=== PATIENT | male | born 1955 | race Caucasian/White ===

== ENCOUNTER 2016-03-29 04:05 | Inpatient (IN) | payer OTHER ==
[~2016-03-29] VITALS: Ht 177.8 cm; Wt 141.8 kg
[2016-03-29] VITALS (14 sets, daily range): BP systolic 123–173; BP diastolic 60–99; PULSE 58–65; TEMP 36.4–37.2; O2SAT 91–100; Ht 177.8 cm; Wt 141.8 kg
[~2016-03-29 04:05] MED LIST: ALBU0.08 INH; AMIO0.1T PO; ATOR10TA88 PO; DOCU100C31 PO; FLM4 PO; IPRASOL4 INH; LCTX PO; METO25TA56 PO; MULT-513 PO; OXGN XXX; PANT40TA PO; PLMIH INH; SYN100 PO; TYL325X PO; WARF-246 PO
--- NOTE | 2016-03-29 04:38 | EMERGENCY ROOM VISIT NOTE ---
History Report prepared by Nicola: Kareem Curry Under the Supervision of: Dr. Tiffany Vela D.O. First contact with patient: 04:24 Chief Complaint: RESPIRATORY PROBLEMS Stated Complaint: BREATHING DIFFICULTY Nursing Triage Summary: Pt was diagnosed with pneumonia recently with home antibiotics. Pt has been complaining of increased shortness of breath/difficulty breathing the past couple days with increase secretions of trach. EMS suctioned trach with pink secretions. History of Present Illness This HPI is limited due to the status of the patient. The patient is a 60 year old male who presents to the Emergency Room with complaints of worsening shortness of breath and difficulty breathing that he has been experiencing for the past couple of days. The patient states that his status has been worsening throughout the day today. Per EMS the patient was recently diagnosed with pneumonia and sent home with antibiotics. He has also had increased secretions in his tracheotomy site. 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 Past Medical & Surgical Medical Problems: (1) ADAM (acute kidney injury) (2) Asthma (3) Atrial fibrillation and flutter (4) Bacterial infection due to Pseudomonas (5) Chronic indwelling Fitch catheter (6) DVT of lower extremity (deep venous thrombosis) (7) Dyshidrosis (8) Dyslipidemia (9) HCAP (healthcare-associated pneumonia) (10) Heart failure, systolic, due to idiopathic cardiomyopathy (11) Hx MRSA infection (12) Hyperkalemia (13) Iron deficiency anemia (14) Lymphedema (15) Morbid obesity with BMI of 60.0-69.9, adult (16) Obesity hypoventilation syndrome (17) KEARA (obstructive sleep apnea) (18) Pneumonia (19) Respiratory failure, acute (20) Sepsis (21) SOB (shortness of breath) (22) Thrombophlebitis leg (23) Venous insufficiency Surgical Problems: (1) H/O tracheostomy (2) H/O ventral hernia repair Family History Diabetes mellitus FATHER FH: heart disease MOTHER (CABG at age 68) Social History Smoking Status: Never Smoker Alcohol Use: none Drug Use: none Marital Status: Housing Status: lives with significant other Occupation Status: disabled Current/Historical Medications Scheduled Amiodarone Hcl (Amiodarone Hcl), 100 MG PO DAILY Atorvastatin (Lipitor), 10 MG PO HS Dornase Darnell (Pulmozyme), 2.5 ML INH BID Lactobacillus Acidophilus (Lactinex), 2 TAB PO TID Levothyroxine Sodium (Synthroid), 100 MCG PO DAILYBB Metoprolol Tartrate (Lopressor) (Lopressor), 25 MG PO DAILY Multivitamins/Minerals (Mvi With Minerals), 1 TAB PO DAILY Oxygen (Oxygen), 5 LITER XXX CONTINOUS Pantoprazole (Protonix), 40 MG PO DAILY Tamsulosin HCl (Tamsulosin HCl), 0.4 MG PO HS Warfarin Sodium (Warfarin Sodium), 1 TAB PO DAILY Scheduled PRN Acetaminophen (Tylenol), 650 MG PO Q4H PRN for Pain Albuterol Soln (Proventil 0.083% 2.5MG/3ML), 2.5 MG INH Q4 PRN for SOB/Wheezing Docusate Sodium (Docusate Sodium), 1 CAP PO BID PRN for Constipation Ipratropium-Albuterol (Duoneb), 3 ML INH QIDR PRN for SOB/Wheezing Allergies Coded Allergies: Cefepime (Verified Allergy, Intermediate, RASH, 03/29/16) PER DR. LEVY Latex (Verified Allergy, Intermediate, DERMITITIS, 03/29/16) Aztreonam (Verified Allergy, Mild, RASH, 03/29/16) Physical Exam Vital Signs Date Time Temp Pulse Resp B/P Pulse Ox O2 Delivery O2 Flow Rate FiO2 03/29/16 07:03 60 30 165/69 91 Trach Collar 15.0 100 03/29/16 06:14 158/67 03/29/16 06:10 59 35 97 Trach Collar 15.0 03/29/16 05:59 162/64 03/29/16 05:49 64 03/29/16 05:40 61 36 97 03/29/16 05:31 65 03/29/16 05:29 125/55 03/29/16 05:26 60 03/29/16 05:10 71 37 03/29/16 05:05 58 25 90 Trach Collar 15.0 03/29/16 04:59 128/64 03/29/16 04:42 87 Non-Rebreather 15.0 03/29/16 04:35 59 37 94 03/29/16 04:29 109/70 12/19/16 04:19 60 03/29/16 04:16 62 03/29/16 04:16 63 03/29/16 04:15 107/60 03/29/16 04:14 71 03/29/16 04:12 130/ 03/29/16 04:05 Non-Rebreather 10.0 03/29/16 04:05 37.2 60 31 107/60 86 Non-Rebreather Physical Exam General: Morbidly obese male, cyanotic, lethargic HEENT: Head - normocephalic and atraumatic Pupils are equal, round, and reactive to light. Extraocular eye muscles are intact, and sclera are anicteric. Nose - moist nasal mucosa without discharge. Mouth - moist buccal mucosa. Oropharynx is nonerythematous and there is no tonsillar exudate or edema noted. Neck: Supple; no JVD, nuchal rigidity, cervical lymphadenopathy. Heart: Regular rate and rhythm. There is a normal S1 and S2 with no murmurs, clicks, or gallops appreciated. Lungs: Very diminished breath sounds in all lung olguin, with no wheezes, rales , or rhonchi. Abdomen: Soft, completely nontender, nondistended, with good bowel sounds. There are no palpable pulsatile masses or hepatosplenomegaly. There is no guarding, rigidity, or rebound noted. Extremities: No evidence of cyanosis, clubbing, or edema. There are easily palpable peripheral pulses. Skin: Cyanotic, pale warm and dry with good turgor and no rashes. Medical Decision & Procedures ER Provider Diagnostic Interpretation: X-ray results as stated below per interpretation by me and the radiologist: CHEST X-RAY: Cardiomegaly, cardiac pacemaker in place. Significant congestive heart failure. Laboratory Results Test 03/29/16 04:23 03/29/16 04:33 03/29/16 06:55 RDW Standard Deviation 51.6 fL (36.4-46.3) RDW Coefficient of Variation 15.7 % (11.5-14.5) White Blood Count 8.51 K/uL (4.8-10.8) Red Blood Count 3.67 M/uL (4.7-6.1) Hemoglobin 9.9 g/dL (14.0-18.0) Hematocrit 33.1 % (42-52) Mean Corpuscular Volume 90.2 fL (80-100) Mean Corpuscular Hemoglobin 27.0 pg (25-34) Mean Corpuscular Hemoglobin Concent 29.9 g/dl (32-36) Platelet Count 369 K/uL (130-400) Mean Platelet Volume 8.7 fL (7.4-10.4) Neutrophils (%) (Auto) 83.1 % Lymphocytes (%) (Auto) 9.6 % Monocytes (%) (Auto) 6.1 % Eosinophils (%) (Auto) 0.1 % Basophils (%) (Auto) 0.2 % Neutrophils # (Auto) 7.06 K/uL (1.4-6.5) Lymphocytes # (Auto) 0.82 K/uL (1.2-3.4) Monocytes # (Auto) 0.52 K/uL (0.11-0.59) Eosinophils # (Auto) 0.01 K/uL (0-0.5) Basophils # (Auto) 0.02 K/uL (0-0.2) Immature Granulocyte % (Auto) 0.9 % Immature Granulocyte # (Auto) 0.08 K/uL (0.00-0.02) Nucleated RBC Absolute Count (auto) 0.07 K/uL (0-0) Nucleated Red Blood Cells % 0.8 % Activated Partial Thromboplast Time 53.8 SECONDS (21.0-31.0) Partial Thromboplastin Ratio 2.1 Est Creatinine Clear Calc Drug Dose 111.3 ml/min Total Creatine Kinase 22 U/L (39-308) Creatine Kinase MB 2.4 ng/ml (0.5-3.6) Creatine Kinase MB Ratio 10.9 (0-3.0) Thyroid Stimulating Hormone (TSH) 6.400 uIu/ml (0.300-4.500) Free Thyroxine 0.99 ng/dl (0.80-1.60) Bedside Troponin I 0.100 ng/ml (0-0.045) ZP-Jfy-X-Type Natriuretic Peptide 37310 pg/ml (0-900) Arterial Blood pH 7.08 (7.35-7.45) Arterial Blood Partial Pressure CO2 129 mmHg (35-46) Arterial Blood Partial Pressure O2 79 mm/Hg (80-95) Arterial Blood HCO3 38 mmol/L (19-24) Arterial Blood Oxygen Saturation 90.9 % (90-95) Arterial Blood Base Excess 4.3 mEq/L (-9-1.8) Arterial Blood Gas Delivery 15 L TRACH Kenton Test POS (POS) Lactic Acid Level 0.7 mmol/L (0.4-2.0) Laboratory results per my review. Medications Administered Medications (Trade) Dose Ordered Sig/Kelly Route Start Time Stop Time Status Last Admin Dose Admin Albuterol/ Ipratropium (Duoneb) 3 ml NOW STAT INH 03/29/16 05:31 03/29/16 05:32 DC 03/29/16 05:42 3 ML Furosemide (Lasix Inj) 40 mg NOW STAT IV 03/29/16 05:32 03/29/16 05:33 DC 03/29/16 05:44 40 MG Methylprednisolone Sodium Succinate (Solu-Medrol IV) 125 mg NOW STAT IV 03/29/16 05:32 03/29/16 05:33 DC 03/29/16 05:44 125 MG Heparin Sodium (Porcine) 5 ml 5 ml STK-MED ONCE .ROUTE 03/29/16 05:43 03/29/16 05:44 DC 03/29/16 05:44 5 ML Phytonadione/ Sodium Chloride (Aqua-Mephyton Inj/Nss 50ml) 51 ml @ 102 mls/hr NOW STAT IV 03/29/16 06:45 03/29/16 07:14 DC 03/29/16 06:58 102 MLS/HR Albuterol (Ventolin Hfa Inhaler) 4 puffs Q6H INH 03/29/16 07:30 04/28/16 07:29 03/30/16 02:05 4 PUFFS Procedure Medications Ordered: Nebulizer ECG Indication: SOB/dyspnea Rate (beats per minute): 63 Rhythm: sinus rhythm Findings: PVC (multifocal ), prolonged QT (at 517) ED Course 0426: Past medical records reviewed. The patient was evaluated in room B8. A complete history and physical exam was performed. Laboratory studies were drawn as above. A twelve-lead EKG was obtained. The patient was observing the site monitor and pulse oximeter. 0445: Respiratory therapy is at bedside doing aggressive pulmonary toilet. To include tracheotomy suctioning, Mucomyst, and beta-agonist therapy. They describe a thick yellow/brown and bloody mucous that was suctioned from his trach. Patient had chest x-ray as described above. 0511: I reevaluated the patient at this time, he is at 97% O2 and appears to be breathing more comfortably. He remains lethargic. An ABG was obtained which showed severe respiratory acidosis. 0522: I discussed the case with Dr. Fan Harmon he will evaluate the patient for further treatment. Medical Decision This patient is a 60 year old male who presents to the Emergency Department in respiratory distress. Differential Diagnosis include: respiratory failure, pneumonia, CHF, tracheotomy malfunction. Laboratory results were reviewed and show: A blood pH of 7.15, pCO2 of 107, PO2 of 92, Bicarb of 37, While blood cell count of 8.5, hemoglobin of 8.9, BNP 97919 , troponin of 0.100, BUN of 24, Creatinine of 1.2, and glucose of 125. INR is greater than 8. The patient presents to the emergency department with hypoxic respiratory failure. The patient has a history of this. Patient most likely became significantly hypercarbic with respiratory acidosis. This is lead to some moderate lethargy and significant hypoxia. We did review the patient's CODE STATUS from previous inpatient paperwork. It seems that he is a full code. EMS stated that the patient's would be coming in. She did not arrive here in the emergency department while I was caring for him. I discussed the case with Dr. Decker and he will evaluate for further management. Consults Time Called: [phone] Consulting Physician: Dr. Fan Harmon Returned Call: [phone] I discussed the case with Dr. Fan Harmon he will evaluate the patient for further treatment. Impression Primary Impression: Respiratory failure with hypoxia Critical Care I have personally spent greater than 45 minutes of critical care time in the direct management of this patient. This includes bedside care, interpretation of diagnostic studies, and testing, discussion with consultants, patient, and family members, and other required patient management activities. This 45 minutes is in excess of all separately billable procedures. Scribe Attestation The scribe's documentation has been prepared under my direction and personally reviewed by me in its entirety. I confirm that the note above accurately reflects all work, treatment, procedures, and medical decision making performed by me. Departure Information Dispostion Being Evaluated By Hospitalist Referrals Brianna Torrez M.D. (PCP) Patient Instructions A Signature Page, My [facility]
[2016-03-29 04:39] LABS: BASO % 0.2 %; BASO ABS # 0.02 K/uL (0-0.2); COMPLETE YES; EOS % 0.1 %; HEMATOCRIT 33.1 % (42-52); IG% 0.9 %; LYMPH % 9.6 %; LYMPH ABS # 0.82 K/uL (1.2-3.4); MEAN CELL VOLUME 90.2 fL (80-100); MEAN CORPUSCULAR HGB CONC 29.9 g/dl (32-36); MEAN PLATELET VOLUME 8.7 fL (7.4-10.4); MONO % 6.1 %; NEUT % 83.1 %; PLATELET COUNT 369 K/uL (130-400); RED BLOOD COUNT 3.67 M/uL (4.7-6.1); WHITE BLOOD COUNT 8.51 K/uL (4.8-10.8)
[2016-03-29 04:52] LABS: POINT OF CARE TROPONIN I 0.1 ng/ml (0-0.045)
[2016-03-29 04:57] LABS: ARTERIAL BLD GAS O2 SATURATION 93.6 % (90-95); ARTERIAL BLOOD GAS BASE EXCESS 4.8 mEq/L (-9-1.8); ARTERIAL BLOOD GAS HCO3 37 mmol/L (19-24); ARTERIAL BLOOD GAS PO2 92 mm/Hg (80-95)
[2016-03-29 05:00] LABS: ALLEN TEST POS (POS); O2 ADMINISTRATION 15L
[2016-03-29 05:02] LABS: BUN/CREATININE RATIO 19.8 (10-20); CREATININE 1.2 mg/dl (0.60-1.40); POTASSIUM 4.6 mmol/L (3.5-5.1)
[2016-03-29 05:03] LABS: ARTERIAL BLOOD GAS pH 7.15 (7.35-7.45)
[2016-03-29 05:07] LABS: CALCIUM 9.3 mg/dl (8.5-10.1); CKMB/CK RATIO 10.9 (0-3.0)
[2016-03-29] MEDS ORDERED: FUROSEMIDE INJ 40 MG in SYRINGE 0 ML IV STA (05:25)
[2016-03-29] MEDS ORDERED: METHYLPREDNISOLONE IV 125 MG in SYRINGE 0 ML IV STA (05:27)
[2016-03-29] MEDS ORDERED: ALBUT/IPRATROP 3MG/0.5MG NEB 3 ML VIAL INH STA (05:31)
[2016-03-29] MEDS ORDERED: FUROSEMIDE 40 MG/4 ML VIAL IV STA (05:32)
[2016-03-29] MEDS ORDERED: METHYLPREDNISOLONE 125 MG VIAL IV STA (05:32)
[2016-03-29 05:54] LABS: MAGNESIUM 2.1 mg/dl (1.8-2.4)
[2016-03-29 06:07] LABS: THYROID STIMULATING HORMONE 6.4 uIu/ml (0.300-4.500)
[2016-03-29 06:25] LABS: PARTIAL THROMBOPLASTIN RATIO 2.1; PROTHROMBIN TIME (PATIENT) > 100.0 SECONDS (9.0-12.0)
[2016-03-29 06:31] LABS: INR > 8.0 (0.9-1.1)
[2016-03-29] MEDS ORDERED: PHYTONADIONE INJ 10 MG in SODIUM CHLORIDE 0.9% 50ML 50 ML IV STA (06:45)
[2016-03-29 07:07] LABS: ARTERIAL BLD GAS O2 SATURATION 90.9 % (90-95); ARTERIAL BLOOD GAS BASE EXCESS 4.3 mEq/L (-9-1.8); ARTERIAL BLOOD GAS HCO3 38 mmol/L (19-24); ARTERIAL BLOOD GAS PO2 79 mm/Hg (80-95)
[2016-03-29 07:13] LABS: ALLEN TEST POS (POS); ARTERIAL BLOOD GAS pH 7.08 (7.35-7.45); O2 ADMINISTRATION 15 L TRACH
--- NOTE | 2016-03-29 07:15 | DIAGNOSTIC IMAGING REPORT ---
HEAD CT NONCONTRAST CT DOSE: 614.27 mGy.cm HISTORY: Altered mental status. TECHNIQUE: Multiaxial CT images of the head were performed without the use of intravenous contrast. Automated exposure control was utilized for this study. Comparison: None. Findings: The paranasal sinuses and mastoid air cells are clear. Mild ventricular prominence may be due to mild central atrophy. There is no mass, hematoma, midline shift, acute infarct. Impression: No acute intracranial abnormality. Electronically signed by: Julien Linton M.D. 03/29/2016 7:13 AM
[2016-03-29] MEDS ORDERED: ACETAMINOPHEN IV 650 MG in EMPTY BAG 0 ML IV PRN (07:30)
--- NOTE | 2016-03-29 07:38 | DIAGNOSTIC IMAGING REPORT ---
CHEST ONE VIEW PORTABLE HISTORY: Short of breath. eval for hypoxia COMPARISON: Chest 03/19/2016. FINDINGS: The heart remains enlarged. There is a left-sided dual-chamber pacemaker. No pneumothorax. The right-sided PICC terminates at the superior cavoatrial junction. Mild interstitial pulmonary edema has progressed. Moderate left pleural effusion and left retrocardiac opacity have also progressed. IMPRESSION: 1. Progression of the pulmonary edema. 2. Progression of the moderate left pleural effusion with associated left retrocardiac airspace opacity. This could represent pneumonia or compressive atelectasis. Electronically signed by: Julien Linton M.D. 03/29/2016 7:37 AM
[2016-03-29] MEDS ORDERED: PIPERACILL/TAZOBAC CONSULT ACTIVE PRN (07:45)
[2016-03-29] MEDS ORDERED: VANCOMYCIN CONSULT ACTIVE PRN ×2 (07:45→08:15)
[2016-03-29] MEDS ORDERED: PIPERACILLIN/TAZOBACTAM 4.5 GM/100ML D5W IV ONE (07:45)
--- NOTE | 2016-03-29 08:48 | DIAGNOSTIC IMAGING REPORT ---
CT SCAN OF THE CHEST WITHOUT IV CONTRAST CLINICAL HISTORY: Hemoptysis. COMPARISON STUDY: Chest CT scan dated 03/11/2016. TECHNIQUE: CT scan of the thorax was performed from the thoracic inlet to the upper abdomen. Images are reviewed in the axial, sagittal, and coronal planes. IV contrast was not administered for this examination. The examination is significantly degraded by large body habitus, and by streak artifact from the body wall abutting the CT gantry. There is also marked streak artifact from the patient's arms which could not be elevated above the chest. Motion artifact also degrades the study. CT DOSE: 1288.63 mGy.cm FINDINGS: Thyroid: Imaged portions of the thyroid gland are normal in size and attenuation. Thoracic aorta: There is atherosclerotic calcification of the thoracic aorta, which is normal in caliber and demonstrates standard 3-vessel arch anatomy. A right PICC line is in place. Heart: A cardiac pacemaker is present in the left chest wall. Leads terminate in the right atrial appendage and the right ventricle. The heart is markedly enlarged and without pericardial effusion. The pulmonary trunk is dilated, measuring up to 4.9 cm in transverse diameter. This suggests pulmonary artery hypertension. Lungs and pleural spaces: Evaluation of the lung parenchyma is significantly degraded by motion artifact. A tracheostomy is in place. The trachea and central airways appear clear. There is a moderate left pleural effusion with near complete consolidation/atelectasis throughout the left lung. Milder patchy airspace consolidation is seen in the right mid to lower lung. There is only a trace right pleural effusion. Mediastinum: Mediastinal lymphadenopathy is identified. A high right paratracheal node on image #56 measures 1.3 cm in short axis. Deena: Not well assessed without IV contrast. Axillae: There is no axillary lymphadenopathy. Upper abdomen: There is a small hiatal hernia. Partially visualized upper abdominal viscera is otherwise grossly normal as imaged. Skeletal structures: No lytic or blastic bony lesions are seen. IMPRESSION: 1. Significantly streak and motion artifact degraded examination as above 2. Marked cardiomegaly and cardiac pacemaker with evidence of pulmonary artery hypertension. 3. There is a moderate left pleural effusion with extensive consolidation and atelectasis throughout the right lung lung. Correlate clinically for evidence of pneumonia. This has progressed from the 03/11/2016 examination. Follow-up to resolution is recommended. 4. More patchy airspace consolidation is seen in the right middle lower lung with a trace right pleural effusion. 5. Mildly enlarged mediastinal lymph nodes are likely on a reactive basis. Electronically signed by: Alex Pena M.D. 03/29/2016 8:46 AM
[2016-03-29] MEDS ORDERED: VANCOMYCIN INJ 2,800 MG in SODIUM CHLORIDE 0.9% 500ML 500 ML IV ONE (09:00)
--- NOTE | 2016-03-29 09:11 | HISTORY & PHYSICAL EXAMINATION ---
DATE OF ADMISSION: 03/29/2016 PRIMARY CARE DOCTOR: Dr. Torrez. History obtained from records, patient's . Unable to obtain secondary to lethargic state. CHIEF COMPLAINT: Respiratory problems as per records, hemoptysis as per . HISTORY OF PRESENT ILLNESS: Medical history significant for chronic resp failure 2 to obesity hypoventilation (CPAP noncompliance) sp tracheostomy, chronic systolic HF 2 to non-ischemic cardiomyopathy (EF 45%), SSS sp PPM/ hx DVT on coumadin, chronic anemia (baseline hemoglobin 9), hypothyroidism, history of MRSA, Pseudomonas, hx BPH sp indwelling Fitch. Recent confinement from about 2 weeks ago for acute on chronic hypoxemic hypercapnic respiratory failure secondary to Pseudomonas pneumonia. The patient completed Zosyn tx. Patient discharged home. Last few days, yesterday more labored breathing, patient coughing out junk as per , not really better after discharge from the hospital, hemoptysis noted. No fever, no chills. Patient brought to the Emergency Room. Noted to be very hypoxemic and lethargic. Copious tracheostomy secretions suctioned out. MEDICAL HISTORY: As above. SURGERIES: He has had a tracheostomy, hernia repair. HOME MEDICATIONS: Include acetaminophen, albuterol, atorvastatin, docusate sodium, ipratropium, Lactobacillus, levothyroxine, Toprol, multivitamins, Protonix, tamsulosin, Coumadin, amiodarone, oxygen gas. ALLERGIES: AZTREONAM, LATEX. FAMILY HISTORY: Could not be obtained. PERSONAL AND SOCIAL HISTORY: Disabled. REVIEW OF SYSTEMS: could not be obtained. PHYSICAL EXAMINATION: VITAL SIGNS: Blood pressure was noted to be 107/60, pulse rate 60, RR 31, temperature 37, O2 sats 86 on nonrebreather. SKIN: Pallor GENERAL: Noted to be lethargic. Chronically ill, morbidly obese. HEENT: Pale palpebral conjunctivae. Dry mucosa. NECK: Short neck, tracheostomy noted. CHEST: Decreased effort. HEART: RRR ABDOMEN: Some distention. NT EXTREMITIES: Venous stasis. No tenderness. NEUROLOGIC: Lethargic. LABORATORIES: Hemoglobin was noted to be 9.9, hematocrit 30, white cell count 8.5, platelets 369. Sodium 141, potassium 4.6, chloride 98, CO2 of 35, BUN 24, creatinine 1.2, glucose 105. Troponin was 0.152. INR was noted to be > 8. ABG pH 7.15, pCO2 of 107, pO2 of 92 on 15 liters. Chest x-ray showed congestion, pleural effusion, more on the left with infiltrate. CT of the head, no acute intracranial pathology. CT of the chest read pending. EKG, rate 65, normal sinus rhythm, normal axis, T-wave inversion on the anterior leads, PVCs. ASSESSMENT: 1. Acute on chronic hypoxemic, hypercapnic respiratory failure, hx OSAHS, CPAP non-compliance sp tracheostomy multifactorial : healthcare-associated pneumonia, no sepsis. Recent admission for Pseudomonas pneumonia sp tx, hx MRSA decompensated heart failure (non-ischemic cardiomyopathy, EF 455) 2. hemoptysis secondary to HCAP, Coumadin coagulopathy. chronic anemia. hemoglobin at baseline. 3. hx deep venous thrombosis, SSS sp PPM on anticoag NSR, INR is supratherapeutic 4. hypertension, stable 5. Hx R renal mass as per records, possible malignancy 6. Functional disability. Recurrent admissions. PLAN: ICU Vent management. Recheck ABG Solu-Medrol, nebs RTC p.r.n., CS, Vancomycin, Zosyn diuretic therapy Reversal of coagulopathy with vitamin K in order with hemoptysis. Follow CT chest results. serial HH, transfuse prbc if Hg less than 7 and or/for symptomatic anemia Pulmonary consult RE hemoptysis. Cardiology consult RE CHF PT, OT eval once patient awake. Social service RE discharge planning Level 2 Code status as per , Mrs. Lian Gusman. Okay with MV. No CPR. Contact number [phone]. Total critical care time was 60 minutes. Case discussed with Dr. Kaminski, chief of harbor patrol complaint evaluation officer. RINKU
[2016-03-29 09:54] LABS: ISTAT ALLEN TEST Pass; ISTAT ARTERIAL BLOOD GAS HCO3 37 meq/L (19-24); ISTAT ARTERIAL BLOOD GAS PCO2 99 mmHg (35-46); ISTAT ARTERIAL BLOOD GAS PO2 134 mmHg (80-95); ISTAT ARTERIAL BLOOD GAS pH 7.18 (7.35-7.45); ISTAT CARBON DIOXIDE > 40 mEq/l (24-31); ISTAT DELIVERY SYSTEM Ventilator; ISTAT FIO2 100 %; ISTAT PEEP 5; ISTAT RATE 12; ISTAT SITE R Radial; VE 5.6; Vt 500
[2016-03-29 11:53] LABS: ISTAT ALLEN TEST Pass; ISTAT ARTERIAL BLOOD GAS HCO3 34 meq/L (19-24); ISTAT ARTERIAL BLOOD GAS PCO2 67 mmHg (35-46); ISTAT ARTERIAL BLOOD GAS PO2 53 mmHg (80-95); ISTAT ARTERIAL BLOOD GAS pH 7.31 (7.35-7.45); ISTAT CARBON DIOXIDE 36 mEq/l (24-31); ISTAT DELIVERY SYSTEM Ventilator; ISTAT FIO2 60 %; ISTAT PEEP 8; ISTAT RATE 18; ISTAT SITE R Radial; Vt 500
[2016-03-29] MEDS: METOPROLOL TARTRATE 1 MG/ML VIAL IV. SCH ×2 (11:58→19:07)
[2016-03-29] MEDS: PANTOprazole INJ 40 MG in SYRINGE 0 ML IV SCH (11:59)
[2016-03-29 12:13] LABS: HEMATOCRIT 30.7 % (42-52)
--- NOTE | 2016-03-29 12:23 | Critical Care Consultation ---
Critical Care Consultation Date of Consultation: Mar 29, 2016. Attending Physician: Paz Mccarthy M.D. Reason for Consultation: ICU admission, respiratory failure History of Present Illness Mr Gusman is a 60 year old male with significant past medical history obesity hypoventilation s/p tracheostomy (refusal of BiPAP), chronic iridopathic cardiomyopathy, Hx DVT on anticoagulation, sick sinus syndrome s/p pacemaker, chronic anemia, hypothyroidism, Hx MRSA, Pseudomonas, BPH with indwelling catheter admitted with increasing shortness of breath and acute on chronic hypercapnic, hypoxic respiratory failure. He has 5L O2 at home History taken from his , Tammy, as patient is unable to answer questions secondary to metabolic encephalopathy. She notes he was discharged home on the 20 March with a PICC line for antibiotics for pseudomonas (from trach) and he seemed to be stable for the last week up until Tuesday. He was coughing up phlegm through the tracheostomy but this is not unusual for him. Since discharge he has not had the right equipment for the BiPAP with the tracheostomy therefore he has not been on this at home. On Tuesday he was feeling slightly nauseous and eating less than usual, he did not complain of any abdominal pain and no vomiting. On Tuesday he slowly became more short of breath and was coughing but unable to produce any sputum. Suctioning helped she also noticed a small amount of blood after one attempt. His breathing became much worse at night and she was unable to cope so called an ambulance. She notes his INR was done on Tuesday and his warfarin was increased but she does not know what the INR was at this time. His catheter has been draining urine but she has noticed it "popping out", although not to the extent that the balloon comes out, when this happens home health usually replace it or she cleans it up and pushes it back in. He has had multiple recent admissions to the ICU for chronic respiratory failure. He has previous declined detention placement. Recent admissions summarized below. 05 November - 28 November: atrial flutter, sepsis acute on chronic hypercarbic respiratory failure requiring intubation November: ADAM/CKD III with hyperkalemia and dyspnea - Jan: Hypoxic/hypercarbic respiratory failure + intubation with tracheostomy (excision of thyroglossal duct cyst) and dual chamber pacemaker implanted. Sputum trach culture - pseudomonas - Feb: Dyspnea with concern for dislodged trach - replaced by ENT with #8 Shiley - Cuffed /Pipe Sputum - MRSA. Feb - 20 March: Hypoxic, hypercapnic respiratory failure. Bronchoscopy - grew pseudomonas. Treated with two weeks total of Zosyn ( finished 28 March) Past Medical/Surgical History PMHx Idiopathic cardiomyopathy - Ejection Fraction 45-50%. Morbid obesity Obesity hypoventilation Chronic respiratory failure on home O2 - s/p tracheostomy, refusal of BiPAP Hx DVT on chronic anticoagulation (warfarin) Hx atrial flutter Sick sinus syndrome s/p dual chamber pacemaker Chronic normocytic anemia (anemia of chronic disease) Hypothyroidism Hx MRSA and Pseudomonas (resistant to Levaquin, ciprofloxacin and aztreonam) from previous sputum trach washings. BPH with indwelling catheter Severe chronic lymphedema PSHx 1. Tracheostomy: 2. Tracheostomy with excision of thyroglossal duct cyst 02/2016 3. Pacemaker implantation - dual chamber: 01/1016 4. Ventral Hernia repair Family History Diabetes mellitus FATHER FH: heart disease MOTHER (CABG at age 68) Social History Smoking Status: Current Some Day Smoker Drug Use: none Marital Status: Housing Status: lives with significant other Occupation Status: disabled Allergies Coded Allergies: Cefepime (Verified Allergy, Intermediate, RASH, 03/29/16) PER DR. KAMINSKI Latex (Verified Allergy, Intermediate, DERMITITIS, 03/29/16) Aztreonam (Verified Allergy, Mild, RASH, 03/29/16) Home Medications Scheduled Amiodarone Hcl (Amiodarone Hcl), 100 MG PO DAILY Atorvastatin (Lipitor), 10 MG PO HS Dornase Darnell (Pulmozyme), 2.5 ML INH BID Lactobacillus Acidophilus (Lactinex), 2 TAB PO TID Levothyroxine Sodium (Synthroid), 100 MCG PO DAILYBB Metoprolol Tartrate (Lopressor) (Lopressor), 25 MG PO DAILY Multivitamins/Minerals (Mvi With Minerals), 1 TAB PO DAILY Oxygen (Oxygen), 5 LITER XXX CONTINOUS Pantoprazole (Protonix), 40 MG PO DAILY Tamsulosin HCl (Tamsulosin HCl), 0.4 MG PO HS Warfarin Sodium (Warfarin Sodium), 1 TAB PO DAILY Scheduled PRN Acetaminophen (Tylenol), 650 MG PO Q4H PRN for Pain Albuterol Soln (Proventil 0.083% 2.5MG/3ML), 2.5 MG INH Q4 PRN for SOB/Wheezing Docusate Sodium (Docusate Sodium), 1 CAP PO BID PRN for Constipation Ipratropium-Albuterol (Duoneb), 3 ML INH QIDR PRN for SOB/Wheezing Current Inpatient Medications Current Inpatient Medications Medications (Trade) Dose Ordered Sig/Kelly Route Start Time Stop Time Status Last Admin Dose Admin Vancomycin HCl/ Sodium Chloride (Vancomycin Inj/ Nss 250ml) 270 ml @ 125 mls/hr UD IV 03/29/16 09:01 04/08/16 09:00 UNV Piperacillin Sod/ Tazobactam Sod (Consult) 1 ea UD PRN N/A 03/29/16 07:45 04/28/16 07:44 Vancomycin HCl 1 ea 1 ea UD PRN N/A 03/29/16 07:45 04/28/16 07:44 Pantoprazole Sodium/Syringe (Protonix Inj/ Syringe) 10 ml @ 5 mls/min DAILY IV 03/29/16 09:00 04/28/16 08:59 Metoprolol Tartrate 2.5 mg 2.5 mg Q6H IV. 03/29/16 12:00 04/28/16 11:59 Acetaminophen 650 mg/Empty Bag 65 ml @ 260 mls/hr Q6H PRN IV 03/29/16 07:30 04/28/16 07:29 Methylprednisolone Sodium Succinate/ Syringe (Solu-Medrol IV/ Syringe) 0.64 ml @ 1.5 mls/min Q8H IV 03/29/16 14:00 04/28/16 13:59 Albuterol (Ventolin Hfa Inhaler) 4 puffs Q6H INH 03/29/16 07:30 04/28/16 07:29 Ipratropium [place] 4 puffs 4 puffs Q6R INH 03/29/16 09:00 04/28/16 08:59 Vancomycin HCl 2800 mg/Sodium Chloride 556 ml @ 200 mls/hr TODAY@0900 ONCE IV 03/29/16 09:00 03/29/16 11:46 03/29/16 09:23 200 MLS/HR Furosemide/Syringe (Lasix Inj/ Syringe) 4 ml @ 4 mls/min TODAY@2100 ONCE IV 03/29/16 21:00 03/29/16 21:01 Review of Systems Unable to perform ROS as patient is not alert Physical Exam Date Time Temp Pulse Resp B/P Pulse Ox O2 Delivery O2 Flow Rate FiO2 03/29/16 09:52 60 03/29/16 08:49 100 03/29/16 07:52 37.2 62 18 157/67 91 Trach Collar 15.0 100 03/29/16 07:49 62 31 157/67 91 Trach Collar 15.0 100 03/29/16 07:48 60 03/29/16 07:03 60 30 165/69 91 Trach Collar 15.0 100 03/29/16 06:14 158/67 03/29/16 06:10 59 35 97 Trach Collar 15.0 03/29/16 05:59 162/64 03/29/16 05:49 64 03/29/16 05:40 61 36 97 03/29/16 05:31 65 03/29/16 05:29 125/55 03/29/16 05:26 60 03/29/16 05:10 71 37 03/29/16 05:05 58 25 90 Trach Collar 15.0 03/29/16 04:59 128/64 03/29/16 04:42 87 Non-Rebreather 15.0 03/29/16 04:35 59 37 94 03/29/16 04:29 109/70 03/29/16 04:19 60 03/29/16 04:16 62 03/29/16 04:16 63 03/29/16 04:15 107/60 03/29/16 04:14 71 03/29/16 04:12 130/ 03/29/16 04:05 Non-Rebreather 10.0 03/29/16 04:05 37.2 60 31 107/60 86 Non-Rebreather General Appearance: no apparent distress, + obese Eyes: normal inspection (pupils small but equal b/l) ENT: + pertinent finding (patient mechanically ventilated with tracheostomy.) Neck: supple, + pertinent finding (unable to assess JVD due to neck size) Respiratory/Chest: + rales (throughout, b/l breath sounds present), + pertinent finding (mechanically ventilated through tracheostomy) Cardiovascular: regular rate, rhythm, no murmur (very quiet HS, no murmurs appreciated) Abdomen/GI: soft, + pertinent finding (difficult to exam due to obesity but does not appear distended. bowel sounds present, non tender) Genitourinary - Male: + pertinent finding (Davey cath in place. Penis retracted in testicular skin fold. Urethral meatus does not appear irritated on infected. Large swollen b/l testicles.) Extremities/Musculoskelatal: normal capillary refill, + pedal edema (+++ stable chronic leg swelling b/l with venous stasis skin changes) Neurologic/Psych: + pertinent finding (patient makes cough movements and groans to pain. Unable to follow commands at this time.) Skin: + pertinent finding (no cellulitic changes seen anteriorly on legs, abdomen, chest and arms. Multiple areas of skin breakdown with white cream and small amount of blood in skin folds.) Laboratory Results Last 24 Hours Test 03/29/16 04:23 03/29/16 04:33 03/29/16 04:39 03/29/16 06:55 White Blood Count 8.51 K/uL Red Blood Count 3.67 M/uL Hemoglobin 9.9 g/dL Hematocrit 33.1 % Mean Corpuscular Volume 90.2 fL Mean Corpuscular Hemoglobin 27.0 pg Mean Corpuscular Hemoglobin Concent 29.9 g/dl Platelet Count 369 K/uL Mean Platelet Volume 8.7 fL Neutrophils (%) (Auto) 83.1 % Lymphocytes (%) (Auto) 9.6 % Monocytes (%) (Auto) 6.1 % Eosinophils (%) (Auto) 0.1 % Basophils (%) (Auto) 0.2 % Neutrophils # (Auto) 7.06 K/uL Lymphocytes # (Auto) 0.82 K/uL Monocytes # (Auto) 0.52 K/uL Eosinophils # (Auto) 0.01 K/uL Basophils # (Auto) 0.02 K/uL RDW Standard Deviation 51.6 fL RDW Coefficient of Variation 15.7 % Immature Granulocyte % (Auto) 0.9 % Immature Granulocyte # (Auto) 0.08 K/uL Nucleated RBC Absolute Count (auto) 0.07 K/uL Nucleated Red Blood Cells % 0.8 % Prothrombin Time > 100.0 SECONDS Prothromb Time International Ratio > 8.0 Activated Partial Thromboplast Time 53.8 SECONDS Partial Thromboplastin Ratio 2.1 Sodium Level 141 mmol/L Potassium Level 4.6 mmol/L Chloride Level 98 mmol/L Carbon Dioxide Level 35 mmol/L Anion Gap 8.0 mmol/L Blood Urea Nitrogen 24 mg/dl Creatinine 1.20 mg/dl Est Creatinine Clear Calc Drug Dose 111.3 ml/min Estimated GFR () 76.3 Estimated GFR (Non- 65.8 BUN/Creatinine Ratio 19.8 Random Glucose 105 mg/dl Calcium Level 9.3 mg/dl Magnesium Level 2.1 mg/dl Total Creatine Kinase 22 U/L Creatine Kinase MB 2.4 ng/ml Creatine Kinase MB Ratio 10.9 Troponin I 0.152 ng/ml Thyroid Stimulating Hormone (TSH) 6.400 uIu/ml Free Thyroxine 0.99 ng/dl Bedside Troponin I 0.100 ng/ml [id number] Natriuretic Peptide 74599 pg/ml Arterial Blood pH 7.15 7.08 Arterial Blood Partial Pressure CO2 107 mmHg 129 mmHg Arterial Blood Partial Pressure O2 92 mm/Hg 79 mm/Hg Arterial Blood HCO3 37 mmol/L 38 mmol/L Arterial Blood Oxygen Saturation 93.6 % 90.9 % Arterial Blood Base Excess 4.8 mEq/L 4.3 mEq/L Arterial Blood Gas Delivery 15L 15 L TRACH [place]on Test POS POS Lactic Acid Level 0.7 mmol/L Test 03/29/16 07:25 03/29/16 09:40 Troponin I 0.132 ng/ml Blood Gas Sample Site R Radial Bedside Blood Gas pH (LAB) 7.18 Bedside Blood Gas pCO2 (LAB) 99 mmHg Bedside Blood Gas pO2 (LAB) 134 mmHg Bedside Blood Gas HCO3 (LAB) 37 meq/L Bedside Blood Gas Total CO2 > 40 mEq/l Bedside Blood Gas Base Excess (LAB) 8.0 meq/L Bedside Blood Gas O2 Saturation 98.0 % Kenton Test Pass Oxygen Delivery Device Ventilator Bedside Oxygen Rate (breaths/min) 12 Blood Gas Minute Ventilation 5.6 Bedside FiO2 100 % Blood Gas Tidal Volume 500 Blood Gas PEEP [address] NONCONTRAST Impression: No acute intracranial abnormality. CT SCAN OF THE CHEST WITHOUT IV CONTRAST Impression: 1. Significantly streak and motion artifact degraded examination as above 2. Marked cardiomegaly and cardiac pacemaker with evidence of pulmonary artery hypertension. 3. There is a moderate left pleural effusion with extensive consolidation and atelectasis throughout the right lung lung. Correlate clinically for evidence of pneumonia. This has progressed from the 03/11/2016 examination. Follow-up to resolution is recommended. 4. More patchy airspace consolidation is seen in the right middle lower lung with a trace right pleural effusion. 5. Mildly enlarged mediastinal lymph nodes are likely on a reactive basis. CHEST ONE VIEW PORTABLE Impression: 1. Progression of the pulmonary edema. 2. Progression of the moderate left pleural effusion with associated left retrocardiac airspace opacity. This could represent pneumonia or compressive atelectasis. Assessment & Plan 60 yo male with acute on chronic hypoxic, hypercapnic respiratory failure with multiple co-morbidities listed above. Acute on chronic hypoxic respiratory failure - obesity hypoventilation s/p tracheostomy. Suspect cause for acute deterioration is more likely not having BiPAP at home rather than a new pneumonia. - pH 7.169, pCO2 101.8, p02 139 on Fi02 100%, Rate12. Increase Rate to 18, Increase PEEP 8. Wean O2 as per saturations allow to aim 90-92%. - Continue on mechanically assisted ventilation until more alert. - repeat ABG 11:00 - sputum culture from the trach suction - Pulmonology consulted Metabolic encephalopathy - CT head negative - Assumed hypercapnia related so will re-assess as his CO2 comes down Recent pseudomonas pneumonia - WBC not elevated, possible consolidation on CT and CXR - procalcitonin to assess need for continuing antibiotics. If decision is to continue will get ID involved as he was just on a 14 day course Zosyn. - sputum culture from trach - blood cultures pending - previous diagnosis and treated with total course of Urinary retention - despite chronic davey catheter (easily blocked). BPH, also morbid obesity causing external compression. Renal function at baseline. - UA cath + culture - Will hold off on re-catheterization at this time since INR >8 and likely difficult catheterization due to morbid obesity - Continue to flush and aspirate davey cath every shift. - Had right renal mass on CT February; was seen by Dr. Persaud with plan for outpatient f/u, unsure of status of this Idiopathic cardiomyopathy - Ejection Fraction 45-50% - unable to take metoprolol due to Hx Atrial flutter with RVR and Sick sinus syndrome s/p dual chamber pacemaker - holding amiodarone and metoprolol while NPO. Will treat with IV metoprolol as required. - Cardiology consulted Skin - multiple areas of skin breakdown within skin folds. - consult wound care Hypothyroidism - TSH high, free T4 normal. Continue levothyroxine when more alert and can take pills. Will switch to IV tomorrow if he is unable to swallow. Recommend repeat TSH in 4 weeks. Chronic normocytic anemia (anemia of chronic disease) - appears stable, monitor daily CBC VTE Prophylaxis (Hx DVT on chronic warfarin anticoagulation) - INR >8, Vit K 10mg given. Will trend INR. GI Prophylaxis - Pantoprazole 40 mg IV Resident Physician Supervision Note: I interviewed and examined the patient. Discussed with Dr. Shearer and agree with findings and plan as documented in the note. Any exceptions or clarifications are listed here: The patient arrives to ICU from home then ED after not having a bipap or vent device at his disposal. Although he has KEARA and has a trach, he still also has obesity hypoventilation syndrome and it is not surprising to me that he had a pCO2 over 100. After being ventilated for several hours once he got to the ICU he was awake. He has recently been treated for pseud. PNA with Zosyn and was at risk for aspiration while lethargic but procalcitonin is low and wbc is wnl. He is on Zosyn again (choices are a bit limited due to multiple allergies) for now as well as IV steroids. Will see if he develops secretions and wait for cultures but he may not require them. D/C steroids today. Try on CPAP tomorrow and perhaps off vent. If so, begin diet. INR is elevated - follow, hold coumadin and watch for bleeding. Will hold on pulmonary consult and try to determine what the arrangements were supposed to be for when he went home as far as equipment and settings go. Hemoptysis was described as blood tinged sputum which is not all that surprising given his elevated INR. Disposition may be an issue. I am concerned about his 's ability to care for him. By report he has repeatedly refused going to a skilled facility. Critical care time 35 min. Documented By: Dana Kaminski
[2016-03-29 13:02] LABS: URINE APPEARANCE CLOUDY (CLEAR); URINE BILIRUBIN NEG (NEG); URINE COLOR YELLOW; URINE EPITHELIAL CELL AUTO 20-30 /lpf (0-5); URINE NITRITE NEG (NEG); URINE SPECIFIC GRAVITY 1.006 (1.000-1.030); UROBILINOGEN NEG (NEG)
[2016-03-29 13:15] LABS: MANUAL MICROSCOPIC REQUIRED? NO; REVIEW REQ? YES
[2016-03-29] MEDS: METHYLPREDNISOLONE IV 40 MG in SYRINGE 0 ML IV SCH ×2 (13:56→21:33)
[2016-03-29] MEDS: PIPERACILL/TAZOBAC IV 4.5 GM in DEXTROSE 5% 100ML IV SCH ×2 (13:56→21:33)
[2016-03-29] MEDS ORDERED: VANCOMYCIN INJ 1,000 MG in SODIUM CHLORIDE 0.9% 250ML 250 ML IV ONE (14:00)
[2016-03-29 14:32] LABS: ISTAT ALLEN TEST Pass; ISTAT ARTERIAL BLOOD GAS HCO3 34 meq/L (19-24); ISTAT ARTERIAL BLOOD GAS PCO2 54 mmHg (35-46); ISTAT ARTERIAL BLOOD GAS PO2 72 mmHg (80-95); ISTAT ARTERIAL BLOOD GAS pH 7.41 (7.35-7.45); ISTAT CARBON DIOXIDE 36 mEq/l (24-31); ISTAT DELIVERY SYSTEM Ventilator; ISTAT FIO2 60 %; ISTAT PEEP 8; ISTAT RATE 18; ISTAT SITE R Radial; VE 8.3; Vt 500
[2016-03-29] MEDS: IPRATROPIUM BROMIDE HFA INHALER INH SCH (21:00)
[2016-03-29] MEDS ORDERED: FUROSEMIDE INJ 40 MG in SYRINGE 0 ML IV SCH (21:00)
[2016-03-29] MEDS: ALBUTEROL HFA 8 GM INHALER INH SCH (21:00)
[2016-03-29] MEDS ORDERED: FUROSEMIDE INJ 40 MG in SYRINGE 0 ML IV ONE (21:00)
--- NOTE | 2016-03-29 23:00 | CARDIOLOGY CONSULTATION ---
DATE OF CONSULTATION: 03/29/2016 REFERRING PHYSICIAN: Dr. Mehul Coker. REASON FOR CONSULTATION: Congestive heart failure and hypoxemic respiratory failure. HISTORY OF PRESENT ILLNESS: Mr. Gusman is a complex 60-year-old gentleman who is well known to the cardiology service. He presented to the Emergency Department with respiratory distress. His symptoms apparently progressive for more than 1 day. The patient is currently sedated on a ventilator and unable to offer history. Per review of the records, the patient was recently diagnosed with pneumonia and treated with antibiotics. Per discussions with the critical care service, the patient was found lying on a garbage bag and fecal material. There is also reported increased secretions near his tracheostomy site. His CAT scan demonstrates diffuse infiltrates in the left lung. Nursing has been suctioning thick secretions. He also notes dark colored urine as well as possible pus. No change in the patient's chronic edema. He is bed bound. He received a dose of intravenous Lasix as well as antibiotic therapy in the Emergency Department. He is markedly acidotic due to elevated CO2. This is improving with ventilation. No significant elevation of troponin. No complaints of chest discomfort prior to admission. REVIEW OF SYSTEMS: The pertinent positive noted above, comprehensive 10-system review could not be completed as the patient is sedated on the ventilator. PAST MEDICAL HISTORY: 1. Atrial flutter with 1:1 conduction and tachybrady syndrome, status post pacemaker implantation. 2. Chronic anticoagulation due to history of DVT and atrial flutter. 3. Atrial fibrillation. 4. Chronic systolic heart failure. 5. Chronic edema. 6. Morbid obesity. 7. Chronic venous stasis ulcers of the lower extremities. 8. Obesity hypoventilation syndrome with intolerance to CPAP. 9. Noncompliance. 10. Hypothyroidism. PAST SURGICAL HISTORY: 1. Tracheostomy. 2. Ventral hernia repair. 3. Pacemaker implantation. FAMILY HISTORY: 1. Mother of heart disease and had coronary artery bypass grafting at age 68. 2. Father of complications of diabetes and brother with cancer. SOCIAL HISTORY: No history of alcohol use. He does not smoke cigarettes. Lives at home with his . ALLERGIES: LISTED TO LATEX. OUTPATIENT MEDICATIONS: 1. Amiodarone 100 mg daily. 2. Atorvastatin 10 mg at bedtime. 3. Pulmozyme 2.5 mL inhaled twice daily. 4. Lactinex 2 tablets 3 times daily. 5. Synthroid 100 mcg daily. 6. Lopressor 25 mg daily. 7. Multivitamin daily. 8. Oxygen 5 liters continuous through tracheostomy. 9. Protonix 40 mg daily. 10. Tamsulosin 0.4 mg at bedtime. 11. Coumadin 1 tablet daily. EKG on admission has sinus rhythm, intermittent demand atrial pacing, premature ventricular complexes, ventricular couplets, and prolonged QT. LABORATORY DATA: White blood cell count 8.51, hemoglobin 9.9, and platelet count 369. ABG on admission 7.08/129/79/38/90.9% on 15 liters per trach. Repeat ABG at 09:40 a.m. 7.18/99/134/37/90% on the ventilator, 100% FiO2. Troponin 0.132. Sodium 141, potassium 4.6, chloride 98, CO2 of 35, BUN 24, and creatinine 1.20. TSH 6.00. INR greater than 8.0 on admission. PHYSICAL EXAMINATION: VITAL SIGNS: Temperature is 37.2 degrees centigrade, pulse 62 beats per minute and irregular, respiratory rate is 18 breaths per minute on the ventilator, and blood pressure 157/67. SaO2 is 91% on the ventilator, FiO2 100%. GENERAL: NAD, sedated, ventilator via tracheostomy. HEENT: Mucous membranes dry. No scleral icterus. Conjunctivae pink. NECK: JVD cannot be assessed due to morbid obesity. HEART: Irregular with a normal S1 and S2. No murmur, rub, or gallop appreciated, although the heart sounds are distant. LUNGS: Demonstrate clear breath sounds measured anteriorly. No rales, rhonchi or wheeze. ABDOMEN: Morbidly obese and nontender. No rebound or guarding. EXTREMITIES: Warm and dry with nonpitting lower extremity edema with evidence of venous stasis. NEUROLOGIC: Could not be comprehensively assessed due to the patient's sedation. FINAL IMPRESSION: 1. Acute decompensated hypoxemic and hypercapnic respiratory failure due to KEARA/OHS, healthcare associated pneumonia, and possible component of decompensated systolic heart failure. 2. Hemoptysis related to pneumonia and Coumadin coagulopathy. 3. Paroxysmal atrial flutter with tachybrady syndrome, status post pacemaker implantation - the patient is maintained in sinus rhythm with low dose amiodarone, sinus rhythm with frequent premature ventricular contractions noted on monitor, which is baseline for this patient. 4. Known cardiomyopathy, presumed nonischemic given chronicity. 5. Obesity hypoventilation syndrome with chronic CO2 retention. 6. Noncompliance. PLAN AND RECOMMENDATIONS: The patient's volume status is difficult to assess due to morbid obesity. He has received 1 dose of intravenous diuretics at this time. I suspect most of his pulmonary decompensation is related to retained secretions and OHS/KEARA. We will place the patient on once daily furosemide and attempt to maintain even volume status currently as he will be receiving multiple intravenous medications. Agree with reversal of anticoagulation given markedly supratherapeutic INR and hemoptysis on admission. Repeat INR this afternoon with additional vitamin K if necessary. Other cardiovascular medications including metoprolol and amiodarone will be continued as previously ordered. Antibiotics per critical care recommendations. We will continue to follow during hospitalization. RINKU
[2016-03-30] VITALS (16 sets, daily range): BP systolic 120–157; BP diastolic 56–67; PULSE 60–70; TEMP 36.7–37; O2SAT 92–99
[2016-03-30] MEDS: METOPROLOL TARTRATE 1 MG/ML VIAL IV. SCH ×5 (00:35→23:48)
[2016-03-30] MEDS: IPRATROPIUM BROMIDE HFA INHALER INH SCH ×4 (02:05→21:56)
[2016-03-30] MEDS: ALBUTEROL HFA 8 GM INHALER INH SCH ×4 (02:05→21:56)
[2016-03-30 05:22] LABS: BASO % 0.2 %; BASO ABS # 0.01 K/uL (0-0.2); COMPLETE YES; HEMATOCRIT 29.6 % (42-52); IG% 0.3 %; LYMPH % 6.1 %; LYMPH ABS # 0.39 K/uL (1.2-3.4); MEAN CELL VOLUME 87.8 fL (80-100); MEAN CORPUSCULAR HGB CONC 30.7 g/dl (32-36); MONO % 6.1 %; NEUT % 87.3 %; PLATELET COUNT 341 K/uL (130-400); RED BLOOD COUNT 3.37 M/uL (4.7-6.1); WHITE BLOOD COUNT 6.43 K/uL (4.8-10.8)
[2016-03-30 05:32] LABS: INR 1.3 (0.9-1.1); PROTHROMBIN TIME (PATIENT) 14.5 SECONDS (9.0-12.0)
[2016-03-30] MEDS: PIPERACILL/TAZOBAC IV 4.5 GM in DEXTROSE 5% 100ML IV SCH ×3 (05:45→22:19)
[2016-03-30 05:53] LABS: BUN/CREATININE RATIO 22.7 (10-20); CREATININE 1.3 mg/dl (0.60-1.40); MAGNESIUM 1.9 mg/dl (1.8-2.4); POTASSIUM 4.4 mmol/L (3.5-5.1)
[2016-03-30 06:28] LABS: CALCIUM 8.8 mg/dl (8.5-10.1)
--- NOTE | 2016-03-30 08:11 | DIAGNOSTIC IMAGING REPORT ---
SINGLE VIEW CHEST CLINICAL HISTORY: Hypoxia. FINDINGS: An AP, portable, upright chest radiograph is compared to chest x-ray and chest CT dated 03/29/2016. The examination is significantly degraded by portable technique, large body habitus, and patient rotation. A 2-lead cardiac pacemaker is unchanged in position and partially obscures the left lower chest. A tracheostomy is again noted. The heart is enlarged and there is atherosclerotic calcification of the thoracic aorta. Pulmonary vascular congestion persists. This is similar to yesterday. Chronic elevation of the right hemidiaphragm interstitial thickening are unchanged. There are small pleural effusions and bibasilar consolidation, left greater than right. No pneumothorax is seen. The skeletal structures are osteopenic. The bony thorax is grossly intact. IMPRESSION: 1. Cardiomegaly and cardiac pacemaker. Congestive failure persists. 2. There are small pleural effusions and bibasilar consolidation, left greater than right. This is overall similar in appearance to yesterday. Electronically signed by: Alex Pena M.D. 03/30/2016 8:10 AM
[2016-03-30] MEDS ORDERED: HEPARIN SOD 5000 UNIT/0.5 ML CARP SQ ONE (09:11)
[2016-03-30] MEDS: FUROSEMIDE INJ 40 MG in SYRINGE 0 ML IV SCH (09:23)
[2016-03-30] MEDS: PANTOprazole INJ 40 MG in SYRINGE 0 ML IV SCH (09:23)
--- NOTE | 2016-03-30 09:50 | Critical Care Progress Note ---
Critical Care Progress Note Date of Service Mar 30, 2016. Attending Dr Kaminski Subjective Patient stable overnight on mechanical ventilation. Apyrexial. Alert this morning and asking what went wrong this time. Mechanically ventilated but breathing over vent when awake. No sedation. Denies fevers, chills, chest pain, abdominal pain. Objective General Appearance: no apparent distress, obese Eyes: PEERL, EOMI ENT: mechanically ventilated with tracheostomy Neck: supple, large circumference neck, no JVD Respiratory/Chest: improved rales anteriorly from yesterday with increased breath sounds b/l, no wheezing, mechanically ventilated with tracheostomy. Rate 14, PEEP 8, Cardiovascular: regular rate, rhythm, no murmur (very quiet HS, no murmurs appreciated) Abdomen/GI: soft, obese, non tender, bowel sounds normal, no guarding, no rebound Genitourinary - Male: Davey cath freely draining. Penis retracted in testicular skin fold. Urethral meatus does not appear irritated on infected. Large swollen b/l testicles Extremities/Musculoskeletal: peripheral capillary refill < 2s, +++ stable chronic leg swelling b/l with venous stasis skin changes Neurologic/Psych: Alert, asking about what happened. 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 No facial droop Skin: no cellulitic changes seen anteriorly on legs, abdomen, chest and arms. Multiple areas of skin breakdown Assessment & Plan 60 yo male with acute on chronic hypoxic, hypercapnic respiratory failure with multiple co-morbidities listed above. Acute on chronic hypoxic respiratory failure - obesity hypoventilation s/p tracheostomy. Suspect cause for acute deterioration is more likely not having BiPAP at home rather than a new pneumonia. - pH normalized on ABG yesterday with rate of 18. Rate not 14 but breaths over this while awake, he appears alert today so won't repeat ABG - CPAP trial then may be transferred from ICU if stable later this afternoon - he likely needs rehab or correction placement but if refusing will have to make sure he has all equipment at home as both he and his have said they do not have the right equipment to attach to the tracheostomy at night - pseudomonas on sputum likely reflect trach colonization - routine inner tube changes and cleaning - Lasix 40mg IV this morning, will trend Cr given slight increase today Metabolic encephalopathy - CT head negative - Assumed hypercapnia related so will re-assess as his CO2 comes down Positive blood culture (04/12) - gram positive cocci - given the rest of the clinical picture and rapid improvement this likely reflects contamination. Currently in 04/12 BC. Will continue with Vancomycin and Zosyn until cultures results are back. Recent pseudomonas pneumonia - WBC not elevated, procalcitonin negative but extensive consolidation on CT - sputum likely reflects colonization at this point given already had 14 days antibiotics - Steroids stopped - Await final blood cultures as above Urinary retention - despite chronic davey catheter (easily blocked). BPH, also morbid obesity causing external compression. Renal function at baseline. - UA cath - uric acid crystals and small ketones but negative for infection or blood. - Re-insert Davey cath - Had right renal mass on CT February; was seen by Dr. Persaud with plan for outpatient f/u, unsure of status of this Idiopathic cardiomyopathy - Ejection Fraction 45-50% - Metoprolol IV 2.5 mg Q6H -> transition to PO when able to swallow - holding amiodarone while NPO, suspect he can eat later today so can restart this at that time. Hx Atrial flutter with RVR and Sick sinus syndrome s/p dual chamber pacemaker - holding amiodarone and metoprolol while NPO. Will treat with IV metoprolol as required. - Appreciate cardiology recommendations Skin - multiple areas of skin breakdown within skin folds. - consult wound care Hypothyroidism - TSH high, free T4 normal. Continue levothyroxine when more alert and can take pills. Give usual meds once off vent. Recommend repeat TSH in 4 weeks. Chronic normocytic anemia (anemia of chronic disease) - appears stable, monitor daily CBC VTE Prophylaxis (Hx DVT on chronic warfarin anticoagulation) - INR 1.3 this morning (>8 on admission, Vit K 10mg IV given in ER). Start heparin 5000 units Q8H SQ - Restart warfarin. GI Prophylaxis - Pantoprazole 40 mg IV Code - Full no cardioversion Disposition - continue in ICU due to mechanical ventilation. 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 His care was discussed on multidisciplinary rounds today and I have reviewed the VS, labs, meds, cultures and imaging. I discussed his care with Dr. Shearer and agree with findings and plan as documented in the note. Any exceptions or clarifications are listed here : Looks better today and is presently on trach mask 40%. Treating with antibiotics but suspect he is colonized with pseud. in the lung and that +BC may be a contaminant. Await urine culture and follow clinical course regarding abx management. His skin is improved compared to his last admission and I was present during the wound care team's eval and treatment today. Agree with diuresis. INR has dropped after vitamin k and coumadin is being resumed. RT has investigated the home device settings recommended by pulmonary service at last d/c but they tell me home care agency requires a new evaluation. So far, he is agreeing to residential care at discharge. Suggest trying him on the regimen and settings prescribed at last d/c here in the hospital if he continues to do well. I have ordered at diet and if he does well can change some of his meds to po. He may be ready for transfer to telemetry tomorrow. CCtime 40 min. Documented By: Dana Kaminski Data Medications: Current Inpatient Medications Medications (Trade) Dose Ordered Sig/Kelly Route Start Time Stop Time Status Last Admin Dose Admin Piperacillin Sod/ Tazobactam Sod (Consult) 1 ea UD PRN N/A 03/29/16 07:45 04/28/16 07:44 Vancomycin HCl 1 ea 1 ea UD PRN N/A 03/29/16 07:45 04/28/16 07:44 Pantoprazole Sodium/Syringe (Protonix Inj/ Syringe) 10 ml @ 5 mls/min DAILY IV 03/29/16 09:00 04/28/16 08:59 03/29/16 11:59 5 MLS/MIN Metoprolol Tartrate 2.5 mg 2.5 mg Q6H IV. 03/29/16 12:00 04/28/16 11:59 03/30/16 05:45 2.5 MG Acetaminophen/ Empty Bag (Ofirmev IV/ Empty Iv Bag 100ml) 65 ml @ 260 mls/hr Q6H PRN IV 03/29/16 07:30 04/28/16 07:29 Albuterol (Ventolin Hfa Inhaler) 4 puffs Q6H INH 03/29/16 07:30 04/28/16 07:29 03/30/16 07:38 4 PUFFS Ipratropium [place] 4 puffs 4 puffs Q6R INH 03/29/16 09:00 04/28/16 08:59 03/30/16 07:38 4 PUFFS Furosemide 40 mg/ Syringe 4 ml @ 4 mls/min DAILY IV 03/30/16 09:00 04/29/16 08:59 Piperacillin Sod/ Tazobactam Sod/ Dextrose (Zosyn Iv/D5 100ml) 120 ml @ 30 mls/hr Q8H IV 03/29/16 14:00 04/08/16 13:59 03/30/16 05:45 30 MLS/HR Heparin Sodium (Porcine) (Heparin Sq 5000 Unit/0.5ml) 5,000 unit Q8 SQ 03/30/16 14:00 04/29/16 13:59 UNV Heparin Sodium (Porcine) (Heparin Sq 5000 Unit/0.5ml) 5,000 unit 0911 ONCE SQ 03/30/16 09:11 03/30/16 09:12 UNV I & O: 24-Hour Column 03/30/16 08:00 Intake Total 1812 ml Output Total 3920 ml Balance -2108 ml Vital Signs: Date Time Temp Pulse Resp B/P Pulse Ox O2 Delivery O2 Flow Rate FiO2 03/30/16 05:59 61 16 135/56 98 Mechanical Ventilator 60 03/30/16 05:45 60 137/65 03/30/16 05:22 60 03/30/16 04:00 Mechanical Ventilator 03/30/16 04:00 60 03/30/16 03:59 36.9 60 14 139/64 96 Mechanical Ventilator 60 03/30/16 02:59 60 14 130/58 97 Mechanical Ventilator 60 03/30/16 02:13 60 03/30/16 01:59 60 14 133/59 96 Mechanical Ventilator 60 03/30/16 00:59 60 14 127/65 96 Mechanical Ventilator 60 03/30/16 00:35 60 131/60 03/30/16 00:34 62 17 96 Mechanical Ventilator 60 03/30/16 00:01 60 03/30/16 00:01 Mechanical Ventilator 03/29/16 23:59 36.8 60 14 131/60 97 Mechanical Ventilator 60 03/29/16 23:40 60 03/29/16 22:59 62 14 136/65 97 Mechanical Ventilator 60 03/29/16 21:59 61 15 133/62 96 Mechanical Ventilator 60 03/29/16 21:08 60 15 144/67 96 Mechanical Ventilator 60 03/29/16 20:00 Mechanical Ventilator 03/29/16 20:00 60 03/29/16 19:59 37.0 60 14 139/63 98 Mechanical Ventilator 60 03/29/16 19:15 60 03/29/16 19:07 60 151/68 03/29/16 18:00 60 123/99 98 Mechanical Ventilator 60 03/29/16 17:35 100 03/29/16 16:00 36.6 60 173/75 93 Mechanical Ventilator 60 03/29/16 16:00 95 Mechanical Ventilator 60 03/29/16 15:00 60 173/85 97 Mechanical Ventilator 60 03/29/16 14:00 65 157/75 93 Mechanical Ventilator 60 03/29/16 12:00 98 Mechanical Ventilator 60 03/29/16 12:00 60 03/29/16 12:00 36.4 60 163/80 98 Mechanical Ventilator 60 03/29/16 11:58 62 150/85 03/29/16 11:54 100 03/29/16 11:00 36.5 65 18 150/85 100 Mechanical Ventilator 60 03/29/16 10:00 58 18 164/70 94 Mechanical Ventilator 60 03/29/16 09:52 60 Laboratory Results: Last 24 Hours Test 03/29/16 09:40 03/29/16 11:21 03/29/16 11:47 03/29/16 12:05 Blood Gas Sample Site R Radial R Radial Bedside Blood Gas pH (LAB) 7.18 7.31 Bedside Blood Gas pCO2 (LAB) 99 mmHg 67 mmHg Bedside Blood Gas pO2 (LAB) 134 mmHg 53 mmHg Bedside Blood Gas HCO3 (LAB) 37 meq/L 34 meq/L Bedside Blood Gas Total CO2 > 40 mEq/l 36 mEq/l Bedside Blood Gas Base Excess (LAB) 8.0 meq/L 8.0 meq/L Bedside Blood Gas O2 Saturation 98.0 % 83.0 % [place] Test Pass Pass Oxygen Delivery Device Ventilator Ventilator Bedside Oxygen Rate (breaths/min) 12 18 Blood Gas Minute Ventilation 5.6 Bedside FiO2 100 % 60 % Blood Gas Tidal Volume 500 500 Blood Gas PEEP 5 8 Bedside Glucose 129 mg/dl Hemoglobin 9.2 g/dL Hematocrit 30.7 % Troponin I 0.122 ng/ml Procalcitonin 0.12 ng/mL Test 03/29/16 12:10 03/29/16 14:19 03/30/16 05:04 03/30/16 05:05 Urine Color YELLOW Urine Appearance CLOUDY Urine pH 5.0 Urine Specific [place] 1.006 Urine Protein NEG Urine Glucose (UA) NEG Urine Ketones TRACE Urine Occult Blood NEG Urine Nitrite NEG Urine Bilirubin NEG Urine Urobilinogen NEG Urine Leukocyte Esterase NEG Urine WBC (Auto) 1-5 /hpf Urine RBC (Auto) 0-4 /hpf Urine Hyaline Casts (Auto) 5-10 /lpf Urine Epithelial Cells (Auto) 20-30 /lpf Urine Bacteria (Auto) NEG Urine Crystals URIC ACID Urine Yeast (Auto) Blood Gas Sample Site R Radial Bedside Blood Gas pH (LAB) 7.41 Bedside Blood Gas pCO2 (LAB) 54 mmHg Bedside Blood Gas pO2 (LAB) 72 mmHg Bedside Blood Gas HCO3 (LAB) 34 meq/L Bedside Blood Gas Total CO2 36 mEq/l Bedside Blood Gas Base Excess (LAB) 9.0 meq/L Bedside Blood Gas O2 Saturation 94.0 % [place] Test Pass Oxygen Delivery Device Ventilator Bedside Oxygen Rate (breaths/min) 18 Blood Gas Minute Ventilation 8.3 Bedside FiO2 60 % Blood Gas Tidal Volume 500 Blood Gas PEEP 8 White Blood Count 6.43 K/uL Red Blood Count 3.37 M/uL Hemoglobin 9.1 g/dL Hematocrit 29.6 % Mean Corpuscular Volume 87.8 fL Mean Corpuscular Hemoglobin 27.0 pg Mean Corpuscular Hemoglobin Concent 30.7 g/dl Platelet Count 341 K/uL Mean Platelet Volume 9.0 fL Neutrophils (%) (Auto) 87.3 % Lymphocytes (%) (Auto) 6.1 % Monocytes (%) (Auto) 6.1 % Eosinophils (%) (Auto) 0.0 % Basophils (%) (Auto) 0.2 % Neutrophils # (Auto) 5.62 K/uL Lymphocytes # (Auto) 0.39 K/uL Monocytes # (Auto) 0.39 K/uL Eosinophils # (Auto) 0.00 K/uL Basophils # (Auto) 0.01 K/uL RDW Standard Deviation 51.9 fL RDW Coefficient of Variation 16.2 % Immature Granulocyte % (Auto) 0.3 % Immature Granulocyte # (Auto) 0.02 K/uL Nucleated RBC Absolute Count (auto) 0.04 K/uL Nucleated Red Blood Cells % 0.6 % Prothrombin Time 14.5 SECONDS Prothromb Time International Ratio 1.3 Sodium Level 142 mmol/L Potassium Level 4.4 mmol/L Chloride Level 99 mmol/L Carbon Dioxide Level 33 mmol/L Anion Gap 10.0 mmol/L Blood Urea Nitrogen 29 mg/dl Creatinine 1.30 mg/dl Est Creatinine Clear Calc Drug Dose 100.7 ml/min Estimated GFR () 69.2 Estimated GFR (Non- 59.7 BUN/Creatinine Ratio 22.7 Random Glucose 110 mg/dl Calcium Level 8.8 mg/dl Phosphorus Level 3.0 mg/dl Magnesium Level 1.9 mg/dl Random Vancomycin Level 19.9 mcg/ml
--- NOTE | 2016-03-30 11:31 | Pharmacy Progress Note ---
Pharmacy Antibiotic Consult Date of Service: Mar 30, 2016. Pharmacy Dosing Scope Pharmacy is consulted to initiate Vancomycin IV dosing therapy, order appropriate labs and adjust drug dose/frequency. Subjective The patient is a 60 year old male admitted on Mar 29, 2016 at 07:36 with acute on chronic hypoxic/hypercapnic respiratory failure. PMH is significant for obesity hypoventilation s/p tracheostomy, sick sinus syndrome s/p pacemaker, chronic anemia, hypothyroidism, Hx MRSA and pseudomonas (resistant to Levaquin, Cipro, and Azactam in past sputum cx), BPH with indwelling catheter. Objective Height (Feet): 5 Height (Inches): 10.00 Weight (Kilograms): 182.200 Lab Results (24hrs): Laboratory Tests Test 03/30/16 05:04 BUN/Creatinine Ratio 22.7 Blood Urea Nitrogen 29 mg/dl Creatinine 1.30 mg/dl White Blood Count 6.43 K/uL Red Blood Count 3.37 M/uL Hemoglobin 9.1 g/dL Hematocrit 29.6 % Mean Corpuscular Volume 87.8 fL Mean Corpuscular Hemoglobin 27.0 pg Mean Corpuscular Hemoglobin Concent 30.7 g/dl Platelet Count 341 K/uL Mean Platelet Volume 9.0 fL Neutrophils (%) (Auto) 87.3 % Lymphocytes (%) (Auto) 6.1 % Monocytes (%) (Auto) 6.1 % Eosinophils (%) (Auto) 0.0 % Basophils (%) (Auto) 0.2 % Neutrophils # (Auto) 5.62 K/uL Lymphocytes # (Auto) 0.39 K/uL Monocytes # (Auto) 0.39 K/uL Eosinophils # (Auto) 0.00 K/uL Basophils # (Auto) 0.01 K/uL Micro Results: Item Value Date Time Urine Culture Received 03/29/16 1210 Urine,Catheterized Pending Gram Stain - Final Resulted 03/29/16 1210 Sputum Trach. Tube Suction Probable pseudomonas species MRSA DNA Surveillance Screen - Final Complete 03/29/16 0830 Nasal Specimen Positive for MRSA by DNA Probe Blood Culture Received 03/29/16 0439 Blood Pending Blood Culture - Preliminary Resulted 03/29/16 0423 Blood Gram Positive Cocci Recent Pertinent Medications Recently treated with a 14-day course of Zosyn. Assessment & Plan Patient with a complicated medical history and multiple past admissions. Patient is s/p tracheostomy with poor compliance as an outpatient. Sputum cx positive for probable pseudomonas, but suspect that this is colonization in pt with chronic trach. Preliminary blood cx growing gram positive cocci in 1/2 cultures. VANCOMYCIN: * Patient has been treated with vancomycin during multiple past admissions. It is very difficult to predict patient's vancomycin needs d/t degree of obesity ( BMI 58 kg/m2). Pt appears to require far less vancomycin than expected, based on levels obtained in the past. Will dose conservatively at this time and monitor levels closely. * Loading dose (03/29/16): Vancomycin 2800 mg IV X 1 dose, then an additional 1000mg x1 * Random vanc level this mornin.9 mcg/mL * Will trial Vancomycin 2000mg (~11mg/kg) IV q24h, with frequent monitoring * Goal trough level estimate: between 15 - 20 mcg/mL for sepsis. * Trough level has been ordered for: 03/31/16 prior to the dose due at 1200 * this is after only 1 maintenance dose and does NOT represent steady-state Pharmacy will continue to follow and will adjust dose/frequency as necessary. Thank you
[2016-03-30] MEDS ORDERED: VANCOMYCIN INJ 2,000 MG in SODIUM CHLORIDE 0.9% 500ML 500 ML IV SCH (12:00)
--- NOTE | 2016-03-30 16:10 | Cardiology Follow-Up ---
Subjective General Date of Service: Mar 30, 2016. Pt evaluation today including: conversation w/ patient, conversation w/ family , physical exam, chart review, lab review, review of studies, conversation w/ regional sales consultant, review of inpatient medication list History of Present Illness The patient is a 60 year old male seen in follow up. Awake and alert today. Denies CP or SOB. No complaints at this time. Allergies Coded Allergies: Cefepime (Verified Allergy, Intermediate, RASH, 03/29/16) PER DR. LEVY Latex (Verified Allergy, Intermediate, DERMITITIS, 03/29/16) Aztreonam (Verified Allergy, Mild, RASH, 03/29/16) Social History Smoking Status: Current Some Day Smoker Hx Tobacco Use In Past Year?: No Hx Alcohol Use - Type And Amou: No Hx Substance Use - Type And Am: No Problem List Medical Problems: (1) Acute renal failure Status: Acute (2) Anemia Status: Acute (3) Anticoagulated on warfarin Status: Acute (4) Atrial fibrillation with RVR Status: Acute (5) Bradycardia Status: Acute (6) Bradycardia Status: Acute (7) Bradycardia Status: Acute (8) Hypotension Status: Acute (9) Hypoxia Status: Acute (10) Hypoxia Status: Acute (11) Morbid obesity Status: Acute (12) Pneumonia Status: Chronic (13) Pulmonary infiltrate in left lung on chest x-ray Status: Acute (14) Respiratory failure with hypoxia Status: Acute (15) Sepsis Status: Chronic (16) SOB (shortness of breath) Status: Acute (17) SVT (supraventricular tachycardia) Status: Acute (18) Weakness Status: Acute Review of Systems Respiratory: No cough, No dyspnea at rest, No hemoptysis, No shortness of breath, No wheezing Cardiac: + edema, No PND, No chest pain, No orthopnea, No palpitations Physical Exam Vital Signs Last Vital Signs Documentation Date Time Temp Pulse Resp B/P Pulse Ox O2 Delivery O2 Flow Rate FiO2 03/30/16 14:17 60 14 95 Mechanical Ventilator 30 03/30/16 12:09 137/59 03/30/16 08:00 37.0 03/29/16 07:52 15.0 Physical Exam Constitutional: General Apperance: obese Level of Distress: chronically ill Head: atraumatic ENMT: normal ENT inspection Neck: supple, trachea midline Lungs: Auscultation: no wheezing, no rales/crackles, no rhonchi, decreased breath sounds Cardiovascular: Heart Auscultation: RRR, normal S1, normal S2, no murmurs, no rubs, no gallops Peripheral Pulses: Radial Pulse: normal on the left, normal on the right Abdomen: Bowel Sounds: normal Inspection & Palpation: soft, non-distended, no tenderness, guarding & rebound Extremities: no cyanosis, edema (2-3+ B/L pedal edema with pretibial stasis changes) Neurologic: Cranial Nerves: grossly intact Assessment and Plan Assessment and Plan 1. Acute decompensated hypoxemic and hypercapnic respiratory failure. -resolved; clear mental status today 2. Chronic systolic heart failure. - patient appears fairly compensated, however, volume status is difficult to assess due to morbid obesity. 3. Paroxysmal atrial flutter with tachybrady syndrome, status post pacemaker implantation -maintained in sinus rhythm with low dose amiodarone -sinus rhythm with frequent premature ventricular contractions on telemetry , which is baseline for this patient. 4. Known cardiomyopathy, presumed nonischemic 5. Obesity hypoventilation syndrome with chronic CO2 retention. 6. Noncompliance. Plan/Recommendations: Continue daily furosemide 40mg IV. Repeat BMP in AM. Restart amiodarone 100mg and toprol XL 25mg daily. Dose coumadin for goal INR 2.0 - 3.0. Patient agreeable to [facility] placement. Laboratory Results Last 24 Hours Test 03/30/16 02:18 03/30/16 05:04 03/30/16 05:05 03/30/16 11:50 Bedside Glucose 110 mg/dl 98 mg/dl White Blood Count 6.43 K/uL Red Blood Count 3.37 M/uL Hemoglobin 9.1 g/dL Hematocrit 29.6 % Mean Corpuscular Volume 87.8 fL Mean Corpuscular Hemoglobin 27.0 pg Mean Corpuscular Hemoglobin Concent 30.7 g/dl Platelet Count 341 K/uL Mean Platelet Volume 9.0 fL Neutrophils (%) (Auto) 87.3 % Lymphocytes (%) (Auto) 6.1 % Monocytes (%) (Auto) 6.1 % Eosinophils (%) (Auto) 0.0 % Basophils (%) (Auto) 0.2 % Neutrophils # (Auto) 5.62 K/uL Lymphocytes # (Auto) 0.39 K/uL Monocytes # (Auto) 0.39 K/uL Eosinophils # (Auto) 0.00 K/uL Basophils # (Auto) 0.01 K/uL RDW Standard Deviation 51.9 fL RDW Coefficient of Variation 16.2 % Immature Granulocyte % (Auto) 0.3 % Immature Granulocyte # (Auto) 0.02 K/uL Nucleated RBC Absolute Count (auto) 0.04 K/uL Nucleated Red Blood Cells % 0.6 % Prothrombin Time 14.5 SECONDS Prothromb Time International Ratio 1.3 Sodium Level 142 mmol/L Potassium Level 4.4 mmol/L Chloride Level 99 mmol/L Carbon Dioxide Level 33 mmol/L Anion Gap 10.0 mmol/L Blood Urea Nitrogen 29 mg/dl Creatinine 1.30 mg/dl Est Creatinine Clear Calc Drug Dose 100.7 ml/min Estimated GFR () 69.2 Estimated GFR (Non- 59.7 BUN/Creatinine Ratio 22.7 Random Glucose 110 mg/dl Calcium Level 8.8 mg/dl Phosphorus Level 3.0 mg/dl Magnesium Level 1.9 mg/dl Random Vancomycin Level 19.9 mcg/ml
[2016-03-30] MEDS: WARFARIN SOD 5 MG TAB PO SCH (16:18)
[2016-03-30] MEDS: HEPARIN SOD 5000 UNIT/0.5 ML CARP SQ SCH ×2 (16:19→22:20)
--- NOTE | 2016-03-30 19:52 | Pulmonary Consultation ---
History General Date of Service: Mar 30, 2016. Stated Complaint: Respiratory Failure,Acute HPI The patient is a 60 year old male who presents to [facility] with complaints of Respiratory Failure,Acute. The patient's primary care provider is Brianna Torrez M.D.. 60-year-old male admitted to [facility] 03/10/2016 with productive cough and hypoxia. Patient has extensive PMHx with hypoxic hypercarbic respiratory failure s/p trach (#[id number]), atrial flutter/SSS on amiodarone and s.p pacemaker, chronic davey catheter, cellulitis, trach sputum + MRSA and pseudomonas aeruginosa. He has been admitted 4 times since October 2015. In short admissions notable for recurrent hypercarbic/hypoxic exacerbation obesity hypoventilation syndrome and ultimately he underwent placement of tracheostomy 01/2016. Since placement his PAP was discontinued in favor of 8LPM O2 RTC. Admission 11/06/15-11/19/15: atrial flutter, sepsis acute on chronic hypercarbic respiratory failure requiring intubation. Admission 11/29/15 - 12/06/15: ADAM/CKD III with hyperkalemia and dyspnea Admission 01/14/16 - 01/31/16: Hypoxic/hypercarbic respiratory failure + intubation with tracheostomy (excision of thyroglossal duct cyst) and duel chamber pacemaker implanted. Respiratory culture 01/26/16: +pseudomonas aeruginosa Admission 02/17/16-02/22/16 dyspnea with concern for dislodged trach - replaced by ENT with #8 Shiley - Cuffed /Pipe Sputum + oxacillin resistant staph aureus. Admission 03/10/16-03/20/16 admitted for hypoxia SaO2 80% on 8L, + MRSA screen , bronchoscopy on 03/12/16 grew pseudomonas. Patient was to go home on continuous ventilation to maintain SaO2 > 92% and IV Zosyn. Historian: patient, EMS Review of Systems Constitutional: reports: weakness Eyes: reports: no symptoms ENT: reports: no symptoms Cardiovascular: reports: no symptoms Respiratory: reports: no symptoms Gastrointestinal: reports: no symptoms Genitourinary - Male: reports: no symptoms Musculoskeletal: reports: no symptoms Integumentary: reports: no symptoms Neurologic: reports: no symptoms Psychiatric: reports: no symptoms Endocrine: no symptoms Hematologic / Lymphatic: no symptoms Allergic / Immunologic: no symptoms Past Medical History Past Medical History: Idiopathic cardiomyopathy - Ejection Fraction 45-50%. Morbid obesity Obesity hypoventilation Chronic respiratory failure on home O2 - s/p tracheostomy, refusal of BiPAP Hx DVT on chronic anticoagulation (warfarin) Hx atrial flutter Sick sinus syndrome s/p dual chamber pacemaker Chronic normocytic anemia (anemia of chronic disease) Hypothyroidism Hx MRSA and Pseudomonas (resistant to Levaquin, ciprofloxacin and aztreonam) from previous sputum trach washings. BPH with indwelling catheter Severe chronic lymphedema Past Medical History: anxiety, arthritis, congestive heart failure, coronary artery disease, lung disease, renal disease, other Past Surgical History: 1. Tracheostomy: 2. Tracheostomy with excision of thyroglossal duct cyst 02/2016 3. Pacemaker implantation - dual chamber: 01/1016 4. Ventral Hernia repair Family History Diabetes mellitus FATHER FH: heart disease MOTHER (CABG at age 68) Social History Hx Tobacco Use In Past Year?: No Smoking Status: Current Some Day Smoker Alcohol: never Marital status: Housing status: lives with family, assisted living Occupational Status: disabled Immunizations History of Influenza Vaccine: Yes Influenza Vaccine Date: Mar 19, 2014 History of Tetanus Vaccine?: Yes Tetanus Immunization Date: Nov 03, 2007 History of Pneumococcal: Yes Pneumococcal Date: Jan 21, 2003 History of MDRO History of MDRO: Yes Type of MDRO: MRSA Allergies Coded Allergies: Cefepime (Verified Allergy, Intermediate, RASH, 03/29/16) PER DR. LEVY Latex (Verified Allergy, Intermediate, DERMITITIS, 03/29/16) Aztreonam (Verified Allergy, Mild, RASH, 03/29/16) Current Medications Reported Home Medications Medications Dose Route/Sig Max Daily Dose Days Date Category Lactinex (Lactobacillus Acidophilus) Tab 2 Tab PO TID 14 03/20/16 Rx Pulmozyme (Dornase Darnell) 2.5 Ml Inha 2.5 Ml INH BID 10 03/20/16 Rx Duoneb (Ipratropium-Albuterol) 3 Ml Nebu 3 Ml INH QIDR PRN 30 03/20/16 Rx Warfarin Sodium 5 Mg Tab 1 Tab PO DAILY 90 03/10/16 Reported Oxygen Gas 5 Liter XXX CONTINOUS 01/14/16 Reported Lopressor (Metoprolol Tartrate) 25 Mg Tab 25 Mg PO DAILY 01/14/16 Reported Amiodarone Hcl 100 Mg Tab 100 Mg PO DAILY 01/14/16 Reported Synthroid (Levothyroxine Sodium) 100 Mcg Tab 100 Mcg PO DAILYBB 30 12/18/15 Rx Tamsulosin HCl 0.4 Mg Cap 0.4 Mg PO HS 30 12/06/15 Rx Tylenol (Acetaminophen) 325 Mg Tab 650 Mg PO Q4H PRN 30 12/05/15 Rx Docusate Sodium 100 Mg Cap 1 Cap PO BID PRN 7 11/29/15 Reported Protonix (Pantoprazole Sodium) 40 Mg Tab 40 Mg PO DAILY 11/29/15 Reported Mvi With Minerals (Multivitamins/Minerals) Tab 1 Tab PO DAILY 11/06/15 Reported Lipitor (Atorvastatin Calcium) 10 Mg Tab 10 Mg PO HS 11/06/15 Reported Proventil 0.083% 2.5MG/3ML (Albuterol Sulfate) Nebu 2.5 Mg INH Q4 PRN 11/06/15 Reported Physical Physical Exam Vital Signs: Date Time Temp Pulse Resp B/P Pulse Ox O2 Delivery O2 Flow Rate FiO2 03/30/16 18:01 61 20 96 Trach Collar 40 03/30/16 16:50 60 157/64 03/30/16 16:00 Mechanical Ventilator 03/30/16 16:00 30 03/30/16 16:00 60 14 157/64 98 Mechanical Ventilator 60 03/30/16 14:17 60 14 95 Mechanical Ventilator 30 03/30/16 14:15 40 03/30/16 12:09 60 137/59 03/30/16 12:00 Mechanical Ventilator 03/30/16 12:00 45 03/30/16 12:00 60 14 137/59 95 Mechanical Ventilator 60 03/30/16 11:50 60 03/30/16 10:00 60 16 146/67 98 Mechanical Ventilator 60 03/30/16 08:02 60 03/30/16 08:00 60 03/30/16 08:00 Mechanical Ventilator 60 03/30/16 08:00 Mechanical Ventilator 03/30/16 08:00 37.0 60 16 131/61 99 Mechanical Ventilator 60 03/30/16 05:59 61 16 135/56 98 Mechanical Ventilator 60 03/30/16 05:45 60 137/65 03/30/16 05:22 60 03/30/16 04:00 Mechanical Ventilator 03/30/16 04:00 60 12/20/16 03:59 36.9 60 14 139/64 96 Mechanical Ventilator 60 03/30/16 02:59 60 14 130/58 97 Mechanical Ventilator 60 03/30/16 02:13 60 03/30/16 01:59 60 14 133/59 96 Mechanical Ventilator 60 03/30/16 00:59 60 14 127/65 96 Mechanical Ventilator 60 03/30/16 00:35 60 131/60 03/30/16 00:34 62 17 96 Mechanical Ventilator 60 03/30/16 00:01 60 03/30/16 00:01 Mechanical Ventilator 03/29/16 23:59 36.8 60 14 131/60 97 Mechanical Ventilator 60 03/29/16 23:40 60 03/29/16 22:59 62 14 136/65 97 Mechanical Ventilator 60 03/29/16 21:59 61 15 133/62 96 Mechanical Ventilator 60 03/29/16 21:08 60 15 144/67 96 Mechanical Ventilator 60 03/29/16 20:00 Mechanical Ventilator 03/29/16 20:00 60 03/29/16 19:59 37.0 60 14 139/63 98 Mechanical Ventilator 60 General Appearance: WELL-APPEARING Head: NORMOCEPHALIC, ATRAUMATIC Eyes: PERRLA, NO DISCHARGE, EOMI, SCLERAE NORMAL ENT: NORMAL EAR EXAM, NORMAL NASAL EXAM, NORMAL MOUTH EXAM, NORMAL THROAT EXAM , other Neck: NORMAL RANGE OF MOTION, NO TENDERNESS, other (tracheostomy in place midline no signs of tissue breakdown) Respiratory: BREATH SOUNDS NORMAL, CLEAR TO AUSCULTATION Cardiovasular: REGULAR RATE/RHYTHM, NORMAL S1S2, NO M/G/R, NO MURMUR Abdomen: NON TENDER, NORMAL BOWEL SOUNDS, other (physical examination this patient is morbidly obese) Genitourinary - Male: EXTERNAL GENITALIA NORMAL Back: other (patient did not want to return for examination at this time) Upper Extremities: NO EDEMA Lower Extremities: NO EDEMA Pulses: carotid (R) (1+), carotid (L) (1+), dorsalis pedis (R) (1+), dorsalis pedis (L) (1+) Neuro: ALERT, ORIENTED x 3, NORMAL MOTOR EXAM, NORMAL SENSATION, NORMAL CEREBELLAR EXAM Reflexes: biceps (R) (1+), bicpes (L) (1+) Babinski Testing: right (downgoing), left (downgoing) Psychiatric: NORMAL AFFECT, NO SUICIDAL IDEATION Diagnostics Labs Results Past 24 Hours Test 03/30/16 02:18 03/30/16 05:04 03/30/16 05:05 03/30/16 11:50 Range/Units Bedside Glucose 110 98 70-99 mg/dl White Blood Count 6.43 4.8-10.8 K/uL Red Blood Count 3.37 4.7-6.1 M/uL Hemoglobin 9.1 14.0-18.0 g/dL Hematocrit 29.6 42-52 % Mean Corpuscular Volume 87.8 80-100 fL Mean Corpuscular Hemoglobin 27.0 25-34 pg Mean Corpuscular Hemoglobin Concent 30.7 32-36 g/dl Platelet Count 341 130-400 K/uL Mean Platelet Volume 9.0 7.4-10.4 fL Neutrophils (%) (Auto) 87.3 % Lymphocytes (%) (Auto) 6.1 % Monocytes (%) (Auto) 6.1 % Eosinophils (%) (Auto) 0.0 % Basophils (%) (Auto) 0.2 % Neutrophils # (Auto) 5.62 1.4-6.5 K/uL Lymphocytes # (Auto) 0.39 1.2-3.4 K/uL Monocytes # (Auto) 0.39 0.11-0.59 K/uL Eosinophils # (Auto) 0.00 0-0.5 K/uL Basophils # (Auto) 0.01 0-0.2 K/uL RDW Standard Deviation 51.9 36.4-46.3 fL RDW Coefficient of Variation 16.2 11.5-14.5 % Immature Granulocyte % (Auto) 0.3 % Immature Granulocyte # (Auto) 0.02 0.00-0.02 K/uL Nucleated RBC Absolute Count (auto) 0.04 0-0 K/uL Nucleated Red Blood Cells % 0.6 % Prothrombin Time 14.5 9.0-12.0 SECONDS Prothromb Time International Ratio 1.3 0.9-1.1 Sodium Level 142 136-145 mmol/L Potassium Level 4.4 3.5-5.1 mmol/L Chloride Level 99 98-107 mmol/L Carbon Dioxide Level 33 21-32 mmol/L Anion Gap 10.0 3-11 mmol/L Blood Urea Nitrogen 29 7-18 mg/dl Creatinine 1.30 0.60-1.40 mg/dl Est Creatinine Clear Calc Drug Dose 100.7 ml/min Estimated GFR () 69.2 Estimated GFR (Non- 59.7 BUN/Creatinine Ratio 22.7 10-20 Random Glucose 110 70-99 mg/dl Calcium Level 8.8 8.5-10.1 mg/dl Phosphorus Level 3.0 2.5-4.9 mg/dl Magnesium Level 1.9 1.8-2.4 mg/dl Random Vancomycin Level 19.9 mcg/ml Test 03/30/16 18:09 Range/Units Bedside Glucose 88 70-99 mg/dl Diagnostic Radiology Chest x-ray 01/21/1916 showing signs of pacer placement cardiomegaly and congestive heart failure and small pleural effusions bilaterally CT 03/29/2016 compared to 03/11/2016: Continuation of pleural effusion left greater than right and continued severe atelectasis of the left lower lobe most likely involving the lingula toward greater extent and notable bilateral crazy paving. EKG EKG 03/29/2016 showing intermittently paced rhythm with occasional PVCs Impression Assessment and Plan 60-year-old gentleman with obesity hypoventilation syndrome: 1 obesity hypoventilation: Agree with current ventilator management. I have spoken to Dr. Mehul carey without continue to monitor this patient has an outpatient for his chronic obesity hypoventilation/ventilatory needs. We'll continue to follow as this patient is in house. 2 atelectasis: Previous bronchoscopy was similar atelectasis. No signs of proximal mucous plugging and was not beneficial at that time for definitive airway clearance. If we're unable to clear our patient with aggressive ventilatory control and chest physiotherapy will possibly consider repeating bronchoscopy. I will also initiate dornase at this time for possible increase of his clearance.
--- NOTE | 2016-03-30 20:56 | Progress Note ---
Medicine Progress Note Date & Time of Visit: Mar 30, 2016 at 20:36. Subjective Pt was seen and examined Lying in bed on vent support awake and alert Denies any chest pain, palpitation Pt communicate with me by writing what he wants to say He refused to go to a skills nurse Objective Last 8 Hrs Date Time Temp Pulse Resp B/P Pulse Ox O2 Delivery O2 Flow Rate FiO2 03/30/16 18:01 61 20 96 Trach Collar 40 03/30/16 16:50 60 157/64 03/30/16 16:00 Mechanical Ventilator 03/30/16 16:00 30 03/30/16 16:00 60 14 157/64 98 Mechanical Ventilator 60 03/30/16 14:17 60 14 95 Mechanical Ventilator 30 03/30/16 14:15 40 Physical Exam: General- on vent support, obesity Head- atraumatic Eyes- PERRL, EOMI, anicteric ENT- trach Neck- supple, no JVD Lungs- Poor air entry Heart- regular rhythm; no murmur, S1/S2 present Abdomen- normal bowel sounds, soft, obesity Extremities- + edema, no calf tenderness Neuro- alert, oriented, PERRL, EOMI Skin- warm & dry Laboratory Results: Last 24 Hours Test 03/30/16 02:18 03/30/16 05:04 03/30/16 05:05 03/30/16 11:50 Bedside Glucose 110 mg/dl 98 mg/dl White Blood Count 6.43 K/uL Red Blood Count 3.37 M/uL Hemoglobin 9.1 g/dL Hematocrit 29.6 % Mean Corpuscular Volume 87.8 fL Mean Corpuscular Hemoglobin 27.0 pg Mean Corpuscular Hemoglobin Concent 30.7 g/dl Platelet Count 341 K/uL Mean Platelet Volume 9.0 fL Neutrophils (%) (Auto) 87.3 % Lymphocytes (%) (Auto) 6.1 % Monocytes (%) (Auto) 6.1 % Eosinophils (%) (Auto) 0.0 % Basophils (%) (Auto) 0.2 % Neutrophils # (Auto) 5.62 K/uL Lymphocytes # (Auto) 0.39 K/uL Monocytes # (Auto) 0.39 K/uL Eosinophils # (Auto) 0.00 K/uL Basophils # (Auto) 0.01 K/uL RDW Standard Deviation 51.9 fL RDW Coefficient of Variation 16.2 % Immature Granulocyte % (Auto) 0.3 % Immature Granulocyte # (Auto) 0.02 K/uL Nucleated RBC Absolute Count (auto) 0.04 K/uL Nucleated Red Blood Cells % 0.6 % Prothrombin Time 14.5 SECONDS Prothromb Time International Ratio 1.3 Sodium Level 142 mmol/L Potassium Level 4.4 mmol/L Chloride Level 99 mmol/L Carbon Dioxide Level 33 mmol/L Anion Gap 10.0 mmol/L Blood Urea Nitrogen 29 mg/dl Creatinine 1.30 mg/dl Est Creatinine Clear Calc Drug Dose 100.7 ml/min Estimated GFR () 69.2 Estimated GFR (Non- 59.7 BUN/Creatinine Ratio 22.7 Random Glucose 110 mg/dl Calcium Level 8.8 mg/dl Phosphorus Level 3.0 mg/dl Magnesium Level 1.9 mg/dl Random Vancomycin Level 19.9 mcg/ml Test 03/30/16 18:09 Bedside Glucose 88 mg/dl Assessment & Plan Acute on chronic hypoxic respiratory failure - obesity hypoventilation s/p tracheostomy Pt has not been using the BiPap at home because he is waiting for a piece Looks very comfortable on vent he refused to go to a [facility] facility - pseudomonas on sputum cx - Continue IV zosyn Metabolic encephalopathy - -CT head negative -Possible related to hypercapnia -Resolved Bacteremia - gram positive cocci on blood cx Afebrile, no WBC Was starting on Vanco Will follow up on cx Continue monitor cbc Urinary retention will monitor I/O - Right renal mass seen on CT February; -Follow with Dr. Persaud as an outpatient Idiopathic cardiomyopathy - Ejection Fraction 45-50% Continue lasix cardiology on board Stable Hx Atrial flutter with RVR and Sick sinus syndrome s/p dual chamber pacemaker - rate is controlled - Will resume amiodarone and metoprolol - continue coumadin - check INR in am Open skin ulcer. - wound care consulted Hypothyroidism - Continue levothyroxine Chronic normocytic anemia (anemia of chronic disease) - Hbg stable -monitor CBC VTE Prophylaxis - INR 1.3 this morning (>8 on admission, Vit K 10mg IV given in ER). Start heparin 5000 units Q8H SQ - Restart warfarin. GI Prophylaxis - Pantoprazole 40 mg IV Code - Full no cardioversion Disposition - will transfer to telemetry tomorrow if stable Current Inpatient Medications: Current Inpatient Medications Medications (Trade) Dose Ordered Sig/Kelly Route Start Time Stop Time Status Last Admin Dose Admin Piperacillin Sod/ Tazobactam Sod (Consult) 1 ea UD PRN N/A 03/29/16 07:45 04/28/16 07:44 Vancomycin HCl 1 ea 1 ea UD PRN N/A 03/29/16 07:45 04/28/16 07:44 Pantoprazole Sodium/Syringe (Protonix Inj/ Syringe) 10 ml @ 5 mls/min DAILY IV 03/29/16 09:00 04/28/16 08:59 03/30/16 09:23 5 MLS/MIN Metoprolol Tartrate 2.5 mg 2.5 mg Q6H IV. 03/29/16 12:00 04/28/16 11:59 03/30/16 16:50 2.5 MG Acetaminophen/ Empty Bag (Ofirmev IV/ Empty Iv Bag 100ml) 65 ml @ 260 mls/hr Q6H PRN IV 03/29/16 07:30 04/28/16 07:29 Albuterol (Ventolin Hfa Inhaler) 4 puffs Q6H INH 03/29/16 07:30 04/28/16 07:29 03/30/16 13:50 4 PUFFS Ipratropium Loring 4 puffs 4 puffs Q6R INH 03/29/16 09:00 04/28/16 08:59 03/30/16 13:50 4 PUFFS Furosemide 40 mg/ Syringe 4 ml @ 4 mls/min DAILY IV 03/30/16 09:00 04/29/16 08:59 03/30/16 09:23 4 MLS/MIN Piperacillin Sod/ Tazobactam Sod/ Dextrose (Zosyn Iv/D5 100ml) 120 ml @ 30 mls/hr Q8H IV 03/29/16 14:00 04/08/16 13:59 03/30/16 16:18 30 MLS/HR Heparin Sodium (Porcine) 5000 unit 5,000 unit Q8 SQ 03/30/16 16:00 04/29/16 15:59 03/30/16 16:19 5,000 UNIT Vancomycin HCl/ Sodium Chloride (Vancomycin Inj/ Nss 500ml) 540 ml @ 200 mls/hr Q24H IV 03/30/16 12:00 04/08/16 11:59 03/30/16 12:09 200 MLS/HR Warfarin Sodium (Coumadin Tab) 5 mg DAILY@16 PO 03/30/16 16:00 04/29/16 15:59 03/30/16 16:18 5 MG
[2016-03-31] VITALS (17 sets, daily range): BP systolic 127–156; BP diastolic 55–86; PULSE 58–63; TEMP 36.7–36.9; O2SAT 94–100
[2016-03-31] MEDS: IPRATROPIUM BROMIDE HFA INHALER INH SCH ×4 (02:39→20:32)
[2016-03-31] MEDS: ALBUTEROL HFA 8 GM INHALER INH SCH ×4 (02:39→20:32)
[2016-03-31] MEDS: PIPERACILL/TAZOBAC IV 4.5 GM in DEXTROSE 5% 100ML IV SCH (05:44)
[2016-03-31] MEDS: METOPROLOL TARTRATE 1 MG/ML VIAL IV. SCH (05:45)
[2016-03-31] MEDS: HEPARIN SOD 5000 UNIT/0.5 ML CARP SQ SCH ×3 (05:46→22:21)
[2016-03-31 06:11] LABS: BASO % 0.1 %; BASO ABS # 0.01 K/uL (0-0.2); EOS % 0.8 %; HEMATOCRIT 27.8 % (42-52); IG% 0.3 %; LYMPH % 16.2 %; LYMPH ABS # 1.22 K/uL (1.2-3.4); MEAN CELL VOLUME 87.1 fL (80-100); MEAN CORPUSCULAR HEMOGLOBIN 27.3 pg (25-34); MEAN CORPUSCULAR HGB CONC 31.3 g/dl (32-36); MEAN PLATELET VOLUME 8.6 fL (7.4-10.4); MONO % 8.5 %; NEUT % 74.1 %; PLATELET COUNT 318 K/uL (130-400); RED BLOOD COUNT 3.19 M/uL (4.7-6.1); WHITE BLOOD COUNT 7.54 K/uL (4.8-10.8)
[2016-03-31 06:34] LABS: BUN/CREATININE RATIO 23.4 (10-20); CALCIUM 8.7 mg/dl (8.5-10.1); CREATININE 1.2 mg/dl (0.60-1.40); MAGNESIUM 1.9 mg/dl (1.8-2.4); POTASSIUM 3.2 mmol/L (3.5-5.1)
[2016-03-31 06:47] LABS: PHOSPHORUS 1.1 mg/dl (2.5-4.9)
[2016-03-31 06:53] LABS: COMPLETE YES; LARGE PLATELETS 1+
[2016-03-31 07:00] LABS: INR 1.2 (0.9-1.1); PROTHROMBIN TIME (PATIENT) 13.2 SECONDS (9.0-12.0)
[2016-03-31] MEDS ORDERED: POTASSIUM PHOS 3 MMOL/1 ML INFUSION IV STA (07:13)
[2016-03-31] MEDS ORDERED: SODIUM CHLORIDE 0.9% IV ONE (07:30)
[2016-03-31] MEDS ORDERED: POTASSIUM PHOSPHATE IV ONE (07:30)
[2016-03-31] MEDS ORDERED: POTASSIUM PHOSPHATE INJ 30 MMOL in SODIUM CHLORIDE 0.9% 500ML 500 ML IV SCH (08:00)
--- NOTE | 2016-03-31 08:23 | Critical Care Progress Note ---
Critical Care Progress Note Date of Service Mar 31, 2016. Attending Dr. Huber Subjective Mr Gusman was on SIMV overnight rate 14, Tidal volume 500ml, PEEP 5, FiO2 30%. Failed CPAP trial yesterday as he becomes apneic. Alert and eating and drinking when seen this morning, breathing through trach collar. He does not wish to be on the ventilator during the daytime even if he naps. Objective General Appearance: no apparent distress, obese, coughing frequently with thick sputum coming out of tracheostomy Eyes: PERRL, EOMI ENT: breathing through tracheostomy with humidified FiO2 50% through trach collar, coughing frequently but refusing suction Neck: supple, large circumference neck, no appreciable JVD but difficult to assess, tracheostomy in place with thick sputum coughing up Respiratory/Chest: upper airway rales b/l, no wheezing, breathing through tracheostomy without ventilatory support Cardiovascular: regular rate, rhythm, no murmur (very quiet HS, no murmurs appreciated) Abdomen/GI: soft, obese, non tender, bowel sounds normal, no guarding, no rebound. Fitch cath in place Extremities/Musculoskeletal: peripheral capillary refill < 2s, +++ stable chronic leg swelling b/l with venous stasis skin changes Neurologic/Psych: Alert, does not want to be on ventilator during the day. 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 No facial droop Skin: no cellulitic changes seen anteriorly on legs, abdomen, chest and arms. Multiple areas of skin breakdown Assessment & Plan 60 yo male with acute on chronic hypoxic, hypercapnic respiratory failure due to obesity hypoventilation with failure of home treatment without BiPAP or triflow equipment for his trach since discharge on Mar 20. Multiple other co- morbidities as listed in consultation note. Acute on chronic hypoxic respiratory failure - obesity hypoventilation s/p tracheostomy. Suspect cause for acute deterioration is more likely not having BiPAP at home rather than a new pneumonia. - appreciate pulmonology and cardiology recommendations - off vent while alert but he appears to need rate settings while sleeping or napping. Will observe his naps today if he refuses to assess respiratory rate. - Lasix 40mg IV BID recommended by cardiology due to pulmonary edema, will trend Cr given slight increase today - Pulmozyme added by pulmonology Hypophosphatemia - suspect due to refeeding. Replacement today 30 mmol K Pos Metabolic encephalopathy - resolved with reduction in pCO2 Positive blood culture (04/12) - coagulase negative staph, will stop antibiotics given this is most likely a skin contaminant with normal procalcitonin and WBC Recent pseudomonas pneumonia - WBC not elevated, procalcitonin negative but extensive consolidation on CT - Antibiotics stop today. Steroids stopped 03/30 - Pseudomonas likely reflects colonization but of note is now resistant to Zosyn. Urinary retention - despite chronic Fitch catheter (easily blocked). BPH, also morbid obesity causing external compression. Renal function at baseline. - UA cath - uric acid crystals and small ketones but negative for infection or blood. - Re-inserted Fitch cath 03/30 - Had right renal mass on CT February; was seen by Dr. Persaud with plan for outpatient f/u, unsure of status of this Idiopathic cardiomyopathy - Ejection Fraction 45-50% - Metoprolol will switch IV to PO 25mg ER now alert and eating Hx Atrial flutter with RVR and Sick sinus syndrome s/p dual chamber pacemaker - Restart amiodarone and metoprolol PO - Appreciate cardiology recommendations - INR 1.2, restarted 5mg warfarin 03/30 Skin - multiple areas of skin breakdown within skin folds. - wound care seen - see note 03/30 for management Hypothyroidism - TSH high, free T4 normal. Restart 100 mcg levothyroxine. Recommend repeat TSH in 4 weeks. Chronic normocytic anemia (anemia of chronic disease) - appears stable, monitor daily CBC VTE Prophylaxis (Hx DVT on chronic warfarin anticoagulation) - INR 1.2 this morning (>8 on admission, Vit K 10mg IV given in ER). Continue heparin 5000 units Q8H SQ - Restarted warfarin 5mg 03/30 GI Prophylaxis - Pantoprazole 40 mg IV -> switch to PO Code - Full no cardioversion Disposition - continue in ICU due to need for rate setting at while sleeping. Assess for care home and [facility] facility for discharge Resident Physician Supervision Note: I was present with Dr. Shearer during the history and exam. I discussed the case with the resident and agree with the findings and plan as documented in the note. Any exceptions or clarifications are listed here: None. In addition, the patient requires nocturnal ventilatory support for multifactorial hypercapnic respiratory failure, also with persistent LLL atelectasis Has a left pleural effusion as well, not impressive by amount. I don't believe drainage would be beneficial. Will try patient on Bi-level support overnight with a back up rate and see if he tolerates it, if he has significant central apnea Documented By: Kenneth Huber MD Critical care time spent with the patient and the family greater than 35 minutes Data Medications: Current Inpatient Medications Medications (Trade) Dose Ordered Sig/Kelly Route Start Time Stop Time Status Last Admin Dose Admin Piperacillin Sod/ Tazobactam Sod (Consult) 1 ea UD PRN N/A 03/29/16 07:45 04/28/16 07:44 Vancomycin HCl 1 ea 1 ea UD PRN N/A 03/29/16 07:45 04/28/16 07:44 Pantoprazole Sodium/Syringe (Protonix Inj/ Syringe) 10 ml @ 5 mls/min DAILY IV 03/29/16 09:00 04/28/16 08:59 03/30/16 09:23 5 MLS/MIN Metoprolol Tartrate 2.5 mg 2.5 mg Q6H IV. 03/29/16 12:00 04/28/16 11:59 03/31/16 05:45 2.5 MG Acetaminophen/ Empty Bag (Ofirmev IV/ Empty Iv Bag 100ml) 65 ml @ 260 mls/hr Q6H PRN IV 03/29/16 07:30 04/28/16 07:29 Albuterol (Ventolin Hfa Inhaler) 4 puffs Q6H INH 03/29/16 07:30 04/28/16 07:29 03/31/16 07:45 4 PUFFS Ipratropium [place] 4 puffs 4 puffs Q6R INH 03/29/16 09:00 04/28/16 08:59 03/31/16 07:45 4 PUFFS Furosemide 40 mg/ Syringe 4 ml @ 4 mls/min DAILY IV 03/30/16 09:00 04/29/16 08:59 03/30/16 09:23 4 MLS/MIN Piperacillin Sod/ Tazobactam Sod/ Dextrose (Zosyn Iv/D5 100ml) 120 ml @ 30 mls/hr Q8H IV 03/29/16 14:00 04/08/16 13:59 03/31/16 05:44 30 MLS/HR Heparin Sodium (Porcine) 5000 unit 5,000 unit Q8 SQ 03/30/16 16:00 04/29/16 15:59 03/31/16 05:46 5,000 UNIT Vancomycin HCl/ Sodium Chloride (Vancomycin Inj/ Nss 500ml) 540 ml @ 200 mls/hr Q24H IV 03/30/16 12:00 04/08/16 11:59 03/30/16 12:09 200 MLS/HR Warfarin Sodium 5 mg 5 mg DAILY@16 PO 03/30/16 16:00 04/29/16 15:59 03/30/16 16:18 5 MG Potassium Phosphate/Sodium Chloride (Potassium Phosphate Inj/Nss 500ml) 510 ml @ 88 mls/hr TODAY@0800 IV 03/31/16 08:00 03/31/16 13:48 I & O: 24-Hour Column 03/31/16 08:00 Intake Total 1143 ml Output Total 1875 ml Balance -732 ml Vital Signs: Date Time Temp Pulse Resp B/P Pulse Ox O2 Delivery O2 Flow Rate FiO2 03/31/16 07:48 61 17 96 Mechanical Ventilator 30 03/31/16 06:05 30 03/31/16 05:59 61 23 143/61 95 Mechanical Ventilator 30 03/31/16 05:45 61 140/60 03/31/16 04:00 Mechanical Ventilator 30 03/31/16 04:00 30 03/31/16 03:59 36.9 60 14 132/56 100 Mechanical Ventilator 30 03/31/16 02:35 30 03/31/16 01:59 63 22 147/86 94 Mechanical Ventilator 30 03/31/16 00:00 Mechanical Ventilator 30 03/31/16 00:00 30 03/30/16 23:59 36.7 61 17 95 Mechanical Ventilator 30 03/30/16 23:49 60 19 132/62 95 03/30/16 23:48 60 132/62 03/30/16 23:27 30 03/30/16 21:59 61 14 120/59 92 Mechanical Ventilator 30 03/30/16 21:56 30 03/30/16 20:00 Trach Collar 40 03/30/16 19:59 36.7 70 24 95 Trach Collar 40 03/30/16 18:01 61 20 96 Trach Collar 40 03/30/16 16:50 60 157/64 03/30/16 16:00 Mechanical Ventilator 03/30/16 16:00 30 03/30/16 16:00 60 14 157/64 98 Mechanical Ventilator 60 03/30/16 14:17 60 14 95 Mechanical Ventilator 30 03/30/16 14:15 40 03/30/16 12:09 60 137/59 03/30/16 12:00 Mechanical Ventilator 03/30/16 12:00 45 03/30/16 12:00 60 14 137/59 95 Mechanical Ventilator 60 03/30/16 11:50 60 03/30/16 10:00 60 16 146/67 98 Mechanical Ventilator 60 Laboratory Results: Last 24 Hours Test 03/30/16 11:50 03/30/16 18:09 03/31/16 05:41 03/31/16 06:35 Bedside Glucose 98 mg/dl 88 mg/dl White Blood Count 7.54 K/uL Red Blood Count 3.19 M/uL Hemoglobin 8.7 g/dL Hematocrit 27.8 % Mean Corpuscular Volume 87.1 fL Mean Corpuscular Hemoglobin 27.3 pg Mean Corpuscular Hemoglobin Concent 31.3 g/dl Platelet Count 318 K/uL Mean Platelet Volume 8.6 fL Neutrophils (%) (Auto) 74.1 % Lymphocytes (%) (Auto) 16.2 % Monocytes (%) (Auto) 8.5 % Eosinophils (%) (Auto) 0.8 % Basophils (%) (Auto) 0.1 % Neutrophils # (Auto) 5.59 K/uL Lymphocytes # (Auto) 1.22 K/uL Monocytes # (Auto) 0.64 K/uL Eosinophils # (Auto) 0.06 K/uL Basophils # (Auto) 0.01 K/uL RDW Standard Deviation 52.6 fL RDW Coefficient of Variation 16.8 % Immature Granulocyte % (Auto) 0.3 % Immature Granulocyte # (Auto) 0.02 K/uL Large Platelets 1+ Sodium Level 142 mmol/L Potassium Level 3.2 mmol/L Chloride Level 100 mmol/L Carbon Dioxide Level 36 mmol/L Anion Gap 6.0 mmol/L Blood Urea Nitrogen 28 mg/dl Creatinine 1.20 mg/dl Est Creatinine Clear Calc Drug Dose 108.4 ml/min Estimated GFR () 76.3 Estimated GFR (Non- 65.8 BUN/Creatinine Ratio 23.4 Random Glucose 79 mg/dl Calcium Level 8.7 mg/dl Phosphorus Level 1.1 mg/dl Magnesium Level 1.9 mg/dl Prothrombin Time 13.2 SECONDS Prothromb Time International Ratio 1.2
[2016-03-31] MEDS: FUROSEMIDE INJ 40 MG in SYRINGE 0 ML IV SCH ×2 (08:49→21:12)
[2016-03-31] MEDS: PANTOprazole INJ 40 MG in SYRINGE 0 ML IV SCH (08:50)
--- NOTE | 2016-03-31 10:09 | Cardiology Follow-Up ---
Subjective General Date of Service: Mar 31, 2016. Pt evaluation today including: conversation w/ patient, physical exam, chart review, lab review, review of studies, conversation w/ loss control consultant, review of inpatient medication list History of Present Illness The patient is a 60 year old male seen in follow up. Feeling well today. Increased secretions from tracheostomy. No CP. PVC's on telemetry. Edema unchanged. Allergies Coded Allergies: Cefepime (Verified Allergy, Intermediate, RASH, 03/29/16) PER DR. LEVY Latex (Verified Allergy, Intermediate, DERMITITIS, 03/29/16) Aztreonam (Verified Allergy, Mild, RASH, 03/29/16) Social History Smoking Status: Current Some Day Smoker Hx Tobacco Use In Past Year?: No Hx Alcohol Use - Type And Amou: No Hx Substance Use - Type And Am: No Problem List Medical Problems: (1) Acute renal failure Status: Acute (2) Anemia Status: Acute (3) Anticoagulated on warfarin Status: Acute (4) Atrial fibrillation with RVR Status: Acute (5) Bradycardia Status: Acute (6) Bradycardia Status: Acute (7) Bradycardia Status: Acute (8) Hypotension Status: Acute (9) Hypoxia Status: Acute (10) Hypoxia Status: Acute (11) Morbid obesity Status: Acute (12) Pneumonia Status: Chronic (13) Pulmonary infiltrate in left lung on chest x-ray Status: Acute (14) Respiratory failure with hypoxia Status: Acute (15) Sepsis Status: Chronic (16) SOB (shortness of breath) Status: Acute (17) SVT (supraventricular tachycardia) Status: Acute (18) Weakness Status: Acute Review of Systems Respiratory: + cough, + dyspnea on exertion, No dyspnea at rest, No hemoptysis , No shortness of breath, No sputum, No wheezing Cardiac: + edema, No PND, No chest pain, No claudication, No orthopnea, No palpitations Physical Exam Vital Signs Last Vital Signs Documentation Date Time Temp Pulse Resp B/P Pulse Ox O2 Delivery O2 Flow Rate FiO2 03/31/16 07:48 61 17 96 Mechanical Ventilator 30 03/31/16 05:59 143/61 03/31/16 03:59 36.9 03/29/16 07:52 15.0 Physical Exam Constitutional: General Apperance: obese Level of Distress: chronically ill Head: atraumatic ENMT: normal ENT inspection, pertinent finding (tracheostomy) Neck: supple, trachea midline Lungs: Auscultation: no wheezing, no rales/crackles, no rhonchi, decreased breath sounds Cardiovascular: Heart Auscultation: RRR, normal S1, normal S2, no murmurs, no rubs, no gallops Peripheral Pulses: Radial Pulse: normal on the left, normal on the right Abdomen: Bowel Sounds: normal Inspection & Palpation: soft, non-distended, no tenderness, guarding & rebound Extremities: no cyanosis, edema (2-3+ B/L pedal edema with pretibial stasis changes) Neurologic: Cranial Nerves: grossly intact Assessment and Plan Assessment and Plan 1. Acute decompensated hypoxemic and hypercapnic respiratory failure. -resolved; clear mental status today 2. Chronic systolic heart failure. - patient appears fairly compensated, however, volume status is difficult to assess due to morbid obesity. 3. Paroxysmal atrial flutter with tachybrady syndrome, status post pacemaker implantation -maintained in sinus rhythm with low dose amiodarone -sinus rhythm with frequent premature ventricular contractions on telemetry -INR supratherapeutic on admission, however, subtherapeutic since receiving Vit K. 4. Known cardiomyopathy, presumed nonischemic 5. Obesity hypoventilation syndrome with chronic CO2 retention. 6. Noncompliance. Plan/Recommendations: Increase lasix to 40mg BID. Repeat BMP in AM. Continue amiodarone 100mg and toprol XL 25mg daily. Dose coumadin for goal INR 2.0 - 3.0. Patient agreeable to [facility] placement. Laboratory Results Last 24 Hours Test 03/30/16 11:50 03/30/16 18:09 03/31/16 05:41 03/31/16 06:35 Bedside Glucose 98 mg/dl 88 mg/dl White Blood Count 7.54 K/uL Red Blood Count 3.19 M/uL Hemoglobin 8.7 g/dL Hematocrit 27.8 % Mean Corpuscular Volume 87.1 fL Mean Corpuscular Hemoglobin 27.3 pg Mean Corpuscular Hemoglobin Concent 31.3 g/dl Platelet Count 318 K/uL Mean Platelet Volume 8.6 fL Neutrophils (%) (Auto) 74.1 % Lymphocytes (%) (Auto) 16.2 % Monocytes (%) (Auto) 8.5 % Eosinophils (%) (Auto) 0.8 % Basophils (%) (Auto) 0.1 % Neutrophils # (Auto) 5.59 K/uL Lymphocytes # (Auto) 1.22 K/uL Monocytes # (Auto) 0.64 K/uL Eosinophils # (Auto) 0.06 K/uL Basophils # (Auto) 0.01 K/uL RDW Standard Deviation 52.6 fL RDW Coefficient of Variation 16.8 % Immature Granulocyte % (Auto) 0.3 % Immature Granulocyte # (Auto) 0.02 K/uL Large Platelets 1+ Sodium Level 142 mmol/L Potassium Level 3.2 mmol/L Chloride Level 100 mmol/L Carbon Dioxide Level 36 mmol/L Anion Gap 6.0 mmol/L Blood Urea Nitrogen 28 mg/dl Creatinine 1.20 mg/dl Est Creatinine Clear Calc Drug Dose 108.4 ml/min Estimated GFR () 76.3 Estimated GFR (Non- 65.8 BUN/Creatinine Ratio 23.4 Random Glucose 79 mg/dl Calcium Level 8.7 mg/dl Phosphorus Level 1.1 mg/dl Magnesium Level 1.9 mg/dl Prothrombin Time 13.2 SECONDS Prothromb Time International Ratio 1.2
[2016-03-31] MEDS ORDERED: LEVOTHYROXINE 100 MCG TAB PO ONE (10:53)
[2016-03-31] MEDS ORDERED: AMIODARONE 200 MG TAB PO ONE (10:56)
[2016-03-31] MEDS ORDERED: DOCUSATE SODIUM 100 MG CAP PO PRN (11:00)
[2016-03-31] MEDS ORDERED: METOPROLOL SUCC 25MG EXT REL TAB PO ONE (12:00)
[2016-03-31] MEDS: WARFARIN SOD 5 MG TAB PO SCH (16:16)
[2016-03-31] MEDS: ATORVASTATIN 10 MG TAB PO SCH (21:12)
[2016-03-31] MEDS: TAMSULOSIN HCL 0.4 MG CAP PO SCH (21:12)
--- NOTE | 2016-03-31 22:00 | Progress Note ---
Medicine Progress Note Date & Time of Visit: Mar 31, 2016 at 21:49. Subjective Pt was seen and examined continue on vent suppor Pt said that he feels a little better he continue to have a lot of secretion denies any chest pain, palpitation, dizziness Objective Last 8 Hrs Date Time Temp Pulse Resp B/P Pulse Ox O2 Delivery O2 Flow Rate FiO2 03/31/16 20:44 60 98 50 03/31/16 20:32 60 20 97 Trach Collar 50 03/31/16 20:00 Trach Collar 03/31/16 19:59 36.8 58 23 128/55 97 Trach Collar 50 03/31/16 18:00 60 22 127/58 97 Trach Collar 30 03/31/16 16:00 96 Trach Collar 50 03/31/16 16:00 36.8 60 26 131/63 96 Trach Collar 50 03/31/16 14:26 60 17 96 Trach Collar 50 03/31/16 14:00 61 24 139/55 95 Trach Collar 50 Physical Exam: General- on vent support, obesity Head- atraumatic Eyes- PERRL, EOMI, anicteric ENT- trach Neck- supple, no JVD Lungs- Poor air entry Heart- regular rhythm; no murmur, S1/S2 present Abdomen- normal bowel sounds, soft, obesity Extremities- + edema, no calf tenderness Neuro- alert, oriented, PERRL, EOMI Skin- warm & dry Laboratory Results: Last 24 Hours Test 03/31/16 05:41 03/31/16 06:35 White Blood Count 7.54 K/uL Red Blood Count 3.19 M/uL Hemoglobin 8.7 g/dL Hematocrit 27.8 % Mean Corpuscular Volume 87.1 fL Mean Corpuscular Hemoglobin 27.3 pg Mean Corpuscular Hemoglobin Concent 31.3 g/dl Platelet Count 318 K/uL Mean Platelet Volume 8.6 fL Neutrophils (%) (Auto) 74.1 % Lymphocytes (%) (Auto) 16.2 % Monocytes (%) (Auto) 8.5 % Eosinophils (%) (Auto) 0.8 % Basophils (%) (Auto) 0.1 % Neutrophils # (Auto) 5.59 K/uL Lymphocytes # (Auto) 1.22 K/uL Monocytes # (Auto) 0.64 K/uL Eosinophils # (Auto) 0.06 K/uL Basophils # (Auto) 0.01 K/uL RDW Standard Deviation 52.6 fL RDW Coefficient of Variation 16.8 % Immature Granulocyte % (Auto) 0.3 % Immature Granulocyte # (Auto) 0.02 K/uL Large Platelets 1+ Sodium Level 142 mmol/L Potassium Level 3.2 mmol/L Chloride Level 100 mmol/L Carbon Dioxide Level 36 mmol/L Anion Gap 6.0 mmol/L Blood Urea Nitrogen 28 mg/dl Creatinine 1.20 mg/dl Est Creatinine Clear Calc Drug Dose 108.4 ml/min Estimated GFR () 76.3 Estimated GFR (Non- 65.8 BUN/Creatinine Ratio 23.4 Random Glucose 79 mg/dl Calcium Level 8.7 mg/dl Phosphorus Level 1.1 mg/dl Magnesium Level 1.9 mg/dl Prothrombin Time 13.2 SECONDS Prothromb Time International Ratio 1.2 Assessment & Plan Acute on chronic hypoxic respiratory failure - obesity hypoventilation s/p tracheostomy Pt has not been using the BiPap at home because he is waiting for a piece Looks very comfortable on vent -failed CPAP trial yesterday - pseudomonas on sputum cx possible colonization -Procalcitonin normal Zosyn was d/c by the ICU team Pulmonology consulted started pt on pulmozyme Metabolic encephalopathy - -CT head negative -Possible related to hypercapnia -Resolved Bacteremia - gram positive cocci on blood cx Possible contaamination Afebrile, no WBC, procalcitonin normal d/C vanco Continue monitor cbc Urinary retention will monitor I/O - Right renal mass seen on CT February; -Follow with Dr. Persaud as an outpatient Idiopathic cardiomyopathy - Ejection Fraction 45-50% Continue lasix cardiology on board Stable Hx Atrial flutter with RVR and Sick sinus syndrome s/p dual chamber pacemaker - rate is controlled - Will resume amiodarone and metoprolol - continue coumadin - check INR in am Open skin ulcer. - wound care consulted Hypothyroidism - Continue levothyroxine Chronic normocytic anemia (anemia of chronic disease) - Hbg stable -monitor CBC VTE Prophylaxis - INR 1.2 this morning (>8 on admission, Vit K 10mg IV given in ER). Start heparin 5000 units Q8H SQ - continue warfarin. GI Prophylaxis - Pantoprazole 40 mg IV Code - Full no cardioversion Disposition Conitnue monitor in the ICU Current Inpatient Medications: Current Inpatient Medications Medications (Trade) Dose Ordered Sig/Kelly Route Start Time Stop Time Status Last Admin Dose Admin Acetaminophen/ Empty Bag (Ofirmev IV/ Empty Iv Bag 100ml) 65 ml @ 260 mls/hr Q6H PRN IV 03/29/16 07:30 04/28/16 07:29 Albuterol (Ventolin Hfa Inhaler) 4 puffs Q6H INH 03/29/16 07:30 04/28/16 07:29 03/31/16 20:32 4 PUFFS Ipratropium [place] (Atrovent Hfa Inhaler) 4 puffs Q6R INH 03/29/16 09:00 04/28/16 08:59 03/31/16 20:32 4 PUFFS Heparin Sodium (Porcine) (Heparin Sq 5000 Unit/0.5ml) 5,000 unit Q8 SQ 03/30/16 16:00 04/29/16 15:59 03/31/16 14:15 5,000 UNIT Warfarin Sodium 5 mg 5 mg DAILY@16 PO 03/30/16 16:00 04/29/16 15:59 03/31/16 16:16 5 MG Furosemide/Syringe (Lasix Inj/ Syringe) 4 ml @ 4 mls/min BID IV 03/31/16 21:00 04/30/16 20:59 03/31/16 21:12 4 MLS/MIN Pantoprazole Sodium (Protonix Tab) 40 mg QAM PO 04/01/16 09:00 05/01/16 08:59 Atorvastatin Calcium (Lipitor Tab) 10 mg HS PO 03/31/16 21:00 04/30/16 20:59 03/31/16 21:12 10 MG Docusate Sodium (coLACE CAP) 100 mg BID PRN PO 03/31/16 11:00 04/30/16 10:59 Levothyroxine Sodium (Synthroid Tab) 100 mcg DAILYBB PO 04/01/16 06:00 05/01/16 05:59 Multivitamins/ Minerals (Multivitamin W/ Minerals Tab) 1 tab DAILY PO 04/01/16 09:00 05/01/16 08:59 Tamsulosin HCl (Flomax Cap) 0.4 mg HS PO 03/31/16 21:00 04/30/16 20:59 03/31/16 21:12 0.4 MG Amiodarone HCl (Cordarone Tab) 100 mg QAM PO 04/01/16 09:00 05/01/16 08:59 Metoprolol Succinate (Toprol Xl Tab) 25 mg QAM PO 04/01/16 09:00 05/01/16 08:59
[2016-04-01] VITALS (15 sets, daily range): BP systolic 105–151; BP diastolic 54–80; PULSE 60–91; TEMP 36.8–37.3; O2SAT 92–99
[2016-04-01] MEDS: IPRATROPIUM BROMIDE HFA INHALER INH SCH ×4 (02:32→20:43)
[2016-04-01] MEDS: ALBUTEROL HFA 8 GM INHALER INH SCH ×4 (02:32→20:43)
[2016-04-01] MEDS: LEVOTHYROXINE 100 MCG TAB PO SCH (05:53)
[2016-04-01] MEDS: HEPARIN SOD 5000 UNIT/0.5 ML CARP SQ SCH ×3 (05:53→21:21)
[2016-04-01 06:01] LABS: BASO % 0.3 %; BASO ABS # 0.02 K/uL (0-0.2); COMPLETE YES; EOS % 5.6 %; HEMATOCRIT 30.7 % (42-52); IG% 0.5 %; LYMPH ABS # 1.33 K/uL (1.2-3.4); MEAN CELL VOLUME 87.5 fL (80-100); MEAN CORPUSCULAR HEMOGLOBIN 26.8 pg (25-34); MEAN CORPUSCULAR HGB CONC 30.6 g/dl (32-36); MEAN PLATELET VOLUME 8.2 fL (7.4-10.4); MONO % 8.8 %; NEUT % 62.8 %; PLATELET COUNT 288 K/uL (130-400); RED BLOOD COUNT 3.51 M/uL (4.7-6.1); WHITE BLOOD COUNT 6.05 K/uL (4.8-10.8)
[2016-04-01 06:14] LABS: INR 1.4 (0.9-1.1); PROTHROMBIN TIME (PATIENT) 14.9 SECONDS (9.0-12.0)
[2016-04-01 06:28] LABS: BUN/CREATININE RATIO 21.7 (10-20); CALCIUM 8.7 mg/dl (8.5-10.1); CREATININE 1.1 mg/dl (0.60-1.40); POTASSIUM 3.2 mmol/L (3.5-5.1)
[2016-04-01 06:35] LABS: ALB/GLOB RATIO 0.5 (0.9-2); PHOSPHORUS 2.5 mg/dl (2.5-4.9)
[2016-04-01] MEDS: AMIODARONE 200 MG TAB PO SCH (09:41)
[2016-04-01] MEDS: PANTOprazole SOD 40 MG TAB PO SCH (09:42)
[2016-04-01] MEDS: METOPROLOL SUCC 25MG EXT REL TAB PO SCH (09:42)
[2016-04-01] MEDS: CEROVITE ADV FORMULA TAB PO SCH (09:42)
[2016-04-01] MEDS: FUROSEMIDE INJ 40 MG in SYRINGE 0 ML IV SCH ×2 (09:44→20:57)
[2016-04-01] MEDS ORDERED: POTASSIUM CHLORIDE PWD 20 MEQ PACK PO ONE (09:45)
[2016-04-01] MEDS ORDERED: POT PHOSPHATE MONOBASIC W/ SOD TAB PO ONE (09:45)
--- NOTE | 2016-04-01 10:26 | Critical Care Progress Note ---
Critical Care Progress Note Date of Service This Report was prepared by Resident Physician Dr Jason Shearer. Please see Dr Huber's (attending health information tech) addendum for full assessment and plan. Apr 01, 2016. Attending Dr. Huber Subjective Mrs Gusman was on BiPAP overnight with 14/6 rescue rate of 8. As per nursing no known apneic events overnight. Resp rate 19-24 charted overnight. Alert this morning. Able to communicate with shaking, nodding head and writing. "I am good ". Denies shortness of breath, chest or abdominal pain. Continues to have thick secretions requiring suctioning. Patient discussed on ICU rounds. He will be a difficult placement given weight, large amount of nursing care needed, tracheostomy and BiPAP at night. Needs PT and OT evaluation for placement. Objective General Appearance: no apparent distress, obese, coughing frequently with thick sputum coming out of tracheostomy requiring suction Eyes: PERRL, EOMI ENT: breathing through tracheostomy with humidified FiO2 50% through trach collar, requesting suction this morning Neck: supple, large circumference neck, no appreciable JVD but difficult to assess, tracheostomy in place with thick sputum coughing up Respiratory/Chest: auscultated following inhalers and suctioning and lungs appear clear anteriorly, no wheezing or crackles or rales, breathing through tracheostomy Cardiovascular: regular rate, rhythm, no murmur Abdomen/GI: soft, obese, non tender, bowel sounds normal, no guarding, no rebound. Fitch cath in place Extremities/Musculoskeletal: peripheral capillary refill < 2s, +++ stable chronic leg swelling (although difficult to assess) b/l with venous stasis skin changes Neurologic/Psych: Alert, does not want to be on BiPAP during the day. Able to move arms and hands equally with good audio engineer strength, managing to write with right hand, can roll legs and move toes without pain. No facial droop Assessment & Plan 60 yo male with acute on chronic hypoxic, hypercapnic respiratory failure due to obesity hypoventilation with failure of home treatment without BiPAP or trilogy equipment for his trach since discharge on Mar 20. Multiple other co- morbidities as listed in consultation note. Acute on chronic hypoxic respiratory failure - obesity hypoventilation s/p tracheostomy. Persistent left sided pleural effusion with significant atelectasis. Suspect cause for acute deterioration is more likely not having BiPAP at home rather than a acute pneumonia. - appreciate pulmonology and cardiology recommendations - Tolerated BiPAP settings last night 14/6 with resp rate 19-24 - Lasix 40mg IV BID recommended by cardiology due to pulmonary edema, trending Cr stable, will continue at this dose currently but likely need to cut back since also cutting back on IV medications. - Pulmozyme added by pulmonology - ABG in morning 4:00am on consecutive days to assess whether CO2 significantly increasing. Hypokalemic - start PO replacement BID. Probable due to increased Lasix. Hypophosphatemia - Improved today. Will start on K Phos BID Metabolic encephalopathy - resolved with reduction in pCO2 Positive blood culture (04/12) - coagulase negative staph, antibiotics stopped given this is most likely a skin contaminant with normal procalcitonin and WBC Recent pseudomonas pneumonia - WBC not elevated, procalcitonin negative but extensive consolidation on CT - Antibiotics stopped 03/31. Steroids stopped 03/30 - Pseudomonas likely reflects colonization but of note is now resistant to Zosyn which he was treated with. Urinary retention - blocked and brown on admission, now cath draining freely. BPH, also morbid obesity causing external compression. Renal function at baseline. Good urine output with lasix. - UA cath - uric acid crystals and small ketones but negative for infection or blood. - Re-inserted Fitch cath 03/30 - Had right renal mass on CT February; was seen by Dr. Persaud with plan for outpatient f/u, unsure of status of this Idiopathic cardiomyopathy - Ejection Fraction 45-50% - Continue Metoprolol PO 25mg ER - Lasix 40mg IV BID -> consider switch to PO later today or tomorrow Hx Atrial flutter with RVR and Sick sinus syndrome s/p dual chamber pacemaker - Continue amiodarone and metoprolol PO - Appreciate cardiology recommendations - INR 1.4, restarted 5mg warfarin 03/30 Skin - multiple areas of skin breakdown within skin folds. - wound care seen - see note 03/30 for management. Improving Hypothyroidism - TSH high, free T4 normal. Restart 100 mcg levothyroxine. Recommend repeat TSH in 4 weeks. Chronic normocytic anemia (anemia of chronic disease) - appears stable, monitor daily CBC VTE Prophylaxis (Hx DVT on chronic warfarin anticoagulation) - INR 1.4 this morning (>8 on admission, Vit K 10mg IV given in ER). Continue heparin 5000 units Q8H SQ until INR therapeutic - Restarted warfarin 5mg 03/30 GI Prophylaxis - Pantoprazole 40 mg PO Code - Full no cardioversion Disposition - OT and PT evals needed for placement. Stable for transfer to telemetry and no longer requiring ventilation support. Discussed with hospitalist Dr Colin regarding transfer to telemetry. Resident Physician Supervision Note: I was present with Dr. Shearer during the history and exam. I discussed the case with the resident and agree with the findings and plan as documented in the note. Any exceptions or clarifications are listed here: None The patient will continue nocturnal bi-level support, tolerated 22/09 with backup rate of 8. May be transferred out of ICU Physical therapy, but I don't have any goals for the patient, he doesn't want to participate in most aspects of his care. Overall prognosis is quite poor. Documented By: Kenneth Huber MD Data Medications: Current Inpatient Medications Medications (Trade) Dose Ordered Sig/Kelly Route Start Time Stop Time Status Last Admin Dose Admin Acetaminophen/ Empty Bag (Ofirmev IV/ Empty Iv Bag 100ml) 65 ml @ 260 mls/hr Q6H PRN IV 03/29/16 07:30 04/28/16 07:29 Albuterol (Ventolin Hfa Inhaler) 4 puffs Q6H INH 03/29/16 07:30 04/28/16 07:29 04/01/16 07:48 4 PUFFS Ipratropium [place] (Atrovent Hfa Inhaler) 4 puffs Q6R INH 03/29/16 09:00 04/28/16 08:59 04/01/16 07:48 4 PUFFS Heparin Sodium (Porcine) (Heparin Sq 5000 Unit/0.5ml) 5,000 unit Q8 SQ 03/30/16 16:00 04/29/16 15:59 04/01/16 05:53 5,000 UNIT Warfarin Sodium 5 mg 5 mg DAILY@16 PO 03/30/16 16:00 04/29/16 15:59 03/31/16 16:16 5 MG Furosemide/Syringe (Lasix Inj/ Syringe) 4 ml @ 4 mls/min BID IV 03/31/16 21:00 04/30/16 20:59 04/01/16 09:44 4 MLS/MIN Pantoprazole Sodium (Protonix Tab) 40 mg QAM PO 04/01/16 09:00 05/01/16 08:59 04/01/16 09:42 40 MG Atorvastatin Calcium (Lipitor Tab) 10 mg HS PO 03/31/16 21:00 04/30/16 20:59 03/31/16 21:12 10 MG Docusate Sodium (coLACE CAP) 100 mg BID PRN PO 03/31/16 11:00 04/30/16 10:59 Levothyroxine Sodium (Synthroid Tab) 100 mcg DAILYBB PO 04/01/16 06:00 05/01/16 05:59 04/01/16 05:53 100 MCG Multivitamins/ Minerals (Multivitamin W/ Minerals Tab) 1 tab DAILY PO 04/01/16 09:00 05/01/16 08:59 04/01/16 09:42 1 TAB Tamsulosin HCl (Flomax Cap) 0.4 mg HS PO 03/31/16 21:00 04/30/16 20:59 03/31/16 21:12 0.4 MG Amiodarone HCl (Cordarone Tab) 100 mg QAM PO 04/01/16 09:00 05/01/16 08:59 04/01/16 09:41 100 MG Metoprolol Succinate (Toprol Xl Tab) 25 mg QAM PO 04/01/16 09:00 05/01/16 08:59 04/01/16 09:42 25 MG Potassium/ Phosphorus/Sodium (Phospha 250 Neutral 155-852-130 Mg) 1 tab BID PO 04/01/16 21:00 05/01/16 20:59 Potassium Chloride (Klor-Con Pwd) 20 meq BID PO 04/01/16 21:00 05/01/16 20:59 I & O: 24-Hour Column 04/01/16 08:00 Intake Total 1943 ml Output Total 4350 ml Balance -2407 ml Vital Signs: Date Time Temp Pulse Resp B/P Pulse Ox O2 Delivery O2 Flow Rate FiO2 04/01/16 08:00 36.8 68 21 113/80 92 Trach Collar 50 04/01/16 07:52 91 20 96 Trach Collar 50 04/01/16 05:59 61 21 151/64 95 Trach Collar 50 04/01/16 04:16 61 20 120/61 98 BiPAP 40 04/01/16 04:00 BiPAP 40 04/01/16 02:34 61 99 45 04/01/16 02:33 61 20 99 Trach Collar 45 04/01/16 00:00 BiPAP 45 03/31/16 23:59 36.7 62 24 145/83 99 BiPAP 45 03/31/16 23:19 60 99 50 03/31/16 21:59 60 19 147/66 99 BiPAP 50 03/31/16 20:44 60 98 50 03/31/16 20:32 60 20 97 Trach Collar 50 03/31/16 20:00 Trach Collar 03/31/16 19:59 36.8 58 23 128/55 97 Trach Collar 50 03/31/16 18:00 60 22 127/58 97 Trach Collar 30 03/31/16 16:00 96 Trach Collar 50 03/31/16 16:00 36.8 60 26 131/63 96 Trach Collar 50 03/31/16 14:26 60 17 96 Trach Collar 50 03/31/16 14:00 61 24 139/55 95 Trach Collar 50 03/31/16 12:00 36.7 63 16 152/55 96 Trach Collar 50 03/31/16 12:00 50 03/31/16 12:00 96 Trach Collar 50 03/31/16 10:00 62 18 128/74 96 Trach Collar 50 Laboratory Results: Last 24 Hours Test 04/01/16 05:33 White Blood Count 6.05 K/uL Red Blood Count 3.51 M/uL Hemoglobin 9.4 g/dL Hematocrit 30.7 % Mean Corpuscular Volume 87.5 fL Mean Corpuscular Hemoglobin 26.8 pg Mean Corpuscular Hemoglobin Concent 30.6 g/dl Platelet Count 288 K/uL Mean Platelet Volume 8.2 fL Neutrophils (%) (Auto) 62.8 % Lymphocytes (%) (Auto) 22.0 % Monocytes (%) (Auto) 8.8 % Eosinophils (%) (Auto) 5.6 % Basophils (%) (Auto) 0.3 % Neutrophils # (Auto) 3.80 K/uL Lymphocytes # (Auto) 1.33 K/uL Monocytes # (Auto) 0.53 K/uL Eosinophils # (Auto) 0.34 K/uL Basophils # (Auto) 0.02 K/uL RDW Standard Deviation 53.3 fL RDW Coefficient of Variation 17.2 % Immature Granulocyte % (Auto) 0.5 % Immature Granulocyte # (Auto) 0.03 K/uL Prothrombin Time 14.9 SECONDS Prothromb Time International Ratio 1.4 Sodium Level 144 mmol/L Potassium Level 3.2 mmol/L Chloride Level 100 mmol/L Carbon Dioxide Level 39 mmol/L Anion Gap 5.0 mmol/L Blood Urea Nitrogen 24 mg/dl Creatinine 1.10 mg/dl Est Creatinine Clear Calc Drug Dose 117.0 ml/min Estimated GFR () 84.7 Estimated GFR (Non- 73.1 BUN/Creatinine Ratio 21.7 Random Glucose 90 mg/dl Calcium Level 8.7 mg/dl Phosphorus Level 2.5 mg/dl Total Bilirubin 0.6 mg/dl Aspartate Amino Transf (AST/SGOT) 16 U/L Alanine Aminotransferase (ALT/SGPT) 15 U/L Alkaline Phosphatase 60 U/L Total Protein 6.7 gm/dl Albumin 2.1 gm/dl Globulin 4.6 gm/dl Albumin/Globulin Ratio 0.5
--- NOTE | 2016-04-01 12:02 | Clinical Documentation Query ---
YENIFER Perdomo : CLINICAL DOCUMENTATION QUERY Patient is a morbidly obese 60 year old male admitted secondary to acute on chronic respiratory failure. Documentation includes "open skin ulcer", noting wound care consultation. Please explicitly specify the type and severity of this ulcer and also the status on admission. Thank you. In your clinical opinion is this patient being managed for: ( ) Pressure ulcer of lateral surface of left foot, stage 2, POA ( ) Pressure ulcer of lateral surface of left foot, stage 3, POA ( ) Other explanation of clinical findings (Please Explain) ( ) Unable to determine (Please Define) ( ) Need to Discuss ( ) Not Agree The medical record reflects the following clinical findings, treatment, and risk factors. Clinical Indicators: As above Treatment: WOCN consultation, Aquacel Ag and Optifoam Risk Factors: Immobility, obesity, non-compliance Please clarify and document your clinical opinion in the progress notes and discharge summary. Terms such as "probable", "suspected", "likely", "questionable", "possible", or "still to be ruled out" are acceptable. IF IN AGREEMENT, YOU MUST DOCUMENT ABOVE DIAGNOSTIC STATEMENT IN DAILY PROGRESS NOTES AND DISCHARGE SUMMARY. This document is not part of the patient's record. Thank You, Candelario Calabrese, RN [phone]
[2016-04-01] MEDS ORDERED: SERTRALINE HCL 50 MG TAB PO ONE (13:55)
--- NOTE | 2016-04-01 15:20 | CONSULTATION REPORT ---
DATE OF CONSULTATION: 04/01/2016 IDENTIFYING DATA: Marcel Gusman is a 60-year-old gentleman from [place], [place], admitted to the hospital with acute on chronic respiratory failure status post trach and hospital acquired pneumonia. We are consulted to evaluate depression. Information is gathered from the patient, the patient's and the electronic medical record and all considered to be reliable. CHIEF COMPLAINT: None stated. HISTORY OF PRESENT ILLNESS: The patient is interviewed in his ICU room. He communicates mouthing words with his lips and using writing. His is also in the room and unable to help interpret his mouthing of words. To begin with, the gives a history where she believes her has given up. She reports that he has no toni in life, is not making any effort to move and become mobile so that he can get knee replacement. She believes that he is depressed, although he denies this. He says there are times he feels down and anxious. He notes specifically that there are times he fears he is going to , most prominently at night. He therefore says that he is a night person, preferring to stay up at night and sleep during the day. His believes that this is because he fears that he will fall asleep and night. The patient himself reports his mood as a 7/10 with 10 being the best mood ever. He has been bedridden for the last year. He admits that he has had passive thoughts that he would be better off , but denies any active thoughts of suicide now or at any time in the past. He reports his appetite has been down. His sleep has been erratic. He denies that he has ever had symptoms of bipolar disorder including episodes of euphoric mood, sleeplessness or pleasure seeking behaviors. He has chronic anxiety in the setting of hypoxia. He has never been treated psychiatrically and never been on psychiatric medicines in the past. CURRENT MEDICATIONS: 1. Potassium and phosphorus 1 tab b.i.d. 2. Potassium chloride 20 mEq b.i.d. 3. Protonix 40 mg q.a.m. 4. Multivitamin with minerals 1 tab daily. 5. Amiodarone 100 mg q.a.m. 6. Toprol-XL 25 mg q.a.m. 7. Synthroid 100 mcg daily. 8. Lasix 40 mg b.i.d. 9. Lipitor 10 mg at bedtime. 10. Flomax 0.4 mg at bedtime. 11. Colace 100 mg b.i.d. p.r.n. constipation. 12. Heparin subQ. 13. Coumadin 5 mg daily. 14. Atrovent inhaler 4 puffs q. 6 hours. 15. Tylenol p.r.n. 16. Ventolin HFA inhaler 4 puffs q. 4 hours. PAST PSYCHIATRIC HISTORY: The patient denies that he has ever seen a psychiatric professional, ever made a suicide attempt or ever been hospitalized for mental health reasons. ACCESS TO GUNS: Unknown. PAST MEDICAL HISTORY: 1. Hypertension. 2. Class 4 obesity with a current BMI of 55.8. 3. Acute on chronic respiratory failure status post trach, on CPAP. 4. HAP. 5. Decompensated heart failure. 6. History of a DVT. 7. Tobacco use -- nonsmoker. FAMILY HISTORY: Denies for psychiatric issues, substance use or suicide. SUBSTANCE USE HISTORY: The patient denies the use of alcohol, street drugs, organic substances, inhalants, abuse of [id number] medication or prescription medicines now or at any time in the past. PERSONAL HISTORY: The patient resides in [place] with his of 38 years. They do not have children. 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 There are no legal concerns. MENTAL STATUS EXAMINATION: Morbidly obese gentleman with graying hair, seated in his bed. He is alert and cooperative. He does not speak, but prefers to mouth the word or write down the answers. He has trach in place, at bedside. He makes good eye contact. Motor behavior is unremarkable. Affect is flat. Mood is down at times and anxious. Thought process is organized and goal directed. He denies thought disorder in the form of hallucinations or delusions. He denies thoughts, plans, or intent to harm himself or anyone else. Today, he is oriented to person, place and event. His fund of knowledge appears to be intact based on use of vocabulary. Intelligence is estimated to be average. Insight and judgment are limited. VITAL SIGNS: Temp 36.8, pulse 61, respirations 17, blood pressure 141/63 supine, and pulse ox 92% on 15 liters trach collar. LABORATORIES: 1. Most recent CBC with diff -- notable for RBCs 3.51, hemoglobin 9.4, and hematocrit 30.7. 2. Chem profile -- notable for potassium 3.4, carbon dioxide 39, BUN 24, albumin 2.1, globulin 4.6, and albumin-globulin ratio 0.5. 3. TSH -- high at 6.400 with a free T4 of 0.99. 4. Urinalysis -- positive for uric acid, 20-30 epithelials, 5-10 hyaline casts and trace ketones. 5. Coag studies -- today PT 14.9 and INR 1.4. PERTINENT IMAGIN. Head CT -- no acute intracranial findings. 2. Most recent chest x-ray -- cardiomegaly and cardiac pacemaker. Congestive failure persists. There are small pleural effusions and bibasilar consolidation, left greater than right. PHYSICAL EXAMINATION: As per Dr. Shearer. IMPRESSION: A 60-year-old gentleman with multiple medical conditions noted above. We are consulted to evaluate depression. Although, the patient wants to defend against being acutely depressed, his who knows him best reflects that he has stopped trying to work on himself, is anxious and lacking toni in his life. We have discussed a trial of an SSRI, specifically Zoloft and he agrees. I have reviewed with both he and his that people with medical conditions in general have better medical outcomes when they are in antidepressants. I reviewed risks, benefits, and alternatives including the FDA warning for worsened depression and suicidal thinking in young people. We will start with 25 mg daily and increase to 50 mg tomorrow. Of note, his EKG on admission had a QTC of 517 milliseconds. Most all psychiatric medications can prolong this. I will defer to cardiology whether or not there is risk in starting an SSRI in a way that would compromise this man's condition. I will repeat an EKG today. DIAGNOSES: 1. 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 Differential includes major depressive disorder, depression, unspecified. 2. 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 3. Medical conditions as above. PLAN: Has been reviewed with Dr. Libby Ricardo: 1. Depression/anxiety -- recommend a trial of Zoloft 25 mg today and increasing to 50 mg tomorrow. We will run a repeat EKG to check on QTC. We will defer to cardiology or career resource specialist judgment as to whether or not the small risk of further prolongation on an SSRI would be detrimental at this time. 2. The patient will need psychiatric aftercare and where this occurs will depend on whether or not he goes to a [place] [facility] [place] or to home. 3. We will follow while he is here. We thank you for allowing us to participate in this gentleman's care.
[2016-04-01] MEDS: WARFARIN SOD 5 MG TAB PO SCH (16:25)
--- NOTE | 2016-04-01 18:50 | Progress Note ---
Medicine Progress Note Date & Time of Visit: Apr 01, 2016 at 18:44. Subjective Pt was seen and examined Lying in bed with no distress tolerated bipap last night with no apneic episodes denies any chest pain, palpitation, dizziness Objective Last 8 Hrs Date Time Temp Pulse Resp B/P Pulse Ox O2 Delivery O2 Flow Rate FiO2 04/01/16 16:00 36.8 65 17 121/54 95 Trach Collar 50 04/01/16 16:00 95 Trach Collar 15.0 50 04/01/16 14:26 60 20 97 Trach Collar 50 04/01/16 14:00 36.8 61 22 145/63 97 Trach Collar 50 04/01/16 12:00 36.8 61 17 141/63 97 Trach Collar 50 04/01/16 12:00 92 Trach Collar 15.0 50 Physical Exam: General- obesity, flat affect Head- atraumatic Eyes- PERRL, EOMI, anicteric ENT- trach Neck- supple, no JVD Lungs- Poor air entry Heart- regular rhythm; no murmur, S1/S2 present Abdomen- normal bowel sounds, soft, obesity Extremities- + edema, no calf tenderness Neuro- alert, oriented, PERRL, EOMI Skin- warm & dry Laboratory Results: Last 24 Hours Test 04/01/16 05:33 White Blood Count 6.05 K/uL Red Blood Count 3.51 M/uL Hemoglobin 9.4 g/dL Hematocrit 30.7 % Mean Corpuscular Volume 87.5 fL Mean Corpuscular Hemoglobin 26.8 pg Mean Corpuscular Hemoglobin Concent 30.6 g/dl Platelet Count 288 K/uL Mean Platelet Volume 8.2 fL Neutrophils (%) (Auto) 62.8 % Lymphocytes (%) (Auto) 22.0 % Monocytes (%) (Auto) 8.8 % Eosinophils (%) (Auto) 5.6 % Basophils (%) (Auto) 0.3 % Neutrophils # (Auto) 3.80 K/uL Lymphocytes # (Auto) 1.33 K/uL Monocytes # (Auto) 0.53 K/uL Eosinophils # (Auto) 0.34 K/uL Basophils # (Auto) 0.02 K/uL RDW Standard Deviation 53.3 fL RDW Coefficient of Variation 17.2 % Immature Granulocyte % (Auto) 0.5 % Immature Granulocyte # (Auto) 0.03 K/uL Prothrombin Time 14.9 SECONDS Prothromb Time International Ratio 1.4 Sodium Level 144 mmol/L Potassium Level 3.2 mmol/L Chloride Level 100 mmol/L Carbon Dioxide Level 39 mmol/L Anion Gap 5.0 mmol/L Blood Urea Nitrogen 24 mg/dl Creatinine 1.10 mg/dl Est Creatinine Clear Calc Drug Dose 117.0 ml/min Estimated GFR () 84.7 Estimated GFR (Non- 73.1 BUN/Creatinine Ratio 21.7 Random Glucose 90 mg/dl Calcium Level 8.7 mg/dl Phosphorus Level 2.5 mg/dl Total Bilirubin 0.6 mg/dl Aspartate Amino Transf (AST/SGOT) 16 U/L Alanine Aminotransferase (ALT/SGPT) 15 U/L Alkaline Phosphatase 60 U/L Total Protein 6.7 gm/dl Albumin 2.1 gm/dl Globulin 4.6 gm/dl Albumin/Globulin Ratio 0.5 Assessment & Plan Acute on chronic hypoxic respiratory failure - obesity hypoventilation s/p tracheostomy Pt has not been using the BiPap at home because he is waiting for a piece Looks very comfortable on vent -failed CPAP trial 03/31 - pseudomonas on sputum cx possible colonization -Procalcitonin normal Zosyn was d/c by the ICU team Pulmonology consulted started pt on pulmozyme -Did well last night on Bipap -Continue monitor DEPRESSION Psych was consulted recommended to start zoloft 25mg today, then in crease to 50mg tomorrow will monitor his QTC EKG in am Metabolic encephalopathy - -CT head negative -Possible related to hypercapnia -Resolved Bacteremia - gram positive cocci on blood cx Possible contaamination Afebrile, no WBC, procalcitonin normal d/C vanco Continue monitor cbc Urinary retention will monitor I/O - Right renal mass seen on CT February; -Follow with Dr. Persaud as an outpatient Idiopathic cardiomyopathy - Ejection Fraction 45-50% Continue lasix cardiology on board Stable Hx Atrial flutter with RVR and Sick sinus syndrome s/p dual chamber pacemaker - rate is controlled - Continue amiodarone and metoprolol - continue coumadin - INR 1.4 today check INR in am Stable Open skin ulcer. - wound care consulted Hypothyroidism - Continue levothyroxine Chronic normocytic anemia (anemia of chronic disease) - Hbg stable -monitor CBC VTE Prophylaxis - INR 1.4 this morning (>8 on admission, Vit K 10mg IV given in ER). Start heparin 5000 units Q8H SQ - continue warfarin. GI Prophylaxis - Pantoprazole 40 mg Code - Full no cardioversion Disposition Transfer to medical floor Current Inpatient Medications: Current Inpatient Medications Medications (Trade) Dose Ordered Sig/Kelly Route Start Time Stop Time Status Last Admin Dose Admin Acetaminophen/ Empty Bag (Ofirmev IV/ Empty Iv Bag 100ml) 65 ml @ 260 mls/hr Q6H PRN IV 03/29/16 07:30 04/28/16 07:29 Albuterol (Ventolin Hfa Inhaler) 4 puffs Q6H INH 03/29/16 07:30 04/28/16 07:29 04/01/16 16:23 4 PUFFS Ipratropium [place] (Atrovent Hfa Inhaler) 4 puffs Q6R INH 03/29/16 09:00 04/28/16 08:59 04/01/16 16:23 4 PUFFS Heparin Sodium (Porcine) (Heparin Sq 5000 Unit/0.5ml) 5,000 unit Q8 SQ 03/30/16 16:00 04/29/16 15:59 04/01/16 14:53 5,000 UNIT Warfarin Sodium 5 mg 5 mg DAILY@16 PO 03/30/16 16:00 04/29/16 15:59 04/01/16 16:25 5 MG Furosemide/Syringe (Lasix Inj/ Syringe) 4 ml @ 4 mls/min BID IV 03/31/16 21:00 04/30/16 20:59 04/01/16 09:44 4 MLS/MIN Pantoprazole Sodium (Protonix Tab) 40 mg QAM PO 04/01/16 09:00 05/01/16 08:59 04/01/16 09:42 40 MG Atorvastatin Calcium (Lipitor Tab) 10 mg HS PO 03/31/16 21:00 04/30/16 20:59 03/31/16 21:12 10 MG Docusate Sodium (coLACE CAP) 100 mg BID PRN PO 03/31/16 11:00 04/30/16 10:59 Levothyroxine Sodium (Synthroid Tab) 100 mcg DAILYBB PO 04/01/16 06:00 05/01/16 05:59 04/01/16 05:53 100 MCG Multivitamins/ Minerals (Multivitamin W/ Minerals Tab) 1 tab DAILY PO 04/01/16 09:00 05/01/16 08:59 04/01/16 09:42 1 TAB Tamsulosin HCl (Flomax Cap) 0.4 mg HS PO 03/31/16 21:00 04/30/16 20:59 03/31/16 21:12 0.4 MG Amiodarone HCl (Cordarone Tab) 100 mg QAM PO 04/01/16 09:00 05/01/16 08:59 04/01/16 09:41 100 MG Metoprolol Succinate (Toprol Xl Tab) 25 mg QAM PO 04/01/16 09:00 05/01/16 08:59 04/01/16 09:42 25 MG Potassium/ Phosphorus/Sodium (Phospha 250 Neutral 155-852-130 Mg) 1 tab BID PO 04/01/16 21:00 05/01/16 20:59 Potassium Chloride (Klor-Con Pwd) 20 meq BID PO 04/01/16 21:00 05/01/16 20:59 Sertraline HCl (Zoloft Tab) 50 mg QAM PO 04/02/16 09:00 05/02/16 08:59
[2016-04-01] MEDS: POT PHOSPHATE MONOBASIC W/ SOD TAB PO SCH (20:43)
[2016-04-01] MEDS: ATORVASTATIN 10 MG TAB PO SCH (20:43)
[2016-04-01] MEDS: TAMSULOSIN HCL 0.4 MG CAP PO SCH (20:44)
[2016-04-01] MEDS: POTASSIUM CHLORIDE PWD 20 MEQ PACK PO SCH (20:45)
[2016-04-02] VITALS (11 sets, daily range): BP systolic 123–144; BP diastolic 70–80; PULSE 60–84; TEMP 37.1–37.6; O2SAT 94–99
[2016-04-02] MEDS: ALBUTEROL HFA 8 GM INHALER INH SCH ×4 (01:37→20:31)
[2016-04-02] MEDS: IPRATROPIUM BROMIDE HFA INHALER INH SCH ×4 (01:37→20:31)
[2016-04-02 05:08] LABS: ARTERIAL BLD GAS O2 SATURATION 93.1 % (90-95); ARTERIAL BLOOD GAS BASE EXCESS 15.1 mEq/L (-9-1.8); ARTERIAL BLOOD GAS HCO3 42 mmol/L (19-24); ARTERIAL BLOOD GAS PO2 74 mm/Hg (80-95); ARTERIAL BLOOD GAS pH 7.39 (7.35-7.45)
[2016-04-02 05:09] LABS: ALLEN TEST POS (POS); O2 ADMINISTRATION 40%
[2016-04-02] MEDS: HEPARIN SOD 5000 UNIT/0.5 ML CARP SQ SCH ×3 (05:28→21:32)
[2016-04-02 06:44] LABS: BASO % 0.5 %; BASO ABS # 0.03 K/uL (0-0.2); COMPLETE YES; HEMATOCRIT 31.3 % (42-52); IG% 0.2 %; LYMPH ABS # 1.37 K/uL (1.2-3.4); MEAN CELL VOLUME 89.4 fL (80-100); MEAN CORPUSCULAR HEMOGLOBIN 26.9 pg (25-34); MEAN PLATELET VOLUME 8.6 fL (7.4-10.4); NEUT % 58.3 %; PLATELET COUNT 297 K/uL (130-400); WHITE BLOOD COUNT 6.23 K/uL (4.8-10.8)
[2016-04-02 06:51] LABS: INR 1.5 (0.9-1.1); PROTHROMBIN TIME (PATIENT) 16.3 SECONDS (9.0-12.0)
[2016-04-02 07:17] LABS: BUN/CREATININE RATIO 31.2 (10-20); CALCIUM 8.8 mg/dl (8.5-10.1); CREATININE 0.84 mg/dl (0.60-1.40); MAGNESIUM 1.7 mg/dl (1.8-2.4); PHOSPHORUS 2.6 mg/dl (2.5-4.9); POTASSIUM 3.6 mmol/L (3.5-5.1)
[2016-04-02] MEDS: LEVOTHYROXINE 100 MCG TAB PO SCH (07:20)
[2016-04-02] MEDS: AMIODARONE 200 MG TAB PO SCH (08:10)
[2016-04-02] MEDS: POTASSIUM CHLORIDE PWD 20 MEQ PACK PO SCH ×2 (08:10→20:00)
[2016-04-02] MEDS: PANTOprazole SOD 40 MG TAB PO SCH (08:43)
[2016-04-02] MEDS: SERTRALINE HCL 50 MG TAB PO SCH (08:43)
[2016-04-02] MEDS: CEROVITE ADV FORMULA TAB PO SCH (08:43)
[2016-04-02] MEDS: POT PHOSPHATE MONOBASIC W/ SOD TAB PO SCH ×2 (08:44→21:27)
[2016-04-02] MEDS: METOPROLOL SUCC 25MG EXT REL TAB PO SCH (08:44)
[2016-04-02] MEDS: FUROSEMIDE INJ 40 MG in SYRINGE 0 ML IV SCH ×2 (10:12→21:25)
--- NOTE | 2016-04-02 14:29 | Psychiatric Progress Notes ---
Psychiatric Progress Note Date of Service Apr 02, 2016. Notes ID: Patient reviewed with liaison nurse. Initial consult by PADILLA Cornejo reviewed. CC: signaled all good HPI: denies issues over night, denies GI concerns. ROS: full ROS deferred to medical, continues to deny depression MSE: alert, calm, thoughts difficult to assess given limited speech due to trach , answered appropriately by mouthing words and written communication, no SI/HI/ sebastian. Imp: anxiety and depressive symptoms related to GMC, had become more resistant to direct care Plan: started Zoloft yesterday, continue 50 mg Zoloft, rx per PCP or accepting physician at care facility if that is his disposition f/u QTc on EKG at discretion of primary team and/or cards senior consultant.
--- NOTE | 2016-04-02 15:00 | Progress Note ---
Medicine Progress Note Date & Time of Visit: Apr 02, 2016 at 14:28. Subjective Pt was seen band examined Seems comfortable on Tpiece with track he said that he feels ok The oral secretion improves He denies any chest pain, palpitation, dizziness Objective Last 8 Hrs Date Time Temp Pulse Resp B/P Pulse Ox O2 Delivery O2 Flow Rate FiO2 04/02/16 08:20 Trach Collar 40 04/02/16 07:56 37.1 61 20 135/72 99 Trach Collar 04/02/16 07:22 70 96 40 04/02/16 07:21 70 16 98 Trach Collar 30 Physical Exam: General- obesity, flat affect Head- atraumatic Eyes- PERRL, EOMI, anicteric ENT- trach Neck- supple, no JVD Lungs-Coarse breath sound Heart- regular rhythm; no murmur, S1/S2 present Abdomen- normal bowel sounds, soft, obesity Extremities- + edema, no calf tenderness Neuro- alert, oriented, PERRL, EOMI Skin- warm & dry Laboratory Results: Last 24 Hours Test 04/02/16 04:45 04/02/16 06:15 Arterial Blood pH 7.39 Arterial Blood Partial Pressure CO2 70 mmHg Arterial Blood Partial Pressure O2 74 mm/Hg Arterial Blood HCO3 42 mmol/L Arterial Blood Oxygen Saturation 93.1 % Arterial Blood Base Excess 15.1 mEq/L Arterial Blood Gas Delivery 40% [place] Test POS White Blood Count 6.23 K/uL Red Blood Count 3.50 M/uL Hemoglobin 9.4 g/dL Hematocrit 31.3 % Mean Corpuscular Volume 89.4 fL Mean Corpuscular Hemoglobin 26.9 pg Mean Corpuscular Hemoglobin Concent 30.0 g/dl Platelet Count 297 K/uL Mean Platelet Volume 8.6 fL Neutrophils (%) (Auto) 58.3 % Lymphocytes (%) (Auto) 22.0 % Monocytes (%) (Auto) 10.0 % Eosinophils (%) (Auto) 9.0 % Basophils (%) (Auto) 0.5 % Neutrophils # (Auto) 3.64 K/uL Lymphocytes # (Auto) 1.37 K/uL Monocytes # (Auto) 0.62 K/uL Eosinophils # (Auto) 0.56 K/uL Basophils # (Auto) 0.03 K/uL RDW Standard Deviation 55.0 fL RDW Coefficient of Variation 17.4 % Immature Granulocyte % (Auto) 0.2 % Immature Granulocyte # (Auto) 0.01 K/uL Prothrombin Time 16.3 SECONDS Prothromb Time International Ratio 1.5 Sodium Level 142 mmol/L Potassium Level 3.6 mmol/L Chloride Level 97 mmol/L Carbon Dioxide Level 39 mmol/L Anion Gap 6.0 mmol/L Blood Urea Nitrogen 26 mg/dl Creatinine 0.84 mg/dl Est Creatinine Clear Calc Drug Dose 153.2 ml/min Estimated GFR () 111.1 Estimated GFR (Non- 95.8 BUN/Creatinine Ratio 31.2 Random Glucose 86 mg/dl Calcium Level 8.8 mg/dl Phosphorus Level 2.6 mg/dl Magnesium Level 1.7 mg/dl Assessment & Plan Acute on chronic hypoxic respiratory failure - obesity hypoventilation s/p tracheostomy Pt has not been using the BiPap at home because he is waiting for a piece Looks very comfortable on vent -failed CPAP trial 03/31 - pseudomonas on sputum cx possible colonization -Procalcitonin normal Zosyn was d/c by the ICU team Pulmonology consulted started pt on pulmozyme -Did well last night on Bipap - Doing well on trach Tpiece -Placement pending - Received a call from the [employer] that they don't work with trach patient - case maker notified and Dr. Fontenot is awared. - Continue monitor pt DEPRESSION Psych was consulted Zoloft Increased to 50mg will monitor his QTC EKG in am Metabolic encephalopathy - -CT head negative -Possible related to hypercapnia -Resolved Bacteremia - gram positive cocci on blood cx Possible contaamination Afebrile, no WBC, procalcitonin normal d/C vanco Continue monitor cbc Stable Urinary retention will monitor I/O - Right renal mass seen on CT February; -Follow with Dr. Persaud as an outpatient Idiopathic cardiomyopathy - Ejection Fraction 45-50% Continue lasix cardiology on board Stable Hx Atrial flutter with RVR and Sick sinus syndrome s/p dual chamber pacemaker - rate is controlled - Continue amiodarone and metoprolol - continue coumadin - INR 1.5 today check INR in am Stable Pressure Skin ulcer - Morbid obesity - Bed bound and pt only stays in bed at home - wound care consulted - Continue Wound care Hypothyroidism - Continue levothyroxine Chronic normocytic anemia (anemia of chronic disease) - Hbg stable -monitor CBC VTE Prophylaxis - INR 1.4 this morning (>8 on admission, Vit K 10mg IV given in ER). Start heparin 5000 units Q8H SQ - continue warfarin. 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 Psych Wound Care Current Inpatient Medications: Current Inpatient Medications Medications (Trade) Dose Ordered Sig/Kelly Route Start Time Stop Time Status Last Admin Dose Admin Acetaminophen/ Empty Bag (Ofirmev IV/ Empty Iv Bag 100ml) 65 ml @ 260 mls/hr Q6H PRN IV 03/29/16 07:30 04/28/16 07:29 Albuterol (Ventolin Hfa Inhaler) 4 puffs Q6H INH 03/29/16 07:30 04/28/16 07:29 04/02/16 07:21 4 PUFFS Ipratropium [place] (Atrovent Hfa Inhaler) 4 puffs Q6R INH 03/29/16 09:00 04/28/16 08:59 04/02/16 07:21 4 PUFFS Heparin Sodium (Porcine) (Heparin Sq 5000 Unit/0.5ml) 5,000 unit Q8 SQ 03/30/16 16:00 04/29/16 15:59 04/02/16 05:28 5,000 UNIT Warfarin Sodium 5 mg 5 mg DAILY@16 PO 03/30/16 16:00 04/29/16 15:59 04/01/16 16:25 5 MG Furosemide/Syringe (Lasix Inj/ Syringe) 4 ml @ 4 mls/min BID IV 03/31/16 21:00 04/30/16 20:59 04/02/16 10:12 4 MLS/MIN Pantoprazole Sodium (Protonix Tab) 40 mg QAM PO 04/01/16 09:00 05/01/16 08:59 04/02/16 08:43 40 MG Atorvastatin Calcium (Lipitor Tab) 10 mg HS PO 03/31/16 21:00 04/30/16 20:59 04/01/16 20:43 10 MG Docusate Sodium (coLACE CAP) 100 mg BID PRN PO 03/31/16 11:00 04/30/16 10:59 Levothyroxine Sodium (Synthroid Tab) 100 mcg DAILYBB PO 04/01/16 06:00 05/01/16 05:59 04/02/16 07:20 100 MCG Multivitamins/ Minerals (Multivitamin W/ Minerals Tab) 1 tab DAILY PO 04/01/16 09:00 05/01/16 08:59 04/02/16 08:43 1 TAB Tamsulosin HCl (Flomax Cap) 0.4 mg HS PO 03/31/16 21:00 04/30/16 20:59 04/01/16 20:44 0.4 MG Amiodarone HCl (Cordarone Tab) 100 mg QAM PO 04/01/16 09:00 05/01/16 08:59 04/02/16 08:10 100 MG Metoprolol Succinate (Toprol Xl Tab) 25 mg QAM PO 04/01/16 09:00 05/01/16 08:59 04/02/16 08:44 25 MG Potassium/ Phosphorus/Sodium (Phospha 250 Neutral 155-852-130 Mg) 1 tab BID PO 04/01/16 20:00 05/01/16 20:59 04/02/16 08:44 1 TAB Potassium Chloride (Klor-Con Pwd) 20 meq BID PO 04/01/16 20:00 05/01/16 20:59 04/02/16 08:10 20 MEQ Sertraline HCl (Zoloft Tab) 50 mg QAM PO 04/02/16 08:00 05/02/16 08:59 04/02/16 08:43 50 MG
--- NOTE | 2016-04-02 15:15 | Pulmonology Progress Note ---
Pulmonary Progress Note Date of Service Apr 02, 2016. Attending Dr. Star Fontenot Subjective Patient doing well today with increased energy. He does not complain of fevers chills or productive sputum. Objective Patient off the ventilator during our conversation not using accessory muscles showing no signs of tachypnea. He was able to plug the tracheostomy and speak minimal sentences once again showing no signs of increased work of breathing. Lab/culture: Sputum: 03/29/16--pseudomonas Physical exam: Respiratory: Anteriorly clear to auscultation bilaterally difficult to hear the posterior exam Cardiac: S1-S2 regular rate and rhythm distant heart sounds next line abdomen positive bowel sounds soft no tenderness to deep palpation Assessment & Plan 60-year-old gentleman with obesity hypoventilation syndrome: #1 obesity hypoventilation: The patient requires mechanical ventilation during his sleeping hours. We should also try to continue his mechanical ventilation throughout most of the day/as much as he can tolerate. #2 Pseudomonas: The high likelihood this patient is colonized agree with primary team would not initiate antibiotic treatment at this time. If patient shows signs of infection such as spiking temperatures, sputum production and/or elevated white blood cell count with then start antipseudomonal medications for double coverage. #3 follow-up: I have spoken to Dr. carey the pulmonary Department and he will follow this patient as an outpatient over the weekend Dr. Hoyos will be following out patient's Data Medications: Current Inpatient Medications Medications (Trade) Dose Ordered Sig/Kelly Route Start Time Stop Time Status Last Admin Dose Admin Acetaminophen/ Empty Bag (Ofirmev IV/ Empty Iv Bag 100ml) 65 ml @ 260 mls/hr Q6H PRN IV 03/29/16 07:30 04/28/16 07:29 Albuterol (Ventolin Hfa Inhaler) 4 puffs Q6H INH 03/29/16 07:30 04/28/16 07:29 04/02/16 14:28 4 PUFFS Ipratropium [place] (Atrovent Hfa Inhaler) 4 puffs Q6R INH 03/29/16 09:00 04/28/16 08:59 04/02/16 14:28 4 PUFFS Heparin Sodium (Porcine) (Heparin Sq 5000 Unit/0.5ml) 5,000 unit Q8 SQ 03/30/16 16:00 04/29/16 15:59 04/02/16 14:28 5,000 UNIT Warfarin Sodium 5 mg 5 mg DAILY@16 PO 03/30/16 16:00 04/29/16 15:59 04/01/16 16:25 5 MG Furosemide/Syringe (Lasix Inj/ Syringe) 4 ml @ 4 mls/min BID IV 03/31/16 21:00 04/30/16 20:59 04/02/16 10:12 4 MLS/MIN Pantoprazole Sodium (Protonix Tab) 40 mg QAM PO 04/01/16 09:00 05/01/16 08:59 04/02/16 08:43 40 MG Atorvastatin Calcium (Lipitor Tab) 10 mg HS PO 03/31/16 21:00 04/30/16 20:59 04/01/16 20:43 10 MG Docusate Sodium (coLACE CAP) 100 mg BID PRN PO 03/31/16 11:00 04/30/16 10:59 Levothyroxine Sodium (Synthroid Tab) 100 mcg DAILYBB PO 04/01/16 06:00 05/01/16 05:59 04/02/16 07:20 100 MCG Multivitamins/ Minerals (Multivitamin W/ Minerals Tab) 1 tab DAILY PO 04/01/16 09:00 05/01/16 08:59 04/02/16 08:43 1 TAB Tamsulosin HCl (Flomax Cap) 0.4 mg HS PO 03/31/16 21:00 04/30/16 20:59 04/01/16 20:44 0.4 MG Amiodarone HCl (Cordarone Tab) 100 mg QAM PO 04/01/16 09:00 05/01/16 08:59 04/02/16 08:10 100 MG Metoprolol Succinate (Toprol Xl Tab) 25 mg QAM PO 04/01/16 09:00 05/01/16 08:59 04/02/16 08:44 25 MG Potassium/ Phosphorus/Sodium (Phospha 250 Neutral 155-852-130 Mg) 1 tab BID PO 04/01/16 20:00 05/01/16 20:59 04/02/16 08:44 1 TAB Potassium Chloride (Klor-Con Pwd) 20 meq BID PO 04/01/16 20:00 05/01/16 20:59 04/02/16 08:10 20 MEQ Sertraline HCl (Zoloft Tab) 50 mg QAM PO 04/02/16 08:00 05/02/16 08:59 04/02/16 08:43 50 MG I & O: 24-Hour Column 04/02/16 08:00 Intake Total 1400 ml Output Total 3010 ml Balance -1610 ml Vital Signs: Date Time Temp Pulse Resp B/P Pulse Ox O2 Delivery O2 Flow Rate FiO2 04/02/16 14:29 60 16 98 Trach Collar 100 04/02/16 08:20 Trach Collar 40 04/02/16 07:56 37.1 61 20 135/72 99 Trach Collar 04/02/16 07:22 70 96 40 04/02/16 07:21 70 16 98 Trach Collar 30 04/02/16 01:41 62 20 96 Trach Collar 40 04/02/16 00:00 99 BiPAP 15.0 45 04/01/16 23:15 37.1 61 23 105/69 98 Room Air 04/01/16 22:08 60 96 40 04/01/16 20:00 Trach Collar 04/01/16 19:01 37.3 60 18 111/64 94 Trach Collar 04/01/16 16:00 36.8 65 17 121/54 95 Trach Collar 50 04/01/16 16:00 95 Trach Collar 15.0 50 Laboratory Results: Last 24 Hours Test 04/02/16 04:45 04/02/16 06:15 Arterial Blood pH 7.39 Arterial Blood Partial Pressure CO2 70 mmHg Arterial Blood Partial Pressure O2 74 mm/Hg Arterial Blood HCO3 42 mmol/L Arterial Blood Oxygen Saturation 93.1 % Arterial Blood Base Excess 15.1 mEq/L Arterial Blood Gas Delivery 40% [place] Test POS White Blood Count 6.23 K/uL Red Blood Count 3.50 M/uL Hemoglobin 9.4 g/dL Hematocrit 31.3 % Mean Corpuscular Volume 89.4 fL Mean Corpuscular Hemoglobin 26.9 pg Mean Corpuscular Hemoglobin Concent 30.0 g/dl Platelet Count 297 K/uL Mean Platelet Volume 8.6 fL Neutrophils (%) (Auto) 58.3 % Lymphocytes (%) (Auto) 22.0 % Monocytes (%) (Auto) 10.0 % Eosinophils (%) (Auto) 9.0 % Basophils (%) (Auto) 0.5 % Neutrophils # (Auto) 3.64 K/uL Lymphocytes # (Auto) 1.37 K/uL Monocytes # (Auto) 0.62 K/uL Eosinophils # (Auto) 0.56 K/uL Basophils # (Auto) 0.03 K/uL RDW Standard Deviation 55.0 fL RDW Coefficient of Variation 17.4 % Immature Granulocyte % (Auto) 0.2 % Immature Granulocyte # (Auto) 0.01 K/uL Prothrombin Time 16.3 SECONDS Prothromb Time International Ratio 1.5 Sodium Level 142 mmol/L Potassium Level 3.6 mmol/L Chloride Level 97 mmol/L Carbon Dioxide Level 39 mmol/L Anion Gap 6.0 mmol/L Blood Urea Nitrogen 26 mg/dl Creatinine 0.84 mg/dl Est Creatinine Clear Calc Drug Dose 153.2 ml/min Estimated GFR () 111.1 Estimated GFR (Non- 95.8 BUN/Creatinine Ratio 31.2 Random Glucose 86 mg/dl Calcium Level 8.8 mg/dl Phosphorus Level 2.6 mg/dl Magnesium Level 1.7 mg/dl
[2016-04-02] MEDS: WARFARIN SOD 5 MG TAB PO SCH (17:09)
[2016-04-02] MEDS: TAMSULOSIN HCL 0.4 MG CAP PO SCH (21:26)
[2016-04-02] MEDS: ATORVASTATIN 10 MG TAB PO SCH (21:27)
[2016-04-03] VITALS (12 sets, daily range): BP systolic 125–146; BP diastolic 72–78; PULSE 58–82; TEMP 36.9–37; O2SAT 93–100
[2016-04-03] MEDS: ALBUTEROL HFA 8 GM INHALER INH SCH ×4 (01:30→19:05)
[2016-04-03] MEDS: IPRATROPIUM BROMIDE HFA INHALER INH SCH ×4 (01:30→19:05)
[2016-04-03] MEDS: TRAMADOL HCL 50 MG TAB PO PRN (02:33)
[2016-04-03 06:24] LABS: BASO % 0.2 %; BASO ABS # 0.01 K/uL (0-0.2); COMPLETE YES; HEMATOCRIT 30.8 % (42-52); IG% 0.4 %; LYMPH ABS # 1.17 K/uL (1.2-3.4); MEAN CELL VOLUME 88.8 fL (80-100); MEAN CORPUSCULAR HEMOGLOBIN 26.5 pg (25-34); MEAN CORPUSCULAR HGB CONC 29.9 g/dl (32-36); MEAN PLATELET VOLUME 8.3 fL (7.4-10.4); MONO % 10.6 %; NEUT % 58.8 %; PLATELET COUNT 219 K/uL (130-400); RED BLOOD COUNT 3.47 M/uL (4.7-6.1); WHITE BLOOD COUNT 5.58 K/uL (4.8-10.8)
[2016-04-03 06:36] LABS: INR 1.6 (0.9-1.1); PROTHROMBIN TIME (PATIENT) 17.3 SECONDS (9.0-12.0)
[2016-04-03] MEDS: LEVOTHYROXINE 100 MCG TAB PO SCH (06:44)
[2016-04-03] MEDS: HEPARIN SOD 5000 UNIT/0.5 ML CARP SQ SCH ×3 (06:46→21:32)
--- NOTE | 2016-04-03 06:48 | PULMONARY PROGRESS NOTE ---
DATE: 04/03/2016 The patient is quite comfortable this morning. He appears to be considerably improved from last time I evaluated the patient. He denies significant sputum production. Laboratory folks have a great deal of difficulty with getting blood gas, I think we can cancel that this morning. They tried numerous times from the left wrist. The patient slept fairly well last night. He denies shortness of breath. He had been on BiPAP and has been agreeable to use that finally. He states he feels considerably improved than he did over the last several months. Respiratory notes, social service notes, nutrition and nurses' notes reviewed. PHYSICAL EXAMINATION: VITAL SIGNS: Stable and he is afebrile. Blood pressure is 144/80 last night. Oxygen saturation is 96% on 40% trach collar. His weight is 176.5 kilograms. MEDICATIONS: Noted. SKIN: Trach site looks good. HEENT: Posterior pharynx shows no thrush. There is no neck vein distention or HJR. No subcutaneous emphysema is noted. HEART: Regular rate and rhythm. No murmurs are heard. LUNGS: Reveal markedly decreased breath sounds bilaterally, especially at the left base. No crackles or wheezing noted. ABDOMEN: Soft, nontender. He is obese. He has significant weakness of the musculature of the thorax with a weak shoulder shrug and loss of pectoralis muscle mass by exam. EXTREMITIES: He has no cyanosis or clubbing. LABORATORY DATA: H\T\H is 9.4 and 31% yesterday, platelet count 297,000. Blood gas yesterday revealed pH 7.39, pCO2 of 70, pO2 of 74. Chemistry profile was pending. His CO2 was 39 on the electrolytes, magnesium was 1.7. CT and chest x-ray showed left pleural effusion. IMPRESSION: 1. Chronic respiratory failure with hypercapnia and hypoxemia secondary to hypoventilation syndrome. 2. Profound obesity hypoventilation syndrome. 3. Left pleural effusion. 4. Anemia. RECOMMENDATIONS: At this point, I would continue with his present medications. Continue on BiPAP as much as he would tolerate it during the day and night. There is no evidence of any arrhythmia. He is tolerating the amiodarone well. Maybe attempt to cut back on some of the pain medications. His INR was only 1.5 yesterday and the Coumadin would need to be adjusted as well. Overall, from a pulmonary standpoint, he is stable.
[2016-04-03 06:57] LABS: BUN/CREATININE RATIO 33.6 (10-20); CALCIUM 8.7 mg/dl (8.5-10.1); CREATININE 0.81 mg/dl (0.60-1.40); PHOSPHORUS 2.3 mg/dl (2.5-4.9); POTASSIUM 3.7 mmol/L (3.5-5.1)
[2016-04-03] MEDS: AMIODARONE 200 MG TAB PO SCH (09:14)
[2016-04-03] MEDS: POT PHOSPHATE MONOBASIC W/ SOD TAB PO SCH ×2 (09:14→21:36)
[2016-04-03] MEDS: PANTOprazole SOD 40 MG TAB PO SCH (09:14)
[2016-04-03] MEDS: CEROVITE ADV FORMULA TAB PO SCH (09:14)
[2016-04-03] MEDS: SERTRALINE HCL 50 MG TAB PO SCH (09:14)
[2016-04-03] MEDS: POTASSIUM CHLORIDE PWD 20 MEQ PACK PO SCH ×2 (09:15→21:34)
[2016-04-03] MEDS: METOPROLOL SUCC 25MG EXT REL TAB PO SCH (09:16)
[2016-04-03] MEDS: FUROSEMIDE INJ 40 MG in SYRINGE 0 ML IV SCH ×2 (09:17→21:34)
[2016-04-03] MEDS: WARFARIN SOD 5 MG TAB PO SCH (15:50)
--- NOTE | 2016-04-03 16:03 | Progress Note ---
Medicine Progress Note Date & Time of Visit: Apr 03, 2016 at 15:48. Subjective Pt was seen and examined Pt looks very comfortable family at bedside watching TV Pt said that the secretion is less he said that he tolerated the BIPAP well he said that he feels much better Denies any chest pain, palpitation and dizziness Objective Last 8 Hrs Date Time Temp Pulse Resp B/P Pulse Ox O2 Delivery O2 Flow Rate FiO2 04/03/16 13:54 64 20 98 Trach Collar 40 04/03/16 08:00 93 Trach Collar 15.0 40 Physical Exam: General- obesity, no distress, comfortable Head- atraumatic Eyes- PERRL, EOMI, anicteric ENT- trach Neck- supple, no JVD Lungs-Coarse breath sound Heart- regular rhythm; no murmur, S1/S2 present Abdomen- normal bowel sounds, soft, obesity Extremities- + edema, no calf tenderness Neuro- alert, oriented, PERRL, EOMI Skin- warm & dry Laboratory Results: Last 24 Hours Test 04/03/16 06:14 White Blood Count 5.58 K/uL Red Blood Count 3.47 M/uL Hemoglobin 9.2 g/dL Hematocrit 30.8 % Mean Corpuscular Volume 88.8 fL Mean Corpuscular Hemoglobin 26.5 pg Mean Corpuscular Hemoglobin Concent 29.9 g/dl Platelet Count 219 K/uL Mean Platelet Volume 8.3 fL Neutrophils (%) (Auto) 58.8 % Lymphocytes (%) (Auto) 21.0 % Monocytes (%) (Auto) 10.6 % Eosinophils (%) (Auto) 9.0 % Basophils (%) (Auto) 0.2 % Neutrophils # (Auto) 3.29 K/uL Lymphocytes # (Auto) 1.17 K/uL Monocytes # (Auto) 0.59 K/uL Eosinophils # (Auto) 0.50 K/uL Basophils # (Auto) 0.01 K/uL RDW Standard Deviation 53.8 fL RDW Coefficient of Variation 17.3 % Immature Granulocyte % (Auto) 0.4 % Immature Granulocyte # (Auto) 0.02 K/uL Prothrombin Time 17.3 SECONDS Prothromb Time International Ratio 1.6 Sodium Level 142 mmol/L Potassium Level 3.7 mmol/L Chloride Level 95 mmol/L Carbon Dioxide Level 40 mmol/L Anion Gap 7.0 mmol/L Blood Urea Nitrogen 27 mg/dl Creatinine 0.81 mg/dl Est Creatinine Clear Calc Drug Dose 158.9 ml/min Estimated GFR () 112.7 Estimated GFR (Non- 97.3 BUN/Creatinine Ratio 33.6 Random Glucose 96 mg/dl Calcium Level 8.7 mg/dl Phosphorus Level 2.3 mg/dl Assessment & Plan Acute on chronic hypoxic respiratory failure - obesity hypoventilation s/p tracheostomy Pt has not been using the BiPap at home because he is waiting for a piece Looks very comfortable on vent -failed CPAP trial 03/31 - pseudomonas on sputum cx possible colonization -Procalcitonin normal Zosyn was d/c by the ICU team Pulmonology consulted started pt on pulmozyme -Did well last night on Bipap - Doing well on trach Tpiece -Placement pending - Received a call from the [facility] that they don't work with trach patient - casework supervisor notified and Dr. Fontenot is awared. -Tolerated BIPAP well -No episode of arrhythmia and tachycardia - As per hack driver, recommended to continue BIPAP at night and during the day as much as tolerated DEPRESSION Psych was consulted Zoloft Increased to 50mg denied any side effect continue zoloft Metabolic encephalopathy - -CT head negative -Possible related to hypercapnia -Resolved Bacteremia - gram positive cocci on blood cx Possible contaamination Afebrile, no WBC, procalcitonin normal d/C vanco Continue monitor cbc Stable Urinary retention will monitor I/O - Right renal mass seen on CT February; -Follow with Dr. Persaud as an outpatient Idiopathic cardiomyopathy - Ejection Fraction 45-50% Continue lasix cardiology on board Stable Hx Atrial flutter with RVR and Sick sinus syndrome s/p dual chamber pacemaker - rate is controlled - Continue amiodarone and metoprolol - Will give coumadin 7.5 mg today - INR 1.6 today -check INR in am -Stable Pressure Skin ulcer - Morbid obesity - Bed bound and pt only stays in bed at home - wound care consulted - Continue Wound care Hypothyroidism - Continue levothyroxine Chronic normocytic anemia (anemia of chronic disease) - Hbg stable -monitor CBC VTE Prophylaxis - INR 1.6 this morning (>8 on admission, Vit K 10mg IV given in ER). Start heparin 5000 units Q8H SQ - continue warfarin. GI Prophylaxis - Pantoprazole 40 mg Code - Full no cardioversion Disposition Transfer to medical floor Waiting for approval to transfer to SNF or LTACH Consultants: Pulmonology PT/OT Presiding Steward Cardio Psych Wound Care Current Inpatient Medications: Current Inpatient Medications Medications (Trade) Dose Ordered Sig/Kelly Route Start Time Stop Time Status Last Admin Dose Admin Acetaminophen/ Empty Bag (Ofirmev IV/ Empty Iv Bag 100ml) 65 ml @ 260 mls/hr Q6H PRN IV 03/29/16 07:30 04/28/16 07:29 Albuterol (Ventolin Hfa Inhaler) 4 puffs Q6H INH 03/29/16 07:30 04/28/16 07:29 04/03/16 13:53 4 PUFFS Ipratropium [place] (Atrovent Hfa Inhaler) 4 puffs Q6R INH 03/29/16 09:00 04/28/16 08:59 04/03/16 13:53 4 PUFFS Heparin Sodium (Porcine) (Heparin Sq 5000 Unit/0.5ml) 5,000 unit Q8 SQ 03/30/16 16:00 04/29/16 15:59 04/03/16 13:30 5,000 UNIT Warfarin Sodium 5 mg 5 mg DAILY@16 PO 03/30/16 16:00 04/29/16 15:59 04/02/16 17:09 5 MG Furosemide/Syringe (Lasix Inj/ Syringe) 4 ml @ 4 mls/min BID IV 03/31/16 21:00 04/30/16 20:59 04/03/16 09:17 4 MLS/MIN Pantoprazole Sodium (Protonix Tab) 40 mg QAM PO 04/01/16 09:00 05/01/16 08:59 04/03/16 09:14 40 MG Atorvastatin Calcium (Lipitor Tab) 10 mg HS PO 03/31/16 21:00 04/30/16 20:59 04/02/16 21:27 10 MG Docusate Sodium (coLACE CAP) 100 mg BID PRN PO 03/31/16 11:00 04/30/16 10:59 Levothyroxine Sodium (Synthroid Tab) 100 mcg DAILYBB PO 04/01/16 06:00 05/01/16 05:59 04/03/16 06:44 100 MCG Multivitamins/ Minerals (Multivitamin W/ Minerals Tab) 1 tab DAILY PO 04/01/16 09:00 05/01/16 08:59 04/03/16 09:14 1 TAB Tamsulosin HCl (Flomax Cap) 0.4 mg HS PO 03/31/16 21:00 04/30/16 20:59 04/02/16 21:26 0.4 MG Amiodarone HCl (Cordarone Tab) 100 mg QAM PO 04/01/16 09:00 05/01/16 08:59 04/03/16 09:14 100 MG Metoprolol Succinate (Toprol Xl Tab) 25 mg QAM PO 04/01/16 09:00 05/01/16 08:59 04/03/16 09:16 25 MG Potassium/ Phosphorus/Sodium (Phospha 250 Neutral 155-852-130 Mg) 1 tab BID PO 04/01/16 20:00 05/01/16 20:59 04/03/16 09:14 1 TAB Potassium Chloride (Klor-Con Pwd) 20 meq BID PO 04/01/16 20:00 05/01/16 20:59 04/03/16 09:15 20 MEQ Sertraline HCl (Zoloft Tab) 50 mg QAM PO 04/02/16 08:00 05/02/16 08:59 04/03/16 09:14 50 MG Tramadol HCl (Ultram Tab) 50 mg Q6H PRN PO 04/03/16 02:15 05/03/16 02:14 04/03/16 02:33 50 MG
[2016-04-03] MEDS ORDERED: WARFARIN SOD 2.5 MG TAB PO ONE (17:00)
[2016-04-03] MEDS: ATORVASTATIN 10 MG TAB PO SCH (21:34)
[2016-04-03] MEDS: TAMSULOSIN HCL 0.4 MG CAP PO SCH (21:35)
[2016-04-04] VITALS (13 sets, daily range): BP systolic 118–138; BP diastolic 71–75; PULSE 59–97; TEMP 36.7–37.1; O2SAT 93–98
[2016-04-04] MEDS: ALBUTEROL HFA 8 GM INHALER INH SCH ×4 (01:44→19:34)
[2016-04-04] MEDS: IPRATROPIUM BROMIDE HFA INHALER INH SCH ×4 (01:44→19:34)
[2016-04-04] MEDS: LEVOTHYROXINE 100 MCG TAB PO SCH (06:25)
[2016-04-04] MEDS: HEPARIN SOD 5000 UNIT/0.5 ML CARP SQ SCH ×3 (06:30→21:22)
[2016-04-04 06:41] LABS: BASO % 0.3 %; BASO ABS # 0.02 K/uL (0-0.2); COMPLETE YES; EOS % 6.8 %; HEMATOCRIT 29.9 % (42-52); IG% 0.3 %; LYMPH ABS # 1.04 K/uL (1.2-3.4); MEAN CELL VOLUME 90.1 fL (80-100); MEAN CORPUSCULAR HEMOGLOBIN 27.1 pg (25-34); MEAN CORPUSCULAR HGB CONC 30.1 g/dl (32-36); MEAN PLATELET VOLUME 8.5 fL (7.4-10.4); MONO % 11.7 %; NEUT % 64.9 %; PLATELET COUNT 231 K/uL (130-400); RED BLOOD COUNT 3.32 M/uL (4.7-6.1); WHITE BLOOD COUNT 6.51 K/uL (4.8-10.8)
[2016-04-04 06:49] LABS: INR 1.6 (0.9-1.1)
[2016-04-04 07:26] LABS: BUN/CREATININE RATIO 30.7 (10-20); CALCIUM 8.8 mg/dl (8.5-10.1); CREATININE 0.81 mg/dl (0.60-1.40); MAGNESIUM 1.7 mg/dl (1.8-2.4); PHOSPHORUS 2.2 mg/dl (2.5-4.9); POTASSIUM 3.8 mmol/L (3.5-5.1)
[2016-04-04] MEDS: FUROSEMIDE INJ 40 MG in SYRINGE 0 ML IV SCH ×2 (08:12→21:08)
[2016-04-04] MEDS: PANTOprazole SOD 40 MG TAB PO SCH (08:13)
[2016-04-04] MEDS: AMIODARONE 200 MG TAB PO SCH (08:13)
[2016-04-04] MEDS: METOPROLOL SUCC 25MG EXT REL TAB PO SCH (08:13)
[2016-04-04] MEDS: CEROVITE ADV FORMULA TAB PO SCH (08:13)
[2016-04-04] MEDS: SERTRALINE HCL 50 MG TAB PO SCH (08:14)
[2016-04-04] MEDS: POTASSIUM CHLORIDE PWD 20 MEQ PACK PO SCH ×2 (08:15→21:10)
[2016-04-04] MEDS: POT PHOSPHATE MONOBASIC W/ SOD TAB PO SCH ×2 (08:16→21:09)
[2016-04-04] MEDS ORDERED: MAGNESIUM SULFATE 1GM / D5W 1 GM in PREMIXED IN D5W 100 ML IV ONE (10:00)
--- NOTE | 2016-04-04 13:09 | Progress Note ---
Medicine Progress Note Date & Time of Visit: Apr 04, 2016 at 13:06. Subjective Pt was seen and examined Looks very comfortable in bed with no distress Pt is watching TV Pt said that he is having less secretion Denies any chest pain, palpitation, dizziness Objective Last 8 Hrs Date Time Temp Pulse Resp B/P Pulse Ox O2 Delivery O2 Flow Rate FiO2 04/04/16 08:00 93 Trach Collar 15.0 40 04/04/16 07:38 36.7 59 20 138/74 97 04/04/16 07:38 72 18 95 Trach Collar 40 04/04/16 05:29 74 96 40 Physical Exam: General- obesity, no distress, comfortable Head- atraumatic Eyes- PERRL, EOMI, anicteric ENT- trach Neck- supple, no JVD Lungs-Coarse breath sound Heart- regular rhythm; no murmur, S1/S2 present Abdomen- normal bowel sounds, soft, obesity Extremities- + edema, no calf tenderness Neuro- alert, oriented, PERRL, EOMI Skin- warm & dry Laboratory Results: Last 24 Hours Test 04/04/16 06:30 White Blood Count 6.51 K/uL Red Blood Count 3.32 M/uL Hemoglobin 9.0 g/dL Hematocrit 29.9 % Mean Corpuscular Volume 90.1 fL Mean Corpuscular Hemoglobin 27.1 pg Mean Corpuscular Hemoglobin Concent 30.1 g/dl Platelet Count 231 K/uL Mean Platelet Volume 8.5 fL Neutrophils (%) (Auto) 64.9 % Lymphocytes (%) (Auto) 16.0 % Monocytes (%) (Auto) 11.7 % Eosinophils (%) (Auto) 6.8 % Basophils (%) (Auto) 0.3 % Neutrophils # (Auto) 4.23 K/uL Lymphocytes # (Auto) 1.04 K/uL Monocytes # (Auto) 0.76 K/uL Eosinophils # (Auto) 0.44 K/uL Basophils # (Auto) 0.02 K/uL RDW Standard Deviation 56.2 fL RDW Coefficient of Variation 17.4 % Immature Granulocyte % (Auto) 0.3 % Immature Granulocyte # (Auto) 0.02 K/uL Prothrombin Time 17.0 SECONDS Prothromb Time International Ratio 1.6 Sodium Level 141 mmol/L Potassium Level 3.8 mmol/L Chloride Level 94 mmol/L Carbon Dioxide Level 41 mmol/L Anion Gap 6.0 mmol/L Blood Urea Nitrogen 25 mg/dl Creatinine 0.81 mg/dl Est Creatinine Clear Calc Drug Dose 158.9 ml/min Estimated GFR () 112.7 Estimated GFR (Non- 97.3 BUN/Creatinine Ratio 30.7 Random Glucose 96 mg/dl Calcium Level 8.8 mg/dl Phosphorus Level 2.2 mg/dl Magnesium Level 1.7 mg/dl Assessment & Plan Acute on chronic hypoxic respiratory failure - obesity hypoventilation s/p tracheostomy Pt has not been using the BiPap at home because he is waiting for a piece Looks very comfortable on vent -failed CPAP trial 03/31 - pseudomonas on sputum cx possible colonization -Procalcitonin normal Zosyn was d/c by the ICU team Pulmonology consulted started pt on pulmozyme -Did well last night on Bipap - Received a call from the [facility] that they don't work with trach patient - ed case manager notified and Dr. Fontenot is awared. -Tolerated BIPAP well -No episode of arrhythmia and tachycardia - As per fuel cell assembler, recommended to continue BIPAP at night and during the day as much as tolerated - waiting for placement -Stable DEPRESSION Psych was consulted Zoloft Increased to 50mg denied any side effect continue zoloft Stable Metabolic encephalopathy - -CT head negative -Possible related to hypercapnia -Resolved Bacteremia - gram positive cocci on blood cx Possible contaamination Afebrile, no WBC, procalcitonin normal d/C vanco Continue monitor cbc Stable Urinary retention will monitor I/O - Right renal mass seen on CT February; -Follow with Dr. Persaud as an outpatient Idiopathic cardiomyopathy - Ejection Fraction 45-50% Continue lasix cardiology on board Stable Hx Atrial flutter with RVR and Sick sinus syndrome s/p dual chamber pacemaker - rate is controlled - Continue amiodarone and metoprolol - Will give coumadin 7.5 mg today - INR 1.6 today -check INR in am -Stable Pressure Skin ulcer - Morbid obesity - Bed bound and pt only stays in bed at home - wound care consulted - Continue Wound care Hypothyroidism - Continue levothyroxine Chronic normocytic anemia (anemia of chronic disease) - Hbg stable -monitor CBC VTE Prophylaxis - INR 1.6 this morning (>8 on admission, Vit K 10mg IV given in ER). Start heparin 5000 units Q8H SQ - continue warfarin. GI Prophylaxis - Pantoprazole 40 mg Code - Full no cardioversion Disposition Transfer to medical floor Waiting for approval to transfer to SNF or LTACH Consultants: Pulmonology PT/OT Websphere Architect Cardio Psych Wound Care Current Inpatient Medications: Current Inpatient Medications Medications (Trade) Dose Ordered Sig/Kelyl Route Start Time Stop Time Status Last Admin Dose Admin Acetaminophen/ Empty Bag (Ofirmev IV/ Empty Iv Bag 100ml) 65 ml @ 260 mls/hr Q6H PRN IV 03/29/16 07:30 04/28/16 07:29 Albuterol (Ventolin Hfa Inhaler) 4 puffs Q6H INH 03/29/16 07:30 04/28/16 07:29 04/04/16 07:37 4 PUFFS Ipratropium [place] (Atrovent Hfa Inhaler) 4 puffs Q6R INH 03/29/16 09:00 04/28/16 08:59 04/04/16 07:37 4 PUFFS Heparin Sodium (Porcine) (Heparin Sq 5000 Unit/0.5ml) 5,000 unit Q8 SQ 03/30/16 16:00 04/29/16 15:59 04/04/16 06:30 5,000 UNIT Warfarin Sodium 5 mg 5 mg DAILY@16 PO 03/30/16 16:00 04/29/16 15:59 04/03/16 15:50 5 MG Furosemide/Syringe (Lasix Inj/ Syringe) 4 ml @ 4 mls/min BID IV 03/31/16 21:00 04/30/16 20:59 04/04/16 08:12 4 MLS/MIN Pantoprazole Sodium (Protonix Tab) 40 mg QAM PO 04/01/16 09:00 05/01/16 08:59 04/04/16 08:13 40 MG Atorvastatin Calcium (Lipitor Tab) 10 mg HS PO 03/31/16 21:00 04/30/16 20:59 04/03/16 21:34 10 MG Docusate Sodium (coLACE CAP) 100 mg BID PRN PO 03/31/16 11:00 04/30/16 10:59 Levothyroxine Sodium (Synthroid Tab) 100 mcg DAILYBB PO 04/01/16 06:00 05/01/16 05:59 04/04/16 06:25 100 MCG Multivitamins/ Minerals (Multivitamin W/ Minerals Tab) 1 tab DAILY PO 04/01/16 09:00 05/01/16 08:59 04/04/16 08:13 1 TAB Tamsulosin HCl (Flomax Cap) 0.4 mg HS PO 03/31/16 21:00 04/30/16 20:59 04/03/16 21:35 0.4 MG Amiodarone HCl (Cordarone Tab) 100 mg QAM PO 04/01/16 09:00 05/01/16 08:59 04/04/16 08:13 100 MG Metoprolol Succinate (Toprol Xl Tab) 25 mg QAM PO 04/01/16 09:00 05/01/16 08:59 04/04/16 08:13 25 MG Potassium/ Phosphorus/Sodium (Phospha 250 Neutral 155-852-130 Mg) 1 tab BID PO 04/01/16 20:00 05/01/16 20:59 04/04/16 08:16 1 TAB Potassium Chloride (Klor-Con Pwd) 20 meq BID PO 04/01/16 20:00 05/01/16 20:59 04/04/16 08:15 20 MEQ Sertraline HCl (Zoloft Tab) 50 mg QAM PO 04/02/16 08:00 05/02/16 08:59 04/04/16 08:14 50 MG Tramadol HCl (Ultram Tab) 50 mg Q6H PRN PO 04/03/16 02:15 05/03/16 02:14 04/03/16 02:33 50 MG Heparin Sodium (Porcine) (Heparin 10 Unit/ ml 5 ml Flush) 5 ml PRN PRN FLUSH 04/04/16 08:30 05/04/16 08:29 04/04/16 12:24 5 ML Warfarin Sodium (Coumadin Tab) 2.5 mg DAILY@16 ONCE PO 04/04/16 16:00 04/04/16 16:01
[2016-04-04] MEDS ORDERED: WARFARIN SOD 2.5 MG TAB PO ONE (16:00)
[2016-04-04] MEDS: WARFARIN SOD 5 MG TAB PO SCH (16:00)
[2016-04-04] MEDS: ATORVASTATIN 10 MG TAB PO SCH (21:08)
[2016-04-04] MEDS: TAMSULOSIN HCL 0.4 MG CAP PO SCH (21:09)
[2016-04-05] VITALS (12 sets, daily range): BP systolic 122–136; BP diastolic 60–71; PULSE 60–74; TEMP 36.9–37.1; O2SAT 92–98
[2016-04-05] MEDS: ALBUTEROL HFA 8 GM INHALER INH SCH ×4 (02:21→21:48)
[2016-04-05] MEDS: IPRATROPIUM BROMIDE HFA INHALER INH SCH ×4 (02:21→21:48)
[2016-04-05] MEDS: LEVOTHYROXINE 100 MCG TAB PO SCH (06:26)
[2016-04-05 06:28] LABS: BASO % 0.1 %; BASO ABS # 0.01 K/uL (0-0.2); COMPLETE YES; EOS % 4.6 %; HEMATOCRIT 30.5 % (42-52); IG% 0.1 %; LYMPH % 16.4 %; MEAN CELL VOLUME 89.2 fL (80-100); MEAN CORPUSCULAR HEMOGLOBIN 27.2 pg (25-34); MEAN CORPUSCULAR HGB CONC 30.5 g/dl (32-36); MONO % 11.7 %; NEUT % 67.1 %; PLATELET COUNT 235 K/uL (130-400); RED BLOOD COUNT 3.42 M/uL (4.7-6.1); WHITE BLOOD COUNT 7.33 K/uL (4.8-10.8)
[2016-04-05] MEDS: HEPARIN SOD 5000 UNIT/0.5 ML CARP SQ SCH ×3 (06:28→21:52)
[2016-04-05 06:36] LABS: INR 1.7 (0.9-1.1); PROTHROMBIN TIME (PATIENT) 18.6 SECONDS (9.0-12.0)
[2016-04-05 06:57] LABS: CALCIUM 8.8 mg/dl (8.5-10.1)
[2016-04-05 07:05] LABS: CREATININE 0.91 mg/dl (0.60-1.40); POTASSIUM 3.8 mmol/L (3.5-5.1)
--- NOTE | 2016-04-05 07:12 | PROGRESS NOTE ---
DATE: 04/05/2016 The patient is stable this morning, tolerating BiPAP well. Secretions are decreased. He still is refusing general nursing care. He does not really give a reason for that except that he is fatigued. He is tolerating the pain medication for knee pain and general discomfort well. PHYSICAL EXAMINATION: VITAL SIGNS: Stable and he is afebrile. Oxygen saturation 96% on 40% FiO2 with the BiPAP. Blood pressure 135/71 last night. Last weight on 04/01/2016 was 176.5 kilograms. Trach site looks good. HEENT: Posterior pharynx is unremarkable with no thrush noted. HEART: Regular rate and rhythm. LUNGS: Reveal decreased breath sounds bilaterally. ABDOMEN: Soft. There is no tenderness. EXTREMITIES: He has +1 edema in the pretibial area. His CBC was stable yesterday. CO2 was in the 40-41 range on electrolytes within a BUN of 25, creatinine of 0.8, magnesium was low at 1.7. INR is 1.6. Overall, from a pulmonary standpoint, the patient is stable and comfortable. IMPRESSION: 1. Chronic respiratory failure secondary to hypoventilation syndrome, perhaps muscle weakness now. 2. Right renal mass. 3. Severe hypoventilation syndrome. 4. Atrial flutter with sick sinus syndrome, status post pacer implantation. RECOMMENDATIONS: Continue on the BiPAP. I would place him on an I of 16, E of [address] rate of 14 to see if we can bring down his CO2 just a little bit. Apparently, the [facility] does not work with trach patients. Ideally, the patient should be placed on a ventilator and perhaps placed in a long-term care facility for ventilator management. Increasing his activity, getting to physical therapy if he would agree would be helpful as well.
[2016-04-05] MEDS: METOPROLOL SUCC 25MG EXT REL TAB PO SCH (08:16)
[2016-04-05] MEDS: CEROVITE ADV FORMULA TAB PO SCH (08:16)
[2016-04-05] MEDS: AMIODARONE 200 MG TAB PO SCH (08:16)
[2016-04-05] MEDS: SERTRALINE HCL 50 MG TAB PO SCH (08:16)
[2016-04-05] MEDS: FUROSEMIDE INJ 40 MG in SYRINGE 0 ML IV SCH ×2 (08:16→21:45)
[2016-04-05] MEDS: POTASSIUM CHLORIDE PWD 20 MEQ PACK PO SCH ×2 (08:17→21:47)
[2016-04-05] MEDS: PANTOprazole SOD 40 MG TAB PO SCH (08:17)
[2016-04-05] MEDS: POT PHOSPHATE MONOBASIC W/ SOD TAB PO SCH ×2 (08:17→21:47)
[2016-04-05] MEDS: WARFARIN SOD 5 MG TAB PO SCH (15:39)
[2016-04-05] MEDS ORDERED: WARFARIN SOD 2.5 MG TAB PO ONE (17:00)
--- NOTE | 2016-04-05 19:28 | Progress Note ---
Medicine Progress Note Date & Time of Visit: Apr 05, 2016 at 19:22. Subjective Pt was seen and examined Lying in bed with no distress Pt kelly d that he feels ok denies any chest pain, palpitation he said that he is having more secretion Objective Last 8 Hrs Date Time Temp Pulse Resp B/P Pulse Ox O2 Delivery O2 Flow Rate FiO2 04/05/16 16:10 98 Trach Collar 15.0 40 04/05/16 15:51 37.1 60 16 129/66 95 Trach Collar 11.0 04/05/16 14:08 60 22 96 Trach Collar 40 Physical Exam: General- obesity, no distress, comfortable Head- atraumatic Eyes- PERRL, EOMI, anicteric ENT- trach Neck- supple, no JVD Lungs-Coarse breath sound Heart- regular rhythm; no murmur, S1/S2 present Abdomen- normal bowel sounds, soft, obesity Extremities- + edema, no calf tenderness Neuro- alert, oriented, PERRL, EOMI Skin- warm & dry Laboratory Results: Last 24 Hours Test 04/05/16 06:12 White Blood Count 7.33 K/uL Red Blood Count 3.42 M/uL Hemoglobin 9.3 g/dL Hematocrit 30.5 % Mean Corpuscular Volume 89.2 fL Mean Corpuscular Hemoglobin 27.2 pg Mean Corpuscular Hemoglobin Concent 30.5 g/dl Platelet Count 235 K/uL Mean Platelet Volume 9.0 fL Neutrophils (%) (Auto) 67.1 % Lymphocytes (%) (Auto) 16.4 % Monocytes (%) (Auto) 11.7 % Eosinophils (%) (Auto) 4.6 % Basophils (%) (Auto) 0.1 % Neutrophils # (Auto) 4.91 K/uL Lymphocytes # (Auto) 1.20 K/uL Monocytes # (Auto) 0.86 K/uL Eosinophils # (Auto) 0.34 K/uL Basophils # (Auto) 0.01 K/uL RDW Standard Deviation 57.0 fL RDW Coefficient of Variation 17.6 % Immature Granulocyte % (Auto) 0.1 % Immature Granulocyte # (Auto) 0.01 K/uL Prothrombin Time 18.6 SECONDS Prothromb Time International Ratio 1.7 Sodium Level 140 mmol/L Potassium Level 3.8 mmol/L Chloride Level 94 mmol/L Carbon Dioxide Level 43 mmol/L Anion Gap 3.0 mmol/L Blood Urea Nitrogen 24 mg/dl Creatinine 0.91 mg/dl Est Creatinine Clear Calc Drug Dose 141.4 ml/min Estimated GFR () 106.5 Estimated GFR (Non- 91.9 BUN/Creatinine Ratio 26.0 Random Glucose 95 mg/dl Calcium Level 8.8 mg/dl Assessment & Plan Acute on chronic hypoxic respiratory failure - obesity hypoventilation s/p tracheostomy Pt has not been using the BiPap at home because he is waiting for a piece Looks very comfortable on vent -failed CPAP trial 03/31 - pseudomonas on sputum cx possible colonization -Procalcitonin normal Zosyn was d/c by the ICU team Pulmonology consulted started pt on pulmozyme -Did well last night on Bipap - Received a call from the [facility] that they don't work with trach patient - oil field caser notified and Dr. Fontenot is awared. -Tolerated BIPAP well -No episode of arrhythmia and tachycardia - As per distribution analyst, recommended to continue BIPAP at night and during the day as much as tolerated - BIPAP setting adjusted as per distribution analyst - spoke to oil field caser about home hospice, if they cannot find placement for him - discussed with pt, he said that he is looking option such as hospice and agreed to speak with the palliative care team. - will consult palliative care DEPRESSION Psych was consulted Zoloft Increased to 50mg denied any side effect continue zoloft Stable Metabolic encephalopathy - -CT head negative -Possible related to hypercapnia -Resolved Bacteremia - gram positive cocci on blood cx Possible contaamination Afebrile, no WBC, procalcitonin normal d/C vanco Continue monitor cbc Stable Urinary retention will monitor I/O - Right renal mass seen on CT February; -Follow with Dr. Persaud as an outpatient Idiopathic cardiomyopathy - Ejection Fraction 45-50% Continue lasix cardiology on board Stable Hx Atrial flutter with RVR and Sick sinus syndrome s/p dual chamber pacemaker - rate is controlled - Continue amiodarone and metoprolol - Will give coumadin 7.5 mg today - INR 1.7 today -check INR in am -Stable Pressure Skin ulcer - Morbid obesity - Bed bound and pt only stays in bed at home - wound care consulted - Continue Wound care Hypothyroidism - Continue levothyroxine Chronic normocytic anemia (anemia of chronic disease) - Hbg stable -monitor CBC VTE Prophylaxis - INR 1.7 this morning (>8 on admission, Vit K 10mg IV given in ER). Start heparin 5000 units Q8H SQ - continue warfarin. GI Prophylaxis - Pantoprazole 40 mg Code - Full no cardioversion Disposition Transfer to medical floor Waiting for approval to transfer to SNF or LTACH Consult palliative care Consultants: Pulmonology PT/OT Senior Safety Support Manager Cardio Psych Wound Care Current Inpatient Medications: Current Inpatient Medications Medications (Trade) Dose Ordered Sig/Kelly Route Start Time Stop Time Status Last Admin Dose Admin Acetaminophen/ Empty Bag (Ofirmev IV/ Empty Iv Bag 100ml) 65 ml @ 260 mls/hr Q6H PRN IV 03/29/16 07:30 04/28/16 07:29 Albuterol (Ventolin Hfa Inhaler) 4 puffs Q6H INH 03/29/16 07:30 04/28/16 07:29 04/05/16 14:07 4 PUFFS Ipratropium [place] (Atrovent Hfa Inhaler) 4 puffs Q6R INH 03/29/16 09:00 04/28/16 08:59 04/05/16 14:07 4 PUFFS Heparin Sodium (Porcine) (Heparin Sq 5000 Unit/0.5ml) 5,000 unit Q8 SQ 03/30/16 16:00 04/29/16 15:59 04/05/16 13:06 5,000 UNIT Warfarin Sodium 5 mg 5 mg DAILY@16 PO 03/30/16 16:00 04/29/16 15:59 04/05/16 15:39 5 MG Furosemide/Syringe (Lasix Inj/ Syringe) 4 ml @ 4 mls/min BID IV 03/31/16 21:00 04/30/16 20:59 04/05/16 08:16 4 MLS/MIN Pantoprazole Sodium (Protonix Tab) 40 mg QAM PO 04/01/16 09:00 05/01/16 08:59 04/05/16 08:17 40 MG Atorvastatin Calcium (Lipitor Tab) 10 mg HS PO 03/31/16 21:00 04/30/16 20:59 04/04/16 21:08 10 MG Docusate Sodium (coLACE CAP) 100 mg BID PRN PO 03/31/16 11:00 04/30/16 10:59 04/05/16 15:39 100 MG Levothyroxine Sodium (Synthroid Tab) 100 mcg DAILYBB PO 04/01/16 06:00 05/01/16 05:59 04/05/16 06:26 100 MCG Multivitamins/ Minerals (Multivitamin W/ Minerals Tab) 1 tab DAILY PO 04/01/16 09:00 05/01/16 08:59 04/05/16 08:16 1 TAB Tamsulosin HCl (Flomax Cap) 0.4 mg HS PO 03/31/16 21:00 04/30/16 20:59 04/04/16 21:09 0.4 MG Amiodarone HCl (Cordarone Tab) 100 mg QAM PO 04/01/16 09:00 05/01/16 08:59 04/05/16 08:16 100 MG Metoprolol Succinate (Toprol Xl Tab) 25 mg QAM PO 04/01/16 09:00 05/01/16 08:59 04/05/16 08:16 25 MG Potassium/ Phosphorus/Sodium (Phospha 250 Neutral 155-852-130 Mg) 1 tab BID PO 04/01/16 20:00 05/01/16 20:59 04/05/16 08:17 1 TAB Potassium Chloride (Klor-Con Pwd) 20 meq BID PO 04/01/16 20:00 05/01/16 20:59 04/05/16 08:17 20 MEQ Sertraline HCl (Zoloft Tab) 50 mg QAM PO 04/02/16 08:00 05/02/16 08:59 04/05/16 08:16 50 MG Tramadol HCl (Ultram Tab) 50 mg Q6H PRN PO 04/03/16 02:15 05/03/16 02:14 04/03/16 02:33 50 MG Heparin Sodium (Porcine) (Heparin 10 Unit/ ml 5 ml Flush) 5 ml PRN PRN FLUSH 04/04/16 08:30 05/04/16 08:29 04/05/16 08:26 5 ML
[2016-04-05 20:24] LABS: INR 1.9 (0.9-1.1); PROTHROMBIN TIME (PATIENT) 20.5 SECONDS (9.0-12.0)
[2016-04-05] MEDS: ATORVASTATIN 10 MG TAB PO SCH (21:46)
[2016-04-05] MEDS: TAMSULOSIN HCL 0.4 MG CAP PO SCH (21:47)
[2016-04-06] VITALS (9 sets, daily range): BP systolic 117–132; BP diastolic 64–69; PULSE 59–70; TEMP 36.6–36.8; O2SAT 95–98
[2016-04-06] MEDS: ALBUTEROL HFA 8 GM INHALER INH SCH ×4 (01:48→22:15)
[2016-04-06] MEDS: IPRATROPIUM BROMIDE HFA INHALER INH SCH ×4 (01:48→22:14)
[2016-04-06] MEDS: LEVOTHYROXINE 100 MCG TAB PO SCH (06:51)
[2016-04-06] MEDS: HEPARIN SOD 5000 UNIT/0.5 ML CARP SQ SCH ×3 (06:53→22:05)
--- NOTE | 2016-04-06 07:00 | PROGRESS NOTE ---
DATE: 04/06/2016 The patient was comfortable this morning. He tolerated the BiPAP last night. He has been on a trach collar since 5:00. He does have an increase in the gold-yellow secretions. He states his breathing is fairly good. He is obviously weak. He has very poor inspiratory effort, has difficulty with a shoulder shrug, I think all related to atrophy from inactivity. PHYSICAL EXAMINATION: VITAL SIGNS: His vital signs are stable and he is afebrile. Blood pressure 122/60, oxygen saturation is 97% on 40% FiO2 by way of mask. I O 520 in, 2900 out. Nurses' notes reviewed. Social service notes reviewed. Medications noted. Trach site looks good with no erythema. HEART: Regular rhythm, occasional ectopic beat. LUNGS: Reveal decreased breath sounds. No crackles or rales noted. No wheezing noted. ABDOMEN: Soft and obese, nontender. EXTREMITIES: He has no cyanosis or clubbing. MEDICATIONS: Noted. LABORATORY DATA: INR was 1.9 yesterday, CO2 is elevated at 43 and electrolytes with a BUN of 24, creatinine of 0.9, magnesium was 1.7 on the 25th. IMPRESSION: 1. Respiratory failure, secondary to hypoventilation syndrome and obesity. 2. Right renal mass. 3. Atrial flutter with sick sinus syndrome, status post pacer implantation. RECOMMENDATIONS: 1. Continue on BiPAP as recommended with an I of 16, E of [address] rate of 14. That may help to improve his hypercapnia. 2. I believe an LTAC hospital would be exceptionally beneficial for this fellow. He could get good pulmonary care and his most needed exercise. I would continue with a strict weight-reduction diet. Follow the INR carefully. Overall, from a pulmonary standpoint, he is stable. [facility]
[2016-04-06 07:35] LABS: HEMATOCRIT 30.5 % (42-52); MEAN CELL VOLUME 88.7 fL (80-100); MEAN CORPUSCULAR HEMOGLOBIN 27.3 pg (25-34); MEAN CORPUSCULAR HGB CONC 30.8 g/dl (32-36); MEAN PLATELET VOLUME 8.6 fL (7.4-10.4); PLATELET COUNT 236 K/uL (130-400); RED BLOOD COUNT 3.44 M/uL (4.7-6.1); WHITE BLOOD COUNT 5.97 K/uL (4.8-10.8)
[2016-04-06 08:12] LABS: BUN/CREATININE RATIO 24.5 (10-20); CALCIUM 9.2 mg/dl (8.5-10.1); CREATININE 0.94 mg/dl (0.60-1.40); POTASSIUM 3.5 mmol/L (3.5-5.1)
[2016-04-06] MEDS: FUROSEMIDE INJ 40 MG in SYRINGE 0 ML IV SCH ×3 (08:26→20:00)
[2016-04-06] MEDS: AMIODARONE 200 MG TAB PO SCH (08:26)
[2016-04-06] MEDS: PANTOprazole SOD 40 MG TAB PO SCH (08:27)
[2016-04-06] MEDS: CEROVITE ADV FORMULA TAB PO SCH (08:27)
[2016-04-06] MEDS: SERTRALINE HCL 50 MG TAB PO SCH (08:27)
[2016-04-06] MEDS: POT PHOSPHATE MONOBASIC W/ SOD TAB PO SCH ×2 (08:27→19:55)
[2016-04-06] MEDS: POTASSIUM CHLORIDE PWD 20 MEQ PACK PO SCH ×2 (08:27→19:54)
[2016-04-06] MEDS: METOPROLOL SUCC 25MG EXT REL TAB PO SCH (08:27)
--- NOTE | 2016-04-06 13:53 | Palliative Care Consultation ---
Consultation Date of Consultation: Apr 06, 2016. Requesting Physician: Dr. Colin Attending Physician: Dr. Mccarthy Reason for Consultation: Goals of care History of Present Illness This 60 year old male patient presented to the ED eight days ago with respiratory failure from home. This man has a very extensive past medical history with frequent admissions for this chronic respiratory failure related to hypoventilation. He underwent tracheostomy and pacemaker placement back in January and has since been very non-compliant at home with his Bipap. Also, apparently the Bipap that was sent to his house was the incorrect one, per his . When the patient came in, he was on a garbage back and was in very poor hygienic condition. The seems to be having a difficult time managing this patient's care at home. Palliative care consulted to discuss goals of care and discharge options. I met with the patient and his , Tammy, in the room. The patient was awake , alert and oriented x4, sitting up in bed with trach collar on in no apparent distress. He just got done filling out his POA paperwork and having it notarized. We had a long discussion about goals of care. Tammy said that she is having a hard time managing the patient at home by herself as she has health issues of her own. Their first choice is for the patient to go to [facility] ([facility]), but the was also asking about home hospice as the ultimate goal is for the patient to be at home. I explained the hospice philosophy and their role. the patient said, "I don't want hospice, then. I want everything done." HE stated that he still wants to be a full code/level and wants all aggressive treatment. He is not agreeable to hospice whatsoever. They do currently have [facility] at home, but he needs 24-hour care. The patient's living will that he just completed, though, does stated he would not want a feeding tube and if there was brain , he would not want to be "living on machines." Past Medical/Surgical History Medical History: Idiopathic cardiomyopathy - Ejection Fraction 45-50%. Morbid obesity Obesity hypoventilation Chronic respiratory failure on home O2 - s/p tracheostomy, refusal of BiPAP DVT on chronic anticoagulation (warfarin) Atrial flutter Sick sinus syndrome s/p dual chamber pacemaker Chronic normocytic anemia (anemia of chronic disease) Hypothyroidism MRSA and Pseudomonas (resistant to Levaquin, ciprofloxacin and aztreonam) from previous sputum trach washings BPH with indwelling catheter Severe chronic lymphedema Surgical History: Tracheostomy: Tracheostomy with excision of thyroglossal duct cyst 02/2016 Pacemaker implantation - dual chamber: 01/1016 Ventral Hernia repair Social History Smoking Status: Current Some Day Smoker History of Alcohol Use: No Drug Use: none Marital Status: Housing Status: lives with family, assisted living Occupation Status: disabled Review of Systems Constitutional: No chills, No fever Respiratory: + cough, + dyspnea on exertion, No dyspnea at rest Cardiac: + edema, No chest pain Abdomen: No constipation, No diarrhea, No nausea, No pain, No vomiting Male : No problem reported (davey catheter in place) Allergies Coded Allergies: Cefepime (Verified Allergy, Intermediate, RASH, 03/29/16) PER DR. LEVY Latex (Verified Allergy, Intermediate, DERMITITIS, 03/29/16) Aztreonam (Verified Allergy, Mild, RASH, 03/29/16) Medications Current Inpatient Medications Medications (Trade) Dose Ordered Sig/Kelly Route Start Time Stop Time Status Last Admin Dose Admin Acetaminophen/ Empty Bag (Ofirmev IV/ Empty Iv Bag 100ml) 65 ml @ 260 mls/hr Q6H PRN IV 03/29/16 07:30 04/28/16 07:29 Albuterol (Ventolin Hfa Inhaler) 4 puffs Q6H INH 03/29/16 07:30 04/28/16 07:29 04/06/16 08:08 4 PUFFS Ipratropium Barnhart (Atrovent Hfa Inhaler) 4 puffs Q6R INH 03/29/16 09:00 04/28/16 08:59 04/06/16 08:08 4 PUFFS Heparin Sodium (Porcine) (Heparin Sq 5000 Unit/0.5ml) 5,000 unit Q8 SQ 03/30/16 16:00 04/29/16 15:59 04/06/16 06:53 5,000 UNIT Warfarin Sodium 5 mg 5 mg DAILY@16 PO 03/30/16 16:00 04/29/16 15:59 04/05/16 15:39 5 MG Furosemide/Syringe (Lasix Inj/ Syringe) 4 ml @ 4 mls/min BID IV 03/31/16 21:00 04/30/16 20:59 04/06/16 08:26 4 MLS/MIN Pantoprazole Sodium (Protonix Tab) 40 mg QAM PO 04/01/16 09:00 05/01/16 08:59 04/06/16 08:27 40 MG Atorvastatin Calcium (Lipitor Tab) 10 mg HS PO 03/31/16 21:00 04/30/16 20:59 04/05/16 21:46 10 MG Docusate Sodium (coLACE CAP) 100 mg BID PRN PO 03/31/16 11:00 04/30/16 10:59 04/05/16 15:39 100 MG Levothyroxine Sodium (Synthroid Tab) 100 mcg DAILYBB PO 04/01/16 06:00 05/01/16 05:59 04/06/16 06:51 100 MCG Multivitamins/ Minerals (Multivitamin W/ Minerals Tab) 1 tab DAILY PO 04/01/16 09:00 05/01/16 08:59 04/06/16 08:27 1 TAB Tamsulosin HCl (Flomax Cap) 0.4 mg HS PO 03/31/16 21:00 04/30/16 20:59 04/05/16 21:47 0.4 MG Amiodarone HCl (Cordarone Tab) 100 mg QAM PO 04/01/16 09:00 05/01/16 08:59 04/06/16 08:26 100 MG Metoprolol Succinate (Toprol Xl Tab) 25 mg QAM PO 04/01/16 09:00 05/01/16 08:59 04/06/16 08:27 25 MG Potassium/ Phosphorus/Sodium (Phospha 250 Neutral 155-852-130 Mg) 1 tab BID PO 04/01/16 20:00 05/01/16 20:59 04/06/16 08:27 1 TAB Potassium Chloride (Klor-Con Pwd) 20 meq BID PO 04/01/16 20:00 05/01/16 20:59 04/06/16 08:27 20 MEQ Sertraline HCl (Zoloft Tab) 50 mg QAM PO 04/02/16 08:00 05/02/16 08:59 04/06/16 08:27 50 MG Tramadol HCl (Ultram Tab) 50 mg Q6H PRN PO 04/03/16 02:15 05/03/16 02:14 04/03/16 02:33 50 MG Heparin Sodium (Porcine) (Heparin 10 Unit/ ml 5 ml Flush) 5 ml PRN PRN FLUSH 04/04/16 08:30 05/04/16 08:29 04/06/16 08:26 5 ML Physical Exam Date Time Temp Pulse Resp B/P Pulse Ox O2 Delivery O2 Flow Rate FiO2 04/06/16 08:27 36.8 60 20 132/69 97 Trach Collar 11.0 04/06/16 08:11 70 16 95 Trach Collar 40 04/06/16 08:00 97 Trach Collar 11.0 40 04/06/16 01:49 68 16 97 BiPAP/CPAP 40 04/06/16 01:45 62 97 40 04/06/16 00:00 BiPAP 40 04/05/16 23:37 36.9 62 18 122/60 94 BiPAP 04/05/16 22:06 74 96 40 04/05/16 20:07 64 24 96 Trach Collar 40 04/05/16 16:10 98 Trach Collar 15.0 40 04/05/16 15:51 37.1 60 16 129/66 95 Trach Collar 11.0 04/05/16 14:08 60 22 96 Trach Collar 40 General Appearance: no apparent distress Neck: + pertinent finding (tracheostomy present) Respiratory: no respiratory distress, + decreased breath sounds, + rhonchi ( coarse throughout) Cardiovascular: regular rate, rhythm, + pertinent finding (+4 pitting edema of bilateral lower extremities) Abdomen: normal bowel sounds, non tender, soft, + pertinent finding (obese abdomen) Neurologic/Psychiatric: alert, normal mood/affect, oriented x 3 Skin: + pallor Laboratory Results Last 24 Hours Test 04/05/16 19:53 04/06/16 07:18 Prothrombin Time 20.5 SECONDS Prothromb Time International Ratio 1.9 White Blood Count 5.97 K/uL Red Blood Count 3.44 M/uL Hemoglobin 9.4 g/dL Hematocrit 30.5 % Mean Corpuscular Volume 88.7 fL Mean Corpuscular Hemoglobin 27.3 pg Mean Corpuscular Hemoglobin Concent 30.8 g/dl RDW Standard Deviation 56.3 fL RDW Coefficient of Variation 17.6 % Platelet Count 236 K/uL Mean Platelet Volume 8.6 fL Sodium Level 139 mmol/L Potassium Level 3.5 mmol/L Chloride Level 93 mmol/L Carbon Dioxide Level 41 mmol/L Anion Gap 5.0 mmol/L Blood Urea Nitrogen 23 mg/dl Creatinine 0.94 mg/dl Est Creatinine Clear Calc Drug Dose 136.9 ml/min Estimated GFR () 102.4 Estimated GFR (Non- 88.4 BUN/Creatinine Ratio 24.5 Random Glucose 112 mg/dl Calcium Level 9.2 mg/dl Assessment & Plan Palliative Performance Scale: 30 % (bed-bound) Problem list: Acute on chronic hypoxic respiratory failure obesity hypoventilation s/p tracheostomy Depression Metabolic encephalopathy Bacteremia Urinary retention Idiopathic cardiomyopathy- Ejection Fraction 45-50% Hx Atrial flutter with RVR and Sick sinus syndrome s/p dual chamber pacemaker Pressure Skin ulcer Hypothyroidism Chronic normocytic anemia (anemia of chronic disease) Goals of care Palliative care plan: Patient wants to go to [facility], but is willing to go home with home health (not hospice). However, I still fear that this patient's care will be too much to manage at home. said she wants some help finding 24-hour caregivers. I will speak with case management about this, but discharge planning at this point is very uncertain. Thank you very much for allowing me to participate in the care of this patient.
[2016-04-06] MEDS ORDERED: BISACODYL 5 MG TABEC PO ONE (15:15)
[2016-04-06] MEDS ORDERED: BISACODYL 5 MG TABEC PO PRN (15:15)
[2016-04-06] MEDS: POLYETHYLENE (MIRALAX) 17 GM PACK PO SCH (16:17)
[2016-04-06] MEDS: WARFARIN SOD 5 MG TAB PO SCH (16:19)
[2016-04-06] MEDS: DOCUSATE SODIUM 100 MG CAP PO SCH (19:55)
[2016-04-06] MEDS: TAMSULOSIN HCL 0.4 MG CAP PO SCH (19:56)
[2016-04-06] MEDS: ATORVASTATIN 10 MG TAB PO SCH (19:56)
--- NOTE | 2016-04-06 19:56 | Progress Note ---
Internal Med Progress Note Date of Service: Apr 06, 2016. Provider Documentation: SUBJECTIVE: offers no complain , on trach collar was on Bipap last night continue to have increased secretion at the trach site no fever or chills OBJECTIVE: Vital Signs-as noted below Exam: General- obesity, no distress, comfortable Head- atraumatic Eyes- PERRL, EOMI, anicteric ENT- trach Neck- supple, no JVD Lungs-Coarse breath sound Heart- regular rhythm; no murmur, S1/S2 present Abdomen- normal bowel sounds, soft, obesity Extremities- + edema, no calf tenderness Neuro- alert, oriented, PERRL, EOMI Skin- warm & dry Lab data as noted below. ASSESSMENT & PLAN: Acute on chronic hypoxic respiratory failure - obesity hypoventilation s/p tracheostomy - pseudomonas on sputum cx possible colonization -Procalcitonin normal Zosyn was d/c by the ICU team Pulmonology consulted started pt on Pulmozyme -Did well last night on Bipap - As per marine insurance claim examiner, recommended to continue BIPAP at night and during the day as much as tolerated - BIPAP setting adjusted as per marine insurance claim examiner will need placement -SNF vs LTAC - spoke to pillowcase cutter about home hospice, if they cannot find placement for him - discussed with pt, he said that he is looking option such as hospice and agreed to speak with the palliative care team. - palliative care consulted ,appreciate input DEPRESSION Psych was consulted Zoloft Increased to 50mg PO daily Metabolic encephalopathy - -resolved, awake and alert , mental status improved to baseline -CT head negative -Possible related to hypercapnia - Bacteremia - gram positive cocci on blood cx Possible contamination Afebrile, no WBC, procalcitonin normal d/C vanco Urinary retention will monitor I/O - Right renal mass seen on CT February; -Follow with Dr. Persaud as an outpatient Idiopathic cardiomyopathy - Ejection Fraction 45-50% Continue lasix cardiology on board Stable Hx Atrial flutter with RVR and Sick sinus syndrome s/p dual chamber pacemaker - rate is controlled - Continue amiodarone and metoprolol -on Coumadin Pressure Skin ulcer - Morbid obesity - Bed bound and pt only stays in bed at home - wound care consulted - Continue Wound care Hypothyroidism - Continue levothyroxine Chronic normocytic anemia (anemia of chronic disease) - Hbg stable -monitor CBC VTE Prophylaxis - continue warfarin. GI Prophylaxis - Pantoprazole 40 mg Code - Full no cardioversion Disposition Waiting for approval to transfer to SNF or LTACH Consulted palliative care Vital Signs: Date Time Temp Pulse Resp B/P Pulse Ox O2 Delivery O2 Flow Rate FiO2 04/07/16 16:31 36.4 58 20 116/58 93 04/07/16 08:19 36.7 60 20 132/67 96 Trach Collar 04/07/16 08:00 97 Trach Collar 11.0 40 04/07/16 00:50 36.7 60 20 137/57 98 Trach Collar 11.0 40 04/07/16 00:00 Trach Collar 11.0 40 04/06/16 22:20 60 95 40 04/06/16 20:00 Trach Collar 11.0 40 Lab Results:
[2016-04-07 00:50] VITALS: BP 137/57; PULSE 60; TEMP 36.7; O2SAT 98
[2016-04-07] MEDS: HEPARIN SOD 5000 UNIT/0.5 ML CARP SQ SCH ×3 (05:02→20:27)
[2016-04-07] MEDS: IPRATROPIUM BROMIDE HFA INHALER INH SCH ×3 (05:19→20:19)
[2016-04-07] MEDS: LEVOTHYROXINE 100 MCG TAB PO SCH (05:19)
[2016-04-07] MEDS: ALBUTEROL HFA 8 GM INHALER INH SCH ×3 (05:19→20:20)
[2016-04-07 08:00] VITALS: O2SAT 97
[2016-04-07] MEDS: SERTRALINE HCL 50 MG TAB PO SCH (08:00)
[2016-04-07] MEDS: POTASSIUM CHLORIDE PWD 20 MEQ PACK PO SCH ×2 (08:00→20:00)
[2016-04-07] MEDS: POLYETHYLENE (MIRALAX) 17 GM PACK PO SCH (08:00)
[2016-04-07] MEDS: PANTOprazole SOD 40 MG TAB PO SCH (08:00)
[2016-04-07] MEDS: POT PHOSPHATE MONOBASIC W/ SOD TAB PO SCH ×2 (08:00→20:21)
[2016-04-07] MEDS: AMIODARONE 200 MG TAB PO SCH (08:00)
[2016-04-07 08:19] VITALS: BP 132/67; PULSE 60; TEMP 36.7; O2SAT 96
[2016-04-07] MEDS: FUROSEMIDE INJ 40 MG in SYRINGE 0 ML IV SCH ×2 (08:40→20:00)
[2016-04-07] MEDS: METOPROLOL SUCC 25MG EXT REL TAB PO SCH (08:40)
[2016-04-07] MEDS: CEROVITE ADV FORMULA TAB PO SCH (08:40)
[2016-04-07] MEDS: DOCUSATE SODIUM 100 MG CAP PO SCH ×2 (11:19→20:21)
[2016-04-07 16:02] VITALS: O2SAT 98
[2016-04-07] MEDS: WARFARIN SOD 5 MG TAB PO SCH (16:27)
[2016-04-07 16:31] VITALS: BP 116/58; PULSE 58; TEMP 36.4; O2SAT 93
--- NOTE | 2016-04-07 19:23 | Progress Note ---
Internal Med Progress Note Date of Service: Apr 07, 2016. Provider Documentation: SUBJECTIVE: offers no complain , on trach collar watching TV able to communicate with writing awake and alert , no sign of discomfort pt is counselled to use Bipap at night to prevent Co2 retention /respiratory failure waiting for placement in LTAC concern regarding the distance of the facility aware that is unable to take care of him at home asking about option for getting more help at home -pt is updated given the complexity of his medical problem returning home can lead to life threatening consequences LTAC will be best possible option for him pt not interested in Palliative care /hospice OBJECTIVE: Vital Signs-as noted below Exam: General- morbidly obese, no distress, comfortable Head- atraumatic Eyes- PERRL, EOMI, anicteric ENT- trach collar present Lungs-Coarse breath sound Heart- regular rhythm; no murmur, S1/S2 present Abdomen- normal bowel sounds, soft, obesity Extremities- severe bilateral lymphedema with venous stasis changes , pt has multiple pressure sores , skin breakdown on back , refused to be turned by nursing for skin care Neuro- no focal neurological deficit alert, oriented, PERRL, EOMI Lab data as noted below. ASSESSMENT & PLAN: Acute on chronic hypoxic respiratory failure - obesity hypoventilation s/p tracheostomy - pseudomonas on sputum cx possible colonization -Procalcitonin normal Zosyn D/endy Pulmonology consulted started pt on Pulmozyme - As per vinyl dipper, recommended to continue BIPAP at night and during the day as much as tolerated - BIPAP setting adjusted as per vinyl dipper -pt has been very poorly complaint with BiPap will need placement -SNF vs LTAC - spoke to director of casework department about home hospice, if they cannot find placement for him - palliative care consulted ,appreciate input pt is not interested in Hospice /palliative care yet given complexity of his medical needs will need LTAC placement was denied to [facility] [place] by his insurance referral made to another LTAC awaiting approval DEPRESSION Psych was consulted Zoloft Increased to 50mg PO daily Metabolic encephalopathy - due to hypercapnia /respiratory failure -resolved, awake and alert , mental status improved to baseline -CT head negative -pt is counselled over and over again for compliance with Bipap at night Urinary retention will monitor I/O - Right renal mass seen on CT February; -Follows with Dr. Persaud as an outpatient Idiopathic cardiomyopathy /with CHF chronic diastolic dysfunction Ejection Fraction 45-50% vol status at baseline Change Lasix to PO 40 mg BID cardiology has been following Hx Atrial flutter with RVR and Sick sinus syndrome s/p dual chamber pacemaker - rate is controlled - Continue amiodarone and metoprolol -on Coumadin PRESSURE ULCER : - Morbid obesity/bed bound -has multiple skin break down -pt has been refusing to be turned by nursing to provide skin care - wound care consulted- Hypothyroidism - Continue levothyroxine Chronic normocytic anemia (anemia of chronic disease) - Hbg stable -monitor CBC VTE Prophylaxis - continue warfarin. GI Prophylaxis - Pantoprazole 40 mg Code - Full no cardioversion Disposition Waiting for approval to transfer to LTAC Vital Signs: Date Time Temp Pulse Resp B/P Pulse Ox O2 Delivery O2 Flow Rate FiO2 04/08/16 09:15 67 04/08/16 08:05 Trach Collar 04/08/16 07:59 37.1 58 130/73 99 Trach Collar 04/08/16 05:32 60 96 40 04/08/16 01:50 71 97 40 04/08/16 00:03 37.2 60 20 106/68 94 04/08/16 00:01 BiPAP Trach Collar 04/07/16 22:58 72 97 40 04/07/16 16:31 36.4 58 20 116/58 93 04/07/16 16:02 98 Trach Collar 11.0 40
[2016-04-07] MEDS: TAMSULOSIN HCL 0.4 MG CAP PO SCH (20:20)
[2016-04-07] MEDS: ATORVASTATIN 10 MG TAB PO SCH (20:21)
[2016-04-07 22:58] VITALS: PULSE 72; O2SAT 97
[2016-04-08] VITALS (9 sets, daily range): BP systolic 106–130; BP diastolic 68–73; PULSE 58–73; TEMP 37–37.2; O2SAT 94–99
[2016-04-08] MEDS: IPRATROPIUM BROMIDE HFA INHALER INH SCH ×5 (00:11→18:27)
[2016-04-08] MEDS: ALBUTEROL HFA 8 GM INHALER INH SCH ×5 (00:11→18:27)
[2016-04-08] MEDS: LEVOTHYROXINE 100 MCG TAB PO SCH (06:26)
[2016-04-08] MEDS: HEPARIN SOD 5000 UNIT/0.5 ML CARP SQ SCH ×3 (06:29→20:21)
[2016-04-08] MEDS: DOCUSATE SODIUM 100 MG CAP PO SCH ×2 (09:00→20:15)
[2016-04-08] MEDS: METOPROLOL SUCC 25MG EXT REL TAB PO SCH (09:00)
[2016-04-08] MEDS: CEROVITE ADV FORMULA TAB PO SCH (09:00)
[2016-04-08] MEDS: SERTRALINE HCL 50 MG TAB PO SCH (09:00)
[2016-04-08] MEDS: AMIODARONE 200 MG TAB PO SCH (09:02)
[2016-04-08] MEDS: PANTOprazole SOD 40 MG TAB PO SCH (09:03)
[2016-04-08] MEDS: POTASSIUM CHLORIDE PWD 20 MEQ PACK PO SCH ×2 (09:03→20:14)
[2016-04-08] MEDS: POT PHOSPHATE MONOBASIC W/ SOD TAB PO SCH ×2 (09:04→20:16)
[2016-04-08] MEDS: POLYETHYLENE (MIRALAX) 17 GM PACK PO SCH (09:07)
[2016-04-08] MEDS: FUROSEMIDE INJ 40 MG in SYRINGE 0 ML IV SCH (09:10)
[2016-04-08] MEDS ORDERED: NURSING DECISION MEDICATION ORDER SCH (15:00)
[2016-04-08] MEDS ORDERED: MICONAZOLE NITRATE POWDER 43 GM EXT PRN (15:15)
[2016-04-08] MEDS: WARFARIN SOD 5 MG TAB PO SCH (16:03)
[2016-04-08] MEDS: FUROSEMIDE 40 MG TAB PO SCH (18:27)
[2016-04-08] MEDS: TAMSULOSIN HCL 0.4 MG CAP PO SCH (20:15)
[2016-04-08] MEDS: ATORVASTATIN 10 MG TAB PO SCH (20:15)
--- NOTE | 2016-04-08 23:10 | Progress Note ---
Internal Med Progress Note Date of Service: Apr 08, 2016. Provider Documentation: SUBJECTIVE: offers no complain remains in trach collar continues to have thick secretions OBJECTIVE: Vital Signs-as noted below Exam: General- morbidly obese, no distress, comfortable Head- atraumatic Eyes- PERRL, EOMI, anicteric ENT- trach collar present Lungs-Coarse breath sound Heart- regular rhythm; no murmur, S1/S2 present Abdomen- normal bowel sounds, soft, obesity Extremities- severe bilateral lymphedema with venous stasis changes , pt has multiple pressure sores , skin breakdown on back , refused to be turned by nursing for skin care Neuro- no focal neurological deficit alert, oriented, PERRL, EOMI Lab data as noted below. ASSESSMENT & PLAN: Acute on chronic hypoxic respiratory failure - obesity hypoventilation s/p tracheostomy - pseudomonas on sputum cx possible colonization -Procalcitonin normal Zosyn D/endy Pulmonology consulted started pt on Pulmozyme - As per hris analyst, recommended to continue BIPAP at night and during the day as much as tolerated - BIPAP setting adjusted as per hris analyst -pt has been very poorly complaint with BiPap will need placement -SNF vs LTAC - spoke to rifle case repairer about home hospice, if they cannot find placement for him - palliative care consulted ,appreciate input pt is not interested in Hospice /palliative care yet given complexity of his medical needs will need LTAC placement was denied to [facility] in [place] by his insurance referral made to another LTAC awaiting approval DEPRESSION Psych was consulted Zoloft Increased to 50mg PO daily Metabolic encephalopathy - due to hypercapnia /respiratory failure -resolved, awake and alert , mental status improved to baseline -CT head negative -pt is counselled over and over again for compliance with Bipap at night Urinary retention will monitor I/O - Right renal mass seen on CT February; -Follows with Dr. Persaud as an outpatient Idiopathic cardiomyopathy /with CHF chronic diastolic dysfunction Ejection Fraction 45-50% vol status at baseline Change Lasix to PO 40 mg BID cardiology has been following Hx Atrial flutter with RVR and Sick sinus syndrome s/p dual chamber pacemaker - rate is controlled - Continue amiodarone and metoprolol -on Coumadin PRESSURE ULCER : - Morbid obesity/bed bound -has multiple skin break down -pt has been refusing to be turned by nursing to provide skin care - wound care consulted- Hypothyroidism - Continue levothyroxine Chronic normocytic anemia (anemia of chronic disease) - Hbg stable -monitor CBC VTE Prophylaxis - continue warfarin. GI Prophylaxis - Pantoprazole 40 mg Code - Full no cardioversion Disposition Waiting for approval to transfer to LTAC Vital Signs: Date Time Temp Pulse Resp B/P Pulse Ox O2 Delivery O2 Flow Rate FiO2 04/09/16 20:00 Trach Collar 10.0 40 04/09/16 16:00 Room Air 04/09/16 15:13 36.6 60 20 108/62 94 Room Air 04/09/16 08:45 37.2 58 18 138/69 95 Trach Collar 04/09/16 08:00 Room Air 04/09/16 05:20 60 95 40 04/09/16 01:55 60 96 40 04/09/16 00:42 37.3 60 20 124/71 97 Trach Collar 10.0 04/09/16 00:00 97 BiPAP 40 04/08/16 23:47 73 97 40 04/08/16 22:58 68 96 40
[2016-04-09] VITALS (7 sets, daily range): BP systolic 108–138; BP diastolic 62–71; PULSE 58–60; TEMP 36.6–37.3; O2SAT 94–97
[2016-04-09] MEDS: IPRATROPIUM BROMIDE HFA INHALER INH SCH ×4 (06:00→17:49)
[2016-04-09] MEDS: ALBUTEROL HFA 8 GM INHALER INH SCH ×4 (06:00→17:49)
[2016-04-09] MEDS: LEVOTHYROXINE 100 MCG TAB PO SCH (07:47)
[2016-04-09] MEDS: HEPARIN SOD 5000 UNIT/0.5 ML CARP SQ SCH ×3 (07:49→22:27)
[2016-04-09] MEDS: POLYETHYLENE (MIRALAX) 17 GM PACK PO SCH (08:00)
[2016-04-09] MEDS: CEROVITE ADV FORMULA TAB PO SCH (08:10)
[2016-04-09] MEDS: POT PHOSPHATE MONOBASIC W/ SOD TAB PO SCH ×2 (08:10→20:00)
[2016-04-09] MEDS: SERTRALINE HCL 50 MG TAB PO SCH (08:10)
[2016-04-09] MEDS: METOPROLOL SUCC 25MG EXT REL TAB PO SCH (08:11)
[2016-04-09] MEDS: AMIODARONE 200 MG TAB PO SCH (08:11)
[2016-04-09] MEDS: DOCUSATE SODIUM 100 MG CAP PO SCH ×2 (08:11→19:59)
[2016-04-09] MEDS: POTASSIUM CHLORIDE PWD 20 MEQ PACK PO SCH ×2 (08:11→19:58)
[2016-04-09] MEDS: PANTOprazole SOD 40 MG TAB PO SCH (08:11)
[2016-04-09] MEDS: FUROSEMIDE 40 MG TAB PO SCH ×2 (08:12→16:42)
--- NOTE | 2016-04-09 11:00 | Psychiatric Progress Notes ---
Psychiatric Progress Note Date of Service Apr 09, 2016. Notes ID: Patient reviewed with liaison nurse. Interim progress reviewed. Still awaiting placement. CC: "I didn't refuse to see her" written/vocalized as able to with trach HPI: continues to deny depression, tolerating Zoloft, QTc improved slightly. Patient reportedly more resistant to being turned, didn't feel like spending time with wound nurse. ROS: secretions/suctioned, no GI c/o MSE: alert, affect appears calm yet spontaneous, answers questions appropriately , continues to deny SI/HI. No evidence of psychosis. 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 Patient ultimately continues to want managed by primary medical team rather than psychiatry. Liaison to follow.
[2016-04-09] MEDS: WARFARIN SOD 5 MG TAB PO SCH (16:41)
[2016-04-09] MEDS: ATORVASTATIN 10 MG TAB PO SCH (19:59)
[2016-04-09] MEDS: TAMSULOSIN HCL 0.4 MG CAP PO SCH (20:01)
--- NOTE | 2016-04-09 22:30 | Progress Note ---
Internal Med Progress Note Date of Service: Apr 09, 2016. Provider Documentation: SUBJECTIVE: pt allowed to have wound care done by Nursing and wound care team counselled importance of turning and wound care to prevent infection and new break down of skin on tach collar using CPAP at night intermittently OBJECTIVE: Vital Signs-as noted below Exam: General- morbidly obese, no distress, comfortable Head- atraumatic Eyes- PERRL, EOMI, anicteric ENT- trach collar present Lungs-Coarse breath sound Heart- regular rhythm; no murmur, S1/S2 present Abdomen- normal bowel sounds, soft, obesity Extremities- severe bilateral lymphedema with venous stasis changes , pt has multiple pressure sores , skin breakdown on back , refused to be turned by nursing for skin care Neuro- no focal neurological deficit alert, oriented, PERRL, EOMI Lab data as noted below. ASSESSMENT & PLAN: Acute on chronic hypoxic respiratory failure - obesity hypoventilation s/p tracheostomy - pseudomonas on sputum cx possible colonization -Procalcitonin normal Zosyn D/endy Pulmonology consulted started pt on Pulmozyme - As per night guard, recommended to continue BIPAP at night and during the day as much as tolerated - BIPAP setting adjusted as per night guard -pt has been very poorly complaint with BiPap will need placement -SNF vs LTAC - palliative care consulted ,appreciate input pt is not interested in Hospice /palliative care yet given complexity of his medical needs will need LTAC placement was [facility] to [facility] in [place] by his insurance referral made to another LTAC awaiting approval DEPRESSION Psych was consulted -appreciate input pt evaluated by Psych denies of any depressive symptom Zoloft Increased to 50mg PO daily periodic monitoring of EKG for Qtc prolongation Metabolic encephalopathy -\ resolved due to hypercapnia /respiratory failure -rawake and alert , mental status improved to baseline -CT head negative -pt is counselled over and over again for compliance with Bipap at night -agreeable Urinary retention will monitor I/O - Right renal mass seen on CT February; -Follows with Dr. Persaud as an outpatient Idiopathic cardiomyopathy /with CHF chronic diastolic dysfunction Ejection Fraction 45-50% vol status at baseline Change Lasix to PO 40 mg BID cardiology has been following Hx Atrial flutter with RVR and Sick sinus syndrome s/p dual chamber pacemaker - rate is controlled - Continue amiodarone and metoprolol -on Coumadin PRESSURE ULCER : - Morbid obesity/bed bound -has multiple skin break down -pt has been refusing to be turned by nursing to provide skin care - wound care consulted- appreciate input multiple wounds on buttock and leg area noted , dressing applied with Optifoam pt is counselled for nursing to allow change of position and wound care to prevent infection and further breakdown of skin Hypothyroidism - Continue levothyroxine Chronic normocytic anemia (anemia of chronic disease) - Hbg stable -monitor CBC VTE Prophylaxis - continue warfarin. GI Prophylaxis - Pantoprazole 40 mg Code - Full no cardioversion Disposition Waiting for approval to transfer to LTAC Vital Signs: Date Time Temp Pulse Resp B/P Pulse Ox O2 Delivery O2 Flow Rate FiO2 04/09/16 20:00 Trach Collar 10.0 40 04/09/16 16:00 Room Air 04/09/16 15:13 36.6 60 20 108/62 94 Room Air 04/09/16 08:45 37.2 58 18 138/69 95 Trach Collar 04/09/16 08:00 Room Air 04/09/16 05:20 60 95 40 04/09/16 01:55 60 96 40 04/09/16 00:42 37.3 60 20 124/71 97 Trach Collar 10.0 04/09/16 00:00 97 BiPAP 40 04/08/16 23:47 73 97 40 04/08/16 22:58 68 96 40
[2016-04-10 00:44] VITALS: BP 112/78; PULSE 79; TEMP 36.6; O2SAT 97
[2016-04-10] MEDS: LEVOTHYROXINE 100 MCG TAB PO SCH (06:51)
[2016-04-10] MEDS: HEPARIN SOD 5000 UNIT/0.5 ML CARP SQ SCH ×4 (06:53→23:00)
[2016-04-10 07:38] VITALS: BP 117/59; PULSE 59; TEMP 36.8; O2SAT 96
[2016-04-10] MEDS: POLYETHYLENE (MIRALAX) 17 GM PACK PO SCH (08:00)
[2016-04-10] MEDS: METOPROLOL SUCC 25MG EXT REL TAB PO SCH (08:00)
[2016-04-10] MEDS: ALBUTEROL HFA 8 GM INHALER INH SCH ×5 (08:26→22:43)
[2016-04-10] MEDS: DOCUSATE SODIUM 100 MG CAP PO SCH ×2 (08:26→20:32)
[2016-04-10] MEDS: IPRATROPIUM BROMIDE HFA INHALER INH SCH ×5 (08:26→22:43)
[2016-04-10] MEDS: CEROVITE ADV FORMULA TAB PO SCH (08:27)
[2016-04-10] MEDS: POTASSIUM CHLORIDE PWD 20 MEQ PACK PO SCH ×2 (08:27→20:33)
[2016-04-10] MEDS: AMIODARONE 200 MG TAB PO SCH (08:27)
[2016-04-10] MEDS: SERTRALINE HCL 100 MG TAB PO SCH (08:28)
[2016-04-10] MEDS: POT PHOSPHATE MONOBASIC W/ SOD TAB PO SCH ×2 (08:28→20:34)
[2016-04-10] MEDS: PANTOprazole SOD 40 MG TAB PO SCH (08:28)
[2016-04-10] MEDS: FUROSEMIDE 40 MG TAB PO SCH ×2 (08:29→17:28)
[2016-04-10 15:46] VITALS: BP 132/76; PULSE 59; TEMP 36.4; O2SAT 97
[2016-04-10] MEDS: WARFARIN SOD 5 MG TAB PO SCH (17:28)
--- NOTE | 2016-04-10 18:33 | Progress Note ---
Internal Med Progress Note Date of Service: Apr 10, 2016. Provider Documentation: SUBJECTIVE: respiratory status remains stable has minimum secretion in trach area no complain of SOB communicating with writing OBJECTIVE: Vital Signs-as noted below Exam: General- morbidly obese, no distress, comfortable Head- atraumatic Eyes- PERRL, EOMI, anicteric ENT- trach collar present Lungs-Coarse breath sound Heart- regular rhythm; no murmur, S1/S2 present Abdomen- normal bowel sounds, soft, obesity Extremities- severe bilateral lymphedema with venous stasis changes , pt has multiple pressure sores , skin breakdown on back , refused to be turned by nursing for skin care Neuro- no focal neurological deficit alert, oriented, PERRL, EOMI Lab data as noted below. ASSESSMENT & PLAN: Acute on chronic hypoxic respiratory failure - obesity hypoventilation s/p tracheostomy - pseudomonas on sputum cx possible colonization -Procalcitonin normal Zosyn D/endy Pulmonology consulted started pt on Pulmozyme - As per orthopedic technician, recommended to continue BIPAP at night and during the day as much as tolerated - BIPAP setting adjusted as per orthopedic technician -pt has been very poorly complaint with BiPap will need placement -SNF vs LTAC - palliative care consulted ,appreciate input pt is not interested in Hospice /palliative care yet given complexity of his medical needs will need LTAC placement [facility] [place] by his insurance referral made to another LTAC awaiting approval DEPRESSION Psych was consulted -appreciate input pt evaluated by Psych denies of any depressive symptom Zoloft Increased to 50mg PO daily periodic monitoring of EKG for Qtc prolongation Metabolic encephalopathy -\ resolved due to hypercapnia /respiratory failure -rawake and alert , mental status improved to baseline -CT head negative -pt is counselled over and over again for compliance with Bipap at night -agreeable Urinary retention will monitor I/O - Right renal mass seen on CT February; -Follows with Dr. Persaud as an outpatient Idiopathic cardiomyopathy /with CHF chronic diastolic dysfunction Ejection Fraction 45-50% vol status at baseline cont Lasix to PO 40 mg BID Hx Atrial flutter with RVR and Sick sinus syndrome s/p dual chamber pacemaker - rate is controlled - Continue amiodarone and metoprolol -on Coumadin PRESSURE ULCER : - Morbid obesity/bed bound -has multiple skin break down -pt has been refusing to be turned by nursing to provide skin care - wound care consulted- appreciate input multiple wounds on buttock and leg area noted , dressing applied with Optifoam pt is counselled for nursing to allow change of position and wound care to prevent infection and further breakdown of skin Hypothyroidism - Continue levothyroxine Chronic normocytic anemia (anemia of chronic disease) - Hbg stable -monitor CBC VTE Prophylaxis - continue warfarin. GI Prophylaxis - Pantoprazole 40 mg Code - Full no cardioversion Disposition Waiting for approval to transfer to LTAC Vital Signs: Date Time Temp Pulse Resp B/P Pulse Ox O2 Delivery O2 Flow Rate FiO2 04/11/16 08:01 37.1 75 20 145/94 92 04/11/16 08:00 Room Air 04/10/16 23:59 BiPAP 10.0 40 Trach Collar 04/10/16 23:05 36.9 60 16 111/67 99 04/10/16 22:44 78 16 96 Trach Collar 40 04/10/16 22:43 95 40 04/10/16 20:00 Trach Collar 10.0 40 04/10/16 16:00 Room Air 04/10/16 15:46 36.4 59 18 132/76 97 Trach Collar
[2016-04-10] MEDS: ATORVASTATIN 10 MG TAB PO SCH (20:32)
[2016-04-10] MEDS: TAMSULOSIN HCL 0.4 MG CAP PO SCH (20:32)
[2016-04-10] MEDS: TRAMADOL HCL 50 MG TAB PO PRN (20:43)
[2016-04-10 22:43] VITALS: O2SAT 95
[2016-04-10 22:44] VITALS: PULSE 78; O2SAT 96
[2016-04-10 23:05] VITALS: BP 111/67; PULSE 60; TEMP 36.9; O2SAT 99
[2016-04-11] MEDS: ALBUTEROL HFA 8 GM INHALER INH SCH ×3 (06:00→18:10)
[2016-04-11] MEDS: IPRATROPIUM BROMIDE HFA INHALER INH SCH ×3 (06:00→18:10)
[2016-04-11] MEDS: LEVOTHYROXINE 100 MCG TAB PO SCH (06:35)
[2016-04-11] MEDS: HEPARIN SOD 5000 UNIT/0.5 ML CARP SQ SCH ×3 (06:37→21:51)
[2016-04-11] MEDS: POLYETHYLENE (MIRALAX) 17 GM PACK PO SCH (08:00)
[2016-04-11 08:01] VITALS: BP 145/94; PULSE 75; TEMP 37.1; O2SAT 92
[2016-04-11] MEDS: CEROVITE ADV FORMULA TAB PO SCH (08:09)
[2016-04-11] MEDS: POTASSIUM CHLORIDE PWD 20 MEQ PACK PO SCH ×2 (08:09→20:44)
[2016-04-11] MEDS: METOPROLOL SUCC 25MG EXT REL TAB PO SCH (08:09)
[2016-04-11] MEDS: SERTRALINE HCL 100 MG TAB PO SCH (08:09)
[2016-04-11] MEDS: PANTOprazole SOD 40 MG TAB PO SCH (08:09)
[2016-04-11] MEDS: POT PHOSPHATE MONOBASIC W/ SOD TAB PO SCH ×2 (08:10→20:45)
[2016-04-11] MEDS: FUROSEMIDE 40 MG TAB PO SCH ×2 (08:10→17:27)
[2016-04-11] MEDS: DOCUSATE SODIUM 100 MG CAP PO SCH ×2 (08:10→20:43)
[2016-04-11] MEDS: AMIODARONE 200 MG TAB PO SCH (08:10)
[2016-04-11 12:28] LABS: INR 2.7 (0.9-1.1); PROTHROMBIN TIME (PATIENT) 29.9 SECONDS (9.0-12.0)
[2016-04-11] MEDS: TRAMADOL HCL 50 MG TAB PO PRN (12:36)
[2016-04-11 15:30] VITALS: BP 160/61; PULSE 63; TEMP 36.8; O2SAT 94
[2016-04-11 15:50] VITALS: BP 118/74
[2016-04-11] MEDS: WARFARIN SOD 5 MG TAB PO SCH (15:50)
[2016-04-11 17:20] VITALS: BP 123/69; PULSE 63
[2016-04-11] MEDS ORDERED: VANCOMYCIN INJ 1,000 MG in SODIUM CHLORIDE 0.9% 250ML 250 ML IV STA (17:23)
--- NOTE | 2016-04-11 17:37 | Progress Note ---
Internal Med Progress Note Date of Service: Apr 11, 2016. Provider Documentation: SUBJECTIVE: pt remains in trach collar offers no complain wants to know when he can be discharged to rehab OBJECTIVE: Vital Signs-as noted below Exam: General- morbidly obese, no distress, comfortable Head- atraumatic Eyes- PERRL, EOMI, anicteric ENT- trach collar present Lungs-Coarse breath sound Heart- regular rhythm; no murmur, S1/S2 present Abdomen- normal bowel sounds, soft, obesity Extremities- severe bilateral lymphedema with venous stasis changes , pt has multiple pressure sores , skin breakdown on back , large open wound with serosanguineous drainage noted underneath rt lower leg Neuro- no focal neurological deficit alert, oriented, PERRL, EOMI Lab data as noted below. ASSESSMENT & PLAN: Acute on chronic hypoxic respiratory failure - obesity hypoventilation s/p tracheostomy - pseudomonas on sputum cx possible colonization -Procalcitonin normal Zosyn D/endy Pulmonology consulted started pt on Pulmozyme - As per clinical trial coordinator, recommended to continue BIPAP at night and during the day as much as tolerated - BIPAP setting adjusted as per clinical trial coordinator -pt has been very poorly complaint with BiPap will need placement -SNF vs LTAC - palliative care consulted ,appreciate input pt is not interested in Hospice /palliative care yet given complexity of his medical needs will need LTAC placement was [facility] [place] by his insurance referral made to another LTAC awaiting approval CELLULITIS /OPEN WOUND ON RT LOWER LEG: pt to have large open wound with drainage underneath rt lower leg pt refused to be turned , change position, provide wound care during this hospital stay wound culture and gram stain ordered added Vancomycin /Zosyn wound care nurse following pt is counselled repeatedly to allow nursing to provide wound care and change position DEPRESSION Psych was consulted -appreciate input pt evaluated by Psych denies of any depressive symptom Zoloft Increased to 50mg PO daily periodic monitoring of EKG for Qtc prolongation Metabolic encephalopathy - resolved due to hypercapnia /respiratory failure -rawake and alert , mental status improved to baseline -CT head negative -pt is counselled over and over again for compliance with Bipap at night -agreeable Urinary retention on chronic indwelling Fitch - Right renal mass seen on CT February; -Follows with Dr. Persaud as an outpatient Idiopathic cardiomyopathy /with CHF chronic diastolic dysfunction Ejection Fraction 45-50% vol status at baseline cont Lasix to PO 40 mg BID Hx Atrial flutter with RVR and Sick sinus syndrome s/p dual chamber pacemaker - rate is controlled - Continue amiodarone and metoprolol -on Coumadin INR 2.7 today hold Coumadin PRESSURE ULCER : - Morbid obesity/bed bound -has multiple skin break down -pt has been refusing to be turned by nursing to provide skin care - wound care consulted- appreciate input multiple wounds on buttock and leg area noted , dressing applied with Optifoam pt is counselled for nursing to allow change of position and wound care to prevent infection and further breakdown of skin started on Iv Vanco/Zosyn for draining wound on back of rt lower leg Hypothyroidism - Continue levothyroxine Chronic normocytic anemia (anemia of chronic disease) - Hbg stable -monitor CBC VTE Prophylaxis - continue warfarin. GI Prophylaxis - Pantoprazole 40 mg Code - Full no cardioversion Disposition Waiting for approval to transfer to LTAC Vital Signs: Date Time Temp Pulse Resp B/P Pulse Ox O2 Delivery O2 Flow Rate FiO2 04/11/16 15:50 118/74 04/11/16 15:50 Room Air Trach Collar 04/11/16 15:30 36.8 63 20 160/61 94 10.0 04/11/16 08:01 37.1 75 20 145/94 92 04/11/16 08:00 Room Air 04/10/16 23:59 BiPAP 10.0 40 Trach Collar 04/10/16 23:05 36.9 60 16 111/67 99 04/10/16 22:44 78 16 96 Trach Collar 40 04/10/16 22:43 95 40 04/10/16 20:00 Trach Collar 10.0 40 Lab Results: Results Past 24 Hours Test 04/11/16 12:04 Range/Units Prothrombin Time 29.9 9.0-12.0 SECONDS Prothromb Time International Ratio 2.7 0.9-1.1 Microbiology Results 04/11/16 Gram Stain, Received Pending 04/11/16 Wound Culture, Received Pending
[2016-04-11] MEDS ORDERED: VANCOMYCIN CONSULT ACTIVE PRN (18:45)
[2016-04-11] MEDS ORDERED: VANCOMYCIN INJ 2,750 MG in SODIUM CHLORIDE 0.9% 500ML 500 ML IV ONE (19:00)
[2016-04-11 19:53] LABS: CREATININE 1.2 mg/dl (0.60-1.40)
--- NOTE | 2016-04-11 20:24 | Pharmacy Progress Note ---
Pharmacy Antibiotic Consult Date of Service: Apr 11, 2016. Pharmacy Dosing Scope Pharmacy is consulted to initiate Vanco IV dosing therapy, order appropriate labs and adjust drug dose/frequency. Subjective The patient is a 60 year old male admitted on Mar 29, 2016 at 07:36. Objective Height (Feet): 5 Height (Inches): 10.00 Weight (Kilograms): 176.500 Lab Results (24hrs): Item Value Date Time Creatinine 1.20 mg/dl 04/11/161914 Est Creatinine Clear Calc Drug Dose 107.3 ml/min 04/11/161914 Laboratory Tests Test 04/11/16 19:15 Creatinine 1.20 mg/dl Micro Results: RUN DATE: 03/31/16 [facility] LAB PAGE 1 RUN TIME: 0848 Specimen Inquiry PATIENT: KIMBERLEE FROST LOC: [facility] U # : [id number] AGE/SX: 60/M ROOM: E106 REG : 03/29/[address]: Wendi Colin M.D. : 1955 BED: 1 DIS : STATUS: ADM IN TLOC: SPEC #: [id number] FRANK: 03/29/16 STATUS: MARIELLE REQ #: [id number] RECD: 03/29/[address] [facility] [address]: Jason Shearer MD SOURCE: SPUTUM ENTR: 03/29/[address] [facility] [address]: aDna Kaminski MD SPDESC: T TUBE SUC Star Harris DO Oconer, Joseph N., M.D. Pervez, Ayesha H., M.D. Westrick, Diann, M.D. Waddington, Thomas W., MD ORDERED: SPUT CULT/SMR COMMENTS: Has Specimen Been Obtained/Collected? Y Procedure Result Verified Site GRAM STAIN Final 03/29/161430 RESULT FEW EPITHELIAL CELLS MODERATE POLYS AND MONONUCLEATED CELLS RARE GRAM POSITIVE BACILLI SPUTUM CULTURE Final 03/31/160848 Organism 1 PSEUDOMONAS AERUGINOSA QUANITY MODERATE SENS SENSITIVITY TO FOLLOW NORMAL TRINA LIGHT NORMAL TRINA 1. PSEUDOMONAS AERUGINOSA Target Route Dose RX AB Cost M.I.C. IQ ------ ----- ------ -- ------ -------- - ------ CEFTAZIDIME R >16 CEFEPIME R >16 IMIPENEM S 2 AZTREONAM R >16 GENTAMICIN S <=4 TOBRAMYCIN S <=4 AMIKACIN S <=16 CIPROFLOXACIN R >2 LEVOFLOXACIN R >4 PIP/TAZO R >64 S = SENSITIVE I = INTERMEDIATE R = RESISTANT Item Value Date Time Gram Stain Received 04/11/16 1450 Drainage - Surface Leg Right Lower Pending Gram Stain - Final Complete 03/29/16 1210 Sputum Trach. Tube Suction MRSA DNA Surveillance Screen - Final Complete 03/29/16 0830 Nasal Specimen Positive for MRSA by DNA Probe Blood Culture - Final Complete 03/29/16 0439 Blood NO GROWTH Blood Culture - Final Complete 03/29/16 0423 Blood Coag Neg Staph Not Lugdunensis Assessment & Plan Pt is a 60yo M familiar to the pharmacy kinetic team. Recently received Vanco/ Zosyn. Now being re-started on Vanco due to wound with drainage on R leg. Renal fxn looks to be slightly worse than baseline. Pt population p'kinetics: t1/2: 7.45hrs, ke: 0.093. Wound culture pending. Due to the pt's BMI he is at a high risk for accumulation. After loading doses in the past the pt yielded a trough of 19.9. I have only ordered a loading dose in an effort to avoid supratherapeutic lvls. Vanco: Loading dose: Vanco 2750mg (15.5mg/kg) IV X 1 dose then: Goal trough level estimate: between 10 - 15 mcg/mL. Random level has been ordered for: with AM labs. Pharmacy will continue to follow and will adjust dose/frequency as necessary. Thank you
[2016-04-11] MEDS: ATORVASTATIN 10 MG TAB PO SCH (20:45)
[2016-04-11] MEDS: TAMSULOSIN HCL 0.4 MG CAP PO SCH (20:45)
[2016-04-11] MEDS ORDERED: VANCOMYCIN INJ 1,000 MG in SODIUM CHLORIDE 0.9% 250ML 250 ML IV SCH (21:00)
[2016-04-11 22:38] VITALS: O2SAT 96
[2016-04-12 01:07] VITALS: BP 127/68; PULSE 72; TEMP 36.5; O2SAT 96
[2016-04-12] MEDS ORDERED: VANCOMYCIN INJ 2,200 MG in SODIUM CHLORIDE 0.9% 500ML 500 ML IV SCH (02:00)
[2016-04-12 05:55] LABS: HEMATOCRIT 28.8 % (42-52); MEAN CELL VOLUME 87.5 fL (80-100); MEAN CORPUSCULAR HEMOGLOBIN 27.7 pg (25-34); MEAN CORPUSCULAR HGB CONC 31.6 g/dl (32-36); MEAN PLATELET VOLUME 8.8 fL (7.4-10.4); PLATELET COUNT 311 K/uL (130-400); RED BLOOD COUNT 3.29 M/uL (4.7-6.1); WHITE BLOOD COUNT 5.63 K/uL (4.8-10.8)
[2016-04-12 06:04] LABS: INR 2.4 (0.9-1.1); PROTHROMBIN TIME (PATIENT) 27.2 SECONDS (9.0-12.0)
[2016-04-12] MEDS: HEPARIN SOD 5000 UNIT/0.5 ML CARP SQ SCH ×3 (06:26→21:13)
[2016-04-12] MEDS: IPRATROPIUM BROMIDE HFA INHALER INH SCH ×4 (06:26→17:48)
[2016-04-12] MEDS: LEVOTHYROXINE 100 MCG TAB PO SCH (06:27)
[2016-04-12] MEDS: ALBUTEROL HFA 8 GM INHALER INH SCH ×4 (06:27→17:48)
[2016-04-12 06:28] LABS: BUN/CREATININE RATIO 21.9 (10-20); CALCIUM 8.8 mg/dl (8.5-10.1); CREATININE 0.93 mg/dl (0.60-1.40)
[2016-04-12 07:31] VITALS: BP 118/72; PULSE 60; TEMP 36.7; O2SAT 92
[2016-04-12] MEDS: POLYETHYLENE (MIRALAX) 17 GM PACK PO SCH (08:00)
[2016-04-12] MEDS: METOPROLOL SUCC 25MG EXT REL TAB PO SCH (09:06)
[2016-04-12] MEDS: AMIODARONE 200 MG TAB PO SCH (09:07)
[2016-04-12] MEDS: SERTRALINE HCL 100 MG TAB PO SCH (09:08)
[2016-04-12] MEDS: CEROVITE ADV FORMULA TAB PO SCH (09:08)
[2016-04-12] MEDS: PANTOprazole SOD 40 MG TAB PO SCH (09:08)
[2016-04-12] MEDS: POT PHOSPHATE MONOBASIC W/ SOD TAB PO SCH ×2 (09:09→20:00)
[2016-04-12] MEDS: DOCUSATE SODIUM 100 MG CAP PO SCH ×2 (09:10→21:19)
[2016-04-12] MEDS: FUROSEMIDE 40 MG TAB PO SCH ×2 (09:10→16:27)
[2016-04-12] MEDS: POTASSIUM CHLORIDE PWD 20 MEQ PACK PO SCH ×2 (09:10→21:18)
[2016-04-12] MEDS ORDERED: VANCOMYCIN TROUGH ONE (09:30)
--- NOTE | 2016-04-12 12:25 | Pharmacy Progress Note ---
Pharmacy Antibiotic Prog Note Date of Service: Apr 12, 2016. Subjective: The patient received VANCOMYCIN 2750mg (~15mg/kg) IV x 1 dose yesterday evening. The patient is currently on day # 2 of VANCOMYCIN IV therapy. Objective: Height (Feet): 5 Height (Inches): 10.00 Weight (Kilograms): 176.500 Levels: Item Value Date Time Random Vancomycin Level 19.8 mcg/ml 04/12/16 0530 Lab Results (24hrs): Laboratory Tests Test 04/11/16 19:15 04/12/16 05:30 Creatinine 1.20 mg/dl 0.93 mg/dl BUN/Creatinine Ratio 21.9 Blood Urea Nitrogen 20 mg/dl White Blood Count 5.63 K/uL Micro Results: * 04/11/16 -- Drainage, RLE -- pending Assessment & Plan: 60yo male admitted on 03/29 for HCAP. Received VANCOMYCIN/ZOSYN from 03/29-. VANCOMYCIN is now reordered for RLE cellulitis. He is known to pharmacy from multiple admissions/antibiotic consults. Renal function is at baseline. VANCOMYCIN: * Patient received VANCOMYCIN 2750mg (~15mg/kg) IV x 1 dose last evening. * Random VANCOMYCIN level drawn this am (~9 hours after dose) = 19.8 mcg/mL. * This drug level is Therapeutic, however based on past consults, this patient requires significantly less VANCOMYCIN than would be expected based on his weight and renal function. * Will redose cautiously with VANCOMYCIN 2000mg IV q24h, and monitor levels daily until his needs can be better assessed. * Goal trough level estimate: between 15 - 20 mcg/mL. * Trough level has been ordered for: . Pharmacy will continue to follow and will adjust dose/frequency as necessary. Thank you
[2016-04-12] MEDS: VANCOMYCIN INJ 2,000 MG in SODIUM CHLORIDE 0.9% 500ML 500 ML IV SCH (12:56)
--- NOTE | 2016-04-12 15:00 | PULMONARY PROGRESS NOTE ---
DATE: 04/12/2016 TIME: 2:20 p.m. SUBJECTIVE: The patient generally feels better. He denies significant shortness of breath. He tells me that there has been some bloody secretions through his trach tube today. Nursing staff did not confirm that with me however. Overall, the patient states he feels much better. I brought up to him the fact that there is a sleep clinic appointment scheduled for him next week. He indicated there would be no way that he would be going to that. I told him I assume that would be the case. He does indicate that he has adapted to wearing BiPAP at night. He says for the last 10 nights or so, he has been wearing it regularly. I asked him if the balloon would be up or if the balloon would be down when he wears the BiPAP. He told me that it is sometimes up and sometimes down, depending on factors that were not clear to me. He does insist that he is wearing it however. The most recent medical problems have been related to cellulitis. OBJECTIVE: GENERAL: The patient looked comfortable. He has the trach tube in place. He is able to speak well by covering the end of the trach tube. He has been afebrile. No lymph nodes were palpable. VITAL SIGNS: Heart rate was 60 per minute. Blood pressure 118/72. Respiratory rate is 20 breaths per minute. LUNGS: The lung olguin were clear bilaterally but very diminished. It was difficult to examine. As in the past, the patient cannot turn hardly at all and he does not sit forward. Thus auscultating the posterior chest was almost impossible. At best, I could get posterolateral. Oxygen saturation is 92% on the trach collar. ABDOMEN: Massively obese. Bowel sounds were present. The abdomen was nontender. EXTREMITIES: The lower extremities show chronic lymphedema, as has been seen previously. He does have multiple pressure sores on the extremities. There is an open wound with drainage underneath the right lower leg. LABORATORY DATA: Electrolytes today show sodium 138, potassium 4.0, chloride 98, bicarb 34. The BUN was 20 with a creatinine of 0.93. It is notable that the carbon dioxide levels have decreased substantially. The level today as noted was 34 and back on April 06, it was 41. On the , it was 43. Hopefully, this implies a better level of stability. White count today is 5.63. Hemoglobin is 9.1. Platelets were 311,000. INR today was 2.4. IMPRESSIONS: 1. Respiratory failure -- acute on chronic with hypoxia and hypercarbia. 2. Obesity hypoventilation syndrome. 3. Status post tracheostomy. COMMENTS AND RECOMMENDATIONS: I am trying to determine from the patient who his homecare company is. I believe he previously had a machine at home. It is unclear if this was Trilogy or BiPAP. I may need to speak to his regarding this. We have asked him to have his check his machine and see who the home care provider is. The patient tells me that the machine he currently has could not be adapted to a trach tube. I would think however that any of the machines could be adapted to that if need be. We are going to cancel the sleep clinic appointment which it was clear that patient was not going to be able to keep anyway.
[2016-04-12 16:15] VITALS: O2SAT 96
[2016-04-12 16:30] VITALS: BP 114/65; PULSE 59; TEMP 36.9; O2SAT 97
--- NOTE | 2016-04-12 20:58 | Progress Note ---
Internal Med Progress Note Date of Service: Apr 12, 2016. Provider Documentation: SUBJECTIVE: offers no complain secretions form trach collar has improved OBJECTIVE: Vital Signs-as noted below Exam: General- morbidly obese, no distress, comfortable Head- atraumatic Eyes- PERRL, EOMI, anicteric ENT- trach collar present Lungs-Coarse breath sound Heart- regular rhythm; no murmur, S1/S2 present Abdomen- normal bowel sounds, soft, obesity Extremities- severe bilateral lymphedema with venous stasis changes , pt has multiple pressure sores , skin breakdown on back , large open wound with serosanguineous drainage noted underneath rt lower leg Neuro- no focal neurological deficit alert, oriented, PERRL, EOMI Lab data as noted below. ASSESSMENT & PLAN: Acute on chronic hypoxic respiratory failure - obesity hypoventilation s/p tracheostomy - pseudomonas on sputum cx possible colonization -Procalcitonin normal Zosyn D/endy Pulmonology consulted started pt on Pulmozyme - As per steam and gas turbines assembler, recommended to continue BIPAP at night and during the day as much as tolerated - BIPAP setting adjusted as per steam and gas turbines assembler -pt has been very poorly complaint with BiPap will need placement -SNF vs LTAC - palliative care consulted ,appreciate input pt is not interested in Hospice /palliative care yet given complexity of his medical needs will need LTAC placement was [facility] [place] by his insurance referral made to another LTAC awaiting approval CELLULITIS /OPEN WOUND ON RT LOWER LEG: pt to have large open wound with drainage underneath rt lower leg pt refused to be turned , change position, provide wound care during this hospital stay wound culture and gram stain -growing pseudomonas /staph /gram positive cocci / gram positive bacilli on Vancomycin /Zosyn ID consult requested wound care nurse following pt is counselled repeatedly to allow nursing to provide wound care and change position DEPRESSION Psych was consulted -appreciate input pt evaluated by Psych denies of any depressive symptom Zoloft Increased to 50mg PO daily periodic monitoring of EKG for Qtc prolongation Metabolic encephalopathy - resolved due to hypercapnia /respiratory failure -rawake and alert , mental status improved to baseline -CT head negative -pt is counselled over and over again for compliance with Bipap at night -agreeable Urinary retention on chronic indwelling Fitch - Right renal mass seen on CT February; -Follows with Dr. Persaud as an outpatient Idiopathic cardiomyopathy /with CHF chronic diastolic dysfunction Ejection Fraction 45-50% vol status at baseline cont Lasix to PO 40 mg BID Hx Atrial flutter with RVR and Sick sinus syndrome s/p dual chamber pacemaker - rate is controlled - Continue amiodarone and metoprolol -on Coumadin INR 2.7 today hold Coumadin PRESSURE ULCER : - Morbid obesity/bed bound -has multiple skin break down -pt has been refusing to be turned by nursing to provide skin care - wound care consulted- appreciate input multiple wounds on buttock and leg area noted , dressing applied with Optifoam pt is counselled for nursing to allow change of position and wound care to prevent infection and further breakdown of skin started on Iv Vanco/Zosyn for draining wound on back of rt lower leg Hypothyroidism - Continue levothyroxine Chronic normocytic anemia (anemia of chronic disease) - Hbg stable -monitor CBC VTE Prophylaxis - continue warfarin. GI Prophylaxis - Pantoprazole 40 mg Code - Full no cardioversion Disposition to be determined does not have Bed availability in LTAC is unable to take care of pt at home repeated admission with Pneumonia, lower ext wound infection will need placement Social service following for discharge planning Vital Signs: Date Time Temp Pulse Resp B/P Pulse Ox O2 Delivery O2 Flow Rate FiO2 04/12/16 23:20 36.5 78 18 139/72 94 04/12/16 22:56 96 40 04/12/16 16:30 36.9 59 18 114/65 97 Trach Collar 04/12/16 16:15 96 Trach Collar 10.0 Free Flow/Blowby 04/12/16 09:00 BiPAP Trach Collar 04/12/16 07:31 36.7 60 20 118/72 92 Trach Collar 04/12/16 01:07 36.5 72 20 127/68 96 04/11/16 23:59 BiPAP Trach Collar Lab Results: Results Past 24 Hours Test 04/12/16 05:30 Range/Units White Blood Count 5.63 4.8-10.8 K/uL Red Blood Count 3.29 4.7-6.1 M/uL Hemoglobin 9.1 14.0-18.0 g/dL Hematocrit 28.8 42-52 % Mean Corpuscular Volume 87.5 80-100 fL Mean Corpuscular Hemoglobin 27.7 25-34 pg Mean Corpuscular Hemoglobin Concent 31.6 32-36 g/dl RDW Standard Deviation 56.3 36.4-46.3 fL RDW Coefficient of Variation 17.5 11.5-14.5 % Platelet Count 311 130-400 K/uL Mean Platelet Volume 8.8 7.4-10.4 fL Prothrombin Time 27.2 9.0-12.0 SECONDS Prothromb Time International Ratio 2.4 0.9-1.1 Sodium Level 138 136-145 mmol/L Potassium Level 4.0 3.5-5.1 mmol/L Chloride Level 98 98-107 mmol/L Carbon Dioxide Level 34 21-32 mmol/L Anion Gap 6.0 3-11 mmol/L Blood Urea Nitrogen 20 7-18 mg/dl Creatinine 0.93 0.60-1.40 mg/dl Est Creatinine Clear Calc Drug Dose 138.4 ml/min Estimated GFR () 103.8 Estimated GFR (Non- 89.5 BUN/Creatinine Ratio 21.9 10-20 Random Glucose 84 70-99 mg/dl Calcium Level 8.8 8.5-10.1 mg/dl Random Vancomycin Level 19.8 mcg/ml
[2016-04-12] MEDS ORDERED: PIPERACILL/TAZOBAC IV 3.375 GM in DEXTROSE 5% 100ML 100 ML IV SCH (21:00)
[2016-04-12] MEDS: ATORVASTATIN 10 MG TAB PO SCH (21:21)
[2016-04-12] MEDS: TAMSULOSIN HCL 0.4 MG CAP PO SCH (21:21)
[2016-04-12] MEDS ORDERED: PIPERACILL/TAZOBAC CONSULT ACTIVE PRN (21:30)
[2016-04-12] MEDS: PIPERACILL/TAZOBAC IV 4.5 GM in DEXTROSE 5% 100ML IV SCH (22:02)
[2016-04-12 22:56] VITALS: PULSE 60; O2SAT 96
[2016-04-12 23:20] VITALS: BP 139/72; PULSE 78; TEMP 36.5; O2SAT 94
[2016-04-13] VITALS (7 sets, daily range): BP systolic 105–129; BP diastolic 58–73; PULSE 59–74; TEMP 36.8–37; O2SAT 94–97
[2016-04-13] MEDS: PIPERACILL/TAZOBAC IV 4.5 GM in DEXTROSE 5% 100ML IV SCH ×3 (05:47→22:01)
[2016-04-13 05:51] LABS: HEMATOCRIT 28.8 % (42-52); MEAN CORPUSCULAR HEMOGLOBIN 27.5 pg (25-34); MEAN CORPUSCULAR HGB CONC 31.6 g/dl (32-36); MEAN PLATELET VOLUME 8.4 fL (7.4-10.4); PLATELET COUNT 314 K/uL (130-400); RED BLOOD COUNT 3.31 M/uL (4.7-6.1); WHITE BLOOD COUNT 6.79 K/uL (4.8-10.8)
[2016-04-13 06:02] LABS: INR 2.4 (0.9-1.1); PROTHROMBIN TIME (PATIENT) 26.1 SECONDS (9.0-12.0)
[2016-04-13 06:21] LABS: CREATININE 1.1 mg/dl (0.60-1.40); POTASSIUM 4.1 mmol/L (3.5-5.1)
[2016-04-13] MEDS: IPRATROPIUM BROMIDE HFA INHALER INH SCH ×5 (07:40→18:53)
[2016-04-13] MEDS: ALBUTEROL HFA 8 GM INHALER INH SCH ×5 (07:40→18:53)
[2016-04-13] MEDS: HEPARIN SOD 5000 UNIT/0.5 ML CARP SQ SCH ×4 (07:40→22:01)
[2016-04-13] MEDS: LEVOTHYROXINE 100 MCG TAB PO SCH ×2 (07:41→08:12)
[2016-04-13] MEDS: SERTRALINE HCL 100 MG TAB PO SCH (09:15)
[2016-04-13] MEDS: CEROVITE ADV FORMULA TAB PO SCH (09:15)
[2016-04-13] MEDS: FUROSEMIDE 40 MG TAB PO SCH ×2 (09:15→17:10)
[2016-04-13] MEDS: METOPROLOL SUCC 25MG EXT REL TAB PO SCH (09:15)
[2016-04-13] MEDS: PANTOprazole SOD 40 MG TAB PO SCH (09:15)
[2016-04-13] MEDS: AMIODARONE 200 MG TAB PO SCH (09:16)
[2016-04-13] MEDS: POTASSIUM CHLORIDE PWD 20 MEQ PACK PO SCH ×2 (09:16→22:01)
[2016-04-13] MEDS: DOCUSATE SODIUM 100 MG CAP PO SCH ×2 (09:16→22:02)
[2016-04-13] MEDS: POT PHOSPHATE MONOBASIC W/ SOD TAB PO SCH (09:16)
[2016-04-13] MEDS: POLYETHYLENE (MIRALAX) 17 GM PACK PO SCH (09:16)
[2016-04-13] MEDS: VANCOMYCIN INJ 2,000 MG in SODIUM CHLORIDE 0.9% 500ML 500 ML IV SCH (11:29)
--- NOTE | 2016-04-13 11:36 | Medical Consult ---
Consultation Date of Consultation: Apr 13, 2016. Attending Physician: Ventura Vila MD Reason for Consultation: Pseudomonas wound infection History of Present Illness case discussed with hospitalist service, records from previous hospitalizations reviewed 60-year-old male with longstanding respiratory failure with multiple hospitalizations for respiratory failure and pneumonia, status post tracheostomy in January, recently admitted with highly resistant pseudomonal infection, now again admitted with respiratory failure. Patient has received IV antibiotics, and has shown clinical improvement. However, now growing a highly resistant strain of Pseudomonas, not susceptible to quinolones or Zosyn. He has had no evidence now of worsening respiratory status, no increase in sputum production, no fever. Patient does have chronic severe lower extremity lymphedema, and now has an open wound on his right buttock and upper thigh. He has been providing his own wound care at home. Cultures from the wound now growing a different Pseudomonas, resistant to quinolones, but sensitive to Zosyn , as well as strep and staph species. Patient currently being treated with IV vancomycin and Zosyn. Past Medical/Surgical History Medical Problems: (1) Acute renal failure Status: Acute (2) Anemia Status: Acute (3) Anticoagulated on warfarin Status: Acute (4) Atrial fibrillation with RVR Status: Acute (5) Bradycardia Status: Acute (6) Bradycardia Status: Acute (7) Bradycardia Status: Acute (8) Hypotension Status: Acute (9) Hypoxia Status: Acute (10) Hypoxia Status: Acute (11) Morbid obesity Status: Acute (12) Pneumonia Status: Chronic (13) Pulmonary infiltrate in left lung on chest x-ray Status: Acute (14) Respiratory failure with hypoxia Status: Acute (15) Sepsis Status: Chronic (16) SOB (shortness of breath) Status: Acute (17) SVT (supraventricular tachycardia) Status: Acute (18) Weakness Status: Acute Medical Problems: (1) ADAM (acute kidney injury) (2) Asthma (3) Atrial fibrillation and flutter (4) Bacterial infection due to Pseudomonas (5) Chronic indwelling Fitch catheter (6) DVT of lower extremity (deep venous thrombosis) (7) Dyshidrosis (8) Dyslipidemia (9) HCAP (healthcare-associated pneumonia) (10) Heart failure, systolic, due to idiopathic cardiomyopathy (11) Hx MRSA infection (12) Hyperkalemia (13) Iron deficiency anemia (14) Lymphedema (15) Morbid obesity with BMI of 60.0-69.9, adult (16) Obesity hypoventilation syndrome (17) KEARA (obstructive sleep apnea) (18) Pneumonia (19) Respiratory failure, acute (20) Sepsis (21) SOB (shortness of breath) (22) Thrombophlebitis leg (23) Venous insufficiency Surgical Problems: (1) H/O tracheostomy (2) H/O ventral hernia repair Family History Diabetes mellitus FATHER FH: heart disease MOTHER (CABG at age 68) Social History Smoking Status: Current Some Day Smoker Drug Use: none Marital Status: Housing Status: lives with significant other Occupation Status: disabled Allergies Coded Allergies: Cefepime (Verified Allergy, Intermediate, RASH, 03/29/16) PER DR. KAMINSKI Latex (Verified Allergy, Intermediate, DERMITITIS, 03/29/16) Aztreonam (Verified Allergy, Mild, RASH, 03/29/16) Current Inpatient Medications Current Inpatient Medications Medications (Trade) Dose Ordered Sig/Kelly Route Start Time Stop Time Status Last Admin Dose Admin Acetaminophen/ Empty Bag (Ofirmev IV/ Empty Iv Bag 100ml) 65 ml @ 260 mls/hr Q6H PRN IV 03/29/16 07:30 04/28/16 07:29 Heparin Sodium (Porcine) (Heparin Sq 5000 Unit/0.5ml) 5,000 unit Q8 SQ 03/30/16 16:00 04/29/16 15:59 04/13/16 08:13 5,000 UNIT Warfarin Sodium (Coumadin Tab) 5 mg DAILY@16 PO 03/30/16 16:00 04/29/16 15:59 Future Hold 04/11/16 15:50 5 MG Pantoprazole Sodium (Protonix Tab) 40 mg QAM PO 04/01/16 09:00 05/01/16 08:59 04/13/16 09:15 40 MG Atorvastatin Calcium (Lipitor Tab) 10 mg HS PO 03/31/16 21:00 04/30/16 20:59 04/12/16 21:21 10 MG Levothyroxine Sodium (Synthroid Tab) 100 mcg DAILYBB PO 04/01/16 06:00 05/01/16 05:59 04/13/16 08:12 100 MCG Multivitamins/ Minerals (Multivitamin W/ Minerals Tab) 1 tab DAILY PO 04/01/16 09:00 05/01/16 08:59 04/13/16 09:15 1 TAB Tamsulosin HCl (Flomax Cap) 0.4 mg HS PO 03/31/16 21:00 04/30/16 20:59 04/12/16 21:21 0.4 MG Amiodarone HCl (Cordarone Tab) 100 mg QAM PO 04/01/16 09:00 05/01/16 08:59 04/13/16 09:16 100 MG Metoprolol Succinate (Toprol Xl Tab) 25 mg QAM PO 04/01/16 09:00 05/01/16 08:59 04/13/16 09:15 25 MG Potassium/ Phosphorus/Sodium (Phospha 250 Neutral 155-852-130 Mg) 1 tab BID PO 04/01/16 20:00 05/01/16 20:59 04/13/16 09:16 1 TAB Potassium Chloride (Klor-Con Pwd) 20 meq BID PO 04/01/16 20:00 05/01/16 20:59 04/13/16 09:16 20 MEQ Tramadol HCl (Ultram Tab) 50 mg Q6H PRN PO 04/03/16 02:15 05/03/16 02:14 04/11/16 12:36 50 MG Heparin Sodium (Porcine) (Heparin 10 Unit/ ml 5 ml Flush) 5 ml PRN PRN FLUSH 04/04/16 08:30 05/04/16 08:29 04/13/16 06:41 5 ML Ipratropium [place] (Atrovent Hfa Inhaler) 4 puffs Q6 INH 04/06/16 18:00 05/06/16 17:59 04/13/16 08:10 4 PUFFS Albuterol (Ventolin Hfa Inhaler) 4 puffs Q6 INH 04/06/16 18:00 05/06/16 17:59 04/13/16 08:11 4 PUFFS Docusate Sodium (coLACE CAP) 100 mg BID PO 04/06/16 20:00 05/06/16 19:59 04/13/16 09:16 100 MG Polyethylene (Miralax Powder Packet) 17 gm DAILY PO 04/06/16 15:15 05/06/16 15:14 04/06/16 16:17 17 GM Bisacodyl (Dulcolax Tab) 5 mg DAILY PRN PO 04/06/16 15:15 05/06/16 15:14 Furosemide (Lasix tab) 40 mg BID17 PO 04/08/16 17:00 05/08/16 16:59 04/13/16 09:15 40 MG Miconazole Nitrate (Desenex Powder) 1 appln PRN PRN EXT 04/08/16 15:15 05/08/16 15:14 Sertraline HCl (Zoloft Tab) 100 mg QAM PO 04/10/16 08:00 05/10/16 07:59 04/13/16 09:15 100 MG Vancomycin HCl 1 ea 1 ea UD PRN N/A 04/11/16 18:45 05/11/16 18:44 Vancomycin HCl/ Sodium Chloride (Vancomycin Inj/ Nss 500ml) 540 ml @ 200 mls/hr DAILY@1200 IV 04/12/16 12:30 04/22/16 12:29 04/12/16 12:56 200 MLS/HR Piperacillin Sod/ Tazobactam Sod 1 ea 1 ea UD PRN N/A 04/12/16 21:30 05/12/16 21:29 Piperacillin Sod/ Tazobactam Sod/ Dextrose (Zosyn Iv/D5 100ml) 120 ml @ 30 mls/hr Q8H IV 04/12/16 22:00 04/22/16 21:59 04/13/16 05:47 30 MLS/HR Review of Systems Constitutional: + fatigue, + weakness, No fever Eyes: No problem reported ENT: No problem reported Respiratory: + dyspnea at rest, + dyspnea on exertion, + shortness of breath Cardiovascular: No problem reported Abdomen: No problem reported Musculoskeletal: + swelling Genitourinary - Male: No problem reported Neurologic: No problem reported Psychiatric: No problem reported Endocrine: No problem reported Hematologic / Lymphatic: No problem reported Integumentary: + new/changing skin lesions Allergic / Immunologic: No problem reported Physical Exam Date Time Temp Pulse Resp B/P Pulse Ox O2 Delivery O2 Flow Rate FiO2 04/13/16 08:00 96 Trach Collar 10.0 04/13/16 07:34 36.8 59 16 129/73 96 BiPAP Trach Collar 04/13/16 05:13 60 96 40 04/13/16 02:55 64 94 40 04/13/16 01:36 59 96 40 04/13/16 00:00 BiPAP 10.0 Trach Collar 04/12/16 23:20 36.5 78 18 139/72 94 04/12/16 22:56 60 96 40 04/12/16 16:30 36.9 59 18 114/65 97 Trach Collar 04/12/16 16:15 96 Trach Collar 10.0 Free Flow/[place] General Appearance: WD/WN, no apparent distress Head: normocephalic, atraumatic Eyes: normal inspection, EOMI, sclerae normal ENT: normal ENT inspection, pharynx normal Neck: supple, no adenopathy, + pertinent finding ( Tracheostomy in place) Respiratory/Chest: chest non-tender, lungs clear, no respiratory distress, + decreased breath sounds Cardiovascular: regular rate, rhythm, no gallop, no murmur Abdomen/GI: normal bowel sounds, non tender, soft, no organomegaly Back: normal inspection, no CVA tenderness Extremities/Musculoskelatal: no calf tenderness, + inflammation, + slow capillary refill Neurologic/Psych: alert, oriented x 3 Skin: normal color, no rash, + pertinent finding ( open wound right buttock/ upper thigh area with surrounding erythema and crusting of skin) Lymphatic: no adenopathy Laboratory Results RUN DATE: 04/13/16 [facility] LAB PAGE 1 RUN TIME: 1125 Specimen Inquiry PATIENT: KIMBERLEE FROST LOC: PauloJonelle U # : [id number] AGE/SX: 60/M ROOM: [facility] REG : 03/29/[address]: Ventura Vila MD : 1955 BED: 1 DIS : STATUS: ADM IN TLOC: SPEC #: [id number] FRANK: 04/11/16 STATUS: RES REQ #: [id number] RECD: 04/11/[address] [facility] DR: Paz Mccarthy M.D. SOURCE: DRAIN-SURF ENTR: 04/11/[address] [facility] [address]: Dana Kaminski MD SPDESC: LEG Catherine Self M.D. Kopinski, Thomas O., DO Oconer, Joseph N., M.D. Westrick, Diann, M.D. Waddington, Thomas W., MD ORDERED: SURF [facility]ONA COMMENTS: Has Specimen Been Obtained/Collected? Y Procedure Result Verified Site GRAM STAIN Final 04/12/16 RESULT MODERATE GRAM NEGATIVE BACILLI MODERATE GRAM POSITIVE COCCI MODERATE YEAST SURFACE WOUND CULTURE Preliminary 04/13/164368 Organism 1 PSEUDOMONAS AERUGINOSA QUANITY MANY SENS SENSITIVITY TO FOLLOW Organism 2 STAPH SPECIES QUANITY FEW SENS SENSITIVITIES DEPENDENT ON FURTHER IDENTIFICATION Organism 3 STREPTOCOCCUS SPECIES QUANITY RARE SENS SENSITIVITY TO FOLLOW Organism 4 BACILLUS SPECIES NOT ANTHRACIS QUANITY FEW SENS NO SENSITIVITY TO FOLLOW 1. PSEUDOMONAS AERUGINOSA Target Route Dose RX AB Cost M.I.C. IQ ------ ----- ------ -- ------ -------- - ------ CEFTAZIDIME S 8 CEFEPIME S 8 IMIPENEM S 2 AZTREONAM R >16 GENTAMICIN S <=4 TOBRAMYCIN S <=4 AMIKACIN S <=16 CIPROFLOXACIN R >2 LEVOFLOXACIN R >4 PIP/TAZO S 64 S = SENSITIVE I = INTERMEDIATE R = RESISTANT END OF REPORT Last 24 Hours Test 04/13/16 05:25 White Blood Count 6.79 K/uL Red Blood Count 3.31 M/uL Hemoglobin 9.1 g/dL Hematocrit 28.8 % Mean Corpuscular Volume 87.0 fL Mean Corpuscular Hemoglobin 27.5 pg Mean Corpuscular Hemoglobin Concent 31.6 g/dl RDW Standard Deviation 54.9 fL RDW Coefficient of Variation 17.1 % Platelet Count 314 K/uL Mean Platelet Volume 8.4 fL Prothrombin Time 26.1 SECONDS Prothromb Time International Ratio 2.4 Sodium Level 138 mmol/L Potassium Level 4.1 mmol/L Chloride Level 98 mmol/L Carbon Dioxide Level 34 mmol/L Anion Gap 6.0 mmol/L Blood Urea Nitrogen 20 mg/dl Creatinine 1.10 mg/dl Est Creatinine Clear Calc Drug Dose 117.0 ml/min Estimated GFR () 84.7 Estimated GFR (Non- 73.1 BUN/Creatinine Ratio 18.0 Random Glucose 93 mg/dl Calcium Level 9.0 mg/dl Random Vancomycin Level 20.5 mcg/ml SINGLE VIEW CHEST CLINICAL HISTORY: Hypoxia. FINDINGS: An AP, portable, upright chest radiograph is compared to chest x-ray and chest CT dated 03/29/2016. The examination is significantly degraded by portable technique, large body habitus, and patient rotation. A 2-lead cardiac pacemaker is unchanged in position and partially obscures the left lower chest. A tracheostomy is again noted. The heart is enlarged and there is atherosclerotic calcification of the thoracic aorta. Pulmonary vascular congestion persists. This is similar to yesterday. Chronic elevation of the right hemidiaphragm interstitial thickening are unchanged. There are small pleural effusions and bibasilar consolidation, left greater than right. No pneumothorax is seen. The skeletal structures are osteopenic. The bony thorax is grossly intact. IMPRESSION: 1. Cardiomegaly and cardiac pacemaker. Congestive failure persists. 2. There are small pleural effusions and bibasilar consolidation, left greater than right. This is overall similar in appearance to yesterday. Electronically signed by: Alex Pena M.D. Assessment & Plan 60-year-old male with longstanding respiratory failure now with open wound with cellulitis involving right buttock and thigh with cultures positive for resistant Pseudomonas as well as strep and staph species. For now, vancomycin and Zosyn appropriate therapy. Will likely require in the range of 7-10 days. No oral options available for treatment of his pseudomonal infection. Regarding this Pseudomonas in his sputum, given the patient has clinically improved despite antibiotics that should not be effective versus this isolate, I think that further antibiotic therapy directed against this pathogen can be held at the present time, and hopefully this just represents colonization.
--- NOTE | 2016-04-13 11:44 | Pharmacy Progress Note ---
Pharmacy Antibiotic Prog Note Date of Service: Apr 13, 2016. Subjective: The patient is currently receiving vancomycin 2000 mg IV every 24 hours. The patient is currently on day # 3 of 7-10 days of IV therapy. Objective: Height (Feet): 5 Height (Inches): 10.00 Weight (Kilograms): 178.600 Levels: Item Value Date Time Random Vancomycin Level 19.8 mcg/ml 04/12/16 0530 Random Vancomycin Level 20.5 mcg/ml 04/13/16 0525 Lab Results (24hrs): Laboratory Tests Test 04/13/16 05:25 BUN/Creatinine Ratio 18.0 Blood Urea Nitrogen 20 mg/dl Creatinine 1.10 mg/dl White Blood Count 6.79 K/uL Micro Results: RUN DATE: 04/13/16 [facility] LAB PAGE 1 RUN TIME: 1125 Specimen Inquiry PATIENT: KIMBERLEE FROST LOC: [id number] U # : [id number] AGE/SX: 60/M ROOM: [id number] REG : 03/29/[address]: Ventura Vila MD : 1955 BED: 1 DIS : STATUS: ADM IN TLOC: SPEC #: [id number] FRANK: 04/11/16 STATUS: RES REJennifer #: [id number] RECD: 04/11/16 [facility] DR: Paz Mccarthy M.D. SOURCE: DRAIN-SURF ENTR: 04/11/[address] [facility] [address]: Dana Kaminski MD [facility]: LEG RL Catherine Orantes M.D. Kopinski, Thomas O. , Mehul Esquivel M.D. Westrick, Diann, M.D. Waddington, Thomas W., MD ORDERED: SURF [facility] COMMENTS: Has Specimen Been Obtained/Collected? Y Procedure Result Verified Site GRAM STAIN Final 04/12/16 RESULT MODERATE GRAM NEGATIVE BACILLI MODERATE GRAM POSITIVE COCCI MODERATE YEAST SURFACE WOUND CULTURE Preliminary 04/13/16 Organism 1 PSEUDOMONAS AERUGINOSA QUANITY MANY SENS SENSITIVITY TO FOLLOW Organism 2 STAPH SPECIES QUANITY FEW SENS SENSITIVITIES DEPENDENT ON FURTHER IDENTIFICATION Organism 3 STREPTOCOCCUS SPECIES QUANITY RARE SENS SENSITIVITY TO FOLLOW Organism 4 BACILLUS SPECIES NOT ANTHRACIS QUANITY FEW SENS NO SENSITIVITY TO FOLLOW 1. PSEUDOMONAS AERUGINOSA Target Route Dose RX AB Cost M.I.C. IQ ------ ----- ------ -- ------ -------- - ------ CEFTAZIDIME S 8 CEFEPIME S 8 IMIPENEM S 2 AZTREONAM R >16 GENTAMICIN S <=4 TOBRAMYCIN S <=4 AMIKACIN S <=16 CIPROFLOXACIN R >2 LEVOFLOXACIN R >4 PIP/TAZO S 64 S = SENSITIVE I = INTERMEDIATE R = RESISTANT Recent Pertinent Medications: Item Value Date Time Piperacillin Sod/ 120 ml @ 30 mls/hr 04/12/16 2200 Tazobactam Sod Q8H/IV 04/13/16 0547 4.5 gm/Dextrose Assessment & Plan: This drug level is: Slightly Supratherapeutic (level was drawn as a random so true trough is most likely lower) Continue vancomycin 2000 mg IV every 24 hours (based upon previous pharmacokinetic data for the patient, it looks like the patient will require daily dosing even with a creatinine clearance of > 100 ml/min. In order to ensure that supratherapeutic levels are not reached, the next dose of vancomycin is being placed on hold. Can release this dose once the trough is obtained). Goal peak level estimate: between 35 - 40 mcg/mL. Goal trough level estimate: between 15 - 20 mcg/mL (patient previously colonized with MRSA so therefore staph speicies in wound culture will be treated like MRSA until proven otherwise). Trough has been ordered for: prior to 12 pm dose. Pharmacy will continue to follow and will adjust dose/frequency as necessary. Thank you
--- NOTE | 2016-04-13 15:58 | PULMONARY PROGRESS NOTE ---
DATE: 04/13/2016 TIME: 3:35 p.m. SUBJECTIVE: The patient is feeling about the same. He states he still has mucus coming through his tracheal though it is gradually lessening. He denies shortness of breath. He has been getting treatment for the leg infection. He states he notices no discomfort or anything with the leg at all. The patient confirmed with his that he had gotten his noninvasive ventilator from [facility]. However, they have taken the machine back. The patient, I do not believe was aware of that. Thus, using the Trilogy for him is not an option. OBJECTIVE: GENERAL: The patient appears comfortable at rest. VITAL SIGNS: Temperature is 36.8. His voice seemed a little weaker today. The tracheostomy was functioning well. Heart rate is 60 beats per minute. Blood pressure 129/73. LUNGS: Lung olguin revealed clear breath sounds anteriorly. The breath sounds posteriorly and laterally are very diminished. I could not sit the patient forward to examine immediately posteriorly. Oxygen saturation is 96%. This would be on a tracheal collar with 10 liters. ABDOMEN: Remains morbidly obese. EXTREMITIES: Showed no change. IMPRESSION: 1. Respiratory failure - improved. 2. Obesity hypoventilation syndrome. 3. Status post tracheostomy. COMMENTS AND RECOMMENDATIONS: When the patient is discharged to another facility, I would simply leave him on nighttime BiPAP connected to the trachea as he is currently. Clinically, he seems to be about is stable as he is going to be.
--- NOTE | 2016-04-13 20:32 | Progress Note ---
Medicine Progress Note Date & Time of Visit: Apr 13, 2016 at 20:21. Subjective seen resting in bed, watching tv denies dyspnea, chest pain denies pain no other symptoms Objective Last 8 Hrs Date Time Temp Pulse Resp B/P Pulse Ox O2 Delivery O2 Flow Rate FiO2 04/13/16 15:45 37.0 74 15 105/58 96 Trach Collar 9.0 Physical Exam: General- oriented x 3, not in distress, no accessory muscle ude Head- atraumatic Eyes- EOMI, anicteric ENT- trace in place Neck- supple, no JVD Lungs- clear to auscultation b/l Heart- normal rate, regular rhythm; no murmurs Abdomen- normal bowel sounds, soft, nontender Extremities- grade 1-2 edema, no calf tenderness Neuro- alert, oriented x 3; no gross focal deficits Laboratory Results: Last 24 Hours Test 04/13/16 05:25 White Blood Count 6.79 K/uL Red Blood Count 3.31 M/uL Hemoglobin 9.1 g/dL Hematocrit 28.8 % Mean Corpuscular Volume 87.0 fL Mean Corpuscular Hemoglobin 27.5 pg Mean Corpuscular Hemoglobin Concent 31.6 g/dl RDW Standard Deviation 54.9 fL RDW Coefficient of Variation 17.1 % Platelet Count 314 K/uL Mean Platelet Volume 8.4 fL Prothrombin Time 26.1 SECONDS Prothromb Time International Ratio 2.4 Sodium Level 138 mmol/L Potassium Level 4.1 mmol/L Chloride Level 98 mmol/L Carbon Dioxide Level 34 mmol/L Anion Gap 6.0 mmol/L Blood Urea Nitrogen 20 mg/dl Creatinine 1.10 mg/dl Est Creatinine Clear Calc Drug Dose 117.0 ml/min Estimated GFR () 84.7 Estimated GFR (Non- 73.1 BUN/Creatinine Ratio 18.0 Random Glucose 93 mg/dl Calcium Level 9.0 mg/dl Random Vancomycin Level 20.5 mcg/ml Assessment & Plan Acute on chronic hypoxic respiratory failure - obesity hypoventilation s/p tracheostomy Pulmonology consulted started pt on Pulmozyme recommend to continue Bipap Zosyn discontinued as Pseudomonas felt to be colonization CELLULITIS /OPEN WOUND ON RT LOWER LEG: pt to have large open wound with drainage underneath rt lower leg wound culture and gram stain -growing pseudomonas /staph /gram positive cocci / gram positive bacilli - ID on board continue Vancomycin /Zosyn wound care nurse following DEPRESSION Psych was consulted denies of any depressive symptom Zoloft Increased to 50mg PO daily periodic monitoring of EKG for Qtc prolongation Metabolic encephalopathy resolved due to hypercapnia /respiratory failure -CT head negative Urinary retention on chronic indwelling Fitch - Right renal mass seen on CT February; -Follows with Dr. Persaud as an outpatient Idiopathic cardiomyopathy /with CHF chronic diastolic dysfunction Ejection Fraction 45-50% euvolemic cont Lasix to PO 40 mg BID Hx Atrial flutter with RVR and Sick sinus syndrome s/p dual chamber pacemaker - rate is controlled - Continue amiodarone and metoprolol INR 2.4 x 2 days hold Coumadin PRESSURE ULCER : - Morbid obesity/bed bound -has multiple skin break down -pt has been refusing to be turned by nursing to provide skin care - wound care consulted- multiple wounds on buttock and leg area noted , dressing applied with Optifoam Hypothyroidism - Continue levothyroxine Chronic normocytic anemia (anemia of chronic disease) - Hbg stable -monitor CBC VTE Prophylaxis - on warfarin INR 2.4. 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 Psych Wound Care Current Inpatient Medications: Current Inpatient Medications Medications (Trade) Dose Ordered Sig/Kelly Route Start Time Stop Time Status Last Admin Dose Admin Acetaminophen/ Empty Bag (Ofirmev IV/ Empty Iv Bag 100ml) 65 ml @ 260 mls/hr Q6H PRN IV 03/29/16 07:30 04/28/16 07:29 Heparin Sodium (Porcine) (Heparin Sq 5000 Unit/0.5ml) 5,000 unit Q8 SQ 03/30/16 16:00 04/29/16 15:59 04/13/16 14:39 5,000 UNIT Warfarin Sodium (Coumadin Tab) 5 mg DAILY@16 PO 03/30/16 16:00 04/29/16 15:59 Future Hold 04/11/16 15:50 5 MG Pantoprazole Sodium (Protonix Tab) 40 mg QAM PO 04/01/16 09:00 05/01/16 08:59 04/13/16 09:15 40 MG Atorvastatin Calcium (Lipitor Tab) 10 mg HS PO 03/31/16 21:00 04/30/16 20:59 04/12/16 21:21 10 MG Levothyroxine Sodium (Synthroid Tab) 100 mcg DAILYBB PO 04/01/16 06:00 05/01/16 05:59 04/13/16 08:12 100 MCG Multivitamins/ Minerals (Multivitamin W/ Minerals Tab) 1 tab DAILY PO 04/01/16 09:00 05/01/16 08:59 04/13/16 09:15 1 TAB Tamsulosin HCl (Flomax Cap) 0.4 mg HS PO 03/31/16 21:00 04/30/16 20:59 04/12/16 21:21 0.4 MG Amiodarone HCl (Cordarone Tab) 100 mg QAM PO 04/01/16 09:00 05/01/16 08:59 04/13/16 09:16 100 MG Metoprolol Succinate (Toprol Xl Tab) 25 mg QAM PO 04/01/16 09:00 05/01/16 08:59 04/13/16 09:15 25 MG Potassium/ Phosphorus/Sodium (Phospha 250 Neutral 155-852-130 Mg) 1 tab BID PO 04/01/16 20:00 05/01/16 20:59 04/13/16 09:16 1 TAB Potassium Chloride (Klor-Con Pwd) 20 meq BID PO 04/01/16 20:00 05/01/16 20:59 04/13/16 09:16 20 MEQ Tramadol HCl (Ultram Tab) 50 mg Q6H PRN PO 04/03/16 02:15 05/03/16 02:14 04/11/16 12:36 50 MG Heparin Sodium (Porcine) (Heparin 10 Unit/ ml 5 ml Flush) 5 ml PRN PRN FLUSH 04/04/16 08:30 05/04/16 08:29 04/13/16 18:53 5 ML Ipratropium [place] (Atrovent Hfa Inhaler) 4 puffs Q6 INH 04/06/16 18:00 05/06/16 17:59 04/13/16 18:53 4 PUFFS Albuterol (Ventolin Hfa Inhaler) 4 puffs Q6 INH 04/06/16 18:00 05/06/16 17:59 04/13/16 18:53 4 PUFFS Docusate Sodium (coLACE CAP) 100 mg BID PO 04/06/16 20:00 05/06/16 19:59 04/13/16 09:16 100 MG Polyethylene (Miralax Powder Packet) 17 gm DAILY PO 04/06/16 15:15 05/06/16 15:14 04/06/16 16:17 17 GM Bisacodyl (Dulcolax Tab) 5 mg DAILY PRN PO 04/06/16 15:15 05/06/16 15:14 Furosemide (Lasix tab) 40 mg BID17 PO 04/08/16 17:00 05/08/16 16:59 04/13/16 17:10 40 MG Miconazole Nitrate (Desenex Powder) 1 appln PRN PRN EXT 04/08/16 15:15 05/08/16 15:14 Sertraline HCl (Zoloft Tab) 100 mg QAM PO 04/10/16 08:00 05/10/16 07:59 04/13/16 09:15 100 MG Vancomycin HCl 1 ea 1 ea UD PRN N/A 04/11/16 18:45 05/11/16 18:44 Vancomycin HCl/ Sodium Chloride (Vancomycin Inj/ Nss 500ml) 540 ml @ 200 mls/hr DAILY@1200 IV 04/12/16 12:30 04/22/16 12:29 Future Hold 04/13/16 11:29 200 MLS/HR Piperacillin Sod/ Tazobactam Sod 1 ea 1 ea UD PRN N/A 04/12/16 21:30 05/12/16 21:29 Piperacillin Sod/ Tazobactam Sod/ Dextrose (Zosyn Iv/D5 100ml) 120 ml @ 30 mls/hr Q8H IV 04/12/16 22:00 04/22/16 21:59 04/13/16 14:35 30 MLS/HR
[2016-04-13] MEDS: ATORVASTATIN 10 MG TAB PO SCH (22:03)
[2016-04-13] MEDS: TAMSULOSIN HCL 0.4 MG CAP PO SCH (22:03)
[2016-04-14] VITALS (7 sets, daily range): BP systolic 89–119; BP diastolic 57–67; PULSE 53–95; TEMP 36.8–37.2; O2SAT 95–97
[2016-04-14 06:04] LABS: HEMATOCRIT 29.2 % (42-52); MEAN CELL VOLUME 85.4 fL (80-100); MEAN CORPUSCULAR HEMOGLOBIN 27.2 pg (25-34); MEAN CORPUSCULAR HGB CONC 31.8 g/dl (32-36); MEAN PLATELET VOLUME 8.2 fL (7.4-10.4); PLATELET COUNT 301 K/uL (130-400); RED BLOOD COUNT 3.42 M/uL (4.7-6.1); WHITE BLOOD COUNT 7.43 K/uL (4.8-10.8)
[2016-04-14 06:14] LABS: INR 2.2 (0.9-1.1); PROTHROMBIN TIME (PATIENT) 23.8 SECONDS (9.0-12.0)
[2016-04-14] MEDS: PIPERACILL/TAZOBAC IV 4.5 GM in DEXTROSE 5% 100ML IV SCH ×3 (06:25→21:25)
[2016-04-14] MEDS: ALBUTEROL HFA 8 GM INHALER INH SCH ×4 (06:25→19:08)
[2016-04-14] MEDS: IPRATROPIUM BROMIDE HFA INHALER INH SCH ×4 (06:25→19:08)
[2016-04-14] MEDS: LEVOTHYROXINE 100 MCG TAB PO SCH (06:26)
[2016-04-14] MEDS: HEPARIN SOD 5000 UNIT/0.5 ML CARP SQ SCH ×3 (06:29→21:25)
[2016-04-14 06:36] LABS: BUN/CREATININE RATIO 15.3 (10-20); CALCIUM 9.1 mg/dl (8.5-10.1); CREATININE 1.1 mg/dl (0.60-1.40); POTASSIUM 3.8 mmol/L (3.5-5.1)
[2016-04-14] MEDS: DOCUSATE SODIUM 100 MG CAP PO SCH ×2 (09:00→21:06)
[2016-04-14] MEDS: METOPROLOL SUCC 25MG EXT REL TAB PO SCH (09:01)
[2016-04-14] MEDS: POTASSIUM CHLORIDE PWD 20 MEQ PACK PO SCH ×2 (09:01→21:07)
[2016-04-14] MEDS: PANTOprazole SOD 40 MG TAB PO SCH (09:01)
[2016-04-14] MEDS: AMIODARONE 200 MG TAB PO SCH (09:01)
[2016-04-14] MEDS: CEROVITE ADV FORMULA TAB PO SCH (09:01)
[2016-04-14] MEDS: SERTRALINE HCL 100 MG TAB PO SCH (09:01)
[2016-04-14] MEDS: POLYETHYLENE (MIRALAX) 17 GM PACK PO SCH (09:02)
[2016-04-14] MEDS: FUROSEMIDE 40 MG TAB PO SCH ×2 (09:02→17:18)
[2016-04-14] MEDS ORDERED: VANCOMYCIN TROUGH SCH (11:30)
--- NOTE | 2016-04-14 13:20 | Pharmacy Progress Note ---
Pharmacy Antibiotic Prog Note Date of Service: Apr 14, 2016. Subjective: The patient is currently receiving vancomycin and piperacillin/tazobactam for the treatement of lower extremity cellulitis. The patient is currently on day # 4 of broad-spectrum antibiotic IV therapy. Objective: Height (Feet): 5 Height (Inches): 10.00 Weight (Kilograms): 178.600 Levels: Item Value Date Time Vancomycin Level Trough 18.7 mcg/ml 04/14/16 1130 Random Vancomycin Level 20.5 mcg/ml 04/13/16 0525 Random Vancomycin Level 19.8 mcg/ml 04/12/16 0530 Random Vancomycin Level 19.9 mcg/ml 03/30/16 0505 Lab Results (24hrs): Laboratory Tests Test 04/14/16 05:30 BUN/Creatinine Ratio 15.3 Blood Urea Nitrogen 17 mg/dl Creatinine 1.10 mg/dl White Blood Count 7.43 K/uL Micro Results: Item Value Date Time Gram Stain - Final Complete 04/11/16 145 Drainage - Surface Leg Right Lower SPEC #: [id number] FRANK: 04/11/16 STATUS: COMP REQ #: [id number] RECD: 04/11/[address] [facility] [address]: Paz Mccarthy M.D. SOURCE: DRAIN-SURF ENTR: 04/11/[address]: Dana Kaminski MD SPDC: LEG RL Catherine Orantes M.D. Kopinski, Thomas O., DO Oconer, Joseph N., M.D. Westrick, Diann, M.D. Waddington, Thomas W., MD ORDERED: [facility] COMMENTS: Has Specimen Been Obtained/Collected? Y Procedure Result Verified Site GRAM STAIN Final 04/12/16-708 RESULT MODERATE GRAM NEGATIVE BACILLI MODERATE GRAM POSITIVE COCCI MODERATE YEAST SURFACE WOUND CULTURE Final 04/14/16-1213 Organism 1 PSEUDOMONAS AERUGINOSA QUANITY MANY SENS SENSITIVITY TO FOLLOW Organism 2 COAG NEG STAPHYLOCOCCUS QUANITY FEW SENS NO SENSITIVITY TO FOLLOW Organism 3 ENTEROCOCCUS FAECALIS QUANITY RARE SENS SENSITIVITY TO FOLLOW Organism 4 BACILLUS SPECIES NOT ANTHRACIS QUANITY FEW SENS NO SENSITIVITY TO FOLLOW PSEUD AERG E FAECALIS M.I.C. RX M.I.C. RX --------- ------ --------- ------ AMPICILLIN <=2 S CEFTAZIDIME 8 S CEFEPIME 8 S IMIPENEM 2 S GENT SYNERGY <=500 S AZTREONAM >16 R VANCOMYCIN 2 S PENICILLIN 2 S GENTAMICIN <=4 S TOBRAMYCIN <=4 S AMIKACIN <=16 S CIPROFLOXACIN >2 R LEVOFLOXACIN >4 R DAPTOMYCIN 1 S PIP/TAZO 64 S Assessment & Plan: Assessment: * 60 y/o who is frequently admitted to [facility] * history of MDRO, specifically MRSA and Pseudomonas aeruginosa * Currently being treated for cellulitis of the lower extremity with vancomycin and piperacillin/tazobactam * Vancomycin quite difficult to dose secondary to body habitus * historically, the patient requires significantly less vancomycin than population kinetics would predict. Plan: * Continue both Vancomycin and Piperacillin/tazobactam per ID recommendations Vancomycin: * Trough level today represented a therapeutic level, however it is likely that Mr. Gusman will continue to accumulate drug. * Give a one time dose today of Vancomycin 2000mg IV x1 * Re-draw level with AM labs tomorrow (to reduce lab draws) and continue to extrapolate/re-dose when necessary Piperacillin/tazobactam: * Continue 4.5g IV q8H * higher dose chosen for BMI >35kg/m2 * no dose adj for CrCl above 20mL/min Pharmacy will continue to follow and will adjust dose/frequency as necessary. Thank you
[2016-04-14] MEDS ORDERED: VANCOMYCIN INJ 2,000 MG in SODIUM CHLORIDE 0.9% 500ML 500 ML IV SCH (13:30)
[2016-04-14] MEDS ORDERED: WARFARIN SOD 3 MG TAB PO ONE (18:56)
--- NOTE | 2016-04-14 19:25 | Progress Note ---
Medicine Progress Note Date & Time of Visit: Apr 14, 2016 at 19:21. Subjective patient states he feels ok overall denies dyspnea, chest pain denies pain comfortable, watching tv Objective Last 8 Hrs Date Time Temp Pulse Resp B/P Pulse Ox O2 Delivery O2 Flow Rate FiO2 04/14/16 16:00 95 Trach Collar 10.0 Free Flow/Blowby 04/14/16 15:10 36.8 60 16 106/64 95 Trach Collar Physical Exam: General- oriented x 3, not in distress, no accessory muscle ude Eyes- anicteric ENT- trach in place Neck- no JVD Lungs- clear to auscultation b/l, no rales/wheeze Heart- normal rate, regular rhythm; no murmurs Abdomen- normal bowel sounds, soft, nontender Extremities- grade 1-2 edema, no calf tenderness Neuro- alert, oriented x 3; no gross focal deficits Laboratory Results: Last 24 Hours Test 04/14/16 05:30 04/14/16 11:30 White Blood Count 7.43 K/uL Red Blood Count 3.42 M/uL Hemoglobin 9.3 g/dL Hematocrit 29.2 % Mean Corpuscular Volume 85.4 fL Mean Corpuscular Hemoglobin 27.2 pg Mean Corpuscular Hemoglobin Concent 31.8 g/dl RDW Standard Deviation 53.1 fL RDW Coefficient of Variation 17.3 % Platelet Count 301 K/uL Mean Platelet Volume 8.2 fL Prothrombin Time 23.8 SECONDS Prothromb Time International Ratio 2.2 Sodium Level 138 mmol/L Potassium Level 3.8 mmol/L Chloride Level 97 mmol/L Carbon Dioxide Level 36 mmol/L Anion Gap 5.0 mmol/L Blood Urea Nitrogen 17 mg/dl Creatinine 1.10 mg/dl Est Creatinine Clear Calc Drug Dose 117.9 ml/min Estimated GFR () 84.7 Estimated GFR (Non- 73.1 BUN/Creatinine Ratio 15.3 Random Glucose 92 mg/dl Calcium Level 9.1 mg/dl Vancomycin Level Trough 18.7 mcg/ml Assessment & Plan Acute on chronic hypoxic respiratory failure - obesity hypoventilation s/p tracheostomy Pulmonology consulted started pt on Pulmozyme recommend to continue Bipap Zosyn discontinued as Pseudomonas felt to be colonization - stable CELLULITIS /OPEN WOUND ON RT LOWER LEG: pt to have large open wound with drainage underneath rt lower leg wound culture and gram stain -growing pseudomonas /staph /gram positive cocci / gram positive bacilli - ID on board continue Vancomycin /Zosyn wound care nurse following DEPRESSION Psych was consulted, denies of any depressive symptom Zoloft Increased to 50mg PO daily periodic monitoring of EKG for Qtc prolongation Metabolic encephalopathy resolved due to hypercapnia /respiratory failure -CT head negative Urinary retention on chronic indwelling Fitch - Right renal mass seen on CT February; - Follows with Dr. Persaud as an outpatient Idiopathic cardiomyopathy /with CHF chronic diastolic dysfunction Ejection Fraction 45-50% no signs of overt failure cont Lasix to PO 40 mg BID Hx Atrial flutter with RVR and Sick sinus syndrome s/p dual chamber pacemaker - rate is controlled - Continue amiodarone and metoprolol INR 2.2 resume Coumadin 3mg PRESSURE ULCER : - Morbid obesity/bed bound -has multiple skin break down -pt has been refusing to be turned by nursing to provide skin care - wound care consulted- multiple wounds on buttock and leg area noted , dressing applied with Optifoam Hypothyroidism - Continue levothyroxine Chronic normocytic anemia (anemia of chronic disease) - stable - monitor CBC VTE Prophylaxis - on warfarin INR 2.2 GI Prophylaxis - Pantoprazole 40 mg Code - Full no cardioversion Disposition to be determined does not have Bed availability in LTAC is unable to take care of pt at home repeated admission with Pneumonia, lower ext wound infection will need placement Social service following for discharge planning Consultants: Pulmonology PT/OT Scientific Director Cardio Psych Wound Care Current Inpatient Medications: Current Inpatient Medications Medications (Trade) Dose Ordered Sig/Kelly Route Start Time Stop Time Status Last Admin Dose Admin Acetaminophen/ Empty Bag (Ofirmev IV/ Empty Iv Bag 100ml) 65 ml @ 260 mls/hr Q6H PRN IV 03/29/16 07:30 04/28/16 07:29 Heparin Sodium (Porcine) (Heparin Sq 5000 Unit/0.5ml) 5,000 unit Q8 SQ 03/30/16 16:00 04/29/16 15:59 04/14/16 13:57 5,000 UNIT Pantoprazole Sodium (Protonix Tab) 40 mg QAM PO 04/01/16 09:00 05/01/16 08:59 04/14/16 09:01 40 MG Atorvastatin Calcium (Lipitor Tab) 10 mg HS PO 03/31/16 21:00 04/30/16 20:59 04/13/16 22:03 10 MG Levothyroxine Sodium (Synthroid Tab) 100 mcg DAILYBB PO 04/01/16 06:00 05/01/16 05:59 04/14/16 06:26 100 MCG Multivitamins/ Minerals (Multivitamin W/ Minerals Tab) 1 tab DAILY PO 04/01/16 09:00 05/01/16 08:59 04/14/16 09:01 1 TAB Tamsulosin HCl (Flomax Cap) 0.4 mg HS PO 03/31/16 21:00 04/30/16 20:59 04/13/16 22:03 0.4 MG Amiodarone HCl (Cordarone Tab) 100 mg QAM PO 04/01/16 09:00 05/01/16 08:59 04/14/16 09:01 100 MG Metoprolol Succinate (Toprol Xl Tab) 25 mg QAM PO 04/01/16 09:00 05/01/16 08:59 04/14/16 09:01 25 MG Potassium Chloride (Klor-Con Pwd) 20 meq BID PO 04/01/16 20:00 05/01/16 20:59 04/14/16 09:01 20 MEQ Tramadol HCl (Ultram Tab) 50 mg Q6H PRN PO 04/03/16 02:15 05/03/16 02:14 04/11/16 12:36 50 MG Heparin Sodium (Porcine) (Heparin 10 Unit/ ml 5 ml Flush) 5 ml PRN PRN FLUSH 04/04/16 08:30 05/04/16 08:29 04/14/16 11:34 5 ML Ipratropium [place] (Atrovent Hfa Inhaler) 4 puffs Q6 INH 04/06/16 18:00 05/06/16 17:59 04/14/16 11:42 4 PUFFS Albuterol (Ventolin Hfa Inhaler) 4 puffs Q6 INH 04/06/16 18:00 05/06/16 17:59 04/14/16 11:42 4 PUFFS Docusate Sodium (coLACE CAP) 100 mg BID PO 04/06/16 20:00 05/06/16 19:59 04/14/16 09:00 100 MG Polyethylene (Miralax Powder Packet) 17 gm DAILY PO 04/06/16 15:15 05/06/16 15:14 04/06/16 16:17 17 GM Bisacodyl (Dulcolax Tab) 5 mg DAILY PRN PO 04/06/16 15:15 05/06/16 15:14 Furosemide (Lasix tab) 40 mg BID17 PO 04/08/16 17:00 05/08/16 16:59 04/14/16 17:18 40 MG Miconazole Nitrate (Desenex Powder) 1 appln PRN PRN EXT 04/08/16 15:15 05/08/16 15:14 Sertraline HCl (Zoloft Tab) 100 mg QAM PO 04/10/16 08:00 05/10/16 07:59 04/14/16 09:01 100 MG Vancomycin HCl (Consult) 1 ea UD PRN N/A 04/11/16 18:45 05/11/16 18:44 Piperacillin Sod/ Tazobactam Sod 1 ea 1 ea UD PRN N/A 04/12/16 21:30 05/12/16 21:29 Piperacillin Sod/ Tazobactam Sod/ Dextrose (Zosyn Iv/D5 100ml) 120 ml @ 30 mls/hr Q8H IV 04/12/16 22:00 04/22/16 21:59 04/14/16 13:55 30 MLS/HR Warfarin Sodium (Coumadin Tab) 3 mg DAILY@16 PO 04/15/16 16:00 05/15/16 15:59
--- NOTE | 2016-04-14 20:00 | Infectious Disease Progress Nt ---
Progress Note Date of Service Apr 14, 2016. Subjective Pt evaluation today including: conversation w/ patient, chart review, lab review, review of studies, conversation w/ dairy consultant, review of inpatient medication list patient offering no new specific complaints today. Remains afebrile. No increase in shortness of breath or cough. Tolerating antibiotics without apparent difficulty. All Other Systems: Reviewed and Negative Medications Current Inpatient Medications Medications (Trade) Dose Ordered Sig/Kelly Route Start Time Stop Time Status Last Admin Dose Admin Acetaminophen/ Empty Bag (Ofirmev IV/ Empty Iv Bag 100ml) 65 ml @ 260 mls/hr Q6H PRN IV 03/29/16 07:30 04/28/16 07:29 Heparin Sodium (Porcine) (Heparin Sq 5000 Unit/0.5ml) 5,000 unit Q8 SQ 03/30/16 16:00 04/29/16 15:59 04/14/16 13:57 5,000 UNIT Pantoprazole Sodium (Protonix Tab) 40 mg QAM PO 04/01/16 09:00 05/01/16 08:59 04/14/16 09:01 40 MG Atorvastatin Calcium (Lipitor Tab) 10 mg HS PO 03/31/16 21:00 04/30/16 20:59 04/13/16 22:03 10 MG Levothyroxine Sodium (Synthroid Tab) 100 mcg DAILYBB PO 04/01/16 06:00 05/01/16 05:59 04/14/16 06:26 100 MCG Multivitamins/ Minerals (Multivitamin W/ Minerals Tab) 1 tab DAILY PO 04/01/16 09:00 05/01/16 08:59 04/14/16 09:01 1 TAB Tamsulosin HCl (Flomax Cap) 0.4 mg HS PO 03/31/16 21:00 04/30/16 20:59 04/13/16 22:03 0.4 MG Amiodarone HCl (Cordarone Tab) 100 mg QAM PO 04/01/16 09:00 05/01/16 08:59 04/14/16 09:01 100 MG Metoprolol Succinate (Toprol Xl Tab) 25 mg QAM PO 04/01/16 09:00 05/01/16 08:59 04/14/16 09:01 25 MG Potassium Chloride (Klor-Con Pwd) 20 meq BID PO 04/01/16 20:00 05/01/16 20:59 04/14/16 09:01 20 MEQ Tramadol HCl (Ultram Tab) 50 mg Q6H PRN PO 04/03/16 02:15 05/03/16 02:14 04/11/16 12:36 50 MG Heparin Sodium (Porcine) (Heparin 10 Unit/ ml 5 ml Flush) 5 ml PRN PRN FLUSH 04/04/16 08:30 05/04/16 08:29 04/14/16 19:09 5 ML Ipratropium [place] (Atrovent Hfa Inhaler) 4 puffs Q6 INH 04/06/16 18:00 05/06/16 17:59 04/14/16 19:08 4 PUFFS Albuterol (Ventolin Hfa Inhaler) 4 puffs Q6 INH 04/06/16 18:00 05/06/16 17:59 04/14/16 19:08 4 PUFFS Docusate Sodium (coLACE CAP) 100 mg BID PO 04/06/16 20:00 05/06/16 19:59 04/14/16 09:00 100 MG Polyethylene (Miralax Powder Packet) 17 gm DAILY PO 04/06/16 15:15 05/06/16 15:14 04/06/16 16:17 17 GM Bisacodyl (Dulcolax Tab) 5 mg DAILY PRN PO 04/06/16 15:15 05/06/16 15:14 Furosemide (Lasix tab) 40 mg BID17 PO 04/08/16 17:00 05/08/16 16:59 04/14/16 17:18 40 MG Miconazole Nitrate (Desenex Powder) 1 appln PRN PRN EXT 04/08/16 15:15 05/08/16 15:14 Sertraline HCl (Zoloft Tab) 100 mg QAM PO 04/10/16 08:00 05/10/16 07:59 04/14/16 09:01 100 MG Vancomycin HCl (Consult) 1 ea UD PRN N/A 04/11/16 18:45 05/11/16 18:44 Piperacillin Sod/ Tazobactam Sod 1 ea 1 ea UD PRN N/A 04/12/16 21:30 05/12/16 21:29 Piperacillin Sod/ Tazobactam Sod/ Dextrose (Zosyn Iv/D5 100ml) 120 ml @ 30 mls/hr Q8H IV 04/12/16 22:00 04/22/16 21:59 04/14/16 13:55 30 MLS/HR Warfarin Sodium (Coumadin Tab) 3 mg DAILY@16 PO 04/15/16 16:00 05/15/16 15:59 Objective Vital Signs Date Time Temp Pulse Resp B/P Pulse Ox O2 Delivery O2 Flow Rate FiO2 04/14/16 16:00 95 Trach Collar 10.0 Free Flow/Blowby 04/14/16 15:10 36.8 60 16 106/64 95 Trach Collar 04/14/16 11:03 Trach Collar 04/14/16 08:09 36.9 60 16 119/67 96 Trach Collar 04/14/16 03:53 62 96 40 04/14/16 00:33 37.2 53 20 89/57 96 Room Air 04/14/16 00:08 66 96 40 04/14/16 00:00 Trach Collar 10.0 40 Free Flow/Blowby Physical Exam General Appearance: WD/WN, no apparent distress Eyes: normal inspection, EOMI, sclerae normal ENT: normal ENT inspection, pharynx normal Neck: supple, no adenopathy, trachea midline Respiratory/Chest: chest non-tender, lungs clear, no respiratory distress, + decreased breath sounds Cardiovascular: regular rate, rhythm, no gallop, no murmur Abdomen: normal bowel sounds, non tender, soft, no organomegaly Extremities: + inflammation, + swelling, + pertinent finding ( Slightly improved swelling right leg) Neurologic/Psychiatric: alert, oriented x 3 Skin: normal color, no rash, + pertinent finding ( slightly improved erythema right thigh) Lymphatic: no adenopathy Laboratory Results Last 24 Hours Test 04/14/16 05:30 04/14/16 11:30 White Blood Count 7.43 K/uL Red Blood Count 3.42 M/uL Hemoglobin 9.3 g/dL Hematocrit 29.2 % Mean Corpuscular Volume 85.4 fL Mean Corpuscular Hemoglobin 27.2 pg Mean Corpuscular Hemoglobin Concent 31.8 g/dl RDW Standard Deviation 53.1 fL RDW Coefficient of Variation 17.3 % Platelet Count 301 K/uL Mean Platelet Volume 8.2 fL Prothrombin Time 23.8 SECONDS Prothromb Time International Ratio 2.2 Sodium Level 138 mmol/L Potassium Level 3.8 mmol/L Chloride Level 97 mmol/L Carbon Dioxide Level 36 mmol/L Anion Gap 5.0 mmol/L Blood Urea Nitrogen 17 mg/dl Creatinine 1.10 mg/dl Est Creatinine Clear Calc Drug Dose 117.9 ml/min Estimated GFR () 84.7 Estimated GFR (Non- 73.1 BUN/Creatinine Ratio 15.3 Random Glucose 92 mg/dl Calcium Level 9.1 mg/dl Vancomycin Level Trough 18.7 mcg/ml Assessment and Plan 60-year-old male with longstanding respiratory failure now with open wound with cellulitis involving right buttock and thigh with cultures positive for resistant Pseudomonas as well as strep and staph species. For now, vancomycin and Zosyn appropriate therapy. Will likely require in the range of 7-10 days. No oral options available for treatment of his pseudomonal infection. Regarding this Pseudomonas in his sputum, given the patient has clinically improved despite antibiotics that should not be effective versus this isolate, I think that further antibiotic therapy directed against this pathogen can be held at the present time, and hopefully this just represents colonization.
[2016-04-14] MEDS: TAMSULOSIN HCL 0.4 MG CAP PO SCH (21:08)
[2016-04-14] MEDS: ATORVASTATIN 10 MG TAB PO SCH (21:08)
[2016-04-15 00:22] VITALS: BP 139/80; PULSE 70; TEMP 36.6; O2SAT 94
[2016-04-15] MEDS: IPRATROPIUM BROMIDE HFA INHALER INH SCH ×4 (00:35→19:18)
[2016-04-15] MEDS: ALBUTEROL HFA 8 GM INHALER INH SCH ×4 (00:35→19:18)
[2016-04-15] MEDS: PIPERACILL/TAZOBAC IV 4.5 GM in DEXTROSE 5% 100ML IV SCH ×3 (05:45→21:15)
[2016-04-15] MEDS: HEPARIN SOD 5000 UNIT/0.5 ML CARP SQ SCH ×3 (05:45→21:19)
[2016-04-15] MEDS: LEVOTHYROXINE 100 MCG TAB PO SCH (05:46)
[2016-04-15] MEDS: POLYETHYLENE (MIRALAX) 17 GM PACK PO SCH (08:00)
[2016-04-15] MEDS: DOCUSATE SODIUM 100 MG CAP PO SCH ×2 (08:21→19:18)
[2016-04-15] MEDS: AMIODARONE 200 MG TAB PO SCH (08:21)
[2016-04-15] MEDS: PANTOprazole SOD 40 MG TAB PO SCH (08:21)
[2016-04-15] MEDS: METOPROLOL SUCC 25MG EXT REL TAB PO SCH (08:21)
[2016-04-15] MEDS: SERTRALINE HCL 100 MG TAB PO SCH (08:21)
[2016-04-15] MEDS: FUROSEMIDE 40 MG TAB PO SCH ×2 (08:21→15:53)
[2016-04-15] MEDS: CEROVITE ADV FORMULA TAB PO SCH (08:21)
[2016-04-15 08:22] VITALS: BP 133/76; PULSE 58; TEMP 36.6; O2SAT 100
[2016-04-15] MEDS: POTASSIUM CHLORIDE PWD 20 MEQ PACK PO SCH ×2 (08:22→19:18)
[2016-04-15 08:42] LABS: INR 2.1 (0.9-1.1); PROTHROMBIN TIME (PATIENT) 23.3 SECONDS (9.0-12.0)
--- NOTE | 2016-04-15 09:18 | Pharmacy Progress Note ---
Pharmacy Progress Note Pharmacy Antibiotic Prog Note Date of Service: Apr 14, 2016. Subjective: The patient is currently receiving vancomycin and piperacillin/tazobactam for the treatment of lower extremity cellulitis. The patient is currently on day # 5 of broad-spectrum antibiotic IV therapy. Objective: Height (Feet): 5 Height (Inches): 10.00 Weight (Kilograms): 178.600 Levels: Item Value Date Time Random Vancomycin Level 21.2 mcg/ml 04/15/16 0807 Micro Results: Item Value Date Time Gram Stain - Final Complete 04/11/161449 Drainage - Surface Leg Right Lower SPEC #: [id number] FRANK: 04/11/16 STATUS: COMP REQ #: [id number] RECD: 04/11/[address]: Paz Mccarthy M.D. SOURCE: DRAIN-SURF ENTR: 04/11/[address]: Dana Kaminski MD SPDESC: LEG Catherine Self M.D. Kopinski, Thomas O. , Mehul Esquivel M.D. Westrick, Diann, M.D. Waddington, Thomas W., MD ORDERED: SURF WND CU/[facility] COMMENTS: Has Specimen Been Obtained/Collected? Y Procedure Result Verified Site GRAM STAIN Final 04/12/16 RESULT MODERATE GRAM NEGATIVE BACILLI MODERATE GRAM POSITIVE COCCI MODERATE YEAST SURFACE WOUND CULTURE Final 04/14/16-1213 Organism 1 PSEUDOMONAS AERUGINOSA QUANITY MANY SENS SENSITIVITY TO FOLLOW Organism 2 COAG NEG STAPHYLOCOCCUS QUANITY FEW SENS NO SENSITIVITY TO FOLLOW Organism 3 ENTEROCOCCUS FAECALIS QUANITY RARE SENS SENSITIVITY TO FOLLOW Organism 4 BACILLUS SPECIES NOT ANTHRACIS QUANITY FEW SENS NO SENSITIVITY TO FOLLOW PSEUD AERG E FAECALIS M.I.C. RX M.I.C. RX --------- ------ --------- ------ AMPICILLIN <=2 S CEFTAZIDIME 8 S CEFEPIME 8 S IMIPENEM 2 S GENT SYNERGY <=500 S AZTREONAM >16 R VANCOMYCIN 2 S PENICILLIN 2 S GENTAMICIN <=4 S TOBRAMYCIN <=4 S AMIKACIN <=16 S CIPROFLOXACIN >2 R LEVOFLOXACIN >4 R DAPTOMYCIN 1 S PIP/TAZO 64 S Assessment & Plan: Assessment: * 60 y/o who is frequently admitted to [facility] * history of MDRO, specifically MRSA and Pseudomonas aeruginosa * Currently being treated for cellulitis of the lower extremity with vancomycin and piperacillin/tazobactam * Vancomycin quite difficult to dose secondary to body habitus * historically, the patient requires significantly less vancomycin than population kinetics would predict. Plan: * Continue both Vancomycin and Piperacillin/tazobactam per ID recommendations (7 -10 days total) Vancomycin: * Trough level today represented a therapeutic level, however it is likely that Mr. Gusman will continue to accumulate drug. * Begin Vancomycin 2000mg IV every 30 hours * Redraw trough prior to 09:00 dose on 04/18/16 * will place 09:00 dose on hold so that level can be assessed prior to administration Piperacillin/tazobactam: * Continue 4.5g IV q8H * higher dose chosen for BMI >35kg/m2 * no dose adj for CrCl above 20mL/min Pharmacy will continue to follow and will adjust dose/frequency as necessary. Thank you <Electronically signed by Jenny Tan Pharm.D.>
[2016-04-15 15:47] VITALS: BP 109/63; PULSE 60; TEMP 36.9; O2SAT 96
[2016-04-15] MEDS: WARFARIN SOD 3 MG TAB PO SCH (15:52)
[2016-04-15] MEDS: VANCOMYCIN INJ 2,000 MG in SODIUM CHLORIDE 0.9% 500ML 500 ML IV SCH (21:14)
[2016-04-15] MEDS: ATORVASTATIN 10 MG TAB PO SCH (21:16)
[2016-04-15] MEDS: TAMSULOSIN HCL 0.4 MG CAP PO SCH (21:16)
--- NOTE | 2016-04-15 21:45 | Progress Note ---
Medicine Progress Note Date & Time of Visit: Apr 15, 2016 at 21:40. Subjective patient seen watching tv comfortable denies dyspnea, cough, chest pain no pain no other symptoms Objective Last 8 Hrs Date Time Temp Pulse Resp B/P Pulse Ox O2 Delivery O2 Flow Rate FiO2 04/15/16 16:00 Trach Collar 04/15/16 15:47 36.9 60 20 109/63 96 Trach Collar 8.0 Physical Exam: General- oriented x 3, not in distress, no accessory muscle ude Eyes- anicteric ENT- trach in place Neck- no JVD Lungs- clear breath sounds b/l, no rales/wheeze Heart- normal rate, regular rhythm; no murmurs Abdomen- normal bowel sounds, soft, nontender Extremities- grade 1-2 edema, no calf tenderness Neuro- alert, oriented x 3; no gross focal deficits Laboratory Results: Last 24 Hours Test 04/15/16 08:07 Prothrombin Time 23.3 SECONDS Prothromb Time International Ratio 2.1 Random Vancomycin Level 21.2 mcg/ml Assessment & Plan Acute on chronic hypoxic respiratory failure - obesity hypoventilation s/p tracheostomy Pulmonology consulted started pt on Pulmozyme recommend to continue Bipap Zosyn discontinued as Pseudomonas felt to be colonization -- remains stable, continue trach care CELLULITIS /OPEN WOUND ON RT LOWER LEG: pt to have large open wound with drainage underneath rt lower leg wound culture and gram stain -growing pseudomonas /staph /gram positive cocci / gram positive bacilli - ID on board continue Vancomycin /Zosyn IV wound care nurse following DEPRESSION Psych was consulted, denies of any depressive symptom Zoloft Increased to 50mg PO daily periodic monitoring of EKG for Qtc prolongation -stable Metabolic encephalopathy , Resolved due to hypercapnia /respiratory failure -CT head negative Urinary retention on chronic indwelling Fitch - Right renal mass seen on CT February; - Follows with Dr. Persaud as an outpatient Idiopathic cardiomyopathy/with CHF chronic diastolic dysfunction Ejection Fraction 45-50% no signs of overt failure cont Lasix to PO 40 mg BID Hx Atrial flutter with RVR and Sick sinus syndrome s/p dual chamber pacemaker - rate is controlled - Continue amiodarone and metoprolol INR 2.1 continue Coumadin 3mg PRESSURE ULCER : - Morbid obesity/bed bound -has multiple skin break down -pt has been refusing to be turned by nursing to provide skin care - wound care consulted- multiple wounds on buttock and leg area noted , dressing applied with Optifoam Hypothyroidism - Continue levothyroxine Chronic normocytic anemia (anemia of chronic disease) - stable - monitor CBC VTE Prophylaxis - on warfarin INR 2.1 GI Prophylaxis - Pantoprazole 40 mg Code - Full no cardioversion Disposition to be determined does not have Bed availability in LTAC is unable to take care of pt at home repeated admission with Pneumonia, lower ext wound infection will need placement Social service following for discharge planning Consultants: Pulmonology PT/OT Log Feeder Cardio Psych Wound Care Current Inpatient Medications: Current Inpatient Medications Medications (Trade) Dose Ordered Sig/Kelly Route Start Time Stop Time Status Last Admin Dose Admin Acetaminophen/ Empty Bag (Ofirmev IV/ Empty Iv Bag 100ml) 65 ml @ 260 mls/hr Q6H PRN IV 03/29/16 07:30 04/28/16 07:29 Heparin Sodium (Porcine) (Heparin Sq 5000 Unit/0.5ml) 5,000 unit Q8 SQ 03/30/16 16:00 04/29/16 15:59 04/15/16 21:19 5,000 UNIT Pantoprazole Sodium (Protonix Tab) 40 mg QAM PO 04/01/16 09:00 05/01/16 08:59 04/15/16 08:21 40 MG Atorvastatin Calcium (Lipitor Tab) 10 mg HS PO 03/31/16 21:00 04/30/16 20:59 04/15/16 21:16 10 MG Levothyroxine Sodium (Synthroid Tab) 100 mcg DAILYBB PO 04/01/16 06:00 05/01/16 05:59 04/15/16 05:46 100 MCG Multivitamins/ Minerals (Multivitamin W/ Minerals Tab) 1 tab DAILY PO 04/01/16 09:00 05/01/16 08:59 04/15/16 08:21 1 TAB Tamsulosin HCl (Flomax Cap) 0.4 mg HS PO 03/31/16 21:00 04/30/16 20:59 04/15/16 21:16 0.4 MG Amiodarone HCl (Cordarone Tab) 100 mg QAM PO 04/01/16 09:00 05/01/16 08:59 04/15/16 08:21 100 MG Metoprolol Succinate (Toprol Xl Tab) 25 mg QAM PO 04/01/16 09:00 05/01/16 08:59 04/15/16 08:21 25 MG Potassium Chloride (Klor-Con Pwd) 20 meq BID PO 04/01/16 20:00 05/01/16 20:59 04/15/16 19:18 20 MEQ Tramadol HCl (Ultram Tab) 50 mg Q6H PRN PO 04/03/16 02:15 05/03/16 02:14 04/11/16 12:36 50 MG Heparin Sodium (Porcine) (Heparin 10 Unit/ ml 5 ml Flush) 5 ml PRN PRN FLUSH 04/04/16 08:30 05/04/16 08:29 04/15/16 08:25 5 ML Ipratropium [place] (Atrovent Hfa Inhaler) 4 puffs Q6 INH 04/06/16 18:00 05/06/16 17:59 04/15/16 19:18 4 PUFFS Albuterol (Ventolin Hfa Inhaler) 4 puffs Q6 INH 04/06/16 18:00 05/06/16 17:59 04/15/16 19:18 4 PUFFS Docusate Sodium (coLACE CAP) 100 mg BID PO 04/06/16 20:00 05/06/16 19:59 04/15/16 19:18 100 MG Polyethylene (Miralax Powder Packet) 17 gm DAILY PO 04/06/16 15:15 05/06/16 15:14 04/06/16 16:17 17 GM Bisacodyl (Dulcolax Tab) 5 mg DAILY PRN PO 04/06/16 15:15 05/06/16 15:14 Furosemide (Lasix tab) 40 mg BID17 PO 04/08/16 17:00 05/08/16 16:59 04/15/16 15:53 40 MG Miconazole Nitrate (Desenex Powder) 1 appln PRN PRN EXT 04/08/16 15:15 05/08/16 15:14 Sertraline HCl (Zoloft Tab) 100 mg QAM PO 04/10/16 08:00 05/10/16 07:59 04/15/16 08:21 100 MG Vancomycin HCl (Consult) 1 ea UD PRN N/A 04/11/16 18:45 05/11/16 18:44 Piperacillin Sod/ Tazobactam Sod 1 ea 1 ea UD PRN N/A 04/12/16 21:30 05/12/16 21:29 Piperacillin Sod/ Tazobactam Sod/ Dextrose (Zosyn Iv/D5 100ml) 120 ml @ 30 mls/hr Q8H IV 04/12/16 22:00 04/22/16 21:59 04/15/16 21:15 30 MLS/HR Warfarin Sodium 3 mg 3 mg DAILY@16 PO 04/15/16 16:00 05/15/16 15:59 04/15/16 15:52 3 MG Vancomycin HCl/ Sodium Chloride (Vancomycin Inj/ Nss 500ml) 540 ml @ 200 mls/hr Q30H IV 04/15/16 21:00 04/20/16 23:59 Future Hold 04/15/16 21:14 200 MLS/HR
[2016-04-15 23:59] VITALS: PULSE 95; O2SAT 97
[2016-04-16] VITALS: O2SAT 95
[2016-04-16 00:23] VITALS: BP 148/82; PULSE 63; TEMP 36.6; O2SAT 95
[2016-04-16] MEDS: ALBUTEROL HFA 8 GM INHALER INH SCH ×4 (00:35→17:11)
[2016-04-16] MEDS: IPRATROPIUM BROMIDE HFA INHALER INH SCH ×4 (00:35→17:10)
[2016-04-16 06:20] LABS: INR 2.2 (0.9-1.1); PROTHROMBIN TIME (PATIENT) 24.5 SECONDS (9.0-12.0)
[2016-04-16] MEDS: LEVOTHYROXINE 100 MCG TAB PO SCH (06:26)
[2016-04-16 06:29] LABS: CREATININE 1.1 mg/dl (0.60-1.40)
[2016-04-16] MEDS: HEPARIN SOD 5000 UNIT/0.5 ML CARP SQ SCH ×3 (06:31→21:08)
[2016-04-16] MEDS: PIPERACILL/TAZOBAC IV 4.5 GM in DEXTROSE 5% 100ML IV SCH ×3 (06:32→21:09)
[2016-04-16] MEDS: POLYETHYLENE (MIRALAX) 17 GM PACK PO SCH (08:00)
[2016-04-16 08:19] VITALS: BP 118/74; PULSE 61; TEMP 36.7; O2SAT 92
[2016-04-16] MEDS: SERTRALINE HCL 100 MG TAB PO SCH (08:26)
[2016-04-16] MEDS: PANTOprazole SOD 40 MG TAB PO SCH (08:26)
[2016-04-16] MEDS: POTASSIUM CHLORIDE PWD 20 MEQ PACK PO SCH ×2 (08:26→21:07)
[2016-04-16] MEDS: CEROVITE ADV FORMULA TAB PO SCH (08:26)
[2016-04-16] MEDS: METOPROLOL SUCC 25MG EXT REL TAB PO SCH (08:26)
[2016-04-16] MEDS: AMIODARONE 200 MG TAB PO SCH (08:27)
[2016-04-16] MEDS: DOCUSATE SODIUM 100 MG CAP PO SCH (08:27)
[2016-04-16] MEDS: FUROSEMIDE 40 MG TAB PO SCH ×2 (08:27→17:11)
[2016-04-16 15:14] VITALS: BP 128/71; PULSE 103; TEMP 36.9; O2SAT 94
[2016-04-16] MEDS ORDERED: ALUMINUM/MAGNESIUM SUSP 30 ML UDC PO PRN (17:00)
[2016-04-16] MEDS ORDERED: ALUMINUM/MAGNESIUM SUSP 30 ML UDC ONE (17:05)
[2016-04-16] MEDS: WARFARIN SOD 3 MG TAB PO SCH (17:11)
[2016-04-16] MEDS ORDERED: ALUMINUM/MAGNESIUM SUSP 30 ML UDC PO ONE (17:15)
[2016-04-16] MEDS: ARGININE EXTRA NUTRITION DRINK 1 BOX PO SCH (20:00)
--- NOTE | 2016-04-16 20:02 | Progress Note ---
Medicine Progress Note Date & Time of Visit: Apr 16, 2016 at 19:59. Subjective states he had tummy ache today, some nausea felt constipated in AM, better in the evening no dyspnea, chest pain no other symptoms declines physical exam this evening Objective Last 8 Hrs Date Time Temp Pulse Resp B/P Pulse Ox O2 Delivery O2 Flow Rate FiO2 04/16/16 16:00 Trach Collar 04/16/16 15:14 36.9 103 18 128/71 94 Physical Exam: General- oriented x 3, not in distress, no accessory muscle ude Eyes- anicteric ENT- trach in place Neck- no JVD declined the rest of PE Pulse rate normal Neuro- alert, oriented x 3 Laboratory Results: Last 24 Hours Test 04/16/16 05:20 Prothrombin Time 24.5 SECONDS Prothromb Time International Ratio 2.2 Creatinine 1.10 mg/dl Est Creatinine Clear Calc Drug Dose 117.9 ml/min Estimated GFR () 84.7 Estimated GFR (Non- 73.1 Date/Time Source Procedure Growth Status 04/16/16 12:50 Rectum Swab VRE Surveillance Culture Pending Received Assessment & Plan Acute on chronic hypoxic respiratory failure - obesity hypoventilation s/p tracheostomy Pulmonology consulted started pt on Pulmozyme recommend to continue Bipap Zosyn discontinued as Pseudomonas felt to be colonization -- remains stable, continue trach care CELLULITIS /OPEN WOUND ON RT LOWER LEG: pt to have large open wound with drainage underneath rt lower leg wound culture and gram stain -growing pseudomonas /staph /gram positive cocci / gram positive bacilli - ID on board continue Vancomycin /Zosyn IV wound care nurse following DEPRESSION Psych was consulted, denies of any depressive symptom Zoloft Increased to 50mg PO daily periodic monitoring of EKG for Qtc prolongation -stable Metabolic encephalopathy , Resolved due to hypercapnia /respiratory failure -CT head negative Urinary retention on chronic indwelling Fitch - Right renal mass seen on CT February; - Follows with Dr. Persaud as an outpatient Idiopathic cardiomyopathy/with CHF chronic diastolic dysfunction Ejection Fraction 45-50% no signs of overt failure cont Lasix to PO 40 mg BID Hx Atrial flutter with RVR and Sick sinus syndrome s/p dual chamber pacemaker - rate is controlled - Continue amiodarone and metoprolol INR 2.2 continue Coumadin 3mg PRESSURE ULCER : - Morbid obesity/bed bound -has multiple skin break down -pt has been refusing to be turned by nursing to provide skin care - wound care consulted- multiple wounds on buttock and leg area noted , dressing applied with Optifoam Hypothyroidism - Continue levothyroxine Chronic normocytic anemia (anemia of chronic disease) - stable - monitor CBC VTE Prophylaxis - on warfarin INR 2.2 GI Prophylaxis - Pantoprazole 40 mg Code - Full no cardioversion Disposition to be determined does not have Bed availability in LTAC is unable to take care of pt at home repeated admission with Pneumonia, lower ext wound infection will need placement Social service following for discharge planning Consultants: Pulmonology PT/OT [employer] Cardio Psych Wound Care Current Inpatient Medications: Current Inpatient Medications Medications (Trade) Dose Ordered Sig/Kelly Route Start Time Stop Time Status Last Admin Dose Admin Acetaminophen/ Empty Bag (Ofirmev IV/ Empty Iv Bag 100ml) 65 ml @ 260 mls/hr Q6H PRN IV 03/29/16 07:30 04/28/16 07:29 Heparin Sodium (Porcine) (Heparin Sq 5000 Unit/0.5ml) 5,000 unit Q8 SQ 03/30/16 16:00 04/29/16 15:59 04/16/16 13:49 5,000 UNIT Pantoprazole Sodium (Protonix Tab) 40 mg QAM PO 04/01/16 09:00 05/01/16 08:59 04/16/16 08:26 40 MG Atorvastatin Calcium (Lipitor Tab) 10 mg HS PO 03/31/16 21:00 04/30/16 20:59 04/15/16 21:16 10 MG Levothyroxine Sodium (Synthroid Tab) 100 mcg DAILYBB PO 04/01/16 06:00 05/01/16 05:59 04/16/16 06:26 100 MCG Multivitamins/ Minerals (Multivitamin W/ Minerals Tab) 1 tab DAILY PO 04/01/16 09:00 05/01/16 08:59 04/16/16 08:26 1 TAB Tamsulosin HCl (Flomax Cap) 0.4 mg HS PO 03/31/16 21:00 04/30/16 20:59 04/15/16 21:16 0.4 MG Amiodarone HCl (Cordarone Tab) 100 mg QAM PO 04/01/16 09:00 05/01/16 08:59 04/16/16 08:27 100 MG Metoprolol Succinate (Toprol Xl Tab) 25 mg QAM PO 04/01/16 09:00 05/01/16 08:59 04/16/16 08:26 25 MG Potassium Chloride (Klor-Con Pwd) 20 meq BID PO 04/01/16 20:00 05/01/16 20:59 04/16/16 08:26 20 MEQ Tramadol HCl (Ultram Tab) 50 mg Q6H PRN PO 04/03/16 02:15 05/03/16 02:14 04/11/16 12:36 50 MG Heparin Sodium (Porcine) (Heparin 10 Unit/ ml 5 ml Flush) 5 ml PRN PRN FLUSH 04/04/16 08:30 05/04/16 08:29 04/16/16 06:12 5 ML Ipratropium [place] (Atrovent Hfa Inhaler) 4 puffs Q6 INH 04/06/16 18:00 05/06/16 17:59 04/16/16 17:10 4 PUFFS Albuterol (Ventolin Hfa Inhaler) 4 puffs Q6 INH 04/06/16 18:00 05/06/16 17:59 04/16/16 17:11 4 PUFFS Docusate Sodium (coLACE CAP) 100 mg BID PO 04/06/16 20:00 05/06/16 19:59 04/16/16 08:27 100 MG Polyethylene (Miralax Powder Packet) 17 gm DAILY PO 04/06/16 15:15 05/06/16 15:14 04/06/16 16:17 17 GM Bisacodyl (Dulcolax Tab) 5 mg DAILY PRN PO 04/06/16 15:15 05/06/16 15:14 Furosemide (Lasix tab) 40 mg BID17 PO 04/08/16 17:00 05/08/16 16:59 04/16/16 17:11 40 MG Miconazole Nitrate (Desenex Powder) 1 appln PRN PRN EXT 04/08/16 15:15 05/08/16 15:14 Sertraline HCl (Zoloft Tab) 100 mg QAM PO 04/10/16 08:00 05/10/16 07:59 04/16/16 08:26 100 MG Vancomycin HCl (Consult) 1 ea UD PRN N/A 04/11/16 18:45 05/11/16 18:44 Piperacillin Sod/ Tazobactam Sod 1 ea 1 ea UD PRN N/A 04/12/16 21:30 05/12/16 21:29 Piperacillin Sod/ Tazobactam Sod/ Dextrose (Zosyn Iv/D5 100ml) 120 ml @ 30 mls/hr Q8H IV 04/12/16 22:00 04/22/16 21:59 04/16/16 14:10 30 MLS/HR Warfarin Sodium 3 mg 3 mg DAILY@16 PO 04/15/16 16:00 05/15/16 15:59 04/16/16 17:11 3 MG Vancomycin HCl/ Sodium Chloride (Vancomycin Inj/ Nss 500ml) 540 ml @ 200 mls/hr Q30H IV 04/15/16 21:00 04/20/16 23:59 Future Hold 04/15/16 21:14 200 MLS/HR Enteral Nutritional Formula (Arginaid Extra) 1 box BID PO 04/16/16 20:00 05/16/16 19:59 Al Hydroxide/Mg Hydroxide (Maalox Susp) 30 ml Q6H PRN PO 04/16/16 17:00 05/16/16 16:59
[2016-04-16] MEDS: TAMSULOSIN HCL 0.4 MG CAP PO SCH (21:08)
[2016-04-16] MEDS: ATORVASTATIN 10 MG TAB PO SCH (21:08)
[2016-04-16 23:37] VITALS: BP 148/76; PULSE 79; TEMP 36.5; O2SAT 95
[2016-04-17] VITALS (8 sets, daily range): BP systolic 111–120; BP diastolic 67–69; PULSE 59–77; TEMP 36.5–36.9; O2SAT 94–99
[2016-04-17] MEDS: TRAMADOL HCL 50 MG TAB PO PRN ×2 (01:45→23:49)
[2016-04-17] MEDS: VANCOMYCIN INJ 2,000 MG in SODIUM CHLORIDE 0.9% 500ML 500 ML IV SCH (04:01)
[2016-04-17] MEDS: ALBUTEROL HFA 8 GM INHALER INH SCH ×5 (06:00→23:50)
[2016-04-17] MEDS: IPRATROPIUM BROMIDE HFA INHALER INH SCH ×5 (06:00→23:50)
[2016-04-17 06:11] LABS: INR 2.6 (0.9-1.1)
[2016-04-17] MEDS: PIPERACILL/TAZOBAC IV 4.5 GM in DEXTROSE 5% 100ML IV SCH ×3 (06:31→22:50)
[2016-04-17] MEDS: LEVOTHYROXINE 100 MCG TAB PO SCH (06:33)
[2016-04-17] MEDS: HEPARIN SOD 5000 UNIT/0.5 ML CARP SQ SCH ×3 (06:37→22:28)
[2016-04-17] MEDS: POLYETHYLENE (MIRALAX) 17 GM PACK PO SCH (08:00)
[2016-04-17] MEDS: DOCUSATE SODIUM/SENNA 50/8.6MG TAB PO SCH (08:17)
[2016-04-17] MEDS: SERTRALINE HCL 100 MG TAB PO SCH (08:17)
[2016-04-17] MEDS: CEROVITE ADV FORMULA TAB PO SCH (08:17)
[2016-04-17] MEDS: METOPROLOL SUCC 25MG EXT REL TAB PO SCH (08:17)
[2016-04-17] MEDS: AMIODARONE 200 MG TAB PO SCH (08:18)
[2016-04-17] MEDS: PANTOprazole SOD 40 MG TAB PO SCH (08:18)
[2016-04-17] MEDS: POTASSIUM CHLORIDE PWD 20 MEQ PACK PO SCH ×2 (08:18→20:17)
[2016-04-17] MEDS: ARGININE EXTRA NUTRITION DRINK 1 BOX PO SCH ×2 (08:19→20:23)
[2016-04-17] MEDS: FUROSEMIDE 40 MG TAB PO SCH ×2 (08:19→16:43)
[2016-04-17] MEDS ORDERED: NURSING VERBAL MED ORDER ONE (11:30)
[2016-04-17] MEDS: WARFARIN SOD 3 MG TAB PO SCH (16:42)
[2016-04-17] MEDS: MICONAZOLE NITRATE POWDER 43 GM EXT SCH (20:00)
[2016-04-17] MEDS: TAMSULOSIN HCL 0.4 MG CAP PO SCH (20:17)
[2016-04-17] MEDS: ATORVASTATIN 10 MG TAB PO SCH (20:17)
--- NOTE | 2016-04-17 21:30 | Progress Note ---
Medicine Progress Note Date & Time of Visit: Apr 17, 2016 at 21:26. Subjective states he feels better today no nausea (+) BMs denies pain no other symptoms Objective Last 8 Hrs Date Time Temp Pulse Resp B/P Pulse Ox O2 Delivery O2 Flow Rate FiO2 04/17/16 18:39 77 16 96 Trach Collar 40 04/17/16 16:00 94 Trach Collar 11.0 40 04/17/16 15:29 36.5 59 22 115/68 94 Trach Collar 11.0 Physical Exam: General- oriented x 3, not in distress, speaks in sentences with trach covered Eyes- anicteric ENT- trach in place Neck- supple, no JVD Lungs- clear to auscultation b/l Heart- regular rhythm; no murmur Abdomen- normal bowel sounds, soft, nontender Extremities- (+) bilateral leg edema, no erythema/warmth Neuro- alert, oriented x 3;no gross deficits Skin- warm & dry Laboratory Results: Last 24 Hours Test 04/17/16 05:13 Prothrombin Time 29.0 SECONDS Prothromb Time International Ratio 2.6 Assessment & Plan Acute on chronic hypoxic respiratory failure - obesity hypoventilation s/p tracheostomy Pulmonology consulted started pt on Pulmozyme recommend to continue Bipap Zosyn discontinued as Pseudomonas felt to be colonization -- remains stable, tolerating bipap at night, continue trach care CELLULITIS /OPEN WOUND ON RT LOWER LEG: pt to have large open wound with drainage underneath rt lower leg wound culture and gram stain -growing pseudomonas /staph /gram positive cocci / gram positive bacilli - ID on board afebrile continue Vancomycin /Zosyn IV wound care nurse following DEPRESSION Psych was consulted, denies of any depressive symptom Zoloft Increased to 50mg PO daily periodic monitoring of EKG for Qtc prolongation -stable Metabolic encephalopathy , Resolved due to hypercapnia /respiratory failure -CT head negative Urinary retention - Right renal mass seen on CT February; on chronic indwelling Fitch - Follows with Dr. Persaud as an outpatient Idiopathic cardiomyopathy/with CHF chronic diastolic dysfunction Ejection Fraction 45-50% no signs of overt failure cont Lasix to PO 40 mg BID Hx Atrial flutter with RVR and Sick sinus syndrome s/p dual chamber pacemaker - rate is controlled - Continue amiodarone and metoprolol INR 2.6 continue Coumadin 3mg PRESSURE ULCER : - Morbid obesity/bed bound -has multiple skin break down -pt has been refusing to be turned by nursing to provide skin care - wound care consulted multiple wounds on buttock and leg area noted , dressing applied with Optifoam Hypothyroidism - Continue levothyroxine Chronic normocytic anemia (anemia of chronic disease) - stable - monitor CBC VTE Prophylaxis - on warfarin GI Prophylaxis - Pantoprazole 40 mg Code - Full no cardioversion Disposition to be determined does not have Bed availability in LTAC is unable to take care of pt at home repeated admission with Pneumonia, lower ext wound infection will need placement Social service following for discharge planning Consultants: Pulmonology PT/OT [employer] Cardio Psych Wound Care Current Inpatient Medications: Current Inpatient Medications Medications (Trade) Dose Ordered Sig/Kelly Route Start Time Stop Time Status Last Admin Dose Admin Acetaminophen/ Empty Bag (Ofirmev IV/ Empty Iv Bag 100ml) 65 ml @ 260 mls/hr Q6H PRN IV 03/29/16 07:30 04/28/16 07:29 Heparin Sodium (Porcine) (Heparin Sq 5000 Unit/0.5ml) 5,000 unit Q8 SQ 03/30/16 16:00 04/29/16 15:59 04/17/16 14:07 5,000 UNIT Pantoprazole Sodium (Protonix Tab) 40 mg QAM PO 04/01/16 09:00 05/01/16 08:59 04/17/16 08:18 40 MG Atorvastatin Calcium (Lipitor Tab) 10 mg HS PO 03/31/16 21:00 04/30/16 20:59 04/17/16 20:17 10 MG Levothyroxine Sodium (Synthroid Tab) 100 mcg DAILYBB PO 04/01/16 06:00 05/01/16 05:59 04/17/16 06:33 100 MCG Multivitamins/ Minerals (Multivitamin W/ Minerals Tab) 1 tab DAILY PO 04/01/16 09:00 05/01/16 08:59 04/17/16 08:17 1 TAB Tamsulosin HCl (Flomax Cap) 0.4 mg HS PO 03/31/16 21:00 04/30/16 20:59 04/17/16 20:17 0.4 MG Amiodarone HCl (Cordarone Tab) 100 mg QAM PO 04/01/16 09:00 05/01/16 08:59 04/17/16 08:18 100 MG Metoprolol Succinate (Toprol Xl Tab) 25 mg QAM PO 04/01/16 09:00 05/01/16 08:59 04/17/16 08:17 25 MG Potassium Chloride (Klor-Con Pwd) 20 meq BID PO 04/01/16 20:00 05/01/16 20:59 04/17/16 20:17 20 MEQ Tramadol HCl (Ultram Tab) 50 mg Q6H PRN PO 04/03/16 02:15 05/03/16 02:14 04/17/16 01:45 50 MG Heparin Sodium (Porcine) (Heparin 10 Unit/ ml 5 ml Flush) 5 ml PRN PRN FLUSH 04/04/16 08:30 05/04/16 08:29 04/16/16 06:12 5 ML Ipratropium [place] (Atrovent Hfa Inhaler) 4 puffs Q6 INH 04/06/16 18:00 05/06/16 17:59 04/17/16 18:38 4 PUFFS Albuterol (Ventolin Hfa Inhaler) 4 puffs Q6 INH 04/06/16 18:00 05/06/16 17:59 04/17/16 18:38 4 PUFFS Polyethylene (Miralax Powder Packet) 17 gm DAILY PO 04/06/16 15:15 05/06/16 15:14 04/06/16 16:17 17 GM Bisacodyl (Dulcolax Tab) 5 mg DAILY PRN PO 04/06/16 15:15 05/06/16 15:14 Furosemide (Lasix tab) 40 mg BID17 PO 04/08/16 17:00 05/08/16 16:59 04/17/16 16:43 40 MG Sertraline HCl (Zoloft Tab) 100 mg QAM PO 04/10/16 08:00 05/10/16 07:59 04/17/16 08:17 100 MG Vancomycin HCl (Consult) 1 ea UD PRN N/A 04/11/16 18:45 05/11/16 18:44 Piperacillin Sod/ Tazobactam Sod 1 ea 1 ea UD PRN N/A 04/12/16 21:30 05/12/16 21:29 Piperacillin Sod/ Tazobactam Sod/ Dextrose (Zosyn Iv/D5 100ml) 120 ml @ 30 mls/hr Q8H IV 04/12/16 22:00 04/22/16 21:59 04/17/16 14:07 30 MLS/HR Warfarin Sodium 3 mg 3 mg DAILY@16 PO 04/15/16 16:00 05/15/16 15:59 04/17/16 16:42 3 MG Vancomycin HCl/ Sodium Chloride (Vancomycin Inj/ Nss 500ml) 540 ml @ 200 mls/hr Q30H IV 04/15/16 21:00 04/20/16 23:59 Future Hold 04/17/16 04:01 200 MLS/HR Enteral Nutritional Formula (Arginaid Extra) 1 box BID PO 04/16/16 20:00 05/16/16 19:59 04/17/16 20:23 1 BOX Al Hydroxide/Mg Hydroxide (Maalox Susp) 30 ml Q6H PRN PO 04/16/16 17:00 05/16/16 16:59 04/16/16 21:10 30 ML Senna/Docusate Sodium (Senokot S Tab) 1 tab QAM PO 04/17/16 08:00 05/17/16 07:59 04/17/16 08:17 1 TAB Miconazole Nitrate (Desenex Powder) 1 appln BID EXT 04/17/16 20:00 05/17/16 19:59
[2016-04-18] VITALS (7 sets, daily range): BP systolic 102–132; BP diastolic 57–68; PULSE 59–80; TEMP 36.7–36.9; O2SAT 94–96
[2016-04-18] MEDS: PIPERACILL/TAZOBAC IV 4.5 GM in DEXTROSE 5% 100ML IV SCH ×3 (05:35→21:27)
[2016-04-18] MEDS: ALBUTEROL HFA 8 GM INHALER INH SCH ×4 (05:35→23:40)
[2016-04-18] MEDS: IPRATROPIUM BROMIDE HFA INHALER INH SCH ×4 (05:35→23:40)
[2016-04-18] MEDS: LEVOTHYROXINE 100 MCG TAB PO SCH (05:37)
[2016-04-18] MEDS: HEPARIN SOD 5000 UNIT/0.5 ML CARP SQ SCH ×2 (05:43→13:34)
[2016-04-18 06:53] LABS: INR 2.3 (0.9-1.1); PROTHROMBIN TIME (PATIENT) 25.9 SECONDS (9.0-12.0)
[2016-04-18 07:16] LABS: CREATININE 1.2 mg/dl (0.60-1.40)
[2016-04-18] MEDS: DOCUSATE SODIUM/SENNA 50/8.6MG TAB PO SCH (08:00)
[2016-04-18] MEDS: POLYETHYLENE (MIRALAX) 17 GM PACK PO SCH (08:00)
[2016-04-18] MEDS: ARGININE EXTRA NUTRITION DRINK 1 BOX PO SCH ×2 (08:00→21:25)
[2016-04-18] MEDS: SERTRALINE HCL 100 MG TAB PO SCH (08:16)
[2016-04-18] MEDS: METOPROLOL SUCC 25MG EXT REL TAB PO SCH (08:17)
[2016-04-18] MEDS: PANTOprazole SOD 40 MG TAB PO SCH (08:17)
[2016-04-18] MEDS: POTASSIUM CHLORIDE PWD 20 MEQ PACK PO SCH ×2 (08:17→21:20)
[2016-04-18] MEDS: AMIODARONE 200 MG TAB PO SCH (08:17)
[2016-04-18] MEDS: MICONAZOLE NITRATE POWDER 43 GM EXT SCH ×2 (08:18→19:30)
[2016-04-18] MEDS: CEROVITE ADV FORMULA TAB PO SCH (08:18)
[2016-04-18] MEDS: FUROSEMIDE 40 MG TAB PO SCH ×2 (08:18→16:24)
[2016-04-18] MEDS ORDERED: VANCOMYCIN TROUGH SCH (08:30)
--- NOTE | 2016-04-18 09:43 | Pharmacy Progress Note ---
Pharmacy Antibiotic Prog Note Date of Service: Apr 18, 2016. Subjective: The patient is currently receiving vancomycin 2 gm iv q 30 hr and zosyn 4.5 g iv q 8 hrs for wound infection The patient is currently on day # 8 of IV therapy. Objective: Height (Feet): 5 Height (Inches): 10.00 Weight (Kilograms): 178.600 Levels: Item Value Date Time Vancomycin Level Trough 19.5 mcg/ml 04/18/16 0820 Lab Results (24hrs): Laboratory Tests Test 04/18/16 05:53 Creatinine 1.20 mg/dl Assessment & Plan: Patient receiving vancomycin and zosyn for wound infection. Has hx of MDRO in past. ID is following the patient. Vancomycin: * Trough level this am came back therapeutic at ~19.5 mcg/ml (goal 15-20 for wound/abscess infection); estimated level actual slightly lower due to late administration of previous dose * Will continue with current regimen and resume dose for 9 am * Scr remains stable, today at 1.20 mg/dL (CrCl >100 ml/min) * Per ID note, patient likely to require 7-10 days of therapy; no oral options available for infection Zosyn: * 4.5 gm iv q 8 hrs - appropriate for CrCl >20 ml/min (no changes necessary; continue same dose) Pharmacy will continue to follow and will adjust dose/frequency as necessary. Thank you
[2016-04-18] MEDS: VANCOMYCIN INJ 2,000 MG in SODIUM CHLORIDE 0.9% 500ML 500 ML IV SCH (10:20)
[2016-04-18] MEDS: WARFARIN SOD 3 MG TAB PO SCH (16:24)
--- NOTE | 2016-04-18 20:52 | Progress Note ---
Medicine Progress Note Date & Time of Visit: Apr 18, 2016 at 20:47. Subjective noted to have some bleeding on the wound at the posterior right leg comfortable, watching tv breathing is good denies pain overall feels ok no other symptoms Objective Last 8 Hrs Date Time Temp Pulse Resp B/P Pulse Ox O2 Delivery O2 Flow Rate FiO2 04/18/16 16:00 Trach Collar 04/18/16 15:02 36.9 60 20 118/58 95 Physical Exam: General- oriented x 3, not in distress, speaks in sentences with trach covered ENT- trach in place Neck- no JVD Lungs- clear to auscultation b/l, no rales/wheeze Heart- normal rate, regular rhythm; no murmur Abdomen- normal bowel sounds, soft, nontender Extremities- (+) bilateral leg edema, no erythema/warmth Neuro- alert, oriented x 3;no gross deficits Skin- warm & dry Laboratory Results: Last 24 Hours Test 04/18/16 05:53 04/18/16 08:20 04/18/16 20:45 Prothrombin Time 25.9 SECONDS Prothromb Time International Ratio 2.3 Creatinine 1.20 mg/dl Est Creatinine Clear Calc Drug Dose 108.0 ml/min Estimated GFR () 76.3 Estimated GFR (Non- 65.8 Vancomycin Level Trough 19.5 mcg/ml Assessment & Plan Acute on chronic hypoxic respiratory failure - obesity hypoventilation s/p tracheostomy Pulmonology consulted started pt on Pulmozyme recommend to continue Bipap Zosyn discontinued as Pseudomonas felt to be colonization -- no issues, stable overall tolerating bipap at night, continue trach care CELLULITIS /OPEN WOUND ON RT LOWER LEG: pt to have large open wound with drainage underneath rt lower leg wound culture and gram stain -growing pseudomonas /staph /gram positive cocci / gram positive bacilli - ID on board afebrile continue Vancomycin /Zosyn IV wound care nurse following DEPRESSION Psych was consulted, denies of any depressive symptom Zoloft Increased to 50mg PO daily periodic monitoring of EKG for Qtc prolongation -stable Metabolic encephalopathy , Resolved due to hypercapnia /respiratory failure -CT head negative Urinary retention - Right renal mass seen on CT February; on chronic indwelling Fitch - Follows with Dr. Persaud as an outpatient Idiopathic cardiomyopathy/with CHF chronic diastolic dysfunction Ejection Fraction 45-50% no signs of overt failure cont Lasix to PO 40 mg BID Hx Atrial flutter with RVR and Sick sinus syndrome s/p dual chamber pacemaker - rate is controlled - Continue amiodarone and metoprolol INR 2.3 continue Coumadin 3mg PRESSURE ULCER : - Morbid obesity/bed bound -has multiple skin break down -pt has been refusing to be turned by nursing to provide skin care - wound care consulted multiple wounds on buttock and leg area noted , dressing applied with Optifoam Hypothyroidism - Continue levothyroxine Chronic normocytic anemia (anemia of chronic disease) - stable - monitor CBC VTE Prophylaxis - on warfarin GI Prophylaxis - Pantoprazole 40 mg Code - Full no cardioversion Disposition to be determined does not have Bed availability in LTAC is unable to take care of pt at home repeated admission with Pneumonia, lower ext wound infection will need placement Social service following for discharge planning Consultants: Pulmonology PT/OT [employer] Cardio Psych Wound Care Current Inpatient Medications: Current Inpatient Medications Medications (Trade) Dose Ordered Sig/Kelly Route Start Time Stop Time Status Last Admin Dose Admin Acetaminophen/ Empty Bag (Ofirmev IV/ Empty Iv Bag 100ml) 65 ml @ 260 mls/hr Q6H PRN IV 03/29/16 07:30 04/28/16 07:29 Pantoprazole Sodium (Protonix Tab) 40 mg QAM PO 04/01/16 09:00 05/01/16 08:59 04/18/16 08:17 40 MG Atorvastatin Calcium (Lipitor Tab) 10 mg HS PO 03/31/16 21:00 04/30/16 20:59 04/17/16 20:17 10 MG Levothyroxine Sodium (Synthroid Tab) 100 mcg DAILYBB PO 04/01/16 06:00 05/01/16 05:59 04/18/16 05:37 100 MCG Multivitamins/ Minerals (Multivitamin W/ Minerals Tab) 1 tab DAILY PO 04/01/16 09:00 05/01/16 08:59 04/18/16 08:18 1 TAB Tamsulosin HCl (Flomax Cap) 0.4 mg HS PO 03/31/16 21:00 04/30/16 20:59 04/17/16 20:17 0.4 MG Amiodarone HCl (Cordarone Tab) 100 mg QAM PO 04/01/16 09:00 05/01/16 08:59 04/18/16 08:17 100 MG Metoprolol Succinate (Toprol Xl Tab) 25 mg QAM PO 04/01/16 09:00 05/01/16 08:59 04/18/16 08:17 25 MG Potassium Chloride (Klor-Con Pwd) 20 meq BID PO 04/01/16 20:00 05/01/16 20:59 04/18/16 08:17 20 MEQ Tramadol HCl (Ultram Tab) 50 mg Q6H PRN PO 04/03/16 02:15 05/03/16 02:14 04/17/16 23:49 50 MG Heparin Sodium (Porcine) (Heparin 10 Unit/ ml 5 ml Flush) 5 ml PRN PRN FLUSH 04/04/16 08:30 05/04/16 08:29 04/17/16 22:46 5 ML Ipratropium [place] (Atrovent Hfa Inhaler) 4 puffs Q6 INH 04/06/16 18:00 05/06/16 17:59 04/18/16 13:28 4 PUFFS Albuterol (Ventolin Hfa Inhaler) 4 puffs Q6 INH 04/06/16 18:00 05/06/16 17:59 04/18/16 13:28 4 PUFFS Polyethylene (Miralax Powder Packet) 17 gm DAILY PO 04/06/16 15:15 05/06/16 15:14 04/06/16 16:17 17 GM Bisacodyl (Dulcolax Tab) 5 mg DAILY PRN PO 04/06/16 15:15 05/06/16 15:14 Furosemide (Lasix tab) 40 mg BID17 PO 04/08/16 17:00 05/08/16 16:59 04/18/16 16:24 40 MG Sertraline HCl (Zoloft Tab) 100 mg QAM PO 04/10/16 08:00 05/10/16 07:59 04/18/16 08:16 100 MG Vancomycin HCl (Consult) 1 ea UD PRN N/A 04/11/16 18:45 05/11/16 18:44 Piperacillin Sod/ Tazobactam Sod 1 ea 1 ea UD PRN N/A 04/12/16 21:30 05/12/16 21:29 Piperacillin Sod/ Tazobactam Sod/ Dextrose (Zosyn Iv/D5 100ml) 120 ml @ 30 mls/hr Q8H IV 04/12/16 22:00 04/22/16 21:59 04/18/16 13:28 30 MLS/HR Warfarin Sodium 3 mg 3 mg DAILY@16 PO 04/15/16 16:00 05/15/16 15:59 04/18/16 16:24 3 MG Vancomycin HCl/ Sodium Chloride (Vancomycin Inj/ Nss 500ml) 540 ml @ 200 mls/hr Q30H IV 04/15/16 21:00 04/20/16 23:59 Future hold 04/18/16 10:20 200 MLS/HR Enteral Nutritional Formula (Arginaid Extra) 1 box BID PO 04/16/16 20:00 05/16/16 19:59 04/17/16 20:23 1 BOX Al Hydroxide/Mg Hydroxide (Maalox Susp) 30 ml Q6H PRN PO 04/16/16 17:00 05/16/16 16:59 04/16/16 21:10 30 ML Senna/Docusate Sodium (Senokot S Tab) 1 tab QAM PO 04/17/16 08:00 05/17/16 07:59 04/17/16 08:17 1 TAB Miconazole Nitrate (Desenex Powder) 1 appln BID EXT 04/17/16 20:00 05/17/16 19:59 04/18/16 08:18 1 APPLN
[2016-04-18] MEDS: TRAMADOL HCL 50 MG TAB PO PRN (21:16)
[2016-04-18] MEDS: ATORVASTATIN 10 MG TAB PO SCH (21:20)
[2016-04-18] MEDS: TAMSULOSIN HCL 0.4 MG CAP PO SCH (21:20)
[2016-04-18 21:33] LABS: BASO % 0.7 %; BASO ABS # 0.04 K/uL (0-0.2); EOS % 6.6 %; HEMATOCRIT 28.4 % (42-52); IG% 0.4 %; LYMPH % 24.5 %; LYMPH ABS # 1.38 K/uL (1.2-3.4); MEAN CELL VOLUME 86.1 fL (80-100); MEAN CORPUSCULAR HEMOGLOBIN 26.7 pg (25-34); MEAN PLATELET VOLUME 8.4 fL (7.4-10.4); MONO % 10.8 %; PLATELET COUNT 367 K/uL (130-400); WHITE BLOOD COUNT 5.64 K/uL (4.8-10.8)
[2016-04-18 22:13] LABS: COMPLETE YES; OVALOCYTES 1+
[2016-04-19] VITALS (7 sets, daily range): BP systolic 115–142; BP diastolic 58–70; PULSE 55–64; TEMP 36.6–36.8; O2SAT 94–99
[2016-04-19] MEDS: PIPERACILL/TAZOBAC IV 4.5 GM in DEXTROSE 5% 100ML IV SCH ×3 (05:20→22:00)
[2016-04-19] MEDS: LEVOTHYROXINE 100 MCG TAB PO SCH (05:28)
[2016-04-19] MEDS: TRAMADOL HCL 50 MG TAB PO PRN ×2 (05:29→15:57)
[2016-04-19] MEDS: IPRATROPIUM BROMIDE HFA INHALER INH SCH ×4 (06:16→23:36)
[2016-04-19] MEDS: ALBUTEROL HFA 8 GM INHALER INH SCH ×4 (06:16→23:37)
[2016-04-19 06:40] LABS: INR 2.2 (0.9-1.1); PROTHROMBIN TIME (PATIENT) 24.2 SECONDS (9.0-12.0)
[2016-04-19 06:54] LABS: CALCIUM 8.7 mg/dl (8.5-10.1); CREATININE 1.1 mg/dl (0.60-1.40); POTASSIUM 3.3 mmol/L (3.5-5.1)
[2016-04-19] MEDS: POLYETHYLENE (MIRALAX) 17 GM PACK PO SCH (08:00)
[2016-04-19] MEDS: METOPROLOL SUCC 25MG EXT REL TAB PO SCH (08:00)
[2016-04-19] MEDS: DOCUSATE SODIUM/SENNA 50/8.6MG TAB PO SCH (08:00)
[2016-04-19] MEDS: POTASSIUM CHLORIDE PWD 20 MEQ PACK PO SCH ×3 (08:00→21:06)
[2016-04-19] MEDS: ARGININE EXTRA NUTRITION DRINK 1 BOX PO SCH ×2 (08:48→21:08)
[2016-04-19] MEDS: MICONAZOLE NITRATE POWDER 43 GM EXT SCH ×2 (08:48→21:19)
[2016-04-19] MEDS: AMIODARONE 200 MG TAB PO SCH (08:49)
[2016-04-19] MEDS: CEROVITE ADV FORMULA TAB PO SCH (08:49)
[2016-04-19] MEDS: PANTOprazole SOD 40 MG TAB PO SCH (08:50)
[2016-04-19] MEDS: SERTRALINE HCL 100 MG TAB PO SCH (08:50)
[2016-04-19] MEDS ORDERED: POTASSIUM CHLORIDE 20 MEQ TABCR PO ONE ×2 (09:15→19:00)
[2016-04-19 09:36] LABS: BASO % 0.6 %; BASO ABS # 0.04 K/uL (0-0.2); COMPLETE YES; EOS % 7.4 %; HEMATOCRIT 30.3 % (42-52); IG% 0.5 %; LYMPH % 25.2 %; LYMPH ABS # 1.66 K/uL (1.2-3.4); MEAN CELL VOLUME 86.8 fL (80-100); MEAN CORPUSCULAR HEMOGLOBIN 26.9 pg (25-34); MEAN PLATELET VOLUME 9.3 fL (7.4-10.4); MONO % 10.2 %; NEUT % 56.1 %; PLATELET COUNT 411 K/uL (130-400); RED BLOOD COUNT 3.49 M/uL (4.7-6.1); WHITE BLOOD COUNT 6.58 K/uL (4.8-10.8)
[2016-04-19] MEDS: FUROSEMIDE 40 MG TAB PO SCH ×2 (09:59→15:58)
[2016-04-19] MEDS ORDERED: VANCOMYCIN TROUGH ONE (14:30)
[2016-04-19] MEDS: WARFARIN SOD 3 MG TAB PO SCH (15:57)
[2016-04-19] MEDS: VANCOMYCIN INJ 2,000 MG in SODIUM CHLORIDE 0.9% 500ML 500 ML IV SCH (16:38)
--- NOTE | 2016-04-19 18:59 | Progress Note ---
Medicine Progress Note Date & Time of Visit: Apr 19, 2016 at 18:48. Subjective comfortable, watching tv reports left knee pain after wound care today denies shortness of breath, chest pain no bleeding on the wound sites reported denies other symptoms Objective Last 8 Hrs Date Time Temp Pulse Resp B/P Pulse Ox O2 Delivery O2 Flow Rate FiO2 04/19/16 14:46 36.6 60 20 115/58 97 Physical Exam: General- oriented x 3, not in distress, speaks in sentences with trach covered ENT- trach in place Neck- no JVD Lungs- clear breath sounds b/l, no rales/wheeze Heart- normal rate, regular rhythm; no murmur Abdomen- normal bowel sounds, soft, nontender Extremities- (+) bilateral leg edema, no erythema/warmth Neuro- alert, oriented x 3;no gross deficits Skin- warm & dry Laboratory Results: Last 24 Hours Test 04/18/16 21:05 04/19/16 05:03 04/19/16 05:16 04/19/16 14:28 White Blood Count 5.64 K/uL 6.58 K/uL Red Blood Count 3.30 M/uL 3.49 M/uL Hemoglobin 8.8 g/dL 9.4 g/dL Hematocrit 28.4 % 30.3 % Mean Corpuscular Volume 86.1 fL 86.8 fL Mean Corpuscular Hemoglobin 26.7 pg 26.9 pg Mean Corpuscular Hemoglobin Concent 31.0 g/dl 31.0 g/dl Platelet Count 367 K/uL 411 K/uL Mean Platelet Volume 8.4 fL 9.3 fL Neutrophils (%) (Auto) 57.0 % 56.1 % Lymphocytes (%) (Auto) 24.5 % 25.2 % Monocytes (%) (Auto) 10.8 % 10.2 % Eosinophils (%) (Auto) 6.6 % 7.4 % Basophils (%) (Auto) 0.7 % 0.6 % Neutrophils # (Auto) 3.22 K/uL 3.69 K/uL Lymphocytes # (Auto) 1.38 K/uL 1.66 K/uL Monocytes # (Auto) 0.61 K/uL 0.67 K/uL Eosinophils # (Auto) 0.37 K/uL 0.49 K/uL Basophils # (Auto) 0.04 K/uL 0.04 K/uL RDW Standard Deviation 54.5 fL 54.4 fL RDW Coefficient of Variation 17.2 % 17.1 % Immature Granulocyte % (Auto) 0.4 % 0.5 % Immature Granulocyte # (Auto) 0.02 K/uL 0.03 K/uL Ovalocytes 1+ Prothrombin Time 24.2 SECONDS Prothromb Time International Ratio 2.2 Sodium Level 140 mmol/L Potassium Level 3.3 mmol/L Chloride Level 99 mmol/L Carbon Dioxide Level 33 mmol/L Anion Gap 8.0 mmol/L Blood Urea Nitrogen 15 mg/dl Creatinine 1.10 mg/dl Est Creatinine Clear Calc Drug Dose 117.9 ml/min Estimated GFR () 84.7 Estimated GFR (Non- 73.1 BUN/Creatinine Ratio 14.0 Random Glucose 92 mg/dl Calcium Level 8.7 mg/dl Vancomycin Level Trough 18.1 mcg/ml Assessment & Plan Acute on chronic hypoxic respiratory failure - obesity hypoventilation s/p tracheostomy Pulmonology consulted started pt on Pulmozyme recommend to continue Bipap Zosyn discontinued as Pseudomonas felt to be colonization -- remaining stable tolerating bipap at night, continue trach care CELLULITIS /OPEN WOUND ON RT LOWER LEG/LEFT POSTERIOR THIGH REGION/BUTTOCKS wound culture and gram stain -growing pseudomonas /staph /gram positive cocci / gram positive bacilli - ID on board afebrile will be on 10th day of Vancomycin /Zosyn IV tomorrow will discuss with ID re: duration of antibiotics DEPRESSION Psych was consulted, denies of any depressive symptom Zoloft Increased to 50mg PO daily periodic monitoring of EKG for Qtc prolongation -stable Metabolic encephalopathy , Resolved due to hypercapnia /respiratory failure -CT head negative Urinary retention - Right renal mass seen on CT February; on chronic indwelling Fitch - Follows with Dr. ePrsaud as an outpatient Idiopathic cardiomyopathy/with CHF chronic diastolic dysfunction Ejection Fraction 45-50% no signs of overt failure cont Lasix to PO 40 mg BID Hx Atrial flutter with RVR and Sick sinus syndrome s/p dual chamber pacemaker - rate is controlled - Continue amiodarone and metoprolol INR 2.2 continue Coumadin 3mg PRESSURE ULCER : - Morbid obesity/bed bound -has multiple skin break down -pt has been refusing to be turned by nursing to provide skin care - wound care consulted multiple wounds on buttock and leg area noted , dressing applied with Optifoam Hypothyroidism - Continue levothyroxine Chronic normocytic anemia (anemia of chronic disease) - stable - monitor CBC VTE Prophylaxis - on warfarin GI Prophylaxis - Pantoprazole 40 mg Code - Full no cardioversion Disposition to be determined does not have Bed availability in LTAC is unable to take care of pt at home repeated admission with Pneumonia, lower ext wound infection will need placement Social service following for discharge planning Consultants: Pulmonology PT/OT [facility] Cardio Psych Wound Care Current Inpatient Medications: Current Inpatient Medications Medications (Trade) Dose Ordered Sig/Kelly Route Start Time Stop Time Status Last Admin Dose Admin Acetaminophen/ Empty Bag (Ofirmev IV/ Empty Iv Bag 100ml) 65 ml @ 260 mls/hr Q6H PRN IV 03/29/16 07:30 04/28/16 07:29 Pantoprazole Sodium (Protonix Tab) 40 mg QAM PO 04/01/16 09:00 05/01/16 08:59 04/19/16 08:50 40 MG Atorvastatin Calcium (Lipitor Tab) 10 mg HS PO 03/31/16 21:00 04/30/16 20:59 04/18/16 21:20 10 MG Levothyroxine Sodium (Synthroid Tab) 100 mcg DAILYBB PO 04/01/16 06:00 05/01/16 05:59 04/19/16 05:28 100 MCG Multivitamins/ Minerals (Multivitamin W/ Minerals Tab) 1 tab DAILY PO 04/01/16 09:00 05/01/16 08:59 04/19/16 08:49 1 TAB Tamsulosin HCl (Flomax Cap) 0.4 mg HS PO 03/31/16 21:00 04/30/16 20:59 04/18/16 21:20 0.4 MG Amiodarone HCl (Cordarone Tab) 100 mg QAM PO 04/01/16 09:00 05/01/16 08:59 04/19/16 08:49 100 MG Metoprolol Succinate (Toprol Xl Tab) 25 mg QAM PO 04/01/16 09:00 05/01/16 08:59 04/18/16 08:17 25 MG Potassium Chloride (Klor-Con Pwd) 20 meq BID PO 04/01/16 20:00 05/01/16 20:59 04/18/16 21:20 20 MEQ Tramadol HCl (Ultram Tab) 50 mg Q6H PRN PO 04/03/16 02:15 05/03/16 02:14 04/19/16 15:57 50 MG Heparin Sodium (Porcine) (Heparin 10 Unit/ ml 5 ml Flush) 5 ml PRN PRN FLUSH 04/04/16 08:30 05/04/16 08:29 04/19/16 10:30 5 ML Ipratropium [place] (Atrovent Hfa Inhaler) 4 puffs Q6 INH 04/06/16 18:00 05/06/16 17:59 04/19/16 18:16 4 PUFFS Albuterol (Ventolin Hfa Inhaler) 4 puffs Q6 INH 04/06/16 18:00 05/06/16 17:59 04/19/16 18:16 4 PUFFS Polyethylene (Miralax Powder Packet) 17 gm DAILY PO 04/06/16 15:15 05/06/16 15:14 04/06/16 16:17 17 GM Bisacodyl (Dulcolax Tab) 5 mg DAILY PRN PO 04/06/16 15:15 05/06/16 15:14 Furosemide (Lasix tab) 40 mg BID17 PO 04/08/16 17:00 05/08/16 16:59 04/19/16 15:58 40 MG Sertraline HCl (Zoloft Tab) 100 mg QAM PO 04/10/16 08:00 05/10/16 07:59 04/19/16 08:50 100 MG Vancomycin HCl (Consult) 1 ea UD PRN N/A 04/11/16 18:45 05/11/16 18:44 Piperacillin Sod/ Tazobactam Sod 1 ea 1 ea UD PRN N/A 04/12/16 21:30 05/12/16 21:29 Piperacillin Sod/ Tazobactam Sod/ Dextrose (Zosyn Iv/D5 100ml) 120 ml @ 30 mls/hr Q8H IV 04/12/16 22:00 04/22/16 21:59 04/19/16 14:16 30 MLS/HR Warfarin Sodium 3 mg 3 mg DAILY@16 PO 04/15/16 16:00 05/15/16 15:59 04/19/16 15:57 3 MG Vancomycin HCl/ Sodium Chloride (Vancomycin Inj/ Nss 500ml) 540 ml @ 200 mls/hr Q30H IV 04/15/16 21:00 04/20/16 23:59 Future hold 04/19/16 16:38 200 MLS/HR Enteral Nutritional Formula (Arginaid Extra) 1 box BID PO 04/16/16 20:00 05/16/16 19:59 04/19/16 08:48 1 BOX Al Hydroxide/Mg Hydroxide (Maalox Susp) 30 ml Q6H PRN PO 04/16/16 17:00 05/16/16 16:59 04/16/16 21:10 30 ML Senna/Docusate Sodium (Senokot S Tab) 1 tab QAM PO 04/17/16 08:00 05/17/16 07:59 04/17/16 08:17 1 TAB Miconazole Nitrate (Desenex Powder) 1 appln BID EXT 04/17/16 20:00 05/17/16 19:59 04/19/16 08:48 1 APPLN Potassium Chloride (Klor-Con Tab) 40 meq ONE PO 04/19/16 18:45 05/19/16 18:44 UNV
[2016-04-19] MEDS ORDERED: LIDODERM (LIDOCAINE) PATCH 5% TD ONE (19:00)
--- NOTE | 2016-04-19 19:20 | Infectious Disease Progress Nt ---
Progress Note Date of Service Apr 19, 2016. Subjective Pt evaluation today including: conversation w/ patient, physical exam, chart review, lab review, review of studies, conversation w/ treasury consultant, review of inpatient medication list Some occasional shortness of breath, otherwise offers no new complaints. Hemodynamically stable overnight, no fever. All Other Systems: Reviewed and Negative Medications Current Inpatient Medications Medications (Trade) Dose Ordered Sig/Kelly Route Start Time Stop Time Status Last Admin Dose Admin Acetaminophen/ Empty Bag (Ofirmev IV/ Empty Iv Bag 100ml) 65 ml @ 260 mls/hr Q6H PRN IV 03/29/16 07:30 04/28/16 07:29 Pantoprazole Sodium (Protonix Tab) 40 mg QAM PO 04/01/16 09:00 05/01/16 08:59 04/19/16 08:50 40 MG Atorvastatin Calcium (Lipitor Tab) 10 mg HS PO 03/31/16 21:00 04/30/16 20:59 04/18/16 21:20 10 MG Levothyroxine Sodium (Synthroid Tab) 100 mcg DAILYBB PO 04/01/16 06:00 05/01/16 05:59 04/19/16 05:28 100 MCG Multivitamins/ Minerals (Multivitamin W/ Minerals Tab) 1 tab DAILY PO 04/01/16 09:00 05/01/16 08:59 04/19/16 08:49 1 TAB Tamsulosin HCl (Flomax Cap) 0.4 mg HS PO 03/31/16 21:00 04/30/16 20:59 04/18/16 21:20 0.4 MG Amiodarone HCl (Cordarone Tab) 100 mg QAM PO 04/01/16 09:00 05/01/16 08:59 04/19/16 08:49 100 MG Metoprolol Succinate (Toprol Xl Tab) 25 mg QAM PO 04/01/16 09:00 05/01/16 08:59 04/18/16 08:17 25 MG Potassium Chloride (Klor-Con Pwd) 20 meq BID PO 04/01/16 20:00 05/01/16 20:59 04/18/16 21:20 20 MEQ Tramadol HCl (Ultram Tab) 50 mg Q6H PRN PO 04/03/16 02:15 05/03/16 02:14 04/19/16 15:57 50 MG Heparin Sodium (Porcine) (Heparin 10 Unit/ ml 5 ml Flush) 5 ml PRN PRN FLUSH 04/04/16 08:30 05/04/16 08:29 04/19/16 10:30 5 ML Ipratropium [place] (Atrovent Hfa Inhaler) 4 puffs Q6 INH 04/06/16 18:00 05/06/16 17:59 04/19/16 18:16 4 PUFFS Albuterol (Ventolin Hfa Inhaler) 4 puffs Q6 INH 04/06/16 18:00 05/06/16 17:59 04/19/16 18:16 4 PUFFS Polyethylene (Miralax Powder Packet) 17 gm DAILY PO 04/06/16 15:15 05/06/16 15:14 04/06/16 16:17 17 GM Bisacodyl (Dulcolax Tab) 5 mg DAILY PRN PO 04/06/16 15:15 05/06/16 15:14 Furosemide (Lasix tab) 40 mg BID17 PO 04/08/16 17:00 05/08/16 16:59 04/19/16 15:58 40 MG Sertraline HCl (Zoloft Tab) 100 mg QAM PO 04/10/16 08:00 05/10/16 07:59 04/19/16 08:50 100 MG Vancomycin HCl (Consult) 1 ea UD PRN N/A 04/11/16 18:45 05/11/16 18:44 Piperacillin Sod/ Tazobactam Sod 1 ea 1 ea UD PRN N/A 04/12/16 21:30 05/12/16 21:29 Piperacillin Sod/ Tazobactam Sod/ Dextrose (Zosyn Iv/D5 100ml) 120 ml @ 30 mls/hr Q8H IV 04/12/16 22:00 04/22/16 21:59 04/19/16 14:16 30 MLS/HR Warfarin Sodium 3 mg 3 mg DAILY@16 PO 04/15/16 16:00 05/15/16 15:59 04/19/16 15:57 3 MG Vancomycin HCl/ Sodium Chloride (Vancomycin Inj/ Nss 500ml) 540 ml @ 200 mls/hr Q30H IV 04/15/16 21:00 04/20/16 23:59 Future hold 04/19/16 16:38 200 MLS/HR Enteral Nutritional Formula (Arginaid Extra) 1 box BID PO 04/16/16 20:00 05/16/16 19:59 04/19/16 08:48 1 BOX Al Hydroxide/Mg Hydroxide (Maalox Susp) 30 ml Q6H PRN PO 04/16/16 17:00 05/16/16 16:59 04/16/16 21:10 30 ML Senna/Docusate Sodium (Senokot S Tab) 1 tab QAM PO 04/17/16 08:00 05/17/16 07:59 04/17/16 08:17 1 TAB Miconazole Nitrate (Desenex Powder) 1 appln BID EXT 04/17/16 20:00 05/17/16 19:59 04/19/16 08:48 1 APPLN Lidocaine (Lidoderm Patch 5%) 1 patch QAM TD 04/20/16 08:00 05/20/16 07:59 Miscellaneous (Remove Lidoderm Patch) 1 ea DAILY@21 N/A 04/19/16 21:00 05/19/16 20:59 Objective Vital Signs Date Time Temp Pulse Resp B/P Pulse Ox O2 Delivery O2 Flow Rate FiO2 04/19/16 14:46 36.6 60 20 115/58 97 04/19/16 08:08 36.8 55 20 142/70 99 04/19/16 08:00 99 Trach Collar 10.0 40 04/19/16 05:44 64 20 96 Trach Collar 40 04/19/16 02:20 64 94 40 04/19/16 00:27 BiPAP 40 Trach Collar 04/18/16 23:50 64 96 40 04/18/16 23:30 80 18 94 Trach Collar 40 04/18/16 23:07 36.7 60 15 132/68 95 Trach Collar 8.0 04/18/16 20:30 Trach Collar 10.0 Physical Exam General Appearance: WD/WN, no apparent distress, + obese Eyes: normal inspection, EOMI, sclerae normal ENT: normal ENT inspection, pharynx normal Neck: supple, no adenopathy, thyroid normal, trachea midline Respiratory/Chest: chest non-tender, lungs clear, normal breath sounds, no respiratory distress Cardiovascular: regular rate, rhythm, no gallop, no murmur Abdomen: normal bowel sounds, non tender, soft, no organomegaly Extremities: non-tender, no calf tenderness, + swelling Neurologic/Psychiatric: alert, oriented x 3 Skin: normal color, + pertinent finding ( Improving cellulitis) Lymphatic: no adenopathy Laboratory Results Last 24 Hours Test 04/18/16 21:05 04/19/16 05:03 04/19/16 05:16 04/19/16 14:28 White Blood Count 5.64 K/uL 6.58 K/uL Red Blood Count 3.30 M/uL 3.49 M/uL Hemoglobin 8.8 g/dL 9.4 g/dL Hematocrit 28.4 % 30.3 % Mean Corpuscular Volume 86.1 fL 86.8 fL Mean Corpuscular Hemoglobin 26.7 pg 26.9 pg Mean Corpuscular Hemoglobin Concent 31.0 g/dl 31.0 g/dl Platelet Count 367 K/uL 411 K/uL Mean Platelet Volume 8.4 fL 9.3 fL Neutrophils (%) (Auto) 57.0 % 56.1 % Lymphocytes (%) (Auto) 24.5 % 25.2 % Monocytes (%) (Auto) 10.8 % 10.2 % Eosinophils (%) (Auto) 6.6 % 7.4 % Basophils (%) (Auto) 0.7 % 0.6 % Neutrophils # (Auto) 3.22 K/uL 3.69 K/uL Lymphocytes # (Auto) 1.38 K/uL 1.66 K/uL Monocytes # (Auto) 0.61 K/uL 0.67 K/uL Eosinophils # (Auto) 0.37 K/uL 0.49 K/uL Basophils # (Auto) 0.04 K/uL 0.04 K/uL RDW Standard Deviation 54.5 fL 54.4 fL RDW Coefficient of Variation 17.2 % 17.1 % Immature Granulocyte % (Auto) 0.4 % 0.5 % Immature Granulocyte # (Auto) 0.02 K/uL 0.03 K/uL Ovalocytes 1+ Prothrombin Time 24.2 SECONDS Prothromb Time International Ratio 2.2 Sodium Level 140 mmol/L Potassium Level 3.3 mmol/L Chloride Level 99 mmol/L Carbon Dioxide Level 33 mmol/L Anion Gap 8.0 mmol/L Blood Urea Nitrogen 15 mg/dl Creatinine 1.10 mg/dl Est Creatinine Clear Calc Drug Dose 117.9 ml/min Estimated GFR () 84.7 Estimated GFR (Non- 73.1 BUN/Creatinine Ratio 14.0 Random Glucose 92 mg/dl Calcium Level 8.7 mg/dl Vancomycin Level Trough 18.1 mcg/ml Assessment and Plan 60-year-old male with longstanding respiratory failure now with open wound with cellulitis involving right buttock and thigh with cultures positive for resistant Pseudomonas as well as strep and staph species. For now, vancomycin and Zosyn appropriate therapy. Will likely require in the range of 7-10 days. No oral options available for treatment of his pseudomonal infection. Regarding this Pseudomonas in his sputum, given the patient has clinically improved despite antibiotics that should not be effective versus this isolate, I think that further antibiotic therapy directed against this pathogen can be held at the present time, and hopefully this just represents colonization.
[2016-04-19 20:49] LABS: BASO % 0.8 %; BASO ABS # 0.05 K/uL (0-0.2); EOS % 6.6 %; HEMATOCRIT 27.4 % (42-52); IG% 0.5 %; LYMPH % 27.7 %; LYMPH ABS # 1.63 K/uL (1.2-3.4); MEAN CELL VOLUME 86.4 fL (80-100); MEAN CORPUSCULAR HEMOGLOBIN 27.4 pg (25-34); MEAN CORPUSCULAR HGB CONC 31.8 g/dl (32-36); MEAN PLATELET VOLUME 8.2 fL (7.4-10.4); MONO % 8.1 %; NEUT % 56.3 %; PLATELET COUNT 336 K/uL (130-400); RED BLOOD COUNT 3.17 M/uL (4.7-6.1); WHITE BLOOD COUNT 5.89 K/uL (4.8-10.8)
[2016-04-19 21:14] LABS: COMPLETE YES
[2016-04-19] MEDS: TAMSULOSIN HCL 0.4 MG CAP PO SCH (21:20)
[2016-04-19] MEDS: ATORVASTATIN 10 MG TAB PO SCH (21:20)
[2016-04-20] VITALS: O2SAT 97
[2016-04-20] MEDS: PIPERACILL/TAZOBAC IV 4.5 GM in DEXTROSE 5% 100ML IV SCH ×2 (05:06→14:10)
[2016-04-20] MEDS: ALBUTEROL HFA 8 GM INHALER INH SCH ×4 (05:07→23:50)
[2016-04-20] MEDS: IPRATROPIUM BROMIDE HFA INHALER INH SCH ×4 (05:07→23:50)
[2016-04-20] MEDS: LEVOTHYROXINE 100 MCG TAB PO SCH (06:22)
[2016-04-20 06:29] LABS: INR 2.1 (0.9-1.1)
[2016-04-20 07:03] LABS: BUN/CREATININE RATIO 15.2 (10-20); CREATININE 1.1 mg/dl (0.60-1.40); POTASSIUM 3.8 mmol/L (3.5-5.1)
[2016-04-20 07:35] VITALS: BP 109/59; PULSE 65; TEMP 36.7; O2SAT 92
[2016-04-20 08:00] VITALS: O2SAT 92
[2016-04-20] MEDS: ARGININE EXTRA NUTRITION DRINK 1 BOX PO SCH ×2 (08:38→23:15)
[2016-04-20] MEDS: CEROVITE ADV FORMULA TAB PO SCH (08:44)
[2016-04-20] MEDS: METOPROLOL SUCC 25MG EXT REL TAB PO SCH (08:44)
[2016-04-20] MEDS: DOCUSATE SODIUM/SENNA 50/8.6MG TAB PO SCH (08:44)
[2016-04-20] MEDS: POTASSIUM CHLORIDE PWD 20 MEQ PACK PO SCH ×2 (08:44→23:19)
[2016-04-20] MEDS: AMIODARONE 200 MG TAB PO SCH (08:44)
[2016-04-20] MEDS: POLYETHYLENE (MIRALAX) 17 GM PACK PO SCH (08:44)
[2016-04-20] MEDS: PANTOprazole SOD 40 MG TAB PO SCH (08:45)
[2016-04-20] MEDS: SERTRALINE HCL 100 MG TAB PO SCH (08:45)
[2016-04-20] MEDS: LIDODERM (LIDOCAINE) PATCH 5% TD SCH (08:48)
[2016-04-20] MEDS: MICONAZOLE NITRATE POWDER 43 GM EXT SCH ×2 (08:49→21:30)
[2016-04-20] MEDS: FUROSEMIDE 40 MG TAB PO SCH ×2 (08:49→17:32)
--- NOTE | 2016-04-20 17:02 | Progress Note ---
Internal Med Progress Note Date of Service: Apr 20, 2016. Provider Documentation: SUBJECTIVE: complains of bed not being comfortable was changed last night feels that it hurts his tailbone, he is laying deep in the middle , unable to breath better does not feel he will be able to use CPAP tonight due to the uncomfortable position OBJECTIVE: Vital Signs-as noted below Exam: General- morbidly obese, no distress, comfortable Head- atraumatic Eyes- PERRL, EOMI, anicteric ENT- trach collar present Lungs-Coarse breath sound Heart- regular rhythm; no murmur, S1/S2 present Abdomen- normal bowel sounds, soft, obesity Extremities- severe bilateral lymphedema with venous stasis changes , Neuro- no focal neurological deficit alert, oriented, PERRL, EOMI Lab data as noted below. ASSESSMENT & PLAN: Acute on chronic hypoxic respiratory failure - obesity hypoventilation s/p tracheostomy Pulmonology consulted started pt on Pulmozyme recommend to continue Bipap tolerating bipap at night, continue trach care CELLULITIS /OPEN WOUND ON RT LOWER LEG/LEFT POSTERIOR THIGH REGION/BUTTOCKS wound culture and gram stain -growing pseudomonas /staph /gram positive cocci / gram positive bacilli - ID on board afebrile will be on 10th day of Vancomycin /Zosyn IV tomorrow will be discontinued after wards DEPRESSION Psych was consulted, denies of any depressive symptom Zoloft Increased to 50mg PO daily periodic monitoring of EKG for Qtc prolongation -stable Metabolic encephalopathy , Resolved due to hypercapnia /respiratory failure -CT head negative Urinary retention - Right renal mass seen on CT February; on chronic indwelling Fitch - Follows with Dr. Persaud as an outpatient Idiopathic cardiomyopathy/with CHF chronic diastolic dysfunction Ejection Fraction 45-50% no signs of overt failure cont Lasix to PO 40 mg BID Hx Atrial flutter with RVR and Sick sinus syndrome s/p dual chamber pacemaker - rate is controlled - Continue amiodarone and metoprolol INR 2.2 continue Coumadin 3mg PRESSURE ULCER : - Morbid obesity/bed bound -has multiple skin break down -pt has been refusing to be turned by nursing to provide skin care - wound care consulted multiple wounds on buttock and leg area noted , dressing applied with Optifoam Hypothyroidism - Continue levothyroxine Chronic normocytic anemia (anemia of chronic disease) - stable - monitor CBC VTE Prophylaxis - on warfarin GI Prophylaxis - Pantoprazole 40 mg Code - Full no cardioversion Disposition to be determined does not have Bed availability in LTAC is unable to take care of pt at home repeated admission with Pneumonia, lower ext wound infection will need placement Social service following for discharge planning Consultants: Pulmonology PT/OT [employer] Cardio Psych Wound Care Vital Signs: Date Time Temp Pulse Resp B/P Pulse Ox O2 Delivery O2 Flow Rate FiO2 04/20/16 16:00 Trach Collar 12.0 40 04/20/16 08:00 92 Trach Collar 12.0 40 04/20/16 07:35 36.7 65 20 109/59 92 Trach Collar 04/20/16 00:00 97 Trach Collar 12.0 40 04/19/16 23:44 36.8 60 18 127/63 96 1.0 Lab Results: Results Past 24 Hours Test 04/19/16 20:30 04/20/16 05:18 Range/Units White Blood Count 5.89 4.8-10.8 K/uL Red Blood Count 3.17 4.7-6.1 M/uL Hemoglobin 8.7 14.0-18.0 g/dL Hematocrit 27.4 42-52 % Mean Corpuscular Volume 86.4 80-100 fL Mean Corpuscular Hemoglobin 27.4 25-34 pg Mean Corpuscular Hemoglobin Concent 31.8 32-36 g/dl Platelet Count 336 130-400 K/uL Mean Platelet Volume 8.2 7.4-10.4 fL Neutrophils (%) (Auto) 56.3 % Lymphocytes (%) (Auto) 27.7 % Monocytes (%) (Auto) 8.1 % Eosinophils (%) (Auto) 6.6 % Basophils (%) (Auto) 0.8 % Neutrophils # (Auto) 3.31 1.4-6.5 K/uL Lymphocytes # (Auto) 1.63 1.2-3.4 K/uL Monocytes # (Auto) 0.48 0.11-0.59 K/uL Eosinophils # (Auto) 0.39 0-0.5 K/uL Basophils # (Auto) 0.05 0-0.2 K/uL RDW Standard Deviation 55.0 36.4-46.3 fL RDW Coefficient of Variation 17.1 11.5-14.5 % Immature Granulocyte % (Auto) 0.5 % Immature Granulocyte # (Auto) 0.03 0.00-0.02 K/uL Red Blood Cell Morphology Unremarkable Prothrombin Time 23.0 9.0-12.0 SECONDS Prothromb Time International Ratio 2.1 0.9-1.1 Sodium Level 141 136-145 mmol/L Potassium Level 3.8 3.5-5.1 mmol/L Chloride Level 100 98-107 mmol/L Carbon Dioxide Level 30 21-32 mmol/L Anion Gap 11.0 3-11 mmol/L Blood Urea Nitrogen 17 7-18 mg/dl Creatinine 1.10 0.60-1.40 mg/dl Est Creatinine Clear Calc Drug Dose 117.9 ml/min Estimated GFR () 84.7 Estimated GFR (Non- 73.1 BUN/Creatinine Ratio 15.2 10-20 Random Glucose 82 70-99 mg/dl Calcium Level 9.0 8.5-10.1 mg/dl
[2016-04-20] MEDS: WARFARIN SOD 3 MG TAB PO SCH (17:33)
--- NOTE | 2016-04-20 19:27 | Infectious Disease Progress Nt ---
Progress Note Date of Service Apr 20, 2016. Subjective Pt evaluation today including: conversation w/ patient, physical exam, chart review, lab review, review of studies, conversation w/ corporate learning consultant, review of inpatient medication list No new specific complaints. Remains afebrile. Hemodynamically stable. All Other Systems: Reviewed and Negative Medications Current Inpatient Medications Medications (Trade) Dose Ordered Sig/Klely Route Start Time Stop Time Status Last Admin Dose Admin Acetaminophen/ Empty Bag (Ofirmev IV/ Empty Iv Bag 100ml) 65 ml @ 260 mls/hr Q6H PRN IV 03/29/16 07:30 04/28/16 07:29 Pantoprazole Sodium (Protonix Tab) 40 mg QAM PO 04/01/16 09:00 05/01/16 08:59 04/20/16 08:45 40 MG Atorvastatin Calcium (Lipitor Tab) 10 mg HS PO 03/31/16 21:00 04/30/16 20:59 04/19/16 21:20 10 MG Levothyroxine Sodium (Synthroid Tab) 100 mcg DAILYBB PO 04/01/16 06:00 05/01/16 05:59 04/20/16 06:22 100 MCG Multivitamins/ Minerals (Multivitamin W/ Minerals Tab) 1 tab DAILY PO 04/01/16 09:00 05/01/16 08:59 04/20/16 08:44 1 TAB Tamsulosin HCl (Flomax Cap) 0.4 mg HS PO 03/31/16 21:00 04/30/16 20:59 04/19/16 21:20 0.4 MG Amiodarone HCl (Cordarone Tab) 100 mg QAM PO 04/01/16 09:00 05/01/16 08:59 04/20/16 08:44 100 MG Metoprolol Succinate (Toprol Xl Tab) 25 mg QAM PO 04/01/16 09:00 05/01/16 08:59 04/20/16 08:44 25 MG Potassium Chloride (Klor-Con Pwd) 20 meq BID PO 04/01/16 20:00 05/01/16 20:59 04/20/16 08:44 20 MEQ Tramadol HCl (Ultram Tab) 50 mg Q6H PRN PO 04/03/16 02:15 05/03/16 02:14 04/19/16 15:57 50 MG Heparin Sodium (Porcine) (Heparin 10 Unit/ ml 5 ml Flush) 5 ml PRN PRN FLUSH 04/04/16 08:30 05/04/16 08:29 04/19/16 20:36 5 ML Ipratropium [place] (Atrovent Hfa Inhaler) 4 puffs Q6 INH 04/06/16 18:00 05/06/16 17:59 04/20/16 13:00 4 PUFFS Albuterol (Ventolin Hfa Inhaler) 4 puffs Q6 INH 04/06/16 18:00 05/06/16 17:59 04/20/16 13:00 4 PUFFS Polyethylene (Miralax Powder Packet) 17 gm DAILY PO 04/06/16 15:15 05/06/16 15:14 04/20/16 08:44 17 GM Bisacodyl (Dulcolax Tab) 5 mg DAILY PRN PO 04/06/16 15:15 05/06/16 15:14 Furosemide (Lasix tab) 40 mg BID17 PO 04/08/16 17:00 05/08/16 16:59 04/20/16 17:32 40 MG Sertraline HCl (Zoloft Tab) 100 mg QAM PO 04/10/16 08:00 05/10/16 07:59 04/20/16 08:45 100 MG Vancomycin HCl (Consult) 1 ea UD PRN N/A 04/11/16 18:45 04/20/16 23:59 Piperacillin Sod/ Tazobactam Sod 1 ea 1 ea UD PRN N/A 04/12/16 21:30 04/21/16 23:59 Piperacillin Sod/ Tazobactam Sod/ Dextrose (Zosyn Iv/D5 100ml) 120 ml @ 30 mls/hr Q8H IV 04/12/16 22:00 04/21/16 23:59 04/20/16 14:10 30 MLS/HR Warfarin Sodium 3 mg 3 mg DAILY@16 PO 04/15/16 16:00 05/15/16 15:59 04/20/16 17:33 3 MG Vancomycin HCl/ Sodium Chloride (Vancomycin Inj/ Nss 500ml) 540 ml @ 200 mls/hr Q30H IV 04/15/16 21:00 04/20/16 23:59 Future hold 04/19/16 16:38 200 MLS/HR Enteral Nutritional Formula (Arginaid Extra) 1 box BID PO 04/16/16 20:00 05/16/16 19:59 04/20/16 08:38 1 BOX Al Hydroxide/Mg Hydroxide (Maalox Susp) 30 ml Q6H PRN PO 04/16/16 17:00 05/16/16 16:59 04/16/16 21:10 30 ML Senna/Docusate Sodium (Senokot S Tab) 1 tab QAM PO 04/17/16 08:00 05/17/16 07:59 04/20/16 08:44 1 TAB Miconazole Nitrate (Desenex Powder) 1 appln BID EXT 04/17/16 20:00 05/17/16 19:59 04/20/16 08:49 1 APPLN Lidocaine (Lidoderm Patch 5%) 1 patch QAM TD 04/20/16 08:00 05/20/16 07:59 04/20/16 08:48 1 PATCH Miscellaneous (Remove Lidoderm Patch) 1 ea DAILY@21 N/A 04/19/16 21:00 05/19/16 20:59 04/19/16 21:19 1 EA Heparin Sodium (Porcine) (Heparin 10 Unit/ ml 5 ml Flush) 5 ml PRN PRN FLUSH 04/19/16 20:45 05/19/16 20:44 04/20/16 10:08 5 ML Objective Vital Signs Date Time Temp Pulse Resp B/P Pulse Ox O2 Delivery O2 Flow Rate FiO2 04/20/16 08:00 92 Trach Collar 12.0 40 04/20/16 07:35 36.7 65 20 109/59 92 Trach Collar 04/20/16 00:00 97 Trach Collar 12.0 40 04/19/16 23:44 36.8 60 18 127/63 96 1.0 Physical Exam General Appearance: WD/WN, no apparent distress, + obese Eyes: normal inspection, sclerae normal ENT: normal ENT inspection, pharynx normal Neck: supple, no adenopathy, trachea midline Respiratory/Chest: lungs clear, normal breath sounds, no respiratory distress Cardiovascular: regular rate, rhythm, no gallop, no murmur Abdomen: normal bowel sounds, non tender, soft, no organomegaly Extremities: non-tender, + swelling Neurologic/Psychiatric: alert, oriented x 3 Skin: normal color, + pertinent finding ( Improving cellulitis) Lymphatic: no adenopathy Laboratory Results Last 24 Hours Test 04/19/16 20:30 04/20/16 05:18 White Blood Count 5.89 K/uL Red Blood Count 3.17 M/uL Hemoglobin 8.7 g/dL Hematocrit 27.4 % Mean Corpuscular Volume 86.4 fL Mean Corpuscular Hemoglobin 27.4 pg Mean Corpuscular Hemoglobin Concent 31.8 g/dl Platelet Count 336 K/uL Mean Platelet Volume 8.2 fL Neutrophils (%) (Auto) 56.3 % Lymphocytes (%) (Auto) 27.7 % Monocytes (%) (Auto) 8.1 % Eosinophils (%) (Auto) 6.6 % Basophils (%) (Auto) 0.8 % Neutrophils # (Auto) 3.31 K/uL Lymphocytes # (Auto) 1.63 K/uL Monocytes # (Auto) 0.48 K/uL Eosinophils # (Auto) 0.39 K/uL Basophils # (Auto) 0.05 K/uL RDW Standard Deviation 55.0 fL RDW Coefficient of Variation 17.1 % Immature Granulocyte % (Auto) 0.5 % Immature Granulocyte # (Auto) 0.03 K/uL Red Blood Cell Morphology Unremarkable Prothrombin Time 23.0 SECONDS Prothromb Time International Ratio 2.1 Sodium Level 141 mmol/L Potassium Level 3.8 mmol/L Chloride Level 100 mmol/L Carbon Dioxide Level 30 mmol/L Anion Gap 11.0 mmol/L Blood Urea Nitrogen 17 mg/dl Creatinine 1.10 mg/dl Est Creatinine Clear Calc Drug Dose 117.9 ml/min Estimated GFR () 84.7 Estimated GFR (Non- 73.1 BUN/Creatinine Ratio 15.2 Random Glucose 82 mg/dl Calcium Level 9.0 mg/dl Assessment and Plan 60-year-old male with longstanding respiratory failure now with open wound with cellulitis involving right buttock and thigh with cultures positive for resistant Pseudomonas as well as strep and staph species. For now, vancomycin and Zosyn appropriate therapy. Will likely require in the range of 7-10 days. Given lack of oral alternatives, will need clinical response to dictate length of Rx. Will discuss.
[2016-04-20] MEDS: VANCOMYCIN INJ 2,000 MG in SODIUM CHLORIDE 0.9% 500ML 500 ML IV SCH (19:36)
[2016-04-20 20:48] VITALS: BP 149/62; PULSE 61; TEMP 36.8; O2SAT 96
[2016-04-20 21:05] LABS: BASO % 0.8 %; BASO ABS # 0.06 K/uL (0-0.2); EOS % 4.9 %; HEMATOCRIT 27.6 % (42-52); IG% 0.4 %; LYMPH % 20.3 %; LYMPH ABS # 1.54 K/uL (1.2-3.4); MEAN CELL VOLUME 85.4 fL (80-100); MEAN CORPUSCULAR HEMOGLOBIN 27.2 pg (25-34); MEAN CORPUSCULAR HGB CONC 31.9 g/dl (32-36); MEAN PLATELET VOLUME 8.3 fL (7.4-10.4); NEUT % 63.6 %; PLATELET COUNT 342 K/uL (130-400); RED BLOOD COUNT 3.23 M/uL (4.7-6.1); WHITE BLOOD COUNT 7.57 K/uL (4.8-10.8)
[2016-04-20 21:35] LABS: COMPLETE YES
[2016-04-20] MEDS: ATORVASTATIN 10 MG TAB PO SCH (23:17)
[2016-04-20] MEDS: TAMSULOSIN HCL 0.4 MG CAP PO SCH (23:17)
[2016-04-21] VITALS (7 sets, daily range): BP systolic 106–153; BP diastolic 63–74; PULSE 59–82; TEMP 36.7–36.8; O2SAT 94–98
[2016-04-21] MEDS: PIPERACILL/TAZOBAC IV 4.5 GM in DEXTROSE 5% 100ML IV SCH ×4 (00:59→21:46)
[2016-04-21] MEDS: IPRATROPIUM BROMIDE HFA INHALER INH SCH ×3 (05:20→18:27)
[2016-04-21] MEDS: LEVOTHYROXINE 100 MCG TAB PO SCH (05:21)
[2016-04-21] MEDS: ALBUTEROL HFA 8 GM INHALER INH SCH ×3 (05:21→18:27)
[2016-04-21 07:08] LABS: BUN/CREATININE RATIO 14.7 (10-20); CALCIUM 8.8 mg/dl (8.5-10.1); CREATININE 1.1 mg/dl (0.60-1.40); POTASSIUM 3.5 mmol/L (3.5-5.1)
[2016-04-21] MEDS: ARGININE EXTRA NUTRITION DRINK 1 BOX PO SCH ×2 (08:00→21:47)
[2016-04-21] MEDS: DOCUSATE SODIUM/SENNA 50/8.6MG TAB PO SCH (08:00)
[2016-04-21] MEDS: POLYETHYLENE (MIRALAX) 17 GM PACK PO SCH (08:00)
[2016-04-21] MEDS: METOPROLOL SUCC 25MG EXT REL TAB PO SCH (08:00)
[2016-04-21] MEDS: MICONAZOLE NITRATE POWDER 43 GM EXT SCH ×3 (08:00→21:24)
[2016-04-21] MEDS: AMIODARONE 200 MG TAB PO SCH (08:45)
[2016-04-21] MEDS: SERTRALINE HCL 100 MG TAB PO SCH (08:46)
[2016-04-21] MEDS: CEROVITE ADV FORMULA TAB PO SCH (08:46)
[2016-04-21] MEDS: PANTOprazole SOD 40 MG TAB PO SCH (08:47)
[2016-04-21] MEDS: POTASSIUM CHLORIDE PWD 20 MEQ PACK PO SCH ×2 (08:47→21:20)
[2016-04-21] MEDS: LIDODERM (LIDOCAINE) PATCH 5% TD SCH (08:48)
[2016-04-21] MEDS: FUROSEMIDE 40 MG TAB PO SCH ×2 (08:48→16:16)
--- NOTE | 2016-04-21 11:12 | Pulmonology Progress Note ---
Pulmonary Progress Note Date of Service Apr 21, 2016. Attending Corie Subjective Feeling ok today. Reports increased production of brown/amezcua thick sputum with chest congestion. Intermittent dyspnea but reports that this is not atypical for him. No chest pain. Objective Today: - 12L/40% - trach collar - Hypertensive, afebrile - Off Vanco, current + continued PIP-tazo - Waiting for placement Physical exam: Constitutional: morbidly obese male lying in hospital bed. No acute distress HEENT: EOMi, PERRLA, no injection, moist mucous membranes Neck: trach collar + cuff, no purulence Respiratory: Non-labored respirations. No dyspnea with conversation. Bilateral coarse rales/secretions. No cough. Cardiac: S1-S2 regular rate and rhythm distant heart sounds Assessment & Plan 60-year-old gentleman with obesity hypoventilation syndrome: - Obesity hypoventilation: patient is resistant to BiPAP although this continues to be recommended - Pseudomonas + respiratory culture this visit - suspected colonization, observe clinically - Increased sputum production and chest congestion today: - repeat sputum culture and CXR - pulmonary toilet, positional changes, initiate expectorant if continued Data Medications: Current Inpatient Medications Medications (Trade) Dose Ordered Sig/Kelly Route Start Time Stop Time Status Last Admin Dose Admin Acetaminophen/ Empty Bag (Ofirmev IV/ Empty Iv Bag 100ml) 65 ml @ 260 mls/hr Q6H PRN IV 03/29/16 07:30 04/28/16 07:29 Pantoprazole Sodium (Protonix Tab) 40 mg QAM PO 04/01/16 09:00 05/01/16 08:59 04/21/16 08:47 40 MG Atorvastatin Calcium (Lipitor Tab) 10 mg HS PO 03/31/16 21:00 04/30/16 20:59 04/20/16 23:17 10 MG Levothyroxine Sodium (Synthroid Tab) 100 mcg DAILYBB PO 04/01/16 06:00 05/01/16 05:59 04/21/16 05:21 100 MCG Multivitamins/ Minerals (Multivitamin W/ Minerals Tab) 1 tab DAILY PO 04/01/16 09:00 05/01/16 08:59 04/21/16 08:46 1 TAB Tamsulosin HCl (Flomax Cap) 0.4 mg HS PO 03/31/16 21:00 04/30/16 20:59 04/20/16 23:17 0.4 MG Amiodarone HCl (Cordarone Tab) 100 mg QAM PO 04/01/16 09:00 05/01/16 08:59 04/21/16 08:45 100 MG Metoprolol Succinate (Toprol Xl Tab) 25 mg QAM PO 04/01/16 09:00 05/01/16 08:59 04/20/16 08:44 25 MG Potassium Chloride (Klor-Con Pwd) 20 meq BID PO 04/01/16 20:00 05/01/16 20:59 04/21/16 08:47 20 MEQ Tramadol HCl (Ultram Tab) 50 mg Q6H PRN PO 04/03/16 02:15 05/03/16 02:14 04/19/16 15:57 50 MG Heparin Sodium (Porcine) (Heparin 10 Unit/ ml 5 ml Flush) 5 ml PRN PRN FLUSH 04/04/16 08:30 05/04/16 08:29 04/19/16 20:36 5 ML Ipratropium [place] (Atrovent Hfa Inhaler) 4 puffs Q6 INH 04/06/16 18:00 05/06/16 17:59 04/21/16 05:20 4 PUFFS Albuterol (Ventolin Hfa Inhaler) 4 puffs Q6 INH 04/06/16 18:00 05/06/16 17:59 04/21/16 05:21 4 PUFFS Polyethylene (Miralax Powder Packet) 17 gm DAILY PO 04/06/16 15:15 05/06/16 15:14 04/20/16 08:44 17 GM Bisacodyl (Dulcolax Tab) 5 mg DAILY PRN PO 04/06/16 15:15 05/06/16 15:14 Furosemide (Lasix tab) 40 mg BID17 PO 04/08/16 17:00 05/08/16 16:59 04/21/16 08:48 40 MG Sertraline HCl (Zoloft Tab) 100 mg QAM PO 04/10/16 08:00 05/10/16 07:59 04/21/16 08:46 100 MG Piperacillin Sod/ Tazobactam Sod 1 ea 1 ea UD PRN N/A 04/12/16 21:30 04/21/16 23:59 Piperacillin Sod/ Tazobactam Sod/ Dextrose (Zosyn Iv/D5 100ml) 120 ml @ 30 mls/hr Q8H IV 04/12/16 22:00 04/21/16 23:59 04/21/16 05:20 30 MLS/HR Warfarin Sodium (Coumadin Tab) 3 mg DAILY@16 PO 04/15/16 16:00 05/15/16 15:59 04/20/16 17:33 3 MG Enteral Nutritional Formula (Arginaid Extra) 1 box BID PO 04/16/16 20:00 05/16/16 19:59 04/20/16 23:15 1 BOX Al Hydroxide/Mg Hydroxide (Maalox Susp) 30 ml Q6H PRN PO 04/16/16 17:00 05/16/16 16:59 04/16/16 21:10 30 ML Senna/Docusate Sodium (Senokot S Tab) 1 tab QAM PO 04/17/16 08:00 05/17/16 07:59 04/20/16 08:44 1 TAB Miconazole Nitrate (Desenex Powder) 1 appln BID EXT 04/17/16 20:00 05/17/16 19:59 04/20/16 21:30 1 APPLN Lidocaine (Lidoderm Patch 5%) 1 patch QAM TD 04/20/16 08:00 05/20/16 07:59 04/21/16 08:48 1 PATCH Miscellaneous (Remove Lidoderm Patch) 1 ea DAILY@21 N/A 04/19/16 21:00 05/19/16 20:59 04/20/16 23:16 1 EA Heparin Sodium (Porcine) (Heparin 10 Unit/ ml 5 ml Flush) 5 ml PRN PRN FLUSH 04/19/16 20:45 05/19/16 20:44 04/20/16 10:08 5 ML I & O: 24-Hour Column 04/21/16 08:00 Intake Total 1195 ml Output Total 3800 ml Balance -2605 ml Vital Signs: Date Time Temp Pulse Resp B/P Pulse Ox O2 Delivery O2 Flow Rate FiO2 04/21/16 08:00 97 Trach Collar 12.0 40 04/21/16 07:46 36.7 59 18 153/74 97 Trach Collar 04/21/16 00:05 96 Trach Collar 12.0 40 1/11/17 00:04 36.8 60 23 106/67 94 Room Air 04/20/16 20:48 36.8 61 18 149/62 96 Room Air 04/20/16 16:00 Trach Collar 12.0 40 Laboratory Results: Last 24 Hours Test 04/20/16 20:52 04/21/16 05:48 White Blood Count 7.57 K/uL Red Blood Count 3.23 M/uL Hemoglobin 8.8 g/dL Hematocrit 27.6 % Mean Corpuscular Volume 85.4 fL Mean Corpuscular Hemoglobin 27.2 pg Mean Corpuscular Hemoglobin Concent 31.9 g/dl Platelet Count 342 K/uL Mean Platelet Volume 8.3 fL Neutrophils (%) (Auto) 63.6 % Lymphocytes (%) (Auto) 20.3 % Monocytes (%) (Auto) 10.0 % Eosinophils (%) (Auto) 4.9 % Basophils (%) (Auto) 0.8 % Neutrophils # (Auto) 4.81 K/uL Lymphocytes # (Auto) 1.54 K/uL Monocytes # (Auto) 0.76 K/uL Eosinophils # (Auto) 0.37 K/uL Basophils # (Auto) 0.06 K/uL RDW Standard Deviation 54.0 fL RDW Coefficient of Variation 17.0 % Immature Granulocyte % (Auto) 0.4 % Immature Granulocyte # (Auto) 0.03 K/uL Red Blood Cell Morphology Unremarkable Sodium Level 140 mmol/L Potassium Level 3.5 mmol/L Chloride Level 100 mmol/L Carbon Dioxide Level 31 mmol/L Anion Gap 9.0 mmol/L Blood Urea Nitrogen 16 mg/dl Creatinine 1.10 mg/dl Est Creatinine Clear Calc Drug Dose 117.9 ml/min Estimated GFR () 84.7 Estimated GFR (Non- 73.1 BUN/Creatinine Ratio 14.7 Random Glucose 110 mg/dl Calcium Level 8.8 mg/dl
--- NOTE | 2016-04-21 12:02 | DIAGNOSTIC IMAGING REPORT ---
CHEST ONE VIEW PORTABLE CLINICAL HISTORY: Increased sputum production COMPARISON STUDY: Chest CT March 29, 2016 and chest radiograph March 30, 2016 FINDINGS: A tracheostomy tube is in place. There is a dual lead left subclavian pacemaker and a right PICC. Lung volumes are diminished. This is unchanged. There is pulmonary vascular congestion with possible mild pulmonary edema. Left basilar opacity and a left pleural effusion persists. There may be a small right pleural effusion. There is no pneumothorax. Cardiomegaly is unchanged. IMPRESSION: 1. Persistent left basilar opacity may reflect consolidation or atelectasis and small bilateral pleural effusions. 2. Pulmonary vascular congestion with possible mild pulmonary edema. Electronically signed by: Daquan Chapman M.D. 04/21/2016 12:00 PM Dictated Date/Time: 04/21/2016 11:58 AM
[2016-04-21] MEDS: TRAMADOL HCL 50 MG TAB PO PRN (16:14)
[2016-04-21] MEDS: WARFARIN SOD 3 MG TAB PO SCH (16:15)
--- NOTE | 2016-04-21 18:24 | Progress Note ---
Internal Med Progress Note Date of Service: Apr 21, 2016. Provider Documentation: SUBJECTIVE: continues to have thick sputum no fever or chills on trach collar waiting for placement in LTAC OBJECTIVE: Vital Signs-as noted below Exam: General- morbidly obese, no distress, comfortable Head- atraumatic Eyes- PERRL, EOMI, anicteric ENT- trach collar present Lungs-Coarse breath sound Heart- regular rhythm; no murmur, S1/S2 present Abdomen- normal bowel sounds, soft, obesity Extremities- severe bilateral lymphedema with venous stasis changes , Neuro- no focal neurological deficit alert, oriented, PERRL, EOMI Lab data as noted below. ASSESSMENT & PLAN: Acute on chronic hypoxic respiratory failure - obesity hypoventilation s/p tracheostomy Pulmonology consulted started pt on Pulmozyme recommend to continue Bipap tolerating bipap at night, continue trach care repeat Cxray today : 1. Persistent left basilar opacity may reflect consolidation or atelectasis and small bilateral pleural effusions. 2. Pulmonary vascular congestion with possible mild pulmonary edema. CELLULITIS /OPEN WOUND ON RT LOWER LEG/LEFT POSTERIOR THIGH REGION/BUTTOCKS wound culture and gram stain -growing pseudomonas /staph /gram positive cocci / gram positive bacilli - ID on board afebrile vancomycin D/endy on Zosyn DEPRESSION Psych was consulted, denies of any depressive symptom Zoloft Increased to 50mg PO daily periodic monitoring of EKG for Qtc prolongation -stable Metabolic encephalopathy , Resolved due to hypercapnia /respiratory failure -CT head negative Urinary retention - Right renal mass seen on CT February; on chronic indwelling Fitch - Follows with Dr. Persaud as an outpatient Idiopathic cardiomyopathy/with CHF chronic diastolic dysfunction Ejection Fraction 45-50% no signs of overt failure cont Lasix to PO 40 mg BID Hx Atrial flutter with RVR and Sick sinus syndrome s/p dual chamber pacemaker - rate is controlled - Continue amiodarone and metoprolol INR 2.2 continue Coumadin 3mg PRESSURE ULCER : - Morbid obesity/bed bound -has multiple skin break down -pt has been refusing to be turned by nursing to provide skin care - wound care consulted multiple wounds on buttock and leg area noted , dressing applied with Optifoam Hypothyroidism - Continue levothyroxine Chronic normocytic anemia (anemia of chronic disease) - stable - monitor CBC VTE Prophylaxis - on warfarin GI Prophylaxis - Pantoprazole 40 mg Code - Full no cardioversion Disposition to be determined does not have Bed availability in LTAC is unable to take care of pt at home repeated admission with Pneumonia, lower ext wound infection will need placement Social service following for discharge planning Consultants: Pulmonology 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 Vital Signs: Date Time Temp Pulse Resp B/P Pulse Ox O2 Delivery O2 Flow Rate FiO2 04/21/16 14:41 36.7 61 18 129/63 98 Trach Collar 04/21/16 08:00 97 Trach Collar 12.0 40 04/21/16 07:46 36.7 59 18 153/74 97 Trach Collar 04/21/16 00:05 96 Trach Collar 12.0 40 04/21/16 00:04 36.8 60 23 106/67 94 Room Air 04/20/16 20:48 36.8 61 18 149/62 96 Room Air Lab Results: Results Past 24 Hours Test 04/20/16 20:52 04/21/16 05:48 Range/Units White Blood Count 7.57 4.8-10.8 K/uL Red Blood Count 3.23 4.7-6.1 M/uL Hemoglobin 8.8 14.0-18.0 g/dL Hematocrit 27.6 42-52 % Mean Corpuscular Volume 85.4 80-100 fL Mean Corpuscular Hemoglobin 27.2 25-34 pg Mean Corpuscular Hemoglobin Concent 31.9 32-36 g/dl Platelet Count 342 130-400 K/uL Mean Platelet Volume 8.3 7.4-10.4 fL Neutrophils (%) (Auto) 63.6 % Lymphocytes (%) (Auto) 20.3 % Monocytes (%) (Auto) 10.0 % Eosinophils (%) (Auto) 4.9 % Basophils (%) (Auto) 0.8 % Neutrophils # (Auto) 4.81 1.4-6.5 K/uL Lymphocytes # (Auto) 1.54 1.2-3.4 K/uL Monocytes # (Auto) 0.76 0.11-0.59 K/uL Eosinophils # (Auto) 0.37 0-0.5 K/uL Basophils # (Auto) 0.06 0-0.2 K/uL RDW Standard Deviation 54.0 36.4-46.3 fL RDW Coefficient of Variation 17.0 11.5-14.5 % Immature Granulocyte % (Auto) 0.4 % Immature Granulocyte # (Auto) 0.03 0.00-0.02 K/uL Red Blood Cell Morphology Unremarkable Sodium Level 140 136-145 mmol/L Potassium Level 3.5 3.5-5.1 mmol/L Chloride Level 100 98-107 mmol/L Carbon Dioxide Level 31 21-32 mmol/L Anion Gap 9.0 3-11 mmol/L Blood Urea Nitrogen 16 7-18 mg/dl Creatinine 1.10 0.60-1.40 mg/dl Est Creatinine Clear Calc Drug Dose 117.9 ml/min Estimated GFR () 84.7 Estimated GFR (Non- 73.1 BUN/Creatinine Ratio 14.7 10-20 Random Glucose 110 70-99 mg/dl Calcium Level 8.8 8.5-10.1 mg/dl
[2016-04-21] MEDS: ATORVASTATIN 10 MG TAB PO SCH (21:09)
[2016-04-21] MEDS: TAMSULOSIN HCL 0.4 MG CAP PO SCH (21:10)
[2016-04-22] VITALS (7 sets, daily range): BP systolic 103–161; BP diastolic 54–73; PULSE 59–72; TEMP 36.6–36.7; O2SAT 93–98
[2016-04-22] MEDS: ALBUTEROL HFA 8 GM INHALER INH SCH ×6 (06:00→18:37)
[2016-04-22] MEDS: IPRATROPIUM BROMIDE HFA INHALER INH SCH ×6 (06:00→18:36)
[2016-04-22] MEDS: LEVOTHYROXINE 100 MCG TAB PO SCH (06:20)
[2016-04-22 06:21] LABS: BUN/CREATININE RATIO 17.4 (10-20); CALCIUM 8.6 mg/dl (8.5-10.1); CREATININE 0.99 mg/dl (0.60-1.40); POTASSIUM 3.5 mmol/L (3.5-5.1)
[2016-04-22] MEDS: POLYETHYLENE (MIRALAX) 17 GM PACK PO SCH (08:00)
[2016-04-22] MEDS: DOCUSATE SODIUM/SENNA 50/8.6MG TAB PO SCH (08:00)
[2016-04-22] MEDS: MICONAZOLE NITRATE POWDER 43 GM EXT SCH ×2 (08:00→20:00)
[2016-04-22] MEDS: ARGININE EXTRA NUTRITION DRINK 1 BOX PO SCH ×2 (08:37→20:50)
[2016-04-22] MEDS: METOPROLOL SUCC 25MG EXT REL TAB PO SCH (08:37)
[2016-04-22] MEDS: AMIODARONE 200 MG TAB PO SCH (08:37)
[2016-04-22] MEDS: SERTRALINE HCL 100 MG TAB PO SCH (08:37)
[2016-04-22] MEDS: PANTOprazole SOD 40 MG TAB PO SCH (08:38)
[2016-04-22] MEDS: CEROVITE ADV FORMULA TAB PO SCH (08:38)
[2016-04-22] MEDS: POTASSIUM CHLORIDE PWD 20 MEQ PACK PO SCH ×2 (08:38→20:51)
[2016-04-22] MEDS: LIDODERM (LIDOCAINE) PATCH 5% TD SCH (08:38)
[2016-04-22] MEDS: FUROSEMIDE 40 MG TAB PO SCH ×2 (08:39→17:36)
[2016-04-22] MEDS: WARFARIN SOD 3 MG TAB PO SCH (16:10)
--- NOTE | 2016-04-22 18:05 | Progress Note ---
Internal Med Progress Note Date of Service: Apr 22, 2016. Provider Documentation: SUBJECTIVE: waiting for placement offers no complain OBJECTIVE: Vital Signs-as noted below Exam: General- morbidly obese, no distress, comfortable Head- atraumatic Eyes- PERRL, EOMI, anicteric ENT- trach collar present Lungs-Coarse breath sound Heart- regular rhythm; no murmur, S1/S2 present Abdomen- normal bowel sounds, soft, obesity Extremities- severe bilateral lymphedema with venous stasis changes , Neuro- no focal neurological deficit alert, oriented, PERRL, EOMI Lab data as noted below. ASSESSMENT & PLAN: Acute on chronic hypoxic respiratory failure - obesity hypoventilation s/p tracheostomy Pulmonology consulted started pt on Pulmozyme recommend to continue Bipap tolerating bipap at night, continue trach care repeat Cxray today : 1. Persistent left basilar opacity may reflect consolidation or atelectasis and small bilateral pleural effusions. 2. Pulmonary vascular congestion with possible mild pulmonary edema. CELLULITIS /OPEN WOUND ON RT LOWER LEG/LEFT POSTERIOR THIGH REGION/BUTTOCKS wound culture and gram stain -growing pseudomonas /staph /gram positive cocci / gram positive bacilli - ID on board afebrile vancomycin D/endy on Zosyn DEPRESSION Psych was consulted, denies of any depressive symptom Zoloft Increased to 50mg PO daily periodic monitoring of EKG for Qtc prolongation -stable Metabolic encephalopathy , Resolved due to hypercapnia /respiratory failure -CT head negative Urinary retention - Right renal mass seen on CT February; on chronic indwelling Fitch - Follows with Dr. Persaud as an outpatient Idiopathic cardiomyopathy/with CHF chronic diastolic dysfunction Ejection Fraction 45-50% no signs of overt failure cont Lasix to PO 40 mg BID Hx Atrial flutter with RVR and Sick sinus syndrome s/p dual chamber pacemaker - rate is controlled - Continue amiodarone and metoprolol continue Coumadin 3mg follow PT/INR PRESSURE ULCER : - Morbid obesity/bed bound -has multiple skin break down -pt has been refusing to be turned by nursing to provide skin care - wound care consulted multiple wounds on buttock and leg area noted , dressing applied with Optifoam Hypothyroidism - Continue levothyroxine Chronic normocytic anemia (anemia of chronic disease) - stable - monitor CBC VTE Prophylaxis - on warfarin GI Prophylaxis - Pantoprazole 40 mg Code - Full no cardioversion Disposition to be determined will need placement in 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 -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 is unable to take care of pt at home repeated admission with Pneumonia, lower ext wound infection will need placement Social service following for discharge planning Consultants: Pulmonology 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 Psych Wound Care Vital Signs: Date Time Temp Pulse Resp B/P Pulse Ox O2 Delivery O2 Flow Rate FiO2 04/22/16 16:30 93 Trach Collar 12.0 40 04/22/16 15:49 36.7 61 18 130/73 93 Trach Collar 10.0 04/22/16 08:06 72 20 96 Trach Collar 40 04/22/16 08:00 95 Trach Collar 12.0 40 04/22/16 07:56 36.6 67 20 131/54 95 Trach Collar 10.0 04/22/16 04:59 65 103/55 98 BiPAP 04/22/16 00:55 36.7 59 20 161/73 98 Trach Collar 04/22/16 00:00 BiPAP Trach Collar 04/21/16 22:54 82 97 40 Lab Results: Results Past 24 Hours Test 04/22/16 05:06 Range/Units Sodium Level 140 136-145 mmol/L Potassium Level 3.5 3.5-5.1 mmol/L Chloride Level 100 98-107 mmol/L Carbon Dioxide Level 32 21-32 mmol/L Anion Gap 8.0 3-11 mmol/L Blood Urea Nitrogen 17 7-18 mg/dl Creatinine 0.99 0.60-1.40 mg/dl Est Creatinine Clear Calc Drug Dose 131.0 ml/min Estimated GFR () 96.2 Estimated GFR (Non- 83.0 BUN/Creatinine Ratio 17.4 10-20 Random Glucose 90 70-99 mg/dl Calcium Level 8.6 8.5-10.1 mg/dl
[2016-04-22] MEDS: ATORVASTATIN 10 MG TAB PO SCH (20:51)
[2016-04-22] MEDS: TAMSULOSIN HCL 0.4 MG CAP PO SCH (20:51)
[2016-04-23] VITALS (9 sets, daily range): BP systolic 99–129; BP diastolic 61–67; PULSE 56–60; TEMP 36.4–37.1; O2SAT 95–97
[2016-04-23 05:44] LABS: INR 1.7 (0.9-1.1); PROTHROMBIN TIME (PATIENT) 18.9 SECONDS (9.0-12.0)
[2016-04-23] MEDS: IPRATROPIUM BROMIDE HFA INHALER INH SCH ×4 (06:00→16:58)
[2016-04-23] MEDS: ALBUTEROL HFA 8 GM INHALER INH SCH ×4 (06:00→16:59)
[2016-04-23] MEDS: LEVOTHYROXINE 100 MCG TAB PO SCH (06:03)
[2016-04-23] MEDS: PANTOprazole SOD 40 MG TAB PO SCH (08:44)
[2016-04-23] MEDS: AMIODARONE 200 MG TAB PO SCH (08:44)
[2016-04-23] MEDS: DOCUSATE SODIUM/SENNA 50/8.6MG TAB PO SCH (08:44)
[2016-04-23] MEDS: POTASSIUM CHLORIDE PWD 20 MEQ PACK PO SCH ×2 (08:44→21:17)
[2016-04-23] MEDS: METOPROLOL SUCC 25MG EXT REL TAB PO SCH (08:45)
[2016-04-23] MEDS: SERTRALINE HCL 100 MG TAB PO SCH (08:45)
[2016-04-23] MEDS: FUROSEMIDE 40 MG TAB PO SCH ×2 (08:45→16:58)
[2016-04-23] MEDS: CEROVITE ADV FORMULA TAB PO SCH (08:45)
[2016-04-23] MEDS: POLYETHYLENE (MIRALAX) 17 GM PACK PO SCH (08:46)
[2016-04-23] MEDS: LIDODERM (LIDOCAINE) PATCH 5% TD SCH (08:46)
[2016-04-23] MEDS: MICONAZOLE NITRATE POWDER 43 GM EXT SCH ×2 (09:00→21:19)
[2016-04-23] MEDS: ARGININE EXTRA NUTRITION DRINK 1 BOX PO SCH ×2 (09:00→21:19)
[2016-04-23] MEDS: WARFARIN SOD 3 MG TAB PO SCH (16:57)
--- NOTE | 2016-04-23 19:58 | Infectious Disease Progress Nt ---
Progress Note Date of Service Apr 23, 2016. Subjective Pt evaluation today including: conversation w/ patient, physical exam, chart review, lab review, review of studies, conversation w/ it infrastructure consultant, review of inpatient medication list No new specific complaints today. Remains afebrile. No increase in shortness of breath. Continues to tolerate antibiotics. All Other Systems: Reviewed and Negative Medications Current Inpatient Medications Medications (Trade) Dose Ordered Sig/Kelly Route Start Time Stop Time Status Last Admin Dose Admin Acetaminophen/ Empty Bag (Ofirmev IV/ Empty Iv Bag 100ml) 65 ml @ 260 mls/hr Q6H PRN IV 03/29/16 07:30 04/28/16 07:29 Pantoprazole Sodium (Protonix Tab) 40 mg QAM PO 04/01/16 09:00 05/01/16 08:59 04/23/16 08:44 40 MG Atorvastatin Calcium (Lipitor Tab) 10 mg HS PO 03/31/16 21:00 04/30/16 20:59 04/22/16 20:51 10 MG Levothyroxine Sodium (Synthroid Tab) 100 mcg DAILYBB PO 04/01/16 06:00 05/01/16 05:59 04/22/16 06:20 100 MCG Multivitamins/ Minerals (Multivitamin W/ Minerals Tab) 1 tab DAILY PO 04/01/16 09:00 05/01/16 08:59 04/23/16 08:45 1 TAB Tamsulosin HCl (Flomax Cap) 0.4 mg HS PO 03/31/16 21:00 04/30/16 20:59 04/22/16 20:51 0.4 MG Amiodarone HCl (Cordarone Tab) 100 mg QAM PO 04/01/16 09:00 05/01/16 08:59 04/23/16 08:44 100 MG Metoprolol Succinate (Toprol Xl Tab) 25 mg QAM PO 04/01/16 09:00 05/01/16 08:59 04/23/16 08:45 25 MG Potassium Chloride (Klor-Con Pwd) 20 meq BID PO 04/01/16 20:00 05/01/16 20:59 04/23/16 08:44 20 MEQ Tramadol HCl (Ultram Tab) 50 mg Q6H PRN PO 04/03/16 02:15 05/03/16 02:14 04/21/16 16:14 50 MG Heparin Sodium (Porcine) (Heparin 10 Unit/ ml 5 ml Flush) 5 ml PRN PRN FLUSH 04/04/16 08:30 05/04/16 08:29 04/19/16 20:36 5 ML Ipratropium Saunemin (Atrovent Hfa Inhaler) 4 puffs Q6 INH 04/06/16 18:00 05/06/16 17:59 04/23/16 16:58 4 PUFFS Albuterol (Ventolin Hfa Inhaler) 4 puffs Q6 INH 04/06/16 18:00 05/06/16 17:59 04/23/16 16:59 4 PUFFS Polyethylene (Miralax Powder Packet) 17 gm DAILY PO 04/06/16 15:15 05/06/16 15:14 04/23/16 08:46 17 GM Bisacodyl (Dulcolax Tab) 5 mg DAILY PRN PO 04/06/16 15:15 05/06/16 15:14 Furosemide (Lasix tab) 40 mg BID17 PO 04/08/16 17:00 05/08/16 16:59 04/23/16 16:58 40 MG Sertraline HCl (Zoloft Tab) 100 mg QAM PO 04/10/16 08:00 05/10/16 07:59 04/23/16 08:45 100 MG Warfarin Sodium (Coumadin Tab) 3 mg DAILY@16 PO 04/15/16 16:00 05/15/16 15:59 04/23/16 16:57 3 MG Enteral Nutritional Formula (Arginaid Extra) 1 box BID PO 04/16/16 20:00 05/16/16 19:59 04/23/16 09:00 1 BOX Al Hydroxide/Mg Hydroxide (Maalox Susp) 30 ml Q6H PRN PO 04/16/16 17:00 05/16/16 16:59 04/16/16 21:10 30 ML Senna/Docusate Sodium (Senokot S Tab) 1 tab QAM PO 04/17/16 08:00 05/17/16 07:59 04/23/16 08:44 1 TAB Miconazole Nitrate (Desenex Powder) 1 appln BID EXT 04/17/16 20:00 05/17/16 19:59 04/23/16 09:00 1 APPLN Lidocaine (Lidoderm Patch 5%) 1 patch QAM TD 04/20/16 08:00 05/20/16 07:59 04/23/16 08:46 1 PATCH Miscellaneous (Remove Lidoderm Patch) 1 ea DAILY@21 N/A 04/19/16 21:00 05/19/16 20:59 04/22/16 20:53 1 EA Heparin Sodium (Porcine) (Heparin 10 Unit/ ml 5 ml Flush) 5 ml PRN PRN FLUSH 04/19/16 20:45 05/19/16 20:44 04/23/16 05:34 5 ML Objective Vital Signs Date Time Temp Pulse Resp B/P Pulse Ox O2 Delivery O2 Flow Rate FiO2 04/23/16 15:06 37.1 59 18 110/63 97 Trach Collar 10.0 04/23/16 09:00 97 Trach Collar 10.0 04/23/16 08:09 36.8 56 15 129/67 97 Trach Collar 10.0 04/23/16 00:01 36.4 60 18 106/63 95 Trach Collar Physical Exam General Appearance: WD/WN, no apparent distress, + obese Eyes: normal inspection, sclerae normal ENT: normal ENT inspection, pharynx normal Neck: supple, no adenopathy, thyroid normal, trachea midline Respiratory/Chest: chest non-tender, lungs clear, normal breath sounds, no respiratory distress (Doing good) Cardiovascular: regular rate, rhythm, no gallop, no murmur Abdomen: normal bowel sounds, non tender, soft, no organomegaly Extremities: non-tender, no calf tenderness, + inflammation, + swelling Neurologic/Psychiatric: alert, oriented x 3 Skin: normal color, no rash, + pertinent finding (Improving erythema) Lymphatic: no adenopathy Laboratory Results Last 24 Hours Test 04/23/16 05:25 Prothrombin Time 18.9 SECONDS Prothromb Time International Ratio 1.7 Assessment and Plan 60-year-old male with longstanding respiratory failure now with open wound with cellulitis involving right buttock and thigh with cultures positive for resistant Pseudomonas as well as strep and staph species. Patient has received appropriate course for cellulitis, now to be followed off of antibiotics.
[2016-04-23] MEDS: TAMSULOSIN HCL 0.4 MG CAP PO SCH (21:18)
[2016-04-23] MEDS: ATORVASTATIN 10 MG TAB PO SCH (21:18)
--- NOTE | 2016-04-23 22:17 | Progress Note ---
Internal Med Progress Note Date of Service: Apr 23, 2016. Provider Documentation: SUBJECTIVE: offers no complain pt is counselled over and over again to be compliant with Bipap at night has trach collar OBJECTIVE: Vital Signs-as noted below Exam: General- morbidly obese, no distress, comfortable Head- atraumatic Eyes- PERRL, EOMI, anicteric ENT- trach collar present Lungs-Coarse breath sound Heart- regular rhythm; no murmur, S1/S2 present Abdomen- normal bowel sounds, soft, obesity Extremities- severe bilateral lymphedema with venous stasis changes , Neuro- no focal neurological deficit alert, oriented, PERRL, EOMI Lab data as noted below. ASSESSMENT & PLAN: Acute on chronic hypoxic respiratory failure - obesity hypoventilation s/p tracheostomy Pulmonology consulted started pt on Pulmozyme recommend to continue Bipap tolerating bipap at night, continue trach care repeat Cxray today : 1. Persistent left basilar opacity may reflect consolidation or atelectasis and small bilateral pleural effusions. 2. Pulmonary vascular congestion with possible mild pulmonary edema. CELLULITIS /OPEN WOUND ON RT LOWER LEG/LEFT POSTERIOR THIGH REGION/BUTTOCKS wound culture and gram stain -growing pseudomonas /staph /gram positive cocci / gram positive bacilli - ID on board afebrile vancomycin D/endy on Zosyn DEPRESSION Psych was consulted, denies of any depressive symptom Zoloft Increased to 50mg PO daily periodic monitoring of EKG for Qtc prolongation -stable Metabolic encephalopathy , Resolved due to hypercapnia /respiratory failure -CT head negative Urinary retention - Right renal mass seen on CT February; on chronic indwelling Fitch - Follows with Dr. Persaud as an outpatient Idiopathic cardiomyopathy/with CHF chronic diastolic dysfunction Ejection Fraction 45-50% no signs of overt failure cont Lasix to PO 40 mg BID Hx Atrial flutter with RVR and Sick sinus syndrome s/p dual chamber pacemaker - rate is controlled - Continue amiodarone and metoprolol continue Coumadin 3mg follow PT/INR PRESSURE ULCER : - Morbid obesity/bed bound -has multiple skin break down -pt has been refusing to be turned by nursing to provide skin care - wound care consulted multiple wounds on buttock and leg area noted , dressing applied with Optifoam Hypothyroidism - Continue levothyroxine Chronic normocytic anemia (anemia of chronic disease) - stable - monitor CBC VTE Prophylaxis - on warfarin GI Prophylaxis - Pantoprazole 40 mg Code - Full no cardioversion Disposition to be determined waiting for a bed in a vent facility or LTAC thru [facility]. 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
[2016-04-24] MEDS: LEVOTHYROXINE 100 MCG TAB PO SCH (06:32)
[2016-04-24] MEDS: IPRATROPIUM BROMIDE HFA INHALER INH SCH ×4 (06:34→18:28)
[2016-04-24] MEDS: ALBUTEROL HFA 8 GM INHALER INH SCH ×4 (06:35→18:28)
[2016-04-24] MEDS: METOPROLOL SUCC 25MG EXT REL TAB PO SCH (08:19)
[2016-04-24] MEDS: LIDODERM (LIDOCAINE) PATCH 5% TD SCH (08:19)
[2016-04-24] MEDS: DOCUSATE SODIUM/SENNA 50/8.6MG TAB PO SCH (08:20)
[2016-04-24] MEDS: CEROVITE ADV FORMULA TAB PO SCH (08:20)
[2016-04-24] MEDS: AMIODARONE 200 MG TAB PO SCH (08:20)
[2016-04-24] MEDS: POTASSIUM CHLORIDE PWD 20 MEQ PACK PO SCH ×2 (08:21→20:43)
[2016-04-24] MEDS: SERTRALINE HCL 100 MG TAB PO SCH (08:21)
[2016-04-24] MEDS: FUROSEMIDE 40 MG TAB PO SCH ×2 (08:21→16:27)
[2016-04-24] MEDS: ARGININE EXTRA NUTRITION DRINK 1 BOX PO SCH ×2 (08:21→20:43)
[2016-04-24] MEDS: POLYETHYLENE (MIRALAX) 17 GM PACK PO SCH (08:21)
[2016-04-24] MEDS: PANTOprazole SOD 40 MG TAB PO SCH (08:21)
[2016-04-24] MEDS: MICONAZOLE NITRATE POWDER 43 GM EXT SCH ×2 (08:22→20:42)
[2016-04-24 08:25] VITALS: BP 108/64; PULSE 59; TEMP 36.6; O2SAT 96
[2016-04-24 08:30] VITALS: O2SAT 95
[2016-04-24 09:14] LABS: INR 1.6 (0.9-1.1); PROTHROMBIN TIME (PATIENT) 17.6 SECONDS (9.0-12.0)
[2016-04-24 15:41] VITALS: BP 113/67; PULSE 60; TEMP 36.9; O2SAT 94
[2016-04-24] MEDS: WARFARIN SOD 5 MG TAB PO SCH (16:27)
--- NOTE | 2016-04-24 18:03 | Progress Note ---
Internal Med Progress Note Date of Service: Apr 24, 2016. Provider Documentation: SUBJECTIVE: sitting up watching TV on trach collar offers no complain, asking when he can be discharged still waiting for placement at LTAC OBJECTIVE: Vital Signs-as noted below Exam: General- morbidly obese, no distress, comfortable Head- atraumatic Eyes- PERRL, EOMI, anicteric ENT- trach collar present Lungs-Coarse breath sound Heart- regular rhythm; no murmur, S1/S2 present Abdomen- normal bowel sounds, soft, obesity Extremities- severe bilateral lymphedema with venous stasis changes , Neuro- no focal neurological deficit alert, oriented, PERRL, EOMI Lab data as noted below. ASSESSMENT & PLAN: Acute on chronic hypoxic respiratory failure - obesity hypoventilation s/p tracheostomy Pulmonology consulted started pt on Pulmozyme recommend to continue Bipap tolerating bipap at night, continue trach care repeat Cxray today : 1. Persistent left basilar opacity may reflect consolidation or atelectasis and small bilateral pleural effusions. 2. Pulmonary vascular congestion with possible mild pulmonary edema. CELLULITIS /OPEN WOUND ON RT LOWER LEG/LEFT POSTERIOR THIGH REGION/BUTTOCKS wound culture and gram stain -growing pseudomonas /staph /gram positive cocci / gram positive bacilli - ID on board afebrile vancomycin D/endy on Zosyn DEPRESSION Psych was consulted, denies of any depressive symptom Zoloft Increased to 50mg PO daily periodic monitoring of EKG for Qtc prolongation -stable Metabolic encephalopathy , Resolved due to hypercapnia /respiratory failure -CT head negative Urinary retention - Right renal mass seen on CT February; on chronic indwelling Fitch - Follows with Dr. Persaud as an outpatient Idiopathic cardiomyopathy/with CHF chronic diastolic dysfunction Ejection Fraction 45-50% no signs of overt failure cont Lasix to PO 40 mg BID Hx Atrial flutter with RVR and Sick sinus syndrome s/p dual chamber pacemaker - rate is controlled - Continue amiodarone and metoprolol continue Coumadin 3mg follow PT/INR PRESSURE ULCER : - Morbid obesity/bed bound -has multiple skin break down -pt has been refusing to be turned by nursing to provide skin care - wound care consulted multiple wounds on buttock and leg area noted , dressing applied with Optifoam Hypothyroidism - Continue levothyroxine Chronic normocytic anemia (anemia of chronic disease) - stable - monitor CBC VTE Prophylaxis - on warfarin GI Prophylaxis - Pantoprazole 40 mg Code - Full no cardioversion Disposition to be determined waiting for a bed in a vent facility or LTAC thru [facility]. 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
[2016-04-24] MEDS: TAMSULOSIN HCL 0.4 MG CAP PO SCH (20:44)
[2016-04-24] MEDS: ATORVASTATIN 10 MG TAB PO SCH (20:44)
[2016-04-24 22:41] VITALS: PULSE 60; O2SAT 99
[2016-04-24 22:55] VITALS: BP 143/74; PULSE 60; TEMP 37.1; O2SAT 98
[2016-04-25 05:54] LABS: INR 1.7 (0.9-1.1); PROTHROMBIN TIME (PATIENT) 18.2 SECONDS (9.0-12.0)
[2016-04-25] MEDS: IPRATROPIUM BROMIDE HFA INHALER INH SCH ×4 (06:01→17:46)
[2016-04-25] MEDS: ALBUTEROL HFA 8 GM INHALER INH SCH ×4 (06:01→17:46)
[2016-04-25] MEDS: LEVOTHYROXINE 100 MCG TAB PO SCH (06:02)
[2016-04-25 08:28] VITALS: BP_SYST 104; BP_SYST 122; BP_DIAS 64; PULSE 60; TEMP 36.8; O2SAT 98
[2016-04-25] MEDS: FUROSEMIDE 40 MG TAB PO SCH ×2 (08:39→17:45)
[2016-04-25] MEDS: POTASSIUM CHLORIDE PWD 20 MEQ PACK PO SCH ×2 (08:39→20:17)
[2016-04-25] MEDS: LIDODERM (LIDOCAINE) PATCH 5% TD SCH (08:39)
[2016-04-25] MEDS: PANTOprazole SOD 40 MG TAB PO SCH (08:40)
[2016-04-25] MEDS: DOCUSATE SODIUM/SENNA 50/8.6MG TAB PO SCH (08:40)
[2016-04-25] MEDS: SERTRALINE HCL 100 MG TAB PO SCH (08:40)
[2016-04-25] MEDS: POLYETHYLENE (MIRALAX) 17 GM PACK PO SCH (08:40)
[2016-04-25] MEDS: METOPROLOL SUCC 25MG EXT REL TAB PO SCH (08:40)
[2016-04-25] MEDS: AMIODARONE 200 MG TAB PO SCH (08:40)
[2016-04-25] MEDS: CEROVITE ADV FORMULA TAB PO SCH (08:40)
[2016-04-25] MEDS: MICONAZOLE NITRATE POWDER 43 GM EXT SCH ×2 (08:41→20:17)
[2016-04-25] MEDS: ARGININE EXTRA NUTRITION DRINK 1 BOX PO SCH ×2 (13:11→20:00)
[2016-04-25 15:09] VITALS: BP 122/66; PULSE 61; TEMP 36.8; O2SAT 95
[2016-04-25] MEDS: WARFARIN SOD 5 MG TAB PO SCH (16:01)
[2016-04-25 17:43] VITALS: BP 133/73; PULSE 61
--- NOTE | 2016-04-25 17:51 | Progress Note ---
Internal Med Progress Note Date of Service: Apr 25, 2016. Provider Documentation: SUBJECTIVE: offers no complain no fever or chills no SOB on trach collar , no respiratory distress OBJECTIVE: Vital Signs-as noted below Exam: General- morbidly obese, no distress, comfortable Head- atraumatic Eyes- PERRL, EOMI, anicteric ENT- trach collar present Lungs-Coarse breath sound Heart- regular rhythm; no murmur, S1/S2 present Abdomen- normal bowel sounds, soft, obesity Extremities- severe bilateral lymphedema with venous stasis changes , Neuro- no focal neurological deficit alert, oriented, PERRL, EOMI Lab data as noted below. ASSESSMENT & PLAN: Acute on chronic hypoxic respiratory failure - obesity hypoventilation s/p tracheostomy Pulmonology consulted started pt on Pulmozyme recommend to continue Bipap tolerating bipap at night, continue trach care repeat Cxray today : 1. Persistent left basilar opacity may reflect consolidation or atelectasis and small bilateral pleural effusions. 2. Pulmonary vascular congestion with possible mild pulmonary edema. CELLULITIS /OPEN WOUND ON RT LOWER LEG/LEFT POSTERIOR THIGH REGION/BUTTOCKS wound culture and gram stain -growing pseudomonas /staph /gram positive cocci / gram positive bacilli - ID on board afebrile vancomycin D/endy on Zosyn DEPRESSION Psych was consulted, denies of any depressive symptom Zoloft Increased to 50mg PO daily periodic monitoring of EKG for Qtc prolongation -stable Metabolic encephalopathy , Resolved due to hypercapnia /respiratory failure -CT head negative Urinary retention - Right renal mass seen on CT February; on chronic indwelling Fitch - Follows with Dr. Persaud as an outpatient Idiopathic cardiomyopathy/with CHF chronic diastolic dysfunction Ejection Fraction 45-50% no signs of overt failure cont Lasix to PO 40 mg BID Hx Atrial flutter with RVR and Sick sinus syndrome s/p dual chamber pacemaker - rate is controlled - Continue amiodarone and metoprolol continue Coumadin 3mg follow PT/INR PRESSURE ULCER : - Morbid obesity/bed bound -has multiple skin break down -pt has been refusing to be turned by nursing to provide skin care - wound care consulted multiple wounds on buttock and leg area noted , dressing applied with Optifoam Hypothyroidism - Continue levothyroxine Chronic normocytic anemia (anemia of chronic disease) - stable - monitor CBC VTE Prophylaxis - on warfarin GI Prophylaxis - Pantoprazole 40 mg Code - Full no cardioversion Disposition to be determined waiting for a bed in a vent facility or LTAC thru [facility]. 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
[2016-04-25] MEDS: TAMSULOSIN HCL 0.4 MG CAP PO SCH (20:18)
[2016-04-25] MEDS: ATORVASTATIN 10 MG TAB PO SCH (20:19)
[2016-04-25 23:41] VITALS: BP 117/68; PULSE 60; TEMP 36.6; O2SAT 94
[2016-04-26 05:59] LABS: INR 1.8 (0.9-1.1); PROTHROMBIN TIME (PATIENT) 20.3 SECONDS (9.0-12.0)
[2016-04-26] MEDS: LEVOTHYROXINE 100 MCG TAB PO SCH (06:31)
[2016-04-26] MEDS: IPRATROPIUM BROMIDE HFA INHALER INH SCH ×5 (06:31→22:26)
[2016-04-26] MEDS: ALBUTEROL HFA 8 GM INHALER INH SCH ×5 (06:31→22:26)
[2016-04-26 07:43] VITALS: BP 139/70; PULSE 57; TEMP 36.7; O2SAT 91
[2016-04-26] MEDS: MICONAZOLE NITRATE POWDER 43 GM EXT SCH ×2 (08:42→20:39)
[2016-04-26] MEDS: ARGININE EXTRA NUTRITION DRINK 1 BOX PO SCH (08:43)
[2016-04-26] MEDS: DOCUSATE SODIUM/SENNA 50/8.6MG TAB PO SCH (08:43)
[2016-04-26] MEDS: AMIODARONE 200 MG TAB PO SCH (08:43)
[2016-04-26] MEDS: METOPROLOL SUCC 25MG EXT REL TAB PO SCH (08:43)
[2016-04-26] MEDS: SERTRALINE HCL 100 MG TAB PO SCH (08:43)
[2016-04-26] MEDS: CEROVITE ADV FORMULA TAB PO SCH (08:43)
[2016-04-26] MEDS: POTASSIUM CHLORIDE PWD 20 MEQ PACK PO SCH ×2 (08:44→20:39)
[2016-04-26] MEDS: PANTOprazole SOD 40 MG TAB PO SCH (08:44)
[2016-04-26] MEDS: POLYETHYLENE (MIRALAX) 17 GM PACK PO SCH (08:44)
[2016-04-26] MEDS: FUROSEMIDE 40 MG TAB PO SCH ×2 (08:44→16:33)
[2016-04-26] MEDS: LIDODERM (LIDOCAINE) PATCH 5% TD SCH (08:44)
[2016-04-26 09:06] VITALS: PULSE 75; O2SAT 93
[2016-04-26 15:39] VITALS: BP 136/67; PULSE 60; TEMP 36.7; O2SAT 94
[2016-04-26] MEDS: WARFARIN SOD 5 MG TAB PO SCH (16:33)
--- NOTE | 2016-04-26 18:48 | Progress Note ---
Internal Med Progress Note Date of Service: Apr 26, 2016. Provider Documentation: SUBJECTIVE: remains the same , no complain of SOB no fever or chills no cough remains on trach collar OBJECTIVE: Vital Signs-as noted below Exam: General- morbidly obese, no distress, comfortable Head- atraumatic Eyes- PERRL, EOMI, anicteric ENT- trach collar present Lungs-Coarse breath sound Heart- regular rhythm; no murmur, S1/S2 present Abdomen- normal bowel sounds, soft, obesity Extremities- severe bilateral lymphedema with venous stasis changes , Neuro- no focal neurological deficit alert, oriented, PERRL, EOMI Lab data as noted below. ASSESSMENT & PLAN: Acute on chronic hypoxic respiratory failure - obesity hypoventilation s/p tracheostomy Pulmonology consulted started pt on Pulmozyme recommend to continue Bipap tolerating bipap at night, continue trach care repeat Cxray today : 1. Persistent left basilar opacity may reflect consolidation or atelectasis and small bilateral pleural effusions. 2. Pulmonary vascular congestion with possible mild pulmonary edema. CELLULITIS /OPEN WOUND ON RT LOWER LEG/LEFT POSTERIOR THIGH REGION/BUTTOCKS wound culture and gram stain -growing pseudomonas /staph /gram positive cocci / gram positive bacilli - ID on board afebrile vancomycin D/endy on Zosyn DEPRESSION Psych was consulted, denies of any depressive symptom Zoloft Increased to 50mg PO daily periodic monitoring of EKG for Qtc prolongation -stable Metabolic encephalopathy , Resolved due to hypercapnia /respiratory failure -CT head negative Urinary retention - Right renal mass seen on CT February; on chronic indwelling Fitch - Follows with Dr. Persaud as an outpatient Idiopathic cardiomyopathy/with CHF chronic diastolic dysfunction Ejection Fraction 45-50% no signs of overt failure cont Lasix to PO 40 mg BID Hx Atrial flutter with RVR and Sick sinus syndrome s/p dual chamber pacemaker - rate is controlled - Continue amiodarone and metoprolol continue Coumadin 3mg follow PT/INR PRESSURE ULCER : - Morbid obesity/bed bound -has multiple skin break down -pt has been refusing to be turned by nursing to provide skin care - wound care consulted multiple wounds on buttock and leg area noted , dressing applied with Optifoam Hypothyroidism - Continue levothyroxine Chronic normocytic anemia (anemia of chronic disease) - stable - monitor CBC VTE Prophylaxis - on warfarin GI Prophylaxis - Pantoprazole 40 mg Code - Full no cardioversion Disposition to be determined waiting for a bed in a vent facility or LTAC thru [facility]. 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
[2016-04-26] MEDS: ATORVASTATIN 10 MG TAB PO SCH (20:39)
[2016-04-26] MEDS: TAMSULOSIN HCL 0.4 MG CAP PO SCH (20:39)
[2016-04-26 22:30] VITALS: PULSE 69; O2SAT 99
[2016-04-26 23:53] VITALS: BP 150/71; PULSE 65; TEMP 36.8; O2SAT 99
[2016-04-27 03:11] VITALS: PULSE 59; O2SAT 98
[2016-04-27] MEDS: IPRATROPIUM BROMIDE HFA INHALER INH SCH ×3 (06:02→18:18)
[2016-04-27] MEDS: ALBUTEROL HFA 8 GM INHALER INH SCH ×3 (06:02→18:19)
[2016-04-27] MEDS: LEVOTHYROXINE 100 MCG TAB PO SCH (06:02)
[2016-04-27 08:00] VITALS: O2SAT 98
[2016-04-27] MEDS: LIDODERM (LIDOCAINE) PATCH 5% TD SCH (08:00)
[2016-04-27] MEDS: POLYETHYLENE (MIRALAX) 17 GM PACK PO SCH (08:00)
[2016-04-27] MEDS ORDERED: ARGININE EXTRA NUTRITION DRINK 1 BOX PO SCH (08:00)
[2016-04-27] MEDS: AMIODARONE 200 MG TAB PO SCH (08:29)
[2016-04-27] MEDS: POTASSIUM CHLORIDE PWD 20 MEQ PACK PO SCH ×2 (08:29→20:47)
[2016-04-27] MEDS: ARGININE EXTRA NUTRITION DRINK 1 BOX PO SCH (08:30)
[2016-04-27] MEDS: MICONAZOLE NITRATE POWDER 43 GM EXT SCH ×2 (08:30→20:47)
[2016-04-27 08:31] VITALS: BP 138/68; PULSE 60; TEMP 36.9; O2SAT 97
[2016-04-27] MEDS: CEROVITE ADV FORMULA TAB PO SCH (08:31)
[2016-04-27] MEDS: METOPROLOL SUCC 25MG EXT REL TAB PO SCH (08:31)
[2016-04-27] MEDS: DOCUSATE SODIUM/SENNA 50/8.6MG TAB PO SCH (08:31)
[2016-04-27] MEDS: PANTOprazole SOD 40 MG TAB PO SCH (08:31)
[2016-04-27] MEDS: SERTRALINE HCL 100 MG TAB PO SCH (08:32)
[2016-04-27] MEDS: FUROSEMIDE 40 MG TAB PO SCH ×2 (09:00→16:52)
[2016-04-27 15:12] VITALS: BP 127/70; PULSE 60; TEMP 36.8; O2SAT 93
[2016-04-27 16:00] VITALS: O2SAT 98
[2016-04-27] MEDS: WARFARIN SOD 5 MG TAB PO SCH (16:52)
--- NOTE | 2016-04-27 19:17 | Progress Note ---
Subjective Date of Service: Apr 27, 2016. Subjective Pt evaluation today including: conversation w/ patient, physical exam, lab review, review of studies, review of inpatient medication list Saw/examined the patient in room 421 doing well would like a lidocaine patch on right knee otherwise stable, no other issues to note Problem List Medical Problems: (1) Acute renal failure Status: Acute (2) Anemia Status: Acute (3) Anticoagulated on warfarin Status: Acute (4) Atrial fibrillation with RVR Status: Acute (5) Bradycardia Status: Acute (6) Bradycardia Status: Acute (7) Bradycardia Status: Acute (8) Hypotension Status: Acute (9) Hypoxia Status: Acute (10) Hypoxia Status: Acute (11) Morbid obesity Status: Acute (12) Pneumonia Status: Chronic (13) Pulmonary infiltrate in left lung on chest x-ray Status: Acute (14) Respiratory failure with hypoxia Status: Acute (15) Sepsis Status: Chronic (16) SOB (shortness of breath) Status: Acute (17) SVT (supraventricular tachycardia) Status: Acute (18) Weakness Status: Acute Review of Systems Constitutional: No chills, No fever Respiratory: + sputum (+trach), No cough, No shortness of breath Cardiac: + edema, No chest pain, No palpitations Abdomen: No diarrhea, No nausea, No pain, No vomiting Medications Current Inpatient Medications Medications (Trade) Dose Ordered Sig/Kelly Route Start Time Stop Time Status Last Admin Dose Admin Acetaminophen/ Empty Bag (Ofirmev IV/ Empty Iv Bag 100ml) 65 ml @ 260 mls/hr Q6H PRN IV 03/29/16 07:30 04/28/16 07:29 Pantoprazole Sodium (Protonix Tab) 40 mg QAM PO 04/01/16 09:00 05/01/16 08:59 04/27/16 08:31 40 MG Atorvastatin Calcium (Lipitor Tab) 10 mg HS PO 03/31/16 21:00 04/30/16 20:59 04/26/16 20:39 10 MG Levothyroxine Sodium (Synthroid Tab) 100 mcg DAILYBB PO 04/01/16 06:00 05/01/16 05:59 04/27/16 06:02 100 MCG Multivitamins/ Minerals (Multivitamin W/ Minerals Tab) 1 tab DAILY PO 04/01/16 09:00 05/01/16 08:59 04/27/16 08:31 1 TAB Tamsulosin HCl (Flomax Cap) 0.4 mg HS PO 03/31/16 21:00 04/30/16 20:59 04/26/16 20:39 0.4 MG Amiodarone HCl (Cordarone Tab) 100 mg QAM PO 04/01/16 09:00 05/01/16 08:59 04/27/16 08:29 100 MG Metoprolol Succinate (Toprol Xl Tab) 25 mg QAM PO 04/01/16 09:00 05/01/16 08:59 04/27/16 08:31 25 MG Potassium Chloride (Klor-Con Pwd) 20 meq BID PO 04/01/16 20:00 05/01/16 20:59 04/27/16 08:29 20 MEQ Tramadol HCl (Ultram Tab) 50 mg Q6H PRN PO 04/03/16 02:15 05/03/16 02:14 04/21/16 16:14 50 MG Heparin Sodium (Porcine) (Heparin 10 Unit/ ml 5 ml Flush) 5 ml PRN PRN FLUSH 04/04/16 08:30 05/04/16 08:29 04/19/16 20:36 5 ML Ipratropium [place] (Atrovent Hfa Inhaler) 4 puffs Q6 INH 04/06/16 18:00 05/06/16 17:59 04/27/16 18:18 4 PUFFS Albuterol (Ventolin Hfa Inhaler) 4 puffs Q6 INH 04/06/16 18:00 05/06/16 17:59 04/27/16 18:19 4 PUFFS Polyethylene (Miralax Powder Packet) 17 gm DAILY PO 04/06/16 15:15 05/06/16 15:14 04/25/16 08:40 17 GM Bisacodyl (Dulcolax Tab) 5 mg DAILY PRN PO 04/06/16 15:15 05/06/16 15:14 Furosemide (Lasix tab) 40 mg BID17 PO 04/08/16 17:00 05/08/16 16:59 04/27/16 16:52 40 MG Sertraline HCl (Zoloft Tab) 100 mg QAM PO 04/10/16 08:00 05/10/16 07:59 04/27/16 08:32 100 MG Al Hydroxide/Mg Hydroxide (Maalox Susp) 30 ml Q6H PRN PO 04/16/16 17:00 05/16/16 16:59 04/16/16 21:10 30 ML Senna/Docusate Sodium (Senokot S Tab) 1 tab QAM PO 04/17/16 08:00 05/17/16 07:59 04/27/16 08:31 1 TAB Miconazole Nitrate (Desenex Powder) 1 appln BID EXT 04/17/16 20:00 05/17/16 19:59 04/27/16 08:30 1 APPLN Lidocaine (Lidoderm Patch 5%) 1 patch QAM TD 04/20/16 08:00 05/20/16 07:59 04/27/16 08:00 1 PATCH Miscellaneous (Remove Lidoderm Patch) 1 ea DAILY@21 N/A 04/19/16 21:00 05/19/16 20:59 04/26/16 20:39 1 EA Heparin Sodium (Porcine) (Heparin 10 Unit/ ml 5 ml Flush) 5 ml PRN PRN FLUSH 04/19/16 20:45 05/19/16 20:44 04/27/16 11:08 5 ML Warfarin Sodium (Coumadin Tab) 5 mg DAILY@16 PO 04/24/16 16:00 05/24/16 15:59 04/27/16 16:52 5 MG Enteral Nutritional Formula (Arginaid Extra) 1 box DAILY PO 04/27/16 08:00 05/27/16 07:59 04/27/16 08:30 1 BOX Objective Vital Signs Date Time Temp Pulse Resp B/P Pulse Ox O2 Delivery O2 Flow Rate FiO2 04/27/16 16:00 98 Trach Collar 10.0 40 04/27/16 15:12 36.8 60 28 127/70 93 Room Air 04/27/16 08:31 36.9 60 16 138/68 97 Trach Collar 10.0 04/27/16 08:00 98 Trach Collar 10.0 40 04/27/16 03:11 59 98 40 04/27/16 00:00 Trach Collar 10.0 40 04/26/16 23:53 36.8 65 20 150/71 99 Room Air 04/26/16 22:30 69 99 40 04/26/16 20:00 Trach Collar 10.0 40 Physical Exam General Appearance: no apparent distress, + obese Neck: + pertinent finding (+trach) Respiratory/Chest: lungs clear, normal breath sounds, no respiratory distress, no accessory muscle use Cardiovascular: regular rate, rhythm, no murmur Abdomen: soft Extremities: + pertinent finding (chronic lymphedema) Neurologic/Psychiatric: no motor/sensory deficits, alert, normal mood/affect Assessment and Plan This is a 60 year old male with morbid obesity with chronic respiratory failure secondary to obesity hypoventilation s/p tracheostomy, hx. of DVT on anticoagulation, sick sinus syndrome s/p PPM, chronic lymphedema presented with acute respiratory failure Acute on Chronic Hypoxic Respiratory Failure, resolved * patient has obesity hypoventilation, s/p tracheostomy * patient is back to baseline with his breathing status * appreciate pulmonology input * continue inhalers, Pulmozyme, trach care * plan for d/c to LTAC Chronic Lymphedema with Ulceration at Right Leg as well as Left Thigh * multiple organisms from wound culture, including pseudomonas * Patient was started on Vanc/Zosyn, then switched to Zosyn - now off of antibiotics * Currently afebrile, no sign of active/acute infection Depression * Zoloft has been increased during this admission * Appreciate psych input * Monitor EKG periodically for QT prolongation Metabolic encephalopathy, resolved * due to hypercapnia/respiratory failure as well as infection * CT head negative Urinary Retention * Chronic Indwelling Fitch * follows with outpatient urology Idiopathic cardiomyopathy/chronic diastolic CHF * euvolemic * continue Lasix 40mg BID History of Atrial Flutter with RVR Sick Sinus Syndrome s/p PPM * rate is controlled * asymptomatic * continue cardiac medications, amiodarone and metoprolol * continue Coumadin * recheck INR in AM Hypothyroidism * Continue levothyroxine DVT ppx * on warfarin GI ppx * Protonix 40 mg FULL NO CARDIOVERSION
[2016-04-27] MEDS: TAMSULOSIN HCL 0.4 MG CAP PO SCH (20:48)
[2016-04-27] MEDS: ATORVASTATIN 10 MG TAB PO SCH (20:48)
[2016-04-27 23:18] VITALS: BP 140/78; PULSE 61; TEMP 36.6; O2SAT 92
[2016-04-28] MEDS: IPRATROPIUM BROMIDE HFA INHALER INH SCH ×5 (01:00→23:34)
[2016-04-28] MEDS: ALBUTEROL HFA 8 GM INHALER INH SCH ×5 (01:00→23:34)
[2016-04-28] MEDS: LEVOTHYROXINE 100 MCG TAB PO SCH (05:41)
[2016-04-28 06:24] LABS: HEMATOCRIT 27.1 % (42-52); MEAN CORPUSCULAR HEMOGLOBIN 27.3 pg (25-34); MEAN CORPUSCULAR HGB CONC 32.1 g/dl (32-36); MEAN PLATELET VOLUME 8.3 fL (7.4-10.4); PLATELET COUNT 311 K/uL (130-400); RED BLOOD COUNT 3.19 M/uL (4.7-6.1); WHITE BLOOD COUNT 5.64 K/uL (4.8-10.8)
[2016-04-28 06:40] LABS: INR 1.8 (0.9-1.1); PROTHROMBIN TIME (PATIENT) 20.1 SECONDS (9.0-12.0)
[2016-04-28 06:55] LABS: BUN/CREATININE RATIO 22.9 (10-20); CALCIUM 8.9 mg/dl (8.5-10.1); CREATININE 0.94 mg/dl (0.60-1.40); POTASSIUM 3.8 mmol/L (3.5-5.1)
[2016-04-28 07:48] VITALS: BP 149/73; PULSE 59; TEMP 36.6; O2SAT 96
[2016-04-28] MEDS: METOPROLOL SUCC 25MG EXT REL TAB PO SCH (08:51)
[2016-04-28] MEDS: AMIODARONE 200 MG TAB PO SCH (08:51)
[2016-04-28] MEDS: CEROVITE ADV FORMULA TAB PO SCH (08:51)
[2016-04-28] MEDS: DOCUSATE SODIUM/SENNA 50/8.6MG TAB PO SCH (08:51)
[2016-04-28] MEDS: SERTRALINE HCL 100 MG TAB PO SCH (08:51)
[2016-04-28] MEDS: FUROSEMIDE 40 MG TAB PO SCH ×2 (08:52→16:42)
[2016-04-28] MEDS: POTASSIUM CHLORIDE PWD 20 MEQ PACK PO SCH ×2 (08:52→20:11)
[2016-04-28] MEDS: POLYETHYLENE (MIRALAX) 17 GM PACK PO SCH (08:52)
[2016-04-28] MEDS: PANTOprazole SOD 40 MG TAB PO SCH (08:52)
[2016-04-28] MEDS: ARGININE EXTRA NUTRITION DRINK 1 BOX PO SCH (08:53)
[2016-04-28] MEDS: LIDODERM (LIDOCAINE) PATCH 5% TD SCH ×2 (08:53→08:54)
[2016-04-28] MEDS: MICONAZOLE NITRATE POWDER 43 GM EXT SCH ×2 (08:54→20:08)
[2016-04-28 15:16] VITALS: BP 125/69; PULSE 53; TEMP 37; O2SAT 97
[2016-04-28 16:00] VITALS: O2SAT 97
[2016-04-28] MEDS: WARFARIN SOD 5 MG TAB PO SCH (16:42)
--- NOTE | 2016-04-28 17:49 | Progress Note ---
Subjective Date of Service: Apr 28, 2016. Subjective Pt evaluation today including: conversation w/ patient, physical exam, lab review, review of studies, review of inpatient medication list Saw/examined the patient in room 421 Offers no complaints Second lidocaine patch added; pain controlled Problem List Medical Problems: (1) Acute renal failure Status: Acute (2) Anemia Status: Acute (3) Anticoagulated on warfarin Status: Acute (4) Atrial fibrillation with RVR Status: Acute (5) Bradycardia Status: Acute (6) Bradycardia Status: Acute (7) Bradycardia Status: Acute (8) Hypotension Status: Acute (9) Hypoxia Status: Acute (10) Hypoxia Status: Acute (11) Morbid obesity Status: Acute (12) Pneumonia Status: Chronic (13) Pulmonary infiltrate in left lung on chest x-ray Status: Acute (14) Respiratory failure with hypoxia Status: Acute (15) Sepsis Status: Chronic (16) SOB (shortness of breath) Status: Acute (17) SVT (supraventricular tachycardia) Status: Acute (18) Weakness Status: Acute Review of Systems Constitutional: No chills, No fever Respiratory: No cough, No dyspnea on exertion, No shortness of breath (at baseline), No sputum Cardiac: No chest pain Musculoskeletal: + joint pain (controlled with meds) Medications Current Inpatient Medications Medications (Trade) Dose Ordered Sig/Kelly Route Start Time Stop Time Status Last Admin Dose Admin Pantoprazole Sodium (Protonix Tab) 40 mg QAM PO 04/01/16 09:00 05/01/16 08:59 04/28/16 08:52 40 MG Atorvastatin Calcium (Lipitor Tab) 10 mg HS PO 03/31/16 21:00 04/30/16 20:59 04/27/16 20:48 10 MG Levothyroxine Sodium (Synthroid Tab) 100 mcg DAILYBB PO 04/01/16 06:00 05/01/16 05:59 04/28/16 05:41 100 MCG Multivitamins/ Minerals (Multivitamin W/ Minerals Tab) 1 tab DAILY PO 04/01/16 09:00 05/01/16 08:59 04/28/16 08:51 1 TAB Tamsulosin HCl (Flomax Cap) 0.4 mg HS PO 03/31/16 21:00 04/30/16 20:59 04/27/16 20:48 0.4 MG Amiodarone HCl (Cordarone Tab) 100 mg QAM PO 04/01/16 09:00 05/01/16 08:59 04/28/16 08:51 100 MG Metoprolol Succinate (Toprol Xl Tab) 25 mg QAM PO 04/01/16 09:00 05/01/16 08:59 04/28/16 08:51 25 MG Potassium Chloride (Klor-Con Pwd) 20 meq BID PO 04/01/16 20:00 05/01/16 20:59 04/28/16 08:52 20 MEQ Tramadol HCl (Ultram Tab) 50 mg Q6H PRN PO 04/03/16 02:15 05/03/16 02:14 04/21/16 16:14 50 MG Heparin Sodium (Porcine) (Heparin 10 Unit/ ml 5 ml Flush) 5 ml PRN PRN FLUSH 04/04/16 08:30 05/04/16 08:29 04/19/16 20:36 5 ML Ipratropium [place] (Atrovent Hfa Inhaler) 4 puffs Q6 INH 04/06/16 18:00 05/06/16 17:59 04/28/16 14:31 4 PUFFS Albuterol (Ventolin Hfa Inhaler) 4 puffs Q6 INH 04/06/16 18:00 05/06/16 17:59 04/28/16 14:32 4 PUFFS Polyethylene (Miralax Powder Packet) 17 gm DAILY PO 04/06/16 15:15 05/06/16 15:14 04/28/16 08:52 17 GM Bisacodyl (Dulcolax Tab) 5 mg DAILY PRN PO 04/06/16 15:15 05/06/16 15:14 Furosemide (Lasix tab) 40 mg BID17 PO 04/08/16 17:00 05/08/16 16:59 04/28/16 16:42 40 MG Sertraline HCl (Zoloft Tab) 100 mg QAM PO 04/10/16 08:00 05/10/16 07:59 04/28/16 08:51 100 MG Al Hydroxide/Mg Hydroxide (Maalox Susp) 30 ml Q6H PRN PO 04/16/16 17:00 05/16/16 16:59 04/16/16 21:10 30 ML Senna/Docusate Sodium (Senokot S Tab) 1 tab QAM PO 04/17/16 08:00 05/17/16 07:59 04/28/16 08:51 1 TAB Miconazole Nitrate (Desenex Powder) 1 appln BID EXT 04/17/16 20:00 05/17/16 19:59 04/28/16 08:54 1 APPLN Lidocaine (Lidoderm Patch 5%) 1 patch QAM TD 04/20/16 08:00 05/20/16 07:59 04/28/16 08:53 1 PATCH Miscellaneous (Remove Lidoderm Patch) 1 ea DAILY@21 N/A 04/19/16 21:00 05/19/16 20:59 04/27/16 20:48 1 EA Heparin Sodium (Porcine) (Heparin 10 Unit/ ml 5 ml Flush) 5 ml PRN PRN FLUSH 04/19/16 20:45 05/19/16 20:44 04/28/16 06:48 5 ML Warfarin Sodium (Coumadin Tab) 5 mg DAILY@16 PO 04/24/16 16:00 05/24/16 15:59 04/28/16 16:42 5 MG Enteral Nutritional Formula (Arginaid Extra) 1 box DAILY PO 04/27/16 08:00 05/27/16 07:59 04/28/16 08:53 1 BOX Lidocaine (Lidoderm Patch 5%) 1 patch QAM TD 04/28/16 08:00 05/28/16 07:59 04/28/16 08:54 1 PATCH Miscellaneous (Remove Lidoderm Patch) 1 ea DAILY@21 N/A 04/28/16 21:00 05/28/16 20:59 Objective Vital Signs Date Time Temp Pulse Resp B/P Pulse Ox O2 Delivery O2 Flow Rate FiO2 04/28/16 15:16 37.0 53 16 125/69 97 Trach Collar 04/28/16 09:00 Trach Collar 10.0 40 04/28/16 07:48 36.6 59 16 149/73 96 Trach Collar 04/28/16 00:00 Trach Collar 10.0 40 04/27/16 23:18 36.6 61 16 140/78 92 Trach Collar 04/27/16 20:00 Trach Collar 10.0 40 Physical Exam General Appearance: no apparent distress, + obese Neck: + pertinent finding (+trach) Respiratory/Chest: lungs clear, normal breath sounds, no respiratory distress, no accessory muscle use Cardiovascular: regular rate, rhythm Laboratory Results Last 24 Hours Test 04/28/16 05:40 White Blood Count 5.64 K/uL Red Blood Count 3.19 M/uL Hemoglobin 8.7 g/dL Hematocrit 27.1 % Mean Corpuscular Volume 85.0 fL Mean Corpuscular Hemoglobin 27.3 pg Mean Corpuscular Hemoglobin Concent 32.1 g/dl RDW Standard Deviation 52.1 fL RDW Coefficient of Variation 16.8 % Platelet Count 311 K/uL Mean Platelet Volume 8.3 fL Prothrombin Time 20.1 SECONDS Prothromb Time International Ratio 1.8 Sodium Level 141 mmol/L Potassium Level 3.8 mmol/L Chloride Level 102 mmol/L Carbon Dioxide Level 33 mmol/L Anion Gap 6.0 mmol/L Blood Urea Nitrogen 22 mg/dl Creatinine 0.94 mg/dl Est Creatinine Clear Calc Drug Dose 137.9 ml/min Estimated GFR () 102.4 Estimated GFR (Non- 88.4 BUN/Creatinine Ratio 22.9 Random Glucose 91 mg/dl Calcium Level 8.9 mg/dl Magnesium Level 2.0 mg/dl Assessment and Plan This is a 60 year old male with morbid obesity with chronic respiratory failure secondary to obesity hypoventilation s/p tracheostomy, hx. of DVT on anticoagulation, sick sinus syndrome s/p PPM, chronic lymphedema presented with acute respiratory failure Acute on Chronic Hypoxic Respiratory Failure, resolved 04/28 * back to baseline with breathing status * continue inhalers and trach care * plan for d/c to LTAC when approved 04/27 * patient has obesity hypoventilation, s/p tracheostomy * patient is back to baseline with his breathing status * appreciate pulmonology input * continue inhalers, Pulmozyme, trach care * plan for d/c to LTAC Chronic Lymphedema with Ulceration at Right Leg as well as Left Thigh * multiple organisms from wound culture, including pseudomonas * Patient was started on Vanc/Zosyn, then switched to Zosyn - now off of antibiotics * Currently afebrile, no sign of active/acute infection Depression * Zoloft has been increased during this admission * Appreciate psych input * Monitor EKG periodically for QT prolongation Metabolic encephalopathy, resolved * due to hypercapnia/respiratory failure as well as infection * CT head negative Urinary Retention * Chronic Indwelling Fitch * follows with outpatient urology Idiopathic cardiomyopathy/chronic diastolic CHF * euvolemic * continue Lasix 40mg BID History of Atrial Flutter with RVR Sick Sinus Syndrome s/p PPM * rate is controlled * asymptomatic * continue cardiac medications, amiodarone and metoprolol * continue Coumadin * recheck INR in AM Hypothyroidism * Continue levothyroxine DVT ppx * on warfarin GI ppx * Protonix 40 mg FULL NO CARDIOVERSION
[2016-04-28] MEDS: TRAMADOL HCL 50 MG TAB PO PRN (17:57)
[2016-04-28] MEDS: ATORVASTATIN 10 MG TAB PO SCH (21:32)
[2016-04-28] MEDS: TAMSULOSIN HCL 0.4 MG CAP PO SCH (21:32)
[2016-04-28 23:03] VITALS: BP 120/73; PULSE 60; TEMP 36.8; O2SAT 96
[2016-04-28 23:35] VITALS: O2SAT 98
[2016-04-29] MEDS: ALBUTEROL HFA 8 GM INHALER INH SCH ×3 (05:25→18:19)
[2016-04-29] MEDS: TRAMADOL HCL 50 MG TAB PO PRN ×2 (05:25→13:36)
[2016-04-29] MEDS: IPRATROPIUM BROMIDE HFA INHALER INH SCH ×3 (05:25→18:19)
[2016-04-29] MEDS: LEVOTHYROXINE 100 MCG TAB PO SCH (05:25)
[2016-04-29 06:45] LABS: INR 1.8 (0.9-1.1); PROTHROMBIN TIME (PATIENT) 19.6 SECONDS (9.0-12.0)
[2016-04-29 07:44] VITALS: BP 118/65; PULSE 59; TEMP 36.7; O2SAT 96
[2016-04-29] MEDS: SERTRALINE HCL 100 MG TAB PO SCH (08:59)
[2016-04-29] MEDS: CEROVITE ADV FORMULA TAB PO SCH (08:59)
[2016-04-29] MEDS: DOCUSATE SODIUM/SENNA 50/8.6MG TAB PO SCH (08:59)
[2016-04-29] MEDS: METOPROLOL SUCC 25MG EXT REL TAB PO SCH (09:00)
[2016-04-29] MEDS: PANTOprazole SOD 40 MG TAB PO SCH (09:00)
[2016-04-29] MEDS: LIDODERM (LIDOCAINE) PATCH 5% TD SCH ×2 (09:00)
[2016-04-29] MEDS: POTASSIUM CHLORIDE PWD 20 MEQ PACK PO SCH ×2 (09:01→20:21)
[2016-04-29] MEDS: POLYETHYLENE (MIRALAX) 17 GM PACK PO SCH (09:01)
[2016-04-29] MEDS: MICONAZOLE NITRATE POWDER 43 GM EXT SCH ×2 (09:02→20:21)
[2016-04-29] MEDS: AMIODARONE 200 MG TAB PO SCH (09:02)
[2016-04-29] MEDS: ARGININE EXTRA NUTRITION DRINK 1 BOX PO SCH (09:08)
[2016-04-29] MEDS: FUROSEMIDE 40 MG TAB PO SCH ×2 (10:27→16:10)
[2016-04-29] MEDS: WARFARIN SOD 5 MG TAB PO SCH (16:10)
[2016-04-29] MEDS: TAMSULOSIN HCL 0.4 MG CAP PO SCH (20:20)
[2016-04-29] MEDS: ATORVASTATIN 10 MG TAB PO SCH (20:21)
[2016-04-29 23:54] VITALS: BP 133/75; PULSE 60; TEMP 36.8; O2SAT 96
[2016-04-30 00:35] VITALS: PULSE 59; O2SAT 98
[2016-04-30 06:08] VITALS: PULSE 68; O2SAT 96
[2016-04-30] MEDS: ALBUTEROL HFA 8 GM INHALER INH SCH ×4 (06:21→18:09)
[2016-04-30] MEDS: LEVOTHYROXINE 100 MCG TAB PO SCH (06:21)
[2016-04-30] MEDS: IPRATROPIUM BROMIDE HFA INHALER INH SCH ×4 (06:21→18:09)
--- NOTE | 2016-04-30 07:27 | Progress Note ---
Subjective Date of Service: Apr 29, 2016. Subjective Pt evaluation today including: conversation w/ patient, physical exam, lab review, review of studies, review of inpatient medication list Saw/examined the patient in room 421 No complaints today Problem List Medical Problems: (1) Acute renal failure Status: Acute (2) Anemia Status: Acute (3) Anticoagulated on warfarin Status: Acute (4) Atrial fibrillation with RVR Status: Acute (5) Bradycardia Status: Acute (6) Bradycardia Status: Acute (7) Bradycardia Status: Acute (8) Hypotension Status: Acute (9) Hypoxia Status: Acute (10) Hypoxia Status: Acute (11) Morbid obesity Status: Acute (12) Pneumonia Status: Chronic (13) Pulmonary infiltrate in left lung on chest x-ray Status: Acute (14) Respiratory failure with hypoxia Status: Acute (15) Sepsis Status: Chronic (16) SOB (shortness of breath) Status: Acute (17) SVT (supraventricular tachycardia) Status: Acute (18) Weakness Status: Acute Review of Systems Constitutional: No chills, No fever Respiratory: No cough, No dyspnea on exertion, No shortness of breath, No sputum, No wheezing Cardiac: No chest pain Abdomen: No constipation, No diarrhea, No nausea, No pain, No vomiting Psychiatric: No depression symptoms Heme: No abnormal bleeding/bruising Medications Current Inpatient Medications Medications (Trade) Dose Ordered Sig/Kelly Route Start Time Stop Time Status Last Admin Dose Admin Pantoprazole Sodium (Protonix Tab) 40 mg QAM PO 04/01/16 09:00 05/01/16 08:59 04/29/16 09:00 40 MG Atorvastatin Calcium (Lipitor Tab) 10 mg HS PO 03/31/16 21:00 04/30/16 20:59 04/29/16 20:21 10 MG Levothyroxine Sodium (Synthroid Tab) 100 mcg DAILYBB PO 04/01/16 06:00 05/01/16 05:59 04/30/16 06:21 100 MCG Multivitamins/ Minerals (Multivitamin W/ Minerals Tab) 1 tab DAILY PO 04/01/16 09:00 05/01/16 08:59 04/29/16 08:59 1 TAB Tamsulosin HCl (Flomax Cap) 0.4 mg HS PO 03/31/16 21:00 04/30/16 20:59 04/29/16 20:20 0.4 MG Amiodarone HCl (Cordarone Tab) 100 mg QAM PO 04/01/16 09:00 05/01/16 08:59 04/29/16 09:02 100 MG Metoprolol Succinate (Toprol Xl Tab) 25 mg QAM PO 04/01/16 09:00 05/01/16 08:59 04/29/16 09:00 25 MG Potassium Chloride (Klor-Con Pwd) 20 meq BID PO 04/01/16 20:00 05/01/16 20:59 04/29/16 20:21 20 MEQ Tramadol HCl (Ultram Tab) 50 mg Q6H PRN PO 04/03/16 02:15 05/03/16 02:14 04/29/16 13:36 50 MG Heparin Sodium (Porcine) (Heparin 10 Unit/ ml 5 ml Flush) 5 ml PRN PRN FLUSH 04/04/16 08:30 05/04/16 08:29 04/19/16 20:36 5 ML Ipratropium [place] (Atrovent Hfa Inhaler) 4 puffs Q6 INH 04/06/16 18:00 05/06/16 17:59 04/30/16 06:21 4 PUFFS Albuterol (Ventolin Hfa Inhaler) 4 puffs Q6 INH 04/06/16 18:00 05/06/16 17:59 04/30/16 06:21 4 PUFFS Polyethylene (Miralax Powder Packet) 17 gm DAILY PO 04/06/16 15:15 05/06/16 15:14 04/28/16 08:52 17 GM Bisacodyl (Dulcolax Tab) 5 mg DAILY PRN PO 04/06/16 15:15 05/06/16 15:14 Furosemide (Lasix tab) 40 mg BID17 PO 04/08/16 17:00 05/08/16 16:59 04/29/16 16:10 40 MG Sertraline HCl (Zoloft Tab) 100 mg QAM PO 04/10/16 08:00 05/10/16 07:59 04/29/16 08:59 100 MG Al Hydroxide/Mg Hydroxide (Maalox Susp) 30 ml Q6H PRN PO 04/16/16 17:00 05/16/16 16:59 04/16/16 21:10 30 ML Senna/Docusate Sodium (Senokot S Tab) 1 tab QAM PO 04/17/16 08:00 05/17/16 07:59 04/29/16 08:59 1 TAB Miconazole Nitrate (Desenex Powder) 1 appln BID EXT 04/17/16 20:00 05/17/16 19:59 04/29/16 20:21 1 APPLN Lidocaine (Lidoderm Patch 5%) 1 patch QAM TD 04/20/16 08:00 05/20/16 07:59 04/29/16 09:00 1 PATCH Miscellaneous (Remove Lidoderm Patch) 1 ea DAILY@21 N/A 04/19/16 21:00 05/19/16 20:59 04/29/16 20:21 1 EA Heparin Sodium (Porcine) (Heparin 10 Unit/ ml 5 ml Flush) 5 ml PRN PRN FLUSH 04/19/16 20:45 05/19/16 20:44 04/29/16 06:08 5 ML Warfarin Sodium (Coumadin Tab) 5 mg DAILY@16 PO 04/24/16 16:00 05/24/16 15:59 04/29/16 16:10 5 MG Enteral Nutritional Formula (Arginaid Extra) 1 box DAILY PO 04/27/16 08:00 05/27/16 07:59 04/29/16 09:08 1 BOX Lidocaine (Lidoderm Patch 5%) 1 patch QAM TD 04/28/16 08:00 05/28/16 07:59 04/29/16 09:00 1 PATCH Miscellaneous (Remove Lidoderm Patch) 1 ea DAILY@21 N/A 04/28/16 21:00 05/28/16 20:59 04/29/16 20:21 1 EA Objective Vital Signs Date Time Temp Pulse Resp B/P Pulse Ox O2 Delivery O2 Flow Rate FiO2 04/30/16 06:08 68 20 96 Trach Collar 40 04/30/16 00:35 59 98 40 04/30/16 00:00 Trach Collar 10.0 40 04/29/16 23:54 36.8 60 18 133/75 96 Trach Collar 10.0 04/29/16 16:00 Trach Collar 10.0 40 04/29/16 09:00 Trach Collar 10.0 40 04/29/16 07:44 36.7 59 16 118/65 96 Trach Collar Physical Exam General Appearance: no apparent distress Neck: + pertinent finding (+trach) Respiratory/Chest: lungs clear, normal breath sounds, no respiratory distress, no accessory muscle use Cardiovascular: regular rate, rhythm, no edema, no murmur Extremities: normal inspection, no pedal edema Neurologic/Psychiatric: alert Assessment and Plan This is a 60 year old male with morbid obesity with chronic respiratory failure secondary to obesity hypoventilation s/p tracheostomy, hx. of DVT on anticoagulation, sick sinus syndrome s/p PPM, chronic lymphedema presented with acute respiratory failure Acute on Chronic Hypoxic Respiratory Failure, resolved 04/29 * back to baseline; no other issues today in terms of breathing * denies any pain 04/28 * back to baseline with breathing status * continue inhalers and trach care * plan for d/c to LTAC when approved 04/27 * patient has obesity hypoventilation, s/p tracheostomy * patient is back to baseline with his breathing status * appreciate pulmonology input * continue inhalers, Pulmozyme, trach care * plan for d/c to LTAC Chronic Lymphedema with Ulceration at Right Leg as well as Left Thigh * multiple organisms from wound culture, including pseudomonas * Patient was started on Vanc/Zosyn, then switched to Zosyn - now off of antibiotics * Currently afebrile, no sign of active/acute infection Depression * Zoloft has been increased during this admission * Appreciate psych input * Monitor EKG periodically for QT prolongation Metabolic encephalopathy, resolved * due to hypercapnia/respiratory failure as well as infection * CT head negative Urinary Retention * Chronic Indwelling Fitch * follows with outpatient urology Idiopathic cardiomyopathy/chronic diastolic CHF * euvolemic * continue Lasix 40mg BID History of Atrial Flutter with RVR Sick Sinus Syndrome s/p PPM * rate is controlled * asymptomatic * continue cardiac medications, amiodarone and metoprolol * continue Coumadin * recheck INR in AM Hypothyroidism * Continue levothyroxine DVT ppx * on warfarin GI ppx * Protonix 40 mg FULL NO CARDIOVERSION
[2016-04-30 07:55] VITALS: BP 112/65; PULSE 44; TEMP 36.8; O2SAT 96
[2016-04-30] MEDS: CEROVITE ADV FORMULA TAB PO SCH (09:15)
[2016-04-30] MEDS: DOCUSATE SODIUM/SENNA 50/8.6MG TAB PO SCH (09:15)
[2016-04-30] MEDS: SERTRALINE HCL 100 MG TAB PO SCH (09:15)
[2016-04-30] MEDS: METOPROLOL SUCC 25MG EXT REL TAB PO SCH (09:15)
[2016-04-30] MEDS: POTASSIUM CHLORIDE PWD 20 MEQ PACK PO SCH ×2 (09:16→20:13)
[2016-04-30] MEDS: PANTOprazole SOD 40 MG TAB PO SCH (09:16)
[2016-04-30] MEDS: POLYETHYLENE (MIRALAX) 17 GM PACK PO SCH (09:16)
[2016-04-30] MEDS: FUROSEMIDE 40 MG TAB PO SCH ×2 (09:16→16:05)
[2016-04-30] MEDS: LIDODERM (LIDOCAINE) PATCH 5% TD SCH ×2 (09:17→09:18)
[2016-04-30] MEDS: AMIODARONE 200 MG TAB PO SCH (09:17)
[2016-04-30] MEDS: ARGININE EXTRA NUTRITION DRINK 1 BOX PO SCH (09:17)
[2016-04-30] MEDS: MICONAZOLE NITRATE POWDER 43 GM EXT SCH ×2 (09:17→20:13)
[2016-04-30 09:19] VITALS: PULSE 49
--- NOTE | 2016-04-30 12:39 | Psychiatric Progress Notes ---
Psychiatric Progress Note Date of Service Apr 30, 2016. Notes D: Patient reviewed with liaison nurse. Interim progress reviewed. Still awaiting placement. Zoloft started and then titrated during last contact. CC: "just waiting" HPI: continues to deny depression, tolerating Zoloft, Intermittently will deny a dressing change or repositioning at time staff offer, overall cooperative. ROS: secretions/suctioned, no GI c/o MSE: alert, affect appears calm yet spontaneous, answers questions appropriately , continues to deny SI/HI. No evidence of psychosis. 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
[2016-04-30 13:02] VITALS: PULSE 60
--- NOTE | 2016-04-30 14:16 | Progress Note ---
Subjective Date of Service: Apr 30, 2016. Subjective Pt evaluation today including: conversation w/ patient, physical exam, lab review, review of studies, review of inpatient medication list Saw/examined the patient in room 421 Doing well, no complaints today Problem List Medical Problems: (1) Acute renal failure Status: Acute (2) Anemia Status: Acute (3) Anticoagulated on warfarin Status: Acute (4) Atrial fibrillation with RVR Status: Acute (5) Bradycardia Status: Acute (6) Bradycardia Status: Acute (7) Bradycardia Status: Acute (8) Hypotension Status: Acute (9) Hypoxia Status: Acute (10) Hypoxia Status: Acute (11) Morbid obesity Status: Acute (12) Pneumonia Status: Chronic (13) Pulmonary infiltrate in left lung on chest x-ray Status: Acute (14) Respiratory failure with hypoxia Status: Acute (15) Sepsis Status: Chronic (16) SOB (shortness of breath) Status: Acute (17) SVT (supraventricular tachycardia) Status: Acute (18) Weakness Status: Acute Review of Systems Constitutional: No chills, No fever Respiratory: No cough, No shortness of breath, No sputum Cardiac: No chest pain Abdomen: No diarrhea, No nausea, No pain, No vomiting Musculoskeletal: No joint pain Medications Current Inpatient Medications Medications (Trade) Dose Ordered Sig/Kelly Route Start Time Stop Time Status Last Admin Dose Admin Pantoprazole Sodium (Protonix Tab) 40 mg QAM PO 04/01/16 09:00 05/31/16 23:59 04/30/16 09:16 40 MG Atorvastatin Calcium (Lipitor Tab) 10 mg HS PO 03/31/16 21:00 05/30/16 23:59 04/29/16 20:21 10 MG Levothyroxine Sodium (Synthroid Tab) 100 mcg DAILYBB PO 04/01/16 06:00 05/31/16 23:59 04/30/16 06:21 100 MCG Multivitamins/ Minerals (Multivitamin W/ Minerals Tab) 1 tab DAILY PO 04/01/16 09:00 05/31/16 23:59 04/30/16 09:15 1 TAB Tamsulosin HCl (Flomax Cap) 0.4 mg HS PO 03/31/16 21:00 05/30/16 23:59 04/29/16 20:20 0.4 MG Amiodarone HCl (Cordarone Tab) 100 mg QAM PO 04/01/16 09:00 05/31/16 23:59 04/29/16 09:02 100 MG Metoprolol Succinate (Toprol Xl Tab) 25 mg QAM PO 04/01/16 09:00 05/31/16 23:59 04/29/16 09:00 25 MG Potassium Chloride (Klor-Con Pwd) 20 meq BID PO 04/01/16 20:00 05/31/16 23:59 04/30/16 09:16 20 MEQ Tramadol HCl (Ultram Tab) 50 mg Q6H PRN PO 04/03/16 02:15 05/03/16 02:14 04/29/16 13:36 50 MG Heparin Sodium (Porcine) (Heparin 10 Unit/ ml 5 ml Flush) 5 ml PRN PRN FLUSH 04/04/16 08:30 05/04/16 08:29 04/19/16 20:36 5 ML Ipratropium [place] (Atrovent Hfa Inhaler) 4 puffs Q6 INH 04/06/16 18:00 05/06/16 17:59 04/30/16 13:03 4 PUFFS Albuterol (Ventolin Hfa Inhaler) 4 puffs Q6 INH 04/06/16 18:00 05/06/16 17:59 04/30/16 13:03 4 PUFFS Polyethylene (Miralax Powder Packet) 17 gm DAILY PO 04/06/16 15:15 05/06/16 15:14 04/28/16 08:52 17 GM Bisacodyl (Dulcolax Tab) 5 mg DAILY PRN PO 04/06/16 15:15 05/06/16 15:14 Furosemide (Lasix tab) 40 mg BID17 PO 04/08/16 17:00 05/08/16 16:59 04/30/16 09:16 40 MG Sertraline HCl (Zoloft Tab) 100 mg QAM PO 04/10/16 08:00 05/10/16 07:59 04/30/16 09:15 100 MG Al Hydroxide/Mg Hydroxide (Maalox Susp) 30 ml Q6H PRN PO 04/16/16 17:00 05/16/16 16:59 04/16/16 21:10 30 ML Senna/Docusate Sodium (Senokot S Tab) 1 tab QAM PO 04/17/16 08:00 05/17/16 07:59 04/30/16 09:15 1 TAB Miconazole Nitrate (Desenex Powder) 1 appln BID EXT 04/17/16 20:00 05/17/16 19:59 04/30/16 09:17 1 APPLN Lidocaine (Lidoderm Patch 5%) 1 patch QAM TD 04/20/16 08:00 05/20/16 07:59 04/30/16 09:17 1 PATCH Miscellaneous (Remove Lidoderm Patch) 1 ea DAILY@21 N/A 04/19/16 21:00 05/19/16 20:59 04/29/16 20:21 1 EA Heparin Sodium (Porcine) (Heparin 10 Unit/ ml 5 ml Flush) 5 ml PRN PRN FLUSH 04/19/16 20:45 05/19/16 20:44 04/30/16 11:42 5 ML Warfarin Sodium (Coumadin Tab) 5 mg DAILY@16 PO 04/24/16 16:00 05/24/16 15:59 04/29/16 16:10 5 MG Enteral Nutritional Formula (Arginaid Extra) 1 box DAILY PO 04/27/16 08:00 05/27/16 07:59 04/29/16 09:08 1 BOX Lidocaine (Lidoderm Patch 5%) 1 patch QAM TD 04/28/16 08:00 05/28/16 07:59 04/30/16 09:18 1 PATCH Miscellaneous (Remove Lidoderm Patch) 1 ea DAILY@21 N/A 04/28/16 21:00 05/28/16 20:59 04/29/16 20:21 1 EA Objective Vital Signs Date Time Temp Pulse Resp B/P Pulse Ox O2 Delivery O2 Flow Rate FiO2 04/30/16 13:02 60 04/30/16 09:19 49 04/30/16 09:00 Trach Collar 10.0 40 04/30/16 07:55 36.8 44 20 112/65 96 04/30/16 06:08 68 20 96 Trach Collar 40 04/30/16 00:35 59 98 40 04/30/16 00:00 Trach Collar 10.0 40 04/29/16 23:54 36.8 60 18 133/75 96 Trach Collar 10.0 04/29/16 16:00 Trach Collar 10.0 40 Physical Exam General Appearance: no apparent distress, + obese Respiratory/Chest: lungs clear, normal breath sounds, no respiratory distress, no accessory muscle use Cardiovascular: regular rate, rhythm, no edema, no murmur Assessment and Plan This is a 60 year old male with morbid obesity with chronic respiratory failure secondary to obesity hypoventilation s/p tracheostomy, hx. of DVT on anticoagulation, sick sinus syndrome s/p PPM, chronic lymphedema presented with acute respiratory failure Acute on Chronic Hypoxic Respiratory Failure, resolved 04/30 * Doing well today, no complaints * will increase Coumadin today to reach INR goal of 2-3 04/29 * back to baseline; no other issues today in terms of breathing * denies any pain 04/28 * back to baseline with breathing status * continue inhalers and trach care * plan for d/c to LTAC when approved 04/27 * patient has obesity hypoventilation, s/p tracheostomy * patient is back to baseline with his breathing status * appreciate pulmonology input * continue inhalers, Pulmozyme, trach care * plan for d/c to LTAC Chronic Lymphedema with Ulceration at Right Leg as well as Left Thigh * multiple organisms from wound culture, including pseudomonas * Patient was started on Vanc/Zosyn, then switched to Zosyn - now off of antibiotics * Currently afebrile, no sign of active/acute infection Depression * Zoloft has been increased during this admission * Appreciate psych input * Monitor EKG periodically for QT prolongation Metabolic encephalopathy, resolved * due to hypercapnia/respiratory failure as well as infection * CT head negative Urinary Retention * Chronic Indwelling Fitch * follows with outpatient urology Idiopathic cardiomyopathy/chronic diastolic CHF * euvolemic * continue Lasix 40mg BID History of Atrial Flutter with RVR Sick Sinus Syndrome s/p PPM * rate is controlled * asymptomatic * continue cardiac medications, amiodarone and metoprolol * continue Coumadin * recheck INR in AM Hypothyroidism * Continue levothyroxine DVT ppx * on warfarin GI ppx * Protonix 40 mg FULL NO CARDIOVERSION
[2016-04-30 15:54] VITALS: BP 111/65; PULSE 60; TEMP 36.7; O2SAT 97
[2016-04-30] MEDS: WARFARIN SOD 7.5 MG TAB PO SCH (16:04)
[2016-04-30] MEDS: TAMSULOSIN HCL 0.4 MG CAP PO SCH (20:13)
[2016-04-30] MEDS: ATORVASTATIN 10 MG TAB PO SCH (20:13)
[2016-05-01] VITALS (7 sets, daily range): BP systolic 113–145; BP diastolic 57–70; PULSE 60; TEMP 36.6–36.9; O2SAT 96–97
[2016-05-01] MEDS: IPRATROPIUM BROMIDE HFA INHALER INH SCH ×5 (01:36→21:00)
[2016-05-01] MEDS: ALBUTEROL HFA 8 GM INHALER INH SCH ×5 (01:36→21:00)
[2016-05-01] MEDS: LEVOTHYROXINE 100 MCG TAB PO SCH (06:07)
[2016-05-01] MEDS: TRAMADOL HCL 50 MG TAB PO PRN (06:08)
[2016-05-01 06:39] LABS: INR 1.8 (0.9-1.1); PROTHROMBIN TIME (PATIENT) 20.1 SECONDS (9.0-12.0)
[2016-05-01] MEDS: POLYETHYLENE (MIRALAX) 17 GM PACK PO SCH (08:00)
[2016-05-01] MEDS: METOPROLOL SUCC 25MG EXT REL TAB PO SCH (09:50)
[2016-05-01] MEDS: DOCUSATE SODIUM/SENNA 50/8.6MG TAB PO SCH (09:51)
[2016-05-01] MEDS: AMIODARONE 200 MG TAB PO SCH (09:51)
[2016-05-01] MEDS: SERTRALINE HCL 100 MG TAB PO SCH (09:51)
[2016-05-01] MEDS: PANTOprazole SOD 40 MG TAB PO SCH (09:52)
[2016-05-01] MEDS: FUROSEMIDE 40 MG TAB PO SCH ×2 (09:52→15:41)
[2016-05-01] MEDS: LIDODERM (LIDOCAINE) PATCH 5% TD SCH ×2 (09:53)
[2016-05-01] MEDS: CEROVITE ADV FORMULA TAB PO SCH (09:54)
[2016-05-01] MEDS: POTASSIUM CHLORIDE PWD 20 MEQ PACK PO SCH ×2 (09:54→21:01)
[2016-05-01] MEDS: ARGININE EXTRA NUTRITION DRINK 1 BOX PO SCH (09:55)
--- NOTE | 2016-05-01 11:22 | Progress Note ---
Subjective Date of Service: May 01, 2016. Subjective Pt evaluation today including: conversation w/ patient, physical exam, lab review, review of studies, review of inpatient medication list Saw/examined the patient in room 421 Doing well, no complaints Problem List Medical Problems: (1) Acute renal failure Status: Acute (2) Anemia Status: Acute (3) Anticoagulated on warfarin Status: Acute (4) Atrial fibrillation with RVR Status: Acute (5) Bradycardia Status: Acute (6) Bradycardia Status: Acute (7) Bradycardia Status: Acute (8) Hypotension Status: Acute (9) Hypoxia Status: Acute (10) Hypoxia Status: Acute (11) Morbid obesity Status: Acute (12) Pneumonia Status: Chronic (13) Pulmonary infiltrate in left lung on chest x-ray Status: Acute (14) Respiratory failure with hypoxia Status: Acute (15) Sepsis Status: Chronic (16) SOB (shortness of breath) Status: Acute (17) SVT (supraventricular tachycardia) Status: Acute (18) Weakness Status: Acute Review of Systems Respiratory: No cough, No shortness of breath, No sputum Cardiac: No chest pain Musculoskeletal: + joint pain (controlled with meds) Medications Current Inpatient Medications Medications (Trade) Dose Ordered Sig/Kelly Route Start Time Stop Time Status Last Admin Dose Admin Pantoprazole Sodium (Protonix Tab) 40 mg QAM PO 04/01/16 09:00 05/31/16 23:59 05/01/16 09:52 40 MG Atorvastatin Calcium (Lipitor Tab) 10 mg HS PO 03/31/16 21:00 05/30/16 23:59 04/30/16 20:13 10 MG Levothyroxine Sodium (Synthroid Tab) 100 mcg DAILYBB PO 04/01/16 06:00 05/31/16 23:59 05/01/16 06:07 100 MCG Multivitamins/ Minerals (Multivitamin W/ Minerals Tab) 1 tab DAILY PO 04/01/16 09:00 05/31/16 23:59 05/01/16 09:54 1 TAB Tamsulosin HCl (Flomax Cap) 0.4 mg HS PO 03/31/16 21:00 05/30/16 23:59 04/30/16 20:13 0.4 MG Amiodarone HCl (Cordarone Tab) 100 mg QAM PO 04/01/16 09:00 2/20/17 23:59 05/01/16 09:51 100 MG Metoprolol Succinate (Toprol Xl Tab) 25 mg QAM PO 04/01/16 09:00 05/31/16 23:59 05/01/16 09:50 25 MG Potassium Chloride (Klor-Con Pwd) 20 meq BID PO 04/01/16 20:00 05/31/16 23:59 05/01/16 09:54 20 MEQ Tramadol HCl (Ultram Tab) 50 mg Q6H PRN PO 04/03/16 02:15 05/03/16 02:14 05/01/16 06:08 50 MG Heparin Sodium (Porcine) (Heparin 10 Unit/ ml 5 ml Flush) 5 ml PRN PRN FLUSH 04/04/16 08:30 05/04/16 08:29 04/19/16 20:36 5 ML Ipratropium [place] (Atrovent Hfa Inhaler) 4 puffs Q6 INH 04/06/16 18:00 05/06/16 17:59 05/01/16 06:09 4 PUFFS Albuterol (Ventolin Hfa Inhaler) 4 puffs Q6 INH 04/06/16 18:00 05/06/16 17:59 05/01/16 06:12 4 PUFFS Polyethylene (Miralax Powder Packet) 17 gm DAILY PO 04/06/16 15:15 05/06/16 15:14 04/28/16 08:52 17 GM Bisacodyl (Dulcolax Tab) 5 mg DAILY PRN PO 04/06/16 15:15 05/06/16 15:14 Furosemide (Lasix tab) 40 mg BID17 PO 04/08/16 17:00 05/08/16 16:59 05/01/16 09:52 40 MG Sertraline HCl (Zoloft Tab) 100 mg QAM PO 04/10/16 08:00 05/10/16 07:59 05/01/16 09:51 100 MG Al Hydroxide/Mg Hydroxide (Maalox Susp) 30 ml Q6H PRN PO 04/16/16 17:00 05/16/16 16:59 04/16/16 21:10 30 ML Senna/Docusate Sodium (Senokot S Tab) 1 tab QAM PO 04/17/16 08:00 05/17/16 07:59 05/01/16 09:51 1 TAB Miconazole Nitrate (Desenex Powder) 1 appln BID EXT 04/17/16 20:00 05/17/16 19:59 04/30/16 20:13 1 APPLN Lidocaine (Lidoderm Patch 5%) 1 patch QAM TD 04/20/16 08:00 05/20/16 07:59 05/01/16 09:53 1 PATCH Miscellaneous (Remove Lidoderm Patch) 1 ea DAILY@21 N/A 04/19/16 21:00 05/19/16 20:59 04/30/16 20:13 1 EA Heparin Sodium (Porcine) (Heparin 10 Unit/ ml 5 ml Flush) 5 ml PRN PRN FLUSH 04/19/16 20:45 05/19/16 20:44 05/01/16 06:14 5 ML Enteral Nutritional Formula (Arginaid Extra) 1 box DAILY PO 04/27/16 08:00 05/27/16 07:59 05/01/16 09:55 1 BOX Lidocaine (Lidoderm Patch 5%) 1 patch QAM TD 04/28/16 08:00 05/28/16 07:59 05/01/16 09:53 1 PATCH Miscellaneous (Remove Lidoderm Patch) 1 ea DAILY@21 N/A 04/28/16 21:00 05/28/16 20:59 04/30/16 20:13 1 EA Warfarin Sodium (Coumadin Tab) 7.5 mg DAILY@16 PO 04/30/16 16:00 05/30/16 15:59 04/30/16 16:04 7.5 MG Objective Vital Signs Date Time Temp Pulse Resp B/P Pulse Ox O2 Delivery O2 Flow Rate FiO2 05/01/16 07:27 36.6 60 18 126/57 96 Trach Collar 11.0 40 05/01/16 00:13 36.9 60 18 145/70 96 Room Air 05/01/16 00:00 96 BiPAP 10.0 40 Trach Collar 04/30/16 16:00 Trach Collar 10.0 40 04/30/16 15:54 36.7 60 20 111/65 97 Trach Collar 04/30/16 13:02 60 Physical Exam General Appearance: no apparent distress, + obese Neck: + pertinent finding (+trach) Respiratory/Chest: lungs clear, normal breath sounds, no respiratory distress, no accessory muscle use Cardiovascular: regular rate, rhythm Abdomen: + pertinent finding (urinary cath in place) Extremities: + pertinent finding (chronic lymphedema) Laboratory Results Last 24 Hours Test 05/01/16 05:41 Prothrombin Time 20.1 SECONDS Prothromb Time International Ratio 1.8 Assessment and Plan This is a 60 year old male with morbid obesity with chronic respiratory failure secondary to obesity hypoventilation s/p tracheostomy, hx. of DVT on anticoagulation, sick sinus syndrome s/p PPM, chronic lymphedema presented with acute respiratory failure Acute on Chronic Hypoxic Respiratory Failure, resolved 05/01 * no issues to note today * Coumadin increased, will recheck INR in AM 04/30 * Doing well today, no complaints * will increase Coumadin today to reach INR goal of 2-3 04/29 * back to baseline; no other issues today in terms of breathing * denies any pain 04/28 * back to baseline with breathing status * continue inhalers and trach care * plan for d/c to LTAC when approved 04/27 * patient has obesity hypoventilation, s/p tracheostomy * patient is back to baseline with his breathing status * appreciate pulmonology input * continue inhalers, Pulmozyme, trach care * plan for d/c to LTAC Chronic Lymphedema with Ulceration at Right Leg as well as Left Thigh * multiple organisms from wound culture, including pseudomonas * Patient was started on Vanc/Zosyn, then switched to Zosyn - now off of antibiotics * Currently afebrile, no sign of active/acute infection Depression * Zoloft has been increased during this admission * Appreciate psych input * Monitor EKG periodically for QT prolongation Metabolic encephalopathy, resolved * due to hypercapnia/respiratory failure as well as infection * CT head negative Urinary Retention * Chronic Indwelling Fitch * follows with outpatient urology Idiopathic cardiomyopathy/chronic diastolic CHF * euvolemic * continue Lasix 40mg BID History of Atrial Flutter with RVR Sick Sinus Syndrome s/p PPM * rate is controlled * asymptomatic * continue cardiac medications, amiodarone and metoprolol * continue Coumadin * recheck INR in AM Hypothyroidism * Continue levothyroxine DVT ppx * on warfarin GI ppx * Protonix 40 mg FULL NO CARDIOVERSION
[2016-05-01] MEDS: MICONAZOLE NITRATE POWDER 43 GM EXT SCH ×2 (13:35→20:58)
[2016-05-01] MEDS: WARFARIN SOD 7.5 MG TAB PO SCH (15:43)
[2016-05-01] MEDS: ATORVASTATIN 10 MG TAB PO SCH (20:59)
[2016-05-01] MEDS: TAMSULOSIN HCL 0.4 MG CAP PO SCH (20:59)
[2016-05-02] VITALS (7 sets, daily range): BP systolic 98–135; BP diastolic 61–72; PULSE 59–61; TEMP 36.8–37; O2SAT 94–99
[2016-05-02 05:59] LABS: PROTHROMBIN TIME (PATIENT) 22.1 SECONDS (9.0-12.0)
[2016-05-02] MEDS: LEVOTHYROXINE 100 MCG TAB PO SCH (06:18)
[2016-05-02] MEDS: IPRATROPIUM BROMIDE HFA INHALER INH SCH ×5 (06:19→20:54)
[2016-05-02] MEDS: ALBUTEROL HFA 8 GM INHALER INH SCH ×5 (06:19→20:55)
[2016-05-02] MEDS: METOPROLOL SUCC 25MG EXT REL TAB PO SCH (08:00)
[2016-05-02] MEDS: POLYETHYLENE (MIRALAX) 17 GM PACK PO SCH (08:00)
--- NOTE | 2016-05-02 11:47 | Progress Note ---
Subjective Date of Service: May 02, 2016. Subjective Pt evaluation today including: conversation w/ patient, physical exam, lab review, review of studies, review of inpatient medication list Saw/examined the patient in room 421 No problems/issues to note Problem List Medical Problems: (1) Acute renal failure Status: Acute (2) Anemia Status: Acute (3) Anticoagulated on warfarin Status: Acute (4) Atrial fibrillation with RVR Status: Acute (5) Bradycardia Status: Acute (6) Bradycardia Status: Acute (7) Bradycardia Status: Acute (8) Hypotension Status: Acute (9) Hypoxia Status: Acute (10) Hypoxia Status: Acute (11) Morbid obesity Status: Acute (12) Pneumonia Status: Chronic (13) Pulmonary infiltrate in left lung on chest x-ray Status: Acute (14) Respiratory failure with hypoxia Status: Acute (15) Sepsis Status: Chronic (16) SOB (shortness of breath) Status: Acute (17) SVT (supraventricular tachycardia) Status: Acute (18) Weakness Status: Acute Review of Systems Constitutional: No chills, No fever Respiratory: No cough, No shortness of breath, No sputum Cardiac: No chest pain Objective Vital Signs Date Time Temp Pulse Resp B/P Pulse Ox O2 Delivery O2 Flow Rate FiO2 05/02/16 08:00 96 Trach Collar 11.0 40 05/02/16 07:27 36.8 59 18 114/63 94 Trach Collar 11.0 40 05/02/16 00:06 36.8 60 18 135/72 99 Room Air 05/02/16 00:00 96 Trach Collar 10.0 40 05/01/16 20:00 96 Trach Collar 10.0 40 05/01/16 16:09 97 Trach Collar 11.0 40 05/01/16 15:05 36.8 60 18 113/67 97 Trach Collar 11.0 40 Physical Exam General Appearance: no apparent distress, + obese Neck: + pertinent finding (+trach) Respiratory/Chest: lungs clear, normal breath sounds, no respiratory distress, no accessory muscle use Extremities: + pertinent finding (chronic lymphedema) Laboratory Results Last 24 Hours Test 05/02/16 05:20 Prothrombin Time 22.1 SECONDS Prothromb Time International Ratio 2.0 Assessment and Plan This is a 60 year old male with morbid obesity with chronic respiratory failure secondary to obesity hypoventilation s/p tracheostomy, hx. of DVT on anticoagulation, sick sinus syndrome s/p PPM, chronic lymphedema presented with acute respiratory failure Acute on Chronic Hypoxic Respiratory Failure, resolved 05/02 * INR now therapeutic, will monitor daily to get a new dosing schedule * no other issues; awaiting placement 05/01 * no issues to note today * Coumadin increased, will recheck INR in AM 04/30 * Doing well today, no complaints * will increase Coumadin today to reach INR goal of 2-3 04/29 * back to baseline; no other issues today in terms of breathing * denies any pain 04/28 * back to baseline with breathing status * continue inhalers and trach care * plan for d/c to LTAC when approved 04/27 * patient has obesity hypoventilation, s/p tracheostomy * patient is back to baseline with his breathing status * appreciate pulmonology input * continue inhalers, Pulmozyme, trach care * plan for d/c to LTAC Chronic Lymphedema with Ulceration at Right Leg as well as Left Thigh * multiple organisms from wound culture, including pseudomonas * Patient was started on Vanc/Zosyn, then switched to Zosyn - now off of antibiotics * Currently afebrile, no sign of active/acute infection Depression * Zoloft has been increased during this admission * Appreciate psych input * Monitor EKG periodically for QT prolongation Metabolic encephalopathy, resolved * due to hypercapnia/respiratory failure as well as infection * CT head negative Urinary Retention * Chronic Indwelling Fitch * follows with outpatient urology Idiopathic cardiomyopathy/chronic diastolic CHF * euvolemic * continue Lasix 40mg BID History of Atrial Flutter with RVR Sick Sinus Syndrome s/p PPM * rate is controlled * asymptomatic * continue cardiac medications, amiodarone and metoprolol * continue Coumadin * recheck INR in AM Hypothyroidism * Continue levothyroxine DVT ppx * on warfarin GI ppx * Protonix 40 mg FULL NO CARDIOVERSION
[2016-05-02] MEDS: ARGININE EXTRA NUTRITION DRINK 1 BOX PO SCH (13:02)
[2016-05-02] MEDS: MICONAZOLE NITRATE POWDER 43 GM EXT SCH ×2 (13:02→20:49)
[2016-05-02] MEDS: AMIODARONE 200 MG TAB PO SCH (13:03)
[2016-05-02] MEDS: POTASSIUM CHLORIDE PWD 20 MEQ PACK PO SCH ×2 (13:03→20:49)
[2016-05-02] MEDS: PANTOprazole SOD 40 MG TAB PO SCH (13:04)
[2016-05-02] MEDS: CEROVITE ADV FORMULA TAB PO SCH (13:04)
[2016-05-02] MEDS: SERTRALINE HCL 100 MG TAB PO SCH (13:05)
[2016-05-02] MEDS: DOCUSATE SODIUM/SENNA 50/8.6MG TAB PO SCH (13:05)
[2016-05-02] MEDS: LIDODERM (LIDOCAINE) PATCH 5% TD SCH ×2 (13:06)
[2016-05-02] MEDS: FUROSEMIDE 40 MG TAB PO SCH ×2 (13:07→16:13)
[2016-05-02] MEDS: WARFARIN SOD 7.5 MG TAB PO SCH (16:13)
[2016-05-02] MEDS: TAMSULOSIN HCL 0.4 MG CAP PO SCH (20:49)
[2016-05-02] MEDS: ATORVASTATIN 10 MG TAB PO SCH (20:50)
[2016-05-03] VITALS (7 sets, daily range): BP systolic 122–128; BP diastolic 64–74; PULSE 58–65; TEMP 36.9–37.1; O2SAT 95–99
[2016-05-03] MEDS: IPRATROPIUM BROMIDE HFA INHALER INH SCH ×5 (00:34→23:45)
[2016-05-03] MEDS: ALBUTEROL HFA 8 GM INHALER INH SCH ×5 (00:35→23:45)
[2016-05-03 05:36] LABS: INR 2.1 (0.9-1.1); PROTHROMBIN TIME (PATIENT) 22.8 SECONDS (9.0-12.0)
[2016-05-03] MEDS: LEVOTHYROXINE 100 MCG TAB PO SCH (06:28)
[2016-05-03] MEDS: PANTOprazole SOD 40 MG TAB PO SCH (08:54)
[2016-05-03] MEDS: FUROSEMIDE 40 MG TAB PO SCH ×2 (08:54→16:09)
[2016-05-03] MEDS: DOCUSATE SODIUM/SENNA 50/8.6MG TAB PO SCH (08:55)
[2016-05-03] MEDS: SERTRALINE HCL 100 MG TAB PO SCH (08:55)
[2016-05-03] MEDS: METOPROLOL SUCC 25MG EXT REL TAB PO SCH (08:55)
[2016-05-03] MEDS: LIDODERM (LIDOCAINE) PATCH 5% TD SCH ×2 (08:55→08:56)
[2016-05-03] MEDS: POTASSIUM CHLORIDE PWD 20 MEQ PACK PO SCH ×2 (08:55→21:00)
[2016-05-03] MEDS: CEROVITE ADV FORMULA TAB PO SCH (08:55)
[2016-05-03] MEDS: POLYETHYLENE (MIRALAX) 17 GM PACK PO SCH (08:56)
[2016-05-03] MEDS: AMIODARONE 200 MG TAB PO SCH (08:57)
[2016-05-03] MEDS: ARGININE EXTRA NUTRITION DRINK 1 BOX PO SCH (08:58)
[2016-05-03] MEDS: MICONAZOLE NITRATE POWDER 43 GM EXT SCH ×2 (08:58→21:03)
[2016-05-03] MEDS ORDERED: MAGNESIUM HYDROXIDE SUSP 30 ML UDC PO ONE (10:15)
--- NOTE | 2016-05-03 14:29 | Progress Note ---
Subjective Date of Service: May 03, 2016. Subjective Pt evaluation today including: conversation w/ patient, physical exam, lab review, review of studies, review of inpatient medication list Saw/examined the patient in room 421 +bowel movement today No other complaints Problem List Medical Problems: (1) Acute renal failure Status: Acute (2) Anemia Status: Acute (3) Anticoagulated on warfarin Status: Acute (4) Atrial fibrillation with RVR Status: Acute (5) Bradycardia Status: Acute (6) Bradycardia Status: Acute (7) Bradycardia Status: Acute (8) Hypotension Status: Acute (9) Hypoxia Status: Acute (10) Hypoxia Status: Acute (11) Morbid obesity Status: Acute (12) Pneumonia Status: Chronic (13) Pulmonary infiltrate in left lung on chest x-ray Status: Acute (14) Respiratory failure with hypoxia Status: Acute (15) Sepsis Status: Chronic (16) SOB (shortness of breath) Status: Acute (17) SVT (supraventricular tachycardia) Status: Acute (18) Weakness Status: Acute Review of Systems Respiratory: + problem reported (secretions through trach), No cough, No dyspnea on exertion, No shortness of breath, No sputum, No wheezing Abdomen: No constipation, No diarrhea, No nausea, No pain, No vomiting Objective Vital Signs Date Time Temp Pulse Resp B/P Pulse Ox O2 Delivery O2 Flow Rate FiO2 05/03/16 09:00 Trach Collar 10.0 40 05/03/16 08:58 65 05/03/16 07:40 37.0 58 20 128/64 98 Trach Collar 10.0 05/03/16 00:55 65 99 40 05/03/16 00:16 37.1 60 20 126/74 97 Room Air 05/03/16 00:00 96 Trach Collar 10.0 40 05/02/16 20:00 96 Trach Collar 10.0 40 05/02/16 16:00 99 Trach Collar 11.0 40 05/02/16 15:38 37.0 61 18 98/61 99 Trach Collar 11.0 40 Physical Exam General Appearance: no apparent distress, + obese Neck: + pertinent finding (+trach) Respiratory/Chest: lungs clear, normal breath sounds, no respiratory distress, no accessory muscle use Cardiovascular: regular rate, rhythm, no murmur Extremities: + pertinent finding (+chronic lymphedema) Laboratory Results Last 24 Hours Test 05/03/16 05:00 Prothrombin Time 22.8 SECONDS Prothromb Time International Ratio 2.1 Assessment and Plan This is a 60 year old male with morbid obesity with chronic respiratory failure secondary to obesity hypoventilation s/p tracheostomy, hx. of DVT on anticoagulation, sick sinus syndrome s/p PPM, chronic lymphedema presented with acute respiratory failure Acute on Chronic Hypoxic Respiratory Failure, resolved 05/03 * Doing well, resting comfortably * Plan is for LTAC; case work aide aware * INR now therapeutic, may need Coumadin 7.5mg daily from now on * patient had bowel movement today * good PO intake 05/02 * INR now therapeutic, will monitor daily to get a new dosing schedule * no other issues; awaiting placement 05/01 * no issues to note today * Coumadin increased, will recheck INR in AM 04/30 * Doing well today, no complaints * will increase Coumadin today to reach INR goal of 2-3 04/29 * back to baseline; no other issues today in terms of breathing * denies any pain 04/28 * back to baseline with breathing status * continue inhalers and trach care * plan for d/c to LTAC when approved 04/27 * patient has obesity hypoventilation, s/p tracheostomy * patient is back to baseline with his breathing status * appreciate pulmonology input * continue inhalers, Pulmozyme, trach care * plan for d/c to LTAC Chronic Lymphedema with Ulceration at Right Leg as well as Left Thigh * multiple organisms from wound culture, including pseudomonas * Patient was started on Vanc/Zosyn, then switched to Zosyn - now off of antibiotics * Currently afebrile, no sign of active/acute infection Depression * Zoloft has been increased during this admission * Appreciate psych input * Monitor EKG periodically for QT prolongation Metabolic encephalopathy, resolved * due to hypercapnia/respiratory failure as well as infection * CT head negative Urinary Retention * Chronic Indwelling Fitch * follows with outpatient urology Idiopathic cardiomyopathy/chronic diastolic CHF * euvolemic * continue Lasix 40mg BID History of Atrial Flutter with RVR Sick Sinus Syndrome s/p PPM * rate is controlled * asymptomatic * continue cardiac medications, amiodarone and metoprolol * continue Coumadin * recheck INR in AM Hypothyroidism * Continue levothyroxine DVT ppx * on warfarin GI ppx * Protonix 40 mg FULL NO CARDIOVERSION
[2016-05-03] MEDS ORDERED: MAGNESIUM HYDROXIDE SUSP 30 ML UDC PO PRN (16:00)
[2016-05-03] MEDS: WARFARIN SOD 7.5 MG TAB PO SCH (16:08)
[2016-05-03 16:45] LABS: HEPATITIS B AB NEG
[2016-05-03] MEDS: TAMSULOSIN HCL 0.4 MG CAP PO SCH (20:59)
[2016-05-03] MEDS: ATORVASTATIN 10 MG TAB PO SCH (21:00)
[2016-05-04 05:39] LABS: HEMATOCRIT 27.4 % (42-52); MEAN CELL VOLUME 85.6 fL (80-100); MEAN CORPUSCULAR HEMOGLOBIN 27.8 pg (25-34); MEAN CORPUSCULAR HGB CONC 32.5 g/dl (32-36); MEAN PLATELET VOLUME 8.2 fL (7.4-10.4); PLATELET COUNT 261 K/uL (130-400); WHITE BLOOD COUNT 5.52 K/uL (4.8-10.8)
[2016-05-04 06:08] LABS: BUN/CREATININE RATIO 23.4 (10-20); CALCIUM 9.1 mg/dl (8.5-10.1); CREATININE 0.93 mg/dl (0.60-1.40); MAGNESIUM 1.9 mg/dl (1.8-2.4); POTASSIUM 3.8 mmol/L (3.5-5.1)
[2016-05-04] MEDS: IPRATROPIUM BROMIDE HFA INHALER INH SCH ×3 (06:18→18:57)
[2016-05-04] MEDS: ALBUTEROL HFA 8 GM INHALER INH SCH ×3 (06:19→18:57)
[2016-05-04] MEDS: LEVOTHYROXINE 100 MCG TAB PO SCH (06:19)
[2016-05-04 07:35] VITALS: BP 121/69; PULSE 60; TEMP 36.7; O2SAT 92
[2016-05-04] MEDS: AMIODARONE 200 MG TAB PO SCH (08:06)
[2016-05-04] MEDS: POTASSIUM CHLORIDE PWD 20 MEQ PACK PO SCH ×2 (08:07→20:23)
[2016-05-04] MEDS: POLYETHYLENE (MIRALAX) 17 GM PACK PO SCH ×3 (08:07→11:35)
[2016-05-04] MEDS: CEROVITE ADV FORMULA TAB PO SCH (08:08)
[2016-05-04] MEDS: PANTOprazole SOD 40 MG TAB PO SCH (08:09)
[2016-05-04] MEDS: DOCUSATE SODIUM/SENNA 50/8.6MG TAB PO SCH (08:10)
[2016-05-04] MEDS: METOPROLOL SUCC 25MG EXT REL TAB PO SCH (08:11)
[2016-05-04] MEDS: SERTRALINE HCL 100 MG TAB PO SCH (08:11)
[2016-05-04] MEDS: LIDODERM (LIDOCAINE) PATCH 5% TD SCH ×2 (08:13→08:15)
[2016-05-04] MEDS: ARGININE EXTRA NUTRITION DRINK 1 BOX PO SCH (08:16)
[2016-05-04] MEDS: MICONAZOLE NITRATE POWDER 43 GM EXT SCH ×2 (08:16→20:00)
[2016-05-04 10:29] VITALS: O2SAT 91
[2016-05-04] MEDS: FUROSEMIDE 40 MG TAB PO SCH ×2 (10:46→16:55)
--- NOTE | 2016-05-04 11:15 | Progress Note ---
Internal Med Progress Note Date of Service: May 04, 2016. Provider Documentation: SUBJECTIVE: Patient is sitting in his bed and is in no apparent distress. Breathing comfortably. Denies any new change or complaint. OBJECTIVE: Vital Signs-as noted below Examination: General Appearance: no apparent distress, + obese HEENT: Normocephalic, Eyes, Ears, Nose & Throat are normal looking. Neck: Tracheostomy present. Respiratory/Chest: lungs clear, normal breath sounds, no respiratory distress, no accessory muscle use Cardiovascular: regular rate, rhythm, no murmur Extremities: + pertinent finding (+chronic lymphedema) Lab data as noted below. ASSESSMENT & PLAN: Acute on Chronic Hypoxic Respiratory Failure: Resolved. Patient has obesity hypoventilation, s/p tracheostomy -Back to baseline with his breathing status -Appreciate pulmonology input -Continue inhalers, Pulmozyme, trach care -Plan for d/c to LTAC or Subacute facility -Oral intake is reasonable. Chronic Lymphedema: With chronic Ulceration at Right Leg as well as Left Thigh -Multiple organisms from wound culture, including pseudomonas -Patient was started on Vanc/Zosyn, then switched to Zosyn - now off of antibiotics -Currently afebrile, no sign of active/acute infection Depression: Stable. -Zoloft has been increased during this admission -Appreciate psych input -Need to monitor EKG periodically for QT prolongation Metabolic encephalopathy: Resolved. -Likely due to hypercapnia/respiratory failure as well as infection -CT head negative Urinary Retention: Has Chronic Indwelling Fitch -Follows with outpatient urology Idiopathic cardiomyopathy/chronic diastolic CHF: Stable & is euvolemic -Continue Lasix 40mg BID History of Atrial Flutter with RVR, Sick Sinus Syndrome s/p PPM: Heart rate is controlled -Continue cardiac medications, amiodarone and metoprolol -Continue Coumadin -INR os therapeutic Hypothyroidism: Stable.Continue levothyroxine DVT Prophylaxis: * Coumadin. GI Prophylaxis: Protonix 40 mg Code Status:m FULL NO CARDIOVERSION DISPOSITION: [place] that she is accepted to [facility] facility. Will confirm and do discharge paperwork accordingly. Vital Signs: Date Time Temp Pulse Resp B/P Pulse Ox O2 Delivery O2 Flow Rate FiO2 05/04/16 10:29 91 Trach Collar 10.0 05/04/16 07:35 36.7 60 18 121/69 92 Trach Collar 10.0 05/04/16 00:10 Trach Collar 10.0 05/03/16 23:02 36.9 60 22 124/72 95 Trach Collar 05/03/16 16:30 Trach Collar 10.0 40 05/03/16 15:34 37.0 60 18 122/69 96 Trach Collar Lab Results: Results Past 24 Hours Test 05/03/16 15:21 05/04/16 05:12 Range/Units Hepatitis B Surface Antibody NEG Hepatitis C Antibody NEG NEG White Blood Count 5.52 4.8-10.8 K/uL Red Blood Count 3.20 4.7-6.1 M/uL Hemoglobin 8.9 14.0-18.0 g/dL Hematocrit 27.4 42-52 % Mean Corpuscular Volume 85.6 80-100 fL Mean Corpuscular Hemoglobin 27.8 25-34 pg Mean Corpuscular Hemoglobin Concent 32.5 32-36 g/dl RDW Standard Deviation 52.3 36.4-46.3 fL RDW Coefficient of Variation 16.4 11.5-14.5 % Platelet Count 261 130-400 K/uL Mean Platelet Volume 8.2 7.4-10.4 fL Sodium Level 141 136-145 mmol/L Potassium Level 3.8 3.5-5.1 mmol/L Chloride Level 100 98-107 mmol/L Carbon Dioxide Level 36 21-32 mmol/L Anion Gap 5.0 3-11 mmol/L Blood Urea Nitrogen 22 7-18 mg/dl Creatinine 0.93 0.60-1.40 mg/dl Est Creatinine Clear Calc Drug Dose 121.6 ml/min Estimated GFR () 103.8 Estimated GFR (Non- 89.5 BUN/Creatinine Ratio 23.4 10-20 Random Glucose 88 70-99 mg/dl Calcium Level 9.1 8.5-10.1 mg/dl Magnesium Level 1.9 1.8-2.4 mg/dl
[2016-05-04 11:58] VITALS: BP 147/78; PULSE 60; TEMP 36.5; O2SAT 95
--- NOTE | 2016-05-04 13:55 | Discharge Instructions ---
Discharge Instructions Admission Reason for Admission: Respiratory Failure,Acute Discharge Goals Goal(s): Decrease discomfort, Improve function, Increase independence, Improve disease control, Improve nutritional status, Learn about illness, Therapeutic intervention, Prevent Disease Progression Activity Recommendations Activity Limitations: resume your previous activity Exercise/Sports Limitations: as tolerated Driving or Machine Use: I bed bound. . Current Hospital Diet Patient's current hospital diet: AHA Diet (Heart Healthy) Medical Emergencies . Who to Call and When: Medical Emergencies: If at any time you feel your situation is an emergency, please call 911 immediately. . Non-Emergent Contact . . "Provider Documentation" section prepared by Kevin Mcintosh.
--- NOTE | 2016-05-04 13:58 | Discharge Instructions ---
Discharge Instructions Admission Reason for Admission: Respiratory Failure,Acute Discharge Discharge Diagnosis / Problem: Acute On Chronic Respiratory failure Discharge Goals Goal(s): Decrease discomfort, Improve function, Increase independence, Improve disease control Activity Recommendations Activity Limitations: resume your previous activity Driving or Machine Use: Is bed bound. . Instructions / Follow-Up Instructions / Follow-Up Follow up with the Physician at the Facility. Current Hospital Diet Patient's current hospital diet: AHA Diet (Heart Healthy) Discharge Diet Recommended Diet: AHA Diet (Heart Healthy) Fluid Restriction: 1800 ml (7 cups) Pending Studies Studies pending at discharge: no Medical Emergencies . Who to Call and When: Medical Emergencies: If at any time you feel your situation is an emergency, please call 911 immediately. . Non-Emergent Contact Non-Emergency issues call your: Primary Care Provider (At the facility) . . "Provider Documentation" section prepared by Kevin Mcintosh. VTE Core Measure Inpt VTE Proph given/why not?: Warfarin (Coumadin)
[2016-05-04] MEDS ORDERED: SENN8.6T7 PO (14:02)
[2016-05-04] MEDS ORDERED: TPRSR25 PO (14:02)
[2016-05-04] MEDS ORDERED: SERT1TAB92 PO (14:02)
--- NOTE | 2016-05-04 14:10 | Discharge Summary ---
Discharge Summary Admission Date: Mar 29, 2016 at 07:36 Discharge Date: May 05, 2016 Discharge Disposition: Rehab Principal Diagnosis: Acute On Chronic Hypoxic Respiratory Failure Metabolic Encephalopathy (Resolved) Secondary Diagnoses/Problems: Chronic Lymphedema Depression Chronic Diastolic Failure Chronic Urinary Retention Hypothyroidism Procedures: NONE Vaccinations: NONE Consultations: Pulmonology PT/OT [facility] Cardio Psych Wound Care Pending Studies/Follow-Up: NONE Medication Reconciliation New Medications: Metoprolol Succinate (Metoprolol Succinate ER) 25 Mg Tabcr 25 MG PO QAM for 30 Days, TABS 1 Refill Sennosides-Docusate Sodium (Senokot S) 1 Tab Tab 1 TAB PO QAM PRN for Constipation, #30 TAB Sertraline HCl (Sertraline HCl) 100 Mg Tab 100 MG PO QAM for 30 Days, #30 TAB Continued Medications: Acetaminophen (Tylenol) 325 Mg Tab 650 MG PO Q4H PRN for Pain for 30 Days, #240 TAB Albuterol Soln (Proventil 0.083% 2.5MG/3ML) Nebu 2.5 MG INH Q4 PRN for SOB/Wheezing, EA Amiodarone Hcl (Amiodarone Hcl) 100 Mg Tab 100 MG PO DAILY Atorvastatin (Lipitor) 10 Mg Tab 10 MG PO HS, TAB Docusate Sodium (Docusate Sodium) 100 Mg Cap 1 CAP PO BID PRN for Constipation for 7 Days, CAP Dornase Darnell (Pulmozyme) 2.5 Ml Inha 2.5 ML INH BID for 10 Days, INHA Ipratropium-Albuterol (Duoneb) 3 Ml Nebu 3 ML INH QIDR PRN for SOB/Wheezing for 30 Days, 1 Refill Levothyroxine Sodium (Synthroid) 100 Mcg Tab 100 MCG PO DAILYBB for 30 Days, #30 TAB 3 Refills Multivitamins/Minerals (Mvi With Minerals) Tab 1 TAB PO DAILY, TAB Oxygen (Oxygen) Gas 5 LITER XXX CONTINOUS Pantoprazole (Protonix) 40 Mg Tab 40 MG PO DAILY, #30 TAB Tamsulosin HCl (Tamsulosin HCl) 0.4 Mg Cap 0.4 MG PO HS for 30 Days, #30 CAP Warfarin Sodium (Warfarin Sodium) 5 Mg Tab 1 TAB PO DAILY for 90 Days, #90 TAB 3 Refills Discontinued Medications: Metoprolol Tartrate (Lopressor) (Lopressor) 25 Mg Tab 25 MG PO DAILY, TAB Admission Information HPI (per Admitting provider): Medical history significant for chronic resp failure 2 to obesity hypoventilation (CPAP noncompliance) sp tracheostomy, chronic systolic HF 2 to non-ischemic cardiomyopathy (EF 45%), SSS sp PPM/ hx DVT on coumadin, chronic anemia (baseline hemoglobin 9), hypothyroidism, history of MRSA, Pseudomonas, hx BPH sp indwelling Fitch. Recent confinement from about 2 weeks ago for acute on chronic hypoxemic hypercapnic respiratory failure secondary to Pseudomonas pneumonia. The patient completed Zosyn tx. Patient discharged home. Last few days, yesterday more labored breathing, patient coughing out junk as per , not really better after discharge from the hospital, hemoptysis noted. No fever, no chills. Patient brought to the Emergency Room. Noted to be very hypoxemic and lethargic. Copious tracheostomy secretions suctioned out. Physical Exam (per Admitting): PHYSICAL EXAMINATION: VITAL SIGNS: Blood pressure was noted to be 107/60, pulse rate 60, RR 31, temperature 37, O2 sats 86 on nonrebreather. SKIN: Pallor GENERAL: Noted to be lethargic. Chronically ill, morbidly obese. HEENT: Pale palpebral conjunctivae. Dry mucosa. NECK: Short neck, tracheostomy noted. CHEST: Decreased effort. HEART: RRR ABDOMEN: Some distention. NT EXTREMITIES: Venous stasis. No tenderness. NEUROLOGIC: Lethargic. Hospital Course Acute on Chronic Hypoxic Respiratory Failure: Resolved. Patient has obesity hypoventilation, s/p tracheostomy -Back to baseline with his breathing status -Appreciate pulmonology input -Continue inhalers, Pulmozyme, trach care -Plan for d/c to LTAC or Subacute facility -Oral intake is reasonable. Chronic Lymphedema: With chronic Ulceration at Right Leg as well as Left Thigh -Multiple organisms from wound culture, including pseudomonas -Patient was started on Vanc/Zosyn, then switched to Zosyn - now off of antibiotics -Currently afebrile, no sign of active/acute infection Depression: Stable. -Zoloft has been increased during this admission -Appreciate psych input -Need to monitor EKG periodically for QT prolongation Metabolic encephalopathy: Resolved. -Likely due to hypercapnia/respiratory failure as well as infection -CT head negative Urinary Retention: Has Chronic Indwelling Fitch -Follows with outpatient urology Idiopathic cardiomyopathy/chronic diastolic CHF: Stable & is euvolemic -Continue Lasix 40mg BID History of Atrial Flutter with RVR, Sick Sinus Syndrome s/p PPM: Heart rate is controlled -Continue cardiac medications, amiodarone and metoprolol -Continue Coumadin -INR os therapeutic Hypothyroidism: Stable.Continue levothyroxine DVT Prophylaxis: * Coumadin. GI Prophylaxis: Protonix 40 mg Code Status:m FULL NO CARDIOVERSION DISPOSITION: [place] that she is accepted to [facility]. Will confirm and do discharge paperwork accordingly. Total time spent on discharge = 45 minutes. This includes examination of the patient, discharge planning, medication reconciliation, and communication with other providers. Discharge Instructions Activity Recommendations Activity Limitations: resume your previous activity Driving or Machine Use: Is bed bound. . Current Hospital Diet Patient's current hospital diet: AHA Diet (Heart Healthy) Discharge Diet Recommended Diet: AHA Diet (Heart Healthy) Fluid Restriction: 1800 ml (7 cups)
[2016-05-04] MEDS ORDERED: NURSING VERBAL MED ORDER ONE (14:15)
[2016-05-04] MEDS ORDERED: TRAMADOL HCL 50 MG TAB ONE (14:16)
[2016-05-04] MEDS: WARFARIN SOD 7.5 MG TAB PO SCH (16:54)
[2016-05-04 17:00] VITALS: O2SAT 95
[2016-05-04] MEDS: TAMSULOSIN HCL 0.4 MG CAP PO SCH (20:27)
[2016-05-04] MEDS: ATORVASTATIN 10 MG TAB PO SCH (20:28)
[2016-05-04 23:13] VITALS: BP 120/68; PULSE 73; TEMP 36.8; O2SAT 95
[2016-05-05] MEDS: ALBUTEROL HFA 8 GM INHALER INH SCH ×3 (05:48→11:57)
[2016-05-05] MEDS: LEVOTHYROXINE 100 MCG TAB PO SCH (05:48)
[2016-05-05] MEDS: IPRATROPIUM BROMIDE HFA INHALER INH SCH ×3 (05:49→11:57)
[2016-05-05 07:41] VITALS: BP 129/77; PULSE 62; TEMP 36.6; O2SAT 96
[2016-05-05] MEDS: ARGININE EXTRA NUTRITION DRINK 1 BOX PO SCH (07:52)
[2016-05-05] MEDS: POTASSIUM CHLORIDE PWD 20 MEQ PACK PO SCH (07:54)
[2016-05-05] MEDS: MICONAZOLE NITRATE POWDER 43 GM EXT SCH (07:54)
[2016-05-05] MEDS: PANTOprazole SOD 40 MG TAB PO SCH (07:55)
[2016-05-05] MEDS: FUROSEMIDE 40 MG TAB PO SCH (07:55)
[2016-05-05] MEDS: METOPROLOL SUCC 25MG EXT REL TAB PO SCH (07:55)
[2016-05-05] MEDS: DOCUSATE SODIUM/SENNA 50/8.6MG TAB PO SCH (07:55)
[2016-05-05] MEDS: CEROVITE ADV FORMULA TAB PO SCH (07:55)
[2016-05-05] MEDS: LIDODERM (LIDOCAINE) PATCH 5% TD SCH ×2 (07:56→07:57)
[2016-05-05] MEDS: AMIODARONE 200 MG TAB PO SCH (07:56)
[2016-05-05] MEDS: SERTRALINE HCL 100 MG TAB PO SCH (07:57)
--- NOTE | 2016-05-05 10:55 | Progress Note ---
Internal Med Progress Note Date of Service: May 05, 2016. Provider Documentation: SUBJECTIVE: Patient is sitting in his bed and is in no apparent distress. Breathing comfortably. Denies any new change or complaint. Noted and reviewed the event of yesterday with ambulance and transportation due to which he could not leave. No other new change or complaint overnight. OBJECTIVE: Vital Signs-as noted below Examination: General Appearance: no apparent distress, + obese HEENT: Normocephalic, Eyes, Ears, Nose & Throat are normal looking. Neck: Tracheostomy present. Respiratory/Chest: lungs clear, normal breath sounds, no respiratory distress, no accessory muscle use Cardiovascular: regular rate, rhythm, no murmur Extremities: + pertinent finding (+chronic lymphedema) Lab data as noted below. ASSESSMENT & PLAN: Acute on Chronic Hypoxic Respiratory Failure: Resolved. Patient has obesity hypoventilation, s/p tracheostomy -Back to baseline with his breathing status -Appreciate pulmonology input -Continue inhalers, Pulmozyme, trach care -Plan for d/c to LTAC or Subacute facility -Oral intake is reasonable. Chronic Lymphedema: With chronic Ulceration at Right Leg as well as Left Thigh -Multiple organisms from wound culture, including pseudomonas -Patient was started on Vanc/Zosyn, then switched to Zosyn - now off of antibiotics -Currently afebrile, no sign of active/acute infection Depression: Stable. -Zoloft has been increased during this admission -Appreciate psych input -Need to monitor EKG periodically for QT prolongation Metabolic encephalopathy: Resolved. -Likely due to hypercapnia/respiratory failure as well as infection -CT head negative Urinary Retention: Has Chronic Indwelling Fitch -Follows with outpatient urology Idiopathic cardiomyopathy/chronic diastolic CHF: Stable & is euvolemic -Continue Lasix 40mg BID History of Atrial Flutter with RVR, Sick Sinus Syndrome s/p PPM: Heart rate is controlled -Continue cardiac medications, amiodarone and metoprolol -Continue Coumadin -INR os therapeutic Hypothyroidism: Stable.Continue levothyroxine DVT Prophylaxis: * Coumadin. GI Prophylaxis: Protonix 40 mg Code Status:m FULL NO CARDIOVERSION DISPOSITION: Hopefully discharge to a Rehab facility later today. Will discuss with freelance digital project manager to arrange a proper transportation as per the needs of the patient. Vital Signs: Date Time Temp Pulse Resp B/P Pulse Ox O2 Delivery O2 Flow Rate FiO2 05/05/16 08:30 Trach Collar 10.0 05/05/16 07:41 36.6 62 20 129/77 96 8.0 05/05/16 00:00 Trach Collar 10.0 05/04/16 23:13 36.8 73 18 120/68 95 Trach Collar 05/04/16 17:00 95 Trach Collar 10.0 05/04/16 12:19 36.5 60 20 95 Trach Collar 05/04/16 11:58 36.5 60 20 147/78 95 Trach Collar 10.0
[2016-05-06 13:53] LABS: HEPATITIS BE ANTIGEN TC 555 Nonreactive
== END 2016-05-05 15:10 | DRG 189 ==
LOC: ENRESERVTM → ENRESERVDT → EDBD 04:05 → C.EDB 04:06 → EDBEDREQ 07:31 → C.MSICU 07:36 → UNDOADMIN 07:36 → C.MSICU 04-01 18:55 → C.4E 04-01 18:55 → UNDODISIN 05-04 14:47
PROVIDERS: ADMIT Hospitalist; ATTEND Emergency Medicine
DX: J96.21 Acute and chronic respiratory failure with hypoxia (principal); G93.41 Metabolic encephalopathy; L89.893 Pressure ulcer of other site, stage 3; I50.43 Acute on chronic combined systolic (congestive) and diastolic (congestive) heart failure; E66.2 Morbid (severe) obesity with alveolar hypoventilation; N17.9 Acute kidney failure, unspecified; I42.9 Cardiomyopathy, unspecified; L03.317 Cellulitis of buttock; Z68.44 Body mass index [BMI] 60.0-69.9, adult; I48.92 Unspecified atrial flutter; I13.0 Hypertensive heart and chronic kidney disease with heart failure and stage 1 through stage 4 chronic kidney disease, or unspecified chronic kidney disease; D68.9 Coagulation defect, unspecified; R04.2 Hemoptysis; J96.22 Acute and chronic respiratory failure with hypercapnia; Z93.0 Tracheostomy status; E03.9 Hypothyroidism, unspecified; D63.8 Anemia in other chronic diseases classified elsewhere; F32.9 Major depressive disorder, single episode, unspecified; N18.3 Chronic kidney disease, stage 3 (moderate); I25.10 Atherosclerotic heart disease of native coronary artery without angina pectoris; Z51.5 Encounter for palliative care; B96.5 Pseudomonas (aeruginosa) (mallei) (pseudomallei) as the cause of diseases classified elsewhere; Z86.718 Personal history of other venous thrombosis and embolism; N40.1 Benign prostatic hyperplasia with lower urinary tract symptoms; Z91.19 Patient's noncompliance with other medical treatment and regimen; Z86.14 Personal history of Methicillin resistant Staphylococcus aureus infection; I48.91 Unspecified atrial fibrillation; Z95.0 Presence of cardiac pacemaker; E83.39 Other disorders of phosphorus metabolism; E87.6 Hypokalemia; R33.9 Retention of urine, unspecified; E87.5 Hyperkalemia; Z79.01 Long term (current) use of anticoagulants; I49.5 Sick sinus syndrome; F41.9 Anxiety disorder, unspecified; Z83.3 Family history of diabetes mellitus; Z82.49 Family history of ischemic heart disease and other diseases of the circulatory system

== ENCOUNTER → 2017-11-14 | Outpatient (CLI) | payer OTHER ==
[~2017-11-14] MED LIST changes: +ATOR10TA82 PO; -ATOR10TA88 PO; +IPRA-64 INH; -IPRASOL4 INH; -LCTX PO; -METO25TA56 PO; +SENN8.6T7 PO; +SERT1TAB92 PO; +TPRSR25 PO
[2017-11-14 09:28] LABS: BASO % 0.6 %; BASO ABS # 0.04 K/uL (0-0.2); EOS % 3.4 %; EOS ABS # 0.23 K/uL (0-0.5); HEMATOCRIT 32.1 % (42-52); HEMOGLOBIN 10.4 g/dL (14.0-18.0); IG# 0.03 K/uL (0.00-0.02); LYMPH % 17.4 %; LYMPH ABS # 1.18 K/uL (1.2-3.4); MEAN CELL VOLUME 90.9 fL (80-100); MEAN CORPUSCULAR HEMOGLOBIN 29.5 pg (25-34); MEAN CORPUSCULAR HGB CONC 32.4 g/dl (32-36); MEAN PLATELET VOLUME 8.8 fL (7.4-10.4); MONO % 13.6 %; MONO ABS # 0.92 K/uL (0.11-0.59); NEUT % 64.6 %; NEUT ABS # 4.37 K/uL (1.4-6.5); PLATELET COUNT 283 K/uL (130-400); RED CELL DISTRIBUTION WIDTH CV 14.8 % (11.5-14.5); WHITE BLOOD COUNT 6.77 K/uL (4.8-10.8)
[2017-11-14 09:36] LABS: INR 2.3 (0.9-1.1)
[2017-11-14 09:43] LABS: ALBUMIN 3.1 gm/dl (3.4-5.0); ALKALINE PHOSPHATASE 87 U/L (45-117); ALT/SGPT 19 U/L (12-78); AST/SGOT 18 U/L (15-37); BLOOD UREA NITROGEN 28 mg/dl (7-18); CARBON DIOXIDE 31 mmol/L (21-32); CREATININE 1.33 mg/dl (0.60-1.40); GLUCOSE 92 mg/dl (70-99); POTASSIUM 4.1 mmol/L (3.5-5.1); SODIUM 139 mmol/L (136-145); TOTAL PROTEIN 7.3 gm/dl (6.4-8.2)
== END ==
LOC: C.LABCC 08:07
PROVIDERS: ATTEND Internal Medicine
DX: I48.91 Unspecified atrial fibrillation (principal)

== ENCOUNTER → 2017-11-22 | Outpatient (CLI) | payer OTHER ==
[2017-11-22 08:28] LABS: HEMATOCRIT 30.8 % (42-52); HEMOGLOBIN 10.1 g/dL (14.0-18.0); MEAN CELL VOLUME 90.6 fL (80-100); MEAN CORPUSCULAR HEMOGLOBIN 29.7 pg (25-34); MEAN CORPUSCULAR HGB CONC 32.8 g/dl (32-36); MEAN PLATELET VOLUME 8.8 fL (7.4-10.4); PLATELET COUNT 284 K/uL (130-400); RED CELL DISTRIBUTION WIDTH CV 14.7 % (11.5-14.5); RED CELL DISTRIBUTION WIDTH SD 48.5 fL (36.4-46.3); WHITE BLOOD COUNT 5.05 K/uL (4.8-10.8)
[2017-11-22 08:35] LABS: INR 3.1 (0.9-1.1)
[2017-11-22 08:38] LABS: BLOOD UREA NITROGEN 21 mg/dl (7-18); CALCIUM 8.9 mg/dl (8.5-10.1); CARBON DIOXIDE 31 mmol/L (21-32); CREATININE 1.23 mg/dl (0.60-1.40); GLUCOSE 86 mg/dl (70-99); POTASSIUM 4.1 mmol/L (3.5-5.1); SODIUM 138 mmol/L (136-145)
--- NOTE | 2017-11-30 12:38 | CODING QUERY NO DIAGNOSIS ---
TREATMENT RENDERED WITHOUT A DIAGNOSIS To promote full compliance with coding requirements relating to patient care, physician participation is requested in all cases of dimmer board operator uncertainty. Please assist us with providing a diagnosis/symptom for the test(s) below: A diagnosis/symptom was not documented on your Order. A valid diagnosis/symptom is required to bill all insurances. Please remember that we are unable to code a diagnosis of rule out, probable, possible, questionable, or suspected. Tests that require a diagnosis: DOS: 11/22/17 (Attached order is missing diagnosis) * Partial Renal DIAGNOSIS: * CBC DIAGNOSIS: * Prothrombin Time DIAGNOSIS: Provider Signature: Date: Thank you Ale Gillis Health Information Management Once completed, please kindly fax back to [phone] For questions please call [phone]
== END ==
LOC: C.LABCC 07:57
PROVIDERS: ATTEND Internal Medicine

== ENCOUNTER → 2017-11-28 | Outpatient (CLI) | payer OTHER ==
[2017-11-28 08:30] LABS: INR 2.5 (0.9-1.1)
== END ==
LOC: C.LABCC 08:05
PROVIDERS: ATTEND Internal Medicine
DX: I48.91 Unspecified atrial fibrillation (principal)

== ENCOUNTER 2018-11-29 09:00 | Inpatient (IN) ==
[2018-11-29] MEDS ORDERED: MIDAZOLAM HCL 5 MG/ML VIAL ONE (09:16)
--- NOTE | 2018-11-29 09:35 | XRay Report ---
SINGLE VIEW CHEST CLINICAL HISTORY: Dyspnea. FINDINGS: 2 AP, portable, upright chest radiographs are compared to study dated 04/21/2016 and correla howard with chest CT dated 03/29/2016. The examination is degraded by portable technique and patient rot ation. A tracheostomy is in place. A 2-lead cardiac pacemaker is unchanged in position and partially obscures the left lower chest. The heart is enlarged and there is atherosclerotic calcification of th e thoracic aorta. The pulmonary vasculature is mildly congested. There is chronic elevation of the ri ght hemidiaphragm and bibasilar airspace opacities. Small pleural effusions are suspected. No pneumot horax is seen. The skeletal structures are osteopenic. The bony thorax is grossly intact. IMPRESSION: 1. Cardiomegaly and cardiac pacemaker with evidence of mild congestive failure. 2. Small pleural effusions are suspected. 3. A tracheostomy is in place. 4. Bibasilar airspace opacities likely represent atelectasis. Clinical correlation will be required. Electronically signed by: Alex Pena M.D. 11/29/2018 9:34 AM
[2018-11-29 10:01] LABS: Basophils # (auto) 0.01 K/uL (0-0.2); Basophils % (auto) 0.1 %; Eosinophils # (auto) 0.02 K/uL (0-0.5); Eosinophils % (auto) 0.1 %; Hematocrit (blood only) 31.5 % (42-52); Hemoglobin 10.3 g/dL (14.0-18.0); Immature Granulocytes % (auto) 0.6 %; Lymphocytes # (auto) 0.62 K/uL (1.2-3.4); Lymphocytes % (auto) 3.8 %; Mean Corpuscular Hemoglobin 26.3 pg (25-34); Mean Corpuscular Hgb Conc 32.7 g/dL (32-36); Mean Corpuscular Volume 80.4 fL (80-100); Mean Platelet Volume 8.7 fL (7.4-10.4); Monocytes # (auto) 0.68 K/uL (0.11-0.59); Monocytes % (auto) 4.2 %; Neutrophils % (auto) 91.2 %; Platelet Count 408 K/uL (130-400); RDW Coefficient of Variation 16.6 % (11.5-14.5); RDW Standard Deviation 48.9 fL (36.4-46.3); Red Blood Count 3.92 M/uL (4.7-6.1); White Blood Count 16.13 K/uL (4.8-10.8)
[2018-11-29] MEDS ORDERED: SODIUM CHLORIDE 0.9% 1000ML 1,000 ML IV ONE ×2 (10:21→11:45)
[2018-11-29] MEDS ORDERED: PIPERACILLIN/TAZOBACTAM 4.5 GM/120 ML BAG IV ONE (10:23)
[2018-11-29] MEDS ORDERED: PIPERACILL/TAZOBAC CONSULT ACTIVE PRN (10:23)
[2018-11-29] MEDS ORDERED: VANCOMYCIN CONSULT ACTIVE PRN (10:24)
[2018-11-29] MEDS ORDERED: VANCOMYCIN HCL MG in SODIUM CHLORIDE 0.9% 500 ML IV ONE (10:24)
[2018-11-29 10:25] LABS: Prothrombin Time 70.3 Seconds (9.0-12.0)
[2018-11-29] MEDS ORDERED: VANCOMYCIN HCL 2,750 MG in SODIUM CHLORIDE 0.9% 500 ML IV SCH (10:30)
[2018-11-29 10:32] LABS: Alanine Aminotransferase 10 U/L (12-78); Albumin Globulin Ratio 0.3 (0.9-2); Albumin Level 1.8 gm/dl (3.4-5.0); Alkaline Phosphatase 86 U/L (45-117); Aspartate Aminotransferase 10 U/L (15-37); BUN Creatinine Ratio 11.3 (10-20); Bilirubin,Total 1.1 mg/dl (0.2-1); Blood Urea Nitrogen 70 mg/dl (7-18); Calcium 8.7 mg/dl (8.5-10.1); Carbon Dioxide 27 mmol/L (21-32); Chloride 93 mmol/L (98-107); Creatinine Clr Calc Pharmacy 20.9 ml/min; Est GFR (African American) 10.2; Est GFR (Non-African American) 8.8; Globulin 5.3 gm/dl (2.5-4.0); Glucose 70 mg/dl (70-99); Magnesium 2.5 mg/dl (1.8-2.4); Partial Thromboplastin Time 55.5 Seconds (21.0-31.0); Potassium 5.8 mmol/L (3.5-5.1); Sodium 132 mmol/L (136-145); Total Protein 7.1 gm/dl (6.4-8.2); Troponin I < 0.015 ng/ml (0-0.045)
[2018-11-29] MEDS ORDERED: VANCOMYCIN HCL 2,750 MG in SODIUM CHLORIDE 0.9% 500 ML IV STA (11:30)
[2018-11-29] MEDS ORDERED: PHYTONADIONE 5 MG TAB PO STA ×2 (12:09→12:10)
--- NOTE | 2018-11-29 12:15 | History & Physical Report ---
Date of Service November 29, 2018 Assessment & Plan (1) Acute respiratory failure with hypoxia: (2) Pneumonia: -Admit to ICU -Continue trach, supplemental O2 as needed, currently requiring oxygen mask -Continue on Zosyn, Levaquin, checking MRSA nasal swab and may need to add on Vanco -WBC elevated at 16,000 with left shift -Follow blood cultures -Follow sputum culture -Pulmonary toilet with duonebs, Mucinex, Tessalon Perles, flutter -CXR reviewed-difficult to thoroughly assess due to body habitus, however it is likely that the patient has multifocal pneumonia with history, x-ray also showing atelectasis at the bases bilaterally, small pleural effusions at bases bilaterally---Consider repeat CXR in am -Tracheostomy care Qshift -CT of the chest would have been obtained to further assess however the patient's body habitus does not allow us to obtain this imaging. Patient is unlikely to have a PE with supratherapeutic INR = 8. -Patient has had poor oral intake times last 2 days -Received 2L NSS in the ER, with minimal improvement in BP, starting Levophed infusion -ICU consulted, discussed at bedside with Mario CAUSEY (3) Obesity hypoventilation syndrome: -Likely contributing to patient's poor respiratory status (4) Asthma: -History of such (5) H/O tracheostomy: -S/P pacemaker insertion in 2016 -Tracheostomy care (6) Acute renal failure: -Creatinine baseline appears to be around 1.5, CR = 6.23, BUN = 70 -Follow a.m. CBC -S/P 2L NSS, patient with history of systolic CHF so will monitor volume status closely, caution with small bilateral pleural effusions present on CXR at time of admission and acute respiratory failure. (7) Atrial fibrillation and flutter: -Chronic, holding Xarelto -Appears to be rate controlled currently, holding beta-blockade due to hypotension, monitor for rebound tachycardia (8) Supratherapeutic INR: -As above (9) Status post placement of cardiac pacemaker: -Completed in 2016, follows with Dr. Baeza as an outpatient (10) Heart failure, systolic, due to idiopathic cardiomyopathy: -Chronic systolic CHF in the setting of pneumonia -NT-Pro-BNP elevated at time of admission -Patient hypotensive likely secondary to sepsis from pneumonia-patient requiring pressors to maintain BP, no diuretics at this time -Hold Lasix, Toprol succinate 25 mg daily -Allow ASA 81 mg starting tomorrow (11) Hx MRSA infection: -Check MRSA nasal swab (12) History of group B Streptococcus (GBS) infection: - Hx of such - Previously followed with Dr. Morales in July, August and September of 2017 for recurrent infection - Wound consult for area on R calf - Culture wound (13) DVT of lower extremity (deep venous thrombosis): -History of such -Holding Xarelto (14) Gait disorder: -Chronic -PT/OT consults (15) Hyponatremia: -Sodium 132 upon admission, likely to improve with volume resuscitation follow a.m. CMP (16) Hyperkalemia: -Potassium elevated at 5.8, likely to improve with fluid resuscitation, follow a.m. CMP (17) KEARA (obstructive sleep apnea): -Chronic (18) Venous insufficiency: -Chronic -Wound consult for right calf wound -Chronic venous stasis changes over bilateral lower extremities (19) Morbid obesity with BMI of 60.0-69.9, adult: - Diet and exercise will need to be encouraged upon discharge (20) DVT prophylaxis: -Teds unable to be placed on the patient's legs, - Coumadin on hold currently for supratherapeutic INR, resume once INR improves Disposition: Patient from [facility], likely to remain in the hospital for 2 days, CM consulted for placement/discharge History of Present Illness Primary Care Provider: [facility] This is a 63-year-old male with PMHx of A. fib/aflutter on Coumadin, hx of DVT, chronic systolic CHF, tachybradycardia syndrome pacemaker implantation in 2015, during that same time time he required tracheotomy for acute respiratory decom pensation, morbid obesity with BMI of 60.3, HTN, HLD, hypothyroidism, history of invasive group B strep infections in July, August and September 2017, gait disorder, edema, depression, anemia of chronic disease who presents from [facility] with acute respiratory failure. Patient notes his symptoms have been coming on for about 4 to 5 days, increased work of breathing with minimal movement, he does not walk at baseline, increased nausea with dry heaves, and limited p.o. intake. The patient complains of lower abdominal pain, soreness, which appears to have been going on for some time now. He also notes that he has not been urinating much in the past day. Patient is found to be in multiorgan failure, multifocal pneumonia, acute renal failure, hypotensive with blood pressure of 90/50 s/p 2 L NSS in the ER WBC = 16 K, with left shift, NT proBNP is 7430, creatinine 6.23, BUN 70, hyponatremic, hyperkalemic Supratherapeutic INR = 8.0 Allergies Allergy/AdvReac Type Severity Reaction Status Date / Time cefepime Allergy Intermediate RASH Verified 11/29/18 10:01 latex Allergy Intermediate DERMITITIS Verified 11/29/18 10:01 aztreonam Allergy Mild RASH Verified 11/29/18 10:01 Home Medications Home Medications Medication Instructions Recorded Confirmed Type Calmoseptine 1 applic TOPICAL QID PRN 12/30/17 11/29/18 History Fleet Enema 118 ml WV DAILY PRN 12/30/17 11/29/18 History acetaminophen 325 mg PO Q6H PRN 12/30/17 11/29/18 History acetaminophen 650 mg PO DAILY PRN 12/30/17 11/29/18 History albuterol sulfate 3 ml INHALATION QID 12/30/17 11/29/18 History bisacodyl 10 mg WV DAILY PRN 12/30/17 11/29/18 History chlorhexidine gluconate 15 ml PO BID 12/30/17 11/29/18 History ferrous sulfate 325 mg PO DAILY 12/30/17 11/29/18 History furosemide 40 mg PO BID 12/30/17 11/29/18 History magnesium hydroxide [Milk of 30 ml PO HS PRN 12/30/17 11/29/18 History Magnesia] metoprolol succinate 25 mg PO DAILY 12/30/17 11/29/18 History nystatin 1 applic TOPICAL DAILY 12/30/17 11/29/18 History pantoprazole 40 mg PO DAILY 12/30/17 11/29/18 History simvastatin 10 mg PO PM 12/30/17 11/29/18 History tamsulosin 0.4 mg PO DAILY 12/30/17 11/29/18 History warfarin 5 mg PO Q OTHER DAY 01/10/18 11/29/18 History warfarin 7.5 mg PO Q OTHER DAY 01/10/18 11/29/18 History aspirin 81 mg PO DAILY 08/25/18 11/29/18 History sertraline 75 mg PO DAILY 08/25/18 11/29/18 History levothyroxine 100 mcg PO DAILY 11/29/18 11/29/18 History Past Med/Surg History Medical History Hyperkalemia Hyponatremia Gait disorder History of group B Streptococcus (GBS) infection Acute respiratory failure with hypoxia Pneumonia (Acute) Acute renal failure (Acute) Heart failure, systolic, due to idiopathic cardiomyopathy (Chronic) "echo 12/01/15 - EF 35-39%, abnormal diastolic dysfunction" KEARA (obstructive sleep apnea) (Chronic) Venous insufficiency (Chronic) Hx MRSA infection (Chronic) "02/2016 in sputum" Obesity hypoventilation syndrome Atrial fibrillation and flutter (Chronic) Indwelling Davey catheter present Pacemaker (Acute) 2011 - Tracheostomy tube present (Acute) 2015 - 05/13 obesity hypoventilation syndrome Ventral hernia (Acute) Anemia Asthma Atrial fibrillation on warfarin BPH (benign prostatic hyperplasia) 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 catheter Bacteremia due to group B Streptococcus 09/2017 - requiring indefinite oral suppressive antibiotic therapy Cardiomyopathy Chronic edema BLLE Chronic indwelling Davey catheter Chronic respiratory failure Chronic venous stasis Congestive heart failure Generalized weakness History of DVT (deep vein thrombosis) Hyperlipidemia Lymphedema Major depressive disorder Morbid obesity Obesity hypoventilation syndrome On home oxygen therapy Recurrent UTI Sleep apnea Surgical History Status post placement of cardiac pacemaker H/O tracheostomy (Chronic) History of bronchoscopy w/ trach change 01/2018 [facility] History of cholecystectomy History of hernia repair Family History Other No significant family history Social History Preferred Language: [place] Communication Ability: Effective 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 Beliefs That Will Affect Care: None Current Living Situation: Assisted Current Living Situation Comment: resident at [facility] Other Information That Helps Us Care for You: Yes Feels Safe at Home: Yes Safety Concerns: Feels Safe At This Time Smoking Status: Never smoker Hx Alcohol Use: No Hx Substance Use: No Review of Systems Review of Systems: Constitutional: + Fever, + sweats and intermittent chills Eyes: No diplopia, no worsening or blurred vision ENT: normal hearing, no trouble swallowing Respiratory: + Shortness of breath with minimal exertion, + tracheostomy, + requiring increased O2 as he normally doesn't wear any supplemental o2 Cardiovascular: No chest pain, tightness or palpitations Abdomen: + soreness + nausea, no vomiting, diarrhea or constipation Musculoskeletal: No joint pain, calf pain, + increased LE swelling Neurologic: No weakness, numbness/tingling, or balance problems, does not ambulate at baseline Psychiatric: + depression well controlled on medication Skin: No rash or itch Physical Exam Physical Exam: General: awake, alert, no apparent distress, morbidly obese Head: Normocephalic, atraumatic ENT: PERRL, EOMI, no pharyngeal exudate, mucous membranes moist Chest: + Tracheostomy, getting humidified oxygen via OxiMax over trach, coarse breath sounds throughout, + crackles bibasilarly Cardiac: Irregularly irregular, rate controlled, + faint MCKENZIE, JVD not assessed due to body habitus normal peripheral pulses, good capillary refill Abdominal: NABS x 4 quadrants, soft, +obese, nondistended, + slightly tender in lower abd, +panis with excoriated skin in folds, no rebound, guarding Extremities: + Lymphedema BLE, chronic venous stasis changes over BLE, 2+ peripheral edema, no erythema, right calf with dime sized wound, calfs nontender to palpation Psych: Normal mood and affect Neuro: AAO x 3, speech is clear, no peripheral sensory deficits Skin: no rash or erythema Results & Data Vital Signs (Past 12 Hours) Vital Signs Temp Pulse Resp BP Pulse Ox 11/29/18 12:03 70 25 H 87/46 L 92 11/29/18 12:01 72 24 67/55 L 96 11/29/18 11:45 71 35 H 90/47 L 96 11/29/18 11:42 70 33 H 82/40 L 96 11/29/18 11:36 70 35 H 82/43 L 87 L 11/29/18 11:33 67 24 80/53 L 91 11/29/18 11:31 73 35 H 86/42 L 90 11/29/18 11:16 68 28 H 103/38 L 97 11/29/18 11:01 73 36 H 111/60 96 11/29/18 10:45 72 20 113/63 97 11/29/18 10:34 69 32 H 93/53 L 98 11/29/18 10:21 71 39 H 96/43 L 98 11/29/18 10:03 73 37 H 85/46 L 98 11/29/18 10:02 73 38 H 88/48 L 98 11/29/18 09:30 97 11/29/18 09:28 76 33 H 95/48 L 93 11/29/18 09:12 91 11/29/18 09:08 37.5 C 75 36 H 90/45 L 91 Diagnostic Findings SINGLE VIEW CHEST CLINICAL HISTORY: Dyspnea. FINDINGS: 2 AP, portable, upright chest radiographs are compared to study dated 04/21/2016 and correlated with chest CT dated 03/29/2016. The examination is degraded by portable technique and patient rotation. A tracheostomy is in place. A 2-lead cardiac pacemaker is unchanged in position and partially obscures the left lower chest. The heart is enlarged and there is atherosclerotic calcification of the thoracic aorta. The pulmonary vasculature is mildly congested. There is chronic elevation of the right hemidiaphragm and bibasilar airspace opacities. Small pleural effusions are suspected. No pneumothorax is seen. The skeletal structures are osteopenic. The bony thorax is grossly intact. IMPRESSION: 1. Cardiomegaly and cardiac pacemaker with evidence of mild congestive failure. 2. Small pleural effusions are suspected. 3. A tracheostomy is in place. 4. Bibasilar airspace opacities likely represent atelectasis. Clinical correlation will be required. ECG Additional Comments: 29-NOV-2018 09:10:53 [facility]-EDSTAT ROUTINE RETRIEVAL Accelerated Junctional rhythm Nonspecific ST abnormality Abnormal ECG When compared with ECG of 23-APR-2016 07:56, Junctional rhythm has replaced Atrial-paced rhythm Confirmed by Chencho Cummings ([id number]) on 11/29/2018 10:10:47 AM 25mm/s 10mm/mV 150Hz 9.0.8 12SL 241 GERALD: 16 Referred by: REFERRED SELF Confirmed By: Chencho Bermudez. rate 75 BPM WV interval * ms QRS duration 96 ms QT/QTc 386/431 ms P-R-T axes * 22 3 Code Status & VTE Plan VTE Prophylaxis Plan VTE Prophylaxis will be ordered: Yes Critical Care Time Critical Care Time: Yes Total Critical Care Time: 45 Supervising Physician Co-Signing Physician Notes Patient seen and examined with Aditi SOLANO. I agree with her HPI, history, ROS, physical exam and A/P. Case was discussed with her as well as the duggan points in treatment. I personally reviewed the lab work and imaging and other diagnostic studies. I discussed the case with ICU team. Patient doing better in the ICU, he is resting comfortably, breathing comfortably. His at the bedside, updated her, all questions answered. - Septic shock: unclear source, could be UTI vs pneumonia vs intra-abdominal broad spectrum antibiotics with Zosyn and Vanco follow up on blood and urine cultures continue on Levophed, titrate down as allowed volume resuscitated with 4 liters total of NSS - ADAM: likely prerenal and early ATN, davey placed for adequate UO follow BMP closely, little UO thus far - Hyperkalemia: treated with calcium gluconate and Dextrose/Insulin - Supratherapeutic INR at 8.8: getting vitamin K and FFP - Chronic heart failure: monitor volume status closely PG Care Time/CCT Total # of Minutes Spent Total Time Spent with Patient: Total time spent is greater than 50% in coordination of care (as documented) at patient's floor/unit and/or counseling patient: Critical Care Time: Yes Total Critical Care Time: 45 (1) Acute renal failure Acute renal failure type: unspecified Qualified Code(s): N17.9 - Acute kidney failure, unspecified (2) Pneumonia Laterality: bilateral Lung location: lower lobe of lung Pneumonia type: due to unspecified organism Qualified Code(s): J18.1 - Lobar pneumonia, unspecified organism
[2018-11-29] MEDS: NOREPINEPHRINE BIT INJ 8 MG in DEXTROSE 5% 500 ML IV SCH (12:52)
[2018-11-29 13:14] LABS: iSTAT Allen Test Pass; iSTAT Art Bld Gas pCO2 Correct 39 mmHg (35-46); iSTAT Arterial Blood Gas HCO3 23 meg/L (19-24); iSTAT Arterial Blood Gas pCO2 39 mmHg (35-46); iSTAT Arterial Blood Gas pH 7.39 (7.35-7.45); iSTAT Arterial Blood Gas pO2 97 mmHg (80-95); iSTAT Arterial Blood Gas pO2 C 96; iSTAT Carbon Dioxide 25 mEq/l (24-31); iSTAT FiO2 50 %; iSTAT Site L Radial
--- NOTE | 2018-11-29 13:57 | XRay Report ---
KUB CLINICAL HISTORY: Abdominal pain. COMPARISON STUDY: CT of the abdomen and pelvis February 17, 2016. FINDINGS: Moderate amount of stool within the right colon is noted. There is mild colonic distention without convincing evidence for a bowel obstruction. No dilated small bowel loops are noted. There is blunting of left costophrenic angle. IMPRESSION: Mild colonic distention without convincing evidence for a bowel obstruction. Electronically signed by: Daquan Chapman M.D. 11/29/2018 1:55 PM
[2018-11-29] MEDS ORDERED: SODIUM CHLORIDE 0.9% 250 ML IV PRN ×2 (13:58→14:20)
[2018-11-29] MEDS ORDERED: ICU PROTOCOL FOR HYPERGLYCEMIA PRN (14:09)
--- NOTE | 2018-11-29 14:11 | Critical Care Consultation ---
Date of Consultation November 29, 2018 Assessment & Plan (1) Sepsis associated hypotension: Reason Critically Ill: 63-year-old male presents from custodial facility with history long-term tracheostomy, inmobility, OHS, venous stasis, CHF admitted for septic shock, renal failure, supratherapeutic INR. Neuro - [facility] ICU: Negative Cardiac - CHFlast study from 2 years ago, reobtain and follow-up cardiac ultrasound on this admission -Bedside POC ultrasound appeared that patient had preserved ejection fraction -We will hold home dose Lasix for now as patient is hypotensive and septic History of a flutterpatient currently paced rhythm on monitor and, has history of a flutter and was on Coumadin -Currently holding Coumadin and transfusing with FFP and vitamin K as patient had INR of 8 Septic shockmultiple sources possible as patient has multiple pressure ulcers, history of multidrug resistant Pseudomonas, and UTI -Procalcitonin elevated to 8.6, lactic acid elevated but now cleared with IV fluid resuscitation, blood cultures and urine culture pending -MRSA PCR negative -Currently requiring levo fed drip -We will continue current antibiotic therapy with Vanco and Zosyn Respiratory - Hypoxic respiratory failurelikely mixed OHS versus CHF - patient is on trach collar requiring 50% FiO2, patient's baseline O2 is 5 L -Patient has long-term tracheostomy, will use ventilator if indicated -Chest x-ray shows bibasilar opacities and small pleural effusions bila terally -Holding Lasix for now for hypotension ADAM -We will continue nebs GI - Abdominal tendernessKUB negative for obstruction -Alkaline phosphatase and LFTs negative -Continue bowel regimen RENAL/LYTES - Acute renal failurepresents with creatinine 6, likely due to hypotension from sepsis -Renal ultrasound limited due to body habitus, does suggest chronic renal disease -Creatinine improvement with IV fluid resuscitation, will continue -We will monitor with routine BMPs -Consult nephrology, if unimproved patient may need dialysis in the near future -Avoid nephrotoxins Hyperkalemiagiven calcium gluconate injection and 10 insulin in D50 -Potassium has improved, will monitor with routine BMPs -No current PVCs, recheck an EKG - Chronic Davey, changed in emergency department ENDO - No history of diabetes or thyroid disease ICU hypoglycemic protocol HEME - H&H stable, monitor routine CBCs Supratherapeutic INR-INR 8 on admission -Given IV vitamin K 5 mg -Transfuse 5 units of FFP -We will trend INRs -No current signs of bleeding ID - History resistant Pseudomonas, will continue vancomycin and Zosyn for sepsis of unknown source Urine and blood cultures pending LINES/IV ACCESS - Peripheral IVs, Davey DVT PROPHYLAXIS - Heparin subcu I have personally spent 60 minutes of critical care time in the direct management of this patient. This is a life/limb threatening event. This includes time spent evaluating patient, direct bedside care, chart review, placing orders, interpretation of diagnostic studies, discussion with consultants, patient, and family members, as well as other required patient management activities. This time is exclusive of all separately billable procedures, and teaching time and separate from and in addition to any other critical care service time. Thank you for allowing us to participate in the care of this patient. Please refer to my attending physician's documentation for any further recommendations. (2) Acute renal failure: (3) Acute respiratory failure with hypoxia: (4) History of group B Streptococcus (GBS) infection: (5) Hyperkalemia: (6) Supratherapeutic INR: (7) Obesity hypoventilation syndrome: (8) Atrial fibrillation and flutter: Supervising Physician Co-Signing Physician Notes Patient seen and examined with Mario SAWYER. 63-year-old male with past medical history of atrial fibrillationflutter on Coumadin history of DVT and history of CHF who presented to the emergency department from a custodial facility due to increasing lethargy, hypotension and abdominal pain. In the emergency room, patient was found to be hypotensive and received 2 L of fluids. He was also found to be acutely renal failure. Impression: -Septic shock secondary to possible urinary tract infection versus other -Acute hypoxemic respiratory failure with a history of a tracheostomy and possible healthcare associated pneumonia -Acute kidney injury -Hyperkalemia -Supratherapeutic INR on Coumadin -Acute on chronic diastolic CHF -Obesity hypoventilation syndrome Summary plan: His source of sepsis is unclear at this time. He has a history of resistant Enterobacter and Pseudomonas. He has multiple possible sources of infection. He complains of abdominal pain. KUB did not demonstrate any obvious perforation. There is mild dilation of the colon. He denies any diarrhea. He does endorse chronic constipation and this may be the cause of some of his abdominal pain. The urine analysis does indicate a possible UTI. We will cover him broadly with vancomycin and Zosyn. His prior cultures were sensitive to Zosyn. He does have significant renal failure and I believe he is under resuscitated at this time. We are giving him an additional 2 L of fluid. He is on low-dose levo fed at present. We are having IV team placed and endurance catheter. If needed we will place a central line. He currently has a supratherapeutic INR and he is receiving IV vitamin K. We will also give him 4 units of FFP should he require central line. We should be careful with over resuscitating him with fluids because he is at significant risk for worsening heart failure. We will go ahead and treat his hyperkalemia with D50 and insulin. We will give him one-time dose of calcium gluconate 1 g. We will obtain a repeat EKG. Obtain BMPs every 8 for now. I suspect that his renal function will improve with more fluids. He likely has a combination of ischemic ATN and prerenal azotemia. - History of Present Illness Attending Physician: Miguel Graves DO History of Present Illness 63-year-old male presents from [place] with acute respiratory distress. He has a significant past medical history including OHS with long-term tracheostomy, resistant pseudomonal respiratory infections, CHF, a flutter on Coumadin, obesity, lower extremity lymphedema. He was found to be hypotensive in the emergency department and had a elevated lactic acid and procalcitonin. He was also found to be in acute renal failure and had elevated creatinine and was hyperkalemic. He is currently requiring 50% FiO2 to trach collar and now denies shortness of breath. He states that he has been nauseated and dry heaving for the past few days with little to no p.o. intake. He was given 2 boluses of crystalloid in the ED. Blood pressures temporarily improved but he again became hypotensive and required vasopressors. He is currently on levo fed drip. Treating for sepsis, blood cultures and urine culture pending. Patient has multiple possibilities for sources as he currently has UTI, probable pneumonia, multiple pressure ulcers. We will continue to treat in ICU for now. Patient denies headache, dizziness, syncope, chest palpitations, chest pain, diarrhea. Does report 5-day history of nausea with dry heaving along with recent shortness of breath. Also reports mild abdominal tenderness with palpation in all 4 quadrants. Allergies Allergy/AdvReac Type Severity Reaction Status Date / Time cefepime Allergy Intermediate RASH Verified 11/29/18 10:01 latex Allergy Intermediate DERMITITIS Verified 11/29/18 10:01 aztreonam Allergy Mild RASH Verified 11/29/18 10:01 Home Medications Home Medications Medication Instructions Recorded Confirmed Type Calmoseptine 1 applic TOPICAL QID PRN 12/30/17 11/29/18 History Fleet Enema 118 ml MT DAILY PRN 12/30/17 11/29/18 History acetaminophen 325 mg PO Q6H PRN 12/30/17 11/29/18 History acetaminophen 650 mg PO DAILY PRN 12/30/17 11/29/18 History albuterol sulfate 3 ml INHALATION QID 12/30/17 11/29/18 History bisacodyl 10 mg MT DAILY PRN 12/30/17 11/29/18 History chlorhexidine gluconate 15 ml PO BID 12/30/17 11/29/18 History ferrous sulfate 325 mg PO DAILY 12/30/17 11/29/18 History furosemide 40 mg PO BID 12/30/17 11/29/18 History magnesium hydroxide [Milk of 30 ml PO HS PRN 12/30/17 11/29/18 History Magnesia] metoprolol succinate 25 mg PO DAILY 12/30/17 11/29/18 History nystatin 1 applic TOPICAL DAILY 12/30/17 11/29/18 History pantoprazole 40 mg PO DAILY 12/30/17 11/29/18 History simvastatin 10 mg PO PM 12/30/17 11/29/18 History tamsulosin 0.4 mg PO DAILY 12/30/17 11/29/18 History warfarin 5 mg PO Q OTHER DAY 01/10/18 11/29/18 History warfarin 7.5 mg PO Q OTHER DAY 01/10/18 11/29/18 History aspirin 81 mg PO DAILY 08/25/18 11/29/18 History sertraline 75 mg PO DAILY 08/25/18 11/29/18 History levothyroxine 100 mcg PO DAILY 11/29/18 11/29/18 History Patient History Medical History Hyperkalemia Hyponatremia Gait disorder History of group B Streptococcus (GBS) infection Acute respiratory failure with hypoxia Pneumonia (Acute) Acute renal failure (Acute) Heart failure, systolic, due to idiopathic cardiomyopathy (Chronic) "echo 12/01/15 - EF 35-39%, abnormal diastolic dysfunction" KEARA (obstructive sleep apnea) (Chronic) Venous insufficiency (Chronic) Hx MRSA infection (Chronic) "02/2016 in sputum" Obesity hypoventilation syndrome Atrial fibrillation and flutter (Chronic) Indwelling Davey catheter present Pacemaker (Acute) 2012 - SSS Tracheostomy tube present (Acute) 2015 - 05/13 obesity hypoventilation syndrome Ventral hernia (Acute) Anemia Asthma Atrial fibrillation on warfarin BPH (benign prostatic hyperplasia) 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 catheter Bacteremia due to group B Streptococcus 09/2017 - requiring indefinite oral suppressive antibiotic therapy Cardiomyopathy Chronic edema BLLE Chronic indwelling Davey catheter Chronic respiratory failure Chronic venous stasis Congestive heart failure Generalized weakness History of DVT (deep vein thrombosis) Hyperlipidemia Lymphedema Major depressive disorder Morbid obesity Obesity hypoventilation syndrome On home oxygen therapy Recurrent UTI Sleep apnea Surgical History Status post placement of cardiac pacemaker H/O tracheostomy (Chronic) History of bronchoscopy w/ trach change 01/2018 [facility] History of cholecystectomy History of hernia repair Family History Other No significant family history Social History Preferred Language: Thai Communication Ability: Effective Precision Assembler Required: No Beliefs That Will Affect Care: None Current Living Situation: Longterm Current Living Situation Comment: resident at [facility] Other Information That Helps Us Care for You: Yes Feels Safe at Home: Yes Safety Concerns: Feels Safe At This Time Smoking Status: Never smoker Hx Alcohol Use: No Hx Substance Use: No Review of Systems Review of Systems: All systems reviewed & are unremarkable except as noted in HPI & below Physical Exam Eyes: PERRL, conjunctivae normal, anicteric sclerae ENMT: external ear and nose normal, oropharynx normal Neck: trachea midline, no thyromegaly Respiratory: Patient has tracheostomy, symmetrical chest wall movement, lungs diminished bilaterally in bases with coarse crackles bilaterally Cardiovascular: Heart Sounds: normal S1 and normal S2 Vessels: no JVD Paced rhythm, bilateral lower extremity edema Gastrointestinal (Abdomen): Inspection/Auscultation: + abdomen distended, normal bowel sounds and + abdominal edema Percussion/Palpation: + abdomen tender; abdomen not firm Skin: + skin tightening, + wound and + dry skin Neurologic: PERRL, EOMI, accommodation nl, no face palsy, no dysarthria Psychiatric: A+Ox3, euthymic affect Genitourinary: Indwelling Davey catheter present Results & Data Vital Signs (Past 12 Hours) Vital Signs Temp Pulse Resp BP Pulse Ox 11/29/18 14:01 67 27 H 99/51 L 94 11/29/18 14:00 68 32 H 99/51 L 93 11/29/18 13:55 71 22 105/56 L 92 11/29/18 13:45 69 22 90 11/29/18 13:30 67 95/88 L 96 11/29/18 13:15 65 113/51 L 99 11/29/18 13:09 61 125/53 L 96 11/29/18 13:01 64 28 H 106/50 L 99 11/29/18 12:47 36.9 C 62 30 H 75/48 L 97 11/29/18 12:16 69 34 H 97/40 L 96 11/29/18 12:03 70 25 H 87/46 L 92 11/29/18 12:01 72 24 67/55 L 96 11/29/18 11:45 71 35 H 90/47 L 96 11/29/18 11:42 70 33 H 82/40 L 96 11/29/18 11:36 70 35 H 82/43 L 87 L 11/29/18 11:33 67 24 80/53 L 91 11/29/18 11:31 73 35 H 86/42 L 90 11/29/18 11:16 68 28 H 103/38 L 97 11/29/18 11:01 73 36 H 111/60 96 11/29/18 10:45 72 20 113/63 97 11/29/18 10:34 69 32 H 93/53 L 98 11/29/18 10:21 71 39 H 96/43 L 98 11/29/18 10:03 73 37 H 85/46 L 98 11/29/18 10:02 73 38 H 88/48 L 98 11/29/18 09:30 97 11/29/18 09:28 76 33 H 95/48 L 93 11/29/18 09:12 91 11/29/18 09:08 37.5 C 75 36 H 90/45 L 91 PG Care Time/CCT Total # of Minutes Spent Total Time Spent with Patient: Total time spent is greater than 50% in coordination of care (as documented) at patient's floor/unit and/or counseling patient: Critical Care Time: Yes Total Critical Care Time: 60 (1) Acute renal failure Acute renal failure type: unspecified Qualified Code(s): N17.9 - Acute kidney failure, unspecified
[2018-11-29] MEDS ORDERED: NORMOSOL-R 2,000 ML IV ONE (14:15)
--- NOTE | 2018-11-29 14:30 | Emergency Department Note ---
Entered by Alla Rosenbaum acting as a scribe for History of Present Illness General Chief complaint: Cardiac Assessment Stated complaint: SOB/weakness Source: patient and EMS History of Present Illness Onset (ago): day(s) 4 Location: chest Pain Consistency: + other (persistent) Quality: + other (shortness of breath) Associated symptoms: + denies other symptoms (fevers, changes in trach secre tions) and + other (abdominal pain, nausea, weakness, hypotension, elevated heart rate, loss of appetite) The patient is a 63 year old male with a history of chronic respiratory failure, tracheostomy placement, DVT, cardiomyopathy, CHF, pacemaker placement, HLD, and atrial fibrillation that is presenting to the Emergency Room with complaints of persistent shortness of breath that started 3-4 days ago. The patient is a resident at [facility] and was brought to the ED via EMS. EMS reports that the patient was found to be in SVT at 200 this morning with a blood pressure in the 80s. EMS states that a cardioversion was performed successfully in the field. EMS notes that the patient was found to be hypotensive immediately prior to and following the procedure. EMS states that the patients pacemaker started to control the patients heart rate following the cardioversion. EMS reports that the patient received 200 ml of normal saline prior to arrival. EMS notes that the patients INR was not within normal limits yesterday and states that the patient was given vitamin K. The patients blood pressure improved upon arrival to the ED. The patient reports that he has had some associated abdominal pain and nausea. He states that he has not been eating well. He notes that his shortness of breath worsened this morning. He states that his breathing is still abnormal. He reports that he feels weak currently. He notes that his abdominal pain is still present currently and mainly located in the middle abdomen. He reports that he is not normally on O2. He denies any nausea on exam. He denies any recent fevers or changes in trach secretions. Home Medications Home Medications Medication Instructions Recorded Confirmed Type Calmoseptine 1 applic TOPICAL QID PRN 12/30/17 11/29/18 History Fleet Enema 118 ml ID DAILY PRN 12/30/17 11/29/18 History acetaminophen 325 mg PO Q6H PRN 12/30/17 11/29/18 History acetaminophen 650 mg PO DAILY PRN 12/30/17 11/29/18 History albuterol sulfate 3 ml INHALATION QID 12/30/17 11/29/18 History bisacodyl 10 mg ID DAILY PRN 12/30/17 11/29/18 History chlorhexidine gluconate 15 ml PO BID 12/30/17 11/29/18 History ferrous sulfate 325 mg PO DAILY 12/30/17 11/29/18 History furosemide 40 mg PO BID 12/30/17 11/29/18 History magnesium hydroxide [Milk of 30 ml PO HS PRN 12/30/17 11/29/18 History Magnesia] metoprolol succinate 25 mg PO DAILY 12/30/17 11/29/18 History nystatin 1 applic TOPICAL DAILY 12/30/17 11/29/18 History pantoprazole 40 mg PO DAILY 12/30/17 11/29/18 History simvastatin 10 mg PO PM 12/30/17 11/29/18 History tamsulosin 0.4 mg PO DAILY 12/30/17 11/29/18 History warfarin 5 mg PO Q OTHER DAY 01/10/18 11/29/18 History warfarin 7.5 mg PO Q OTHER DAY 01/10/18 11/29/18 History aspirin 81 mg PO DAILY 08/25/18 11/29/18 History sertraline 75 mg PO DAILY 08/25/18 11/29/18 History levothyroxine 100 mcg PO DAILY 11/29/18 11/29/18 History Allergies Allergy/AdvReac Type Severity Reaction Status Date / Time cefepime Allergy Intermediate RASH Verified 11/29/18 10:01 latex Allergy Intermediate DERMITITIS Verified 11/29/18 10:01 aztreonam Allergy Mild RASH Verified 11/29/18 10:01 Past Med/Surg History Medical History Hyperkalemia Hyponatremia Gait disorder History of group B Streptococcus (GBS) infection Acute respiratory failure with hypoxia Pneumonia (Acute) Acute renal failure (Acute) Heart failure, systolic, due to idiopathic cardiomyopathy (Chronic) "echo 12/01/15 - EF 35-39%, abnormal diastolic dysfunction" KEARA (obstructive sleep apnea) (Chronic) Venous insufficiency (Chronic) Hx MRSA infection (Chronic) "02/2016 in sputum" Obesity hypoventilation syndrome Atrial fibrillation and flutter (Chronic) Pacemaker (Acute) 2012 - SSS Tracheostomy tube present (Acute) 2015 - 05/13 obesity hypoventilation syndrome Ventral hernia (Acute) Anemia Asthma Atrial fibrillation on warfarin BPH (benign prostatic hyperplasia) 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 catheter Bacteremia due to group B Streptococcus 09/2017 - requiring indefinite oral suppressive antibiotic therapy Cardiomyopathy Chronic edema BLLE Chronic indwelling Davey catheter Chronic respiratory failure Chronic venous stasis Congestive heart failure Generalized weakness History of DVT (deep vein thrombosis) Hyperlipidemia Lymphedema Major depressive disorder Morbid obesity Obesity hypoventilation syndrome On home oxygen therapy Recurrent UTI Sleep apnea Surgical History Status post placement of cardiac pacemaker H/O tracheostomy (Chronic) History of bronchoscopy w/ trach change 01/2018 [facility] History of cholecystectomy History of hernia repair Family History Other No significant family history Social History Preferred Language: Romanian Communication Ability: Impaired Cover Creaser Required: No Beliefs That Will Affect Care: None Current Living Situation: Care Home Current Living Situation Comment: resident at [facility] Other Information That Helps Us Care for You: Yes Feels Safe at Home: Yes Safety Concerns: Feels Safe At This Time Smoking Status: Never smoker Hx Alcohol Use: No Hx Substance Use: No Review of Systems See HPI for pertinent positives & negatives. and A total of 10 systems reviewed and were otherwise negative Physical Exam Vital Signs Vital Signs - 24 hr 11/29/18 09:08 11/29/18 09:12 11/29/18 09:28 Temperature 37.5 C Temperature Source Oral Sepsis Recent Fever Within 48 Hours No Sepsis Action Taken by Nursing No Action Required Fraction of Inspired Oxygen - Titration 100 Pulse Oximetry Post Tiitration 97 Pulse Rate 75 76 Pulse Rate from SpO2 Sensor 76 Respiratory Rate 36 H 33 H Blood Pressure 90/45 L 95/48 L Blood Pressure Mean 60 63 Pulse Oximetry 91 91 93 Oxygen Delivery Method Trach Collar Trach Collar Trach Collar Oxygen Flow Rate 4 4 4 Fraction of Inspired Oxygen 50 11/29/18 09:30 11/29/18 10:02 11/29/18 10:03 Temperature Temperature Source Sepsis Recent Fever Within 48 Hours Sepsis Action Taken by Nursing Fraction of Inspired Oxygen - Titration 50 Pulse Oximetry Post Tiitration 95 Pulse Rate 73 73 Pulse Rate from SpO2 Sensor 73 72 Respiratory Rate 38 H 37 H Blood Pressure 88/48 L 85/46 L Blood Pressure Mean 61 59 Pulse Oximetry 97 98 98 Oxygen Delivery Method Trach Collar Trach Collar Trach Collar Oxygen Flow Rate Fraction of Inspired Oxygen 100 50 50 11/29/18 10:21 11/29/18 10:34 11/29/18 10:45 Temperature Temperature Source Sepsis Recent Fever Within 48 Hours Sepsis Action Taken by Nursing Fraction of Inspired Oxygen - Titration Pulse Oximetry Post Tiitration Pulse Rate 71 69 72 Pulse Rate from SpO2 Sensor 72 70 72 Respiratory Rate 39 H 32 H 20 Blood Pressure 96/43 L 93/53 L 113/63 Blood Pressure Mean 60 66 79 Pulse Oximetry 98 98 97 Oxygen Delivery Method Trach Collar Trach Collar Trach Collar Oxygen Flow Rate Fraction of Inspired Oxygen 50 50 50 11/29/18 11:01 11/29/18 11:16 11/29/18 11:31 Temperature Temperature Source Sepsis Recent Fever Within 48 Hours Sepsis Action Taken by Nursing Fraction of Inspired Oxygen - Titration Pulse Oximetry Post Tiitration Pulse Rate 73 68 73 Pulse Rate from SpO2 Sensor 71 68 73 Respiratory Rate 36 H 28 H 35 H Blood Pressure 111/60 103/38 L 86/42 L Blood Pressure Mean 77 59 56 Pulse Oximetry 96 97 90 Oxygen Delivery Method Trach Collar Trach Collar Oxygen Flow Rate Fraction of Inspired Oxygen 50 11/29/18 11:33 11/29/18 11:36 11/29/18 11:42 Temperature Temperature Source Sepsis Recent Fever Within 48 Hours Sepsis Action Taken by Nursing Fraction of Inspired Oxygen - Titration Pulse Oximetry Post Tiitration Pulse Rate 67 70 70 Pulse Rate from SpO2 Sensor 69 70 70 Respiratory Rate 24 35 H 33 H Blood Pressure 80/53 L 82/43 L 82/40 L Blood Pressure Mean 62 56 54 Pulse Oximetry 91 87 L 96 Oxygen Delivery Method Trach Collar Trach Collar Trach Collar Oxygen Flow Rate Fraction of Inspired Oxygen GENERAL: Awake, alert, chronically ill-appearing, in no distress. Trach in place. HENT: Normocephalic, atraumatic. EYES: Normal conjunctiva. Sclera non-icteric. NECK: Supple. No nuchal rigidity. Trach in place with creamy secreations noted. RESPIRATORY: Course diffuse lungs sounds. Diminished at the bilateral bases. CARDIAC: Normal rate. Normal rhythm. Extremities warm and well perfused. GI: Soft, non-distended. No tenderness to palpation. RECTAL: Deferred. MUSCULOSKELETAL: Atraumatic. Chest examination reveals no tenderness; erosions at the base of the trach into the upper chest with slight erythema. : Chronic davey catheter in place. LOWER EXTREMITIES: Calves are equal size bilaterally and non-tender. Swollen 1+ bilaterally and wrapped. Chronic stasis of lower extremities. Small healing right calf wound. NEURO: Normal sensorium. No sensory or motor deficits noted. No facial droop. SKIN: Warm and dry. No jaundice noted. Inguinal fold erythema. Course 0900:The patient was evaluated in room A01. A complete history and physical examination was performed. 0955 I reevaluated the patient at this time. He reports no improvement in his symptoms. 1009: The patients trach is found to have eroded to his sternum. Due to the patients weight, CT scans are not possible. 1045: I discussed the patient's case with DIGNA Gaxiola, who asked that the ICU be contacted to evaluate the patient further. 1050: I discussed the patient's case with Dr. Wolff, Dredge Pipe Operator, who will evaluate the patient further in the ICU. 1100: Upon reevaluation, the patient is resting comfortably. I discussed laboratory and radiographic results with the patient. He verbalized agreement of the treatment plan. The patient will be evaluated for further management and care. 1145: I discussed the patients case with PADILLA [facility], who is evaluating the patient further. 1155: Mario Eaton and Aditi Stephenson are at the bedside at this time. Consultations Consultation #1: I discussed the patient's case with DIGNA Gaxiola, who asked that the ICU be contacted to evaluate the patient further. Time: 10:45 Consultation #2: I discussed the patient's case with Dr. Wolff, Dredge Pipe Operator, who will evaluate the patient further in the ICU. Time: 10:50 Consultation #3: I discussed the patients case with PADILLA [facility] ICU, who is evaluating the patient further. Time: 11:45 Administered Medications Norepinephrine Bitartrate 8 mg (/ Dextrose) 508 mls @ 36.33 mls/hr IV .[id number] [facility]; Protocol Stop: 12/29/18 12:14 Last Admin: 11/29/18 12:52 Dose: 0.05 mcg/kg/min, 36.3 mls/hr Documented by: [id number] Cosigned by: [id number] Discontinued Medications Sodium Chloride (Nss 1000ml) 1,000 mls @ 999 mls/hr IV .Q1H1M ONE Stop: 11/29/18 11:21 Last Infusion: 11/29/18 11:47 Dose: 0 mls/hr Documented by: [id number] Admin: 11/29/18 10:24 Dose: 999 mls/hr Documented by: [id number] Piperacillin Sod/Tazobactam Sod (Zosyn) 4.5 gm in 120 mls @ 240 mls/hr IV NOW ONE Stop: 11/29/18 10:52 Last Infusion: 11/29/18 11:30 Dose: 0 mls/hr Documented by: [id number] Admin: 11/29/18 10:44 Dose: 240 mls/hr Documented by: [id number] Vancomycin HCl 2,750 mg/ (Sodium Chloride) 555 mls @ 200 mls/hr IV NOW STA Stop: 11/29/18 14:16 Last Admin: 11/29/18 11:45 Dose: 200 mls/hr Documented by: [id number] Sodium Chloride (Nss 1000ml) 1,000 mls @ 999 mls/hr IV .Q1H1M ONE Stop: 11/29/18 12:45 Last Infusion: 11/29/18 12:52 Dose: 0 mls/hr Documented by: [id number] Admin: 11/29/18 11:47 Dose: 999 mls/hr Documented by: [id number] Phytonadione (Mephyton) 5 mg PO NOW STA Stop: 11/29/18 12:10 Last Admin: 11/29/18 14:07 Dose: Not Given Documented by: [id number] Phytonadione (Mephyton) 5 mg PO NOW STA Stop: 11/29/18 12:11 Last Admin: 11/29/18 13:35 Dose: Not Given Documented by: [id number] Medical Decision Making Differential Diagnosis Differential diagnosis: Etiologies such as appendicitis, diverticulitis, PUD, biliary pathology, UTI, pancreatitis, obstruction, mesenteric ischemia, aortic pathology, infections, inflammatory bowel disease, renal colic, infections, reactive airway disease, pneumonia, pneumothorax, COPD, CHF, cardiac ischemia, pulmonary embolism, musculoskeletal, gastrointestinal, as well as others were entertained. Medical Records Attestation: I reviewed the patient's medical records. Home Medications Current Medication List: was personally reviewed by me Laboratory Data Attestation: I reviewed the patient's lab results. Result diagrams: 11/29/18 09:33 11/29/18 09:33 Lab Results 11/29/18 11/29/18 11/29/18 Range/Units 09:33 09:33 09:33 WBC 16.13 H (4.8-10.8) K/uL RBC 3.92 L (4.7-6.1) M/uL Hgb 10.3 L (14.0-18.0) g/dL Hct 31.5 L (42-52) % MCV 80.4 (80-100) fL MCH 26.3 (25-34) pg MCHC 32.7 (32-36) g/dL RDW Std Deviation 48.9 H (36.4-46.3) fL RDW Coeff of Lexy 16.6 H (11.5-14.5) % Plt Count 408 H (130-400) K/uL MPV 8.7 (7.4-10.4) fL Immature Gran % (Auto) 0.6 % Neut % (Auto) 91.2 % Lymph % (Auto) 3.8 % Metcalfe % (Auto) 4.2 % Eos % (Auto) 0.1 % Baso % (Auto) 0.1 % Immature Gran # (Auto) 0.10 H (0.00-0.02) K/uL Neut # (Auto) 14.70 H (1.4-6.5) K/uL Lymph # (Auto) 0.62 L (1.2-3.4) K/uL Metcalfe # (Auto) 0.68 H (0.11-0.59) K/uL Eos # (Auto) 0.02 (0-0.5) K/uL Baso # (Auto) 0.01 (0-0.2) K/uL PT 70.3 H (9.0-12.0) Seconds INR 8.0 H* (0.9-1.1) APTT 55.5 H* (21.0-31.0) Seconds PTT Ratio 2.0 Sodium 132 L (136-145) mmol/L Potassium 5.8 H (3.5-5.1) mmol/L Chloride 93 L (98-107) mmol/L Carbon Dioxide 27 (21-32) mmol/L Anion Gap 11.0 (3-11) BUN 70 H (7-18) mg/dl Creatinine 6.23 H* (0.6-1.4) mg/dl Est Cr Clr Drug Dosing 20.9 ml/min Est GFR ( Amer) 10.2 Est GFR (Non-Af Amer) 8.8 BUN/Creatinine Ratio 11.3 (10-20) Glucose 70 (70-99) mg/dl POC Lactic Acid Nacho (0.90-1.70) mmol/L Calcium 8.7 (8.5-10.1) mg/dl Magnesium 2.5 H (1.8-2.4) mg/dl Total Bilirubin 1.1 H (0.2-1) mg/dl AST 10 L (15-37) U/L ALT 10 L (12-78) U/L Alkaline Phosphatase 86 (45-117) U/L Troponin I < 0.015 (0-0.045) ng/ml NT-Pro-B Natriuret Pep (0-900) pg/ml Total Protein 7.1 (6.4-8.2) gm/dl Albumin 1.8 L (3.4-5.0) gm/dl Globulin 5.3 H (2.5-4.0) gm/dl Albumin/Globulin Ratio 0.3 L (0.9-2) TSH 1.290 (0.300-4.500) uIu/ml 11/29/18 11/29/18 Range/Units 09:33 10:32 WBC (4.8-10.8) K/uL RBC (4.7-6.1) M/uL Hgb (14.0-18.0) g/dL Hct (42-52) % MCV (80-100) fL MCH (25-34) pg MCHC (32-36) g/dL RDW Std Deviation (36.4-46.3) fL RDW Coeff of Lexy (11.5-14.5) % Plt Count (130-400) K/uL MPV (7.4-10.4) fL Immature Gran % (Auto) % Neut % (Auto) % Lymph % (Auto) % Metcalfe % (Auto) % Eos % (Auto) % Baso % (Auto) % Immature Gran # (Auto) (0.00-0.02) K/uL Neut # (Auto) (1.4-6.5) K/uL Lymph # (Auto) (1.2-3.4) K/uL Metcalfe # (Auto) (0.11-0.59) K/uL Eos # (Auto) (0-0.5) K/uL Baso # (Auto) (0-0.2) K/uL PT (9.0-12.0) Seconds INR (0.9-1.1) APTT (21.0-31.0) Seconds PTT Ratio Sodium (136-145) mmol/L Potassium (3.5-5.1) mmol/L Chloride (98-107) mmol/L Carbon Dioxide (21-32) mmol/L Anion Gap (3-11) BUN (7-18) mg/dl Creatinine (0.6-1.4) mg/dl Est Cr Clr Drug Dosing ml/min Est GFR ( Amer) Est GFR (Non-Af Amer) BUN/Creatinine Ratio (10-20) Glucose (70-99) mg/dl POC Lactic Acid Nacho 2.19 H (0.90-1.70) mmol/L Calcium (8.5-10.1) mg/dl Magnesium (1.8-2.4) mg/dl Total Bilirubin (0.2-1) mg/dl AST (15-37) U/L ALT (12-78) U/L Alkaline Phosphatase (45-117) U/L Troponin I (0-0.045) ng/ml NT-Pro-B Natriuret Pep 7430 H (0-900) pg/ml Total Protein (6.4-8.2) gm/dl Albumin (3.4-5.0) gm/dl Globulin (2.5-4.0) gm/dl Albumin/Globulin Ratio (0.9-2) TSH (0.300-4.500) uIu/ml Imaging Data Radiologist's Impression: Radiology results as stated below per my review and the radiologist's interpretation: SINGLE VIEW CHEST CLINICAL HISTORY: Dyspnea. FINDINGS: 2 AP, portable, upright chest radiographs are compared to study dated 04/21/2016 and correlated with chest CT dated 03/29/2016. The examination is degraded by portable technique and patient rotation. A tracheostomy is in place. A 2-lead cardiac pacemaker is unchanged in position and partially obscures the left lower chest. The heart is enlarged and there is atherosclerotic calcification of the thoracic aorta. The pulmonary vasculature is mildly congested. There is chronic elevation of the right hemidiaphragm and bibasilar airspace opacities. Small pleural effusions are suspected. No pneumothorax is seen. The skeletal structures are osteopenic. The bony thorax is grossly intact. IMPRESSION: 1. Cardiomegaly and cardiac pacemaker with evidence of mild congestive failure. 2. Small pleural effusions are suspected. 3. A tracheostomy is in place. 4. Bibasilar airspace opacities likely represent atelectasis. Clinical correlation will be required. Electronically signed by: Alex Pena M.D. 11/29/2018 9:34 AM ECG Data Attestation: I personally reviewed and interpreted this ECG as follows: Indication: SOB/dyspnea Rate (beats per minute): 75 Rhythm: other (accelerated junctional) Findings: + other (normal QRS, normal QT); no ST depression, no ST elevation and no acute ischemic change Comparison ECG Date: from (04/23/16) Change: the following changes noted (no longer atrially paced) Blood Pressure Blood Pressure Findings: Low blood pressure Blood Pressure Disposition: further management by hospitalist ZARI Narrative Patient is a 63-year-old gentleman presenting via EMS from [facility] today. Received command call from EMS as the patient was severely tachycardic and appeared to be in SVT. Blood pressure was hypotensive and discussed with EMS synchronized cardioversion 200 J which was successfully performed with termination of the SVT. Patient persisted to be hypotensive but did receive 2mg Versed during this procedure. Received IV fluid bolus in route to this facility. Some delay in transport related to extrication given his size. Patient significant history of a flutter, DVT, respiratory failure and does have a trach. Chronic Davey in place. There does appear to be significant evidence of erosion at the base of his chest where the trach is irritated the skin. Desaturates with any repositioning and now requiring trach mask oxygen support. Additional fluid boluses given here as a does have some hypotension. Chest x- ray possibly shows some mild congestive failure with may be follow-up small effusions. Bibasilar opacities are appreciated possibly atelectasis but in light of his shortness of breath and hypoxia issues concerned this could represent pneumonia. Patient does have a significant leukocytosis. Lactate and cultures were obtained. Sputum culture was ordered. Did consider possibly obtaining CT scan of the abdomen pelvis and chest however given his desaturations and unfortunately related to his sizing CT scans were not able to be completed. He did not significantly tender on exam of his abdomen and lower suspicion of acute surgical process but limitation diagnostic studies with this. EKG shows a junctional rhythm but without acute ischemic changes. Patient is not having active chest pain at this point. On attempt to obtain a urine sample here catheter appears clogged. Nursing's attempts to flush this were unsuccessful. Wonder if there may be an obstructive process causing his renal dysfunction with decreased urine output rather than just dehydrational state. Were able to exchange a Davey catheter as the when he came with appeared clogged. There was some minimal slight discharge and lots of sediment on the change. Patient's blood pressure down trended and given a second liter of IV fluid. Norepinephrine was ordered for blood pressure support. Oral vitamin K some limitation given given the elevated INR. Discussed with the karmen Hodgson physician group physician payroll and benefits assistant, the ICU attending, and the ICU nurse practitioner. Impression & Plan Pneumonia, Acute renal failure, Elevated INR Critical Care Time Critical Care Time: Yes Total Critical Care Time: 75 I have personally spent 75 minutes of critical care time in the direct management of this patient. This includes bedside care, interpretation of diagnostic studies, and testing, discussion with consultants, patient, and family members, and other required patient management activities. This 75 minutes is in excess of all separately billable procedures. Discharge Plan Visit Data *Final* Discharge Date/Time: 11/29/18 12:19 Chief Complaint: Cardiac Assessment Stated Complaint: SOB/weakness ED Provider: Joey Acosta Discharge Problem: Pneumonia, Acute renal failure, Elevated INR Patient Disposition: Admitted As Inpatient Discharge Instructions Interventions: ED Discharge Assessment Last Done: 11/29/18 12:19 Discharge Problem: Pneumonia Qualifiers: Pneumonia type: due to unspecified organism Laterality: bilateral Lung location: lower lobe of lung Qualified Code(s): J18.1 - Lobar pneumonia, unspecified organism Acute renal failure Qualifiers: Acute renal failure type: unspecified Qualified Code(s): N17.9 - Acute kidney failure, unspecified The scribe's documentation has been prepared under my direction and personally reviewed by me in its entirety. I confirm that the note above accurately reflects all work, treatment, procedures, and medical decision making performed by me.
[2018-11-29] MEDS ORDERED: NovoLIN-R INSULIN PER UNIT CHARGE IV STA ×2 (14:31→23:03)
[2018-11-29] MEDS: BENZONATATE 100 MG CAPSULE PO SCH ×2 (14:42→20:27)
[2018-11-29] MEDS ORDERED: CALCIUM GLUCONATE 10% 1,000 MG in SODIUM CHLORIDE 0.9% 50 ML IV STA (14:44)
--- NOTE | 2018-11-29 14:48 | Pharmacy Report ---
Pharmacy Abx Dose Short Note - Date of Service November 29, 2018 - Assessment & Plan Assessment 63 year old M receiving vancomycin and zosyn for treatment of pulmonary infection. Patient has a history of Pseudomonas growing in the sputum and Enterobacter in the urine. Awaiting MRSA nasal PCR. Due to BMI and significant ADAM, traditional vancomycin dosing will be difficult. Will get a random level with AM labs ~17 hours after load to assess need for redosing. Day # 1 of antimicrobial therapy. Plan Vancomycin * [place] dose [place] 2750 mg IV load administered @ 1145am * Goal trough level : 15 to 20 mcg/mL * Trough or random level ordered for: 11/30/18 with AM labs Zosyn 4.5g IV q 8, given BMI and history of pseudomonal pulmonary infection Pharmacy will continue to follow and will adjust dose/frequency as necessary. Thank you.
[2018-11-29] MEDS ORDERED: DEXTROSE 50% 50 ML SYRINGE IV STA ×2 (14:49→23:03)
[2018-11-29] MEDS ORDERED: PHYTONADIONE 5 MG in SODIUM CHLORIDE 0.9% 50 ML IV ONE (15:00)
[2018-11-29] MEDS: ALBUT/IPRATROP 3MG/0.5MG NEB 3 ML VIAL NEB SCH ×3 (15:00→23:23)
[2018-11-29] MEDS ORDERED: INSULIN HUMAN REGULAR PER UNIT 10 UNITS in SYRINGE 9.9 ML IV ONE ×2 (15:00→23:15)
--- NOTE | 2018-11-29 15:07 | Ultrasound Report ---
US renal/blad retro comp HISTORY: 63 years-old Male renal failure, abd pain acute renal failure COMPARISON: KUB of same day, CT abdomen and pelvis 02/17/2016 TECHNIQUE: Multiple real time sonographic images of the kidneys and urinary bladder were obtained ass essing grayscale appearance and color flow FINDINGS: Right kidney measures 11 cm in length. Mild cortical thinning about the right kidney with mildly incr eased echogenicity. No right-sided renal calculi or hydronephrosis. Ill-defined increased echogenicit y of the inferior pole right kidney. Previously described enhancing exophytic mass measuring up to 3. 2 cm in length on study from 2016 is not identified. Catheter noted within the urinary bladder which is unremarkable. Limited exam secondary to patient karmen dy habitus. Left kidney measures 13.0 cm in length. Mildly increased echogenicity of the kidney. Exophytic cyst w ith mildly thick wall noted about the interpolar left kidney measuring up to 6.7 x 6.3 x 5.6 cm, unch anged. Mild layering debris within this lesion. IMPRESSION: 1. Limited exam secondary to patient body habitus. 2. Mildly increased echogenicity of the kidneys suggests chronic medical renal disease. 3. Fitch catheter noted within the urinary bladder lumen. 4. Previously noted suspicious mass of the interpolar right kidney is not identified on today's study . Correlate with surgical history. The above report was generated using voice recognition software. It may contain grammatical, syntax o r spelling errors. Electronically signed by: Jens Alberto M.D. 11/29/2018 3:06 PM
[2018-11-29 15:24] LABS: Prothrombin Time 77.4 Seconds (9.0-12.0)
[2018-11-29 15:27] LABS: INR 8.8 (0.9-1.1)
[2018-11-29] MEDS: PIPERACILLIN/TAZOBACTAM 4.5 GM in DEXTROSE 5% 100 ML IV SCH ×2 (15:32→23:50)
[2018-11-29 15:34] LABS: BUN Creatinine Ratio 12.6 (10-20); Blood Urea Nitrogen 74 mg/dl (7-18); Calcium 8.2 mg/dl (8.5-10.1); Carbon Dioxide 25 mmol/L (21-32); Chloride 96 mmol/L (98-107); Creatinine Clr Calc Pharmacy 22.1 ml/min; Est GFR (African American) 10.9; Est GFR (Non-African American) 9.4; Glucose 79 mg/dl (70-99); Potassium 5.5 mmol/L (3.5-5.1); Sodium 133 mmol/L (136-145); Troponin I < 0.015 ng/ml (0-0.045)
[2018-11-29] MEDS: NORMOSOL-R 1,000 ML IV SCH (15:43)
[2018-11-29] MEDS: ACETAMINOPHEN 325 MG TAB PO PRN (19:25)
[2018-11-29] MEDS: ONDANSETRON INJ 2 MG/ML 2 ML VIAL IV PRN (19:25)
[2018-11-29] MEDS: guaiFENesin 600 MG TABCR PO SCH (20:27)
[2018-11-29 20:52] LABS: Base Excess VBG -1.2 mEq/L; HCO3 VBG 27 mmol/L; PCO2 VBG 64 mmHg (38-50); PO2 VBG 21 mmHg; pH VBG 7.25 (7.36-7.41)
[2018-11-29 20:53] LABS: Oxygen Saturation VBG < 60.0 %
[2018-11-29] MEDS ORDERED: SIMVASTATIN 10 MG TAB PO SCH (21:00)
[2018-11-29 21:18] LABS: BUN Creatinine Ratio 11.8 (10-20); Calcium 8.6 mg/dl (8.5-10.1); Creatinine Clr Calc Pharmacy 20.7 ml/min; Est GFR (African American) 10.1; Est GFR (Non-African American) 8.7; Troponin I 0.023 ng/ml (0-0.045)
[2018-11-29 21:35] LABS: Fibrinogen > 860 mg/dl (184-400); INR 2.4 (0.9-1.1)
[2018-11-29] MEDS: VASOPRESSIN 20 UNITS in 0.9 % SODIUM CHLORIDE 100 ML IV SCH (21:51)
[2018-11-30] MEDS ORDERED: DEXTROSE 50% 50 ML SYRINGE IV STA (00:01)
[2018-11-30] MEDS ORDERED: SODIUM POLYSTYRENE SULFONATE 15G/60ML SUSP PO STA (00:01)
[2018-11-30] MEDS ORDERED: CALCIUM GLUCONATE 10% 1,000 MG in SODIUM CHLORIDE 0.9% 50 ML IV STA (00:01)
[2018-11-30] MEDS ORDERED: INSULIN HUMAN REGULAR PER UNIT 10 UNITS in SYRINGE 9.9 ML IV STA (00:01)
[2018-11-30] MEDS ORDERED: SODIUM CHLORIDE 0.9% 500 ML IV ONE (01:44)
[2018-11-30 02:36] LABS: Appearance Urine Turbid (Clear); Color Urine Brown; Specific Gravity Urine 1.021 (1.000-1.030)
[2018-11-30 02:37] LABS: Protein Urine Positive (Negative)
[2018-11-30 02:38] LABS: Bacteria Urine 4+ (Negative); Epithelial Cell Urine 0-5 /lpf (0-5); RBC Urine >30 /hpf (0-4); WBC Urine >30 /hpf (0-5)
[2018-11-30] MEDS: ALBUT/IPRATROP 3MG/0.5MG NEB 3 ML VIAL NEB SCH ×6 (03:08→22:41)
[2018-11-30 03:15] LABS: Hemoglobin 9.9 g/dL (14.0-18.0); Mean Corpuscular Hemoglobin 26.9 pg (25-34); Mean Corpuscular Volume 81.5 fL (80-100); Mean Platelet Volume 8.8 fL (7.4-10.4); Platelet Count 416 K/uL (130-400); RDW Coefficient of Variation 16.9 % (11.5-14.5); RDW Standard Deviation 51.1 fL (36.4-46.3); Red Blood Count 3.68 M/uL (4.7-6.1); White Blood Count 14.11 K/uL (4.8-10.8)
[2018-11-30 03:48] LABS: Albumin Globulin Ratio 0.3 (0.9-2); Albumin Level 1.5 gm/dl (3.4-5.0); BUN Creatinine Ratio 12.4 (10-20); Bilirubin,Total 1.9 mg/dl (0.2-1); Calcium 8.7 mg/dl (8.5-10.1); Creatinine Clr Calc Pharmacy 21.4 ml/min; Est GFR (African American) 10.5; Est GFR (Non-African American) 9.1; Phosphorus 5.3 mg/dl (2.5-4.9); Total Protein 6.5 gm/dl (6.4-8.2)
[2018-11-30] MEDS: VASOPRESSIN 20 UNITS in 0.9 % SODIUM CHLORIDE 100 ML IV SCH ×2 (05:24→12:52)
[2018-11-30] MEDS: LEVOTHYROXINE SODIUM 100 MCG TABLET PO SCH (05:29)
[2018-11-30] MEDS: FUROSEMIDE 80 MG in SYRINGE 0 ML IV ONE ×2 (06:08→06:44)
--- NOTE | 2018-11-30 06:28 | XRay Report ---
XR chest 1V portable CLINICAL HISTORY: volume overload SHORTNESS OF BREATH COMPARISON STUDY: 11/29/2018 FINDINGS: The heart remains enlarged. There is a tracheostomy tube unchanged in position. There is a left subclavian dual-chamber central venous pacemaker. There are low lung volumes. There is continued radiographic evidence of congestive failure/fluid overload. There is mild basilar atelectasis. There is no lobar consolidation[ IMPRESSION: 1. Radiographic evidence of congestive failure/fluid overload with persistent cardiomegaly. 2. Low lung volumes with basilar atelectasis Electronically signed by: Denton Lance M.D. 11/30/2018 6:26 AM
[2018-11-30 06:32] LABS: BUN Creatinine Ratio 13.2 (10-20); Calcium 8.1 mg/dl (8.5-10.1); Creatinine Clr Calc Pharmacy 22.9 ml/min; Est GFR (African American) 11.4; Est GFR (Non-African American) 9.9; Magnesium 2.4 mg/dl (1.8-2.4); Potassium 5.4 mmol/L (3.5-5.1)
--- NOTE | 2018-11-30 07:55 | Critical Care Progress Note ---
Date of Service November 30, 2018 Assessment & Plan (1) Sepsis associated hypotension: Reason Critically Ill: 63-year-old male [facility] from [facility] with history long-term tracheostomy, inmobility, OHS, venous stasis, CHF admitted for septic shock, renal failure, supratherapeutic INR. Neuro - [facility] ICU: Negative Cardiac - CHFlast study from 2 years ago, reobtain and follow-up cardiac ultrasound on this admission -Bedside POC ultrasound appeared that patient had preserved ejection fraction -BNP elevated 7,000; We will hold home dose Lasix for now as patient is hypotensive and septic History of a flutterpatient currently paced rhythm on monitor and, has history of a flutter and was on Coumadin -Currently holding Coumadin and transfusing with FFP and vitamin K as patient had INR of 8 -Repeat INR this a.m. is 2.4 Septic shockmultiple sources possible as patient has multiple pressure ulcers, history of multidrug resistant Pseudomonas, and UTI -Procalcitonin elevated to 8.6, lactic acid elevated but now cleared with IV fluid resuscitation, blood cultures and urine culture pending -MRSA PCR negative -Currently requiring levo fed drip -Gram-negative bacilli on sputum culture, follow-up final read -Urinalysis turbid with many bacteria, urine culture pending -Currently requiring vasopressor support -ID consult, follow-up recs -We will continue current antibiotic therapy with Vanco and Zosyn at this time Respiratory - Hypoxic respiratory failurelikely mixed OHS versus CHF versus pneumonia - patient is on trach collar requiring 50% FiO2, patient's baseline O2 is 5 L -Patient has long-term tracheostomy, will use ventilator if indicated -Chest x-ray shows bibasilar opacities and small pleural effusions bilaterally -Holding Lasix for now for hypotension ADAM -We will continue nebs -See sepsis treatment above GI - Abdominal tendernessKUB negative for obstruction -Alkaline phosphatase and LFTs negative -Continue bowel regimen RENAL/LYTES - Acute renal failurepresents with creatinine 6, likely due to hypotension from sepsis, last creatinine improved -Renal ultrasound limited due to body habitus, does suggest chronic renal disease -We will monitor with every 6 hours BMPs -Nephrology consult, will follow up recs, if unimproved patient may need dialysis in the near future -Avoid nephrotoxins Hyperkalemiagiven calcium gluconate injection and 10 insulin in D50 -Potassium remains high but stable, will monitor with routine BMPs and treat as appropriately - Chronic Fitch, changed in emergency department ENDO - No history of diabetes or thyroid disease ICU hypoglycemic protocol HEME - H&H stable, monitor routine CBCs Supratherapeutic INR-INR 8 on admission -Given IV vitamin K 5 mg -Given 1 unit of FFP yesterday afternoon -INR reduced to 2.4 this a.m. -No current signs of bleeding ID - History resistant Pseudomonas, will continue vancomycin and Zosyn for sepsis of unknown source Urine and blood cultures pending LINES/IV ACCESS - Peripheral IVs, Fitch DVT PROPHYLAXIS - Heparin subcu I have personally spent 50 minutes of critical care time in the direct management of this patient. This is a life/limb threatening event. This includes time spent evaluating patient, direct bedside care, chart review, placing orders, interpretation of diagnostic studies, discussion with consultants, patient, and family members, as well as other required patient management activities. This time is exclusive of all separately billable procedures, and teaching time and separate from and in addition to any other critical care service time. Thank you for allowing us to participate in the care of this patient. Please refer to my attending physician's documentation for any further recommendations. (2) Acute renal failure: (3) Acute respiratory failure with hypoxia: (4) History of group B Streptococcus (GBS) infection: (5) Hyperkalemia: (6) Supratherapeutic INR: (7) Obesity hypoventilation syndrome: (8) Atrial fibrillation and flutter: Supervising Physician Co-Signing Physician Notes Patient seen and examined with Mario SAWYER. Patient discussed on multidisciplinary rounds. Patient sputum cultures are growing back gram- negative rods. Her pro-calcitonin was 8 yesterday. We will continue to trend the pro-calcitonin. Lactic acid is elevated to 2.7. Obtain repeat lactic acid value. Patient is finally having some urine output but nursing reports that urine appears bloody with occasional clots. Will consult urology. Continue Zosyn given his history of Pseudomonas that is resistant. Continues to be in septic shock requiring levophed and vasopressin. Map goals are above 65. Patient refused central access today.. 80 mg of IV Lasix given this morning. Creatinine is trending down. He does likely have a component of prerenal azotemia and ischemic ATN. Nephrology consultation is pending. 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 We will change out the tracheostomy. He has a size 8 XLT. Subjective This morning patient appears comfortable, still on 50% FiO2 trach collar. He did require vasopressors overnight for blood pressure support as he remains hypotensive and was unresponsive to fluid resuscitation. Patient will need central access for vasopressors/difficult access, did not attempts to insert central line due to challenging anatomy along with elevated INR. Will consult PICC team. Also consulting ID as patient has multiple possibilities of source for bacteremia. Along with history of drug-resistant organisms. Consult also placed to urology and nephrology as patient is in acute renal failure, hyperkalemic, turbid and purulent urine with UTI, and requiring regular Fitch irrigation. Patient currently critically ill and's will remain in ICU at this time. Patient denies headache, syncope, dizziness, shortness of breath, chest pain, palpitations, nausea or vomiting, diarrhea. He does report abdominal tenderness with palpation. Review of Systems Review of Systems: All systems reviewed & are unremarkable except as noted in HPI & below Physical Exam Eyes: PERRL, conjunctivae normal, anicteric sclerae ENMT: external ear and nose normal, oropharynx normal Neck: trachea midline, no thyromegaly Respiratory: Symmetrical chest wall movement, tracheostomy midline, coarse crackles auscultated bilaterally throughout the lung olguin Cardiovascular: Heart Sounds: normal S1 and normal S2 Vessels: no JVD Gastrointestinal (Abdomen): Inspection/Auscultation: + abdomen distended, normal bowel sounds and + abdominal edema Percussion/Palpation: + abdomen tender; abdomen not firm Skin: + skin tightening, + wound and + dry skin Neurologic: PERRL, EOMI, accommodation nl, no face palsy, no dysarthria Psychiatric: A+Ox3, euthymic affect Results & Data Vital Signs (Past 12 Hours) Vital Signs Temp Pulse Pulse Resp BP Pulse Ox 11/30/18 05:30 93 H 21 97/58 L 97 11/30/18 05:15 76 23 95/60 L 96 11/30/18 05:00 92 H 21 94/56 L 93 11/30/18 04:45 77 28 H 89/56 L 95 11/30/18 04:32 76 29 H 89/46 L 96 11/30/18 04:17 76 19 102/52 L 95 11/30/18 04:02 72 29 H 85/45 L 96 11/30/18 04:01 73 29 H 77/46 L 97 11/30/18 04:00 72 19 97 11/30/18 03:44 82 20 99/53 L 98 11/30/18 03:35 82 20 79/35 L 97 11/30/18 03:31 85 25 H 75/35 L 97 11/30/18 03:15 87 32 H 93/59 L 97 11/30/18 03:08 83 21 96 11/30/18 03:01 84 22 81/43 L 96 11/30/18 03:00 83 21 96 11/30/18 02:47 89 20 92/51 L 96 11/30/18 02:38 85 23 83/46 L 95 11/30/18 02:31 84 20 73/49 L 96 11/30/18 02:16 85 27 H 88/51 L 96 11/30/18 02:01 86 25 H 89/40 L 96 11/30/18 02:00 120 H 26 H 96 11/30/18 01:46 83 23 85/44 L 95 11/30/18 01:30 87 32 H 109/47 L 95 11/30/18 01:16 84 29 H 97/52 L 95 11/30/18 01:07 72 24 104/60 96 11/30/18 01:00 77 21 79/55 L 94 11/30/18 00:54 87 30 H 93/46 L 94 11/30/18 00:50 77 19 90/48 L 95 11/30/18 00:33 83 23 91/41 L 96 11/30/18 00:30 81 21 96 11/30/18 00:16 83 21 83/35 L 96 11/30/18 00:01 82 22 86/38 L 96 11/30/18 00:00 37.1 C 83 21 96 11/29/18 23:45 87 22 96/44 L 97 11/29/18 23:30 88 21 117/44 L 97 11/29/18 23:23 72 25 H 95 11/29/18 23:16 76 33 H 94/52 L 91 11/29/18 23:00 79 28 H 101/48 L 97 11/29/18 22:46 76 33 H 87/46 L 98 11/29/18 22:31 75 32 H 100/46 L 96 11/29/18 22:30 73 34 H 96 11/29/18 22:15 92 H 25 H 90/49 L 95 11/29/18 22:00 93 H 33 H 101/46 L 96 11/29/18 21:46 78 34 H 93/58 L 96 11/29/18 21:45 76 35 H 96 11/29/18 21:31 80 28 H 92/40 L 97 11/29/18 21:30 78 35 H 98 11/29/18 21:16 74 30 H 99/41 L 99 11/29/18 21:15 75 30 H 99 11/29/18 21:01 82 35 H 122/67 97 11/29/18 21:00 82 34 H 97 11/29/18 20:47 91 H 33 H 98 11/29/18 20:45 100 H 20 11/29/18 20:37 90 25 H 115/59 L 11/29/18 20:30 91 H 11/29/18 20:18 63 27 H 94 11/29/18 20:15 65 95/40 L 99 11/29/18 20:03 84 11/29/18 20:01 65 90/35 L 98 11/29/18 20:00 37 C 63 100 11/29/18 19:57 67 97/38 L 99 11/29/18 19:55 67 79/34 L 97 PG Care Time/CCT Total # of Minutes Spent Total Time Spent with Patient: Total time spent is greater than 50% in coordination of care (as documented) at patient's floor/unit and/or counseling patient: Critical Care Time: Yes Total Critical Care Time: 50 (1) Acute renal failure Acute renal failure type: unspecified Qualified Code(s): N17.9 - Acute kidney failure, unspecified
[2018-11-30] MEDS ORDERED: TAMSULOSIN HCL 0.4 MG CAP PO SCH (09:00)
[2018-11-30] MEDS ORDERED: FERROUS SULFATE 325 MG TAB PO SCH (09:00)
[2018-11-30] MEDS: PIPERACILLIN/TAZOBACTAM 4.5 GM in DEXTROSE 5% 100 ML IV SCH ×2 (09:02→16:34)
[2018-11-30] MEDS: NOREPINEPHRINE BIT INJ 8 MG in DEXTROSE 5% 500 ML IV SCH ×2 (09:03→21:33)
[2018-11-30] MEDS: NYSTATIN POWDER 15GM BTL EXT SCH ×2 (09:03→12:15)
[2018-11-30] MEDS: SERTRALINE HCL 50 MG TABLET PO SCH (09:12)
[2018-11-30] MEDS: BENZONATATE 100 MG CAPSULE PO SCH (09:12)
[2018-11-30] MEDS: guaiFENesin 600 MG TABCR PO SCH ×2 (09:12→22:03)
[2018-11-30] MEDS: PANTOprazole 40 MG TAB PO SCH (09:12)
[2018-11-30] MEDS ORDERED: GLUCOSE 10 TABS/TUBE PO PRN (09:45)
[2018-11-30] MEDS ORDERED: GLUCAGON FOR INJ 1 MG VIAL IM PRN (09:45)
[2018-11-30] MEDS ORDERED: GLUCOSE 40% GEL 15 GM TUBE PO PRN (09:45)
[2018-11-30] MEDS ORDERED: CARBOHYDRATES FOR HYPOGLYCEMIA PO PRN (09:45)
[2018-11-30] MEDS ORDERED: DEXTROSE 50% 50 ML SYRINGE IV PRN (09:45)
--- NOTE | 2018-11-30 11:02 | Nephrology Consultation ---
Date of Consultation November 30, 2018 Assessment & Plan (1) Acute renal failure: 63-year-old male with septic shock with multiple infectious source including chronic trach collar with history of recurrent respiratory infection with sputum positive for gram-negative patience. Persistently hypotensive since admission requiring multiple pressor support. Developed acute kidney injury and hyperkalemia with baseline decent renal function ( b/l cr 1.1-1.3). Creatinine on admission was 6.3 slightly improved to 5.7. Acute kidney injury most likely secondary to ATN versus prerenal azotemia with persistent hypotension in the setting of septic shock. --continue hemodynamics support, keep MAP>65 --suggest Kayexalate 30 g p.o. x1 dose for potassium above 5.5 --need to be cautious with volume resuscitation with history of CHF and oliguria --close monitoring of renal function and the electrolyte --hopefully renal function will continue to improve with improved hemodynamic weeks however if patient develops significant electrolyte abnormality or further worsening of renal function may need to discuss goals of care with patient and family as considering patient's multiple comorbidities and chronic debilitated status, it would not be reasonable to offer chronic dialysis. Will follow Thank you for allowing me to participate in your patient's care. It was a pleasure to see Marcel (2) Hyperkalemia: (3) Hyponatremia: (4) Chronic indwelling Davey catheter: (5) Morbid obesity with BMI of 60.0-69.9, adult: (6) Sepsis associated hypotension: History of Present Illness Reason for Consultation: Acute kidney injury and electrolyte abnormality. Attending Physician: Miguel Graves, DO History of Present Illness Marcel Gusman is a 63-year-old gentlemen with complicated past medical history including OHS with long-term tracheostomy, recurrent resistant pseudomonal respiratory infections, h/o CHF, a flutter on Coumadin,morbid obesity, lower extremity lymphedema. Was admitted yesterday with septic shock. Nephrology consult was requested to manage acute kidney injury and hyperkalemia. Electronic medical records including labs and imaging are reviewed in detail during patient's visit. He was brought out to ER from long-term care facility with lethargy, generalized weakness and abdominal pain. Was found to be hypotensive, systolic blood pressure has been staying around 80s to 90s, requiring multiple pressor support. Found to have leukocytosis, fever and sputum culture from tracheostomy tube lan wing gram-negative rods with prior history of resistant Pseudomonas respiratory infection. Currently on broad-spectrum antibiotic. Baseline renal function has been decent with creatinine 1.1-1.3. On admission patient was found to have acute kidney injury and hyperkalemia, creatinine 6.3 improved to 5.7, potassium improved to 5.4 after receiving insulin, D50 and calcium gluconate. Has been oliguric with hematuria, has chronic Davey catheter in place. Urinalysis positive for hematuria proteinuria and pyuria. Renal ultrasound otherwise unremarkable. Complicated past medical history including recurrent respiratory infection, chronic Davey catheter, on anticoagulation for a flutter, morbid obesity with obesity hypoventilation syndrome with long-term tracheostomy. Has lymphedema of lower extremity. Has been in long-term care facility mostly bedridden. Currently he denies any specific symptoms. Allergies Allergy/AdvReac Type Severity Reaction Status Date / Time cefepime Allergy Intermediate RASH Verified 11/29/18 10:01 latex Allergy Intermediate DERMITITIS Verified 11/29/18 10:01 aztreonam Allergy Mild RASH Verified 11/29/18 10:01 Home Medications Home Medications Medication Instructions Recorded Confirmed Type Calmoseptine 1 applic TOPICAL QID PRN 12/30/17 11/29/18 History Fleet Enema 118 ml DC DAILY PRN 12/30/17 11/29/18 History acetaminophen 325 mg PO Q6H PRN 12/30/17 11/29/18 History acetaminophen 650 mg PO DAILY PRN 12/30/17 11/29/18 History albuterol sulfate 3 ml INHALATION QID 12/30/17 11/29/18 History bisacodyl 10 mg DC DAILY PRN 12/30/17 11/29/18 History chlorhexidine gluconate 15 ml PO BID 12/30/17 11/29/18 History ferrous sulfate 325 mg PO DAILY 12/30/17 11/29/18 History furosemide 40 mg PO BID 12/30/17 11/29/18 History magnesium hydroxide [Milk of 30 ml PO HS PRN 12/30/17 11/29/18 History Magnesia] metoprolol succinate 25 mg PO DAILY 12/30/17 11/29/18 History nystatin 1 applic TOPICAL DAILY 12/30/17 11/29/18 History pantoprazole 40 mg PO DAILY 12/30/17 11/29/18 History simvastatin 10 mg PO PM 12/30/17 11/29/18 History tamsulosin 0.4 mg PO DAILY 12/30/17 11/29/18 History warfarin 5 mg PO Q OTHER DAY 01/10/18 11/29/18 History warfarin 7.5 mg PO Q OTHER DAY 01/10/18 11/29/18 History aspirin 81 mg PO DAILY 08/25/18 11/29/18 History sertraline 75 mg PO DAILY 08/25/18 11/29/18 History levothyroxine 100 mcg PO DAILY 11/29/18 11/29/18 History Patient History Medical History Hyperkalemia Hyponatremia Gait disorder History of group B Streptococcus (GBS) infection Acute respiratory failure with hypoxia Pneumonia (Acute) Acute renal failure (Acute) Heart failure, systolic, due to idiopathic cardiomyopathy (Chronic) "echo 12/01/15 - EF 35-39%, abnormal diastolic dysfunction" KEARA (obstructive sleep apnea) (Chronic) Venous insufficiency (Chronic) Hx MRSA infection (Chronic) "02/2016 in sputum" Obesity hypoventilation syndrome Atrial fibrillation and flutter (Chronic) Indwelling Davey catheter present Pacemaker (Acute) 2011 - Tracheostomy tube present (Acute) 2015 - 05/13 obesity hypoventilation syndrome Ventral hernia (Acute) Anemia Asthma Atrial fibrillation on warfarin BPH (benign prostatic hyperplasia) 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 catheter Bacteremia due to group B Streptococcus 09/2017 - requiring indefinite oral suppressive antibiotic therapy Cardiomyopathy Chronic edema BLLE Chronic indwelling Davey catheter Chronic respiratory failure Chronic venous stasis Congestive heart failure Generalized weakness History of DVT (deep vein thrombosis) Hyperlipidemia Lymphedema Major depressive disorder Morbid obesity Obesity hypoventilation syndrome On home oxygen therapy Recurrent UTI Sleep apnea Surgical History Status post placement of cardiac pacemaker H/O tracheostomy (Chronic) History of bronchoscopy w/ trach change 01/2018 [facility] History of cholecystectomy History of hernia repair Family History Other No significant family history Social History Preferred Language: Mohawk Communication Ability: Effective 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 HEENT: Atraumatic, normocephalic. NECK: Trach collar in place ENT: Grossly unremarkable RESPIRATORY: Normal breathing efforts, overall decreased breath sound but no wheezes or rales. CARDIOVASCULAR: S1, S2 normal, rate rhythm regular. ABDOMEN: Obese, Soft, nontender, positive bowel sound. MUSCULOSKELETAL: No joint swelling, erythema or tenderness. SKIN: Lower extremities skin dry and scaly EXTREMITY: Lymphedema of bilateral lower extremity NEURO: Grossly unremarkable, detailed exam was not possible PSYCHIATRY: Normal mood Results & Data Vital Signs (Past 12 Hours) Vital Signs Temp Pulse Pulse Resp BP Pulse Ox 11/30/18 08:31 80 28 H 136/52 L 95 11/30/18 08:16 82 17 118/53 L 94 11/30/18 08:00 83 84 26 H 107/62 96 11/30/18 07:46 82 24 122/47 L 96 11/30/18 07:30 84 18 111/51 L 95 11/30/18 07:15 84 32 H 100/75 97 11/30/18 07:01 83 28 H 114/57 L 97 11/30/18 05:30 93 H 21 97/58 L 97 11/30/18 05:15 76 23 95/60 L 96 11/30/18 05:00 92 H 21 94/56 L 93 11/30/18 04:45 77 28 H 89/56 L 95 11/30/18 04:32 76 29 H 89/46 L 96 11/30/18 04:17 76 19 102/52 L 95 11/30/18 04:02 72 29 H 85/45 L 96 11/30/18 04:01 73 29 H 77/46 L 97 11/30/18 04:00 72 19 97 11/30/18 03:44 82 20 99/53 L 98 11/30/18 03:35 82 20 79/35 L 97 11/30/18 03:31 85 25 H 75/35 L 97 11/30/18 03:15 87 32 H 93/59 L 97 11/30/18 03:08 83 21 96 11/30/18 03:01 84 22 81/43 L 96 11/30/18 03:00 83 21 96 11/30/18 02:47 89 20 92/51 L 96 11/30/18 02:38 85 23 83/46 L 95 11/30/18 02:31 84 20 73/49 L 96 11/30/18 02:16 85 27 H 88/51 L 96 11/30/18 02:01 86 25 H 89/40 L 96 11/30/18 02:00 120 H 26 H 96 11/30/18 01:46 83 23 85/44 L 95 11/30/18 01:30 87 32 H 109/47 L 95 11/30/18 01:16 84 29 H 97/52 L 95 11/30/18 01:07 72 24 104/60 96 11/30/18 01:00 77 21 79/55 L 94 11/30/18 00:54 87 30 H 93/46 L 94 11/30/18 00:50 77 19 90/48 L 95 11/30/18 00:33 83 23 91/41 L 96 11/30/18 00:30 81 21 96 11/30/18 00:16 83 21 83/35 L 96 11/30/18 00:01 82 22 86/38 L 96 11/30/18 00:00 37.1 C 83 21 96 11/29/18 23:45 87 22 96/44 L 97 11/29/18 23:30 88 21 117/44 L 97 11/29/18 23:23 72 25 H 95 11/29/18 23:16 76 33 H 94/52 L 91 11/29/18 23:00 79 28 H 101/48 L 97 PG Care Time/CCT Total # of Minutes Spent Total Time Spent with Patient: Total time spent is greater than 50% in coordination of care (as documented) at patient's floor/unit and/or counseling patient: (1) Acute renal failure Acute renal failure type: unspecified Qualified Code(s): N17.9 - Acute kidney failure, unspecified
[2018-11-30] MEDS: INSULIN ASPART 100 UNITS/ML 3 ML PEN SC SCH ×2 (12:15→17:43)
--- NOTE | 2018-11-30 13:53 | Infectious Disease Consult ---
Date of Consultation November 30, 2018 Assessment & Plan (1) Sepsis associated hypotension: continue abx, dose vanco by level due to adam. consider addition of second agent for gnr coverage pending final culture results, suggest quinolone > aminoglycoside due to adam. follow cultures, will follow. History of Present Illness Attending Physician: Miugel Graves DO pt admitted from [facility] with resp distress, cxr revealed fluid overload, procalcitonin elevated at 23, found to have ADAM, creat 6.2 - baseline 1 in October. WBC elevated t 16, blood, sputum and urine cultures obtained, UA >30 wbc +4 bacteria, has arron davey culture growing GNR, blood and urine cultures pending. Received vanco and zosyn, tolerting well. vanco level today 16, creat improved to 5.6, wbc 14. afebrile since admission, requiring pressor support. ID consulted for sepsis. opens eyes to name but does not answer questions. comfortable on my exam. Allergies Allergy/AdvReac Type Severity Reaction Status Date / Time cefepime Allergy Intermediate RASH Verified 11/29/18 10:01 latex Allergy Intermediate DERMITITIS Verified 11/29/18 10:01 aztreonam Allergy Mild RASH Verified 11/29/18 10:01 Home Medications Home Medications Medication Instructions Recorded Confirmed Type Calmoseptine 1 applic TOPICAL QID PRN 12/30/17 11/29/18 History Fleet Enema 118 ml DC DAILY PRN 12/30/17 11/29/18 History acetaminophen 325 mg PO Q6H PRN 12/30/17 11/29/18 History acetaminophen 650 mg PO DAILY PRN 12/30/17 11/29/18 History albuterol sulfate 3 ml INHALATION QID 12/30/17 11/29/18 History bisacodyl 10 mg DC DAILY PRN 12/30/17 11/29/18 History chlorhexidine gluconate 15 ml PO BID 12/30/17 11/29/18 History ferrous sulfate 325 mg PO DAILY 12/30/17 11/29/18 History furosemide 40 mg PO BID 12/30/17 11/29/18 History magnesium hydroxide [Milk of 30 ml PO HS PRN 12/30/17 11/29/18 History Magnesia] metoprolol succinate 25 mg PO DAILY 12/30/17 11/29/18 History nystatin 1 applic TOPICAL DAILY 12/30/17 11/29/18 History pantoprazole 40 mg PO DAILY 12/30/17 11/29/18 History simvastatin 10 mg PO PM 12/30/17 11/29/18 History tamsulosin 0.4 mg PO DAILY 12/30/17 11/29/18 History warfarin 5 mg PO Q OTHER DAY 01/10/18 11/29/18 History warfarin 7.5 mg PO Q OTHER DAY 01/10/18 11/29/18 History aspirin 81 mg PO DAILY 08/25/18 11/29/18 History sertraline 75 mg PO DAILY 08/25/18 11/29/18 History levothyroxine 100 mcg PO DAILY 11/29/18 11/29/18 History Patient History Medical History Hyperkalemia Hyponatremia Gait disorder History of group B Streptococcus (GBS) infection Acute respiratory failure with hypoxia Pneumonia (Acute) Acute renal failure (Acute) Heart failure, systolic, due to idiopathic cardiomyopathy (Chronic) "echo 12/01/15 - EF 35-39%, abnormal diastolic dysfunction" KEARA (obstructive sleep apnea) (Chronic) Venous insufficiency (Chronic) Hx MRSA infection (Chronic) "02/2016 in sputum" Obesity hypoventilation syndrome Atrial fibrillation and flutter (Chronic) Indwelling Davey catheter present Pacemaker (Acute) 2011 - Tracheostomy tube present (Acute) 2015 - 05/13 obesity hypoventilation syndrome Ventral hernia (Acute) Anemia Asthma Atrial fibrillation on warfarin BPH (benign prostatic hyperplasia) 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 catheter Bacteremia due to group B Streptococcus 09/2017 - requiring indefinite oral suppressive antibiotic therapy Cardiomyopathy Chronic edema BLLE Chronic indwelling Davey catheter Chronic respiratory failure Chronic venous stasis Congestive heart failure Generalized weakness History of DVT (deep vein thrombosis) Hyperlipidemia Lymphedema Major depressive disorder Morbid obesity Obesity hypoventilation syndrome On home oxygen therapy Recurrent UTI Sleep apnea Surgical History Status post placement of cardiac pacemaker H/O tracheostomy (Chronic) History of bronchoscopy w/ trach change 01/2018 [facility] History of cholecystectomy History of hernia repair Family History Other No significant family history Social History Preferred Language: Greenlandic Communication Ability: Effective Asset Liability Analyst Required: No Beliefs That Will Affect Care: None Current Living Situation: Alf Current Living Situation Comment: resident at [facility] Other Information That Helps Us Care for You: Yes Feels Safe at Home: Yes Safety Concerns: Feels Safe At This Time Smoking Status: Never smoker Hx Alcohol Use: No Hx Substance Use: No Review of Systems Review of Systems: Unobtainable due to cognitive status Physical Exam Constitutional: + morbidly obese; not ill appearing Eyes: PERRL, conjunctivae normal, anicteric sclerae ENMT: external ear and nose normal, oropharynx normal Neck: trachea midline trach noted, no secretions Respiratory: normal respiratory effort; no respiratory distress and no labored breathing Auscultation: + diminished lung sounds and + rhonchi Cardiovascular: Rate/Rhythm: regular rate and regular rhythm Extremities: + pedal edema Gastrointestinal (Abdomen): normal bowel sounds, soft, nontender, no hepatosplenomegaly Inspection/Auscultation: abdomen normal to inspection; abdomen not distended Musculoskeletal: Head/Neck/Chest: + head abnormal to inspection, normocephalic and head atraumatic Skin: no rashes, warm and dry Psychiatric: Orientation: alert Results & Data Vital Signs (Past 12 Hours) Vital Signs Pulse Pulse Resp BP Pulse Ox 11/30/18 11:46 87 28 H 118/48 L 94 11/30/18 11:31 83 22 121/49 L 95 11/30/18 11:28 86 24 96 11/30/18 11:16 87 19 108/62 95 11/30/18 11:01 87 30 H 134/50 L 96 11/30/18 11:00 84 31 H 96 11/30/18 10:45 81 18 117/53 L 96 11/30/18 10:30 86 19 110/55 L 80 L 11/30/18 10:15 82 19 105/77 91 11/30/18 10:01 84 18 122/67 93 11/30/18 09:46 74 24 125/58 L 81 L 11/30/18 09:31 76 28 H 121/48 L 97 11/30/18 09:15 74 25 H 125/73 96 11/30/18 09:01 79 19 104/43 L 95 11/30/18 08:46 75 22 119/50 L 96 11/30/18 08:31 80 28 H 136/52 L 95 11/30/18 08:16 82 17 118/53 L 94 11/30/18 08:00 83 84 26 H 107/62 96 11/30/18 07:46 82 24 122/47 L 96 11/30/18 07:30 84 18 111/51 L 95 11/30/18 07:15 84 32 H 100/75 97 11/30/18 07:01 83 28 H 114/57 L 97 11/30/18 05:30 93 H 21 97/58 L 97 11/30/18 05:15 76 23 95/60 L 96 11/30/18 05:00 92 H 21 94/56 L 93 11/30/18 04:45 77 28 H 89/56 L 95 11/30/18 04:32 76 29 H 89/46 L 96 11/30/18 04:17 76 19 102/52 L 95 11/30/18 04:02 72 29 H 85/45 L 96 11/30/18 04:01 73 29 H 77/46 L 97 11/30/18 04:00 72 19 97 11/30/18 03:44 82 20 99/53 L 98 11/30/18 03:35 82 20 79/35 L 97 11/30/18 03:31 85 25 H 75/35 L 97 11/30/18 03:15 87 32 H 93/59 L 97 11/30/18 03:08 83 21 96 11/30/18 03:01 84 22 81/43 L 96 11/30/18 03:00 83 21 96 11/30/18 02:47 89 20 92/51 L 96 11/30/18 02:38 85 23 83/46 L 95 11/30/18 02:31 84 20 73/49 L 96 11/30/18 02:16 85 27 H 88/51 L 96 11/30/18 02:01 86 25 H 89/40 L 96 11/30/18 02:00 120 H 26 H 96 Laboratory Results Microbiology 11/29/18 Unknown Sputum,Trach Gram Stain - Final 11/29/18 Unknown Sputum,Trach Sputum Culture - Preliminary Gram negative bacilli 11/29/18 10:34 Blood Aerobic Blood Culture - Preliminary No growth in Aerobic bottle after 24 hours. 11/29/18 09:32 Blood Aerobic Blood Culture - Preliminary No growth in Aerobic bottle after 24 hours. 11/29/18 09:32 Blood Anaerobic Blood Culture - Preliminary No growth in Anaerobic bottle after 24 hours. PG Care Time/CCT Total # of Minutes Spent Total Time Spent with Patient: Total time spent is greater than 50% in coordination of care (as documented) at patient's floor/unit and/or counseling patient:
[2018-11-30 14:20] LABS: BUN Creatinine Ratio 14.3 (10-20); Calcium 8.6 mg/dl (8.5-10.1); Creatinine Clr Calc Pharmacy 25.6 ml/min; Est GFR (Non-African American) 11.2; Potassium 4.8 mmol/L (3.5-5.1)
--- NOTE | 2018-11-30 16:14 | Hospitalist Progress Note ---
Date of Service November 30, 2018 Assessment & Plan (1) Septic shock: likely due to pneumonia but also could be due to UTI on Levophed and Vasopressin adequately fluid resuscitated at this point continue Vancomycin and Zosyn ID following (2) Acute respiratory failure with hypoxia: due to pneumonia continue oxygen via trach on FiO2 40-50% no respiratory distress (3) Pneumonia: continue respiratory care Vanco and Zosyn nebulizers sputum culture growing gram negative rods WBC down to 14k from 16k ID following (4) Acute renal failure: -Creatinine baseline appears to be around 1.5, CR = 6.23, BUN = 70 on admission likely from prerenal or ATN Cr down slightly to 5.0 making a little more urine via davey nephrology following, appreciate recommendations from Dr. Ivory (5) Obesity hypoventilation syndrome: -Likely contributing to patient's poor respiratory status (6) Asthma: -History of such no wheezing continue nebulizers (7) H/O tracheostomy: -S/P pacemaker insertion in 2016 -Tracheostomy care (8) Atrial fibrillation and flutter: -Chronic, holding Xarelto -Appears to be rate controlled currently, holding beta-blockade due to hypotension, monitor for rebound tachycardia (9) Supratherapeutic INR: reversed with vitamin k and FFP INR down to 2.4 from 8 on admission (10) Status post placement of cardiac pacemaker: -Completed in 2016, follows with Dr. Baeza as an outpatient (11) Heart failure, systolic, due to idiopathic cardiomyopathy: -Chronic systolic CHF in the setting of pneumonia -NT-Pro-BNP elevated at time of admission -Patient hypotensive likely secondary to sepsis from pneumonia-patient requiring pressors to maintain BP, no diuretics at this time -Hold Lasix, Toprol succinate 25 mg daily -Allow ASA 81 mg starting tomorrow monitor volume status closely, especially with ADAM and low urine output (12) Hx MRSA infection: on Vancomcyin no gram positives growing on culture (13) History of group B Streptococcus (GBS) infection: - Hx of such - Previously followed with Dr. Morales in July, August and September of 2017 for recurrent infection - Wound consult for area on R calf - Culture wound (14) DVT of lower extremity (deep venous thrombosis): -History of such -Holding Xarelto (15) Gait disorder: -Chronic -PT/OT consults (16) Hyponatremia: -Sodium 132 upon admission improved to 136 (17) Hyperkalemia: -Potassium elevated at 5.8 down to 4.8 today (18) KEARA (obstructive sleep apnea): -Chronic (19) Venous insufficiency: -Chronic -Wound consult for right calf wound -Chronic venous stasis changes over bilateral lower extremities (20) Morbid obesity with BMI of 60.0-69.9, adult: - Diet and exercise will need to be encouraged upon discharge (21) DVT prophylaxis: INR therapeutic Subjective patient resting in bed, no issues overnight d/w RN, he is now requiring Vasopressin in addition to the levophed BP is stable d/w Dr. Ivory, appreciate her input, cautious use of fluids, he is making more urine reviewed labs, Cr down to 5.0 this afternoon, K is 4.8 WBC down slightly to 14k from 16k procalcitonin high at 23 sputum culture with gram negative bacilli no growth on blood cultures, no growth on urine culture discussed with ICU staff, will get PICC line, patient consented Review of Systems Review of Systems: All systems reviewed & are unremarkable except as noted in HPI & below Constitutional: + fatigue and + weakness; no fever, no chills and no sweats Respiratory: + cough, + dyspnea and + sputum production Cardiovascular: + edema; no chest pain Gastrointestinal: no abdominal pain, no nausea, no vomiting, no constipation and no diarrhea/loose stools Physical Exam Constitutional: WD/WN, vitals as above + morbidly obese Eyes: PERRL, conjunctivae normal, anicteric sclerae ENMT: external ear and nose normal, oropharynx normal Neck: trachea midline, no thyromegaly (tracheostomy with secretions) Respiratory: normal respiratory effort; no respiratory distress Auscultation: + diminished lung sounds and + rhonchi (bilaterally); no wheezes Cardiovascular: Rate/Rhythm: regular rate and regular rhythm Heart Sounds: normal S1 and normal S2; no murmur Extremities: normal capillary refill and + edema Gastrointestinal (Abdomen): normal bowel sounds, soft, nontender, no hepatosplenomegaly Musculoskeletal: Head/Neck/Chest: normocephalic and head atraumatic Extremities: + abnormal strength (diffusely weak, cannot move in bed) Skin: no rashes, warm and dry Neurologic: patellar DTR's 2+ bilat, sensation intact and PERRL, EOMI, accommodation nl, no face palsy, no dysarthria Psychiatric: Orientation: alert and oriented x 3 Affect: + flat affect Lymphatic: no cervical or axillary lymphadenopathy Results & Data Vital Signs (Past 12 Hours) Vital Signs Pulse Pulse Resp BP Pulse Ox 11/30/18 15:05 82 25 H 113/63 98 11/30/18 14:56 78 20 92 11/30/18 14:01 82 20 141/59 H 94 11/30/18 13:46 84 25 H 119/57 L 95 11/30/18 13:31 81 21 128/51 L 94 11/30/18 13:16 82 20 112/50 L 94 11/30/18 13:00 81 20 120/52 L 94 11/30/18 12:45 80 20 106/54 L 93 11/30/18 12:31 85 28 H 112/49 L 94 11/30/18 12:15 80 20 121/59 L 95 11/30/18 12:01 83 24 115/53 L 89 L 11/30/18 12:00 79 22 118/48 L 90 11/30/18 11:46 87 28 H 118/48 L 94 11/30/18 11:31 83 22 121/49 L 95 11/30/18 11:28 86 24 96 11/30/18 11:16 87 19 108/62 95 11/30/18 11:01 87 30 H 134/50 L 96 11/30/18 11:00 84 31 H 96 11/30/18 10:45 81 18 117/53 L 96 11/30/18 10:30 86 19 110/55 L 80 L 11/30/18 10:15 82 19 105/77 91 11/30/18 10:01 84 18 122/67 93 11/30/18 09:46 74 24 125/58 L 81 L 11/30/18 09:31 76 28 H 121/48 L 97 11/30/18 09:15 74 25 H 125/73 96 11/30/18 09:01 79 19 104/43 L 95 11/30/18 08:46 75 22 119/50 L 96 11/30/18 08:31 80 28 H 136/52 L 95 11/30/18 08:16 82 17 118/53 L 94 11/30/18 08:00 83 84 26 H 107/62 96 11/30/18 07:46 82 24 122/47 L 96 11/30/18 07:30 84 18 111/51 L 95 11/30/18 07:15 84 32 H 100/75 97 11/30/18 07:01 83 28 H 114/57 L 97 11/30/18 05:30 93 H 21 97/58 L 97 11/30/18 05:15 76 23 95/60 L 96 11/30/18 05:00 92 H 21 94/56 L 93 11/30/18 04:45 77 28 H 89/56 L 95 11/30/18 04:32 76 29 H 89/46 L 96 11/30/18 04:17 76 19 102/52 L 95 PG Care Time/CCT Total # of Minutes Spent Total Time Spent with Patient: Total time spent is greater than 50% in coordination of care (as documented) at patient's floor/unit and/or counseling patient: (1) Acute renal failure Acute renal failure type: unspecified Qualified Code(s): N17.9 - Acute kidney failure, unspecified (2) Pneumonia Laterality: bilateral Lung location: lower lobe of lung Pneumonia type: due to unspecified organism Qualified Code(s): J18.1 - Lobar pneumonia, unspecified organism
[2018-11-30 21:15] LABS: BUN Creatinine Ratio 15.5 (10-20); Calcium 8.6 mg/dl (8.5-10.1); Est GFR (African American) 14.6; Est GFR (Non-African American) 12.6; Potassium 4.4 mmol/L (3.5-5.1)
[2018-12-01] MEDS: VASOPRESSIN 20 UNITS in 0.9 % SODIUM CHLORIDE 100 ML IV SCH ×2 (00:01→07:52)
[2018-12-01] MEDS: INSULIN ASPART 100 UNITS/ML 3 ML PEN SC SCH ×5 (00:08→21:08)
[2018-12-01] MEDS: PIPERACILLIN/TAZOBACTAM 4.5 GM in DEXTROSE 5% 100 ML IV SCH ×2 (00:31→08:45)
[2018-12-01] MEDS: ALBUT/IPRATROP 3MG/0.5MG NEB 3 ML VIAL NEB SCH ×6 (02:30→22:51)
[2018-12-01 05:11] LABS: Hematocrit (blood only) 28.1 % (42-52); Hemoglobin 8.8 g/dL (14.0-18.0); Mean Corpuscular Hemoglobin 26.1 pg (25-34); Mean Corpuscular Hgb Conc 31.3 g/dL (32-36); Mean Corpuscular Volume 83.4 fL (80-100); Mean Platelet Volume 8.4 fL (7.4-10.4); Platelet Count 340 K/uL (130-400); RDW Coefficient of Variation 16.9 % (11.5-14.5); RDW Standard Deviation 51.4 fL (36.4-46.3); Red Blood Count 3.37 M/uL (4.7-6.1); White Blood Count 13.88 K/uL (4.8-10.8)
[2018-12-01 05:26] LABS: INR 1.8 (0.9-1.1); Prothrombin Time 17.7 Seconds (9.0-12.0)
[2018-12-01 05:30] LABS: Albumin Level 1.4 gm/dl (3.4-5.0); BUN Creatinine Ratio 18.3 (10-20); Calcium 8.6 mg/dl (8.5-10.1); Creatinine Clr Calc Pharmacy 31.7 ml/min; Est GFR (African American) 16.9; Est GFR (Non-African American) 14.6; Magnesium 2.2 mg/dl (1.8-2.4)
[2018-12-01 05:42] LABS: Albumin Globulin Ratio 0.3 (0.9-2); Globulin 5.1 gm/dl (2.5-4.0); Phosphorus 5.4 mg/dl (2.5-4.9); Total Protein 6.5 gm/dl (6.4-8.2)
--- NOTE | 2018-12-01 07:14 | Critical Care Progress Note ---
Date of Service December 01, 2018 Assessment & Plan (1) Sepsis associated hypotension: Reason Critically Ill: 63-year-old male presents from [facility]way facility with history long-term tracheostomy, inmobility, OHS, venous stasis, CHF admitted for septic shock, renal failure, supratherapeutic INR. Neuro - [facility] ICU: Negative Cardiac - CHFlast study from 2 years ago, reobtain and follow-up cardiac ultrasound on this admission -Bedside POC ultrasound appeared that patient had preserved ejection fraction -BNP elevated 7,000; We will hold home dose Lasix for now as patient is hypotensive and septic History of a flutterpatient currently paced rhythm on monitor and, has history of a flutter and was on Coumadin -We will continue to hold Coumadin for now, trending INRs Septic shockmultiple sources possible as patient has multiple pressure ulcers, history of multidrug resistant Pseudomonas, and UTI -Urine culture positive for gram-negative bacilli, follow-up final -Sputum culture grew multidrug-resistant Pseudomonas, started on ceftolozane/tazobactam, will follow up ID rec -MRSA PCR negative -Still requiring vasopressor, will wean as tolerate -Procalcitonin starting to trend down Respiratory - Hypoxic respiratory failurelikely mixed OHS versus CHF versus pneumonia - patient is on trach collar requiring 50% FiO2, patient's baseline O2 is 5 L -Patient has long-term tracheostomy, will use ventilator if indicated -Chest x-ray shows bibasilar opacities and small pleural effusions bilaterally -Holding Lasix for now for hypotension ADAM -We will continue nebs -See sepsis treatment above GI - Abdominal tendernessKUB negative for obstruction -Alkaline phosphatase and LFTs negative -Continue bowel regimen RENAL/LYTES - Acute renal failurepresents with creatinine 6, likely due to hypotension from sepsis versus post obstruction as chronic Fitch was obstructed on admission -Renal ultrasound limited due to body habitus, does suggest chronic renal disease -We will monitor with every 6 hours BMPs -Nephrology consult, will follow up recs, if unimproved patient may need dialysis in the near future -Avoid nephrotoxins Hyperkalemiagiven calcium gluconate injection and 10 insulin in D50 -Potassium remains high but stable, will monitor with routine BMPs and treat as appropriately - Chronic Fitch, changed in emergency department ENDO - No history of diabetes or thyroid disease ICU hypoglycemic protocol HEME - H&H stable, monitor routine CBCs Supratherapeutic INR-INR 8 on admission -Initial given IV vitamin K 5 mg and 1 unit FFP INR now corrected, may need anticoagulation in the near future as INR is now supratherapeutic, however patient still in sinus rhythm -No current signs of bleeding ID - Blood cultures negative Sputum speciated drug-resistant Pseudomonas, ceftolozane/tazobactam started after sensitivities resulted ID following Urine culture positive for gram-negative bacilli, awaiting final read LINES/IV ACCESS - Peripheral IVs, Fitch DVT PROPHYLAXIS - Heparin subcu I have personally spent 40 minutes of critical care time in the direct management of this patient. This is a life/limb threatening event. This includes time spent evaluating patient, direct bedside care, chart review, placing orders, interpretation of diagnostic studies, discussion with consultants, patient, and family members, as well as other required patient management activities. This time is exclusive of all separately billable procedures, and teaching time and separate from and in addition to any other critical care service time. Thank you for allowing us to participate in the care of this patient. Please refer to my attending physician's documentation for any further recommendations. (2) Acute renal failure: (3) Acute respiratory failure with hypoxia: (4) History of group B Streptococcus (GBS) infection: (5) Hyperkalemia: (6) Supratherapeutic INR: (7) Obesity hypoventilation syndrome: (8) Atrial fibrillation and flutter: Supervising Physician Co-Signing Physician Notes Patient seen and examined with Mario CAUSEY. Patient discussed on multidisciplinary rounds. Patient continues to be in septic shock requiring low-dose levophed. He is mentating well. His urine output has picked up. We have adjusted his map goals to greater than 60 in the hopes that we can wean off his Levophed. He does appear to be finally diuresing. He is net -1.5 L in the last 24 hours. His white count is trending down. His procalcitonin is trending down today to 19.9 from 23.06 yesterday. He does have multidrug-resistant Pseudomonas growing from his sputum. He is currently on Zosyn. We will discuss with ID about changing his antibiotics to Zerbaxa. He is also growing gram- negative rods from his urine. His ADAM is improving with diuresis. There may have been a component of postobstructive uropathy as well. Urology is consulted and seeing the patient. He does have an old trach that needs to be changed out. His albumin is 1.4. He is on Coumadin for atrial fibrillation. We are continuing to hold this at this present time given the clots seen initially in his urine. This should be restarted during this admission at a later date. He has numerous ulcerations throughout his body. He is nutritional status is generally extremely poor despite his severe morbid obesity. His overall prognosis in the long-term is extremely poor. Review of Systems Review of Systems: All systems reviewed & are unremarkable except as noted in HPI & below Physical Exam Eyes: PERRL, conjunctivae normal, anicteric sclerae ENMT: external ear and nose normal, oropharynx normal Neck: trachea midline, no thyromegaly Respiratory: normal respiratory effort Auscultation: + diminished lung sounds and + rhonchi Cardiovascular: Heart Sounds: normal S1 and normal S2 Vessels: no JVD Gastrointestinal (Abdomen): Inspection/Auscultation: + abdomen distended, normal bowel sounds and + abdominal edema Percussion/Palpation: + abdomen tender; abdomen not firm Skin: + skin tightening, + wound and + dry skin Neurologic: PERRL, EOMI, accommodation nl, no face palsy, no dysarthria Psychiatric: A+Ox3, euthymic affect Results & Data Vital Signs (Past 12 Hours) Vital Signs Temp Pulse Pulse Resp BP Pulse Ox 12/01/18 06:00 83 27 H 96/46 L 91 12/01/18 05:43 83 29 H 98/53 L 91 12/01/18 05:00 82 22 102/53 L 95 12/01/18 04:30 76 20 106/50 L 98 12/01/18 04:00 36.8 C 81 21 105/51 L 99 12/01/18 03:30 81 18 96/49 L 97 12/01/18 03:00 79 17 99/50 L 94 12/01/18 02:34 82 20 91 12/01/18 02:30 87 27 H 110/54 L 92 12/01/18 02:00 81 22 104/59 L 93 12/01/18 01:30 85 25 H 98/53 L 96 12/01/18 01:00 76 19 99/51 L 95 12/01/18 00:30 82 22 111/54 L 95 12/01/18 00:00 37.1 C 79 19 98/50 L 97 11/30/18 23:30 81 18 101/47 L 96 11/30/18 23:00 84 24 110/57 L 96 11/30/18 22:46 81 18 95 11/30/18 22:30 84 20 115/54 L 96 11/30/18 22:00 79 19 98/52 L 97 11/30/18 21:30 80 21 104/54 L 96 11/30/18 21:00 83 23 95/54 L 97 11/30/18 20:38 81 11/30/18 20:30 84 27 H 110/53 L 94 11/30/18 20:00 37 C 81 23 109/57 L 95 11/30/18 19:32 92 H 24 96 11/30/18 19:30 91 H 33 H 113/52 L 96 PG Care Time/CCT Total # of Minutes Spent Total Time Spent with Patient: Total time spent is greater than 50% in coordination of care (as documented) at patient's floor/unit and/or counseling patient: Critical Care Time: Yes Total Critical Care Time: 40 (1) Acute renal failure Acute renal failure type: unspecified Qualified Code(s): N17.9 - Acute kidney failure, unspecified
[2018-12-01] MEDS ORDERED: LEVOFLOXACIN/D5W 750 MG/150 ML BAG IV SCH (07:15)
--- NOTE | 2018-12-01 08:09 | Nephrology Progress Note ---
Date of Service December 01, 2018 Assessment & Plan (1) Acute renal failure: 63-year-old male with septic shock with multiple infectious source including chronic trach collar with history of recurrent respiratory infection with sputum positive for gram-negative patience. Persistently hypotensive since admission requiring multiple pressor support. Developed acute kidney injury and hyperkalemia with baseline decent renal function ( b/l cr 1.1-1.3). Creatinine on admission was 6.3 slightly improved to 5.7. Hemodynamically mediated ADAM with persistent hypotension in the setting of septic shock. Renal function continues to improve creatinine down to 4.0, electrolyte acceptable, volume status improving. --okay to use diuretics as needed however patient seems comfortable and has been having decent urine output, do not see any pressing need for diuretics at this time --close monitoring of renal function and the electrolyte --hopefully renal function will continue to improve with improved hemodynamic Will follow (2) Hyperkalemia: (3) Hyponatremia: (4) Chronic indwelling Fitch catheter: (5) Morbid obesity with BMI of 60.0-69.9, adult: (6) Sepsis associated hypotension: Aaliyah Rod Was seen examined in his room this morning. He feels about the same. Blood pressure slightly improved, on just 1 pressor now. Renal function continues to improve, creatinine down to 4.1. Electrolyte abnormality resolved, last potassium was 4.0. Has decent urine output. Review of Systems Review of Systems: All systems reviewed & are unremarkable except as noted in HPI & below Physical Exam Constitutional: + ill appearing, + morbidly obese and + lethargic; no acute distress Neck: Trach collar in place Respiratory: normal respiratory effort Auscultation: + diminished lung sounds Cardiovascular: RRR, no murmur, no edema Rate/Rhythm: regular rate and regular rhythm Heart Sounds: normal S1 and normal S2 Extremities: + edema Neurologic: moves all extremities and awake; not confused Psychiatric: A+Ox3, euthymic affect Results & Data Vital Signs (Past 12 Hours) Vital Signs Temp Pulse Pulse Pulse Resp BP Pulse Ox 12/01/18 07:30 79 22 91 12/01/18 06:00 83 27 H 96/46 L 91 12/01/18 05:43 83 29 H 98/53 L 91 12/01/18 05:00 82 22 102/53 L 95 12/01/18 04:30 76 20 106/50 L 98 12/01/18 04:00 36.8 C 81 21 105/51 L 99 12/01/18 03:30 81 18 96/49 L 97 12/01/18 03:00 79 17 99/50 L 94 12/01/18 02:34 82 20 91 12/01/18 02:30 87 27 H 110/54 L 92 12/01/18 02:00 81 22 104/59 L 93 12/01/18 01:30 85 25 H 98/53 L 96 12/01/18 01:00 76 19 99/51 L 95 12/01/18 00:30 82 22 111/54 L 95 12/01/18 00:00 37.1 C 79 19 98/50 L 97 11/30/18 23:30 81 18 101/47 L 96 11/30/18 23:00 84 24 110/57 L 96 11/30/18 22:46 81 18 95 11/30/18 22:30 84 20 115/54 L 96 11/30/18 22:00 79 19 98/52 L 97 11/30/18 21:30 80 21 104/54 L 96 11/30/18 21:00 83 23 95/54 L 97 11/30/18 20:38 81 11/30/18 20:30 84 27 H 110/53 L 94 PG Care Time/CCT Total # of Minutes Spent Total Time Spent with Patient: Total time spent is greater than 50% in coordination of care (as documented) at patient's floor/unit and/or counseling patient: (1) Acute renal failure Acute renal failure type: unspecified Qualified Code(s): N17.9 - Acute kidney failure, unspecified
[2018-12-01] MEDS: LEVOTHYROXINE SODIUM 100 MCG TABLET PO SCH (08:46)
[2018-12-01] MEDS: guaiFENesin 600 MG TABCR PO SCH ×2 (08:46→21:10)
[2018-12-01] MEDS: PANTOprazole 40 MG TAB PO SCH (08:46)
[2018-12-01] MEDS: SERTRALINE HCL 50 MG TABLET PO SCH (08:47)
[2018-12-01] MEDS: NYSTATIN POWDER 15GM BTL EXT SCH (08:47)
--- NOTE | 2018-12-01 10:25 | Infectious Disease Progress Nt ---
Date of Service December 01, 2018 Assessment & Plan (1) Sepsis associated hypotension: can hold additional vanco dosing, no gpc identified to date. Would suggest changing zosyn to Zerbaxa, renally dosed, 750mg IV Q8h for highly resistant pseudomonas from trach. this likely will treat gnr in urine culture as well, although ID/sensitivity pending. Blood cultures remain negative. Would give 7-10 days IV Zerbaxa. Subjective pt seen in followup, remains on norepi, also on zosyn, tolerating well. afebrile overnight. trach collar, no secretions, no cough, no resp distress. wbc improved to 13.8 creat also improving 4.1 today, UO adequate. procalcitonin 19. 8/21 trach collar growing highly resistant pseudomonas, sensitive to zosyn but LIBRA high at 64. Urine culture growing GNR, ID pending, blood cultures remain negative. denies cp, cough, sob, no abd pain, no n/v/d. Review of Systems Review of Systems: All systems reviewed & are unremarkable except as noted in HPI & below Physical Exam Constitutional: + morbidly obese; not ill appearing Eyes: PERRL, conjunctivae normal, anicteric sclerae ENMT: external ear and nose normal, oropharynx normal Neck: trachea midline Respiratory: normal respiratory effort; no respiratory distress and no labored breathing Auscultation: + diminished lung sounds and + rhonchi Cardiovascular: Rate/Rhythm: regular rate and regular rhythm Extremities: + pedal edema Gastrointestinal (Abdomen): normal bowel sounds, soft, nontender, no hepatosplenomegaly Inspection/Auscultation: abdomen normal to inspection; abdomen not distended Musculoskeletal: Head/Neck/Chest: + head abnormal to inspection, normocephalic and head atraumatic Skin: no rashes, warm and dry Psychiatric: Orientation: alert Results & Data Vital Signs (Past 12 Hours) Vital Signs Temp Pulse Pulse Pulse Resp BP BP 12/01/18 08:00 36.6 C 83 88 20 97/52 L 12/01/18 07:30 79 22 12/01/18 06:00 83 27 H 96/46 L 12/01/18 05:43 83 29 H 98/53 L 12/01/18 05:00 82 22 102/53 L 12/01/18 04:30 76 20 106/50 L 12/01/18 04:00 36.8 C 81 21 105/51 L 12/01/18 03:30 81 18 96/49 L 12/01/18 03:00 79 17 99/50 L 12/01/18 02:34 82 20 12/01/18 02:30 87 27 H 110/54 L 12/01/18 02:00 81 22 104/59 L 12/01/18 01:30 85 25 H 98/53 L 12/01/18 01:00 76 19 99/51 L 12/01/18 00:30 82 22 111/54 L 12/01/18 00:00 37.1 C 79 19 98/50 L 11/30/18 23:30 81 18 101/47 L 11/30/18 23:00 84 24 110/57 L 11/30/18 22:46 81 18 11/30/18 22:30 84 20 115/54 L Pulse Ox 12/01/18 08:00 94 12/01/18 07:30 91 12/01/18 06:00 91 12/01/18 05:43 91 12/01/18 05:00 95 12/01/18 04:30 98 12/01/18 04:00 99 12/01/18 03:30 97 12/01/18 03:00 94 12/01/18 02:34 91 12/01/18 02:30 92 12/01/18 02:00 93 12/01/18 01:30 96 12/01/18 01:00 95 12/01/18 00:30 95 12/01/18 00:00 97 11/30/18 23:30 96 11/30/18 23:00 96 11/30/18 22:46 95 11/30/18 22:30 96 Laboratory Results Microbiology 11/29/18 Unknown Sputum,Trach Gram Stain - Final 11/29/18 Unknown Sputum,Trach Sputum Culture - Preliminary Pseudomonas aeruginosa 11/30/18 02:05 Urine,Straight Cath Urine Culture - Preliminary Gram negative bacilli 11/29/18 10:34 Blood Aerobic Blood Culture - Preliminary No growth in Aerobic bottle after 24 hours. 11/29/18 10:34 Blood Anaerobic Blood Culture - Final 11/29/18 09:32 Blood Aerobic Blood Culture - Preliminary No growth in Aerobic bottle after 24 hours. 11/29/18 09:32 Blood Anaerobic Blood Culture - Preliminary No growth in Anaerobic bottle after 24 hours. PG Care Time/CCT Total # of Minutes Spent Total Time Spent with Patient: Total time spent is greater than 50% in coordination of care (as documented) at patient's floor/unit and/or counseling patient:
--- NOTE | 2018-12-01 10:34 | Urology Consultation ---
Date of Consultation December 01, 2018 Assessment & Plan (1) Chronic indwelling Davey catheter: Davey appears to be functioning upon exam today. Draining concentrated urine +sediment. Recommend continuation of Davey. Recommend hand irrigation with sterile water BID PRN with increased sediment. Recommend outpatient follow up with primary urologist after hospitalization for chronic Davey management. Please call our outpatient office to arrange appointment if needed. Thanks for allowing us to participate in the inpatient care of Mr. Gusman. Please contact us if we can assist further. History of Present Illness Attending Physician: Miguel Graves, History of Present Illness 63 YO critically ill male with multiple medical issues seen today in the ICU. Please see notes from primary team regarding his health issues. Urology consultation placed for evaluation of indwelling Davey. Per consultation request, difficulty irrigating due to sediment. Patient resides at assisted living facility. Per family member, Davey has been in place x several months. Unknown by family or patient if patient has established Urologist. Patient has never been seen by our inpatient or outpatient service. Davey changed in ER upon arrival. ADAM slowly improving since. No hydronephrosis on Renal US. Infectious disease managing antibiotics. Allergies Allergy/AdvReac Type Severity Reaction Status Date / Time cefepime Allergy Intermediate RASH Verified 11/29/18 10:01 latex Allergy Intermediate DERMITITIS Verified 11/29/18 10:01 aztreonam Allergy Mild RASH Verified 11/29/18 10:01 Home Medications Home Medications Medication Instructions Recorded Confirmed Type Calmoseptine 1 applic TOPICAL QID PRN 12/30/17 11/29/18 History Fleet Enema 118 ml ID DAILY PRN 12/30/17 11/29/18 History acetaminophen 325 mg PO Q6H PRN 12/30/17 11/29/18 History acetaminophen 650 mg PO DAILY PRN 12/30/17 11/29/18 History albuterol sulfate 3 ml INHALATION QID 12/30/17 11/29/18 History bisacodyl 10 mg ID DAILY PRN 12/30/17 11/29/18 History chlorhexidine gluconate 15 ml PO BID 12/30/17 11/29/18 History ferrous sulfate 325 mg PO DAILY 12/30/17 11/29/18 History furosemide 40 mg PO BID 12/30/17 11/29/18 History magnesium hydroxide [Milk of 30 ml PO HS PRN 12/30/17 11/29/18 History Magnesia] metoprolol succinate 25 mg PO DAILY 12/30/17 11/29/18 History nystatin 1 applic TOPICAL DAILY 12/30/17 11/29/18 History pantoprazole 40 mg PO DAILY 12/30/17 11/29/18 History simvastatin 10 mg PO PM 12/30/17 11/29/18 History tamsulosin 0.4 mg PO DAILY 12/30/17 11/29/18 History warfarin 5 mg PO Q OTHER DAY 01/10/18 11/29/18 History warfarin 7.5 mg PO Q OTHER DAY 01/10/18 11/29/18 History aspirin 81 mg PO DAILY 08/25/18 11/29/18 History sertraline 75 mg PO DAILY 08/25/18 11/29/18 History levothyroxine 100 mcg PO DAILY 11/29/18 11/29/18 History Patient History Medical History Hyperkalemia Hyponatremia Gait disorder History of group B Streptococcus (GBS) infection Acute respiratory failure with hypoxia Pneumonia (Acute) Acute renal failure (Acute) Heart failure, systolic, due to idiopathic cardiomyopathy (Chronic) "echo 12/01/15 - EF 35-39%, abnormal diastolic dysfunction" KEARA (obstructive sleep apnea) (Chronic) Venous insufficiency (Chronic) Hx MRSA infection (Chronic) "02/2016 in sputum" Obesity hypoventilation syndrome Atrial fibrillation and flutter (Chronic) Indwelling Davey catheter present Pacemaker (Acute) 2011 - SSS Tracheostomy tube present (Acute) 2015 - / obesity hypoventilation syndrome Ventral hernia (Acute) Anemia Asthma Atrial fibrillation on warfarin BPH (benign prostatic hyperplasia) 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 catheter Bacteremia due to group B Streptococcus 09/2017 - requiring indefinite oral suppressive antibiotic therapy Cardiomyopathy Chronic edema BLLE Chronic indwelling Davey catheter Chronic respiratory failure Chronic venous stasis Congestive heart failure Generalized weakness History of DVT (deep vein thrombosis) Hyperlipidemia Lymphedema Major depressive disorder Morbid obesity Obesity hypoventilation syndrome On home oxygen therapy Recurrent UTI Sleep apnea Surgical History Status post placement of cardiac pacemaker H/O tracheostomy (Chronic) History of bronchoscopy w/ trach change 01/2018 [facility] History of cholecystectomy History of hernia repair Family History Other No significant family history Social History Preferred Language: Divehi Communication Ability: Effective Form Setter Required: No Beliefs That Will Affect Care: None Current Living Situation: Group Home Current Living Situation Comment: resident at [facility] Other Information That Helps Us Care for You: Yes Feels Safe at Home: Yes Safety Concerns: Feels Safe At This Time Smoking Status: Never smoker Hx Alcohol Use: No Hx Substance Use: No Review of Systems Review of Systems: Unobtainable due to critical illness status. Physical Exam Physical Exam: Ill appearing, morbidly obese. Neck: +trach. Resp: increased resp. effort. : Davey in place, patent, draining concentrated urine +sediment. Grossly normal phallus. Results & Data Vital Signs (Past 12 Hours) Vital Signs Temp Pulse Pulse Pulse Resp BP BP 12/01/18 10:01 78 26 H 12/01/18 10:00 74 25 H 93/44 L 12/01/18 09:49 81 25 H 103/56 L 12/01/18 09:30 79 25 H 85/44 L 12/01/18 09:00 83 19 85/49 L 12/01/18 08:31 83 30 H 12/01/18 08:30 79 26 H 95/51 L 12/01/18 08:00 36.6 C 80 88 22 97/48 L 97/52 L 12/01/18 07:30 83 79 21 97/52 L 12/01/18 07:01 85 23 12/01/18 07:00 84 22 97/50 L 12/01/18 06:31 81 20 12/01/18 06:30 85 24 91/46 L 12/01/18 06:00 83 27 H 96/46 L 12/01/18 05:43 83 29 H 98/53 L 12/01/18 05:00 82 22 102/53 L 12/01/18 04:30 76 20 106/50 L 12/01/18 04:00 36.8 C 81 21 105/51 L 12/01/18 03:30 81 18 96/49 L 12/01/18 03:00 79 17 99/50 L 12/01/18 02:34 82 20 12/01/18 02:30 87 27 H 110/54 L 12/01/18 02:00 81 22 104/59 L 12/01/18 01:30 85 25 H 98/53 L 12/01/18 01:00 76 19 99/51 L 12/01/18 00:30 82 22 111/54 L 12/01/18 00:00 37.1 C 79 19 98/50 L 11/30/18 23:30 81 18 101/47 L 11/30/18 23:00 84 24 110/57 L 11/30/18 22:46 81 18 11/30/18 22:30 84 20 115/54 L Pulse Ox 12/01/18 10:01 82 L 12/01/18 10:00 83 L 12/01/18 09:49 91 12/01/18 09:30 93 12/01/18 09:00 93 12/01/18 08:31 92 12/01/18 08:30 94 12/01/18 08:00 94 12/01/18 07:30 91 12/01/18 07:01 93 12/01/18 07:00 92 12/01/18 06:31 91 12/01/18 06:30 91 12/01/18 06:00 91 12/01/18 05:43 91 12/01/18 05:00 95 12/01/18 04:30 98 12/01/18 04:00 99 12/01/18 03:30 97 12/01/18 03:00 94 12/01/18 02:34 91 12/01/18 02:30 92 12/01/18 02:00 93 12/01/18 01:30 96 12/01/18 01:00 95 12/01/18 00:30 95 12/01/18 00:00 97 11/30/18 23:30 96 11/30/18 23:00 96 11/30/18 22:46 95 11/30/18 22:30 96
[2018-12-01] MEDS ORDERED: [UNRECOGNIZED DRUG - OTHER] IV SCH (12:00)
[2018-12-01] MEDS: CEFTOLOZANE/TAZOBACTAM 750 MG in DEXTROSE 5% 100 ML IV SCH ×2 (13:24→21:09)
[2018-12-01] MEDS: HEPARIN SOD 5,000 UNIT/0.5 ML VIAL SQ SCH ×2 (13:24→21:10)
--- NOTE | 2018-12-01 15:16 | Hospitalist Progress Note ---
Date of Service December 01, 2018 Assessment & Plan (1) Septic shock: likely due to pneumonia but also could be due to UTI titrated off of Vasopressin, weaning Levophed today adequately fluid resuscitated at this point antibiotics changed to Zerbaxa ID following sputum culture Pseudomonas, highly resistant urine culture GNR no growth in blood cultures at 48 hours (2) Acute respiratory failure with hypoxia: due to pneumonia continue oxygen via trach on FiO2 40% no respiratory distress again today some thick secretions that need to be suctioned but otherwise okay (3) Pneumonia: continue respiratory care Vanco and Zosyn initially, changed to Zerbaxa (Ceftolozane/Tazobactam) on 12/01 Dr. Morales recommends 7-10 days of IV Zerbaxa nebulizers sputum culture : resistant strain of Pseudomonas WBC down to 13k (4) Acute renal failure: -Creatinine baseline appears to be around 1.5, CR = 6.23, BUN = 70 on admission likely from prerenal or ATN Cr down further to 4.1 making more urine via davey nephrology following, appreciate recommendations from Dr. Ivory (5) Obesity hypoventilation syndrome: -Likely contributing to patient's poor respiratory status (6) Asthma: -History of such no wheezing continue nebulizers (7) H/O tracheostomy: -S/P pacemaker insertion in 2016 -Tracheostomy care plan to change tracheostomy on 12/02 (8) Atrial fibrillation and flutter: -Chronic, holding Xarelto -Appears to be rate controlled currently, holding beta-blockade due to hypotension, monitor for rebound tachycardia (9) Supratherapeutic INR: reversed with vitamin k and FFP INR down to 1.8 from 8 on admission (10) Status post placement of cardiac pacemaker: -Completed in 2016, follows with Dr. Baeza as an outpatient (11) Heart failure, systolic, due to idiopathic cardiomyopathy: -Chronic systolic CHF in the setting of pneumonia -NT-Pro-BNP elevated at time of admission -Patient hypotensive likely secondary to sepsis from pneumonia-patient requiring pressors to maintain BP, no diuretics at this time -Hold Lasix, Toprol succinate 25 mg daily -Allow ASA 81 mg starting tomorrow monitor volume status closely, especially with ADAM and low urine output (12) Hx MRSA infection: on Vancomcyin no gram positives growing on culture (13) History of group B Streptococcus (GBS) infection: - Hx of such - Previously followed with Dr. Morales in July, August and September of 2017 for recurrent infection - Wound consult for area on R calf - Culture wound (14) DVT of lower extremity (deep venous thrombosis): -History of such -Holding Xarelto (15) Gait disorder: -Chronic -PT/OT consults (16) Hyponatremia: -Sodium 132 upon admission improved to 136 past two days (17) Hyperkalemia: -Potassium elevated at 5.8 at time of admission resolved with treatment of ADAM (18) KEARA (obstructive sleep apnea): -Chronic (19) Venous insufficiency: -Chronic -Wound consult for right calf wound -Chronic venous stasis changes over bilateral lower extremities (20) Morbid obesity with BMI of 60.0-69.9, adult: - Diet and exercise will need to be encouraged upon discharge (21) DVT prophylaxis: INR therapeutic Subjective patient doing a little better today his only complaint is tracheal secretions, asking to be suctioned no fever reviewed culture results, sputum culture growing highly resistant Pseudomonas urine culture growing gram negative patience >100k appreciate ID recommendations, stop Vanco and Zosyn, start on Zerbaxa to cover the Pseudomonas and other GNR WBC trending down further to 13k Cr down to 4.1 today, making more urine, K is stable at 4.0 INR down to 1.[address] Ivory discussed with ICU staff Review of Systems Review of Systems: All systems reviewed & are unremarkable except as noted in HPI & below Constitutional: + fatigue and + weakness; no fever, no chills and no sweats Respiratory: + cough, + dyspnea and + sputum production Cardiovascular: + edema; no chest pain Physical Exam Constitutional: WD/WN, vitals as above + morbidly obese Eyes: PERRL, conjunctivae normal, anicteric sclerae ENMT: external ear and nose normal, oropharynx normal Neck: trachea midline, no thyromegaly (tracheostomy with secretions) Respiratory: normal respiratory effort; no respiratory distress Auscultation: + diminished lung sounds and + rhonchi (bilaterally); no wheezes Cardiovascular: Rate/Rhythm: regular rate and regular rhythm Heart Sounds: normal S1 and normal S2; no murmur Extremities: normal capillary refill and + edema Gastrointestinal (Abdomen): normal bowel sounds, soft, nontender, no hepatosplenomegaly Musculoskeletal: Head/Neck/Chest: normocephalic and head atraumatic Extremities: + abnormal strength (diffusely weak, cannot move in bed) Skin: no rashes, warm and dry Neurologic: patellar DTR's 2+ bilat, sensation intact and PERRL, EOMI, accommodation nl, no face palsy, no dysarthria Psychiatric: Orientation: alert and oriented x 3 Affect: + flat affect Lymphatic: no cervical or axillary lymphadenopathy Results & Data Vital Signs (Past 12 Hours) Vital Signs Temp Pulse Pulse Resp BP BP Pulse Ox 12/01/18 14:24 81 27 H 95 12/01/18 13:01 76 21 95 12/01/18 13:00 76 22 89/49 L 94 12/01/18 12:31 79 25 H 93 12/01/18 12:30 79 26 H 92/54 L 93 12/01/18 12:01 75 20 91 12/01/18 12:00 79 19 100/48 L 94 12/01/18 11:31 81 27 H 90 12/01/18 11:30 77 28 H 103/51 L 90 12/01/18 11:01 76 20 91 12/01/18 11:00 77 22 100/52 L 90 12/01/18 10:49 79 28 H 90 12/01/18 10:31 77 22 88 L 12/01/18 10:30 75 24 101/49 L 88 L 12/01/18 10:01 78 26 H 82 L 12/01/18 10:00 74 25 H 93/44 L 83 L 12/01/18 09:49 81 25 H 103/56 L 91 12/01/18 09:30 79 25 H 85/44 L 93 12/01/18 09:00 83 19 85/49 L 93 12/01/18 08:31 83 30 H 92 12/01/18 08:30 79 26 H 95/51 L 94 12/01/18 08:00 36.6 C 80 88 22 97/48 L 97/52 L 94 12/01/18 07:30 83 79 21 97/52 L 91 12/01/18 07:01 85 23 93 12/01/18 07:00 84 22 97/50 L 92 12/01/18 06:31 81 20 91 12/01/18 06:30 85 24 91/46 L 91 12/01/18 06:00 83 27 H 96/46 L 91 12/01/18 05:43 83 29 H 98/53 L 91 12/01/18 05:00 82 22 102/53 L 95 12/01/18 04:30 76 20 106/50 L 98 12/01/18 04:00 36.8 C 81 21 105/51 L 99 12/01/18 03:30 81 18 96/49 L 97 Laboratory Results Laboratory Results - last 24 hr 11/30/18 11/30/18 11/30/18 06:46 12:12 17:40 WBC RBC Hgb Hct MCV MCH MCHC RDW Std Deviation RDW Coeff of Lexy Plt Count MPV PT INR Sodium Potassium Chloride Carbon Dioxide Anion Gap BUN Creatinine Est Cr Clr Drug Dosing Est GFR ( Amer) Est GFR (Non-Af Amer) BUN/Creatinine Ratio Glucose POC Glucose 96 112 H 112 H Lactate Calcium Phosphorus Magnesium Total Bilirubin AST ALT Alkaline Phosphatase Total Protein Albumin Globulin Albumin/Globulin Ratio Procalcitonin 11/30/18 12/01/18 12/01/18 20:29 04:45 04:45 WBC 13.88 H RBC 3.37 L Hgb 8.8 L Hct 28.1 L MCV 83.4 MCH 26.1 MCHC 31.3 L RDW Std Deviation 51.4 H RDW Coeff of Lexy 16.9 H Plt Count 340 MPV 8.4 PT INR Sodium 136 136 Potassium 4.4 4.0 Chloride 97 L 97 L Carbon Dioxide 30 30 Anion Gap 9.0 9.0 BUN 71 H 75 H Creatinine 4.64 H* D 4.10 H D Est Cr Clr Drug Dosing 28.0 31.7 Est GFR ( Amer) 14.6 16.9 Est GFR (Non-Af Amer) 12.6 14.6 BUN/Creatinine Ratio 15.5 18.3 Glucose 111 H 105 H POC Glucose Lactate Calcium 8.6 8.6 Phosphorus 5.4 H Magnesium 2.2 Total Bilirubin 1.0 D AST 16 ALT 11 L Alkaline Phosphatase 84 Total Protein 6.5 Albumin 1.4 L Globulin 5.1 H Albumin/Globulin Ratio 0.3 L Procalcitonin 12/01/18 12/01/18 12/01/18 04:45 06:37 07:42 WBC RBC Hgb Hct MCV MCH MCHC RDW Std Deviation RDW Coeff of Lexy Plt Count MPV PT 17.7 H INR 1.8 H Sodium Potassium Chloride Carbon Dioxide Anion Gap BUN Creatinine Est Cr Clr Drug Dosing Est GFR ( Amer) Est GFR (Non-Af Amer) BUN/Creatinine Ratio Glucose POC Glucose 113 H Lactate 0.9 Calcium Phosphorus Magnesium Total Bilirubin AST ALT Alkaline Phosphatase Total Protein Albumin Globulin Albumin/Globulin Ratio Procalcitonin 12/01/18 12/01/18 07:42 11:14 WBC RBC Hgb Hct MCV MCH MCHC RDW Std Deviation RDW Coeff of Lexy Plt Count MPV PT INR Sodium Potassium Chloride Carbon Dioxide Anion Gap BUN Creatinine Est Cr Clr Drug Dosing Est GFR ( Amer) Est GFR (Non-Af Amer) BUN/Creatinine Ratio Glucose POC Glucose 111 H Lactate Calcium Phosphorus Magnesium Total Bilirubin AST ALT Alkaline Phosphatase Total Protein Albumin Globulin Albumin/Globulin Ratio Procalcitonin 19.94 H Medications Administered Current Inpatient Medications Acetaminophen (Tylenol) 650 mg PO Q4H PRN PRN Reason: Moderate Pain Stop: 12/29/18 11:45 Last Admin: 11/29/18 19:25 Dose: 650 mg Documented by: Albuterol (Duoneb) 3 ml NEB Q4R MI Stop: 12/29/18 14:59 Last Admin: 12/01/18 14:14 Dose: 3 ml Documented by: Dextrose (Dextrose 50%) 25 - 50 ml IV UD PRN; Protocol PRN Reason: Hypoglycemia Protocol Stop: 12/30/18 09:44 Glucagon (Glucagen) 1 mg IM UD PRN; Protocol PRN Reason: Hypoglycemia Protocol Stop: 12/30/18 09:44 Glucose (Glucose 40%) 15 - 30 gm PO UD PRN; Protocol PRN Reason: Hypoglycemia Protocol Stop: 12/30/18 09:44 Glucose (Dex4 Glucose) 4 - 8 tabs PO UD PRN; Protocol PRN Reason: Hypoglycemia Protocol Stop: 12/30/18 09:44 Guaifenesin (Mucinex) 1,200 mg PO Q12 MI Stop: 12/29/18 20:59 Last Admin: 12/01/18 08:46 Dose: 1,200 mg Documented by: Heparin Sodium (Porcine) (Heparin Sodium (Porcine)) 5,000 units SQ Q8 MI Stop: 12/31/18 13:59 Last Admin: 12/01/18 13:24 Dose: Not Given Documented by: Norepinephrine Bitartrate 8 mg (/ Dextrose) 508 mls @ 11.63 mls/hr IV .Q24H MI; Protocol Stop: 12/29/18 12:14 Last Titration: 12/01/18 14:41 Dose: 0 mcg/kg/min, 0 mls/hr Documented by: Sodium Chloride (Nss) 250 mls @ 15 mls/hr IV .[id number] PRN PRN Reason: For Transfusion Stop: 12/29/18 13:57 Ceftolozane/Tazobactam 750 mg/ (Dextrose) 105.7 mls @ 111.4 mls/hr IV Q8H [facility] Stop: 12/11/18 05:27 Last Infusion: 12/01/18 14:41 Dose: Infused Documented by: Insulin Aspart (Novolog Flexpen) 0 units SC Q6 [facility] Stop: 12/30/18 11:59 Last Admin: 12/01/18 11:21 Dose: Not Given Documented by: Levothyroxine Sodium (Synthroid) 100 mcg PO DAILYBB [facility] Stop: 12/30/18 06:29 Last Admin: 12/01/18 08:46 Dose: 100 mcg Documented by: Miscellaneous (Carbohydrates For Hypoglycemia) 15 - 30 gm PO UD PRN PRN Reason: Hypoglycemia Treatment Stop: 12/30/18 09:44 Nystatin (Mycostatin) 1 appln EXT DAILY [facility] Stop: 12/30/18 08:59 Last Admin: 12/01/18 08:47 Dose: Not Given Documented by: Ondansetron HCl (Zofran) 4 mg IV Q4H PRN PRN Reason: Nausea And Vomiting Stop: 12/29/18 11:45 Last Admin: 11/29/18 19:25 Dose: 4 mg Documented by: Pantoprazole Sodium (Protonix) 40 mg PO DAILY [facility] Stop: 12/30/18 08:59 Last Admin: 12/01/18 08:46 Dose: 40 mg Documented by: Sertraline HCl (Zoloft) 75 mg PO DAILY [facility] Stop: 12/30/18 08:59 Last Admin: 12/01/18 08:47 Dose: 75 mg Documented by: PG Care Time/CCT Total # of Minutes Spent Total Time Spent with Patient: Total time spent is greater than 50% in coordination of care (as documented) at patient's floor/unit and/or counseling patient: (1) Acute renal failure Acute renal failure type: unspecified Qualified Code(s): N17.9 - Acute kidney failure, unspecified (2) Pneumonia Laterality: bilateral Lung location: lower lobe of lung Pneumonia type: due to unspecified organism Qualified Code(s): J18.1 - Lobar pneumonia, unspecified organism
[2018-12-01] MEDS ORDERED: Nursing to Pharmacy Communication ONE (20:42)
[2018-12-02] MEDS: ALBUT/IPRATROP 3MG/0.5MG NEB 3 ML VIAL NEB SCH ×6 (03:08→23:04)
[2018-12-02] MEDS: CEFTOLOZANE/TAZOBACTAM 750 MG in DEXTROSE 5% 100 ML IV SCH ×3 (04:12→21:04)
[2018-12-02 05:00] LABS: Hematocrit (blood only) 24.6 % (42-52); Hemoglobin 7.7 g/dL (14.0-18.0); Mean Corpuscular Hgb Conc 31.3 g/dL (32-36); Mean Corpuscular Volume 83.1 fL (80-100); Mean Platelet Volume 8.9 fL (7.4-10.4); Platelet Count 334 K/uL (130-400); RDW Coefficient of Variation 16.9 % (11.5-14.5); RDW Standard Deviation 51.4 fL (36.4-46.3); Red Blood Count 2.96 M/uL (4.7-6.1); White Blood Count 13.92 K/uL (4.8-10.8)
[2018-12-02 05:18] LABS: INR 2.1 (0.9-1.1); Prothrombin Time 20.5 Seconds (9.0-12.0)
[2018-12-02 05:32] LABS: Albumin Globulin Ratio 0.3 (0.9-2); Albumin Level 1.3 gm/dl (3.4-5.0); BUN Creatinine Ratio 24.7 (10-20); Calcium 8.4 mg/dl (8.5-10.1); Creatinine Clr Calc Pharmacy 42.9 ml/min; Est GFR (African American) 24.4; Globulin 4.8 gm/dl (2.5-4.0); Total Protein 6.1 gm/dl (6.4-8.2)
[2018-12-02 05:35] LABS: Phosphorus 4.3 mg/dl (2.5-4.9)
[2018-12-02] MEDS: NOREPINEPHRINE BIT INJ 8 MG in DEXTROSE 5% 500 ML IV SCH (05:45)
[2018-12-02 06:06] LABS: Potassium 3.7 mmol/L (3.5-5.1)
[2018-12-02] MEDS: HEPARIN SOD 5,000 UNIT/0.5 ML VIAL SQ SCH (06:06)
[2018-12-02] MEDS: LEVOTHYROXINE SODIUM 100 MCG TABLET PO SCH (06:07)
[2018-12-02 06:11] LABS: Magnesium 2.3 mg/dl (1.8-2.4)
[2018-12-02] MEDS: INSULIN ASPART 100 UNITS/ML 3 ML PEN SC SCH ×4 (07:57→21:08)
[2018-12-02] MEDS: guaiFENesin 600 MG TABCR PO SCH ×2 (08:00→20:59)
[2018-12-02] MEDS: SERTRALINE HCL 50 MG TABLET PO SCH (08:01)
[2018-12-02] MEDS: PANTOprazole 40 MG TAB PO SCH (08:01)
[2018-12-02] MEDS: NYSTATIN POWDER 15GM BTL EXT SCH (08:01)
--- NOTE | 2018-12-02 11:08 | Nephrology Progress Note ---
Date of Service December 02, 2018 Assessment & Plan (1) Acute renal failure: 63-year-old male with septic shock with multiple infectious source including chronic trach collar with history of recurrent respiratory infection with sputum positive for gram-negative patience. Persistently hypotensive since admission requiring multiple pressor support. Developed acute kidney injury and hyperkalemia with baseline decent renal function ( b/l cr 1.1-1.3). Creatinine on admission was 6.3 slightly improved to 5.7. Hemodynamically mediated ADAM with persistent hypotension in the setting of septic shock. Acute kidney injury resolving rapidly, creatinine down to 3.0, electrolyte normal. Blood pressure a acceptable, off of pressors. Volume status acceptable, has been having decent urine output --okay to use diuretics as needed however patient seems comfortable and has been having decent urine output, do not see any pressing need for diuretics at this time --expect renal function to continue to improve and creatinine reached baseline pretty soon, continue to monitor renal function electrolyte while inpatient --avoid nephrotoxic medications Will sign off, however will be available if there is any further worsening of renal function or any other further assistance needed. Thank you for the consultation. (2) Hyperkalemia: (3) Hyponatremia: (4) Chronic indwelling Fitch catheter: (5) Morbid obesity with BMI of 60.0-69.9, adult: (6) Sepsis associated hypotension: Aaliyah Rod Was seen examined in his room this morning. He feels better, Blood pressure 50, off of pressors. Renal function continues to improve, creatinine down to 3.0 Electrolyte abnormality resolved, last potassium was 4.0. Has decent urine output. Review of Systems Review of Systems: All systems reviewed & are unremarkable except as noted in HPI & below Physical Exam Constitutional: WD/WN, vitals as above + morbidly obese; no acute distress Respiratory: normal respiratory effort Auscultation: + diminished lung sounds Cardiovascular: RRR, no murmur, no edema Rate/Rhythm: regular rate and regular rhythm Heart Sounds: normal S1 and normal S2 Extremities: + edema Neurologic: moves all extremities and awake; not confused Psychiatric: A+Ox3, euthymic affect Results & Data Vital Signs (Past 12 Hours) Vital Signs Temp Pulse Pulse Resp BP Pulse Ox 12/02/18 09:00 81 17 94 12/02/18 08:30 37.2 C 12/02/18 08:01 82 17 105/58 L 98 12/02/18 07:41 81 18 94 12/02/18 07:05 78 12/02/18 07:00 75 19 111/55 L 99 12/02/18 06:00 76 24 98/49 L 98 12/02/18 05:00 75 26 H 103/48 L 97 12/02/18 04:00 36.5 C 72 16 104/48 L 99 12/02/18 03:11 87 23 95 12/02/18 03:00 85 29 H 98/52 L 93 12/02/18 02:00 82 18 101/52 L 94 12/02/18 01:00 77 19 94/51 L 97 12/02/18 00:02 75 19 91/50 L 95 PG Care Time/CCT Total # of Minutes Spent Total Time Spent with Patient: Total time spent is greater than 50% in coordination of care (as documented) at patient's floor/unit and/or counseling patient: (1) Acute renal failure Acute renal failure type: unspecified Qualified Code(s): N17.9 - Acute kidney failure, unspecified
[2018-12-02 11:11] LABS: Hematocrit (blood only) 24.5 % (42-52); Hemoglobin 7.7 g/dL (14.0-18.0); Mean Corpuscular Hemoglobin 26.5 pg (25-34); Mean Corpuscular Hgb Conc 31.4 g/dL (32-36); Mean Corpuscular Volume 84.2 fL (80-100); Mean Platelet Volume 8.3 fL (7.4-10.4); Platelet Count 298 K/uL (130-400); RDW Coefficient of Variation 16.9 % (11.5-14.5); RDW Standard Deviation 51.9 fL (36.4-46.3); Red Blood Count 2.91 M/uL (4.7-6.1); White Blood Count 14.32 K/uL (4.8-10.8)
--- NOTE | 2018-12-02 11:12 | Critical Care Progress Note ---
Date of Service December 02, 2018 Assessment & Plan (1) Sepsis associated hypotension: Patient found to have ESBL Klebsiella pneumonia and is urine and pseudomonas aeruginosa that is resistant to his sputum. He is currently on Zerbaxa. His procalcitonin is trending down. He is no longer requiring any pressors. I changed out his tracheostomy today. His old tracheostomy had the pilot plant operator helper bulb cut off because he does not like his cuff inflated. The old tracheostomy appeared to have encrusted secretions in the tubing. He now has a size [address], which was the same type that he had prior. He needs continued regular trach care. He needs substantial weight loss moving forward. Continue Protonix daily. He did have some drop in his hemoglobin which may just be related to frequent blood draws and wound seepage. Repeat hemoglobin at 11. Hold DVT prophylaxis given that his INR is 2.1. I suspect his INR is fluctuating due to him being on antibiotics. We have been holding his Coumadin. I discussed with him regarding DNR/DNI status, however, he said that he would prefer to be a full code at this present time. The family was not present at bedside for further discussion. He can be transferred to the floor with telemetry. (2) Acute renal failure: (3) Acute respiratory failure with hypoxia: (4) History of group B Streptococcus (GBS) infection: (5) Hyperkalemia: (6) Supratherapeutic INR: (7) Obesity hypoventilation syndrome: (8) Atrial fibrillation and flutter: Subjective Patient feels that he is doing overall slightly better. He still has occasional abdominal pain. He has had no fevers overnight. He has been eating well. No nausea or vomiting. Physical Exam Constitutional: Morbidly obese. Difficult to understand due to tracheostomy in place. Numerous wounds throughout his body. Eyes: PERRL, conjunctivae normal, anicteric sclerae EOM intact bilaterally ENMT: external ear and nose normal, oropharynx normal Neck: trachea midline and + tracheostomy present Respiratory: normal respiratory effort, lungs clear to auscultation Cardiovascular: RRR, no murmur, no edema 3+ pitting edema in his lower extremities bilaterally. Gastrointestinal (Abdomen): normal bowel sounds, soft, nontender, no hepatosplenomegaly Musculoskeletal: no cyanosis or clubbing, extremities motor strength 5/5 Skin: Numerous areas of tinea cruris. Various wounds in various stages along the posterior aspect. Neurologic: PERRL, EOMI, accommodation nl, no face palsy, no dysarthria Results & Data Vital Signs (Past 12 Hours) Vital Signs Temp Pulse Pulse Resp BP Pulse Ox 12/02/18 09:00 81 17 94 12/02/18 08:30 99.0 F 12/02/18 08:01 82 17 105/58 L 98 12/02/18 07:41 81 18 94 12/02/18 07:05 78 12/02/18 07:00 75 19 111/55 L 99 12/02/18 06:00 76 24 98/49 L 98 12/02/18 05:00 75 26 H 103/48 L 97 12/02/18 04:00 97.7 F 72 16 104/48 L 99 12/02/18 03:11 87 23 95 12/02/18 03:00 85 29 H 98/52 L 93 12/02/18 02:00 82 18 101/52 L 94 12/02/18 01:00 77 19 94/51 L 97 12/02/18 00:02 75 19 91/50 L 95 PG Care Time/CCT Total # of Minutes Spent Total Time Spent with Patient: Total time spent is greater than 50% in coordination of care (as documented) at patient's floor/unit and/or counseling patient: (1) Acute renal failure Acute renal failure type: unspecified Qualified Code(s): N17.9 - Acute kidney failure, unspecified
--- NOTE | 2018-12-02 13:30 | Hospitalist Progress Note ---
Date of Service December 02, 2018 Assessment & Plan (1) Septic shock: likely due to pneumonia with Pseudomonas but also Klebsiella ESBL UTI titrated off of Vasopressin and Levophed, BP stable today adequately fluid resuscitated at this point antibiotics changed to Zerbaxa on 12/01 ID following no growth in blood cultures at 72 hours (2) Acute respiratory failure with hypoxia: due to pneumonia continue oxygen via trach on FiO2 40% no respiratory distress again today less secretions today (3) Pneumonia: continue respiratory care Vanco and Zosyn initially, changed to Zerbaxa (Ceftolozane/Tazobactam) on 12/01 Dr. Morales recommends 7-10 days of IV Zerbaxa nebulizers sputum culture : resistant strain of Pseudomonas WBC stable at 14k (4) UTI (urinary tract infection): urine culture growing Klebsiella ESBL as well as another gram negative continue on Zerbaxa ID following (5) Acute renal failure: -Creatinine baseline appears to be around 1.5, CR = 6.23, BUN = 70 on admission likely from prerenal or ATN Cr down further to 3 today making more urine via davey, lots of sediment nephrology following, appreciate recommendations from Dr. Ivory, she will sign off (6) Anemia: Hb drifting down to 7.7 no signs of bleeding no reason for transfusion, would be hesitant to do so unless absolutely necessary BP is stable off pressors repeat tomorrow (7) Obesity hypoventilation syndrome: -Likely contributing to patient's poor respiratory status (8) Asthma: -History of such no wheezing continue nebulizers (9) H/O tracheostomy: -S/P pacemaker insertion in 2016 -Tracheostomy care changed tracheostomy on 12/02 (10) Atrial fibrillation and flutter: -Chronic, holding Xarelto -Appears to be rate controlled currently, holding beta-blockade due to hypotension, monitor for rebound tachycardia (11) Supratherapeutic INR: reversed with vitamin k and FFP INR 2.1 from 8 on admission (12) Status post placement of cardiac pacemaker: -Completed in 2015, follows with Dr. Baeza as an outpatient (13) Heart failure, systolic, due to idiopathic cardiomyopathy: -Chronic systolic CHF in the setting of pneumonia -NT-Pro-BNP elevated at time of admission -Patient hypotensive likely secondary to sepsis from pneumonia-patient requiring pressors to maintain BP, no diuretics at this time -Hold Lasix, Toprol succinate 25 mg daily -Allow ASA 81 mg starting tomorrow monitor volume status closely, especially with ADAM and low urine output (14) Hx MRSA infection: on Vancomcyin no gram positives growing on culture (15) History of group B Streptococcus (GBS) infection: - Hx of such - Previously followed with Dr. Morales in July, August and September of 2017 for recurrent infection - Wound consult for area on R calf - Culture wound (16) DVT of lower extremity (deep venous thrombosis): -History of such -Holding Xarelto (17) Gait disorder: -Chronic -PT/OT consults (18) Hyponatremia: -Sodium 132 upon admission improved to 136 past two days (19) Hyperkalemia: -Potassium elevated at 5.8 at time of admission resolved with treatment of ADAM (20) KEARA (obstructive sleep apnea): -Chronic (21) Venous insufficiency: -Chronic -Wound consult for right calf wound -Chronic venous stasis changes over bilateral lower extremities (22) Morbid obesity with BMI of 60.0-69.9, adult: - Diet and exercise will need to be encouraged upon discharge (23) DVT prophylaxis: INR therapeutic Subjective no major issues today, he is eating, taking medications breathing is improved, less secretions discussed with ICU, okay with going to telemetry titrated off of Levophed this morning reviewed labs, Hb trending down further to 7.7, no signs of bleeding WBC is stable at 14k INR is 2.1 Cr down to 3.03 and K is 3.7 urine culture growing Klebsiella ESBL discussed with nephrology, they will sign off as renal function showing signs of recovery Review of Systems Review of Systems: All systems reviewed & are unremarkable except as noted in HPI & below Respiratory: + cough, + dyspnea and + sputum production Cardiovascular: + edema (significant); no chest pain Gastrointestinal: no abdominal pain, no nausea, no vomiting, no constipation and no diarrhea/loose stools Physical Exam Constitutional: WD/WN, vitals as above + morbidly obese Eyes: PERRL, conjunctivae normal, anicteric sclerae ENMT: external ear and nose normal, oropharynx normal Neck: trachea midline, no thyromegaly (tracheostomy with secretions) Respiratory: normal respiratory effort; no respiratory distress A uscultation: + diminished lung sounds and + rhonchi (bilaterally); no wheezes Cardiovascular: Rate/Rhythm: regular rate and regular rhythm Heart Sounds: normal S1 and normal S2; no murmur Extremities: normal capillary refill and + edema Gastrointestinal (Abdomen): normal bowel sounds, soft, nontender, no hepatosplenomegaly Musculoskeletal: Head/Neck/Chest: normocephalic and head atraumatic Extremities: + abnormal strength (diffusely weak, cannot move in bed) Skin: no rashes, warm and dry Neurologic: patellar DTR's 2+ bilat, sensation intact and PERRL, EOMI, accommodation nl, no face palsy, no dysarthria Psychiatric: Orientation: alert and oriented x 3 Affect: + flat affect Lymphatic: no cervical or axillary lymphadenopathy Results & Data Vital Signs (Past 12 Hours) Vital Signs Temp Pulse Pulse Resp BP Pulse Ox 12/02/18 11:24 36.8 C 72 20 103/49 L 100 12/02/18 11:08 73 20 94 12/02/18 10:17 81 19 130/58 L 97 12/02/18 09:00 81 17 94 12/02/18 08:30 37.2 C 12/02/18 08:01 82 17 105/58 L 98 12/02/18 07:41 81 18 94 12/02/18 07:05 78 12/02/18 07:00 75 19 111/55 L 99 12/02/18 06:00 76 24 98/49 L 98 12/02/18 05:00 75 26 H 103/48 L 97 12/02/18 04:00 36.5 C 72 16 104/48 L 99 12/02/18 03:11 87 23 95 12/02/18 03:00 85 29 H 98/52 L 93 12/02/18 02:00 82 18 101/52 L 94 Laboratory Results Laboratory Results - last 24 hr 12/01/18 12/01/18 12/02/18 16:02 21:01 04:52 WBC 13.92 H RBC 2.96 L Hgb 7.7 L Hct 24.6 L MCV 83.1 MCH 26.0 MCHC 31.3 L RDW Std Deviation 51.4 H RDW Coeff of Lexy 16.9 H Plt Count 334 MPV 8.9 PT INR Sodium Potassium Chloride Carbon Dioxide Anion Gap BUN Creatinine Est Cr Clr Drug Dosing Est GFR ( Amer) Est GFR (Non-Af Amer) BUN/Creatinine Ratio Glucose POC Glucose 91 93 Calcium Phosphorus Magnesium Total Bilirubin AST ALT Alkaline Phosphatase Total Protein Albumin Globulin Albumin/Globulin Ratio Procalcitonin 12/02/18 12/02/18 12/02/18 04:52 04:52 04:52 WBC RBC Hgb Hct MCV MCH MCHC RDW Std Deviation RDW Coeff of Lexy Plt Count MPV PT 20.5 H INR 2.1 H Sodium 139 Potassium Chloride 98 Carbon Dioxide 33 H Anion Gap 8.0 BUN 75 H Creatinine 3.03 H D Est Cr Clr Drug Dosing 42.9 Est GFR ( Amer) 24.4 Est GFR (Non-Af Amer) 21.0 BUN/Creatinine Ratio 24.7 H Glucose 94 POC Glucose Calcium 8.4 L Phosphorus 4.3 D Magnesium Total Bilirubin 1.0 AST ALT 12 Alkaline Phosphatase 74 Total Protein 6.1 L Albumin 1.3 L Globulin 4.8 H Albumin/Globulin Ratio 0.3 L Procalcitonin 14.70 H 12/02/18 12/02/18 12/02/18 05:45 10:55 11:22 WBC 14.32 H RBC 2.91 L Hgb 7.7 L Hct 24.5 L MCV 84.2 MCH 26.5 MCHC 31.4 L RDW Std Deviation 51.9 H RDW Coeff of Lexy 16.9 H Plt Count 298 MPV 8.3 PT INR Sodium Potassium 3.7 Chloride Carbon Dioxide Anion Gap BUN Creatinine Est Cr Clr Drug Dosing Est GFR ( Amer) Est GFR (Non-Af Amer) BUN/Creatinine Ratio Glucose POC Glucose 95 Calcium Phosphorus Magnesium 2.3 Total Bilirubin AST 13 L ALT Alkaline Phosphatase Total Protein Albumin Globulin Albumin/Globulin Ratio Procalcitonin Microbiology 11/30/18 02:05 Urine,Straight Cath Urine Culture - Preliminary Klebsiella pneumoniae ESBL Gram negative bacilli 11/29/18 10:34 Blood Aerobic Blood Culture - Preliminary No growth in Aerobic bottle after 48 hours. 11/29/18 10:34 Blood Anaerobic Blood Culture - Final 11/29/18 Unknown Sputum,Trach Gram Stain - Final 11/29/18 Unknown Sputum,Trach Sputum Culture - Final Pseudomonas aeruginosa 11/29/18 09:32 Blood Aerobic Blood Culture - Preliminary No growth in Aerobic bottle after 48 hours. 11/29/18 09:32 Blood Anaerobic Blood Culture - Preliminary No growth in Anaerobic bottle after 48 hours. Medications Administered Current Inpatient Medications Acetaminophen (Tylenol) 650 mg PO Q4H PRN PRN Reason: Moderate Pain Stop: 12/29/18 11:45 Last Admin: 11/29/18 19:25 Dose: 650 mg Documented by: Albuterol (Duoneb) 3 ml NEB Q4R [facility] Stop: 12/29/18 14:59 Last Admin: 12/02/18 11:07 Dose: 3 ml Documented by: Dextrose (Dextrose 50%) 25 - 50 ml IV UD PRN; Protocol PRN Reason: Hypoglycemia Protocol Stop: 12/30/18 09:44 Glucagon (Glucagen) 1 mg IM UD PRN; Protocol PRN Reason: Hypoglycemia Protocol Stop: 12/30/18 09:44 Glucose (Glucose 40%) 15 - 30 gm PO UD PRN; Protocol PRN Reason: Hypoglycemia Protocol Stop: 12/30/18 09:44 Glucose (Dex4 Glucose) 4 - 8 tabs PO UD PRN; Protocol PRN Reason: Hypoglycemia Protocol Stop: 12/30/18 09:44 Guaifenesin (Mucinex) 1,200 mg PO Q12 [place] Stop: 12/29/18 20:59 Last Admin: 12/02/18 08:00 Dose: 1,200 mg Documented by: Ceftolozane/Tazobactam 750 mg/ (Dextrose) 105.7 mls @ 111.4 mls/hr IV Q8H [facility] Stop: 12/11/18 05:27 Last Infusion: 12/02/18 12:43 Dose: Infused Documented by: Insulin Aspart (Novolog Flexpen) 0 units SC ACHS [facility] Stop: 12/31/18 20:59 Last Admin: 12/02/18 11:23 Dose: Not Given Documented by: Levothyroxine Sodium (Synthroid) 100 mcg PO DAILYBB [facility] Stop: 12/30/18 06:29 Last Admin: 12/02/18 06:07 Dose: 100 mcg Documented by: Miscellaneous (Carbohydrates For Hypoglycemia) 15 - 30 gm PO UD PRN PRN Reason: Hypoglycemia Treatment Stop: 12/30/18 09:44 Nystatin (Mycostatin) 1 appln EXT DAILY [facility] Stop: 12/30/18 08:59 Last Admin: 12/02/18 08:01 Dose: 1 appln Documented by: Ondansetron HCl (Zofran) 4 mg IV Q4H PRN PRN Reason: Nausea And Vomiting Stop: 12/29/18 11:45 Last Admin: 11/29/18 19:25 Dose: 4 mg Documented by: Pantoprazole Sodium (Protonix) 40 mg PO DAILY [facility] Stop: 12/30/18 08:59 Last Admin: 12/02/18 08:01 Dose: 40 mg Documented by: Sertraline HCl (Zoloft) 75 mg PO DAILY [place] Stop: 12/30/18 08:59 Last Admin: 12/02/18 08:01 Dose: 75 mg Documented by: PG Care Time/CCT Total # of Minutes Spent Total Time Spent with Patient: Total time spent is greater than 50% in coordination of care (as documented) at patient's floor/unit and/or counseling patient: (1) Pneumonia Laterality: bilateral Lung location: lower lobe of lung Pneumonia type: due to unspecified organism Qualified Code(s): J18.1 - Lobar pneumonia, unspecified organism (2) Acute renal failure Acute renal failure type: unspecified Qualified Code(s): N17.9 - Acute kidney failure, unspecified
[2018-12-03] MEDS: ALBUT/IPRATROP 3MG/0.5MG NEB 3 ML VIAL NEB SCH ×6 (03:29→23:04)
[2018-12-03] MEDS: CEFTOLOZANE/TAZOBACTAM 750 MG in DEXTROSE 5% 100 ML IV SCH ×3 (04:01→20:29)
[2018-12-03] MEDS: ACETAMINOPHEN 325 MG TAB PO PRN ×2 (04:36→08:22)
[2018-12-03] MEDS: LEVOTHYROXINE SODIUM 100 MCG TABLET PO SCH (05:39)
[2018-12-03 06:05] LABS: INR 2.1 (0.9-1.1); Prothrombin Time 20.4 Seconds (9.0-12.0)
[2018-12-03 06:34] LABS: Albumin Level 1.4 gm/dl (3.4-5.0); BUN Creatinine Ratio 32.7 (10-20); Calcium 8.3 mg/dl (8.5-10.1); Creatinine Clr Calc Pharmacy 54.4 ml/min; Est GFR (African American) 32.5; Potassium 3.6 mmol/L (3.5-5.1)
[2018-12-03 06:41] LABS: Phosphorus 2.9 mg/dl (2.5-4.9)
[2018-12-03] MEDS: INSULIN ASPART 100 UNITS/ML 3 ML PEN SC SCH ×4 (08:24→21:27)
[2018-12-03] MEDS: guaiFENesin 600 MG TABCR PO SCH ×2 (08:25→20:30)
[2018-12-03] MEDS: PANTOprazole 40 MG TAB PO SCH (08:26)
[2018-12-03] MEDS: SERTRALINE HCL 50 MG TABLET PO SCH (08:27)
[2018-12-03] MEDS: NYSTATIN POWDER 15GM BTL EXT SCH (08:29)
[2018-12-03 08:40] LABS: Hematocrit (blood only) 27.2 % (42-52); Hemoglobin 8.4 g/dL (14.0-18.0); Mean Corpuscular Hemoglobin 25.7 pg (25-34); Mean Corpuscular Hgb Conc 30.9 g/dL (32-36); Mean Corpuscular Volume 83.2 fL (80-100); Mean Platelet Volume 8.4 fL (7.4-10.4); Nucleated RBC # (auto) 0.02 K/uL (0-0); Nucleated RBC % (auto) 0.2 %; Platelet Count 313 K/uL (130-400); RDW Coefficient of Variation 16.8 % (11.5-14.5); RDW Standard Deviation 51.7 fL (36.4-46.3); Red Blood Count 3.27 M/uL (4.7-6.1); White Blood Count 12.76 K/uL (4.8-10.8)
--- NOTE | 2018-12-03 14:16 | Hospitalist Progress Note ---
Date of Service December 03, 2018 Assessment & Plan (1) Septic shock: likely due to pneumonia with Pseudomonas but also Klebsiella ESBL and Proteus UTI titrated off of Vasopressin and Levophed, BP stable today adequately fluid resuscitated transferred out of ICU on 12/02 antibiotics changed to Zerbaxa on 12/01 ID following no growth in blood cultures at 4 days (2) Acute respiratory failure with hypoxia: due to pneumonia continue oxygen via trach on FiO2 40% no respiratory distress for several days, less secretions (3) Pneumonia: continue respiratory care Vanco and Zosyn initially, changed to Zerbaxa (Ceftolozane/Tazobactam) on 12/01 Dr. Morales recommends 7-10 days of IV Zerbaxa last day of Zerbaxa would be 12/10/18 nebulizers sputum culture : resistant strain of Pseudomonas WBC down to 12k (4) UTI (urinary tract infection): urine culture growing Klebsiella ESBL as well as Proteus continue on Zerbaxa ID following (5) Acute renal failure: -Creatinine baseline appears to be around 1.5, CR = 6.23, BUN = 70 on admission likely from prerenal or ATN Cr down further to 2.39 today making more urine via davey, lots of sediment nephrology following, appreciate recommendations from Dr. Ivory, she signed off (6) Anemia: Hb up to 8.4 today no signs of bleeding no reason for transfusion, would be hesitant to do so unless absolutely necessary BP is stable off pressors repeat tomorrow (7) Obesity hypoventilation syndrome: -Likely contributing to patient's poor respiratory status (8) Asthma: -History of such no wheezing continue nebulizers (9) H/O tracheostomy: -S/P pacemaker insertion in 2016 -Tracheostomy care changed tracheostomy on 12/02 (10) Atrial fibrillation and flutter: Chronic typically on Toprol 25mg daily for rate control, initially held due to shock still holding as BP low normal has pacemaker INR is 2.2 can likely resume Coumadin in 2-3 days, following H/H (11) Supratherapeutic INR: reversed with vitamin k and FFP INR 2.2 from 8 on admission (12) Status post placement of cardiac pacemaker: -Completed in 2016, follows with Dr. Baeza as an outpatient (13) Heart failure, systolic, due to idiopathic cardiomyopathy: -Chronic systolic CHF in the setting of pneumonia -NT-Pro-BNP elevated at time of admission -Patient hypotensive likely secondary to sepsis from pneumonia-patient requiring pressors to maintain BP, no diuretics at this time -Hold Lasix, Toprol succinate 25 mg daily -Allow ASA 81 mg starting tomorrow monitor volume status closely, especially with ADAM and low urine output will resume Lasix tomorrow (14) DVT of lower extremity (deep venous thrombosis): -History of such INR is 2.2 typically on Coumadin alternating 5mg and 7.5mg presented with INR > 8 (15) Hyperkalemia: -Potassium elevated at 5.8 at time of admission resolved with treatment of ADAM (16) KEARA (obstructive sleep apnea): -Chronic (17) Venous insufficiency: -Chronic -Wound consult for right calf wound -Chronic venous stasis changes over bilateral lower extremities (18) Morbid obesity with BMI of 60.0-69.9, adult: - Diet and exercise will need to be encouraged upon discharge (19) DVT prophylaxis: INR therapeutic Plan: continue Zerbaxa until 12/10/18 unsure if [facility] will be able to give the Zerbaxa, discuss with case management should likely remain in hospital another 2-3 days to ensure he is stable to return to SNF Subjective patient doing well this morning, no issues over night he agrees that clinically he is close to baseline, just not eating as much as normal appetite still diminished a little nauseated, no vomiting his breathing is stable, less secretions in tracheostomy reviewed labs, WBC down to 12k, Hb up slightly at 8.4 Cr down to 2.3, K is 3.6 reviewed final urine culture, growing Proteus in addition to the ESBL Klebsiella Review of Systems Review of Systems: All systems reviewed & are unremarkable except as noted in HPI & below Constitutional: + weakness; no fever and no fatigue Respiratory: + cough and + sputum production; no dyspnea Cardiovascular: + edema; no chest pain and no palpitations Gastrointestinal: + early satiety and + nausea; no abdominal pain, no vomiting, no constipation and no diarrhea/loose stools Physical Exam Constitutional: WD/WN, vitals as above + morbidly obese Eyes: PERRL, conjunctivae normal, anicteric sclerae ENMT: external ear and nose normal, oropharynx normal Neck: trachea midline, no thyromegaly (tracheostomy with secretions) Respiratory: normal respiratory effort; no respiratory distress Auscultation: + diminished lung sounds and + rhonchi (bilaterally); no wheezes Cardiovascular: Rate/Rhythm: regular rate and regular rhythm Heart Sounds: normal S1 and normal S2; no murmur Extremities: normal capillary refill and + edema Gastrointestinal (Abdomen): normal bowel sounds, soft, nontender, no hepatosplenomegaly Musculoskeletal: Head/Neck/Chest: normocephalic and head atraumatic Extremities: + abnormal strength (diffusely weak, cannot move in bed) Skin: no rashes, warm and dry Neurologic: patellar DTR's 2+ bilat, sensation intact and PERRL, EOMI, accommodation nl, no face palsy, no dysarthria Psychiatric: Orientation: alert and oriented x 3 Affect: + flat affect Lymphatic: no cervical or axillary lymphadenopathy Results & Data Vital Signs (Past 12 Hours) Vital Signs Temp Pulse Pulse Resp BP BP Pulse Ox 12/03/18 11:27 36.8 C 53 L 22 121/49 L 94 12/03/18 10:55 51 L 18 96 12/03/18 08:05 36.8 C 48 L 22 101/41 L 94 12/03/18 07:18 53 L 18 94 12/03/18 03:46 36.5 C 48 L 24 126/43 L 93 12/03/18 03:29 51 L 20 94 Laboratory Results Laboratory Results - last 24 hr 12/02/18 12/02/18 12/03/18 16:07 20:22 05:28 WBC RBC Hgb Hct MCV MCH MCHC RDW Std Deviation RDW Coeff of Lexy Plt Count MPV Absolute Nucleated RBC Nucleated RBC % (auto) PT 20.4 H INR 2.1 H Sodium Potassium Chloride Carbon Dioxide Anion Gap BUN Creatinine Est Cr Clr Drug Dosing Est GFR ( Amer) Est GFR (Non-Af Amer) BUN/Creatinine Ratio Glucose POC Glucose 86 98 Calcium Phosphorus Albumin 12/03/18 12/03/18 12/03/18 05:28 07:02 08:15 WBC 12.76 H RBC 3.27 L Hgb 8.4 L Hct 27.2 L MCV 83.2 MCH 25.7 MCHC 30.9 L RDW Std Deviation 51.7 H RDW Coeff of Lexy 16.8 H Plt Count 313 MPV 8.4 Absolute Nucleated RBC 0.02 H Nucleated RBC % (auto) 0.2 PT INR Sodium 138 Potassium 3.6 Chloride 97 L Carbon Dioxide 33 H Anion Gap 8.0 BUN 78 H Creatinine 2.39 H D Est Cr Clr Drug Dosing 54.4 Est GFR ( Amer) 32.5 Est GFR (Non-Af Amer) 28.0 BUN/Creatinine Ratio 32.7 H Glucose 108 H POC Glucose 92 Calcium 8.3 L Phosphorus 2.9 D Albumin 1.4 L 12/03/18 11:26 WBC RBC Hgb Hct MCV MCH MCHC RDW Std Deviation RDW Coeff of Lexy Plt Count MPV Absolute Nucleated RBC Nucleated RBC % (auto) PT INR Sodium Potassium Chloride Carbon Dioxide Anion Gap BUN Creatinine Est Cr Clr Drug Dosing Est GFR ( Amer) Est GFR (Non-Af Amer) BUN/Creatinine Ratio Glucose POC Glucose 86 Calcium Phosphorus Albumin Medications Administered Current Inpatient Medications Acetaminophen (Tylenol) 650 mg PO Q4H PRN PRN Reason: Moderate Pain Stop: 12/29/18 11:45 Last Admin: 12/03/18 08:22 Dose: 650 mg Documented by: Albuterol (Duoneb) 3 ml NEB Q4R [place] Stop: 12/29/18 14:59 Last Admin: 12/03/18 10:55 Dose: 3 ml Documented by: Dextrose (Dextrose 50%) 25 - 50 ml IV UD PRN; Protocol PRN Reason: Hypoglycemia Protocol Stop: 12/30/18 09:44 Glucagon (Glucagen) 1 mg IM UD PRN; Protocol PRN Reason: Hypoglycemia Protocol Stop: 12/30/18 09:44 Glucose (Glucose 40%) 15 - 30 gm PO UD PRN; Protocol PRN Reason: Hypoglycemia Protocol Stop: 12/30/18 09:44 Glucose (Dex4 Glucose) 4 - 8 tabs PO UD PRN; Protocol PRN Reason: Hypoglycemia Protocol Stop: 12/30/18 09:44 Guaifenesin (Mucinex) 1,200 mg PO Q12 [place] Stop: 12/29/18 20:59 Last Admin: 12/03/18 08:25 Dose: 1,200 mg Documented by: Ceftolozane/Tazobactam 750 mg/ (Dextrose) 105.7 mls @ 111.4 mls/hr IV Q8H [place] Stop: 12/11/18 05:27 Last Admin: 12/03/18 13:56 Dose: 111.4 mls/hr Documented by: Insulin Aspart (Novolog Flexpen) 0 units SC ACHS [place] Stop: 12/31/18 20:59 Last Admin: 12/03/18 13:57 Dose: Not Given Documented by: Levothyroxine Sodium (Synthroid) 100 mcg PO DAILYBB [facility] Stop: 12/30/18 06:29 Last Admin: 12/03/18 05:39 Dose: 100 mcg Documented by: Miscellaneous (Carbohydrates For Hypoglycemia) 15 - 30 gm PO UD PRN PRN Reason: Hypoglycemia Treatment Stop: 12/30/18 09:44 Nystatin (Mycostatin) 1 appln EXT DAILY [place] Stop: 12/30/18 08:59 Last Admin: 12/03/18 08:29 Dose: 1 appln Documented by: Ondansetron HCl (Zofran) 4 mg IV Q4H PRN PRN Reason: Nausea And Vomiting Stop: 12/29/18 11:45 Last Admin: 11/29/18 19:25 Dose: 4 mg Documented by: Pantoprazole Sodium (Protonix) 40 mg PO DAILY [place] Stop: 12/30/18 08:59 Last Admin: 12/03/18 08:26 Dose: 40 mg Documented by: Sertraline HCl (Zoloft) 75 mg PO DAILY [place] Stop: 12/30/18 08:59 Last Admin: 12/03/18 08:27 Dose: 75 mg Documented by: PG Care Time/CCT Total # of Minutes Spent Total Time Spent with Patient: Total time spent is greater than 50% in coordination of care (as documented) at patient's floor/unit and/or counseling patient: (1) Pneumonia Laterality: bilateral Lung location: lower lobe of lung Pneumonia type: due to unspecified organism Qualified Code(s): J18.1 - Lobar pneumonia, unspecified organism (2) Acute renal failure Acute renal failure type: unspecified Qualified Code(s): N17.9 - Acute kidney failure, unspecified
[2018-12-04] MEDS: ALBUT/IPRATROP 3MG/0.5MG NEB 3 ML VIAL NEB SCH ×6 (03:35→22:59)
[2018-12-04] MEDS: CEFTOLOZANE/TAZOBACTAM 750 MG in DEXTROSE 5% 100 ML IV SCH (03:37)
[2018-12-04] MEDS: LEVOTHYROXINE SODIUM 100 MCG TABLET PO SCH (05:06)
[2018-12-04] MEDS: ACETAMINOPHEN 325 MG TAB PO PRN (05:06)
[2018-12-04 06:38] LABS: Hematocrit (blood only) 28.3 % (42-52); Hemoglobin 8.8 g/dL (14.0-18.0); Mean Corpuscular Hgb Conc 31.1 g/dL (32-36); Mean Corpuscular Volume 83.7 fL (80-100); Mean Platelet Volume 8.4 fL (7.4-10.4); Nucleated RBC # (auto) 0.05 K/uL (0-0); Nucleated RBC % (auto) 0.3 %; Platelet Count 350 K/uL (130-400); RDW Coefficient of Variation 17.1 % (11.5-14.5); RDW Standard Deviation 52.2 fL (36.4-46.3); Red Blood Count 3.38 M/uL (4.7-6.1); White Blood Count 14.79 K/uL (4.8-10.8)
[2018-12-04 06:47] LABS: INR 2.2 (0.9-1.1); Prothrombin Time 20.9 Seconds (9.0-12.0)
[2018-12-04 07:12] LABS: BUN Creatinine Ratio 40.4 (10-20); Calcium 8.5 mg/dl (8.5-10.1); Creatinine Clr Calc Pharmacy 65.9 ml/min; Est GFR (African American) 43.7; Est GFR (Non-African American) 37.7; Potassium 3.4 mmol/L (3.5-5.1)
[2018-12-04] MEDS: SERTRALINE HCL 50 MG TABLET PO SCH (08:57)
[2018-12-04] MEDS: FUROSEMIDE 40 MG TAB PO SCH ×2 (08:58→17:23)
[2018-12-04] MEDS: guaiFENesin 600 MG TABCR PO SCH ×2 (08:58→21:22)
[2018-12-04] MEDS: NYSTATIN POWDER 15GM BTL EXT SCH (08:58)
[2018-12-04] MEDS: PANTOprazole 40 MG TAB PO SCH (08:58)
[2018-12-04] MEDS: POTASSIUM CHLORIDE 20 MEQ TABCR PO SCH ×3 (08:59→21:21)
[2018-12-04] MEDS: INSULIN ASPART 100 UNITS/ML 3 ML PEN SC SCH ×4 (09:02→22:12)
--- NOTE | 2018-12-04 09:42 | Infectious Disease Progress Nt ---
Date of Service December 04, 2018 Assessment & Plan (1) UTI (urinary tract infection): continue Zerbaxa, would give 7 days total will treat uti and pna. (2) PNA (pneumonia): Subjective transferred out of ICU. Remains on renal dosed Zerbaxa, tolerating well. no f/c. wbc 14, creat continues to improve, 1.8 today. blood cultures remain negative, urine culture growing ESBL+ E. coli and proteus. sputum culture growing highly resistant pseudomonas. Results & Data Vital Signs (Past 12 Hours) Vital Signs Temp Pulse Resp BP Pulse Ox 12/04/18 07:29 36.4 C L 70 28 H 119/55 L 99 12/04/18 06:57 68 18 98 12/04/18 04:00 36.7 C 61 16 148/55 H 95 12/03/18 23:05 54 L 18 92 Laboratory Results Microbiology 11/30/18 02:05 Urine,Straight Cath Urine Culture - Final Klebsiella pneumoniae ESBL Proteus mirabilis 11/29/18 10:34 Blood Aerobic Blood Culture - Preliminary No growth in Aerobic bottle after 48 hours. 11/29/18 10:34 Blood Anaerobic Blood Culture - Final 11/29/18 Unknown Sputum,Trach Gram Stain - Final 11/29/18 Unknown Sputum,Trach Sputum Culture - Final Pseudomonas aeruginosa 11/29/18 09:32 Blood Aerobic Blood Culture - Preliminary No growth in Aerobic bottle after 48 hours. 11/29/18 09:32 Blood Anaerobic Blood Culture - Preliminary No growth in Anaerobic bottle after 48 hours. PG Care Time/CCT Total # of Minutes Spent Total Time Spent with Patient: Total time spent is greater than 50% in coordination of care (as documented) at patient's floor/unit and/or counseling patient:
[2018-12-04] MEDS: CEFTOLOZANE/TAZOBACTAM 1,500 MG in DEXTROSE 5% 100 ML IV SCH ×2 (13:19→21:20)
[2018-12-04] MEDS: LACTOBACILLUS ACIDOPHILUS (FLORANEX) TAB PO SCH (17:24)
--- NOTE | 2018-12-04 19:23 | Hospitalist Progress Note ---
Date of Service December 04, 2018 Assessment & Plan (1) Septic shock: Shock resolved. 2nd to MDR Pseudomonas pneumonia and UTI (due to ESBL Klebsiella and Proteus). Required ICU stay and pressors. Transferred from ICU on 12/02. ID following. Zerbaxa recommended; initiated 12/01/18. 7-10 day course of such planned. Blood cultures negative. (2) Acute respiratory failure with hypoxia: resolved. 2nd to pseudomonas pneumonia in setting of chronic trach. (3) Pneumonia: Improved. Cont Zerbaxa (Ceftolozane/Tazobactam). Started on 12/01. 7-10 days of IV Zerbaxa planned. Continue supportive care, nebs, etc. (4) UTI (urinary tract infection): 2nd Klebsiella ESBL as well as Proteus. Cont zerbaxa. Needs 7 days of Rx. ID input appreciated. (5) Acute renal failure: Peak Creatinine was 6.2. Likely sepsis-associated ATN. Improving nicely with supportive care. Creatinine today again improved. Repeat bmp am. (6) Anemia: chronic, stable. cbc in am. 10.3 at admission; 8.8 today. (7) Obesity hypoventilation syndrome: (8) Asthma: without exacerbation at this time. (9) H/O tracheostomy: S/P trach placement 2016 following intubation/mech ventilation for respiratory failure. records also suggest noncompliance with CPAP for KEARA and thus trach also placed for that reason. trach changed on 12/02. no issues at this time. (10) Atrial fibrillation and flutter: stable on telemetry. beta henrry on hold due to recent shock. INR today 2.2 - resume coumadin at 5mg daily with daily INR checks. (11) Supratherapeutic INR: reversed with vitamin k and FFP at admission. INR 2.2 today. resume coumadin albeit at lower dose of 5mg daily. (12) Status post placement of cardiac pacemaker: Placed 2015. No issues at this time. due for pacer interrogation - will order today. (13) Heart failure, systolic, due to idiopathic cardiomyopathy: chronic systolic CHF. previous EF 40's. appears compensated today. resume BB when blood pressure will allow. lasix 40mg BID resumed today since ARF resolving. (14) DVT of lower extremity (deep venous thrombosis): on coumadin resume coumadin today INR stable last few days INR in am (15) Hyperkalemia: resolved now with mild hypokalemia - resume potassium supplementation with daily BMP (16) KEARA (obstructive sleep apnea): s/p trach placement 2016 previous noncompliance with CPAP for KEARA (17) Venous insufficiency: Wound consult appreciated for right calf wound Cont lasix (18) Morbid obesity with BMI of 60.0-69.9, adult: BMI now 55 (19) Hypothyroidism: TSH compensated cont synthroid as is (20) Depression: increase zoloft to 100mg daily (21) DVT prophylaxis: coumadin resides at [facility] will need to d/w social work about ability to get zerbaxa there Subjective patient sleeping upon my arrival. blow-by O2 via trach collar. he awoke easily. he asked how much longer he would be in the hospital. staff report he often refuses certain parts of his care. staff feel he is very depressed. nonambulatory at baseline. Review of Systems Constitutional: + anorexia; no fever and no chills Respiratory: + cough; no dyspnea Cardiovascular: no chest pain Gastrointestinal: no abdominal pain Physical Exam Constitutional: + morbidly obese; no acute distress and no altered mental status ENMT: external ear and nose normal, oropharynx normal Neck: trach in place - clean Respiratory: normal respiratory effort Auscultation: lungs clear to auscultation bilaterally and + diminished lung sounds (bases) Cardiovascular: Rate/Rhythm: regular rate and regular rhythm Heart Sounds: normal S1 and normal S2; no murmur Vessels: posterior tibial pulses present and dorsalis pedis pulses present; no JVD Extremities: + edema (lymphedema b/l ) stasis changes b/l legs Gastrointestinal (Abdomen): normal bowel sounds, soft, nontender, no hepatosplenomegaly Skin: stasis changes b/l legs Psychiatric: Orientation: alert and oriented x 3 Affect: + flat affect Results & Data Vital Signs (Past 12 Hours) Vital Signs Temp Pulse Resp BP BP Pulse Ox Pulse Ox 12/04/18 15:20 71 18 97 12/04/18 15:18 36.7 C 74 23 90/50 L 99 12/04/18 11:22 71 18 97 12/04/18 11:15 78 23 127/54 L 98 12/04/18 08:00 97 12/04/18 07:29 36.4 C L 70 28 H 119/55 L 99 Laboratory Results Laboratory Results - last 24 hr 12/03/18 12/04/18 12/04/18 20:22 05:59 05:59 WBC 14.79 H RBC 3.38 L Hgb 8.8 L Hct 28.3 L MCV 83.7 MCH 26.0 MCHC 31.1 L RDW Std Deviation 52.2 H RDW Coeff of Lexy 17.1 H Plt Count 350 MPV 8.4 Absolute Nucleated RBC 0.05 H Nucleated RBC % (auto) 0.3 PT INR Sodium 141 Potassium 3.4 L Chloride 98 Carbon Dioxide 35 H Anion Gap 8.0 BUN 75 H Creatinine 1.87 H D Est Cr Clr Drug Dosing 65.9 Est GFR ( Amer) 43.7 Est GFR (Non-Af Amer) 37.7 BUN/Creatinine Ratio 40.4 H Glucose 91 POC Glucose 92 Calcium 8.5 12/04/18 12/04/18 12/04/18 05:59 07:14 11:12 WBC RBC Hgb Hct MCV MCH MCHC RDW Std Deviation RDW Coeff of Lexy Plt Count MPV Absolute Nucleated RBC Nucleated RBC % (auto) PT 20.9 H INR 2.2 H Sodium Potassium Chloride Carbon Dioxide Anion Gap BUN Creatinine Est Cr Clr Drug Dosing Est GFR ( Amer) Est GFR (Non-Af Amer) BUN/Creatinine Ratio Glucose POC Glucose 103 H 391 H* Calcium 12/04/18 12/04/18 12/04/18 11:13 16:09 16:11 WBC RBC Hgb Hct MCV MCH MCHC RDW Std Deviation RDW Coeff of Lexy Plt Count MPV Absolute Nucleated RBC Nucleated RBC % (auto) PT INR Sodium Potassium Chloride Carbon Dioxide Anion Gap BUN Creatinine Est Cr Clr Drug Dosing Est GFR ( Amer) Est GFR (Non-Af Amer) BUN/Creatinine Ratio Glucose POC Glucose 138 H 63 L* 81 Calcium PG Care Time/CCT Total # of Minutes Spent Total Time Spent with Patient: Total time spent is greater than 50% in coordination of care (as documented) at patient's floor/unit and/or counseling patient: (1) Pneumonia Laterality: bilateral Lung location: lower lobe of lung Pneumonia type: due to unspecified organism Qualified Code(s): J18.1 - Lobar pneumonia, unspecified organism (2) UTI (urinary tract infection) Urinary tract infection type: catheter-associated UTI Indwelling urinary catheter type: indwelling urethral catheter Encounter type: subsequent encounter Qualified Code(s): T83.511D - Infection and inflammatory reaction due to indwelling urethral catheter, subsequent encounter; N39.0 - Urinary tract infection, site not specified (3) Acute renal failure Acute renal failure type: unspecified Qualified Code(s): N17.9 - Acute kidney failure, unspecified (4) Anemia Anemia type: other cause Other causes of anemia: other cause, not classified Qualified Code(s): D64.89 - Other specified anemias (5) Asthma Asthma severity: unspecified severity Asthma persistence: unspecified Asthma complication type: unspecified Qualified Code(s): J45.909 - Unspecified asthma, uncomplicated (6) DVT of lower extremity (deep venous thrombosis) Affected thrombotic vein of extremity: unspecified vein of extremity Chronicity: unspecified Laterality: unspecified laterality Qualified Code(s): I82.409 - Acute embolism and thrombosis of unspecified deep veins of unspecified lower extremity (7) Hypothyroidism Hypothyroidism type: acquired Qualified Code(s): E03.9 - Hypothyroidism, unspecified (8) Depression Depression Type: other depression Qualified Code(s): F32.89 - Other specified depressive episodes
[2018-12-04] MEDS ORDERED: WARFARIN SOD 5 MG TAB PO SCH (19:25)
[2018-12-05] MEDS: ALBUT/IPRATROP 3MG/0.5MG NEB 3 ML VIAL NEB SCH ×6 (02:57→22:25)
[2018-12-05] MEDS: CEFTOLOZANE/TAZOBACTAM 1,500 MG in DEXTROSE 5% 100 ML IV SCH ×3 (04:00→20:27)
[2018-12-05 06:06] LABS: Hematocrit (blood only) 27.9 % (42-52); Hemoglobin 8.7 g/dL (14.0-18.0); Mean Corpuscular Hgb Conc 31.2 g/dL (32-36); Mean Corpuscular Volume 83.3 fL (80-100); Mean Platelet Volume 8.4 fL (7.4-10.4); Nucleated RBC # (auto) 0.07 K/uL (0-0); Nucleated RBC % (auto) 0.4 %; Platelet Count 364 K/uL (130-400); RDW Coefficient of Variation 17.2 % (11.5-14.5); RDW Standard Deviation 52.5 fL (36.4-46.3); Red Blood Count 3.35 M/uL (4.7-6.1); White Blood Count 17.79 K/uL (4.8-10.8)
[2018-12-05] MEDS: LEVOTHYROXINE SODIUM 100 MCG TABLET PO SCH (06:16)
[2018-12-05 06:19] LABS: INR 2.9 (0.9-1.1); Prothrombin Time 27.9 Seconds (9.0-12.0)
[2018-12-05 06:49] LABS: BUN Creatinine Ratio 50.8 (10-20); Calcium 8.6 mg/dl (8.5-10.1); Creatinine Clr Calc Pharmacy 88.7 ml/min; Est GFR (African American) 62.5; Est GFR (Non-African American) 53.9; Potassium 4.1 mmol/L (3.5-5.1)
[2018-12-05] MEDS: INSULIN ASPART 100 UNITS/ML 3 ML PEN SC SCH ×4 (09:10→20:29)
[2018-12-05] MEDS: LACTOBACILLUS ACIDOPHILUS (FLORANEX) TAB PO SCH ×3 (09:24→17:20)
[2018-12-05] MEDS: guaiFENesin 600 MG TABCR PO SCH ×2 (09:25→20:28)
[2018-12-05] MEDS: FUROSEMIDE 40 MG TAB PO SCH (09:25)
[2018-12-05] MEDS: SERTRALINE HCL 100 MG TABLET PO SCH (09:25)
[2018-12-05] MEDS: PANTOprazole 40 MG TAB PO SCH (09:25)
[2018-12-05] MEDS: NYSTATIN POWDER 15GM BTL EXT SCH (09:26)
[2018-12-05] MEDS: POTASSIUM CHLORIDE 20 MEQ TABCR PO SCH (09:54)
[2018-12-05] MEDS ORDERED: HYDROCODONE/ACETAMINOPHEN 10/325 TAB PO ONE ×2 (11:10→11:15)
[2018-12-05] MEDS: ONDANSETRON INJ 2 MG/ML 2 ML VIAL IV PRN (12:25)
--- NOTE | 2018-12-05 13:51 | CT Scan Report ---
CT OF THE ABDOMEN AND PELVIS WITHOUT CONTRAST CLINICAL HISTORY: UTI, rising WBC count; eval stone, pyelo, etc COMPARISON STUDY: CT of the abdomen and pelvis February 17, 2016. Renal ultrasound November 29, 2018. TECHNIQUE: Axial images of the abdomen and pelvis were obtained without IV contrast. Images were revi ewed in the axial, sagittal, and coronal planes. Automated exposure control was utilized for the katherine dy. A dose lowering technique was utilized adhering to the principles of ALARA. FINDINGS: Imaged portions of the lower chest demonstrate small bilateral pleural effusions. Right bas ilar opacity represents atelectasis. Left basilar opacity may reflect atelectasis or pneumonia. Pacer leads are partially imaged. There is moderate cardiomegaly. No pneumatosis, free air or portal venous gas is present. Evaluation of the abdomen and pelvis is sub optimal on this unenhanced examination, particularly given streak artifact from body wall contacting the gantry. Unenhanced images of the liver, spleen, adrenal glands and pancreas are unremarkable. The re is no biliary or pancreatic ductal dilatation. Multiple bilateral renal calculi measure up to 6 mm . There are no ureteral calculi. There is no hydronephrosis or hydroureter. A 6.3 cm left renal lesio n was shown to represent a cyst on ultrasound of November 29, 2018. A 3.3 cm hypodense lesion within th e upper pole of the right kidney is unchanged since CT of February 17, 2016. This remains indeterminat e. The appendix is likely partially visualized. Visualized portions are normal. Fitch balloon is pres ent within the bladder which is largely collapsed. There is anterior pelvic and lower abdominal infil tration and fluid which is extraperitoneal. Multiple fluid pockets are noted, including a right lower quadrant collection that measures 5.5 x 2.8 cm. An anterior pelvic collection measures 3.6 x 2.6 cm. Fluid lateral to the descending colon is noted. Infiltration and fluid within the rectus sheath is n oted. No suspicious osseous lesions are noted. No bowel wall thickening is identified although sensit ivity is diminished on this exam. Ventral/umbilical hernia repair with mesh is noted. IMPRESSION: 1. Multiple lower abdominal and pelvic extraperitoneal fluid collections and infiltration with involv ement of the rectus sheath. Differential considerations include an infectious process, of indetermina te etiology, with multiple abscesses. The bladder may be the source. Bladder injury/perforation priscilla ot be excluded but no extraluminal gas. A traumatic etiology with subacute hematomas could appear sim ilar. 2. Evaluation compromised the lack of IV contrast and artifact from body wall contacting the gantry. 3. 3.3 cm hyperdense right renal lesion. Although unchanged since CT of February 17, 2016, this lesion remains indeterminate and a neoplasm is the diagnosis of exclusion. Nonemergent renal protocol CT is recommended. 4. Small bilateral pleural effusions with left basilar opacity which may reflect pneumonia or atelect asis. 5. Bilateral nephrolithiasis. No ureteral calculi or hydronephrosis. Electronically signed by: Daquan Chapman M.D. 12/05/2018 1:50 PM
--- NOTE | 2018-12-05 21:29 | Hospitalist Progress Note ---
Date of Service December 05, 2018 Assessment & Plan (1) Abnormal CT of the abdomen: CT obtained this AM due to rising wbc count in face of broad-spectrum IV abx therapy. CT reviewed with radiologist - findings in abdominal wall could be chronic. The lack of abdominal pain, etc would suggest chronicity. The small fluid collections could be old blood - perhaps from supratherapeutic INR?? Small abscesses? Other? There is some question whether these collections could be related to the bladder - will probably ask urology for their opinion. Will also speak with ID. (2) Renal mass, right: 3.3cm. chronic. very well could be RCC. very poor candidate for any definitive Rx in light of morbid obesity and numerous comorbidities. (3) Septic shock: Shock resolved. 2nd to MDR Pseudomonas pneumonia and UTI (due to ESBL Klebsiella and Proteus). Required ICU stay and pressors. Transferred from ICU on 12/02. ID following. Zerbaxa recommended; initiated 12/01/18. 7-10 day course of such planned. Blood cultures negative. (4) Acute respiratory failure with hypoxia: resolved. 2nd to pseudomonas pneumonia in setting of chronic trach. (5) Pneumonia: Improved and stable on trach collar. LLL on imaging. Cont Zerbaxa (Ceftolozane/Tazobactam). Started on 12/01. 7-10 days of IV Zerbaxa planned. Continue supportive care, nebs, etc. (6) UTI (urinary tract infection): 2nd Klebsiella ESBL as well as Proteus. Cont zerbaxa. Needs 7 days of Rx. ID input appreciated. (7) Acute renal failure: Peak Creatinine was 6.2. Likely sepsis-associated ATN. Improving nicely with supportive care. Creatinine today again improved. Repeat bmp am. Hold lasix. Still looks volume contracted with low BP, dry MM, etc. (8) Anemia: chronic, stable. (9) Obesity hypoventilation syndrome: (10) Asthma: without exacerbation at this time. (11) H/O tracheostomy: S/P trach placement 2016 following intubation/mech ventilation for respiratory failure. records also suggest noncompliance with CPAP for KEARA and thus trach also placed for that reason. trach changed on 12/02. no issues at this time. (12) Atrial fibrillation and flutter: stable on telemetry. beta henrry on hold due to recent shock. INR today rising once again - due to antibiotics? HOLD coumadin; daily INR checks. (13) Supratherapeutic INR: reversed with vitamin k and FFP at admission. etiology of this?? INR rising again. must have some element of liver dysfunction. and IV antibiotics could be potentiation. hold coumadin. INR am. (14) Status post placement of cardiac pacemaker: Placed 2015. No issues at this time. due for pacer interrogation - ordered. (15) Heart failure, systolic, due to idiopathic cardiomyopathy: chronic systolic CHF. previous EF 40's. appears compensated today or even mildly volume contracted. resume BB when blood pressure will allow. lasix 40mg BID - hold. (16) DVT of lower extremity (deep venous thrombosis): on coumadin but holding due to rapid rise overnight in INR (17) Hyperkalemia: resolved (18) KEARA (obstructive sleep apnea): s/p trach placement 2015 previous noncompliance with CPAP for KEARA (19) Venous insufficiency: Wound consult appreciated for right calf wound (20) Morbid obesity with BMI of 60.0-69.9, adult: BMI now 55 (21) Hypothyroidism: TSH compensated cont synthroid as is (22) Depression: increased zoloft to 100mg daily yesterday (23) DVT prophylaxis: coumadin resides at [facility] will need to d/w social work about ability to get zerbaxa there hold on d/c due to abnormal CT Subjective patient denies any abdominal pain save for scant pain RLQ no nausea no vomiting appetite poor tele stable overnight no new issues initially had refused to have the CT of abdomen Review of Systems Constitutional: no fever and no chills Respiratory: no cough and no dyspnea Cardiovascular: no chest pain Gastrointestinal: no abdominal pain, no bloating, no nausea, no vomiting and no diarrhea/loose stools Physical Exam Constitutional: + morbidly obese; no acute distress and no altered mental status ENMT: external ear and nose normal, oropharynx normal Neck: trach in place - clean Respiratory: normal respiratory effort Auscultation: lungs clear to auscultation bilaterally and + diminished lung sounds (bases) Cardiovascular: Rate/Rhythm: regular rate and regular rhythm Heart Sounds: normal S1 and normal S2; no murmur Vessels: posterior tibial pulses present and dorsalis pedis pulses present; no JVD Extremities: + edema (lymphedema b/l ) Gastrointestinal (Abdomen): normal bowel sounds, soft, nontender, no hepatosplenomegaly Psychiatric: Orientation: alert and oriented x 3 Affect: + flat affect Results & Data Vital Signs (Past 12 Hours) Vital Signs Temp Pulse Pulse Pulse Resp BP BP 12/05/18 20:01 37 C 84 20 97/53 L 12/05/18 19:18 85 16 12/05/18 16:00 69 12/05/18 15:38 36.8 C 97 H 20 90/55 L 12/05/18 15:13 91 H 16 12/05/18 11:09 36.8 C 84 27 H 116/46 L Pulse Ox 12/05/18 20:01 91 12/05/18 19:18 92 12/05/18 16:00 12/05/18 15:38 95 12/05/18 15:13 90 12/05/18 11:09 90 Laboratory Results Laboratory Results - last 24 hr 12/05/18 12/05/18 12/05/18 05:24 05:24 05:24 WBC 17.79 H RBC 3.35 L Hgb 8.7 L Hct 27.9 L MCV 83.3 MCH 26.0 MCHC 31.2 L RDW Std Deviation 52.5 H RDW Coeff of Lexy 17.2 H Plt Count 364 MPV 8.4 Absolute Nucleated RBC 0.07 H Nucleated RBC % (auto) 0.4 PT 27.9 H INR 2.9 H Sodium 140 Potassium 4.1 D Chloride 101 Carbon Dioxide 31 Anion Gap 8.0 BUN 71 H Creatinine 1.39 D Est Cr Clr Drug Dosing 88.7 Est GFR ( Amer) 62.5 Est GFR (Non-Af Amer) 53.9 BUN/Creatinine Ratio 50.8 H Glucose 93 POC Glucose Calcium 8.6 12/05/18 12/05/18 12/05/18 07:32 11:07 16:07 WBC RBC Hgb Hct MCV MCH MCHC RDW Std Deviation RDW Coeff of Lexy Plt Count MPV Absolute Nucleated RBC Nucleated RBC % (auto) PT INR Sodium Potassium Chloride Carbon Dioxide Anion Gap BUN Creatinine Est Cr Clr Drug Dosing Est GFR ( Amer) Est GFR (Non-Af Amer) BUN/Creatinine Ratio Glucose POC Glucose 104 H 88 97 Calcium 12/05/18 20:22 WBC RBC Hgb Hct MCV MCH MCHC RDW Std Deviation RDW Coeff of Lexy Plt Count MPV Absolute Nucleated RBC Nucleated RBC % (auto) PT INR Sodium Potassium Chloride Carbon Dioxide Anion Gap BUN Creatinine Est Cr Clr Drug Dosing Est GFR ( Amer) Est GFR (Non-Af Amer) BUN/Creatinine Ratio Glucose POC Glucose 89 Calcium PG Care Time/CCT Total # of Minutes Spent Total Time Spent with Patient: Total time spent is greater than 50% in coordination of care (as documented) at patient's floor/unit and/or counseling patient: (1) UTI (urinary tract infection) Encounter type: subsequent encounter Indwelling urinary catheter type: indwelling urethral catheter Urinary tract infection type: catheter-associated UTI Qualified Code(s): T83.511D - Infection and inflammatory reaction due to indwelling urethral catheter, subsequent encounter; N39.0 - Urinary tract infection, site not specified (2) Acute renal failure Acute renal failure type: unspecified Qualified Code(s): N17.9 - Acute kidney failure, unspecified (3) Anemia Anemia type: other cause Other causes of anemia: other cause, not classified Qualified Code(s): D64.89 - Other specified anemias (4) Depression Depression Type: other depression Qualified Code(s): F32.89 - Other specified depressive episodes (5) Hypothyroidism Hypothyroidism type: acquired Qualified Code(s): E03.9 - Hypothyroidism, unspecified (6) DVT of lower extremity (deep venous thrombosis) Affected thrombotic vein of extremity: unspecified vein of extremity Chronicity: unspecified Laterality: unspecified laterality Qualified Code(s): I82.409 - Acute embolism and thrombosis of unspecified deep veins of unspecified lower extremity (7) Pneumonia Laterality: bilateral Lung location: lower lobe of lung Pneumonia type: due to unspecified organism Qualified Code(s): J18.1 - Lobar pneumonia, unspecified organism (8) Asthma Asthma complication type: unspecified Asthma persistence: unspecified Asthma severity: unspecified severity Qualified Code(s): J45.909 - Unspecified asthma, uncomplicated
[2018-12-06] MEDS: ALBUT/IPRATROP 3MG/0.5MG NEB 3 ML VIAL NEB SCH ×6 (03:14→23:01)
[2018-12-06] MEDS: CEFTOLOZANE/TAZOBACTAM 1,500 MG in DEXTROSE 5% 100 ML IV SCH ×3 (04:02→19:43)
[2018-12-06] MEDS: LEVOTHYROXINE SODIUM 100 MCG TABLET PO SCH (05:24)
[2018-12-06 05:52] LABS: Hematocrit (blood only) 28.7 % (42-52); Mean Corpuscular Hemoglobin 26.3 pg (25-34); Mean Corpuscular Hgb Conc 31.4 g/dL (32-36); Mean Corpuscular Volume 83.9 fL (80-100); Mean Platelet Volume 7.7 fL (7.4-10.4); Nucleated RBC # (auto) 0.07 K/uL (0-0); Nucleated RBC % (auto) 0.4 %; Platelet Count 374 K/uL (130-400); RDW Coefficient of Variation 17.3 % (11.5-14.5); RDW Standard Deviation 52.2 fL (36.4-46.3); Red Blood Count 3.42 M/uL (4.7-6.1); White Blood Count 17.62 K/uL (4.8-10.8)
[2018-12-06 06:14] LABS: INR 4.5 (0.9-1.1)
[2018-12-06 06:31] LABS: BUN Creatinine Ratio 50.5 (10-20); Calcium 8.6 mg/dl (8.5-10.1); Creatinine Clr Calc Pharmacy 94.6 ml/min; Est GFR (African American) 69.1; Est GFR (Non-African American) 59.6; Potassium 4.1 mmol/L (3.5-5.1)
[2018-12-06] MEDS: INSULIN ASPART 100 UNITS/ML 3 ML PEN SC SCH ×4 (08:04→21:08)
[2018-12-06] MEDS: PANTOprazole 40 MG TAB PO SCH (08:19)
[2018-12-06] MEDS: LACTOBACILLUS ACIDOPHILUS (FLORANEX) TAB PO SCH ×3 (08:19→17:01)
[2018-12-06] MEDS: SERTRALINE HCL 100 MG TABLET PO SCH (08:19)
[2018-12-06] MEDS: NYSTATIN POWDER 15GM BTL EXT SCH (08:20)
[2018-12-06] MEDS: guaiFENesin 600 MG TABCR PO SCH ×2 (08:21→19:46)
--- NOTE | 2018-12-06 10:50 | Infectious Disease Progress Nt ---
Date of Service December 06, 2018 Assessment & Plan (1) UTI (urinary tract infection): continue Zerbaxa, would give additional 7 days total will treat for ? abscess, doubt he will be surgical candidate due to co-morbidities. spoke with primary service. (2) PNA (pneumonia): Subjective had increased wbc yesterday to 17, ct abd done and found to have multiple fluid collections abscess vs old blood. pt denies any abd pain, feels well overall. denies cp, sob, eating well. remains on zerbaxa and tolerating well. afebrile. spoke with primary, urology to eval, ? bladder injury as souce. has had multiple mdr gnr growing from urine. Review of Systems Review of Systems: All systems reviewed & are unremarkable except as noted in HPI & below Physical Exam Constitutional: + morbidly obese; not ill appearing Eyes: PERRL, conjunctivae normal, anicteric sclerae ENMT: external ear and nose normal, oropharynx normal Neck: trachea midline Respiratory: normal respiratory effort; no respiratory distress and no labored breathing Auscultation: + diminished lung sounds and + rhonchi Cardiovascular: Rate/Rhythm: regular rate and regular rhythm Extremities: + pedal edema Gastrointestinal (Abdomen): normal bowel sounds, soft, nontender, no hepatosplenomegaly Inspection/Auscultation: abdomen normal to inspection; abdomen not distended Musculoskeletal: Head/Neck/Chest: + head abnormal to inspection, normocephalic and head atraumatic Skin: no rashes, warm and dry Psychiatric: Orientation: alert Results & Data Vital Signs (Past 12 Hours) Vital Signs Temp Pulse Pulse Resp BP Pulse Ox 12/06/18 08:00 78 12/06/18 07:22 36.7 C 79 16 105/60 92 12/06/18 06:50 81 20 86 L 12/06/18 04:13 37.0 C 78 24 107/50 L 91 12/06/18 03:15 79 22 92 12/06/18 00:41 78 12/06/18 00:09 36.7 C 84 22 100/59 L 90 Laboratory Results Microbiology 11/29/18 10:34 Blood Aerobic Blood Culture - Final No growth in Aerobic bottle after 5 days. 11/29/18 10:34 Blood Anaerobic Blood Culture - Final 11/29/18 09:32 Blood Aerobic Blood Culture - Final No growth in Aerobic bottle after 5 days. 11/29/18 09:32 Blood Anaerobic Blood Culture - Final No growth in Anaerobic bottle after 5 days. 11/30/18 02:05 Urine,Straight Cath Urine Culture - Final Klebsiella pneumoniae ESBL Proteus mirabilis 11/29/18 Unknown Sputum,Trach Gram Stain - Final 11/29/18 Unknown Sputum,Trach Sputum Culture - Final Pseudomonas aeruginosa PG Care Time/CCT Total # of Minutes Spent Total Time Spent with Patient: Total time spent is greater than 50% in coordination of care (as documented) at patient's floor/unit and/or counseling patient: (1) UTI (urinary tract infection) Encounter type: subsequent encounter Indwelling urinary catheter type: indwelling urethral catheter Urinary tract infection type: catheter-associated UTI Qualified Code(s): T83.511D - Infection and inflammatory reaction due to indwelling urethral catheter, subsequent encounter; N39.0 - Urinary tract infection, site not specified
--- NOTE | 2018-12-06 11:35 | Urology Progress Note ---
Date of Service December 06, 2018 Assessment & Plan (1) Abnormal CT of the abdomen: 63yo M with multiple comorbidities, admitted with acute respiratory failure and sepsis, previously evaluated by our service for difficulty irrigating his chronic davey, which has since improved. Asked to re-evaluate patient regarding abnormal CT findings, ordered due to elevated WBCs. On exam, pt's abdomen is obese, but soft. Davey draining yellow with sediment. Images reviewed by both Dr. Heard and Dr. Hawkins, they do not believe the multiple extraperitoneal fluid collections have originated from the bladder. This is most likely a result of his multi-system organ failure. Continue hand irrigation as needed for clots. May consider increasing gauge if becomes difficult to irrigate again, or consider adding Renacidin solution if this becomes problematic again. attending addendum: Case reviewed with KIER DRIER, chart and imaging personally reviewed. Comorbid 63 yo male admitted with respiratory failure, multisystem organ failure, hospital day #7 on parenteral antibiotics per ID service. CT abd/pelvis repeated due to persistent leukocytosis to evaluate for nidus for infection. This demonstrates inflammatory changes, perivesical inflammation and questionable numerous, small fluid collections felt to be c/w small abscesses. Abdomen benign on exam. recalled to evaluate for possible bladder source of persistent leukocytosis suggested on radiology read of CT. History of bladder debris with davey malfunction, need for irrigation noted. Positive cultures noted to be respiratory and urinary, although in the context of a chronic davey and trach in an institutionalized comorbid patient these are not overly surprising. Patient's clinical picture is not overly consistent with miliary spread of infection from the bladder. Although a bladder microperforation could occur no significant quantities of fluid in the area suggest against gross spillage of infected urine. In any case, the management of such a scenario would be conservative, nonoperative with maintenance of the davey (size can be upgraded to avoid obstruction, regular hand irrigation and consideration of the use of Renacidin). I would suspect the patient's clinical presentation to be more due to a multifocal source of infection which might be less consequential in a less morbid patient. If there is significant concern over bladder perforation a CT cystogram can be performed to rule it out or define its extent, but it would be unlikely to prompt surgical exploration in this patient and the required bladder distension might create some risk in the context of his persistent bacteruria. Thank you for allowing us to participate in this patient's care. Please contact our service for further questions regarding this unfortunate patient's care. Subjective 63yo M with multiple comorbidities, admitted with acute respiratory failure and sepsis, previously evaluated by our service for difficulty irrigating his chronic davey, which has since improved. We were asked to re-evaluate patient today regarding abnormal CT findings. Despite abx therapy, his leukocytosis continues to climb, prompting CT scan. Pt was sleeping in bed, easily arousable. Answering yes/no questions appropriately, denies being in pain currently. Review of Systems Review of Systems: Unobtainable due to cognitive status (and tracheostomy) Physical Exam Constitutional: + ill appearing and + morbidly obese; no acute distress bedbound Eyes: no nystagmus ENMT: Ears: no hearing impairment Neck: trachea midline Respiratory: no respiratory distress and no cough tracheostomy intact Cardiovascular: Vessels: no JVD Chest (Breasts): Chest: normal inspection of chest Gastrointestinal (Abdomen): Inspection/Auscultation: abdomen not distended and no abdominal edema Percussion/Palpation: abdomen soft; abdomen nontender abd soft, nontender Musculoskeletal: Head/Neck/Chest: normocephalic and head atraumatic Skin: no rashes, warm and dry Neurologic: awake; not confused and not obtunded Psychiatric: Eye Contact: + poor eye contact Affect: no depressed affect Genitourinary: davey intact, draining yellow with sediment Lymphatic: no lymphadenopathy and no lymphedema Results & Data Vital Signs (Past 12 Hours) Vital Signs Temp Pulse Pulse Resp BP Pulse Ox 12/06/18 11:23 37.0 C 73 20 95/55 L 96 12/06/18 11:10 83 22 91 12/06/18 08:00 78 12/06/18 07:22 36.7 C 79 16 105/60 92 12/06/18 06:50 81 20 86 L 12/06/18 04:13 37.0 C 78 24 107/50 L 91 12/06/18 03:15 79 22 92 12/06/18 00:41 78 12/06/18 00:09 36.7 C 84 22 100/59 L 90
[2018-12-06] MEDS: ACETAMINOPHEN 325 MG TAB PO PRN (17:59)
--- NOTE | 2018-12-06 20:43 | Hospitalist Progress Note ---
Date of Service December 06, 2018 Assessment & Plan (1) Abnormal CT of the abdomen: Ct with numerous fluid collections extraperitoneal. some up to 5cm in size. microabscesses? small hematomas? combination? no pain on exam or peritoneal signs. in light of ongoing leukocytosis and poor progress will assume some element of infection w/ these fluid collections. discussed his CT with urology -- they do not feel they are due to a bladder microperforation or urinary tract pathology in general. discussed the CT with ID -- plan to extend his abx course at least 1 additional week. depending on how aggressive pt wants his care to be consider repeating the scan in 1-2 weeks. lastly, some of the collections could be blood in light of supratherapeutic INR of late. (2) Septic shock: Shock resolved. 2nd to MDR Pseudomonas pneumonia and UTI (due to ESBL Klebsiella and Proteus). Required ICU stay and pressors. Transferred from ICU on 12/02 to PCU. ID following. Zerbaxa recommended; initiated 12/01/18. Blood cultures negative. stop date of zerbaxa uncertain but now the plan is a lengthier course in light of CT abd/pelvis findings. (3) Acute respiratory failure with hypoxia: resolved. 2nd to pseudomonas pneumonia in setting of chronic trach. however, now having increasing o2 requirements. wanted to obtain cxr today - he refused. cont supportive care. he does not appear volume overloaded. (4) Pneumonia: LLL on imaging. Cont Zerbaxa (Ceftolozane/Tazobactam). Started on 12/01. Continue supportive care, nebs, etc. (5) UTI (urinary tract infection): 2nd Klebsiella ESBL as well as Proteus. Cont zerbaxa. ID input appreciated. Urology input appreciated. (6) Acute renal failure: Peak Creatinine was 6.2. Likely sepsis-associated ATN. Improving nicely with supportive care. Creatinine today again improved. Repeat bmp am. Continue to Hold lasix. Perhaps resume lasix tomorrow. (7) Anemia: chronic, stable. (8) Obesity hypoventilation syndrome: -Likely contributing to patient's poor respiratory status (9) Asthma: without exacerbation at this time. (10) H/O tracheostomy: S/P trach placement 2016 following intubation/mech ventilation for respiratory failure. records also suggest noncompliance with CPAP for KEARA and thus trach also placed for that reason. trach changed on 12/02. no issues at this time. (11) Atrial fibrillation and flutter: stable on telemetry. beta henrry on hold due to recent shock. INR still supratherapeutic - cont to HOLD coumadin; daily INR checks. (12) Supratherapeutic INR: reversed with vitamin k and FFP at admission. etiology of this?? poor appetite, perhaps some element of liver dysfunction, and potentiation from abx could all be contributing. hold coumadin. INR am. (13) Status post placement of cardiac pacemaker: Placed 2015. No issues at this time. due for pacer interrogation - ordered. (14) Heart failure, systolic, due to idiopathic cardiomyopathy: chronic systolic CHF. previous EF 40's. appears compensated today. resume BB when blood pressure will allow. lasix 40mg BID - hold as noted above. (15) DVT of lower extremity (deep venous thrombosis): on coumadin but holding as INR >4 (16) KEARA (obstructive sleep apnea): s/p trach placement 2015 previous noncompliance with CPAP for KEARA (17) Venous insufficiency: Wound consult appreciated for right calf wound legs stable / at baseline (18) Morbid obesity with BMI of 60.0-69.9, adult: BMI now 53.8 (19) Hypothyroidism: TSH compensated cont synthroid as is (20) Depression: increased zoloft to 100mg daily earlier this week (21) Renal mass, right: 3.3cm. chronic. very well could be RCC. very poor candidate for any definitive Rx in light of morbid obesity and numerous comorbidities. (22) Severe protein-calorie malnutrition: albumin at time of admission was 1.8. now <1.5. reports he was eating poorly pre-hospitalization. albumin earlier this year also low. he is malnourished. appetite remains poor - likely due to infectious issues. mentions he often complains of stomach pain at SNF - poor candidate for EGD. cont PPI. poor prognostic indicator especially in light of numerous issues. (23) DVT prophylaxis: coumadin resides at [facility] can get IV zerbaxa there if necessary 20+ minute discussion held with by phone today I expressed my concerns about his overall status, lack of improvement, his refusal of certain elements of his care, etc she is coming in tomorrow - will have bedside discussion with pt/ about goals of care, code status, etc. total time today about 65 minutes which included discussing care with ID, urology, and pt's spouse Subjective patient asked again "how much longer" he would be in the hospital. respiratory therapist and nursing reported more copious secretions today via trach and increasing o2 requirement. he refused to have a repeat cxr today. he stated he would be willing to have it tomorrow if necessary. he denied any new complaints. he stated several times he simply wanted to go back to [facility]. lengthy discussion held with today by phone - see A/P section for details. confirmed he has been nonambulatory for 3 years and has used davey catheter for "long time." she stated "I think he has simply given up" also spoke with ID and urology. Review of Systems Constitutional: + fatigue and + anorexia; no fever and no chills Respiratory: + cough; no dyspnea Cardiovascular: no chest pain Gastrointestinal: no abdominal pain, no nausea, no vomiting and no diarrhea/loose stools Physical Exam Constitutional: + morbidly obese; no acute distress and no altered mental status ENMT: external ear and nose normal, oropharynx normal Mouth: + dry oral mucous membranes (mild) Respiratory: normal respiratory effort Auscultation: lungs clear to auscultation bilaterally and + diminished lung sounds (bases) Cardiovascular: Rate/Rhythm: regular rate and regular rhythm Heart Sounds: normal S1 and normal S2; no murmur Vessels: posterior tibial pulses present and dorsalis pedis pulses present; no JVD Extremities: + edema (lymphedema b/l -- no change) Gastrointestinal (Abdomen): normal bowel sounds, soft, nontender, no hepatosplenomegaly Skin: + pallor Psychiatric: Orientation: alert and oriented x 3 Affect: + flat affect Results & Data Vital Signs (Past 12 Hours) Vital Signs Temp Pulse Pulse Resp BP Pulse Ox 12/06/18 19:49 69 18 94 12/06/18 19:21 36.6 C 75 14 121/69 94 12/06/18 16:00 78 12/06/18 15:49 72 90 12/06/18 15:15 37.0 C 78 20 108/53 L 90 12/06/18 11:23 37.0 C 73 20 95/55 L 96 12/06/18 11:10 83 22 91 Laboratory Results Laboratory Results - last 24 hr 12/06/18 12/06/18 12/06/18 05:34 05:34 05:34 WBC 17.62 H RBC 3.42 L Hgb 9.0 L Hct 28.7 L MCV 83.9 MCH 26.3 MCHC 31.4 L RDW Std Deviation 52.2 H RDW Coeff of Lexy 17.3 H Plt Count 374 MPV 7.7 Absolute Nucleated RBC 0.07 H Nucleated RBC % (auto) 0.4 PT 41.0 H INR 4.5 H Sodium 141 Potassium 4.1 Chloride 102 Carbon Dioxide 33 H Anion Gap 6.0 BUN 65 H Creatinine 1.28 Est Cr Clr Drug Dosing 94.6 Est GFR ( Amer) 69.1 Est GFR (Non-Af Amer) 59.6 BUN/Creatinine Ratio 50.5 H Glucose 108 H POC Glucose Calcium 8.6 12/06/18 12/06/18 12/06/18 07:24 11:22 16:24 WBC RBC Hgb Hct MCV MCH MCHC RDW Std Deviation RDW Coeff of Lexy Plt Count MPV Absolute Nucleated RBC Nucleated RBC % (auto) PT INR Sodium Potassium Chloride Carbon Dioxide Anion Gap BUN Creatinine Est Cr Clr Drug Dosing Est GFR ( Amer) Est GFR (Non-Af Amer) BUN/Creatinine Ratio Glucose POC Glucose 93 100 H 100 H Calcium 12/06/18 20:20 WBC RBC Hgb Hct MCV MCH MCHC RDW Std Deviation RDW Coeff of Lexy Plt Count MPV Absolute Nucleated RBC Nucleated RBC % (auto) PT INR Sodium Potassium Chloride Carbon Dioxide Anion Gap BUN Creatinine Est Cr Clr Drug Dosing Est GFR ( Amer) Est GFR (Non-Af Amer) BUN/Creatinine Ratio Glucose POC Glucose 114 H Calcium PG Care Time/CCT Total # of Minutes Spent Total Time Spent with Patient: Total time spent is greater than 50% in coordination of care (as documented) at patient's floor/unit and/or counseling patient: (1) UTI (urinary tract infection) Encounter type: subsequent encounter Indwelling urinary catheter type: indwelling urethral catheter Urinary tract infection type: catheter-associated UTI Qualified Code(s): T83.511D - Infection and inflammatory reaction due to indwelling urethral catheter, subsequent encounter; N39.0 - Urinary tract infection, site not specified (2) Acute renal failure Acute renal failure type: unspecified Qualified Code(s): N17.9 - Acute kidney failure, unspecified (3) Anemia Anemia type: other cause Other causes of anemia: other cause, not classified Qualified Code(s): D64.89 - Other specified anemias (4) Depression Depression Type: other depression Qualified Code(s): F32.89 - Other specified depressive episodes (5) Hypothyroidism Hypothyroidism type: acquired Qualified Code(s): E03.9 - Hypothyroidism, unspecified (6) DVT of lower extremity (deep venous thrombosis) Affected thrombotic vein of extremity: unspecified vein of extremity Chronicity: unspecified Laterality: unspecified laterality Qualified Code(s): I82.409 - Acute embolism and thrombosis of unspecified deep veins of unspecified lower extremity (7) Pneumonia Laterality: bilateral Lung location: lower lobe of lung Pneumonia type: due to unspecified organism Qualified Code(s): J18.1 - Lobar pneumonia, unspecified organism (8) Asthma Asthma complication type: unspecified Asthma persistence: unspecified Asthma severity: unspecified severity Qualified Code(s): J45.909 - Unspecified asthma, uncomplicated
[2018-12-07] MEDS: ALBUT/IPRATROP 3MG/0.5MG NEB 3 ML VIAL NEB SCH ×6 (03:18→23:26)
[2018-12-07] MEDS: CEFTOLOZANE/TAZOBACTAM 1,500 MG in DEXTROSE 5% 100 ML IV SCH ×3 (04:22→20:34)
[2018-12-07] MEDS: LEVOTHYROXINE SODIUM 100 MCG TABLET PO SCH (04:23)
[2018-12-07 05:46] LABS: Hematocrit (blood only) 28.6 % (42-52); Hemoglobin 8.6 g/dL (14.0-18.0); Mean Corpuscular Hemoglobin 26.1 pg (25-34); Mean Corpuscular Hgb Conc 30.1 g/dL (32-36); Mean Corpuscular Volume 86.7 fL (80-100); Mean Platelet Volume 8.2 fL (7.4-10.4); Nucleated RBC # (auto) 0.04 K/uL (0-0); Nucleated RBC % (auto) 0.3 %; Platelet Count 325 K/uL (130-400); RDW Coefficient of Variation 17.6 % (11.5-14.5); RDW Standard Deviation 54.2 fL (36.4-46.3); White Blood Count 13.58 K/uL (4.8-10.8)
[2018-12-07 06:04] LABS: Prothrombin Time 51.1 Seconds (9.0-12.0)
[2018-12-07 06:08] LABS: INR 5.6 (0.9-1.1)
[2018-12-07 06:20] LABS: Basophilic Stippling 1+; Basophils # (auto) 0.06 K/uL (0-0.2); Basophils % (auto) 0.4 %; Eosinophils # (auto) 0.42 K/uL (0-0.5); Eosinophils % (auto) 3.1 %; Hypochromasia Present; Immature Granulocytes # (auto) 1.35 K/uL (0.00-0.02); Immature Granulocytes % (auto) 9.9 %; Lymphocytes # (auto) 1.06 K/uL (1.2-3.4); Lymphocytes % (auto) 7.8 %; Monocytes % (auto) 5.9 %; Neutrophils # (auto) 9.89 K/uL (1.4-6.5); Neutrophils % (auto) 72.9 %; Polychromasia 1+; Toxic Granulation 1+
[2018-12-07 06:21] LABS: BUN Creatinine Ratio 45.8 (10-20); Calcium 8.6 mg/dl (8.5-10.1); Creatinine Clr Calc Pharmacy 102.6 ml/min; Est GFR (African American) 76.2; Est GFR (Non-African American) 65.7; Magnesium 2.1 mg/dl (1.8-2.4); Potassium 4.1 mmol/L (3.5-5.1)
[2018-12-07] MEDS: INSULIN ASPART 100 UNITS/ML 3 ML PEN SC SCH ×4 (08:57→21:06)
[2018-12-07] MEDS: LACTOBACILLUS ACIDOPHILUS (FLORANEX) TAB PO SCH ×3 (08:58→17:21)
[2018-12-07] MEDS: SERTRALINE HCL 100 MG TABLET PO SCH (08:58)
[2018-12-07] MEDS: PANTOprazole 40 MG TAB PO SCH (08:58)
[2018-12-07] MEDS: guaiFENesin 600 MG TABCR PO SCH ×2 (08:58→20:34)
[2018-12-07] MEDS: NYSTATIN POWDER 15GM BTL EXT SCH (09:01)
[2018-12-07] MEDS: METOPROLOL TARTRATE 25 MG TAB PO SCH ×2 (11:48→20:34)
[2018-12-07] MEDS: PHYTONADIONE 5 MG TAB PO SCH (11:49)
--- NOTE | 2018-12-07 20:36 | Hospitalist Progress Note ---
Date of Service December 07, 2018 Assessment & Plan (1) Abnormal CT of the abdomen: Ct with numerous fluid collections extraperitoneal. some up to 5cm in size. microabscesses? small hematomas? combination? continues to have no pain on exam or peritoneal signs. in light of ongoing leukocytosis, poor appetite, etc suspect element of infection w/ these fluid collections. discussed his CT with urology -- they do not feel they are due to a bladder microperforation or urinary tract pathology in general. discussed the CT with ID -- plan to extend his abx course at least 1 additional week. consider repeating the scan in 1-2 weeks to ensure improvement. lastly, some of the collections could be blood in light of supratherapeutic INR of late. (2) Septic shock: Shock resolved. 2nd to MDR Pseudomonas pneumonia and UTI (due to ESBL Klebsiella and Proteus). Required ICU stay and pressors. Transferred from ICU on 12/02 to PCU. ID following. Zerbaxa recommended; initiated 12/01/18. Blood cultures negative. stop date of zerbaxa uncertain but now the plan is a lengthier course in light of CT abd/pelvis findings. (3) Acute respiratory failure with hypoxia: resolved. 2nd to pseudomonas pneumonia in setting of chronic trach. O2 requirement stable. lungs clear today. defer on cxr today. (4) Pneumonia: LLL on imaging. Cont Zerbaxa (Ceftolozane/Tazobactam). Started on 12/01. Continue supportive care, nebs, etc. (5) UTI (urinary tract infection): 2nd Klebsiella ESBL as well as Proteus. Cont zerbaxa. ID input appreciated. Urology input appreciated. Plan to change davey tomorrow if INR is down. (6) Acute renal failure: Peak Creatinine was 6.2. Likely sepsis-associated ATN. Improving nicely with supportive care. Repeat bmp am. Continue to Hold lasix. (7) Anemia: chronic, stable. (8) Obesity hypoventilation syndrome: -Likely contributing to patient's poor respiratory status (9) Asthma: without exacerbation at this time. (10) H/O tracheostomy: S/P trach placement 2016 following intubation/mech ventilation for respiratory failure. records also suggest noncompliance with CPAP for KEARA and thus trach also placed for that reason. trach changed on 12/02. no issues at this time. (11) Atrial fibrillation and flutter: stable on telemetry. resume beta henrry. INR still supratherapeutic - cont to HOLD coumadin; daily INR checks. (12) Supratherapeutic INR: reversed with vitamin k and FFP at admission. etiology of this?? poor appetite, perhaps some element of liver dysfunction, and potentiation from abx could all be contributing. could also have vitamin K def in light of malnourishment. hold coumadin. INR am. vitamin k 5mg PO x 1. (13) Status post placement of cardiac pacemaker: Placed 2016. No issues at this time. due for pacer interrogation - ordered. (14) Heart failure, systolic, due to idiopathic cardiomyopathy: chronic systolic CHF. previous EF 40's. compensated. resume BB today at 1/2 his usual dose due to low-normal BPs. lasix 40mg BID - hold another day. (15) DVT of lower extremity (deep venous thrombosis): on coumadin but holding as INR >4 (16) KEARA (obstructive sleep apnea): s/p trach placement 2016 previous noncompliance with CPAP for KEARA (17) Venous insufficiency: Wound consult appreciated for right calf wound legs stable / at baseline severe lymphedema (18) Morbid obesity with BMI of 60.0-69.9, adult: BMI now <60 (19) Hypothyroidism: TSH compensated cont synthroid as is (20) Depression: increased zoloft to 100mg daily earlier this week (21) Renal mass, right: 3.3cm. chronic. very well could be RCC. very poor candidate for any definitive Rx in light of morbid obesity and numerous comorbidities. (22) Severe protein-calorie malnutrition: albumin at time of admission was 1.8. now <1.5. reports he was eating poorly pre-hospitalization. albumin earlier this year also low. he is malnourished. appetite remains poor - likely due to infectious issues. mentions he often complains of stomach pain at SNF - poor candidate for EGD. cont PPI. poor prognostic indicator especially in light of numerous issues. (23) DVT prophylaxis: coumadin resides at [facility] can get IV zerbaxa there if necessary spoke with pt/his at bedside to day for approximately 45 minutes discussed goals of care despite the mixed messages for his care he has been giving us this week he was more consistent in his wishes today those include -- * full code status * probably would NOT want HD but not 100% certain * if he needed lengthy courses of antibiotics he would want such * "wants to get better"; ultimate goal would be to return home with his but that is unlikely (has been at [facility] for 1 year) * ok with additional radiographic studies if needed * he voiced understanding of the renal mass and that it could be RCC and that he is not a candidate for surgery for this questions answered potentially back to SNF tomorrow if INR is down, wbc count stable, feeling good, eating ok total time today 70 minutes Subjective pt feeling better today. actually had an appetite. ate 100% breakfast. denies abd pain or other GI complaints. at bedside today - lengthy goals of care discussion held with patient and his . apparently patient had had cardiac arrest 10 years ago in [place]. also was on dialysis temporarily in the past. he is uncertain if he would ever want such again. spent 2 months in [facility] due to recurrent, severe infections. patient states he "wants to get better" and "wants to go home." Review of Systems Constitutional: + fatigue; no fever, no chills and no anorexia Respiratory: + cough and + sputum production (white); no dyspnea Cardiovascular: no chest pain Gastrointestinal: no abdominal pain, no nausea, no vomiting and no diarrhea/loose stools Physical Exam Constitutional: + morbidly obese; no acute distress and no altered mental status looks better today ENMT: external ear and nose normal, oropharynx normal Respiratory: normal respiratory effort Auscultation: lungs clear to auscultation bilaterally and + diminished lung sounds (bases) Cardiovascular: Rate/Rhythm: regular rate and regular rhythm Heart Sounds: normal S1 and normal S2; no murmur Vessels: posterior tibial pulses present and dorsalis pedis pulses present; no JVD Extremities: + edema (lymphedema b/l -- no change) Gastrointestinal (Abdomen): normal bowel sounds, soft, nontender, no hepatosplenomegaly Skin: + pallor Psychiatric: Orientation: alert and oriented x 3 Affect: + flat affect Results & Data Vital Signs (Past 12 Hours) Vital Signs Temp Pulse Resp BP Pulse Ox 12/07/18 19:51 36.8 C 64 22 122/46 L 96 12/07/18 19:15 60 18 95 12/07/18 16:56 36.9 C 60 18 139/83 99 12/07/18 11:03 36.6 C 73 19 106/56 L 95 Laboratory Results Laboratory Results - last 24 hr 12/07/18 12/07/18 12/07/18 05:32 05:32 05:32 WBC 13.58 H RBC 3.30 L Hgb 8.6 L Hct 28.6 L MCV 86.7 MCH 26.1 MCHC 30.1 L RDW Std Deviation 54.2 H RDW Coeff of Lexy 17.6 H Plt Count 325 MPV 8.2 Immature Gran % (Auto) 9.9 Neut % (Auto) 72.9 Lymph % (Auto) 7.8 [place] % (Auto) 5.9 Eos % (Auto) 3.1 Baso % (Auto) 0.4 Immature Gran # (Auto) 1.35 H Neut # (Auto) 9.89 H Lymph # (Auto) 1.06 L [place] # (Auto) 0.80 H Eos # (Auto) 0.42 Baso # (Auto) 0.06 Absolute Nucleated RBC 0.04 H Nucleated RBC % (auto) 0.3 Toxic Granulation 1+ Polychromasia 1+ Hypochromasia Present Basophilic Stippling 1+ PT 51.1 H INR 5.6 H* Sodium 142 Potassium 4.1 Chloride 104 Carbon Dioxide 35 H Anion Gap 3.0 BUN 54 H Creatinine 1.18 Est Cr Clr Drug Dosing 102.6 Est GFR ( Amer) 76.2 Est GFR (Non-Af Amer) 65.7 BUN/Creatinine Ratio 45.8 H Glucose 105 H POC Glucose Calcium 8.6 Magnesium 2.1 12/07/18 12/07/18 12/07/18 07:27 11:02 16:22 WBC RBC Hgb Hct MCV MCH MCHC RDW Std Deviation RDW Coeff of Lexy Plt Count MPV Immature Gran % (Auto) Neut % (Auto) Lymph % (Auto) [place] % (Auto) Eos % (Auto) Baso % (Auto) Immature Gran # (Auto) Neut # (Auto) Lymph # (Auto) [place] # (Auto) Eos # (Auto) Baso # (Auto) Absolute Nucleated RBC Nucleated RBC % (auto) Toxic Granulation Polychromasia Hypochromasia Basophilic Stippling PT INR Sodium Potassium Chloride Carbon Dioxide Anion Gap BUN Creatinine Est Cr Clr Drug Dosing Est GFR ( Amer) Est GFR (Non-Af Amer) BUN/Creatinine Ratio Glucose POC Glucose 97 113 H 117 H Calcium Magnesium 12/07/18 20:21 WBC RBC Hgb Hct MCV MCH MCHC RDW Std Deviation RDW Coeff of Lexy Plt Count MPV Immature Gran % (Auto) Neut % (Auto) Lymph % (Auto) [place] % (Auto) Eos % (Auto) Baso % (Auto) Immature Gran # (Auto) Neut # (Auto) Lymph # (Auto) [place] # (Auto) Eos # (Auto) Baso # (Auto) Absolute Nucleated RBC Nucleated RBC % (auto) Toxic Granulation Polychromasia Hypochromasia Basophilic Stippling PT INR Sodium Potassium Chloride Carbon Dioxide Anion Gap BUN Creatinine Est Cr Clr Drug Dosing Est GFR ( Amer) Est GFR (Non-Af Amer) BUN/Creatinine Ratio Glucose POC Glucose 97 Calcium Magnesium PG Care Time/CCT Total # of Minutes Spent Total Time Spent with Patient: Total time spent is greater than 50% in coordination of care (as documented) at patient's floor/unit and/or counseling patient: (1) UTI (urinary tract infection) Encounter type: subsequent encounter Indwelling urinary catheter type: indwelling urethral catheter Urinary tract infection type: catheter-associated UTI Qualified Code(s): T83.511D - Infection and inflammatory reaction due to indwelling urethral catheter, subsequent encounter; N39.0 - Urinary tract infection, site not specified (2) Acute renal failure Acute renal failure type: unspecified Qualified Code(s): N17.9 - Acute kidney failure, unspecified (3) Anemia Anemia type: other cause Other causes of anemia: other cause, not classified Qualified Code(s): D64.89 - Other specified anemias (4) Depression Depression Type: other depression Qualified Code(s): F32.89 - Other specified depressive episodes (5) Hypothyroidism Hypothyroidism type: acquired Qualified Code(s): E03.9 - Hypothyroidism, unspecified (6) DVT of lower extremity (deep venous thrombosis) Affected thrombotic vein of extremity: unspecified vein of extremity Chronicity: unspecified Laterality: unspecified laterality Qualified Code(s): I82.409 - Acute embolism and thrombosis of unspecified deep veins of unspecified lower extremity (7) Pneumonia Laterality: bilateral Lung location: lower lobe of lung Pneumonia type: due to unspecified organism Qualified Code(s): J18.1 - Lobar pneumonia, unspecified organism (8) Asthma Asthma complication type: unspecified Asthma persistence: unspecified Asthma severity: unspecified severity Qualified Code(s): J45.909 - Unspecified asthma, uncomplicated
[2018-12-08] MEDS: ALBUT/IPRATROP 3MG/0.5MG NEB 3 ML VIAL NEB SCH ×3 (03:29→11:02)
[2018-12-08] MEDS: CEFTOLOZANE/TAZOBACTAM 1,500 MG in DEXTROSE 5% 100 ML IV SCH ×2 (03:50→12:19)
[2018-12-08] MEDS: LEVOTHYROXINE SODIUM 100 MCG TABLET PO SCH (05:12)
[2018-12-08 08:39] LABS: Hematocrit (blood only) 30.3 % (42-52); Hemoglobin 9.1 g/dL (14.0-18.0); Mean Corpuscular Hemoglobin 25.9 pg (25-34); Mean Corpuscular Volume 86.1 fL (80-100); Mean Platelet Volume 8.5 fL (7.4-10.4); Platelet Count 400 K/uL (130-400); Red Blood Count 3.52 M/uL (4.7-6.1); White Blood Count 14.69 K/uL (4.8-10.8)
[2018-12-08 09:00] LABS: Basophils # (auto) 0.04 K/uL (0-0.2); Basophils % (auto) 0.3 %; Eosinophils # (auto) 0.29 K/uL (0-0.5); Immature Granulocytes # (auto) 0.79 K/uL (0.00-0.02); Immature Granulocytes % (auto) 5.4 %; Lymphocytes # (auto) 1.01 K/uL (1.2-3.4); Lymphocytes % (auto) 6.9 %; Monocytes % (auto) 4.8 %; Neutrophils # (auto) 11.86 K/uL (1.4-6.5); Neutrophils % (auto) 80.6 %; Polychromasia 1+
[2018-12-08 09:01] LABS: INR 1.7 (0.9-1.1); Prothrombin Time 16.7 Seconds (9.0-12.0)
[2018-12-08] MEDS: INSULIN ASPART 100 UNITS/ML 3 ML PEN SC SCH ×2 (09:03→12:22)
[2018-12-08] MEDS: SERTRALINE HCL 100 MG TABLET PO SCH (09:04)
[2018-12-08] MEDS: METOPROLOL TARTRATE 25 MG TAB PO SCH (09:04)
[2018-12-08] MEDS: LACTOBACILLUS ACIDOPHILUS (FLORANEX) TAB PO SCH ×2 (09:04→12:21)
[2018-12-08] MEDS: PANTOprazole 40 MG TAB PO SCH (09:04)
[2018-12-08] MEDS: NYSTATIN POWDER 15GM BTL EXT SCH (09:05)
[2018-12-08] MEDS: PHYTONADIONE 5 MG TAB PO SCH (09:05)
[2018-12-08] MEDS: guaiFENesin 600 MG TABCR PO SCH (09:08)
[2018-12-08 09:14] LABS: BUN Creatinine Ratio 43.5 (10-20); Calcium 8.6 mg/dl (8.5-10.1); Creatinine Clr Calc Pharmacy 97.6 ml/min; Est GFR (African American) 71.1; Est GFR (Non-African American) 61.3; Potassium 4.4 mmol/L (3.5-5.1)
[2018-12-08] MEDS ORDERED: FUROSEMIDE 40 MG TAB PO ONE (11:30)
[2018-12-08] MEDS ORDERED: WARFARIN SOD 2.5 MG TAB PO SCH (16:00)
--- NOTE | 2018-12-17 06:55 | Discharge Summary ---
Date of Service date of admission - 11/29/18 date of discharge - 12/08/18 Admission HPI Per Admitting Provider This is a 63-year-old male with PMHx of A. chirag/myra on Coumadin, hx of DVT, chronic systolic CHF, tachybradycardia syndrome s/p pacemaker implantation in 2015, during that same time time he required tracheostomy for acute respiratory decompensation, morbid obesity with BMI of 60.3, HTN, Hyperlipidemia, hypothyroidism, history of invasive group B strep infections in July, August and September 2017, gait disorder, edema, depression, anemia of chronic disease who presents from [facility] with acute respiratory failure. Patient notes his symptoms have been coming on for about 4 to 5 days, increased work of breathing with minimal movement, he does not walk at baseline, increased nausea with dry heaves, and limited p.o. intake. The patient complains of lower abdominal pain, soreness, which appears to have been going on for some time now. He also notes that he has not been urinating much in the past day. Patient is found to be in multiorgan failure, multifocal pneumonia, acute renal failure, hypotensive with blood pressure of 90/50 s/p 2 L NSS in the ER WBC = 16 K, with left shift, NT proBNP is 7430, creatinine 6.23, BUN 70, hyponatremic, hyperkalemic Supratherapeutic INR = 8.0 Principal Diagnosis septic shock 2nd to pseudomonas LLL pneumonia and davey-catheter associated UTI Discharge Exam Constitutional + morbidly obese; no acute distress and no altered mental status ENMT external ear and nose normal, oropharynx normal tracheostomy in place Respiratory normal respiratory effort Auscultation: lungs clear to auscultation bilaterally and + diminished lung sounds (bases) Cardiovascular Rate/Rhythm: regular rate and regular rhythm Heart Sounds: normal S1 and normal S2; no murmur Vessels: posterior tibial pulses present and dorsalis pedis pulses present; no JVD Extremities: + edema (severe lymphedema b/l -- no change from prior exams) Gastrointestinal (Abdomen) normal bowel sounds, soft, nontender, no hepatosplenomegaly Skin + pallor Psychiatric Orientation: alert and oriented x 3 Affect: + flat affect Discharge Data Allergies Allergy/AdvReac Type Severity Reaction Status Date / Time cefepime Allergy Intermediate RASH Verified 11/29/18 10:01 latex Allergy Intermediate DERMITITIS Verified 11/29/18 10:01 aztreonam Allergy Mild RASH Verified 11/29/18 10:01 Consultations 1. critical care 2. nephrology 3. urology 4. infectious disease 5. wound care team Ordered Studies 1. ultrasound of kidneys - no obstruction. 2. CT abd/pelvis - IMPRESSION: 1. Multiple lower abdominal and pelvic extraperitoneal fluid collections and infiltration with involvement of the rectus sheath. Differential considerations include an infectious process, of indeterminate etiology, with multiple abscesses. The bladder may be the source. Bladder injury/perforation cannot be excluded but no extraluminal gas. A traumatic etiology with subacute hematomas could appear similar. 2. Evaluation compromised the lack of IV contrast and artifact from body wall contacting the gantry. 3. 3.3 cm hyperdense right renal lesion. Although unchanged since CT of February 17, 2016, this lesion remains indeterminate and a neoplasm is the diagnosis of exclusion. Nonemergent renal protocol CT is recommended. 4. Small bilateral pleural effusions with left basilar opacity which may reflect pneumonia or atelectasis. 5. Bilateral nephrolithiasis. No ureteral calculi or hydronephrosis. 3. pacemaker interrogation 4. FFP x 1 unit Hospital Course (1) Septic shock: Required admission to the ICU with need for pressor agents. Septic shock was 2nd to LLL Multidrug resistant Pseudomonas pneumonia and UTI (due to ESBL Klebsiella and Proteus). Transferred from ICU to the telemetry unit on 12/02/18 after shock had resolved and there was clinical improvement. Blood cultures remained negative during the hospital stay. Seen in consult by infectious disease; Zerbaxa was recommended and initiated on 12/01/18 due to the multiple pathogens in the lungs/urine with significant resistance. He remained on zerbaxa for the remainder of his stay and will require 2 more days of such upon transfer back to [facility]. (2) Acute respiratory failure with hypoxia: Resolved. 2nd to LLL pseudomonas pneumonia in setting of chronic trach status. O2 requirement remained stable in the latter portion of his stay (30-40% FIO2 requirement via trach). (3) Abnormal CT of the abdomen: Late in the stay, due to his persistent leukocytosis despite broad-spectrum IV antibiotics, CT of the abdomen/pelvis was obtained. This demonstrated numerous extraperitoneal fluid collections with some up to 5cm in size. It was uncertain if these were microabscesses vs small hematomas vs a combination of the two. He had markedly elevated INR at time of admission and thus it was conceivable these were old hematomas. He apparently had been having nonspecific abdominal pain at the assisted leading up to this admission and had pain sporadically throughout the stay. Certainly these fluid collections could have been causing the symptoms. In the latter portion of the stay, however, he had no pain on exam or peritoneal signs. It was uncertain how long these fluid collections had been present. Discussed his CT with urology -- they did not feel they were due to a bladder microperforation or urinary tract pathology in general. Recommend repeating the CT scan in 1-2 weeks as outpatient to ensure improvement. (4) Pneumonia: LLL on imaging. 2nd to multidrug resistant pseudomonas. ID recommended Zerbaxa (Ceftolozane/Tazobactam). Started on 12/01/18. Will complete 10 days in total of zerbaxa. (5) UTI (urinary tract infection): 2nd ESBL Klebsiella as well as Proteus. Complicated/davey-catheter associated UTI (uses chronic davey outside of hospital). Seen by ID and urology. Will complete 10-day course of zerbaxa for the UTI (and pneumonia). Davey was exchanged on 12/08/2018. Needs urology follow-up post-discharge at [facility]. Continue davey replacement once a month as previous. (6) Acute renal failure: Peak Creatinine was 6.2. Likely sepsis-associated ATN. Improved nicely with treatment of sepsis and supportive care. Creatinine was 1.2 at discharge. (7) Anemia: chronic, stable. Hb 9.1 at discharge. Baseline Hb is 10-11. (8) Obesity hypoventilation syndrome: Likely contributes to patient's chronic respiratory status and need for trach. (9) Asthma: without exacerbation during the stay. (10) H/O tracheostomy: S/P trach placement 2016 following intubation/mech ventilation for respiratory failure. records also suggest noncompliance with CPAP for KEARA and thus trach also placed for that reason. Trach was changed on 12/02/18. (11) Atrial fibrillation and flutter: Was stable on telemetry during the hospitalization. INR was severely supratherapeutic at time of admission with INR of nearly 10. INR was 1.7 on day of discharge. Coumadin was held most of his stay. Suspect that poor appetite leading up to this admission, possible vitamin K deficiency, and potentially even liver dysfunction may have contributed to the high INR. On day of discharge coumadin of 2.5mg daily was advised. Daily INR checks also recommended in light of significant variability of the INR of late. Would recommend daily INR checks until stability of INR is established. (12) Supratherapeutic INR: Reversed with vitamin k and FFP at admission. Resolved. See "a fib" above. (13) Status post placement of cardiac pacemaker: Placed 2016. s/p pacemaker interrogation this admission - no issues found with pacer function and adequate battery life remains. (14) Heart failure, systolic, due to idiopathic cardiomyopathy: chronic systolic CHF. previous EF 40's. compensated during the stay. He will continue on beta henrry along with lasix 40mg BID. (15) DVT of lower extremity (deep venous thrombosis): on coumadin see discussion above (16) KEARA (obstructive sleep apnea): s/p trach placement 2016 previous noncompliance with CPAP for KEARA (17) Venous insufficiency: Wound consulted for management of .right calf wound Has severe lymphedema at baseline. (18) Morbid obesity with BMI of 60.0-69.9, adult: BMI had been in the 60s. At discharge the BMI was calculated at 54. (19) Hypothyroidism: TSH compensated cont synthroid (20) Depression: increased zoloft to 100mg daily this admission. needs follow-up of depression at the assisted. (21) Renal mass, right: 3.3cm. chronic. very well could be renal cell cancer. very poor candidate for any definitive Rx in light of morbid obesity and numerous comorbidities. patient and his are aware of this mass. if indeed it is renal cell cancer it could be contributing to chronic fatigue, anemia, anorexia, etc. (22) Severe protein-calorie malnutrition: albumin at time of admission was 1.8. now <1.5. reported he was eating poorly pre-hospitalization. albumin earlier this year was also low. suspect multi-factorial nature of this - depression, potential for kidney cancer, etc. (23) Unfavorable prognosis: Lengthy discussion was held with the patient and his prior to discharge to define goals of care. During the hospitalization he often refused portions of his care (x-rays, vitals, getting out of bed, etc). Apparently he has had similar behavior at the assisted. Patient reported he wanted to continue aggressive care (would want to be full code status, continue IV antibiotics as necessary, etc) despite often refusing portions of his care. He was open to speaking with palliative care back at [facility], however. Total Time Total Time Spent Total Time Spent (In Minutes): 45 Total Time Includes: Examination of the Patient, Discharge Planning, Medication Reconciliation and Communication With Other Providers Discharge Plan Discharge Items Patient Disposition: Transfer Long-Term Fac Reason For Visit: ACUTE RESPIRATORY FAILURE, SEPSIS, PNEUMONIA Discharge Diagnosis: 1. LLL pseudomonas pneumonia. 2. Urinary Tract Infection. 3. Septic shock and acute respiratory failure - resolved. 4. Numerous fluid collections in abdomen - either infectious or old blood. 5. Acute Renal Failure - resolved. Discharge Goals: Diagnostic testing and Therapeutic intervention Activity: Resume your previous activity Non-emergency contact: Primary Care Provider and Wallpaper Printer Helper Call non-emergency contact if: you have any medication questions, your symptoms worsen, your pain is not controlled and your temperature is above 100.5 Follow-up/Referrals: Amando Tucker MD [Physician] - (see Dr Tucker in 1 week for pacemaker and congestive heart failure) Ale Bullard CRNP [Nurse Practitioner] - (see [facility] within 2 weeks) [facility] [Primary Care Provider] - (see medical and health services manager within 48 hours) Diet: Carb Consistent or DM2 and Heart Healthy Fluids: 2000ml (8 cups) Diet Texture: Dental soft (bite-sized) Addtl Provider Instructions: Mr Gusman was treated for septic shock - initially in the ICU and then later in the medical step-down. Sepsis was due to pneumonia and UTI. His stay was complicated by acute renal failure, very high INR (nearly 9 at one point), poor appetite, and the discovery of fluid collections in his abdomen (either due to old blood or possibly infection). Recommendations - 1. 48 hours more (6 doses) of IV zerbaxa via right arm IV. 2. repeat CT of the abdomen/pelvis in 10-14 days to recheck the fluid collections in abdomen. 3. DAILY INR starting 12/09/18. Please check the INR for 4 days straight (due to recently high INR and considerable variability of the INR) INR on 12/08/18 was 1.7. Report results to medical and health services manager. 4. Repeat CBC with diff, BMP, and magnesium in 3 days. Results to medical and health services manager. 5. Davey catheter was exchanged on 12/08/18 at [facility]. Please change davey every 28-30 days thereafter. 6. O2 via trach to keep o2 sats >90%. Currently on 40% FiO2 at [facility]. 7. Wound care/dressings to bilateral posterior lower leg wounds per wound care recommendations. 8. Resume lasix (furosemide) 40mg twice daily -- first dose on AM of 12/09/18. 9. Consult Palliative Care upon admission to [facility]. 10. If possible please check daily weights on [facility]. If any weight gain of more than 4 pounds in 1-2 days please contact the medical and health services manager. Follow-up - see separate section. Return to [facility] if -- -fever over 100.5 degrees -increasing oxygen requirements -worsening shortness of breath -chest pain or abdominal pain -severe diarrhea -any other concerns Prescriptions: New ipratropium-albuterol 0.5 mg-3 mg(2.5 mg base)/3 mL Solution For Nebulization 3 ml NEB QID Qty: 1 RF: 5 warfarin [Coumadin] 2.5 mg Tablet 2.5 mg PO DAILY@1600 Qty: 30 RF: 0 guaifenesin [Mucinex] 600 mg Tablet Extended Release 12hr 1,200 mg PO Q12 10 Days Qty: 40 RF: 0 Continued acetaminophen 325 mg Tablet 325 mg PO Q6H PRN (Reason: Pain) RF: 0 simvastatin 10 mg Tablet 10 mg PO PM RF: 0 acetaminophen 650 mg Tablet Extended Release 650 mg PO DAILY PRN (Reason: Fever) RF: 0 magnesium hydroxide [Milk of Magnesia] 400 mg/5 mL Suspension 30 ml PO HS PRN (Reason: Constipation) RF: 0 bisacodyl 10 mg Suppository 10 mg CO DAILY PRN (Reason: Constipation) RF: 0 pantoprazole 40 mg Tablet,Delayed Release (Dr/Ec) 40 mg PO DAILY RF: 0 ferrous sulfate 325 mg (65 mg iron) Tablet 325 mg PO DAILY RF: 0 Fleet Enema 19-7 gram/118 mL Enema 118 ml CO DAILY PRN (Reason: Constipation) RF: 0 metoprolol succinate 25 mg Tablet Extended Release 24 Hr 25 mg PO DAILY RF: 0 nystatin 100,000 unit/gram Powder 1 applic TOPICAL DAILY RF: 0 chlorhexidine gluconate 0.12 % Mouthwash 15 ml PO BID RF: 0 Calmoseptine 0.44-20.6 % Ointment 1 applic TOPICAL QID PRN (Reason: Wound Care) RF: 0 levothyroxine 100 mcg Tablet 100 mcg PO DAILY RF: 0 furosemide 40 mg Tablet 40 mg PO BID Qty: 0 RF: 0 aspirin 81 mg Tablet,Delayed Release (Dr/Ec) 81 mg PO DAILY RF: 0 Changed sertraline 50 mg Tablet 100 mg PO DAILY Qty: 60 RF: 5 Discontinued albuterol sulfate 2.5 mg /3 mL (0.083 %) Solution For Nebulization 3 ml INHALATION QID RF: 0 tamsulosin 0.4 mg Capsule 0.4 mg PO DAILY RF: 0 warfarin 7.5 mg Tablet 7.5 mg PO Q OTHER DAY RF: 0 warfarin 5 mg Tablet 5 mg PO Q OTHER DAY RF: 0 Stand-Alone Forms: [facility] Discharge Orders: Discharge Order (Routine); Ordered 12/08/18 Ordered By: Jason Granda Skilled Items Patient informed of condition?: Yes DNR: No Discharge Level of Care: Skilled Communicable Disease: Yes Discharge Prognosis: Stable Admission Data Admit Date/Time: 11/29/18 11:43 Attending Provider: Jason Granda Admit Provider: Miguel Graves Primary Care Provider: Bharathi Wilson Other Providers: Massimo Godfrey ; Miguel Graves ; Piotr Ronquillo ; Yuriy Tan ; Bhavik Coleman ; Michael Heard Service: Telemetry Other Interventions: Discharge Summary Assessment (RN) Last Done: 12/08/18 13:20 Pending Studies at Discharge: No DC Date/Time DO NOT enter until pt leaves facility: 12/08/18 14:05
== END 2018-12-08 14:05 | DRG 871 ==
LOC: ED 09:00 → SUATTDRO 11:43 → 1E 11:43 → 2E 12-02 13:25
DX: Z79.01 Long term (current) use of anticoagulants; E87.1 Hypo-osmolality and hyponatremia; Z91.040 Latex allergy status; E66.2 Morbid (severe) obesity with alveolar hypoventilation; R65.21 Severe sepsis with septic shock; I87.2 Venous insufficiency (chronic) (peripheral); Z79.82 Long term (current) use of aspirin; E87.5 Hyperkalemia; I48.91 Unspecified atrial fibrillation; Z68.44 Body mass index [BMI] 60.0-69.9, adult; N17.0 Acute kidney failure with tubular necrosis; A41.9 Sepsis, unspecified organism; Z90.49 Acquired absence of other specified parts of digestive tract; J96.01 Acute respiratory failure with hypoxia; J45.909 Unspecified asthma, uncomplicated; I50.22 Chronic systolic (congestive) heart failure; Z86.14 Personal history of Methicillin resistant Staphylococcus aureus infection; Z93.0 Tracheostomy status; N40.1 Benign prostatic hyperplasia with lower urinary tract symptoms; J15.1 Pneumonia due to Pseudomonas; Z95.0 Presence of cardiac pacemaker

== ENCOUNTER 2018-12-20 11:07 | Inpatient (IN) ==
[2018-12-20] MEDS ORDERED: SODIUM CHLORIDE 0.9% 1000ML 1,000 ML IV SCH (11:30)
--- NOTE | 2018-12-20 11:43 | History & Physical Report ---
Date of Service December 20, 2018 Assessment & Plan (1) ADAM (acute kidney injury): (2) Renal mass, right: - Hx of RCC, followed by nephrology as outpatient - Monitor Cr. as is elevated at 8.0 with BUN = 118 - Place davey and maintain for strict I/Os - Renal U/S was done on 11/29, no repeat at this time - Nephrology consulted as the patient may be a candidate for emergent dialysis if his condition were to worsen - Check random urine creat, random sodium urine, urea urine, microscopy (3) Chronic indwelling Davey catheter: - During last admit had ESBL Klebsiella as well as Proteus - follow cultures Complicated/davey-catheter associated UTI (uses chronic davey outside of hospital). - Consider urology consult - Nephro consult - Recently completed 10-day course of zerbaxa for the UTI (and pneumonia). - Davey was exchanged on 12/08/2018 (4) Anemia: - Baseline Hb is 10-11 - Currently at 7.2, type and screen, 1 PRBCs ordered in the ER - Follow with serial H&H at 2000 and am labs - Continue iron supplementation - Secondary to supratherapeutic INR and gross hematuria (5) Supratherapeutic INR: - INR of 10.4 - Received Vit K 10 mg IV in the ER, follow INR later this evening on recheck at 2000 - Hold coumadin - Follow with am labs (6) Atrial fibrillation and flutter: - Hold coumadin - INR elevated at 10.4 at [place] [facility] - Continue rate controlling agents (7) Heart failure, systolic, due to idiopathic cardiomyopathy: - Admit to PCU - chronic systolic CHF - Recent echo showing LVEF of 40% - continue on beta henrry along with lasix 40mg BID (8) Dyslipidemia: - Cont statin therapy (9) Hyponatremia: - Na slightly down 131 upon admission, follow am prp (10) KEARA (obstructive sleep apnea): - s/p trach placement 2015 - previous noncompliance with CPAP for KEARA (11) Obesity hypoventilation syndrome: - noted (12) Asthma: - Hx of such, continue nebs QID as per home meds (13) H/O tracheostomy: - spaced in 2015 following intubation and mechanical ventilation for respiratory failure - noncompliance with CPAP for KEARA and the trache was placed as a result - Was changed during last admission on 12/02/18 (14) Lymphedema: - Wound consulted - appreciate (15) Venous insufficiency: - Chronic, wound consult for ulcerations on the R calf - Lymphedema at baseline (16) Morbid obesity with BMI of 60.0-69.9, adult: - BMI of 59 this time, was over 60 during last admission - HH/DM diet (17) Hypothyroidism: - Continue levothyroxine 100 mcg daily (18) Depression: - Continue sertraline 100 mg daily (19) Abnormal CT of the abdomen: - Follow up imaging to be obtained within one week - Review to see if numerous extraperitoneal fluid collections with some up to 5cm in size, ? if these areas were microabscesses vs small hematomas vs a combination of the two. Consider old hematoma from even previous admission as well as possible new ones today with INR being significantly supratherapeutic again. (20) Severe protein-calorie malnutrition: - recommend boost supplementation QID if pt is agreeable (21) History of group B Streptococcus (GBS) infection: - Consider ID consultation - Follow cultures (22) Gait disorder: - Has not been ambulatory for 2 years - PT/OT consults (23) DVT prophylaxis: - no chemical ppx ordered with supratherapeutic INR, gross hematuria - teds/scds not able to be placed due to lymphedema and chronic wounds Dispo: From [facility], PT/OT consults, likely to remain in the hospital for 2 days. History of Present Illness Primary Care Provider: [facility] This is a 63-year-old male who was recently admitted from 11/29/2018 through 12/08/2018 and discharged back to [facility]. Patient medical comorbidities include A. fib/a flutter on Coumadin, history of DVT, chronic systolic CHF, tachybrady syndrome s/p pacemaker implantation in 2016, during that time he required tracheostomy for acute respiratory decompensation, uses a speaking valve chronically, morbidly obese with BMI of 60, HTN, HLD, hypothyroidism, history of invasive group B strep infection in July, August and September 2017, gait disorder, has been bedbound for approximately 2 years, lower extremity edema, depression, anemia of chronic disease, KEARA, venous insufficiency, obesity hypoventilation syndrome. During his most recent hospital stay he was diagnosed with septic shock secondary to pseudomonas pneumonia and UTI (due to ESBL Klebsiella and Proteus) he was placed on Zerbaxa during that hospital stay by infectious disease as multiple pathogens were multidrug resistant. The patient has been at [facility] since his discharge. He has been experiencing gross hematuria which started about 3 days ago. It has been worsening to the point of being bright red with clots in davey. Denies pressure or cramping. Pt notes the davey was changed recently, per chart it was on 12/08/18 prior to discharge. Denies issues with shortness of breath or chest pain. He feels the issues with sob has nearly resolved since finishing the antibiotic course from the previous admission. He reports no changes of worsening swelling in his legs or feet. Oral intake has been poor as he states "nothing tastes any good", and therefore has been several days since he has had a BM. Today the patient had routine labs collected at [facility] which revealed significant abnormalities including INR of 10.4, creatinine of 8.10, BUN of 118, sodium 130, anion gap of 14, CO2 of 20, and hemoglobin of 7.1. CKR shows congestive failure. Nephrology consulted for possible needs for dialysis and fluid overload. INR being reversed with Vit K. Allergies Allergy/AdvReac Type Severity Reaction Status Date / Time cefepime Allergy Intermediate RASH Verified 11/29/18 10:01 latex Allergy Intermediate DERMITITIS Verified 11/29/18 10:01 aztreonam Allergy Mild RASH Verified 11/29/18 10:01 Home Medications Home Medications Medication Instructions Recorded Confirmed Type Calmoseptine 1 applic TOPICAL Q6 PRN 12/30/17 12/20/18 History Fleet Enema 118 ml HI Q24W PRN 12/30/17 12/20/18 History acetaminophen 650 mg PO Q6 PRN 12/30/17 12/20/18 History bisacodyl 10 mg HI Q24W PRN 12/30/17 12/20/18 History chlorhexidine gluconate 15 ml PO BID 12/30/17 12/20/18 History ferrous sulfate 325 mg PO QAM 12/30/17 12/20/18 History magnesium hydroxide [Milk of 30 ml PO HS PRN 12/30/17 12/20/18 History Magnesia] nystatin 1 applic TOPICAL DAILY 12/30/17 12/20/18 History pantoprazole 40 mg PO QAM 12/30/17 12/20/18 History simvastatin 10 mg PO QAM 12/30/17 12/20/18 History aspirin 81 mg PO QAM 08/25/18 12/20/18 History levothyroxine 100 mcg PO QAM 11/29/18 12/20/18 History furosemide 40 mg PO BID #0 tab 12/08/18 12/20/18 Rx ipratropium-albuterol 3 ml NEB QID #1 box 12/08/18 12/20/18 Rx warfarin [Coumadin] 2.5 mg PO DAILY@1600 #30 tab 12/08/18 12/20/18 Rx Probiotic 1 cap PO BID 12/20/18 12/20/18 History amoxicillin 500 mg PO TID PRN 12/20/18 12/20/18 History ascorbic acid (vitamin C) 500 mg PO BID 12/20/18 12/20/18 History guaifenesin 1,200 mg PO BID 12/20/18 12/20/18 History metoprolol tartrate 25 mg PO QAM 12/20/18 12/20/18 History multivitamin with minerals 1 tab PO QAM 12/20/18 12/20/18 History [Multiple Vitamin-Minerals] sertraline 100 mg PO QAM 12/20/18 12/20/18 History Past Med/Surg History Medical History Hyponatremia Gait disorder History of group B Streptococcus (GBS) infection Acute respiratory failure with hypoxia Pneumonia (Acute) Acute renal failure (Acute) Heart failure, systolic, due to idiopathic cardiomyopathy (Chronic) "echo 12/01/15 - EF 35-39%, abnormal diastolic dysfunction" KEARA (obstructive sleep apnea) (Chronic) Venous insufficiency (Chronic) Hx MRSA infection (Chronic) "02/2016 in sputum" Obesity hypoventilation syndrome Atrial fibrillation and flutter (Chronic) Pacemaker (Acute) 2011 - SSS Tracheostomy tube present (Acute) 2015 - 05/13 obesity hypoventilation syndrome Ventral hernia (Acute) Anemia Asthma Atrial fibrillation on warfarin BPH (benign prostatic hyperplasia) 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 catheter Bacteremia due to group B Streptococcus 09/2017 - requiring indefinite oral suppressive antibiotic therapy Cardiomyopathy Chronic edema BLLE Chronic indwelling Davey catheter Chronic respiratory failure Chronic venous stasis Congestive heart failure Generalized weakness History of DVT (deep vein thrombosis) Hyperlipidemia Indwelling Davey catheter present Lymphedema Major depressive disorder Morbid obesity Obesity hypoventilation syndrome On home oxygen therapy Recurrent UTI Sleep apnea Surgical History Status post placement of cardiac pacemaker H/O tracheostomy (Chronic) History of bronchoscopy w/ trach change 01/2018 [facility] History of cholecystectomy History of hernia repair Family History Other No significant family history Social History Preferred Language: Somali Communication Ability: Impaired Reimbursement Counselor Required: No Beliefs That Will Affect Care: None Current Living Situation: Long-Term Current Living Situation Comment: resident at [facility] Other Information That Helps Us Care for You: No Feels Safe at Home: Yes Safety Concerns: Feels Safe At This Time Smoking Status: Never smoker Hx Alcohol Use: No Hx Substance Use: No Review of Systems Review of Systems: Constitutional: No fever, sweats or chills Eyes: No diplopia, no worsening or blurred vision ENT: normal hearing, no trouble swallowing, +trache without bleeding or other issues Respiratory: No cough, sputum, dyspnea at rest Cardiovascular: No chest pain, tightness or palpitations Abdomen: + poor appetite, No pain, nausea, vomiting, diarrhea or constipation Musculoskeletal: No joint pain, calf pain, swelling Neurologic: No weakness, numbness/tingling, +bed bound Psychiatric: + depression Skin: Wound on the R calf, attempt to keep skin folds clean with topical fluconazole powder Physical Exam Physical Exam: General: awake, alert, no apparent distress, + morbidly obese in bariatric bed Head: Normocephalic, atraumatic ENT: PERRL, EOMI, no pharyngeal exudate, mucous membranes moist, + trache collar in place Chest: +tracheostomy, getting duoneb at bedside, + diminished at bases slightly, no crackles, wheezes or rales Cardiac: NSR, rate controlled, +faint MCKENZIE, JVD difficult to assess due to body habitus, normal peripheral pulses, good capillary refill Abdominal: NABS x 4 quadrants, soft, nontender to palpation, no rebound, guarding or tenderness : indwelling davey cath with dark red hematuria and clots in tubing Extremities: + lymphedema BLE, + chronic venous stasis changed bilaterally, +2 erythema BLE, calfs nontender to palpation Psych: depressed mood and flat affect Neuro: AAO x 3, no gross motor deficits, speech is clear Results & Data Diagnostic Findings XR chest 1V portable CLINICAL HISTORY: weakness mental status change COMPARISON STUDY: 11/30/2018 FINDINGS: Cardiomegaly. Bipolar cardiac pacemaker. Findings of developing congestive heart failure. Small right effusion. Tracheostomy tube 3 cm from the alysha. IMPRESSION: 1. Congestive heart failure. 2. Tube and line positions as noted. ECG Additional Comments: 20-DEC-2018 12:18:04 [facility]-EDSTAT ROUTINE RETRIEVAL Poor data quality, interpretation may be adversely affected Normal sinus rhythm ST & T wave abnormality, consider anterolateral ischemia Abnormal ECG When compared with ECG of 30-NOV-2018 06:42, Sinus rhythm has replaced Ectopic atrial rhythm T wave inversion now evident in Anterior leads 25mm/s 10mm/mV 150Hz 9.0.9 12SL 241 GERALD: 3 Referred by: REFERRED SELF Unconfirmed Vent. rate 76 BPM HI interval 188 ms QRS duration 86 ms QT/QTc 394/443 ms P-R-T axes 51 15 37 Code Status & VTE Plan Code Status Full code-discussed with the patient at bedside Palliative care has been consulted previously during last admission for discussion of goals of care. Supervising Physician Co-Signing Physician Notes Patient seen and examined, chart reviewed, case discussed with RUSS Stephenson and I agree with her assessment and plan as documented above. Briefly, patient is a chronically ill 63yo male presenting with kamille hematuria, ADAM on CKD, RCC and markedly elevated INR. On exam he is morbidly obese, tracheostomy in place with TC 10L/min, NAD, +pallor Skin - no rash, chronic venous stasis changes on bilateral LE HEENT - NC/AT, PERRL, MMM, tracheostomy in place, no bleeding/drainage Heart - +S1/S2, regular Lungs - diminished breath sounds, coarse anteriorly, no rales/wheezes Abd - obese, soft, NT/ND Ext - +lymphedema of bilateral LE. Davey in place with kamille blood in bag Labs and images reviewed. Significant for elevated WBC near baseline, microcytic anemia with Hg of 7.2 and Hct of 22.7, MCV=79.6. Down from prior value of 9.1. INR = 10.4, Pu=428, K=4.2, Cl=96, HCO3=19, DLE=888, Cr=8.24 Assessment/Plan: 63yo C male with multiple medical comorbidities presenting with ADAM, BUN of 118 and Cr of 8.24, hematuria in setting of elevated INR -Patient is still passing blood per davey. He has an anion gap metabolic acidosis with pH of 7.31 which is to be expected in setting of his ADAM. Electrolytes are acceptable at this time. Do not believe that he needs urgent dialysis at this time. He is anuric, may need volume removed if he is transfused -INR reversal with Vitamin K. Patient with poor PO intake - food tasting poorly, ?worsening renal function with dysgeusia -Hold Coumadin and monitor INR -Renal consult appreciated -Remainder of plan as above PG Care Time/CCT Total # of Minutes Spent Total Time Spent with Patient: Total time spent is greater than 50% in co ordination of care (as documented) at patient's floor/unit and/or counseling patient: (1) Anemia Anemia type: other cause Other causes of anemia: other cause, not classified Qualified Code(s): D64.89 - Other specified anemias (2) Depression Depression Type: other depression Qualified Code(s): F32.89 - Other specified depressive episodes (3) Hypothyroidism Hypothyroidism type: acquired Qualified Code(s): E03.9 - Hypothyroidism, unspecified (4) Asthma Asthma complication type: unspecified Asthma persistence: unspecified Asthma severity: unspecified severity Qualified Code(s): J45.909 - Unspecified asthma, uncomplicated
--- NOTE | 2018-12-20 11:58 | XRay Report ---
XR chest 1V portable CLINICAL HISTORY: weakness mental status change COMPARISON STUDY: 11/30/2018 FINDINGS: Cardiomegaly. Bipolar cardiac pacemaker. Findings of developing congestive heart failure. Small right effusion. Tracheostomy tube 3 cm from the alysha. IMPRESSION: 1. Congestive heart failure. 2. Tube and line positions as noted. The above report was generated using voice recognition software. It may contain grammatical, syntax or spelling errors. Electronically signed by: Andrey Link M.D. 12/20/2018 11:57 AM
[2018-12-20 12:24] LABS: Basophils # (auto) 0.02 K/uL (0-0.2); Basophils % (auto) 0.2 %; Eosinophils # (auto) 0.12 K/uL (0-0.5); Eosinophils % (auto) 1.1 %; Hematocrit (blood only) 22.7 % (42-52); Hemoglobin 7.2 g/dL (14.0-18.0); Immature Granulocytes # (auto) 0.11 K/uL (0.00-0.02); Lymphocytes # (auto) 0.66 K/uL (1.2-3.4); Lymphocytes % (auto) 5.9 %; Mean Corpuscular Hemoglobin 25.3 pg (25-34); Mean Corpuscular Hgb Conc 31.7 g/dL (32-36); Mean Corpuscular Volume 79.6 fL (80-100); Mean Platelet Volume 8.1 fL (7.4-10.4); Monocytes # (auto) 0.83 K/uL (0.11-0.59); Monocytes % (auto) 7.4 %; Neutrophils # (auto) 9.48 K/uL (1.4-6.5); Neutrophils % (auto) 84.4 %; Platelet Count 391 K/uL (130-400); RDW Coefficient of Variation 18.1 % (11.5-14.5); RDW Standard Deviation 53.3 fL (36.4-46.3); Red Blood Count 2.85 M/uL (4.7-6.1); White Blood Count 11.22 K/uL (4.8-10.8)
[2018-12-20] MEDS ORDERED: SODIUM CHLORIDE 0.9% 250 ML IV PRN ×4 (12:42→21:16)
[2018-12-20 12:43] LABS: Prothrombin Time > 90.0 Seconds (9.0-12.0)
[2018-12-20] MEDS ORDERED: PHYTONADIONE 10 MG in SODIUM CHLORIDE 0.9% 50 ML IV ONE (12:43)
[2018-12-20 12:49] LABS: Hypochromasia Present
[2018-12-20 12:52] LABS: Alanine Aminotransferase 18 U/L (12-78); Albumin Globulin Ratio 0.3 (0.9-2); Albumin Level 1.7 gm/dl (3.4-5.0); Alkaline Phosphatase 88 U/L (45-117); Aspartate Aminotransferase 21 U/L (15-37); BUN Creatinine Ratio 15.5 (10-20); Bilirubin,Total 0.9 mg/dl (0.2-1); Blood Urea Nitrogen 128 mg/dl (7-18); Calcium 8.1 mg/dl (8.5-10.1); Carbon Dioxide 19 mmol/L (21-32); Chloride 96 mmol/L (98-107); Creatinine Clr Calc Pharmacy 14.7 ml/min; Est GFR (African American) 7.3; Est GFR (Non-African American) 6.3; Globulin 6.1 gm/dl (2.5-4.0); Glucose 95 mg/dl (70-99); Magnesium 2.5 mg/dl (1.8-2.4); Potassium 4.2 mmol/L (3.5-5.1); Sodium 131 mmol/L (136-145); Total Protein 7.8 gm/dl (6.4-8.2); Troponin I < 0.015 ng/ml (0-0.045)
[2018-12-20 13:02] LABS: INR 10.4 (0.9-1.1)
[2018-12-20] MEDS: SODIUM CHLORIDE 0.9% 1000ML 1,000 ML IV ONE ×2 (13:22→16:20)
[2018-12-20] MEDS ORDERED: MAGNESIUM HYDROXIDE SUSP 30 ML UDC PO PRN (14:28)
[2018-12-20] MEDS ORDERED: ONDANSETRON INJ 2 MG/ML 2 ML VIAL IV PRN (14:28)
[2018-12-20] MEDS: ALBUT/IPRATROP 3MG/0.5MG NEB 3 ML VIAL NEB SCH ×2 (15:38→19:30)
[2018-12-20 15:53] LABS: Allen Test Pos (Pos); Base Excess ABG -8.6 mEq/L (-9-1.8); HCO3 ABG 17 mmol/L (19-24); Oxygen Saturation ABG 94.4 % (90-95); PCO2 ABG 34 mmHg (35-46); PO2 ABG 134 mm/Hg (80-95); pH ABG 7.31 (7.35-7.45)
--- NOTE | 2018-12-20 16:37 | Nephrology Consultation ---
Date of Consultation December 20, 2018 Assessment & Plan (1) ADAM (acute kidney injury): (2) Renal mass, right: Baseline creatinine 1.25 milligram/deciliter. Etiology of ADAM is unclear. Volume status and electrolytes are appropriate. Hyponatremia is hypervolemic. AGMA is likely associated with renal insufficiency. Marcel has notable 3rd spacing of fluid associated with hypoalbuminemia and immobility. IV saline bolus provided in the ED but additional IV fluids have been held at this time. Marcel is not in clinically decompensated CHF at this time. He is also not clinically hypovolemic. Thankfully, there is no emergent indication for dialysis. The patient does not endorse significant uremic symptoms. If emergent hemodialysis were to become indicated at this time, this would require transfer to a facility that can accommodate. However, he also expressed indecision regarding whether he would want dialysis if indicated. Given his morbid obesity and other medical comorbidities, I would expect that Marcel would require transfer to an LTACH facility to provide the level of care necessary to maintain chronic intermittent hemodialysis out of the hospital. The patient and his both expressed understanding. Working diagnosis at this time is recurrent ATN. Davey is draining grossly bloody urine and close attention will be necessary to assure adequate continued drainage. CBI has been deferred for now but I would strongly consider starting irrigation for any clotting or persistent bleeding. To better evaluate the source of bleed, which given the findings must be lower urinary, a CT scan has been requested. I&O's will be documented accurately. Hematuria is associated with supratherapeutic INR and is presumably responsible for acute blood loss anemia requiring transfusion support. Vitamin K was provided in the ER. Urine studies are reflective of gross hematuria. I would consider hemorrhagic cystitis associated with recurrent or invasive urinary tract infection. The urinary catheter will require changing. Thankfully, the patient does not appear septic at this time. Urology consultation will be necessary to complete his evaluation. A follow up abdominal and pelvis CT scan has been requested at this time regarding gross hematuria and ADAM. Metabolic profile will be repeated along with H/H post transfusion. (3) Supratherapeutic INR: (4) Atrial fibrillation and flutter: (5) Hyponatremia: History of Present Illness Reason for Consultation: Acute renal insufficiency Requesting Physician: Margaret Garland DO Attending Physician: Margaret Garland DO History of Present Illness Mr. Marcel Gusman is a 63-year-old male with a complex medical history who presented to [facility] ER today for evaluation of gross hematuria in decreased oral intake. Marcel is a [facility]. He has chronically been bedbound for the past 2 years. Medical history is notable for morbid obesity with a BMI of greater than 60, chronic debility, tracheostomy with chronic supplemental oxygen use, obesity hypoventilation syndrome, atrial fibrillation, history of DVT, chronic congestive heart failure with left ventricular ejection fraction of 40 percent, history of tachy-gian syndrome status post pacemaker placement in 2016, hypothyroidism, hypertension, lymphedema, and multiple recurrent invasive strep B infections. The patient was admitted amount [facility] from November 28 to with septic shock secondary to Pseudomonas pneumonia as well as ESBL Klebsiella and Proteus urinary tract infection. Treatment included Ceftolozane Tazobactam. Hospital course was complicated by acute kidney injury consistent with ATN. Serum creatinine improved to 1.25 milligrams/deciliter at the end of November. Marcel has not had outpatient nephrology follow up. Dr. Ivory provided evaluation during his recent hospitalization. Laboratory studies on admission were notable for serum creatinine of 3.1 milligram/deciliter with a BUN of 118. Serum sodium 130 millimole per liter, bicarbonate 20 milliequivalents per deciliter. Hemoglobin was 7.1; this had been 9.1 on December 08. INR was elevated at 10. Patient was given vitamin K in the emergency department. 1 unit packed red cells have been typed and crossed for transfusion. Chest x-ray is complicated by positioning and habitus. The study demonstrates mild pulmonary vascular congestion. Marcel has been placed on high flow oxygen via his trach collar. He is saturating comfortably and breathing comfortably at this time. At the time of my evaluation, the patient was resting comfortably in bed with his at the bedside. He had no acute complaints. He denies any fevers or chills. He denies any discomfort. Davey continues to be during gross hematuria with clots. Patient believes that the last times Davey catheter was changed was on return [facility] last following his recent hospitalization. Is breathing comfortably. Abdominal CT scan demonstrated a 3 centimeter complex cyst involving the right knee. This this has been present and unchanged since 2016. Calculus is noted in the renal pelvis. Multiple abdominal fluid collections are noted. Allergies Allergy/AdvReac Type Severity Reaction Status Date / Time cefepime Allergy Intermediate RASH Verified 11/29/18 10:01 latex Allergy Intermediate DERMITITIS Verified 11/29/18 10:01 aztreonam Allergy Mild RASH Verified 11/29/18 10:01 Home Medications Home Medications Medication Instructions Recorded Confirmed Type Calmoseptine 1 applic TOPICAL Q6 PRN 12/30/17 12/20/18 History Fleet Enema 118 ml FL Q24W PRN 12/30/17 12/20/18 History acetaminophen 650 mg PO Q6 PRN 12/30/17 12/20/18 History bisacodyl 10 mg FL Q24W PRN 12/30/17 12/20/18 History chlorhexidine gluconate 15 ml PO BID 12/30/17 12/20/18 History ferrous sulfate 325 mg PO QAM 12/30/17 12/20/18 History magnesium hydroxide [Milk of 30 ml PO HS PRN 12/30/17 12/20/18 History Magnesia] nystatin 1 applic TOPICAL DAILY 12/30/17 12/20/18 History pantoprazole 40 mg PO QAM 12/30/17 12/20/18 History simvastatin 10 mg PO QAM 12/30/17 12/20/18 History aspirin 81 mg PO QAM 08/25/18 12/20/18 History levothyroxine 100 mcg PO QAM 11/29/18 12/20/18 History furosemide 40 mg PO BID #0 tab 12/08/18 12/20/18 Rx ipratropium-albuterol 3 ml NEB QID #1 box 12/08/18 12/20/18 Rx warfarin [Coumadin] 2.5 mg PO DAILY@1600 #30 tab 12/08/18 12/20/18 Rx Probiotic 1 cap PO BID 12/20/18 12/20/18 History amoxicillin 500 mg PO TID PRN 12/20/18 12/20/18 History ascorbic acid (vitamin C) 500 mg PO BID 12/20/18 12/20/18 History guaifenesin 1,200 mg PO BID 12/20/18 12/20/18 History metoprolol tartrate 25 mg PO QAM 12/20/18 12/20/18 History multivitamin with minerals 1 tab PO QAM 12/20/18 12/20/18 History [Multiple Vitamin-Minerals] sertraline 100 mg PO QAM 12/20/18 12/20/18 History Patient History Medical History Hyponatremia Gait disorder History of group B Streptococcus (GBS) infection Acute respiratory failure with hypoxia Pneumonia (Acute) Acute renal failure (Acute) Heart failure, systolic, due to idiopathic cardiomyopathy (Chronic) "echo 12/01/15 - EF 35-39%, abnormal diastolic dysfunction" KEARA (obstructive sleep apnea) (Chronic) Venous insufficiency (Chronic) Hx MRSA infection (Chronic) "02/2016 in sputum" Obesity hypoventilation syndrome Atrial fibrillation and flutter (Chronic) Pacemaker (Acute) 2011 - Tracheostomy tube present (Acute) 2015 - 05/13 obesity hypoventilation syndrome Ventral hernia (Acute) Anemia Asthma Atrial fibrillation on warfarin BPH (benign prostatic hyperplasia) 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 catheter Bacteremia due to group B Streptococcus 09/2017 - requiring indefinite oral suppressive antibiotic therapy Cardiomyopathy Chronic edema BLLE Chronic indwelling Davey catheter Chronic respiratory failure Chronic venous stasis Congestive heart failure Generalized weakness History of DVT (deep vein thrombosis) Hyperlipidemia Indwelling Davey catheter present Lymphedema Major depressive disorder Morbid obesity Obesity hypoventilation syndrome On home oxygen therapy Recurrent UTI Sleep apnea Surgical History Status post placement of cardiac pacemaker H/O tracheostomy (Chronic) History of bronchoscopy w/ trach change 01/2018 [facility] History of cholecystectomy History of hernia repair Family History Other No significant family history Social History Preferred Language: Zambian Communication Ability: Impaired 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 Financial Required: No Beliefs That Will Affect Care: None Current Living Situation: Custodial Current Living Situation Comment: resident at [facility] Other Information That Helps Us Care for You: No Feels Safe at Home: Yes Safety Concerns: Feels Safe At This Time Smoking Status: Never smoker Hx Alcohol Use: No Hx Substance Use: No Review of Systems Review of Systems: All systems reviewed & are unremarkable except as noted in HPI & below Physical Exam Constitutional: + morbidly obese and + edematous; no acute distress Eyes: no scleral abnormality and no corneal abnormality ENMT: Mouth: no oral mucosal abnormality and oral mucous membranes not dry Neck: trachea midline and + tracheostomy present Respiratory: normal respiratory effort; no respiratory distress and not tachypneic Auscultation: lungs clear to auscultation bilaterally Cardiovascular: Heart Sounds: normal S1 and normal S2 Vessels: no JVD Extremities: + edema Gastrointestinal (Abdomen): Inspection/Auscultation: + abdomen distended and + abdominal edema Percussion/Palpation: abdomen nontender and no guarding Musculoskeletal: Extremities: no cyanosis and no clubbing Skin: normal turgor and + dry skin Neurologic: Motor/Sensory: no tremor and no asterixis Results & Data Vital Signs (Past 12 Hours) Vital Signs Temp Pulse Pulse Resp BP BP Pulse Ox 12/20/18 15:45 62 18 98 12/20/18 15:00 36.7 C 78 20 125/73 97 12/20/18 13:07 83 20 98 12/20/18 12:30 85 19 120/59 L 91 12/20/18 12:00 84 21 12/20/18 11:40 37.1 C 82 19 98/47 L 96 12/20/18 11:30 77 22 102/46 L 12/20/18 11:23 82 17 12/20/18 11:20 81 23 98/47 L Laboratory Results Laboratory Results - last 24 hr 12/20/18 12/20/18 12/20/18 12:06 12:06 12:06 WBC 11.22 H RBC 2.85 L Hgb 7.2 L Hct 22.7 L MCV 79.6 L MCH 25.3 MCHC 31.7 L RDW Std Deviation 53.3 H RDW Coeff of Lexy 18.1 H Plt Count 391 MPV 8.1 Immature Gran % (Auto) 1.0 Neut % (Auto) 84.4 Lymph % (Auto) 5.9 [place] % (Auto) 7.4 Eos % (Auto) 1.1 Baso % (Auto) 0.2 Immature Gran # (Auto) 0.11 H Neut # (Auto) 9.48 H Lymph # (Auto) 0.66 L [place] # (Auto) 0.83 H Eos # (Auto) 0.12 Baso # (Auto) 0.02 Hypochromasia Present PT > 90.0 H INR 10.4 H* ABG pH ABG pCO2 ABG pO2 ABG HCO3 ABG O2 Saturation ABG Base Excess [place] Test Barometric Pressure Oxygen Given Sodium 131 L Potassium 4.2 Chloride 96 L Carbon Dioxide 19 L Anion Gap 16.0 H BUN 128 H Creatinine 8.24 H* Est Cr Clr Drug Dosing 14.7 Est GFR ( Amer) 7.3 Est GFR (Non-Af Amer) 6.3 BUN/Creatinine Ratio 15.5 Glucose 95 Lactate Calcium 8.1 L Magnesium 2.5 H Total Bilirubin 0.9 AST 21 ALT 18 Alkaline Phosphatase 88 Troponin I < 0.015 Total Protein 7.8 Albumin 1.7 L Globulin 6.1 H Albumin/Globulin Ratio 0.3 L TSH 3.480 Urine Color Urine Appearance Urine pH Ur Specific [place] Urine Protein Urine Glucose (UA) Urine Ketones Urine Blood Urine Nitrite Urine Bilirubin Urine Urobilinogen Ur Leukocyte Esterase Ur Random Creatinine Ur Random Sodium Ur Random Urea Nitrogn Nasal Screen MRSA (PCR) Blood Type Antibody Screen Crossmatch 12/20/18 12/20/18 12/20/18 12:11 14:40 15:40 WBC RBC Hgb Hct MCV MCH MCHC RDW Std Deviation RDW Coeff of Lexy Plt Count MPV Immature Gran % (Auto) Neut % (Auto) Lymph % (Auto) [place] % (Auto) Eos % (Auto) Baso % (Auto) Immature Gran # (Auto) Neut # (Auto) Lymph # (Auto) [place] # (Auto) Eos # (Auto) Baso # (Auto) Hypochromasia PT INR ABG pH ABG pCO2 ABG pO2 ABG HCO3 ABG O2 Saturation ABG Base Excess [place] Test Barometric Pressure Oxygen Given Sodium Potassium Chloride Carbon Dioxide Anion Gap BUN Creatinine Est Cr Clr Drug Dosing Est GFR ( Amer) Est GFR (Non-Af Amer) BUN/Creatinine Ratio Glucose Lactate 0.6 Calcium Magnesium Total Bilirubin AST ALT Alkaline Phosphatase Troponin I Total Protein Albumin Globulin Albumin/Globulin Ratio TSH Urine Color Urine Appearance Urine pH Ur Specific [place] Urine Protein Urine Glucose (UA) Urine Ketones Urine Blood Urine Nitrite Urine Bilirubin Urine Urobilinogen Ur Leukocyte Esterase Ur Random Creatinine Ur Random Sodium Ur Random Urea Nitrogn Nasal Screen MRSA (PCR) Negative Blood Type O Positive Antibody Screen NEGATIVE Crossmatch See Detail 12/20/18 12/20/18 12/20/18 15:40 16:30 16:30 WBC RBC Hgb Hct MCV MCH MCHC RDW Std Deviation RDW Coeff of Lexy Plt Count MPV Immature Gran % (Auto) Neut % (Auto) Lymph % (Auto) [place] % (Auto) Eos % (Auto) Baso % (Auto) Immature Gran # (Auto) Neut # (Auto) Lymph # (Auto) [place] # (Auto) Eos # (Auto) Baso # (Auto) Hypochromasia PT INR ABG pH 7.31 L ABG pCO2 34 L ABG pO2 134 H ABG HCO3 17 L ABG O2 Saturation 94.4 ABG Base Excess -8.6 [place] Test Pos Barometric Pressure 734.4 Oxygen Given ROOM AIR Sodium Potassium Chloride Carbon Dioxide Anion Gap BUN Creatinine Est Cr Clr Drug Dosing Est GFR ( Amer) Est GFR (Non-Af Amer) BUN/Creatinine Ratio Glucose Lactate Calcium Magnesium Total Bilirubin AST ALT Alkaline Phosphatase Troponin I Total Protein Albumin Globulin Albumin/Globulin Ratio TSH Urine Color Pending Urine Appearance Pending Urine pH Pending Ur Specific [place] Pending Urine Protein Pending Urine Glucose (UA) Pending Urine Ketones Pending Urine Blood Pending Urine Nitrite Pending Urine Bilirubin Pending Urine Urobilinogen Pending Ur Leukocyte Esterase Pending Ur Random Creatinine Pending Ur Random Sodium Pending Ur Random Urea Nitrogn Pending Nasal Screen MRSA (PCR) Blood Type Antibody Screen Crossmatch PG Care Time/CCT Total # of Minutes Spent Total Time Spent with Patient: Total time spent is greater than 50% in coordination of care (as documented) at patient's floor/unit and/or counseling patient:
--- NOTE | 2018-12-20 17:00 | Emergency Department Note ---
Entered by Alli Retana acting as a scribe for History of Present Illness General Chief complaint: Abnormal Labs/Diagnostic Testing Time Seen by Provider: 12/20/18 11:07 Source: patient and EMS History of Present Illness Provider complaint: Hematuria Onset (ago): day(s) 2 Location: genitals Pain Consistency: + constant and + other (Worsening) Relieved By: + none Exacerbated By: + none Associated symptoms: no chest pain, no fever/chills, no headaches, no nausea/vomiting and no shortness of breath The patient is a 63 year old male w/ PMHx of DVT, CHF, Tachy-Jeremiah syndrome, S/P pacer, Anemia, Asthma, HLD, and PNA who presents to the ED w/ CC of worsening hematuria that started about 3 days ago, per EMS. The patient states that he always has blood in his Davey catheter but lately he has noticed more. The patient also has blood noted around his penis which he notes is abnormal for him. The patient also has abnormal labs done recently that showed a supratherapeutic INR. The patient wears 4L of oxygen at 35% FIO2 at baseline. The patient denies any new headaches, chest pain, SOB, nausea, vomiting, diarrhea or abdominal pain. The patient does have a trach in place due to res piratory failure. The patient was just hospitalized at the end of November for pneumonia and a UTI. Given his medical history he is on Coumadin. Home Medications Home Medications Medication Instructions Recorded Confirmed Type Calmoseptine 1 applic TOPICAL Q6 PRN 12/30/17 12/20/18 History Fleet Enema 118 ml WI Q24W PRN 12/30/17 12/20/18 History acetaminophen 650 mg PO Q6 PRN 12/30/17 12/20/18 History bisacodyl 10 mg WI Q24W PRN 12/30/17 12/20/18 History chlorhexidine gluconate 15 ml PO BID 12/30/17 12/20/18 History ferrous sulfate 325 mg PO QAM 12/30/17 12/20/18 History magnesium hydroxide [Milk of 30 ml PO HS PRN 12/30/17 12/20/18 History Magnesia] nystatin 1 applic TOPICAL DAILY 12/30/17 12/20/18 History pantoprazole 40 mg PO QAM 12/30/17 12/20/18 History simvastatin 10 mg PO QAM 12/30/17 12/20/18 History aspirin 81 mg PO QAM 08/25/18 12/20/18 History levothyroxine 100 mcg PO QAM 11/29/18 12/20/18 History furosemide 40 mg PO BID #0 tab 12/08/18 12/20/18 Rx ipratropium-albuterol 3 ml NEB QID #1 box 12/08/18 12/20/18 Rx warfarin [Coumadin] 2.5 mg PO DAILY@1600 #30 tab 12/08/18 12/20/18 Rx Probiotic 1 cap PO BID 12/20/18 12/20/18 History amoxicillin 500 mg PO TID PRN 12/20/18 12/20/18 History ascorbic acid (vitamin C) 500 mg PO BID 12/20/18 12/20/18 History guaifenesin 1,200 mg PO BID 12/20/18 12/20/18 History metoprolol tartrate 25 mg PO QAM 12/20/18 12/20/18 History multivitamin with minerals 1 tab PO QAM 12/20/18 12/20/18 History [Multiple Vitamin-Minerals] sertraline 100 mg PO QAM 12/20/18 12/20/18 History Allergies Allergy/AdvReac Type Severity Reaction Status Date / Time cefepime Allergy Intermediate RASH Verified 11/29/18 10:01 latex Allergy Intermediate DERMITITIS Verified 11/29/18 10:01 aztreonam Allergy Mild RASH Verified 11/29/18 10:01 Past Med/Surg History Medical History Hyponatremia Gait disorder History of group B Streptococcus (GBS) infection Acute respiratory failure with hypoxia Pneumonia (Acute) Acute renal failure (Acute) Heart failure, systolic, due to idiopathic cardiomyopathy (Chronic) "echo 12/01/15 - EF 35-39%, abnormal diastolic dysfunction" KEARA (obstructive sleep apnea) (Chronic) Venous insufficiency (Chronic) Hx MRSA infection (Chronic) "02/2016 in sputum" Obesity hypoventilation syndrome Atrial fibrillation and flutter (Chronic) Pacemaker (Acute) 2011 - SSS Tracheostomy tube present (Acute) 2015 - 05/13 obesity hypoventilation syndrome Ventral hernia (Acute) Anemia Asthma Atrial fibrillation on warfarin BPH (benign prostatic hyperplasia) 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 catheter Bacteremia due to group B Streptococcus 09/2017 - requiring indefinite oral suppressive antibiotic therapy Cardiomyopathy Chronic edema BLLE Chronic indwelling Davey catheter Chronic respiratory failure Chronic venous stasis Congestive heart failure Generalized weakness History of DVT (deep vein thrombosis) Hyperlipidemia Indwelling Davey catheter present Lymphedema Major depressive disorder Morbid obesity Obesity hypoventilation syndrome On home oxygen therapy Recurrent UTI Sleep apnea Surgical History Status post placement of cardiac pacemaker H/O tracheostomy (Chronic) History of bronchoscopy w/ trach change 01/2018 [facility] History of cholecystectomy History of hernia repair Family History Other No significant family history Social History Preferred Language: Cambodian Communication Ability: Impaired Senior Living Sales Counselor Required: No Beliefs That Will Affect Care: None Current Living Situation: Assisted Current Living Situation Comment: [facility] Other Information That Helps Us Care for You: No Feels Safe at Home: Yes Safety Concerns: Feels Safe At This Time Smoking Status: Never smoker Hx Alcohol Use: No Hx Substance Use: No Review of Systems See HPI for pertinent positives & negatives. and A total of 10 systems reviewed and were otherwise negative Physical Exam Vital Signs Vital Signs - 24 hr 12/20/18 11:20 12/20/18 11:23 12/20/18 11:30 Temperature Temperature Source Sepsis Recent Fever Within 48 Hours Sepsis New/Unexplained Change in Mental Status Sepsis Action Taken by Nursing Pulse Rate 81 82 77 Pulse Rate from SpO2 Sensor 81 79 76 Respiratory Rate 23 17 22 Respiratory Effort / Characteristics Respiratory Depth Respiratory Pattern Blood Pressure 98/47 L 102/46 L Blood Pressure Mean 64 64 Pulse Oximetry Oxygen Delivery Method Fraction of Inspired Oxygen SaO2/FiO2 Ratio 12/20/18 11:40 12/20/18 12:00 12/20/18 12:30 Temperature 37.1 C Temperature Source Oral Sepsis Recent Fever Within 48 Hours No Sepsis New/Unexplained Change in Mental Status No Sepsis Action Taken by Nursing No Action Required Pulse Rate 82 84 85 Pulse Rate from SpO2 Sensor 84 Respiratory Rate 19 21 19 Respiratory Effort / Characteristics Non-Labored Spontaneous Respiratory Depth Normal Respiratory Pattern Regular Blood Pressure 98/47 L 120/59 L Blood Pressure Mean 64 79 Pulse Oximetry 96 91 Oxygen Delivery Method Trach Collar Fraction of Inspired Oxygen 35 SaO2/FiO2 Ratio 274 12/20/18 13:07 Temperature Temperature Source Sepsis Recent Fever Within 48 Hours Sepsis New/Unexplained Change in Mental Status Sepsis Action Taken by Nursing Pulse Rate 83 Pulse Rate from SpO2 Sensor 83 Respiratory Rate 20 Respiratory Effort / Characteristics Respiratory Depth Respiratory Pattern Blood Pressure Blood Pressure Mean Pulse Oximetry 98 Oxygen Delivery Method Trach Collar Fraction of Inspired Oxygen SaO2/FiO2 Ratio GENERAL: Morbidly obese, sitting up in bed, alert, chronically ill-appearing EYE EXAM: normal conjunctiva. OROPHARYNX: no exudate, no erythema, lips, buccal mucosa, and tongue normal and mucous membranes are moist NECK: Trach in place on 4L of 35% FiO2 LUNGS: Clear to auscultation. Normal chest wall mechanics HEART: no murmurs, S1 normal and S2 normal ABDOMEN: abdomen soft, non-tender, normo-active bowel, sounds, no masses, no rebound or guarding. BACK: Back is symmetrical on inspection and there is no deformity, no midline tenderness, no CVA tenderness. : Davey in place with blood leaking around and within the catheter. SKIN: no rashes and no bruising UPPER EXTREMITIES: upper extremities are grossly normal. LOWER EXTREMITIES: No pitting edema. NEURO EXAM: Awake alert following commands moving all extremities nonfocal Course ED COURSE: Vital signs were reviewed and showed hypotension The patients medical record was reviewed The above diagnostic studies were performed and reviewed. ED treatments and interventions as stated above. 1112: The patient was evaluated in room C10. A complete history and physical examination was performed. 1250: I spoke to Dr. Dada Zamora [facility] Hospitalist about the patient's case. She will be accepting the patient for further evaluation. 1255: Upon reevaluation, the patient is resting in bed. I discussed my findings with the patient and he understands and agrees with the treatment plan. Based on the patients age, coexisting illnesses, exam and lab findings the decision to treat as an inpatient was made. The patient remained stable while under my care. The patient will be evaluated for further management. Consultations Consultation #1: I spoke to Dr. Dada Zamora [facility] Hospitalist about the patient's case. She will be accepting the patient for further evaluation. Time: 12:50 Administered Medications Albuterol (Duoneb) 3 ml NEB QIDR MI Stop: 01/19/19 14:59 Last Admin: 12/20/18 15:38 Dose: 3 ml Documented by: [id number] Discontinued Medications Sodium Chloride (Nss 1000ml) 1,000 mls @ 999 mls/hr IV .Q1H1M MI Stop: 12/20/18 12:30 Last Infusion: 12/20/18 13:29 Dose: 0 mls/hr Documented by: [id number] Admin: 12/20/18 12:28 Dose: 999 mls/hr Documented by: [id number] Sodium Chloride (Nss 1000ml) 1,000 mls @ 999 mls/hr IV .Q1H1M ONE Stop: 12/20/18 13:38 Last Admin: 12/20/18 16:20 Dose: Not Given Documented by: [id number] Phytonadione 10 mg/ Sodium (Chloride) 51 mls @ 102 mls/hr IV ONE ONE Stop: 12/20/18 13:12 Last Infusion: 12/20/18 14:05 Dose: 0 mls/hr Documented by: [id number] Admin: 12/20/18 13:22 Dose: 102 mls/hr Documented by: [id number] Medical Decision Making Differential Diagnosis Differential Diagnosis includes but is not limited to dehydration, stroke, anemia, hypoglycemia, hyponatremia, hypernatremia, urinary tract infection, pneumonia, bronchitis, sepsis, gastroenteritis, additional abdominal pathology, metabolic abnormalities and infections. Medical Records Attestation: I reviewed the patient's medical records. Home Medications Current Medication List: was personally reviewed by me Laboratory Data Attestation: I reviewed the patient's lab results. Result diagrams: 12/20/18 12:06 12/20/18 12:06 Lab Results 12/20/18 12/20/18 12/20/18 Range/Units 12:06 12:06 12:06 WBC 11.22 H (4.8-10.8) K/uL RBC 2.85 L (4.7-6.1) M/uL Hgb 7.2 L (14.0-18.0) g/dL Hct 22.7 L (42-52) % MCV 79.6 L (80-100) fL MCH 25.3 (25-34) pg MCHC 31.7 L (32-36) g/dL RDW Std Deviation 53.3 H (36.4-46.3) fL RDW Coeff of Lexy 18.1 H (11.5-14.5) % Plt Count 391 (130-400) K/uL MPV 8.1 (7.4-10.4) fL Immature Gran % (Auto) 1.0 % Neut % (Auto) 84.4 % Lymph % (Auto) 5.9 % Pershing % (Auto) 7.4 % Eos % (Auto) 1.1 % Baso % (Auto) 0.2 % Immature Gran # (Auto) 0.11 H (0.00-0.02) K/uL Neut # (Auto) 9.48 H (1.4-6.5) K/uL Lymph # (Auto) 0.66 L (1.2-3.4) K/uL Pershing # (Auto) 0.83 H (0.11-0.59) K/uL Eos # (Auto) 0.12 (0-0.5) K/uL Baso # (Auto) 0.02 (0-0.2) K/uL Hypochromasia Present PT > 90.0 H (9.0-12.0) Seconds INR 10.4 H* (0.9-1.1) Sodium 131 L (136-145) mmol/L Potassium 4.2 (3.5-5.1) mmol/L Chloride 96 L (98-107) mmol/L Carbon Dioxide 19 L (21-32) mmol/L Anion Gap 16.0 H (3-11) BUN 128 H (7-18) mg/dl Creatinine 8.24 H* (0.6-1.4) mg/dl Est Cr Clr Drug Dosing 14.7 ml/min Est GFR ( Amer) 7.3 Est GFR (Non-Af Amer) 6.3 BUN/Creatinine Ratio 15.5 (10-20) Glucose 95 (70-99) mg/dl Calcium 8.1 L (8.5-10.1) mg/dl Magnesium 2.5 H (1.8-2.4) mg/dl Total Bilirubin 0.9 (0.2-1) mg/dl AST 21 (15-37) U/L ALT 18 (12-78) U/L Alkaline Phosphatase 88 (45-117) U/L Troponin I < 0.015 (0-0.045) ng/ml Total Protein 7.8 (6.4-8.2) gm/dl Albumin 1.7 L (3.4-5.0) gm/dl Globulin 6.1 H (2.5-4.0) gm/dl Albumin/Globulin Ratio 0.3 L (0.9-2) TSH 3.480 (0.300-4.500) uIu/ml Blood Type Antibody Screen Crossmatch 12/20/18 Range/Units 12:11 WBC (4.8-10.8) K/uL RBC (4.7-6.1) M/uL Hgb (14.0-18.0) g/dL Hct (42-52) % MCV (80-100) fL MCH (25-34) pg MCHC (32-36) g/dL RDW Std Deviation (36.4-46.3) fL RDW Coeff of Lexy (11.5-14.5) % Plt Count (130-400) K/uL MPV (7.4-10.4) fL Immature Gran % (Auto) % Neut % (Auto) % Lymph % (Auto) % Pershing % (Auto) % Eos % (Auto) % Baso % (Auto) % Immature Gran # (Auto) (0.00-0.02) K/uL Neut # (Auto) (1.4-6.5) K/uL Lymph # (Auto) (1.2-3.4) K/uL Pershing # (Auto) (0.11-0.59) K/uL Eos # (Auto) (0-0.5) K/uL Baso # (Auto) (0-0.2) K/uL Hypochromasia PT (9.0-12.0) Seconds INR (0.9-1.1) Sodium (136-145) mmol/L Potassium (3.5-5.1) mmol/L Chloride (98-107) mmol/L Carbon Dioxide (21-32) mmol/L Anion Gap (3-11) BUN (7-18) mg/dl Creatinine (0.6-1.4) mg/dl Est Cr Clr Drug Dosing ml/min Est GFR ( Amer) Est GFR (Non-Af Amer) BUN/Creatinine Ratio (10-20) Glucose (70-99) mg/dl Calcium (8.5-10.1) mg/dl Magnesium (1.8-2.4) mg/dl Total Bilirubin (0.2-1) mg/dl AST (15-37) U/L ALT (12-78) U/L Alkaline Phosphatase (45-117) U/L Troponin I (0-0.045) ng/ml Total Protein (6.4-8.2) gm/dl Albumin (3.4-5.0) gm/dl Globulin (2.5-4.0) gm/dl Albumin/Globulin Ratio (0.9-2) TSH (0.300-4.500) uIu/ml Blood Type O Positive Antibody Screen NEGATIVE Crossmatch See Detail Imaging Data Radiologist's Impression: Radiology results as stated below per my review and the radiologist's interpretation: XR chest 1V portable CLINICAL HISTORY: weakness mental status change COMPARISON STUDY: 11/30/2018 FINDINGS: Cardiomegaly. Bipolar cardiac pacemaker. Findings of developing congestive heart failure. Small right effusion. Tracheostomy tube 3 cm from the alysha. IMPRESSION: 1. Congestive heart failure. 2. Tube and line positions as noted. The above report was generated using voice recognition software. It may contain grammatical, syntax or spelling errors. Electronically signed by: Andrey Link M.D. 12/20/2018 11:57 AM ECG Data Attestation: I personally reviewed and interpreted this ECG as follows: Indication: other (Abnormal labs) Rate (beats per minute): 83 Rhythm: sinus rhythm Findings: + other (LVH), + nonspecific-ST abn (aVL) and + left axis deviation; no PVC Comparison ECG Date: from (12/02/18) Change: no significant change Blood Pressure Blood Pressure Findings: Low blood pressure Blood Pressure Disposition: further management by hospitalist ZARI Mai Patient is a morbidly obese 63-year-old male with a past medical history of A. fib on Coumadin with respiratory failure on a trach that presents the ER for hematuria and urinary catheter combination with weakness. Labs show an anemia of 7.2 down from 9. INR at 10.4. BMP with a creatinine 8.24 and a CO2 of 19. Potassium was okay at 4.2. No significant transaminitis. Troponin was unremarkable. Patient was bladder scanned per nursing and they noted no large residual. Patient was given IV fluids. Chest x-ray with volume overload. Patient was given IV vitamin K to reverse the hematuria. Patient was also typed and crossed and ordered for 1 unit PRBCs due to his anemia with hematuria. Patient was updated bedside and admitted to the hospital for further work-up. EKG had some mild changes from previous. Impression & Plan ADAM (acute kidney injury), Elevated INR, Symptomatic anemia Critical Care Time Critical Care Time: Yes Total Critical Care Time: 35 I have personally spent greater than 35 minutes of critical care time in the direct management of this patient. This includes bedside care, interpretation of diagnostic studies, and testing, discussion with consultants, patient, and family members, and other required patient management activities. This 35 minutes is in excess of all separately billable procedures. Discharge Plan Visit Data *Final* Discharge Date/Time: 12/20/18 13:36 Chief Complaint: Abnormal Labs/Diagnostic Testing ED Provider: Felipe Elam Discharge Problem: ADAM (acute kidney injury), Elevated INR, Symptomatic anemia Patient Disposition: Admitted As Inpatient Discharge Instructions Interventions: ED Discharge Assessment Last Done: 12/20/18 13:36 The scribe's documentation has been prepared under my direction and personally reviewed by me in its entirety. I confirm that the note above accurately reflects all work, treatment, procedures, and medical decision making performed by me.
[2018-12-20 17:22] LABS: Creatinine Urine Random 17.5 mg/dl
[2018-12-20 18:20] LABS: Appearance Urine Turbid (Clear); Color Urine Red; Sulfosalicylic Acid Urine Positive (Negative)
[2018-12-20 18:22] LABS: Bacteria Urine 1+ (Negative); Hyaline Casts Urine 0-5 /lpf (0-5); RBC Urine >30 /hpf (0-4); WBC Urine >30 /hpf (0-5)
--- NOTE | 2018-12-20 18:44 | CT Scan Report ---
CT abd pelvis wo con CLINICAL HISTORY: 63 years-old Male presenting with ADAM, gross hematuria, abdominal abscess. TECHNIQUE: Multidetector CT of the abdomen and pelvis was performed without the use of intravenous co ntrast. IV contrast: None. One or more dose lowering techniques were used consistent with the princip les of ALARA (as low as reasonably achievable), including automatic exposure control, mA or kV adjust ment to individual patient size, and/or use of iterative reconstruction. COMPARISON: None. CT DOSE (mGy.cm): The estimated cumulative dose is 2556.93 mGy.cm. FINDINGS: Car Sweeper topogram: Unremarkable. Image quality is significantly limited by noncontrast technique, positioning of the arms across the a bdomen, and patient body habitus. This moderately limits diagnostic sensitivity the exam. Lung bases: Cardiac leads to the right atrial appendage and right ventricular apex. Coronary artery c alcification. Mild multichamber enlargement of the heart. Moderate simple appearing right pleural eff usion. Small left pleural effusion. Extensive passive atelectasis in the lower lobes greater on the r ight. Mosaic attenuation. Minimal nodular infiltrate in the lingula. Liver: Normal morphology. Normal density. Biliary: No gross biliary ductal dilatation allowing for noncontrast technique. Hyperdense material s uspected in the gallbladder lumen, possibly gallstones or sludge. Pancreas: Severe parenchymal atrophy. Spleen: Normal noncontrast appearance. Adrenal glands: Normal noncontrast appearance. Kidneys and ureters: Hyperdense exophytic lesion measuring 3 cm arising from the anterior interpolar region of the right kidney, indeterminate. Exophytic lesion arising from the lower pole of the left k idney, indeterminate. Bilateral nephrolithiasis. No hydronephrosis. Ureters are grossly nondistended. Bladder: Distended urinary bladder. Focus of intraluminal gas. Periventricular fat infiltration. Pelvic organs: Fitch catheter with balloon inflated in the bulbar urethra. The prostate is not well v isualized. Bowel: Mild stool burden throughout normal caliber colon. The appendix is atrophic and normal. No bow el obstruction. Peritoneal cavity: Multilobular fluid collection in the space of Retzius and extraperitoneal pelvis o f the right lower quadrant. This extends superiorly likely within the anterior pararenal space and ab uts the retroperitoneal portion of the rectosigmoid junction. The collection is difficult to measure due to its multiple loculations though measures up to 19 cm in maximal dimension. This may be associa howard with a prosthetic mesh along the anterior infra umbilical abdominal wall. No free intraperitoneal gas or fluid. Lymph nodes: No gross lymphadenopathy allowing for noncontrast technique. Vasculature: Atherosclerosis of the normal caliber abdominal aorta. Bilateral femoral lines may be pr esent. Abdominal wall: Mild skin thickening and mild subcutaneous edema in the pannus. Musculoskeletal: Degenerative changes of the spine. IMPRESSION: Image quality is significantly limited by noncontrast technique, positioning of the arms across the a bdomen, and patient body habitus. This moderately limits diagnostic sensitivity the exam. 1. Significantly increased size of the multilobular extraperitoneal pelvic fluid collection, which m ay be associated with the urinary bladder or a prosthetic mesh. This appears significantly complex. I nternal components may be better evaluated with ultrasound. Sterility of this collection cannot be co nfirmed. 2. Perivesicular fat infiltration. Correlate with urinalysis to assess for infectious cystitis. 3. Distended urinary bladder. Recommend decompression. Malpositioning of the Fitch catheter, which i s inflated within the bulbar urethra. 4. Indeterminate right renal lesion as mentioned on prior exam. 5. Bilateral nephrolithiasis. 6. Bilateral pleural effusions greater on the right with possible congestive changes in the lung bas es. 7. Additional findings as above. The report will be called/faxed according to standard departmental protocol. Electronically signed by: Gilberto Ashraf M.D. 12/20/2018 6:42 PM
[2018-12-20 20:29] LABS: Hematocrit (blood only) 20.8 % (42-52); Hemoglobin 6.6 g/dL (14.0-18.0); Mean Corpuscular Hemoglobin 25.4 pg (25-34); Mean Corpuscular Hgb Conc 31.7 g/dL (32-36); Mean Platelet Volume 7.7 fL (7.4-10.4); Platelet Count 331 K/uL (130-400); RDW Coefficient of Variation 18.1 % (11.5-14.5); RDW Standard Deviation 52.6 fL (36.4-46.3); White Blood Count 12.39 K/uL (4.8-10.8)
[2018-12-20 20:30] LABS: INR 2.2 (0.9-1.1); Prothrombin Time 21.6 Seconds (9.0-12.0)
[2018-12-20 20:46] LABS: Basophils # (auto) 0.03 K/uL (0-0.2); Basophils % (auto) 0.2 %; Eosinophils # (auto) 0.13 K/uL (0-0.5); Hypochromasia Present; Immature Granulocytes # (auto) 0.12 K/uL (0.00-0.02); Lymphocytes # (auto) 0.65 K/uL (1.2-3.4); Lymphocytes % (auto) 5.2 %; Monocytes # (auto) 0.84 K/uL (0.11-0.59); Monocytes % (auto) 6.8 %; Neutrophils # (auto) 10.62 K/uL (1.4-6.5); Neutrophils % (auto) 85.8 %
[2018-12-20 20:47] LABS: BUN Creatinine Ratio 15.7 (10-20); Creatinine Clr Calc Pharmacy 14.7 ml/min; Est GFR (African American) 7.1; Est GFR (Non-African American) 6.1; Potassium 4.1 mmol/L (3.5-5.1)
--- NOTE | 2018-12-20 20:56 | Procedure Note ---
Procedure Note Date of Service December 20, 2018 Called to see patient for malpositioned davey, gross hematuria, acute renal failure with Cr of 8, INR of 11. CT scan imaging reviewed. See recent notes on prior admission. Davey removed with expected urethral bleeding from bulbar urethral inflation of previous balloon. 22 fr coude placed with 15 cc H2O in balloon, 3 L purulent urine with old blood drained, culture collected. Flushed with 2500 cc saline with clearing to light pink, few small clots. Hand irrigate davey Q2 hours, expect some bladder oozing from distension injury. Would normalize INR. Seen recurrent pelvic fluid collections consider CT cystogram tomorrow. Broad spectrum antibiotic coverage suggested for likely UTI, purulent urine. Maintain davey. Coding
[2018-12-20] MEDS ORDERED: cefTRIAXone SODIUM 2,000 MG in DEXTROSE 5% 50 ML IV SCH (21:00)
[2018-12-20] MEDS: MENTHOL-ZINC OXIDE 360 APPLN/120 GM TUBE EXT PRN (22:04)
[2018-12-20] MEDS: CHLORHEXIDINE GLUCONATE 0.12% 480 ML MT SCH (22:04)
[2018-12-20] MEDS: NYSTATIN POWDER 15GM BTL EXT SCH (22:04)
[2018-12-20] MEDS: guaiFENesin 600 MG TABCR PO SCH (22:06)
--- NOTE | 2018-12-20 22:19 | Procedure Note ---
Procedure Note Date of Service December 20, 2018 Procedure: All Terrain Vehicle Technician Indwelling Peripherally Inserted IV Catheter Placement Attending: Dr. Kendrick APC: Silvio Spivey PA-C Indication: Need for IV Access, Poor Vascular Access Anesthesia: None Verbal consent was obtained from patient prior to performing the procedure. A time-out was completed verifying correct patient, procedure, site, positioning, and implant(s) or special equipment if applicable. Utilizing bedside ultrasound, vascularity of the RIGHT upper extremity was assessed. Vessel size was noted for appropriate catheter selection and skin was marked with gentle pressure. Patients RIGHT upper extremity was prepped and draped in the usual sterile fashion utilizing chlorhexidine. Ultrasound guidance was used to aid needle placement. A 20 g Endurance Catheter was introduced into the RIGHT Brachial vein under direct ultrasound guidance. Guide wire was easily deployed without resistance. Catheter was threaded over the guide wire without resistance and the entire apparatus was removed intact. Good venous blood return was noted in the catheter. The IV catheter was easily flushed with sterile saline flush. Sterile clave was attached to the end of the catheter and good blood return was again noted. Tourniquet was released. StatLock device and sterile dressing were applied. The patient tolerated the procedure well. Blood Loss: Minimal Complications: None Procedural Ultrasound Guidance: Procedure Date: 12/20/2018 Indication: Poor Vascular Access Attending: Dr. Kendrick APC: Silvio Spivey PA-C Artery/Veins Identified: YES Access confirmed in Vein with ultrasound: YES Complications: NONE Patient tolerated procedure: WELL Coding CPT Codes Tubes, Drains, and Vasc Access - Tubes, Drains, and Vasc Access: Venipuncture, Age 4/>Req physician skill, (sep proc), Dx/Tx (not rout) ([id number])
[2018-12-21] MEDS: LEVOTHYROXINE SODIUM 100 MCG TABLET PO SCH (05:21)
[2018-12-21] MEDS: MENTHOL-ZINC OXIDE 360 APPLN/120 GM TUBE EXT PRN (05:21)
[2018-12-21 06:34] LABS: Hematocrit (blood only) 24.7 % (42-52); Mean Corpuscular Hemoglobin 26.7 pg (25-34); Mean Corpuscular Hgb Conc 32.4 g/dL (32-36); Mean Corpuscular Volume 82.3 fL (80-100); Platelet Count 307 K/uL (130-400); RDW Coefficient of Variation 17.6 % (11.5-14.5)
[2018-12-21] MEDS: ALBUT/IPRATROP 3MG/0.5MG NEB 3 ML VIAL NEB SCH ×4 (07:20→19:33)
[2018-12-21 07:30] LABS: Basophils # (auto) 0.02 K/uL (0-0.2); Basophils % (auto) 0.2 %; Eosinophils # (auto) 0.27 K/uL (0-0.5); Eosinophils % (auto) 2.7 %; Immature Granulocytes # (auto) 0.13 K/uL (0.00-0.02); Immature Granulocytes % (auto) 1.3 %; Lymphocytes # (auto) 0.72 K/uL (1.2-3.4); Lymphocytes % (auto) 7.2 %; Monocytes # (auto) 0.87 K/uL (0.11-0.59); Monocytes % (auto) 8.7 %; Neutrophils # (auto) 7.99 K/uL (1.4-6.5); Neutrophils % (auto) 79.9 %
[2018-12-21] MEDS: FERROUS SULFATE 325 MG TAB PO SCH (07:47)
[2018-12-21] MEDS: guaiFENesin 600 MG TABCR PO SCH ×2 (07:48→20:16)
[2018-12-21] MEDS: SIMVASTATIN 10 MG TAB PO SCH (07:48)
[2018-12-21] MEDS: SERTRALINE HCL 50 MG TABLET PO SCH (07:48)
[2018-12-21] MEDS: CHLORHEXIDINE GLUCONATE 0.12% 480 ML MT SCH ×2 (07:48→20:11)
[2018-12-21] MEDS: PANTOprazole 40 MG TAB PO SCH (07:48)
--- NOTE | 2018-12-21 08:02 | Urology Consultation ---
Date of Consultation December 21, 2018 Assessment & Plan (1) Gross hematuria: A/P 63 yo comorbid male with ARF, anemia, gross hematuria, malpositioned davey. Recurrent questions in regarding integrity of the bladder - will order CT cystogram for today to evaluate. Continue hand irrigation. I expect patient's INR and decompressed overdistended bladder as well as urethral davey trauma to be culprits. Unimproved Cr despite repositioned davey and diuresis - defer to nephrology. Monitor Hb, transfuse PRN. Culture sent yesterday, results pending. Thank you for allowing us to participate in this patient's acute care. History of Present Illness Reason for Consultation: Gross hematuria, malpositioned davey, recurrent UTI. Attending Physician: Oksana Mullins MD History of Present Illness 63 yo male, known to our service, seen on multiple prior occasions as inpatient, admitted due to gross hematuria, supratherapeutic INR of 11, acute anemia, renal failure with a Cr of 8. Admission H&P reviewed, past hospital and notes reviewed, seen last night acutely for davey manipulation as documented. Patient improving, responding to 2 U PRBC and FFP, labs as noted below. Cr unimproved. Per nursing hematuria with small clots persists, diuresis for >5 L, ? postobstructive noted. CT images showing distended bladder and malpositioned davey noted, should be in good position currently. consulted to assist with acute care, hematuria and davey as noted above. Allergies Allergy/AdvReac Type Severity Reaction Status Date / Time cefepime Allergy Intermediate RASH Verified 11/29/18 10:01 latex Allergy Intermediate DERMITITIS Verified 11/29/18 10:01 aztreonam Allergy Mild RASH Verified 11/29/18 10:01 Home Medications Home Medications Medication Instructions Recorded Confirmed Type Calmoseptine 1 applic TOPICAL Q6 PRN 12/30/17 12/20/18 History Fleet Enema 118 ml OH Q24W PRN 12/30/17 12/20/18 History acetaminophen 650 mg PO Q6 PRN 12/30/17 12/20/18 History bisacodyl 10 mg OH Q24W PRN 12/30/17 12/20/18 History chlorhexidine gluconate 15 ml PO BID 12/30/17 12/20/18 History ferrous sulfate 325 mg PO QAM 12/30/17 12/20/18 History magnesium hydroxide [Milk of 30 ml PO HS PRN 12/30/17 12/20/18 History Magnesia] nystatin 1 applic TOPICAL DAILY 12/30/17 12/20/18 History pantoprazole 40 mg PO QAM 12/30/17 12/20/18 History simvastatin 10 mg PO QAM 12/30/17 12/20/18 History aspirin 81 mg PO QAM 08/25/18 12/20/18 History levothyroxine 100 mcg PO QAM 11/29/18 12/20/18 History furosemide 40 mg PO BID #0 tab 12/08/18 12/20/18 Rx ipratropium-albuterol 3 ml NEB QID #1 box 12/08/18 12/20/18 Rx warfarin [Coumadin] 2.5 mg PO DAILY@1600 #30 tab 12/08/18 12/20/18 Rx Probiotic 1 cap PO BID 12/20/18 12/20/18 History amoxicillin 500 mg PO TID PRN 12/20/18 12/20/18 History ascorbic acid (vitamin C) 500 mg PO BID 12/20/18 12/20/18 History guaifenesin 1,200 mg PO BID 12/20/18 12/20/18 History metoprolol tartrate 25 mg PO QAM 12/20/18 12/20/18 History multivitamin with minerals 1 tab PO QAM 12/20/18 12/20/18 History [Multiple Vitamin-Minerals] sertraline 100 mg PO QAM 12/20/18 12/20/18 History Patient History Medical History Hyponatremia Gait disorder History of group B Streptococcus (GBS) infection Acute respiratory failure with hypoxia Pneumonia (Acute) Acute renal failure (Acute) Heart failure, systolic, due to idiopathic cardiomyopathy (Chronic) "echo 12/01/15 - EF 35-39%, abnormal diastolic dysfunction" KEARA (obstructive sleep apnea) (Chronic) Venous insufficiency (Chronic) Hx MRSA infection (Chronic) "02/2016 in sputum" Obesity hypoventilation syndrome Atrial fibrillation and flutter (Chronic) Gross hematuria Pacemaker (Acute) 2011 - SSS Tracheostomy tube present (Acute) 2015 - / obesity hypoventilation syndrome Ventral hernia (Acute) Anemia Asthma Atrial fibrillation on warfarin BPH (benign prostatic hyperplasia) 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 catheter Bacteremia due to group B Streptococcus 09/2017 - requiring indefinite oral suppressive antibiotic therapy Cardiomyopathy Chronic edema BLLE Chronic indwelling Davey catheter Chronic respiratory failure Chronic venous stasis Congestive heart failure Generalized weakness History of DVT (deep vein thrombosis) Hyperlipidemia Indwelling Davey catheter present Lymphedema Major depressive disorder Morbid obesity Obesity hypoventilation syndrome On home oxygen therapy Recurrent UTI Sleep apnea Surgical History Status post placement of cardiac pacemaker H/O tracheostomy (Chronic) History of bronchoscopy w/ trach change 01/2018 [facility] History of cholecystectomy History of hernia repair Family History Other No significant family history Social History Preferred Language: Libyan Communication Ability: Impaired Financial Foundations Representative Required: No Beliefs That Will Affect Care: None Current Living Situation: Long Term Current Living Situation Comment: resident at [facility] Other Information That Helps Us Care for You: No Feels Safe at Home: Yes Safety Concerns: Feels Safe At This Time Smoking Status: Never smoker Hx Alcohol Use: No Hx Substance Use: No Review of Systems Constitutional: no fever Eyes: no diplopia Ear, Nose, Mouth, Throat: trach in place Cardiovascular: no chest pain Gastrointestinal: + bloating; no vomiting Genitourinary: + hematuria Musculoskeletal: + limited range of motion Integumentary: no acne Neurologic: + abnormal speech Hematologic / Lymphatic: + easy bleeding and + coagulopathy Allergy / Immunological: no tongue swelling Physical Exam Constitutional: + morbidly obese and + disheveled Eyes: eyes not dysmorphic ENMT: Ears: no external ear abnormality Neck: trach in place Respiratory: [place] Cardiovascular: Vessels: radial pulses present Gastrointestinal (Abdomen): Inspection/Auscultation: + significant pannus Percussion/Palpation: abdomen soft; abdomen nontender Skin: diffuse edema Neurologic: awake Genitourinary: buried phallus Lymphatic: no lymphadenopathy Results & Data Vital Signs (Past 12 Hours) Vital Signs Temp Pulse Pulse Resp BP BP Pulse Ox 12/21/18 07:57 36.4 C L 75 18 132/54 L 98 12/21/18 04:42 36.4 C L 70 20 111/51 L 97 12/21/18 04:18 36.6 C 72 20 114/57 L 96 12/21/18 02:51 36.5 C 68 18 112/56 L 12/21/18 02:21 36.6 C 72 20 94/52 L 100 12/21/18 02:06 36.6 C 72 18 99/64 L 99 12/21/18 01:50 36.5 C 75 20 114/53 L 97 12/21/18 01:43 36.6 C 75 18 120/72 94 12/21/18 01:30 36.6 C 74 20 133/80 100 12/21/18 01:00 36.5 C 67 20 107/69 96 12/21/18 00:41 75 12/21/18 00:11 36.5 C 72 18 102/52 L 100 12/20/18 23:53 36.5 C 74 18 122/69 97 12/20/18 23:25 36.8 C 75 18 130/46 L 100 12/20/18 22:50 36.8 C 75 20 101/63 100 12/20/18 22:20 36.8 C 78 18 114/66 12/20/18 22:05 36.8 C 75 16 139/73 100 12/20/18 21:58 36.8 C 80 16 113/47 L 100 Laboratory Results Laboratory Results - last 48 hr 12/20/18 12/20/18 12/20/18 12:06 12:06 12:06 WBC 11.22 H RBC 2.85 L Hgb 7.2 L Hct 22.7 L MCV 79.6 L MCH 25.3 MCHC 31.7 L RDW Std Deviation 53.3 H RDW Coeff of Lexy 18.1 H Plt Count 391 MPV 8.1 Immature Gran % (Auto) 1.0 Neut % (Auto) 84.4 Lymph % (Auto) 5.9 [place] % (Auto) 7.4 Eos % (Auto) 1.1 Baso % (Auto) 0.2 Immature Gran # (Auto) 0.11 H Neut # (Auto) 9.48 H Lymph # (Auto) 0.66 L [place] # (Auto) 0.83 H Eos # (Auto) 0.12 Baso # (Auto) 0.02 Hypochromasia Present PT > 90.0 H INR 10.4 H* ABG pH ABG pCO2 ABG pO2 ABG HCO3 ABG O2 Saturation ABG Base Excess [place] Test Barometric Pressure Oxygen Given Sodium 131 L Potassium 4.2 Chloride 96 L Carbon Dioxide 19 L Anion Gap 16.0 H BUN 128 H Creatinine 8.24 H* Est Cr Clr Drug Dosing 14.7 Est GFR ( Amer) 7.3 Est GFR (Non-Af Amer) 6.3 BUN/Creatinine Ratio 15.5 Glucose 95 Lactate Calcium 8.1 L Magnesium 2.5 H Total Bilirubin 0.9 AST 21 ALT 18 Alkaline Phosphatase 88 Troponin I < 0.015 Total Protein 7.8 Albumin 1.7 L Globulin 6.1 H Albumin/Globulin Ratio 0.3 L TSH 3.480 Urine Color Urine Appearance Urine pH Ur Specific [place] Urine Protein Urine Glucose (UA) Urine Ketones Urine Blood Urine Nitrite Urine Bilirubin Urine Urobilinogen Ur Leukocyte Esterase Urine RBC Urine WBC Ur Epithelial Cells Urine Bacteria Hyaline Casts Ur Random Creatinine Ur Random Sodium Ur Random Urea Nitrogn Nasal Screen MRSA (PCR) Blood Type Antibody Screen Crossmatch 12/20/18 12/20/18 12/20/18 12:11 14:40 15:40 WBC RBC Hgb Hct MCV MCH MCHC RDW Std Deviation RDW Coeff of Lexy Plt Count MPV Immature Gran % (Auto) Neut % (Auto) Lymph % (Auto) [place] % (Auto) Eos % (Auto) Baso % (Auto) Immature Gran # (Auto) Neut # (Auto) Lymph # (Auto) [place] # (Auto) Eos # (Auto) Baso # (Auto) Hypochromasia PT INR ABG pH ABG pCO2 ABG pO2 ABG HCO3 ABG O2 Saturation ABG Base Excess [place] Test Barometric Pressure Oxygen Given Sodium Potassium Chloride Carbon Dioxide Anion Gap BUN Creatinine Est Cr Clr Drug Dosing Est GFR ( Amer) Est GFR (Non-Af Amer) BUN/Creatinine Ratio Glucose Lactate 0.6 Calcium Magnesium Total Bilirubin AST ALT Alkaline Phosphatase Troponin I Total Protein Albumin Globulin Albumin/Globulin Ratio TSH Urine Color Urine Appearance Urine pH Ur Specific [place] Urine Protein Urine Glucose (UA) Urine Ketones Urine Blood Urine Nitrite Urine Bilirubin Urine Urobilinogen Ur Leukocyte Esterase Urine RBC Urine WBC Ur Epithelial Cells Urine Bacteria Hyaline Casts Ur Random Creatinine Ur Random Sodium Ur Random Urea Nitrogn Nasal Screen MRSA (PCR) Negative Blood Type O Positive Antibody Screen NEGATIVE Crossmatch See Detail 12/20/18 12/20/18 12/20/18 15:40 16:30 16:30 WBC RBC Hgb Hct MCV MCH MCHC RDW Std Deviation RDW Coeff of Lexy Plt Count MPV Immature Gran % (Auto) Neut % (Auto) Lymph % (Auto) [place] % (Auto) Eos % (Auto) Baso % (Auto) Immature Gran # (Auto) Neut # (Auto) Lymph # (Auto) [place] # (Auto) Eos # (Auto) Baso # (Auto) Hypochromasia PT INR ABG pH 7.31 L ABG pCO2 34 L ABG pO2 134 H ABG HCO3 17 L ABG O2 Saturation 94.4 ABG Base Excess -8.6 [place] Test Pos Barometric Pressure 734.4 Oxygen Given ROOM AIR Sodium Potassium Chloride Carbon Dioxide Anion Gap BUN Creatinine Est Cr Clr Drug Dosing Est GFR ( Amer) Est GFR (Non-Af Amer) BUN/Creatinine Ratio Glucose Lactate Calcium Magnesium Total Bilirubin AST ALT Alkaline Phosphatase Troponin I Total Protein Albumin Globulin Albumin/Globulin Ratio TSH Urine Color Red Urine Appearance Turbid A Urine pH Ur Specific [place] Urine Protein Urine Glucose (UA) Urine Ketones Urine Blood Urine Nitrite Urine Bilirubin Urine Urobilinogen Ur Leukocyte Esterase Urine RBC >30 H Urine WBC >30 H Ur Epithelial Cells 5-10 H Urine Bacteria 1+ H Hyaline Casts 0-5 Ur Random Creatinine 17.5 Ur Random Sodium 80 Ur Random Urea Nitrogn 139 Nasal Screen MRSA (PCR) Blood Type Antibody Screen Crossmatch 12/20/18 12/20/18 12/20/18 20:11 20:11 20:11 WBC 12.39 H RBC 2.60 L Hgb 6.6 L* Hct 20.8 L* MCV 80.0 MCH 25.4 MCHC 31.7 L RDW Std Deviation 52.6 H RDW Coeff of Lexy 18.1 H Plt Count 331 MPV 7.7 Immature Gran % (Auto) 1.0 Neut % (Auto) 85.8 Lymph % (Auto) 5.2 [place] % (Auto) 6.8 Eos % (Auto) 1.0 Baso % (Auto) 0.2 Immature Gran # (Auto) 0.12 H Neut # (Auto) 10.62 H Lymph # (Auto) 0.65 L [place] # (Auto) 0.84 H Eos # (Auto) 0.13 Baso # (Auto) 0.03 Hypochromasia Present PT 21.6 H INR 2.2 H ABG pH ABG pCO2 ABG pO2 ABG HCO3 ABG O2 Saturation ABG Base Excess [place] Test Barometric Pressure Oxygen Given Sodium 132 L Potassium 4.1 Chloride 96 L Carbon Dioxide 20 L Anion Gap 16.0 H BUN 132 H Creatinine 8.44 H* Est Cr Clr Drug Dosing 14.7 Est GFR ( Amer) 7.1 Est GFR (Non-Af Amer) 6.1 BUN/Creatinine Ratio 15.7 Glucose 86 Lactate Calcium 8.0 L Magnesium Total Bilirubin AST ALT Alkaline Phosphatase Troponin I Total Protein Albumin Globulin Albumin/Globulin Ratio TSH Urine Color Urine Appearance Urine pH Ur Specific [place] Urine Protein Urine Glucose (UA) Urine Ketones Urine Blood Urine Nitrite Urine Bilirubin Urine Urobilinogen Ur Leukocyte Esterase Urine RBC Urine WBC Ur Epithelial Cells Urine Bacteria Hyaline Casts Ur Random Creatinine Ur Random Sodium Ur Random Urea Nitrogn Nasal Screen MRSA (PCR) Blood Type Antibody Screen Crossmatch 12/21/18 06:18 WBC 10.00 RBC 3.00 L Hgb 8.0 L Hct 24.7 L MCV 82.3 MCH 26.7 MCHC 32.4 RDW Std Deviation 53.0 H RDW Coeff of Lexy 17.6 H Plt Count 307 MPV 8.0 Immature Gran % (Auto) 1.3 Neut % (Auto) 79.9 Lymph % (Auto) 7.2 [place] % (Auto) 8.7 Eos % (Auto) 2.7 Baso % (Auto) 0.2 Immature Gran # (Auto) 0.13 H Neut # (Auto) 7.99 H Lymph # (Auto) 0.72 L [place] # (Auto) 0.87 H Eos # (Auto) 0.27 Baso # (Auto) 0.02 Hypochromasia PT INR ABG pH ABG pCO2 ABG pO2 ABG HCO3 ABG O2 Saturation ABG Base Excess [place] Test Barometric Pressure Oxygen Given Sodium Potassium Chloride Carbon Dioxide Anion Gap BUN Creatinine Est Cr Clr Drug Dosing Est GFR ( Amer) Est GFR (Non-Af Amer) BUN/Creatinine Ratio Glucose Lactate Calcium Magnesium Total Bilirubin AST ALT Alkaline Phosphatase Troponin I Total Protein Albumin Globulin Albumin/Globulin Ratio TSH Urine Color Urine Appearance Urine pH Ur Specific [place] Urine Protein Urine Glucose (UA) Urine Ketones Urine Blood Urine Nitrite Urine Bilirubin Urine Urobilinogen Ur Leukocyte Esterase Urine RBC Urine WBC Ur Epithelial Cells Urine Bacteria Hyaline Casts Ur Random Creatinine Ur Random Sodium Ur Random Urea Nitrogn Nasal Screen MRSA (PCR) Blood Type Antibody Screen Crossmatch PG Care Time/CCT Total # of Minutes Spent Total Time Spent with Patient: Total time spent is greater than 50% in coordination of care (as documented) at patient's floor/unit and/or counseling patient:
[2018-12-21] MEDS ORDERED: ASPIRIN 81 MG ECTAB PO SCH (09:00)
[2018-12-21 09:53] LABS: Basophils # (auto) 0.01 K/uL (0-0.2); Basophils % (auto) 0.1 %; Eosinophils # (auto) 0.27 K/uL (0-0.5); Eosinophils % (auto) 2.7 %; Hematocrit (blood only) 23.4 % (42-52); Hemoglobin 7.7 g/dL (14.0-18.0); Immature Granulocytes # (auto) 0.12 K/uL (0.00-0.02); Immature Granulocytes % (auto) 1.2 %; Lymphocytes # (auto) 0.95 K/uL (1.2-3.4); Lymphocytes % (auto) 9.4 %; Mean Corpuscular Hgb Conc 32.9 g/dL (32-36); Mean Corpuscular Volume 82.1 fL (80-100); Mean Platelet Volume 7.9 fL (7.4-10.4); Monocytes # (auto) 0.64 K/uL (0.11-0.59); Monocytes % (auto) 6.3 %; Neutrophils # (auto) 8.15 K/uL (1.4-6.5); Neutrophils % (auto) 80.3 %; Platelet Count 306 K/uL (130-400); RDW Coefficient of Variation 17.4 % (11.5-14.5); RDW Standard Deviation 52.8 fL (36.4-46.3); Red Blood Count 2.85 M/uL (4.7-6.1); White Blood Count 10.14 K/uL (4.8-10.8)
[2018-12-21] MEDS ORDERED: ERTAPENEM SODIUM 1,000 MG in SODIUM CHLORIDE 0.9% 50 ML IV SCH (10:00)
[2018-12-21 10:25] LABS: Spherocytes Occasional
--- NOTE | 2018-12-21 10:29 | Nephrology Progress Note ---
Date of Service December 21, 2018 Assessment & Plan (1) ADAM (acute kidney injury): Baseline creatinine 1.25 milligram/deciliter. Non oliguric. CT demonstrated malpositioned Fitch catheter. This has been replaced. Extraperitoneal fluid collection appears complex. Presumably associated with bladder perforation. Plan of care discussed with Dr. Hawkins this morning. CT cystogram pending. Bladder irrigation being provided. Hematuria appears to be improving. 2 u PRBC provided overnight. Hemoglobin remains 7.7. Urine output increased. CT did not demonstrate significant hydronephrosis. Clinical presentation consistent with obstructive nephropathy and ATN. IV fluid with 1/2 NS + HCO3 @ 100 ml/hr will be provided. Goal is to maintain even fluid balance. There is no emergent indication for dialysis. Volume status and electrolytes are acceptable. Repeat metabolic profile has been scheduled for this afternoon. Medications are appropriately dosed for kidney function. (2) Renal mass, right: (3) Supratherapeutic INR: (4) Atrial fibrillation and flutter: (5) Hyponatremia: Subjective Marcel was resting comfortably in bed this morning. He denies pain. No fevers or chills. Fitch exchanged and irrigated. CT cystogram pending. Hematuria improving. Review of Systems Review of Systems: All systems reviewed & are unremarkable except as noted in HPI & below Physical Exam Constitutional: + morbidly obese; no acute distress Eyes: no scleral abnormality and no corneal abnormality ENMT: Mouth: no oral mucosal abnormality and oral mucous membranes not dry Neck: trachea midline and + tracheostomy present Respiratory: normal respiratory effort; no respiratory distress and not tachypneic Auscultation: lungs clear to auscultation bilaterally Cardiovascular: Heart Sounds: normal S1 and normal S2 Vessels: no JVD Extremities: + edema Gastrointestinal (Abdomen): Inspection/Auscultation: + abdomen distended and + abdominal edema Percussion/Palpation: abdomen nontender and no guarding Musculoskeletal: Extremities: no cyanosis and no clubbing Skin: normal turgor and + dry skin Neurologic: Motor/Sensory: no tremor and no asterixis Results & Data Vital Signs (Past 12 Hours) Vital Signs Temp Pulse Pulse Resp BP BP Pulse Ox 12/21/18 09:41 72 12/21/18 07:57 36.4 C L 75 18 132/54 L 98 12/21/18 07:20 72 18 94 12/21/18 04:42 36.4 C L 70 20 111/51 L 97 12/21/18 04:18 36.6 C 72 20 114/57 L 96 12/21/18 02:51 36.5 C 68 18 112/56 L 12/21/18 02:21 36.6 C 72 20 94/52 L 100 12/21/18 02:06 36.6 C 72 18 99/64 L 99 12/21/18 01:50 36.5 C 75 20 114/53 L 97 12/21/18 01:43 36.6 C 75 18 120/72 94 12/21/18 01:30 36.6 C 74 20 133/80 100 12/21/18 01:00 36.5 C 67 20 107/69 96 12/21/18 00:41 75 12/21/18 00:11 36.5 C 72 18 102/52 L 100 12/20/18 23:53 36.5 C 74 18 122/69 97 12/20/18 23:25 36.8 C 75 18 130/46 L 100 12/20/18 22:50 36.8 C 75 20 101/63 100 Laboratory Results Laboratory Results - last 24 hr 12/20/18 12/20/18 12/20/18 12:06 12:06 12:06 WBC 11.22 H RBC 2.85 L Hgb 7.2 L Hct 22.7 L MCV 79.6 L MCH 25.3 MCHC 31.7 L RDW Std Deviation 53.3 H RDW Coeff of Lexy 18.1 H Plt Count 391 MPV 8.1 Immature Gran % (Auto) 1.0 Neut % (Auto) 84.4 Lymph % (Auto) 5.9 [place] % (Auto) 7.4 Eos % (Auto) 1.1 Baso % (Auto) 0.2 Immature Gran # (Auto) 0.11 H Neut # (Auto) 9.48 H Lymph # (Auto) 0.66 L [place] # (Auto) 0.83 H Eos # (Auto) 0.12 Baso # (Auto) 0.02 Hypochromasia Present PT > 90.0 H INR 10.4 H* ABG pH ABG pCO2 ABG pO2 ABG HCO3 ABG O2 Saturation ABG Base Excess [place] Test Barometric Pressure Oxygen Given Sodium 131 L Potassium 4.2 Chloride 96 L Carbon Dioxide 19 L Anion Gap 16.0 H BUN 128 H Creatinine 8.24 H* Est Cr Clr Drug Dosing 14.7 Est GFR ( Amer) 7.3 Est GFR (Non-Af Amer) 6.3 BUN/Creatinine Ratio 15.5 Glucose 95 Lactate Calcium 8.1 L Magnesium 2.5 H Total Bilirubin 0.9 AST 21 ALT 18 Alkaline Phosphatase 88 Troponin I < 0.015 Total Protein 7.8 Albumin 1.7 L Globulin 6.1 H Albumin/Globulin Ratio 0.3 L TSH 3.480 Urine Color Urine Appearance Urine pH Ur Specific [place] Urine Protein Urine Glucose (UA) Urine Ketones Urine Blood Urine Nitrite Urine Bilirubin Urine Urobilinogen Ur Leukocyte Esterase Urine RBC Urine WBC Ur Epithelial Cells Urine Bacteria Hyaline Casts Ur Random Creatinine Ur Random Sodium Ur Random Urea Nitrogn Nasal Screen MRSA (PCR) Blood Type Antibody Screen Crossmatch 12/20/18 12/20/18 12/20/18 12:11 14:40 15:40 WBC RBC Hgb Hct MCV MCH MCHC RDW Std Deviation RDW Coeff of Lexy Plt Count MPV Immature Gran % (Auto) Neut % (Auto) Lymph % (Auto) [place] % (Auto) Eos % (Auto) Baso % (Auto) Immature Gran # (Auto) Neut # (Auto) Lymph # (Auto) [place] # (Auto) Eos # (Auto) Baso # (Auto) Hypochromasia PT INR ABG pH ABG pCO2 ABG pO2 ABG HCO3 ABG O2 Saturation ABG Base Excess [place] Test Barometric Pressure Oxygen Given Sodium Potassium Chloride Carbon Dioxide Anion Gap BUN Creatinine Est Cr Clr Drug Dosing Est GFR ( Amer) Est GFR (Non-Af Amer) BUN/Creatinine Ratio Glucose Lactate 0.6 Calcium Magnesium Total Bilirubin AST ALT Alkaline Phosphatase Troponin I Total Protein Albumin Globulin Albumin/Globulin Ratio TSH Urine Color Urine Appearance Urine pH Ur Specific [place] Urine Protein Urine Glucose (UA) Urine Ketones Urine Blood Urine Nitrite Urine Bilirubin Urine Urobilinogen Ur Leukocyte Esterase Urine RBC Urine WBC Ur Epithelial Cells Urine Bacteria Hyaline Casts Ur Random Creatinine Ur Random Sodium Ur Random Urea Nitrogn Nasal Screen MRSA (PCR) Negative Blood Type O Positive Antibody Screen NEGATIVE Crossmatch See Detail 12/20/18 12/20/18 12/20/18 15:40 16:30 16:30 WBC RBC Hgb Hct MCV MCH MCHC RDW Std Deviation RDW Coeff of Lexy Plt Count MPV Immature Gran % (Auto) Neut % (Auto) Lymph % (Auto) [place] % (Auto) Eos % (Auto) Baso % (Auto) Immature Gran # (Auto) Neut # (Auto) Lymph # (Auto) [place] # (Auto) Eos # (Auto) Baso # (Auto) Hypochromasia PT INR ABG pH 7.31 L ABG pCO2 34 L ABG pO2 134 H ABG HCO3 17 L ABG O2 Saturation 94.4 ABG Base Excess -8.6 [place] Test Pos Barometric Pressure 734.4 Oxygen Given ROOM AIR Sodium Potassium Chloride Carbon Dioxide Anion Gap BUN Creatinine Est Cr Clr Drug Dosing Est GFR ( Amer) Est GFR (Non-Af Amer) BUN/Creatinine Ratio Glucose Lactate Calcium Magnesium Total Bilirubin AST ALT Alkaline Phosphatase Troponin I Total Protein Albumin Globulin Albumin/Globulin Ratio TSH Urine Color Red Urine Appearance Turbid A Urine pH Ur Specific [place] Urine Protein Urine Glucose (UA) Urine Ketones Urine Blood Urine Nitrite Urine Bilirubin Urine Urobilinogen Ur Leukocyte Esterase Urine RBC >30 H Urine WBC >30 H Ur Epithelial Cells 5-10 H Urine Bacteria 1+ H Hyaline Casts 0-5 Ur Random Creatinine 17.5 Ur Random Sodium 80 Ur Random Urea Nitrogn 139 Nasal Screen MRSA (PCR) Blood Type Antibody Screen Crossmatch 12/20/18 12/20/18 12/20/18 20:11 20:11 20:11 WBC 12.39 H RBC 2.60 L Hgb 6.6 L* Hct 20.8 L* MCV 80.0 MCH 25.4 MCHC 31.7 L RDW Std Deviation 52.6 H RDW Coeff of Lexy 18.1 H Plt Count 331 MPV 7.7 Immature Gran % (Auto) 1.0 Neut % (Auto) 85.8 Lymph % (Auto) 5.2 [place] % (Auto) 6.8 Eos % (Auto) 1.0 Baso % (Auto) 0.2 Immature Gran # (Auto) 0.12 H Neut # (Auto) 10.62 H Lymph # (Auto) 0.65 L [place] # (Auto) 0.84 H Eos # (Auto) 0.13 Baso # (Auto) 0.03 Hypochromasia Present PT 21.6 H INR 2.2 H ABG pH ABG pCO2 ABG pO2 ABG HCO3 ABG O2 Saturation ABG Base Excess [place] Test Barometric Pressure Oxygen Given Sodium 132 L Potassium 4.1 Chloride 96 L Carbon Dioxide 20 L Anion Gap 16.0 H BUN 132 H Creatinine 8.44 H* Est Cr Clr Drug Dosing 14.7 Est GFR ( Amer) 7.1 Est GFR (Non-Af Amer) 6.1 BUN/Creatinine Ratio 15.7 Glucose 86 Lactate Calcium 8.0 L Magnesium Total Bilirubin AST ALT Alkaline Phosphatase Troponin I Total Protein Albumin Globulin Albumin/Globulin Ratio TSH Urine Color Urine Appearance Urine pH Ur Specific [place] Urine Protein Urine Glucose (UA) Urine Ketones Urine Blood Urine Nitrite Urine Bilirubin Urine Urobilinogen Ur Leukocyte Esterase Urine RBC Urine WBC Ur Epithelial Cells Urine Bacteria Hyaline Casts Ur Random Creatinine Ur Random Sodium Ur Random Urea Nitrogn Nasal Screen MRSA (PCR) Blood Type Antibody Screen Crossmatch 12/21/18 12/21/18 12/21/18 06:18 09:30 09:30 WBC 10.00 10.14 RBC 3.00 L 2.85 L Hgb 8.0 L 7.7 L Hct 24.7 L 23.4 L MCV 82.3 82.1 MCH 26.7 27.0 MCHC 32.4 32.9 RDW Std Deviation 53.0 H 52.8 H RDW Coeff of Lexy 17.6 H 17.4 H Plt Count 307 306 MPV 8.0 7.9 Immature Gran % (Auto) 1.3 1.2 Neut % (Auto) 79.9 80.3 Lymph % (Auto) 7.2 9.4 [place] % (Auto) 8.7 6.3 Eos % (Auto) 2.7 2.7 Baso % (Auto) 0.2 0.1 Immature Gran # (Auto) 0.13 H 0.12 H Neut # (Auto) 7.99 H 8.15 H Lymph # (Auto) 0.72 L 0.95 L [place] # (Auto) 0.87 H 0.64 H Eos # (Auto) 0.27 0.27 Baso # (Auto) 0.02 0.01 Hypochromasia PT INR ABG pH ABG pCO2 ABG pO2 ABG HCO3 ABG O2 Saturation ABG Base Excess [place] Test Barometric Pressure Oxygen Given Sodium Pending Potassium Pending Chloride Pending Carbon Dioxide Pending Anion Gap Pending BUN Pending Creatinine Pending Est Cr Clr Drug Dosing Pending Est GFR ( Amer) Pending Est GFR (Non-Af Amer) Pending BUN/Creatinine Ratio Pending Glucose Pending Lactate Calcium Pending Magnesium Total Bilirubin AST ALT Alkaline Phosphatase Troponin I Total Protein Albumin Globulin Albumin/Globulin Ratio TSH Urine Color Urine Appearance Urine pH Ur Specific [place] Urine Protein Urine Glucose (UA) Urine Ketones Urine Blood Urine Nitrite Urine Bilirubin Urine Urobilinogen Ur Leukocyte Esterase Urine RBC Urine WBC Ur Epithelial Cells Urine Bacteria Hyaline Casts Ur Random Creatinine Ur Random Sodium Ur Random Urea Nitrogn Nasal Screen MRSA (PCR) Blood Type Antibody Screen Crossmatch PG Care Time/CCT Total # of Minutes Spent Total Time Spent with Patient: Total time spent is greater than 50% in coordination of care (as documented) at patient's floor/unit and/or counseling patient:
[2018-12-21 10:30] LABS: BUN Creatinine Ratio 17.6 (10-20); Calcium 7.9 mg/dl (8.5-10.1); Creatinine Clr Calc Pharmacy 17.2 ml/min; Est GFR (African American) 8.5; Est GFR (Non-African American) 7.3; Potassium 3.8 mmol/L (3.5-5.1)
[2018-12-21] MEDS ORDERED: SODIUM CHLORIDE 0.9% 250 ML IV PRN ×2 (10:32→19:07)
[2018-12-21] MEDS ORDERED: OPTIRAY 300 IV PRN (11:36)
--- NOTE | 2018-12-21 11:48 | CT Scan Report ---
CT abd pelvis IV con only CT DOSE: 2268.81 mGycm HISTORY: Hematuria. Abscess. hematuria, pelvic fluid, distended bladder TECHNIQUE: Multiaxial CT images of the abdomen and pelvis were performed following the use of intrave nous contrast. A dose lowering technique was utilized adhering to the principles of ALARA. COMPARISON STUDY: 12/20/2018. 12/05/2018. FINDINGS: This study is performed with bladder contrast administered. Fitch catheter has been reposit ioned and is now in the Bladder base. There are findings of mild bladder wall trabeculation. There is no evidence for major filling defect. There may be a trace amount of debris within the deep tendon aspect of the bladder. No evidence for contrast extravasation. the study show the slightly complex fluid pockets in the right lateral and right central pelvic regio n to be slightly diminished as compared to the prior exam. They nevertheless remain increased compare d to the prior study of 12/05/2018. The more superior multiloculated fluid fluid component is diminish ed. Renal cysts as well as indeterminate right renal lesion is unaltered. Nonobstructing renal calcifications are unchanged. Liver spleen and pancreas are grossly unremarkable. There are bilateral pleural effusions with bibasilar atelectatic change. This is similar as compared to the prior study. IMPRESSION: 1. Mild bladder wall trabeculation with no evidence for contrast extravasation or bladder leak. 2. Slightly complex fluid pockets in the right central pelvis as well as right superior pelvic region s are mildly improved compared to the prior study. 3. Possibility of multifocal hematomas must be considered. 4. Study is otherwise unchanged. 5. Bibasilar pleural effusions and basilar atelectasis stable compared to the prior exam. The above report was generated using voice recognition software. It may contain grammatical, syntax or spelling errors. Electronically signed by: Andrey Link M.D. 12/21/2018 11:46 AM
[2018-12-21] MEDS: SODIUM BICARBONATE 8.4% 75 MEQ in SODIUM CHLORIDE 0.45 % 1,000 ML IV SCH ×2 (12:14→23:37)
[2018-12-21] MEDS: ACETAMINOPHEN 325 MG TAB PO PRN (13:36)
[2018-12-21] MEDS ORDERED: PHYTONADIONE 2.5 MG in SODIUM CHLORIDE 0.9% 50 ML IV ONE (16:15)
--- NOTE | 2018-12-21 16:16 | Hospitalist Progress Note ---
Date of Service December 21, 2018 Assessment & Plan (1) ADAM (acute kidney injury): Presented with profound ADAM with jig fitter 8.4 on admission, secondary to obstruction--> Fitch bulb was in urethra and causing trauma in setting of INR>10 with gross hematuria Post-obstructive ADAM with ATN Appreciate urgent Urologic management--> removed Fitch and had large amount of bloody and purulent urine drain out--> 3L total Replaced with Fitch 12/20 and RN continues with hand irrigation for hematuria -continues to have large amount of urine output -with AG met acidosis from ADAM, ABG with acidosis -jig fitter improving with IVFs and PRBC transfusion--> now down to 6 Serum bicarb improved up to 20 -continue IVFs with bicarb as per Nephrology Appreciate Nephrology management, no urgent HD needed at this time Appreciate Urology management -if needed intermittent HD, would need transfer to another facility for the weekend there is no urgent HD availability -follow BMP serially -avoid nephrotoxins -continue tele monitoring (2) Gross hematuria: With large amount of hematuria secondary to Fitch trauma in setting of INR>10 as above -slowing down but persists -INR still elevated at 2.2 today despite FFP and Vit K yesterday -give another Vit K 5mg IV x 1 today--> INR down to 1.3 -with acute blood loss anemia requiring 3 units PRBCs today and hgb still only at 7.0 -transfuse another 2 units PRBCs -follow Hgb -appreciate Urology management -continue hand irrigation of Fitch as per Urology (3) UTI (urinary tract infection) due to urinary indwelling Fitch catheter: With UTI on admission secondary to profound obstruction as above. Purulent urine noted to drain out after Fitch replaced by Urol -given h/o resistant organisms, change abx from ceftriaxone to Ertapenem -follow Ur cx (4) Anemia: Acute blood loss anemia in setting of chronic disease anemia and Fe- deficiency anemia With microcytic anemia and Fe deficiency - Baseline Hgb is 9-10 - received 3 units PRBCs and hgb only 7.0 this evening With ongoing hematuria -giving another dose of Vit K 5mg IV x 1 -give another 2 units PRBCs -follow CBC in AM -holding home antihypertensives (5) Supratherapeutic INR: - INR of 10.4 on admission - Received Vit K 10 mg IV in the ER, received FFP 2 units - continue to hold coumadin -giving another Vit K 5mg IV x 1 now due to ongoing hematuria and acute blood loss anemia requiring transfusions repeat INR down to 1.3 - Follow INR (6) Chronic indwelling Fitch catheter: Since 2016, has been bed-bound since that time - Fitch was exchanged on 12/20 as above (7) Hyponatremia: - Na down 131 upon admission, secondary to ADAM Now improved -follow BMP (8) Heart failure, systolic, due to idiopathic cardiomyopathy: - chronic systolic CHF - Recent echo showing LVEF of 40% - holding lasix and metoprolol--> of note, he is supposed to have Toprol XL 25mg daily on his home med list, but is on there as metoprolol tartrate 25mg po qday--> will have to sort out prior to discharge (9) Atrial fibrillation and flutter: - history of such currently in NSR, paced rhythm, frequent PVCs -holding metoprolol due to acute blood loss and ongoing bleeding -continue tele monitoring -is on coumadin typically but being held (10) KEARA (obstructive sleep apnea): - s/p trach placement 2016 - previous noncompliance with CPAP for KEARA (11) Obesity hypoventilation syndrome: - noted, with trach in place (12) H/O tracheostomy: - spaced in 2016 following intubation and mechanical ventilation for respiratory failure - noncompliance with CPAP for KEARA and the trach was placed as a result - Was changed during last admission on 12/02/18 (13) Abnormal CT of the abdomen: With a h/o numerous extraperitoneal fluid collections with some up to 5cm in size, ? if these areas were microabscesses vs small hematomas vs a combination of the two. Consider old hematoma from even previous admission as well as possible new ones today with INR being significantly supratherapeutic again. Repeat CT 12/21 with decreased size of collections -follow along with imaging Cystogram today without evidence of bladder perforation (14) Gait disorder: - Has not been ambulatory for 2 years - PT/OT consults (15) Renal mass, right: - Hx of right renal mass, unclear if ever diagnosed with cancer (16) Depression: - Continue sertraline 100 mg daily (17) Hypothyroidism: - Continue levothyroxine 100 mcg daily TSH here is 3.48 (18) Morbid obesity with BMI of 60.0-69.9, adult: - BMI of 56.6 this time, was over 60 during last admission - HH/DM diet (19) Venous insufficiency: - Chronic, wound consult for ulcerations on the R calf - Lymphedema at baseline (20) Lymphedema: - Wound consulted - appreciate (21) Dyslipidemia: - Cont statin therapy (22) Severe protein-calorie malnutrition: Albumin severely low at 1.5 - appreciate Dietary recommendations--> add supplement when jig fitter comes down -add nephrocaps for improved wound healing -follow labs, BMP, Phos, albumin (23) Asthma: - Hx of such, continue nebs QID as per home meds, no acute issues but is requiring 40% FiO@ via trach collar (24) DVT prophylaxis: - no chemical ppx ordered with supratherapeutic INR, gross hematuria - teds/scds not able to be placed due to lymphedema and chronic wounds Dispo: From [facility], PT/OT consults, remain on PCU, prognosis guarded FULL CODE Subjective Pt has complaint only of some right biceps pain after straining his arm to try to pull himself up. Reports he has not been out of bed in many months and hasn't walked "in a long time." Denies any abdominal pain, no CP or SOB, not lightheaded. Continues to have hematuria in Fitch, being hand irrigated by RN Had Iftch exchanged last evening for approximately 1L of blood and 3L of urine. Tele with NSR, frequent PVCs, pacing, some 2-4 beat runs PVCs and one 9 beat run of VT Review of Systems Review of Systems: All systems reviewed & are unremarkable except as noted in HPI & below Physical Exam Constitutional: WD/WN, vitals as above + morbidly obese Eyes: + anicteric sclerae Neck: + tracheostomy present Respiratory: normal respiratory effort Auscultation: + diminished lung sounds (bilat bases); no wheezes Cardiovascular: Rate/Rhythm: regular rate and regular rhythm Heart Sounds: no murmur Extremities: + edema (3+ pitting edema to thighs bilat) Gastrointestinal (Abdomen): normal bowel sounds, soft, nontender, no hepatosplenomegaly (morbidly obese abdomen, only minimal TTP RLQ withoug guarding or rebound) Musculoskeletal: Extremities: no cyanosis and no clubbing Skin: + wound (wound posterior leg) Neurologic: moves all extremities and awake; no focal motor deficits Psychiatric: A+Ox3, euthymic affect Genitourinary: Fitch in place with dark red urine in bag Results & Data Vital Signs (Past 12 Hours) Vital Signs Temp Pulse Pulse Resp BP BP Pulse Ox 12/21/18 15:45 81 18 97 12/21/18 15:03 36.5 C 74 19 128/62 96 12/21/18 13:50 36.4 C L 70 18 116/47 L 96 12/21/18 13:49 36.4 C L 70 18 116/47 L 96 12/21/18 13:33 36.3 C L 70 18 118/68 96 12/21/18 11:25 36.4 C L 75 16 106/44 L 93 12/21/18 09:41 72 12/21/18 07:57 36.4 C L 75 18 132/54 L 98 12/21/18 07:20 72 18 94 12/21/18 04:42 36.4 C L 70 20 111/51 L 97 12/21/18 04:18 36.6 C 72 20 114/57 L 96 Laboratory Results 12/21/18 12/21/18 12/21/18 Range/Units 21:11 18:16 18:16 WBC (4.8-10.8) K/uL RBC (4.7-6.1) M/uL Hgb (14.0-18.0) g/dL Hct (42-52) % MCV (80-100) fL MCH (25-34) pg MCHC (32-36) g/dL RDW Std Deviation (36.4-46.3) fL RDW Coeff of Lexy (11.5-14.5) % Plt Count (130-400) K/uL MPV (7.4-10.4) fL Immature Gran % (Auto) % Neut % (Auto) % Lymph % (Auto) % Jerome % (Auto) % Eos % (Auto) % Baso % (Auto) % Immature Gran # (Auto) (0.00-0.02) K/uL Neut # (Auto) (1.4-6.5) K/uL Lymph # (Auto) (1.2-3.4) K/uL Jerome # (Auto) (0.11-0.59) K/uL Eos # (Auto) (0-0.5) K/uL Baso # (Auto) (0-0.2) K/uL Spherocytes PT 13.5 H (9.0-12.0) Seconds INR 1.3 H (0.9-1.1) Sodium (136-145) mmol/L Potassium (3.5-5.1) mmol/L Chloride (98-107) mmol/L Carbon Dioxide (21-32) mmol/L Anion Gap (3-11) BUN (7-18) mg/dl Creatinine (0.6-1.4) mg/dl Est Cr Clr Drug Dosing ml/min Est GFR ( Amer) Est GFR (Non-Af Amer) BUN/Creatinine Ratio (10-20) Glucose (70-99) mg/dl POC Glucose 100 H (70-99) Calcium (8.5-10.1) mg/dl Phosphorus (2.5-4.9) mg/dl Albumin (3.4-5.0) gm/dl Blood Type Blood Type Recheck O Positive Antibody Screen Crossmatch 12/21/18 12/21/18 12/21/18 Range/Units 18:16 18:16 09:30 WBC 8.64 (4.8-10.8) K/uL RBC 2.63 L (4.7-6.1) M/uL Hgb 7.0 L (14.0-18.0) g/dL Hct 21.4 L (42-52) % MCV 81.4 (80-100) fL MCH 26.6 (25-34) pg MCHC 32.7 (32-36) g/dL RDW Std Deviation 52.5 H (36.4-46.3) fL RDW Coeff of Lexy 17.7 H (11.5-14.5) % Plt Count 310 (130-400) K/uL MPV 8.0 (7.4-10.4) fL Immature Gran % (Auto) 1.0 % Neut % (Auto) 81.1 % Lymph % (Auto) 8.3 % Jerome % (Auto) 6.4 % Eos % (Auto) 3.0 % Baso % (Auto) 0.2 % Immature Gran # (Auto) 0.09 H (0.00-0.02) K/uL Neut # (Auto) 7.00 H (1.4-6.5) K/uL Lymph # (Auto) 0.72 L (1.2-3.4) K/uL Jerome # (Auto) 0.55 (0.11-0.59) K/uL Eos # (Auto) 0.26 (0-0.5) K/uL Baso # (Auto) 0.02 (0-0.2) K/uL Spherocytes Occasional PT (9.0-12.0) Seconds INR (0.9-1.1) Sodium 139 135 L (136-145) mmol/L Potassium 3.5 3.8 (3.5-5.1) mmol/L Chloride 102 99 (98-107) mmol/L Carbon Dioxide 20 L 21 (21-32) mmol/L Anion Gap 17.0 H 15.0 H (3-11) BUN 122 H 128 H (7-18) mg/dl Creatinine 6.24 H* D 7.26 H* D (0.6-1.4) mg/dl Est Cr Clr Drug Dosing 20.0 17.2 ml/min Est GFR ( Amer) 10.2 8.5 Est GFR (Non-Af Amer) 8.8 7.3 BUN/Creatinine Ratio 19.7 17.6 (10-20) Glucose 69 L 79 (70-99) mg/dl POC Glucose (70-99) Calcium 7.7 L 7.9 L (8.5-10.1) mg/dl Phosphorus 7.8 H (2.5-4.9) mg/dl Albumin 1.5 L (3.4-5.0) gm/dl Blood Type Blood Type Recheck Antibody Screen Crossmatch 12/21/18 12/21/18 12/20/18 Range/Units 09:30 06:18 12:11 WBC 10.14 10.00 (4.8-10.8) K/uL RBC 2.85 L 3.00 L (4.7-6.1) M/uL Hgb 7.7 L 8.0 L (14.0-18.0) g/dL Hct 23.4 L 24.7 L (42-52) % MCV 82.1 82.3 (80-100) fL MCH 27.0 26.7 (25-34) pg MCHC 32.9 32.4 (32-36) g/dL RDW Std Deviation 52.8 H 53.0 H (36.4-46.3) fL RDW Coeff of Lexy 17.4 H 17.6 H (11.5-14.5) % Plt Count 306 307 (130-400) K/uL MPV 7.9 8.0 (7.4-10.4) fL Immature Gran % (Auto) 1.2 1.3 % Neut % (Auto) 80.3 79.9 % Lymph % (Auto) 9.4 7.2 % Jerome % (Auto) 6.3 8.7 % Eos % (Auto) 2.7 2.7 % Baso % (Auto) 0.1 0.2 % Immature Gran # (Auto) 0.12 H 0.13 H (0.00-0.02) K/uL Neut # (Auto) 8.15 H 7.99 H (1.4-6.5) K/uL Lymph # (Auto) 0.95 L 0.72 L (1.2-3.4) K/uL Jerome # (Auto) 0.64 H 0.87 H (0.11-0.59) K/uL Eos # (Auto) 0.27 0.27 (0-0.5) K/uL Baso # (Auto) 0.01 0.02 (0-0.2) K/uL Spherocytes Occasional PT (9.0-12.0) Seconds INR (0.9-1.1) Sodium (136-145) mmol/L Potassium (3.5-5.1) mmol/L Chloride (98-107) mmol/L Carbon Dioxide (21-32) mmol/L Anion Gap (3-11) BUN (7-18) mg/dl Creatinine (0.6-1.4) mg/dl Est Cr Clr Drug Dosing ml/min Est GFR ( Amer) Est GFR (Non-Af Amer) BUN/Creatinine Ratio (10-20) Glucose (70-99) mg/dl POC Glucose (70-99) Calcium (8.5-10.1) mg/dl Phosphorus (2.5-4.9) mg/dl Albumin (3.4-5.0) gm/dl Blood Type O Positive Blood Type Recheck Antibody Screen NEGATIVE Crossmatch See Detail PG Care Time/CCT Total # of Minutes Spent Total Time Spent with Patient: Total time spent is greater than 50% in coordination of care (as documented) at patient's floor/unit and/or counseling patient: (1) Anemia Anemia type: other cause (2) Depression Depression Type: other depression Qualified Code(s): F32.89 - Other specified depressive episodes (3) Hypothyroidism Hypothyroidism type: acquired Qualified Code(s): E03.9 - Hypothyroidism, unspecified (4) Asthma Asthma complication type: unspecified Asthma persistence: unspecified Asthma severity: unspecified severity Qualified Code(s): J45.909 - Unspecified asthma, uncomplicated
[2018-12-21 18:44] LABS: Basophils # (auto) 0.02 K/uL (0-0.2); Basophils % (auto) 0.2 %; Eosinophils # (auto) 0.26 K/uL (0-0.5); Hematocrit (blood only) 21.4 % (42-52); Immature Granulocytes # (auto) 0.09 K/uL (0.00-0.02); Lymphocytes # (auto) 0.72 K/uL (1.2-3.4); Lymphocytes % (auto) 8.3 %; Mean Corpuscular Hemoglobin 26.6 pg (25-34); Mean Corpuscular Hgb Conc 32.7 g/dL (32-36); Mean Corpuscular Volume 81.4 fL (80-100); Monocytes # (auto) 0.55 K/uL (0.11-0.59); Monocytes % (auto) 6.4 %; Neutrophils % (auto) 81.1 %; Platelet Count 310 K/uL (130-400); RDW Coefficient of Variation 17.7 % (11.5-14.5); RDW Standard Deviation 52.5 fL (36.4-46.3); Red Blood Count 2.63 M/uL (4.7-6.1); White Blood Count 8.64 K/uL (4.8-10.8)
[2018-12-21 19:09] LABS: INR 1.3 (0.9-1.1); Prothrombin Time 13.5 Seconds (9.0-12.0); Spherocytes Occasional
[2018-12-21 19:25] LABS: Albumin Level 1.5 gm/dl (3.4-5.0); BUN Creatinine Ratio 19.7 (10-20); Calcium 7.7 mg/dl (8.5-10.1); Est GFR (African American) 10.2; Est GFR (Non-African American) 8.8; Phosphorus 7.8 mg/dl (2.5-4.9); Potassium 3.5 mmol/L (3.5-5.1)
[2018-12-22] MEDS: LEVOTHYROXINE SODIUM 100 MCG TABLET PO SCH (05:53)
[2018-12-22 06:23] LABS: Basophils # (auto) 0.03 K/uL (0-0.2); Basophils % (auto) 0.3 %; Eosinophils # (auto) 0.45 K/uL (0-0.5); Eosinophils % (auto) 4.7 %; Hemoglobin 8.5 g/dL (14.0-18.0); Immature Granulocytes # (auto) 0.13 K/uL (0.00-0.02); Immature Granulocytes % (auto) 1.3 %; Lymphocytes % (auto) 8.3 %; Mean Corpuscular Hemoglobin 28.2 pg (25-34); Mean Corpuscular Volume 83.1 fL (80-100); Mean Platelet Volume 7.9 fL (7.4-10.4); Monocytes % (auto) 8.3 %; Neutrophils # (auto) 7.42 K/uL (1.4-6.5); Neutrophils % (auto) 77.1 %; Platelet Count 291 K/uL (130-400); RDW Coefficient of Variation 17.4 % (11.5-14.5); RDW Standard Deviation 52.9 fL (36.4-46.3); Red Blood Count 3.01 M/uL (4.7-6.1); White Blood Count 9.63 K/uL (4.8-10.8)
[2018-12-22 06:26] LABS: INR 1.3 (0.9-1.1); Prothrombin Time 12.7 Seconds (9.0-12.0)
[2018-12-22 07:05] LABS: Albumin Level 1.5 gm/dl (3.4-5.0); BUN Creatinine Ratio 24.3 (10-20); Bilirubin Direct 0.2 mg/dl (0-0.2); Bilirubin,Total 0.7 mg/dl (0.2-1); Calcium 7.5 mg/dl (8.5-10.1); Creatinine Clr Calc Pharmacy 25.7 ml/min; Est GFR (African American) 13.7; Est GFR (Non-African American) 11.8; Magnesium 2.3 mg/dl (1.8-2.4); Phosphorus 6.5 mg/dl (2.5-4.9); Potassium 3.3 mmol/L (3.5-5.1); Total Protein 6.9 gm/dl (6.4-8.2)
[2018-12-22] MEDS: ALBUT/IPRATROP 3MG/0.5MG NEB 3 ML VIAL NEB SCH ×4 (07:07→18:56)
[2018-12-22] MEDS: SERTRALINE HCL 50 MG TABLET PO SCH (08:08)
[2018-12-22] MEDS: guaiFENesin 600 MG TABCR PO SCH ×2 (08:08→20:16)
[2018-12-22] MEDS: NEPHROCAPS PO SCH (08:08)
[2018-12-22] MEDS: FERROUS SULFATE 325 MG TAB PO SCH (08:08)
[2018-12-22] MEDS: NYSTATIN POWDER 15GM BTL EXT SCH (08:09)
[2018-12-22] MEDS: CHLORHEXIDINE GLUCONATE 0.12% 480 ML MT SCH ×2 (08:09→20:17)
[2018-12-22] MEDS: SIMVASTATIN 10 MG TAB PO SCH (08:10)
[2018-12-22] MEDS: PANTOprazole 40 MG TAB PO SCH (08:10)
--- NOTE | 2018-12-22 08:41 | Urology Progress Note ---
Date of Service December 22, 2018 Assessment & Plan (1) Gross hematuria: Improved. Would consider holding Coumadin indefinitely or at the very least far closer control of the patient's INR in the future seen past events. (2) UTI (urinary tract infection) due to urinary indwelling Davey catheter: Diflucan for C Albicans UTI. Not overly suprising with chronic davey and recurrent UTI / antibiotics. (3) Chronic indwelling Davey catheter: Ideally should be removed with time. OP management per prior managing MD. Subjective 63 yo male admitted with renal failure, gross hematuria, anemia and malpostioned davey. Events noted, past notes are reviewed. Urine cleared, no new c/o, taking regular diet. Hb and Cr improved. Images from CT cystogram reviewed yesterday - unremarkable, no extravasation. Julia albicans noted in urine culture. Review of Systems Constitutional: no fever and no chills Eyes: no diplopia Ear, Nose, Mouth, Throat: no ear trauma Respiratory: no hemoptysis Cardiovascular: no chest pain Neurologic: no paralysis Psychiatric: no hopelessness Allergy / Immunological: no tongue swelling Physical Exam Constitutional: WD/WN, vitals as above + morbidly obese Eyes: + anicteric sclerae Neck: + tracheostomy present Respiratory: normal respiratory effort Auscultation: + diminished lung sounds (bilat bases); no wheezes Cardiovascular: Rate/Rhythm: regular rate and regular rhythm Heart Sounds: no murmur Extremities: + edema (3+ pitting edema to thighs bilat) Gastrointestinal (Abdomen): normal bowel sounds, soft, nontender, no hepatosplenomegaly (morbidly obese abdomen, only minimal TTP RLQ withoug guarding or rebound) Musculoskeletal: Extremities: no cyanosis and no clubbing Skin: + wound (wound posterior leg) Neurologic: moves all extremities and awake; no focal motor deficits Psychiatric: A+Ox3, euthymic affect Genitourinary: Davey in place with dark red urine in bag Results & Data Vital Signs (Past 12 Hours) Vital Signs Temp Pulse Pulse Resp BP BP Pulse Ox 12/22/18 07:55 36.4 C L 90 24 153/71 H 94 12/22/18 07:10 71 16 94 12/22/18 04:25 36.6 C 87 20 140/60 93 12/22/18 01:48 36.8 C 83 18 149/61 H 93 12/22/18 00:50 36.5 C 81 16 143/60 H 94 12/22/18 00:00 89 12/21/18 23:50 36.7 C 77 18 120/54 L 94 12/21/18 23:20 36.6 C 66 16 155/64 H 94 12/21/18 23:05 36.7 C 84 16 110/63 93 12/21/18 22:49 36.6 C 84 16 127/58 L 94 12/21/18 22:34 36.7 C 76 18 147/62 H 96 12/21/18 21:59 36.6 C 87 16 138/61 92 12/21/18 21:45 36.6 C 90 18 145/85 H 94 12/21/18 20:59 36.6 C 87 16 137/64 94 Laboratory Results Laboratory Results - last 48 hr 12/20/18 12/20/18 12/20/18 12:06 12:06 12:06 WBC 11.22 H RBC 2.85 L Hgb 7.2 L Hct 22.7 L MCV 79.6 L MCH 25.3 MCHC 31.7 L RDW Std Deviation 53.3 H RDW Coeff of Lexy 18.1 H Plt Count 391 MPV 8.1 Immature Gran % (Auto) 1.0 Neut % (Auto) 84.4 Lymph % (Auto) 5.9 [place] % (Auto) 7.4 Eos % (Auto) 1.1 Baso % (Auto) 0.2 Immature Gran # (Auto) 0.11 H Neut # (Auto) 9.48 H Lymph # (Auto) 0.66 L [place] # (Auto) 0.83 H Eos # (Auto) 0.12 Baso # (Auto) 0.02 Hypochromasia Present Spherocytes PT > 90.0 H INR 10.4 H* ABG pH ABG pCO2 ABG pO2 ABG HCO3 ABG O2 Saturation ABG Base Excess [place] Test Barometric Pressure Oxygen Given Sodium 131 L Potassium 4.2 Chloride 96 L Carbon Dioxide 19 L Anion Gap 16.0 H BUN 128 H Creatinine 8.24 H* Est Cr Clr Drug Dosing 14.7 Est GFR ( Amer) 7.3 Est GFR (Non-Af Amer) 6.3 BUN/Creatinine Ratio 15.5 Glucose 95 POC Glucose Lactate Calcium 8.1 L Phosphorus Magnesium 2.5 H Total Bilirubin 0.9 Direct Bilirubin AST 21 ALT 18 Alkaline Phosphatase 88 Troponin I < 0.015 Total Protein 7.8 Albumin 1.7 L Globulin 6.1 H Albumin/Globulin Ratio 0.3 L TSH 3.480 Urine Color Urine Appearance Urine pH Ur Specific [place] Urine Protein Urine Glucose (UA) Urine Ketones Urine Blood Urine Nitrite Urine Bilirubin Urine Urobilinogen Ur Leukocyte Esterase Urine RBC Urine WBC Ur Epithelial Cells Urine Bacteria Hyaline Casts Ur Random Creatinine Ur Random Sodium Ur Random Urea Nitrogn Nasal Screen MRSA (PCR) Blood Type Blood Type Recheck Antibody Screen Crossmatch 12/20/18 12/20/18 12/20/18 12:11 14:40 15:40 WBC RBC Hgb Hct MCV MCH MCHC RDW Std Deviation RDW Coeff of Lexy Plt Count MPV Immature Gran % (Auto) Neut % (Auto) Lymph % (Auto) [place] % (Auto) Eos % (Auto) Baso % (Auto) Immature Gran # (Auto) Neut # (Auto) Lymph # (Auto) [place] # (Auto) Eos # (Auto) Baso # (Auto) Hypochromasia Spherocytes PT INR ABG pH ABG pCO2 ABG pO2 ABG HCO3 ABG O2 Saturation ABG Base Excess [place] Test Barometric Pressure Oxygen Given Sodium Potassium Chloride Carbon Dioxide Anion Gap BUN Creatinine Est Cr Clr Drug Dosing Est GFR ( Amer) Est GFR (Non-Af Amer) BUN/Creatinine Ratio Glucose POC Glucose Lactate 0.6 Calcium Phosphorus Magnesium Total Bilirubin Direct Bilirubin AST ALT Alkaline Phosphatase Troponin I Total Protein Albumin Globulin Albumin/Globulin Ratio TSH Urine Color Urine Appearance Urine pH Ur Specific [place] Urine Protein Urine Glucose (UA) Urine Ketones Urine Blood Urine Nitrite Urine Bilirubin Urine Urobilinogen Ur Leukocyte Esterase Urine RBC Urine WBC Ur Epithelial Cells Urine Bacteria Hyaline Casts Ur Random Creatinine Ur Random Sodium Ur Random Urea Nitrogn Nasal Screen MRSA (PCR) Negative Blood Type O Positive Blood Type Recheck Antibody Screen NEGATIVE Crossmatch See Detail 12/20/18 12/20/18 12/20/18 15:40 16:30 16:30 WBC RBC Hgb Hct MCV MCH MCHC RDW Std Deviation RDW Coeff of Lexy Plt Count MPV Immature Gran % (Auto) Neut % (Auto) Lymph % (Auto) [place] % (Auto) Eos % (Auto) Baso % (Auto) Immature Gran # (Auto) Neut # (Auto) Lymph # (Auto) [place] # (Auto) Eos # (Auto) Baso # (Auto) Hypochromasia Spherocytes PT INR ABG pH 7.31 L ABG pCO2 34 L ABG pO2 134 H ABG HCO3 17 L ABG O2 Saturation 94.4 ABG Base Excess -8.6 [place] Test Pos Barometric Pressure 734.4 Oxygen Given ROOM AIR Sodium Potassium Chloride Carbon Dioxide Anion Gap BUN Creatinine Est Cr Clr Drug Dosing Est GFR ( Amer) Est GFR (Non-Af Amer) BUN/Creatinine Ratio Glucose POC Glucose Lactate Calcium Phosphorus Magnesium Total Bilirubin Direct Bilirubin AST ALT Alkaline Phosphatase Troponin I Total Protein Albumin Globulin Albumin/Globulin Ratio TSH Urine Color Red Urine Appearance Turbid A Urine pH Ur Specific [place] Urine Protein Urine Glucose (UA) Urine Ketones Urine Blood Urine Nitrite Urine Bilirubin Urine Urobilinogen Ur Leukocyte Esterase Urine RBC >30 H Urine WBC >30 H Ur Epithelial Cells 5-10 H Urine Bacteria 1+ H Hyaline Casts 0-5 Ur Random Creatinine 17.5 Ur Random Sodium 80 Ur Random Urea Nitrogn 139 Nasal Screen MRSA (PCR) Blood Type Blood Type Recheck Antibody Screen Crossmatch 12/20/18 12/20/18 12/20/18 20:11 20:11 20:11 WBC 12.39 H RBC 2.60 L Hgb 6.6 L* Hct 20.8 L* MCV 80.0 MCH 25.4 MCHC 31.7 L RDW Std Deviation 52.6 H RDW Coeff of Lexy 18.1 H Plt Count 331 MPV 7.7 Immature Gran % (Auto) 1.0 Neut % (Auto) 85.8 Lymph % (Auto) 5.2 [place] % (Auto) 6.8 Eos % (Auto) 1.0 Baso % (Auto) 0.2 Immature Gran # (Auto) 0.12 H Neut # (Auto) 10.62 H Lymph # (Auto) 0.65 L [place] # (Auto) 0.84 H Eos # (Auto) 0.13 Baso # (Auto) 0.03 Hypochromasia Present Spherocytes PT 21.6 H INR 2.2 H ABG pH ABG pCO2 ABG pO2 ABG HCO3 ABG O2 Saturation ABG Base Excess [place] Test Barometric Pressure Oxygen Given Sodium 132 L Potassium 4.1 Chloride 96 L Carbon Dioxide 20 L Anion Gap 16.0 H BUN 132 H Creatinine 8.44 H* Est Cr Clr Drug Dosing 14.7 Est GFR ( Amer) 7.1 Est GFR (Non-Af Amer) 6.1 BUN/Creatinine Ratio 15.7 Glucose 86 POC Glucose Lactate Calcium 8.0 L Phosphorus Magnesium Total Bilirubin Direct Bilirubin AST ALT Alkaline Phosphatase Troponin I Total Protein Albumin Globulin Albumin/Globulin Ratio TSH Urine Color Urine Appearance Urine pH Ur Specific [place] Urine Protein Urine Glucose (UA) Urine Ketones Urine Blood Urine Nitrite Urine Bilirubin Urine Urobilinogen Ur Leukocyte Esterase Urine RBC Urine WBC Ur Epithelial Cells Urine Bacteria Hyaline Casts Ur Random Creatinine Ur Random Sodium Ur Random Urea Nitrogn Nasal Screen MRSA (PCR) Blood Type Blood Type Recheck Antibody Screen Crossmatch 12/21/18 12/21/18 12/21/18 06:18 09:30 09:30 WBC 10.00 10.14 RBC 3.00 L 2.85 L Hgb 8.0 L 7.7 L Hct 24.7 L 23.4 L MCV 82.3 82.1 MCH 26.7 27.0 MCHC 32.4 32.9 RDW Std Deviation 53.0 H 52.8 H RDW Coeff of Lexy 17.6 H 17.4 H Plt Count 307 306 MPV 8.0 7.9 Immature Gran % (Auto) 1.3 1.2 Neut % (Auto) 79.9 80.3 Lymph % (Auto) 7.2 9.4 [place] % (Auto) 8.7 6.3 Eos % (Auto) 2.7 2.7 Baso % (Auto) 0.2 0.1 Immature Gran # (Auto) 0.13 H 0.12 H Neut # (Auto) 7.99 H 8.15 H Lymph # (Auto) 0.72 L 0.95 L [place] # (Auto) 0.87 H 0.64 H Eos # (Auto) 0.27 0.27 Baso # (Auto) 0.02 0.01 Hypochromasia Spherocytes Occasional PT INR ABG pH ABG pCO2 ABG pO2 ABG HCO3 ABG O2 Saturation ABG Base Excess [place] Test Barometric Pressure Oxygen Given Sodium 135 L Potassium 3.8 Chloride 99 Carbon Dioxide 21 Anion Gap 15.0 H BUN 128 H Creatinine 7.26 H* D Est Cr Clr Drug Dosing 17.2 Est GFR ( Amer) 8.5 Est GFR (Non-Af Amer) 7.3 BUN/Creatinine Ratio 17.6 Glucose 79 POC Glucose Lactate Calcium 7.9 L Phosphorus Magnesium Total Bilirubin Direct Bilirubin AST ALT Alkaline Phosphatase Troponin I Total Protein Albumin Globulin Albumin/Globulin Ratio TSH Urine Color Urine Appearance Urine pH Ur Specific [place] Urine Protein Urine Glucose (UA) Urine Ketones Urine Blood Urine Nitrite Urine Bilirubin Urine Urobilinogen Ur Leukocyte Esterase Urine RBC Urine WBC Ur Epithelial Cells Urine Bacteria Hyaline Casts Ur Random Creatinine Ur Random Sodium Ur Random Urea Nitrogn Nasal Screen MRSA (PCR) Blood Type Blood Type Recheck Antibody Screen Crossmatch 12/21/18 12/21/18 12/21/18 18:16 18:16 18:16 WBC 8.64 RBC 2.63 L Hgb 7.0 L Hct 21.4 L MCV 81.4 MCH 26.6 MCHC 32.7 RDW Std Deviation 52.5 H RDW Coeff of Lexy 17.7 H Plt Count 310 MPV 8.0 Immature Gran % (Auto) 1.0 Neut % (Auto) 81.1 Lymph % (Auto) 8.3 [place] % (Auto) 6.4 Eos % (Auto) 3.0 Baso % (Auto) 0.2 Immature Gran # (Auto) 0.09 H Neut # (Auto) 7.00 H Lymph # (Auto) 0.72 L [place] # (Auto) 0.55 Eos # (Auto) 0.26 Baso # (Auto) 0.02 Hypochromasia Spherocytes Occasional PT 13.5 H INR 1.3 H ABG pH ABG pCO2 ABG pO2 ABG HCO3 ABG O2 Saturation ABG Base Excess [place] Test Barometric Pressure Oxygen Given Sodium 139 Potassium 3.5 Chloride 102 Carbon Dioxide 20 L Anion Gap 17.0 H BUN 122 H Creatinine 6.24 H* D Est Cr Clr Drug Dosing 20.0 Est GFR ( Amer) 10.2 Est GFR (Non-Af Amer) 8.8 BUN/Creatinine Ratio 19.7 Glucose 69 L POC Glucose Lactate Calcium 7.7 L Phosphorus 7.8 H Magnesium Total Bilirubin Direct Bilirubin AST ALT Alkaline Phosphatase Troponin I Total Protein Albumin 1.5 L Globulin Albumin/Globulin Ratio TSH Urine Color Urine Appearance Urine pH Ur Specific [place] Urine Protein Urine Glucose (UA) Urine Ketones Urine Blood Urine Nitrite Urine Bilirubin Urine Urobilinogen Ur Leukocyte Esterase Urine RBC Urine WBC Ur Epithelial Cells Urine Bacteria Hyaline Casts Ur Random Creatinine Ur Random Sodium Ur Random Urea Nitrogn Nasal Screen MRSA (PCR) Blood Type Blood Type Recheck Antibody Screen Crossmatch 12/21/18 12/21/18 12/22/18 18:16 21:11 06:05 WBC 9.63 RBC 3.01 L Hgb 8.5 L Hct 25.0 L MCV 83.1 MCH 28.2 MCHC 34.0 RDW Std Deviation 52.9 H RDW Coeff of Lxey 17.4 H Plt Count 291 MPV 7.9 Immature Gran % (Auto) 1.3 Neut % (Auto) 77.1 Lymph % (Auto) 8.3 [place] % (Auto) 8.3 Eos % (Auto) 4.7 Baso % (Auto) 0.3 Immature Gran # (Auto) 0.13 H Neut # (Auto) 7.42 H Lymph # (Auto) 0.80 L [place] # (Auto) 0.80 H Eos # (Auto) 0.45 Baso # (Auto) 0.03 Hypochromasia Spherocytes PT INR ABG pH ABG pCO2 ABG pO2 ABG HCO3 ABG O2 Saturation ABG Base Excess [place] Test Barometric Pressure Oxygen Given Sodium Potassium Chloride Carbon Dioxide Anion Gap BUN Creatinine Est Cr Clr Drug Dosing Est GFR ( Amer) Est GFR (Non-Af Amer) BUN/Creatinine Ratio Glucose POC Glucose 100 H Lactate Calcium Phosphorus Magnesium Total Bilirubin Direct Bilirubin AST ALT Alkaline Phosphatase Troponin I Total Protein Albumin Globulin Albumin/Globulin Ratio TSH Urine Color Urine Appearance Urine pH Ur Specific [place] Urine Protein Urine Glucose (UA) Urine Ketones Urine Blood Urine Nitrite Urine Bilirubin Urine Urobilinogen Ur Leukocyte Esterase Urine RBC Urine WBC Ur Epithelial Cells Urine Bacteria Hyaline Casts Ur Random Creatinine Ur Random Sodium Ur Random Urea Nitrogn Nasal Screen MRSA (PCR) Blood Type Blood Type Recheck O Positive Antibody Screen Crossmatch 12/22/18 12/22/18 06:05 06:05 WBC RBC Hgb Hct MCV MCH MCHC RDW Std Deviation RDW Coeff of Lexy Plt Count MPV Immature Gran % (Auto) Neut % (Auto) Lymph % (Auto) [place] % (Auto) Eos % (Auto) Baso % (Auto) Immature Gran # (Auto) Neut # (Auto) Lymph # (Auto) [place] # (Auto) Eos # (Auto) Baso # (Auto) Hypochromasia Spherocytes PT 12.7 H INR 1.3 H ABG pH ABG pCO2 ABG pO2 ABG HCO3 ABG O2 Saturation ABG Base Excess [place] Test Barometric Pressure Oxygen Given Sodium 140 Potassium 3.3 L Chloride 104 Carbon Dioxide 22 Anion Gap 13.0 H BUN 119 H Creatinine 4.89 H* D Est Cr Clr Drug Dosing 25.7 Est GFR ( Amer) 13.7 Est GFR (Non-Af Amer) 11.8 BUN/Creatinine Ratio 24.3 H Glucose 74 POC Glucose Lactate Calcium 7.5 L Phosphorus 6.5 H Magnesium 2.3 Total Bilirubin 0.7 Direct Bilirubin 0.2 AST 14 L ALT 12 Alkaline Phosphatase 78 Troponin I Total Protein 6.9 Albumin 1.5 L Globulin Albumin/Globulin Ratio TSH Urine Color Urine Appearance Urine pH Ur Specific [place] Urine Protein Urine Glucose (UA) Urine Ketones Urine Blood Urine Nitrite Urine Bilirubin Urine Urobilinogen Ur Leukocyte Esterase Urine RBC Urine WBC Ur Epithelial Cells Urine Bacteria Hyaline Casts Ur Random Creatinine Ur Random Sodium Ur Random Urea Nitrogn Nasal Screen MRSA (PCR) Blood Type Blood Type Recheck Antibody Screen Crossmatch PG Care Time/CCT Total # of Minutes Spent Total Time Spent with Patient: Total time spent is greater than 50% in coordination of care (as documented) at patient's floor/unit and/or counseling patient:
[2018-12-22] MEDS: SODIUM BICARBONATE 8.4% 75 MEQ in SODIUM CHLORIDE 0.45 % 1,000 ML IV SCH ×2 (09:46→19:05)
[2018-12-22] MEDS ORDERED: ERTAPENEM SODIUM 500 MG in SODIUM CHLORIDE 0.9% 50 ML IV SCH (10:00)
--- NOTE | 2018-12-22 10:27 | Nephrology Progress Note ---
Date of Service December 22, 2018 Assessment & Plan (1) ADAM (acute kidney injury): Baseline creatinine 1.25 milligram/deciliter. Non oliguric. Hematuria improving. Creatinine improving. Remains in a negative fluid balance. Volume status acceptable. Will continue IV fluid with 1/2 NS + HCO3 @ 100 ml/hr will be continued. No additional changes at this time. Close prospective monitoring is necessary. There is no emergent indication for dialysis. Volume status and electrolytes are acceptable. Repeat metabolic profile will be repeated tomorrow AM. Medications are appropriately dosed for kidney function. (2) Renal mass, right: (3) Supratherapeutic INR: (4) Atrial fibrillation and flutter: (5) Hyponatremia: Subjective No acute events overnight. No fevers or chills. Marcel continues to deny pain. Urine has cleared significantly. Denies significant edema. I discussed the patient's condition with Dr. Hawkins this morning. CT cysto reviewed. Review of Systems Review of Systems: All systems reviewed & are unremarkable except as noted in HPI & below Physical Exam Constitutional: + morbidly obese; no acute distress Eyes: no scleral abnormality and no corneal abnormality ENMT: Mouth: no oral mucosal abnormality and oral mucous membranes not dry Neck: trachea midline and + tracheostomy present Respiratory: normal respiratory effort; no respiratory distress and not tachypneic Auscultation: lungs clear to auscultation bilaterally Cardiovascular: Heart Sounds: normal S1 and normal S2 Vessels: no JVD Extremities: + edema Gastrointestinal (Abdomen): Inspection/Auscultation: + abdomen distended and + abdominal edema Percussion/Palpation: abdomen nontender and no guarding Musculoskeletal: Extremities: no cyanosis and no clubbing Skin: normal turgor and + dry skin Neurologic: Motor/Sensory: no tremor and no asterixis Results & Data Vital Signs (Past 12 Hours) Vital Signs Temp Pulse Pulse Resp BP BP Pulse Ox 12/22/18 09:09 83 12/22/18 07:55 36.4 C L 90 24 153/71 H 94 12/22/18 07:10 71 16 94 12/22/18 04:25 36.6 C 87 20 140/60 93 12/22/18 01:48 36.8 C 83 18 149/61 H 93 12/22/18 00:50 36.5 C 81 16 143/60 H 94 12/22/18 00:00 89 12/21/18 23:50 36.7 C 77 18 120/54 L 94 12/21/18 23:20 36.6 C 66 16 155/64 H 94 12/21/18 23:05 36.7 C 84 16 110/63 93 12/21/18 22:49 36.6 C 84 16 127/58 L 94 12/21/18 22:34 36.7 C 76 18 147/62 H 96 Laboratory Results Laboratory Results - last 24 hr 12/20/18 12/21/18 12/21/18 12:11 09:30 09:30 WBC RBC Hgb Hct MCV MCH MCHC RDW Std Deviation RDW Coeff of Lexy Plt Count MPV Immature Gran % (Auto) Neut % (Auto) Lymph % (Auto) [place] % (Auto) Eos % (Auto) Baso % (Auto) Immature Gran # (Auto) Neut # (Auto) Lymph # (Auto) [place] # (Auto) Eos # (Auto) Baso # (Auto) Spherocytes Occasional PT INR Sodium 135 L Potassium 3.8 Chloride 99 Carbon Dioxide 21 Anion Gap 15.0 H BUN 128 H Creatinine 7.26 H* D Est Cr Clr Drug Dosing 17.2 Est GFR ( Amer) 8.5 Est GFR (Non-Af Amer) 7.3 BUN/Creatinine Ratio 17.6 Glucose 79 POC Glucose Calcium 7.9 L Phosphorus Magnesium Total Bilirubin Direct Bilirubin AST ALT Alkaline Phosphatase Total Protein Albumin Blood Type O Positive Blood Type Recheck Antibody Screen NEGATIVE Crossmatch See Detail 12/21/18 12/21/18 12/21/18 18:16 18:16 18:16 WBC 8.64 RBC 2.63 L Hgb 7.0 L Hct 21.4 L MCV 81.4 MCH 26.6 MCHC 32.7 RDW Std Deviation 52.5 H RDW Coeff of Lexy 17.7 H Plt Count 310 MPV 8.0 Immature Gran % (Auto) 1.0 Neut % (Auto) 81.1 Lymph % (Auto) 8.3 [place] % (Auto) 6.4 Eos % (Auto) 3.0 Baso % (Auto) 0.2 Immature Gran # (Auto) 0.09 H Neut # (Auto) 7.00 H Lymph # (Auto) 0.72 L [place] # (Auto) 0.55 Eos # (Auto) 0.26 Baso # (Auto) 0.02 Spherocytes Occasional PT 13.5 H INR 1.3 H Sodium 139 Potassium 3.5 Chloride 102 Carbon Dioxide 20 L Anion Gap 17.0 H BUN 122 H Creatinine 6.24 H* D Est Cr Clr Drug Dosing 20.0 Est GFR ( Amer) 10.2 Est GFR (Non-Af Amer) 8.8 BUN/Creatinine Ratio 19.7 Glucose 69 L POC Glucose Calcium 7.7 L Phosphorus 7.8 H Magnesium Total Bilirubin Direct Bilirubin AST ALT Alkaline Phosphatase Total Protein Albumin 1.5 L Blood Type Blood Type Recheck Antibody Screen Crossmatch 12/21/18 12/21/18 12/22/18 18:16 21:11 06:05 WBC 9.63 RBC 3.01 L Hgb 8.5 L Hct 25.0 L MCV 83.1 MCH 28.2 MCHC 34.0 RDW Std Deviation 52.9 H RDW Coeff of Lexy 17.4 H Plt Count 291 MPV 7.9 Immature Gran % (Auto) 1.3 Neut % (Auto) 77.1 Lymph % (Auto) 8.3 [place] % (Auto) 8.3 Eos % (Auto) 4.7 Baso % (Auto) 0.3 Immature Gran # (Auto) 0.13 H Neut # (Auto) 7.42 H Lymph # (Auto) 0.80 L [place] # (Auto) 0.80 H Eos # (Auto) 0.45 Baso # (Auto) 0.03 Spherocytes PT INR Sodium Potassium Chloride Carbon Dioxide Anion Gap BUN Creatinine Est Cr Clr Drug Dosing Est GFR ( Amer) Est GFR (Non-Af Amer) BUN/Creatinine Ratio Glucose POC Glucose 100 H Calcium Phosphorus Magnesium Total Bilirubin Direct Bilirubin AST ALT Alkaline Phosphatase Total Protein Albumin Blood Type Blood Type Recheck O Positive Antibody Screen Crossmatch 12/22/18 12/22/18 06:05 06:05 WBC RBC Hgb Hct MCV MCH MCHC RDW Std Deviation RDW Coeff of Lexy Plt Count MPV Immature Gran % (Auto) Neut % (Auto) Lymph % (Auto) [place] % (Auto) Eos % (Auto) Baso % (Auto) Immature Gran # (Auto) Neut # (Auto) Lymph # (Auto) [place] # (Auto) Eos # (Auto) Baso # (Auto) Spherocytes PT 12.7 H INR 1.3 H Sodium 140 Potassium 3.3 L Chloride 104 Carbon Dioxide 22 Anion Gap 13.0 H BUN 119 H Creatinine 4.89 H* D Est Cr Clr Drug Dosing 25.7 Est GFR ( Amer) 13.7 Est GFR (Non-Af Amer) 11.8 BUN/Creatinine Ratio 24.3 H Glucose 74 POC Glucose Calcium 7.5 L Phosphorus 6.5 H Magnesium 2.3 Total Bilirubin 0.7 Direct Bilirubin 0.2 AST 14 L ALT 12 Alkaline Phosphatase 78 Total Protein 6.9 Albumin 1.5 L Blood Type Blood Type Recheck Antibody Screen Crossmatch PG Care Time/CCT Total # of Minutes Spent Total Time Spent with Patient: Total time spent is greater than 50% in coordination of care (as documented) at patient's floor/unit and/or counseling patient:
--- NOTE | 2018-12-22 11:09 | Infectious Disease Consult ---
Date of Consultation December 22, 2018 Assessment & Plan (1) UTI (urinary tract infection) due to urinary indwelling Davey catheter: unclear significance of urine culture, recently finished course of zerbaxa. stenotrophonmonas only sensitive to bactrim - will avoid this at this point due to creat still elevated. will repeat ua and culture now that hematuria has resolved. suspected colonizatoin, would not rx at this time unless repeat +. History of Present Illness Attending Physician: Oksana Mullins MD pt admitted from [facility] with gross hematuria, davey bulb in urethra. creat 8.1. urology and nephro following, flushing davey, creat improving. ct abd revealed previously noted fluid collection - suspected old blood to be improving. UA in ER >30 wbc +1 bacteria, culture grew stenotrophomonas and c. albicans. he is currently on ertapnem. creat today 4.8. Spoke with nursing, still with min blood clots from bladder but ovreall urine much improved, no hematuria noted, davey bag with yellow urine. no f/c. no abd pain, no n/v/d. toleating abx. denies cp, sob, cough. trach c/d/i. wbc 9.6 afebrile since admission. Allergies Allergy/AdvReac Type Severity Reaction Status Date / Time cefepime Allergy Intermediate RASH Verified 11/29/18 10:01 latex Allergy Intermediate DERMITITIS Verified 11/29/18 10:01 aztreonam Allergy Mild RASH Verified 11/29/18 10:01 Home Medications Home Medications Medication Instructions Recorded Confirmed Type Calmoseptine 1 applic TOPICAL Q6 PRN 12/30/17 12/20/18 History Fleet Enema 118 ml ND Q24W PRN 12/30/17 12/20/18 History acetaminophen 650 mg PO Q6 PRN 12/30/17 12/20/18 History bisacodyl 10 mg ND Q24W PRN 12/30/17 12/20/18 History chlorhexidine gluconate 15 ml PO BID 12/30/17 12/20/18 History ferrous sulfate 325 mg PO QAM 12/30/17 12/20/18 History magnesium hydroxide [Milk of 30 ml PO HS PRN 12/30/17 12/20/18 History Magnesia] nystatin 1 applic TOPICAL DAILY 12/30/17 12/20/18 History pantoprazole 40 mg PO QAM 12/30/17 12/20/18 History simvastatin 10 mg PO QAM 12/30/17 12/20/18 History aspirin 81 mg PO QAM 08/25/18 12/20/18 History levothyroxine 100 mcg PO QAM 11/29/18 12/20/18 History furosemide 40 mg PO BID #0 tab 12/08/18 12/20/18 Rx ipratropium-albuterol 3 ml NEB QID #1 box 12/08/18 12/20/18 Rx warfarin [Coumadin] 2.5 mg PO DAILY@1600 #30 tab 12/08/18 12/20/18 Rx Probiotic 1 cap PO BID 12/20/18 12/20/18 History amoxicillin 500 mg PO TID PRN 12/20/18 12/20/18 History ascorbic acid (vitamin C) 500 mg PO BID 12/20/18 12/20/18 History guaifenesin 1,200 mg PO BID 12/20/18 12/20/18 History metoprolol tartrate 25 mg PO QAM 12/20/18 12/20/18 History multivitamin with minerals 1 tab PO QAM 12/20/18 12/20/18 History [Multiple Vitamin-Minerals] sertraline 100 mg PO QAM 12/20/18 12/20/18 History Patient History Medical History Hyponatremia Gait disorder History of group B Streptococcus (GBS) infection Acute respiratory failure with hypoxia Pneumonia (Acute) Acute renal failure (Acute) Heart failure, systolic, due to idiopathic cardiomyopathy (Chronic) "echo 12/01/15 - EF 35-39%, abnormal diastolic dysfunction" KEARA (obstructive sleep apnea) (Chronic) Venous insufficiency (Chronic) Hx MRSA infection (Chronic) "02/2016 in sputum" Obesity hypoventilation syndrome Atrial fibrillation and flutter (Chronic) Gross hematuria Pacemaker (Acute) 2011 - SSS Tracheostomy tube present (Acute) 2015 - 2/ obesity hypoventilation syndrome Ventral hernia (Acute) Anemia Asthma Atrial fibrillation on warfarin BPH (benign prostatic hyperplasia) 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 catheter Bacteremia due to group B Streptococcus 09/2017 - requiring indefinite oral suppressive antibiotic therapy Cardiomyopathy Chronic edema BLLE Chronic indwelling Davey catheter Chronic respiratory failure Chronic venous stasis Congestive heart failure Generalized weakness History of DVT (deep vein thrombosis) Hyperlipidemia Indwelling Davey catheter present Lymphedema Major depressive disorder Morbid obesity Obesity hypoventilation syndrome On home oxygen therapy Recurrent UTI Sleep apnea Surgical History Status post placement of cardiac pacemaker H/O tracheostomy (Chronic) History of bronchoscopy w/ trach change 01/2018 [facility] History of cholecystectomy History of hernia repair Family History Other No significant family history Social History Preferred Language: Maori Communication Ability: Effective Clinical Operations Leader Required: No Beliefs That Will Affect Care: None marital status: Current Living Situation: Assisted Current Living Situation Comment: resident at [facility] Other Information That Helps Us Care for You: No Feels Safe at Home: Yes Safety Concerns: Feels Safe At This Time Smoking Status: Never smoker Hx Alcohol Use: No Hx Substance Use: No Review of Systems Review of Systems: All systems reviewed & are unremarkable except as noted in HPI & below Physical Exam Constitutional: WD/WN, vitals as above Eyes: PERRL, conjunctivae normal, anicteric sclerae ENMT: external ear and nose normal, oropharynx normal Neck: normal visual inspection Respiratory: normal respiratory effort, lungs clear to auscultation Cardiovascular: RRR, no murmur, no edema Gastrointestinal (Abdomen): normal bowel sounds, soft, nontender, no hepatosplenomegaly Musculoskeletal: no cyanosis or clubbing, extremities motor strength 5/5 Skin: no rashes, warm and dry Psychiatric: A+Ox3, euthymic affect Results & Data Vital Signs (Past 12 Hours) Vital Signs Temp Pulse Pulse Resp BP BP Pulse Ox 12/22/18 10:48 36.7 C 80 20 132/66 92 12/22/18 09:09 83 12/22/18 07:55 36.4 C L 90 24 153/71 H 94 12/22/18 07:10 71 16 94 12/22/18 04:25 36.6 C 87 20 140/60 93 12/22/18 01:48 36.8 C 83 18 149/61 H 93 12/22/18 00:50 36.5 C 81 16 143/60 H 94 12/22/18 00:00 89 12/21/18 23:50 36.7 C 77 18 120/54 L 94 12/21/18 23:20 36.6 C 66 16 155/64 H 94 12/21/18 23:05 36.7 C 84 16 110/63 93 Laboratory Results Microbiology 12/20/18 21:30 Urine,Straight Cath Urine Culture - Final Julia albicans 12/20/18 16:30 Urine,Clean Catch Urine Culture - Final Stenotrophomonas maltophilia PG Care Time/CCT Total # of Minutes Spent Total Time Spent with Patient: Total time spent is greater than 50% in coordination of care (as documented) at patient's floor/unit and/or counseling patient:
--- NOTE | 2018-12-22 12:20 | Hospitalist Progress Note ---
Date of Service December 22, 2018 Assessment & Plan (1) ADAM (acute kidney injury): Presented with profound ADAM with car rental service attendant 8.4 on admission, secondary to obstruction--> Fitch bulb was in urethra and causing trauma in setting of INR>10 with gross hematuria Post-obstructive ADAM with ATN Appreciate urgent Urologic management--> removed Fitch and had large amount of bloody and purulent urine drain out--> 3L total Replaced with Fitch 12/20 and RN continues with hand irrigation for hematuria whi ch is now resolved -continues to have large amount of urine output -with AG met acidosis from ADAM, ABG with acidosis all now resolved -car rental service attendant continues to improve with Bicarb IVFs and PRBC transfusion--> now down to 4.8 Serum bicarb improved up to 22 -continue IVFs with bicarb as per Nephrology Appreciate Nephrology management, no urgent HD needed at this time Appreciate Urology management -if needed intermittent HD, would need transfer to another facility for the weekend there is no urgent HD availability -follow BMP serially -avoid nephrotoxins -continue tele monitoring (2) Gross hematuria: With large amount of hematuria secondary to Fitch trauma in setting of INR>10 as above -finally has resolved after much blood loss -INR now remains low and stable at 1.3 after FFP and Vit K multiple doses -with acute blood loss anemia requiring 5 units PRBCs thus far and hgb down again this afternoon to 7.7 -transfuse another 2 units PRBCs -follow Hgb -appreciate Urology management -continue hand irrigation of Fitch as per Urology as needed (3) UTI (urinary tract infection) due to urinary indwelling Fitch catheter: With UTI on admission secondary to profound obstruction as above. Purulent urine noted to drain out after Fitch replaced by Urol -given h/o resistant organisms, was placed initially on Ertapenem, however Ur cx growing Stenotrophomonas resistant to Ceftazidime and Levaquin, but sensitive to Bactrim Repeat culture also growing Julia -consult ID ID thinks Stenotroph is a colonizer and to not treat, recommends repeating urine culture On admission, did have leukocytosis, no fever, but was noted to have purulent urine by Urology -will dc ertapenem for now as this will not work for Steno. -follow repeat Ur cx -no need to treat Julia albicans either (4) Anemia: Acute blood loss anemia in setting of chronic disease anemia and Fe- deficiency anemia With microcytic anemia and Fe deficiency Blood loss from gross hematuria and also with large hematoma in RUE from straining to pull himself upright Hematuria now resolved - Baseline Hgb is 9-10 - received 5 units PRBCs and hgb still down again only 7.7 this evening INR remains low at 1.3 -give another 2 units PRBCs -follow CBC in AM -BP has been ok, restarting metoprolol for VT (5) Supratherapeutic INR: - INR of 10.4 on admission - Received Vit K 10 mg IV in the ER, received FFP 2 units, then 2 more doses of Vit K after that on subsequent days INR finally down at 1.3 - continue to hold coumadin - Follow INR (6) Chronic indwelling Fitch catheter: Since 2016, has been bed-bound since that time - Fitch was exchanged on 12/20 as above (7) Hyponatremia: - Na down 131 upon admission, secondary to ADAM Now resolved, at 140 -follow BMP (8) Heart failure, systolic, due to idiopathic cardiomyopathy: - chronic systolic CHF -last ECHO in 2016 showing LVEF of 40% Now with normal EF but with moderately reduced right sided RV function likely secondary to OHS and KEARA - continue holding lasix and will restart metoprolol as per Cardiology today--> of note, he is supposed to have Toprol XL 25mg daily on his home med list, but is on there as metoprolol tartrate 25mg po qday--> will have to sort out prior to discharge -for now, restart metoprolol 25mg po bid of tartrate (9) Atrial fibrillation and flutter: - history of such currently in NSR, paced rhythm, frequent PVCs and nonsustained VT -held metoprolol due to acute blood loss and ongoing bleeding but BPs now stable -continue tele monitoring -is on coumadin typically but being held as above -restart metoprolol 25mg bid -Appreciate Cardio consult (10) KEARA (obstructive sleep apnea): - s/p trach placement 2015 - previous noncompliance with CPAP for KEARA (11) Obesity hypoventilation syndrome: - noted, with trach in place (12) H/O tracheostomy: - spaced in 2015 following intubation and mechanical ventilation for respiratory failure - noncompliance with CPAP for KEARA and the trach was placed as a result - Was changed during last admission on 12/02/18 (13) Abnormal CT of the abdomen: With a h/o numerous extraperitoneal fluid collections with some up to 5cm in size, ? if these areas were microabscesses vs small hematomas vs a combination of the two. Consider old hematoma from even previous admission as well as possible new ones today with INR being significantly supratherapeutic again. Repeat CT 12/21 with decreased size of collections -follow along with imaging Cystogram here without evidence of bladder perforation (14) Gait disorder: - Has not been ambulatory for 2 years - PT/OT consults (15) Renal mass, right: - Hx of right renal mass, unclear if ever diagnosed with cancer (16) Depression: - Continue sertraline 100 mg daily (17) Hypothyroidism: - Continue levothyroxine 100 mcg daily TSH here is 3.48 (18) Morbid obesity with BMI of 60.0-69.9, adult: - BMI of 56.6 this time, was over 60 during last admission - HH/DM diet (19) Venous insufficiency: - Chronic, wound consult for ulcerations on the R calf - Lymphedema at baseline (20) Lymphedema: - Wound consulted - appreciate (21) Dyslipidemia: - Cont statin therapy (22) Severe protein-calorie malnutrition: Albumin severely low at 1.5 - appreciate Dietary recommendations--> add supplement when car rental service attendant comes down -add nephrocaps for improved wound healing -follow labs, BMP, Phos, albumin (23) Asthma: - Hx of such, continue nebs QID as per home meds, no acute issues but is requiring 40% FiO@ via trach collar (24) Nonsustained ventricular tachycardia: frequent PVCs and short runs of VT -restart metoprolol follow on tele (25) Hematoma: RUE, from straining -elevated arm for swelling, ice (26) DVT prophylaxis: - no chemical ppx ordered with supratherapeutic INR, gross hematuria - teds/scds not able to be placed due to lymphedema and chronic wounds Dispo: From [facility], PT/OT consults, remain on PCU, prognosis guarded FULL CODE Subjective Hematuria has cleared up . His right arm pain from yesterday has now developed into a large hematoma mostly on his left forearm and triceps. Denies SOB or CP. Denies abd pain, is eating. reports the last time he had a DVT was many years ago. Tele with NSR with bigeminy and frequent PVCs, one 11 beat run VT Discussed his case with Cardiology Review of Systems Review of Systems: All systems reviewed & are unremarkable except as noted in HPI & below Physical Exam Constitutional: WD/WN, vitals as above + morbidly obese Eyes: + anicteric sclerae Neck: + tracheostomy present Respiratory: normal respiratory effort Auscultation: + diminished lung sounds (bilat bases); no wheezes Cardiovascular: Rate/Rhythm: regular rate and regular rhythm Heart Sounds: no murmur Extremities: + edema (3+ pitting edema to thighs bilat) Gastrointestinal (Abdomen): normal bowel sounds, soft, nontender, no hepatosplenomegaly (morbidly obese abdomen) Musculoskeletal: Extremities: + extremities abnormal to inspection (RUE with large amount of edema throughout, with hematoma,purple ecchymosis ), no cyanosis and no clubbing Skin: + wound (wound posterior leg) Neurologic: moves all extremities and awake; no focal motor deficits Psychiatric: A+Ox3, euthymic affect Genitourinary: Fitch cath with clear yellow urine Results & Data Vital Signs (Past 12 Hours) Vital Signs Temp Pulse Pulse Resp BP BP Pulse Ox 12/22/18 11:25 78 20 91 12/22/18 10:48 36.7 C 80 20 132/66 92 12/22/18 09:09 83 12/22/18 07:55 36.4 C L 90 24 153/71 H 94 12/22/18 07:10 71 16 94 12/22/18 04:25 36.6 C 87 20 140/60 93 12/22/18 01:48 36.8 C 83 18 149/61 H 93 12/22/18 00:50 36.5 C 81 16 143/60 H 94 Laboratory Results 12/23/18 12/23/18 12/22/18 Range/Units 05:33 05:33 15:44 WBC 10.29 (4.8-10.8) K/uL RBC 3.06 L (4.7-6.1) M/uL Hgb 8.4 L (14.0-18.0) g/dL Hct 25.9 L (42-52) % MCV 84.6 (80-100) fL MCH 27.5 (25-34) pg MCHC 32.4 (32-36) g/dL RDW Std Deviation 54.4 H (36.4-46.3) fL RDW Coeff of Lexy 17.6 H (11.5-14.5) % Plt Count 318 (130-400) K/uL MPV 8.1 (7.4-10.4) fL Immature Gran % (Auto) % Neut % (Auto) % Lymph % (Auto) % [place] % (Auto) % Eos % (Auto) % Baso % (Auto) % Immature Gran # (Auto) (0.00-0.02) K/uL Neut # (Auto) (1.4-6.5) K/uL Lymph # (Auto) (1.2-3.4) K/uL [place] # (Auto) (0.11-0.59) K/uL Eos # (Auto) (0-0.5) K/uL Baso # (Auto) (0-0.2) K/uL Polychromasia Basophilic Stippling Sodium 143 140 (136-145) mmol/L Potassium 3.1 L 3.2 L (3.5-5.1) mmol/L Chloride 106 105 (98-107) mmol/L Carbon Dioxide 29 24 (21-32) mmol/L Anion Gap 8.0 11.0 (3-11) BUN 100 H 110 H (7-18) mg/dl Creatinine 3.34 H D 4.03 H D (0.6-1.4) mg/dl Est Cr Clr Drug Dosing 37.6 31.1 ml/min Est GFR ( Amer) 21.7 17.3 Est GFR (Non-Af Amer) 18.7 14.9 BUN/Creatinine Ratio 29.8 H 27.2 H (10-20) Glucose 89 98 (70-99) mg/dl Calcium 8.0 L 7.5 L (8.5-10.1) mg/dl Phosphorus 5.1 H D (2.5-4.9) mg/dl Albumin 1.5 L (3.4-5.0) gm/dl Urine Color Urine Appearance (Clear) Urine pH (4.5-7.5) Ur Specific [place] (1.000-1.030) Urine Protein (Negative) Urine Glucose (UA) (Negative) Urine Ketones (Negative) Urine Blood (Negative) Urine Nitrite (Negative) Urine Bilirubin (Negative) Urine Urobilinogen (Negative) Ur Leukocyte Esterase (Negative) Urine RBC (0-4) /hpf Urine WBC (0-5) /hpf Ur Epithelial Cells (0-5) /lpf Calcium Oxalate Crystal (None Prsent) Urine Bacteria (Negative) WBC Casts (0) /lpf Urine Yeast (None Prsent) Blood Type Antibody Screen Crossmatch 12/22/18 12/22/18 12/20/18 Range/Units 15:44 14:45 12:11 WBC 8.35 (4.8-10.8) K/uL RBC 2.86 L (4.7-6.1) M/uL Hgb 7.7 L (14.0-18.0) g/dL Hct 23.6 L (42-52) % MCV 82.5 (80-100) fL MCH 26.9 (25-34) pg MCHC 32.6 (32-36) g/dL RDW Std Deviation 52.9 H (36.4-46.3) fL RDW Coeff of Lexy 17.3 H (11.5-14.5) % Plt Count 289 (130-400) K/uL MPV 7.7 (7.4-10.4) fL Immature Gran % (Auto) 1.2 % Neut % (Auto) 75.3 % Lymph % (Auto) 9.1 % [place] % (Auto) 9.1 % Eos % (Auto) 5.1 % Baso % (Auto) 0.2 % Immature Gran # (Auto) 0.10 H (0.00-0.02) K/uL Neut # (Auto) 6.28 (1.4-6.5) K/uL Lymph # (Auto) 0.76 L (1.2-3.4) K/uL [place] # (Auto) 0.76 H (0.11-0.59) K/uL Eos # (Auto) 0.43 (0-0.5) K/uL Baso # (Auto) 0.02 (0-0.2) K/uL Polychromasia 1+ Basophilic Stippling 1+ Sodium (136-145) mmol/L Potassium (3.5-5.1) mmol/L Chloride (98-107) mmol/L Carbon Dioxide (21-32) mmol/L Anion Gap (3-11) BUN (7-18) mg/dl Creatinine (0.6-1.4) mg/dl Est Cr Clr Drug Dosing ml/min Est GFR ( Amer) Est GFR (Non-Af Amer) BUN/Creatinine Ratio (10-20) Glucose (70-99) mg/dl Calcium (8.5-10.1) mg/dl Phosphorus (2.5-4.9) mg/dl Albumin (3.4-5.0) gm/dl Urine Color [place] Urine Appearance Cloudy A (Clear) Urine pH 5.0 (4.5-7.5) Ur Specific [place] 1.020 (1.000-1.030) Urine Protein 1+ H (Negative) Urine Glucose (UA) Negative (Negative) Urine Ketones Negative (Negative) Urine Blood 3+ H (Negative) Urine Nitrite Negative (Negative) Urine Bilirubin Negative (Negative) Urine Urobilinogen Negative (Negative) Ur Leukocyte Esterase 2+ H (Negative) Urine RBC >30 H (0-4) /hpf Urine WBC >30 H (0-5) /hpf Ur Epithelial Cells 0-5 (0-5) /lpf Calcium Oxalate Crystal Present A (None Prsent) Urine Bacteria 2+ H (Negative) WBC Casts 1-5 H (0) /lpf Urine Yeast Budding w/ Hyphae A (None Prsent) Blood Type O Positive Antibody Screen NEGATIVE Crossmatch See Detail PG Care Time/CCT Total # of Minutes Spent Total Time Spent with Patient: Total time spent is greater than 50% in coordination of care (as documented) at patient's floor/unit and/or counseling patient: (1) Anemia Anemia type: other cause (2) Depression Depression Type: other depression Qualified Code(s): F32.89 - Other specified depressive episodes (3) Hypothyroidism Hypothyroidism type: acquired Qualified Code(s): E03.9 - Hypothyroidism, unspecified (4) Asthma Asthma complication type: unspecified Asthma persistence: unspecified Asthma severity: unspecified severity Qualified Code(s): J45.909 - Unspecified asthma, uncomplicated
[2018-12-22] MEDS ORDERED: POTASSIUM CHLORIDE 20 MEQ TABCR PO STA (13:18)
[2018-12-22 15:51] LABS: Appearance Urine Cloudy (Clear); Bilirubin Urine Negative (Negative); Blood Urine 3+ (Negative); Color Urine Amber; Glucose Urine UA Negative (Negative); Ketones Urine Negative (Negative); Leukocyte Esterase Urine 2+ (Negative); Nitrite Urine Negative (Negative); Protein Urine 1+ (Negative); Urobilinogen Urine Negative (Negative)
[2018-12-22 15:55] LABS: Calcium Oxalate Crystals Urine Present (None Prsent); Epithelial Cell Urine 0-5 /lpf (0-5)
[2018-12-22 15:56] LABS: Bacteria Urine 2+ (Negative); RBC Urine >30 /hpf (0-4); WBC Urine >30 /hpf (0-5)
[2018-12-22 15:59] LABS: Basophils # (auto) 0.02 K/uL (0-0.2); Basophils % (auto) 0.2 %; Eosinophils # (auto) 0.43 K/uL (0-0.5); Eosinophils % (auto) 5.1 %; Hematocrit (blood only) 23.6 % (42-52); Hemoglobin 7.7 g/dL (14.0-18.0); Immature Granulocytes % (auto) 1.2 %; Lymphocytes # (auto) 0.76 K/uL (1.2-3.4); Lymphocytes % (auto) 9.1 %; Mean Corpuscular Hemoglobin 26.9 pg (25-34); Mean Corpuscular Hgb Conc 32.6 g/dL (32-36); Mean Corpuscular Volume 82.5 fL (80-100); Mean Platelet Volume 7.7 fL (7.4-10.4); Monocytes # (auto) 0.76 K/uL (0.11-0.59); Monocytes % (auto) 9.1 %; Neutrophils # (auto) 6.28 K/uL (1.4-6.5); Neutrophils % (auto) 75.3 %; Platelet Count 289 K/uL (130-400); RDW Coefficient of Variation 17.3 % (11.5-14.5); RDW Standard Deviation 52.9 fL (36.4-46.3); Red Blood Count 2.86 M/uL (4.7-6.1); White Blood Count 8.35 K/uL (4.8-10.8)
[2018-12-22 16:16] LABS: BUN Creatinine Ratio 27.2 (10-20); Calcium 7.5 mg/dl (8.5-10.1); Creatinine Clr Calc Pharmacy 31.1 ml/min; Est GFR (African American) 17.3; Est GFR (Non-African American) 14.9; Potassium 3.2 mmol/L (3.5-5.1)
[2018-12-22] MEDS ORDERED: SODIUM CHLORIDE 0.9% 250 ML IV PRN (16:19)
[2018-12-22 16:40] LABS: Basophilic Stippling 1+; Polychromasia 1+
[2018-12-22] MEDS: METOPROLOL TARTRATE 25 MG TAB PO SCH (19:28)
[2018-12-22] MEDS: ACETAMINOPHEN 325 MG TAB PO PRN (21:27)
--- NOTE | 2018-12-22 21:29 | Consultation Report ---
DATE OF CONSULTATION: 12/22/2018 CONSULTATION REQUESTED BY: Dr. Mullins. REASON FOR CONSULTATION: Frequent ventricular ectopy. HISTORY OF PRESENT ILLNESS: Mr. Gusman is a very medically complex 63-year-old gentleman who presented to [facility] Emergency Department on 12/20/2018 from his detention with reports of gross hematuria for 3 days. He was then found to be severely anemic along with a coagulopathy. His INR was reversed. He received packed red blood cells and Urology was consulted to deal with issues with his catheter. At that time his metoprolol was not continued. He was admitted to telemetry. He was seen by Urology, Nephrology and Infectious Disease and on 12/22/2018 was found to have frequent ventricular ectopy on telemetry including ventricular bigeminy and Cardiology was consulted. Currently, the patient states he is feeling well. His verbal communication is limited by the tracheostomy; however, he specifically denies experiencing any cardiac complaints of chest pain, shortness of breath, palpitations, lightheadedness, dizziness, or syncope. Of note, the patient has a very complex cardiac history, unfortunately, which he has not followed up with Cardiology since 06/08/2017 when he was seen at [facility] in [place], multiple re-appointments were hence canceled. PAST SURGICAL HISTORY: 1. Tracheostomy. 2. Hernia repair. 3. Dual chamber permanent pacemaker placement. MEDICAL ILLNESSES: 1. Morbid obesity. 2. Obesity hypoventilation. 3. Biventricular LV systolic EF as low as 20% by echocardiogram 03/2017. 4. Sick sinus syndrome, status post permanent pacemaker placement. 5. Paroxysmal atrial fibrillation on chronic Coumadin and amiodarone. 6. History of deep venous thrombosis, on chronic Coumadin. 7. Chronic lymphedema. 8. Hypothyroidism. 9. Obstructive sleep apnea. 10. Recurrent bacterial infections. 11. Chronic indwelling Fitch catheter. 12. Ambulatory dysfunction where the patient is bedbound. 13. Paroxysmal atrial flutter. FAMILY HISTORY: Noncontributory. SOCIAL HISTORY: The patient denies any alcohol, tobacco or recreational drug use. He is currently residing at a local detention. REVIEW OF SYSTEMS: As per HPI, all other review of systems reviewed and negative at this time. ALLERGIES: 1. CEFEPIME. 2. LATEX. 3. AZTREONAM. MEDICATIONS CURRENTLY: 1. Simvastatin 10 mg daily. 2. Coumadin on hold. 3. Zoloft. 4. Protonix. 5. Statins. 6. Levothyroxine. 7. Aspirin discontinued. PHYSICAL EXAMINATION: VITALS: Temperature 36.7, pulse 89, respiratory rate 12, blood pressure 132/66, currently saturating 93% on 4 liters via trach collar. GENERAL: Awake, alert, and oriented x3, no acute distress. Morbidly obese. HEENT: Normocephalic, atraumatic. Pupils equal, round, reactive to light and accommodation. Extraocular muscles intact. Anicteric sclerae. Moist mucous membranes. Poor dentition. NECK: Tracheostomy in place, trach collar in place. Unable to appreciate JVD or bruits. CARDIOVASCULAR: Regular, but distant, unable to appreciate murmurs, rubs or gallops. PULMONARY: Poor breath sounds bilaterally, but clear. No rales, rhonchi, or wheezing. ABDOMEN: Bowel sounds x4, soft. No rebound, guarding, tenderness. No organomegaly. EXTREMITIES: +2 bilateral lower extremity nonpitting edema. +1 pedal pulses bilaterally. SKIN: Warm and dry. TEST RESULTS: Review of telemetry monitoring shows frequent ventricular ectopy including ventricular bigeminy with underlying sinus rhythm. No sustained ventricular tachycardia. A 2D echocardiogram was read as, compared to previous echocardiogram of 03/29/2017, LV systolic function has normalized. Normal LV chamber size with moderate concentric LVH, normal LV systolic function, EF 55-60%, abnormal septal wall motion consistent with RV pressure/volume overload, otherwise normal wall motion, moderately dilated RV chamber size with moderately reduced RV systolic function, poorly visualized valvular structures without significant stenosis or regurgitation by Doppler. IMPRESSION: 1. Frequent ventricular ectopy, asymptomatic. 2. History of complex ventricular arrhythmias, resolved. 3. History of nonischemic cardiomyopathy, resolved. 4. Chronic right ventricular systolic failure secondary to obesity hypoventilation, obstructive sleep apnea. 5. Morbid obesity. 6. Chronic lymphedema. 7. Recent severe hematuria with the need for reversal of anticoagulation. 8. Paroxysmal atrial fibrillation and flutter, previously on chronic amiodarone and Coumadin therapy. Amiodarone discontinued at some point unclear when. 9. Anemia. 10. Acute kidney injury. 11. Hyponatremia. 12. Nonambulatory. RECOMMENDATIONS: It was my pleasure to see Mr. Gusman in consultation today. From a cardiac standpoint, his LV systolic function has actually normalized for which I actually do not have a clear explanation. His RV systolic function, while limited in views on echocardiogram, does appear to be significantly reduced, which would coincide with his diagnosis of obesity hypoventilation and obstructive sleep apnea. In terms of his ventricular ectopy, it appears that his beta henrry has been held since admission and I will restart it. I will actually start Lopressor 25 mg b.i.d. Otherwise, no further cardiac intervention or testing is necessary at this time. The patient should reestablish with [facility] in [place] given his complex cardiac history upon discharge.
[2018-12-23] MEDS: ALBUT/IPRATROP 3MG/0.5MG NEB 3 ML VIAL NEB SCH ×4 (05:42→19:17)
[2018-12-23] MEDS: LEVOTHYROXINE SODIUM 100 MCG TABLET PO SCH (05:59)
[2018-12-23] MEDS: SODIUM BICARBONATE 8.4% 75 MEQ in SODIUM CHLORIDE 0.45 % 1,000 ML IV SCH (06:00)
[2018-12-23 06:13] LABS: Hematocrit (blood only) 25.9 % (42-52); Hemoglobin 8.4 g/dL (14.0-18.0); Mean Corpuscular Hemoglobin 27.5 pg (25-34); Mean Corpuscular Hgb Conc 32.4 g/dL (32-36); Mean Corpuscular Volume 84.6 fL (80-100); Mean Platelet Volume 8.1 fL (7.4-10.4); Platelet Count 318 K/uL (130-400); RDW Coefficient of Variation 17.6 % (11.5-14.5); RDW Standard Deviation 54.4 fL (36.4-46.3); Red Blood Count 3.06 M/uL (4.7-6.1); White Blood Count 10.29 K/uL (4.8-10.8)
[2018-12-23 06:35] LABS: Albumin Level 1.5 gm/dl (3.4-5.0); BUN Creatinine Ratio 29.8 (10-20); Creatinine Clr Calc Pharmacy 37.6 ml/min; Est GFR (African American) 21.7; Est GFR (Non-African American) 18.7; Potassium 3.1 mmol/L (3.5-5.1)
[2018-12-23 06:41] LABS: Phosphorus 5.1 mg/dl (2.5-4.9)
[2018-12-23] MEDS: PANTOprazole 40 MG TAB PO SCH (08:13)
[2018-12-23] MEDS: SIMVASTATIN 10 MG TAB PO SCH (08:13)
[2018-12-23] MEDS: CHLORHEXIDINE GLUCONATE 0.12% 480 ML MT SCH ×2 (08:14→21:07)
[2018-12-23] MEDS: SERTRALINE HCL 50 MG TABLET PO SCH (08:14)
[2018-12-23] MEDS: NEPHROCAPS PO SCH (08:15)
[2018-12-23] MEDS: FERROUS SULFATE 325 MG TAB PO SCH (08:15)
[2018-12-23] MEDS: METOPROLOL TARTRATE 25 MG TAB PO SCH ×2 (08:16→16:53)
[2018-12-23] MEDS: NYSTATIN POWDER 15GM BTL EXT SCH (08:16)
[2018-12-23] MEDS: guaiFENesin 600 MG TABCR PO SCH ×2 (08:17→21:07)
--- NOTE | 2018-12-23 10:22 | Nephrology Progress Note ---
Date of Service December 23, 2018 Assessment & Plan (1) ADAM (acute kidney injury): Baseline creatinine 1.25 milligram/deciliter. Non oliguric. Hematuria significantly improved. Creatinine also continues to improve Positive fluid balance x 24 hours. Urine output improved. Will hold IVF. Volume status acceptable. No additional changes at this time. Close prospective monitoring is necessary. Volume status and electrolytes are acceptable. Repeat metabolic profile will be repeated tomorrow AM. Medications are appropriately dosed for kidney function. 40 mEq KCl provided for hypokalemia. Will recheck with Mg+ this afternoon. (2) Renal mass, right: (3) Supratherapeutic INR: (4) Atrial fibrillation and flutter: (5) Hyponatremia: Subjective No acute events overnight. No fevers or chills. Marcel continues to deny pain. Urine has cleared significantly. I discussed the patient's condition with Dr. Tan this morning. Review of Systems Review of Systems: All systems reviewed & are unremarkable except as noted in HPI & below Physical Exam Constitutional: + morbidly obese; no acute distress Eyes: no scleral abnormality and no corneal abnormality ENMT: Mouth: no oral mucosal abnormality and oral mucous membranes not dry Neck: trachea midline and + tracheostomy present Respiratory: normal respiratory effort; no respiratory distress and not tachypneic Auscultation: lungs clear to auscultation bilaterally Cardiovascular: Heart Sounds: normal S1 and normal S2 Vessels: no JVD Extremities: + edema Gastrointestinal (Abdomen): Inspection/Auscultation: + abdomen distended and + abdominal edema Percussion/Palpation: abdomen nontender and no guarding Musculoskeletal: Extremities: no cyanosis and no clubbing Skin: normal turgor and + dry skin Neurologic: Motor/Sensory: no tremor and no asterixis Genitourinary: Fitch with light tea colored urine Results & Data Vital Signs (Past 12 Hours) Vital Signs Temp Pulse Pulse Pulse Resp BP BP 12/23/18 07:26 36.5 C 84 18 140/80 12/23/18 05:44 94 H 20 12/23/18 03:30 36.5 C 80 20 125/77 12/23/18 00:20 36.7 C 85 20 118/50 L 12/22/18 23:55 92 H 12/22/18 23:24 36.7 C 90 20 133/59 L 12/22/18 22:24 36.6 C 75 118/73 Pulse Ox 12/23/18 07:26 94 12/23/18 05:44 92 12/23/18 03:30 90 12/23/18 00:20 90 12/22/18 23:55 12/22/18 23:24 90 12/22/18 22:24 PG Care Time/CCT Total # of Minutes Spent Total Time Spent with Patient: Total time spent is greater than 50% in coordination of care (as documented) at patient's floor/unit and/or counseling patient:
[2018-12-23] MEDS ORDERED: POTASSIUM CHLORIDE 20 MEQ TABCR PO STA ×2 (10:24→23:37)
--- NOTE | 2018-12-23 10:45 | Urology Progress Note ---
Date of Service December 23, 2018 Assessment & Plan (1) Gross hematuria: Davey catheter trauma No current hematuria, tolerating the catheter well Keep cath in place for now, OP f/u call if new issues arise Subjective Doing well Urine has cleared Tolerating his catheter Minimally interactive Denies any substantial complaints or subjective complaints Physical Exam Constitutional: + obese; no acute distress Obese, trach in place, minimal movement of extremities Respiratory: no respiratory distress trach in place Cardiovascular: Extremities: no pedal edema Gastrointestinal (Abdomen): Inspection/Auscultation: abdomen normal to inspection Genitourinary: urine clear (davey) Results & Data Vital Signs (Past 12 Hours) Vital Signs Temp Pulse Pulse Pulse Resp BP BP 12/23/18 07:26 36.5 C 84 18 140/80 12/23/18 05:44 94 H 20 12/23/18 03:30 36.5 C 80 20 125/77 12/23/18 00:20 36.7 C 85 20 118/50 L 12/22/18 23:55 92 H 12/22/18 23:24 36.7 C 90 20 133/59 L Pulse Ox 12/23/18 07:26 94 12/23/18 05:44 92 12/23/18 03:30 90 12/23/18 00:20 90 12/22/18 23:55 12/22/18 23:24 90 PG Care Time/CCT Total # of Minutes Spent Total Time Spent with Patient: Total time spent is greater than 50% in coordination of care (as documented) at patient's floor/unit and/or counseling patient:
--- NOTE | 2018-12-23 11:21 | Ultrasound Report ---
US venous doppler LE CLINICAL HISTORY: 63 years-old Male presenting with h/o DVT, immobility, concern for DVT. TECHNIQUE: Real-time grayscale and color and spectral Doppler ultrasound imaging of the veins of the bilateral lower extremities was performed. Compression and augmentation were also utilized. COMPARISON: None. FINDINGS: RIGHT: Common femoral vein: Patent. Greater saphenous vein (superficial): Patent. Deep femoral vein: Patent. Femoral vein: Patent. Popliteal vein: Patent. Calf veins: Patent. LEFT: Common femoral vein: Patent. Greater saphenous vein (superficial): Patent. Deep femoral vein: Patent. Femoral vein: Patent. Popliteal vein: Patent. Calf veins: Patent. Other: None. IMPRESSION: No evidence of deep venous thrombosis. Electronically signed by: Gilberto Ashraf M.D. 12/23/2018 11:20 AM
--- NOTE | 2018-12-23 11:32 | Hospitalist Progress Note ---
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 supervisor 8.4 on admission, secondary to obstruction--> Fitch bulb was in urethra and causing trauma in setting of INR>10 with gross hematuria Post-obstructive ADAM with ATN now resolving Appreciate urgent Urologic management--> removed Fitch and had large amount of bloody and purulent urine drain out--> 3L total Replaced with Fitch 12/20 and RN continues with hand irrigation for hematuria which is now resolved -continues to have large amount of urine output -with AG met acidosis from ADAM, ABG with acidosis all now resolved -pattern chain maker supervisor continues to improve with Bicarb IVFs and PRBC transfusion--> now down to 3.34 Serum bicarb improved up to 29 -dc IVFs with bicarb today as per Nephrology Appreciate Nephrology management, no urgent HD needed at this time Appreciate Urology management -if needed intermittent HD, would need transfer to another facility for the weekend there is no urgent HD availability -follow BMP serially, again this evening -avoid nephrotoxins -continue tele monitoring (2) Gross hematuria: With large amount of hematuria secondary to Fitch trauma in setting of INR>10 as above -finally has resolved after much blood loss, with some oozing at meatus today after being turned for cleaning up a BM -INR now remains low and stable at 1.3 after FFP and Vit K multiple doses -with acute blood loss anemia requiring 7 units PRBCs thus far and hgb still only at 8.4 -follow Hgb -appreciate Urology management -continue hand irrigation of Fitch as per Urology as needed (3) UTI (urinary tract infection) due to urinary indwelling Fitch catheter: With UTI on admission secondary to profound obstruction as above. Purulent urine noted to drain out after Fitch replaced by Urol -given h/o resistant organisms, was placed initially on Ertapenem, however Ur cx growing Stenotrophomonas resistant to Ceftazidime and Levaquin, but sensitive to Bactrim Repeat culture also growing Julia -consult ID ID thinks Stenotroph is a colonizer and to not treat, recommends repeating urine culture On admission, did have leukocytosis, no fever, but was noted to have purulent urine by Urology -will dc ertapenem for now as this will not work for Steno. -follow repeat Ur cx -no need to treat Julia albicans either (4) Anemia: Acute blood loss anemia in setting of chronic disease anemia and Fe- deficiency anemia With microcytic anemia and Fe deficiency Blood loss from gross hematuria and also with large hematoma in RUE from straining to pull himself upright Hematuria now resolved except some scant oozing at meatus - Baseline Hgb is 9-10 - received 7 units PRBCs so far this admission and hgb still only 8.4 today INR remains low at 1.3 -follow CBC this evenin g and again in AM -transfuse for hgb<8.0 -hemodynamically stable (5) Supratherapeutic INR: - INR of 10.4 on admission - Received Vit K 10 mg IV in the ER, received FFP 2 units, then 2 more doses of Vit K after that on subsequent days INR finally down at 1.3 - continue to hold coumadin - Follow INR in AM (6) Chronic indwelling Fitch catheter: Since 2016, has been bed-bound since that time - Fitch was exchanged on 12/20 as above (7) Hyponatremia: - Na down 131 upon admission, secondary to ADAM Now resolved, at 143 with resolution of ADAM -follow BMP (8) Heart failure, systolic, due to idiopathic cardiomyopathy: - chronic systolic CHF -last ECHO in 2016 showing LVEF of 40% Now with normal EF but with moderately reduced right sided RV function likely secondary to OHS and KEARA - continue holding lasix and have since restarted metoprolol as per Cardiology--> of note, he is supposed to have Toprol XL 25mg daily on his home med list, but is on there as metoprolol tartrate 25mg po qday--> will have to sort out prior to discharge -for now, continue metoprolol and increase to 50 mg po bid of tartrate as per Cardiology (9) Atrial fibrillation and flutter: - history of such and has pacer after Aflutter ablation currently in NSR, paced rhythm, frequent PVCs and nonsustained VT runs -held metoprolol due to acute blood loss and ongoing bleeding but BPs now stable -continue tele monitoring -is on coumadin typically but being held as above -will now increase metoprolol 50mg bid -Appreciate Cardio consult (10) KEARA (obstructive sleep apnea): - s/p trach placement 2015 - previous noncompliance with CPAP for KEARA (11) Obesity hypoventilation syndrome: - noted, with trach in place (12) H/O tracheostomy: - spaced in 2016 following intubation and mechanical ventilation for respiratory failure - noncompliance with CPAP for KEARA and the trach was placed as a result - Was changed during last admission on 12/02/18 (13) Abnormal CT of the abdomen: With a h/o numerous extraperitoneal fluid collections with some up to 5cm in size, ? if these areas were microabscesses vs small hematomas vs a combination of the two. Consider old hematoma from even previous admission as well as possible new ones today with INR being significantly supratherapeutic again. Repeat CT 12/21 with decreased size of collections -follow along with imaging Cystogram here without evidence of bladder perforation if hgb continues to drop without obvious source, will repeat CT abdomen (14) Gait disorder: - Has not been ambulatory for 2 years - PT/OT consults (15) Renal mass, right: - Hx of right renal mass, unclear if ever diagnosed with cancer (16) Depression: - Continue sertraline 100 mg daily (17) Hypothyroidism: - Continue levothyroxine 100 mcg daily TSH here is 3.48 (18) Morbid obesity with BMI of 60.0-69.9, adult: - BMI of 56.6 this time, was over 60 during last admission - HH/DM diet (19) Venous insufficiency: - Chronic, wound consult for ulcerations on the R calf - Lymphedema at baseline (20) Lymphedema: - Wound consulted - appreciate (21) Dyslipidemia: - Cont statin therapy (22) Severe protein-calorie malnutrition: Albumin severely low at 1.5 and persists - appreciate Dietary recommendations--> add supplement when pattern chain maker supervisor comes down -add nephrocaps for improved wound healing -follow labs, BMP, Phos, albumin (23) Asthma: - Hx of such, continue nebs QID as per home meds, no acute issues but is requiring 40% FiO2 via trach collar (24) Nonsustained ventricular tachycardia: frequent PVCs and short runs of VT VT now resolved in the last 24 hours -restarted metoprolol and increasing to 50mg bid follow on tele -appreciate Cardio consult -replace K+ (25) Hematoma: RUE, from straining -elevated arm for swelling, ice (26) Hypokalemia: replaced with po K+ by Nephro -follow BMP (27) DVT prophylaxis: - no chemical ppx ordered with supratherapeutic INR, gross hematuria - teds/scds not able to be placed due to lymphedema and chronic wounds Dispo: From [place], PT/OT consults, remain on PCU, prognosis guarded FULL CODE Subjective Pt has no concerns. No CP or SOB, no abd pain, no back pain. Tele still with frequent PVCs bu tnofurther VT runs No hematuria but has some scant blood around the Fitch Discussed case with Cardiology Review of Systems Review of Systems: All systems reviewed & are unremarkable except as noted in HPI & below Physical Exam Constitutional: WD/WN, vitals as above + morbidly obese Eyes: + anicteric sclerae Neck: + tracheostomy present Respiratory: normal respiratory effort Auscultation: + diminished lung sounds (bilat bases); no wheezes Cardiovascular: Rate/Rhythm: regular rate and regular rhythm Heart Sounds: no murmur Extremities: + edema (3+ pitting edema to thighs bilat;RUE with 2+nonpitting edema) Gastrointestinal (Abdomen): normal bowel sounds, soft, nontender, no hepatosplenomegaly (morbidly obese abdomen) Musculoskeletal: Extremities: + extremities abnormal to inspection (RUE with large amount of edema throughout, with hematoma,purple ecchymosis ), no cyanosis and no clubbing Skin: + wound (wound posterior leg) Neurologic: moves all extremities and awake; no focal motor deficits Psychiatric: Orientation: alert and cooperative Genitourinary: Fitch in place with scant blood around meatus, urine itself is clear and yellow Results & Data Vital Signs (Past 12 Hours) Vital Signs Temp Pulse Pulse Pulse Resp BP BP 12/23/18 07:26 36.5 C 84 18 140/80 12/23/18 05:44 94 H 20 12/23/18 03:30 36.5 C 80 20 125/77 12/23/18 00:20 36.7 C 85 20 118/50 L 12/22/18 23:55 92 H Pulse Ox 12/23/18 07:26 94 12/23/18 05:44 92 12/23/18 03:30 90 12/23/18 00:20 90 12/22/18 23:55 Laboratory Results 12/23/18 12/23/18 12/22/18 Range/Units 05:33 05:33 15:44 WBC 10.29 (4.8-10.8) K/uL RBC 3.06 L (4.7-6.1) M/uL Hgb 8.4 L (14.0-18.0) g/dL Hct 25.9 L (42-52) % MCV 84.6 (80-100) fL MCH 27.5 (25-34) pg MCHC 32.4 (32-36) g/dL RDW Std Deviation 54.4 H (36.4-46.3) fL RDW Coeff of Lexy 17.6 H (11.5-14.5) % Plt Count 318 (130-400) K/uL MPV 8.1 (7.4-10.4) fL Immature Gran % (Auto) % Neut % (Auto) % Lymph % (Auto) % [place] % (Auto) % Eos % (Auto) % Baso % (Auto) % Immature Gran # (Auto) (0.00-0.02) K/uL Neut # (Auto) (1.4-6.5) K/uL Lymph # (Auto) (1.2-3.4) K/uL [place] # (Auto) (0.11-0.59) K/uL Eos # (Auto) (0-0.5) K/uL Baso # (Auto) (0-0.2) K/uL Polychromasia Basophilic Stippling Sodium 143 140 (136-145) mmol/L Potassium 3.1 L 3.2 L (3.5-5.1) mmol/L Chloride 106 105 (98-107) mmol/L Carbon Dioxide 29 24 (21-32) mmol/L Anion Gap 8.0 11.0 (3-11) BUN 100 H 110 H (7-18) mg/dl Creatinine 3.34 H D 4.03 H D (0.6-1.4) mg/dl Est Cr Clr Drug Dosing 37.6 31.1 ml/min Est GFR ( Amer) 21.7 17.3 Est GFR (Non-Af Amer) 18.7 14.9 BUN/Creatinine Ratio 29.8 H 27.2 H (10-20) Glucose 89 98 (70-99) mg/dl Calcium 8.0 L 7.5 L (8.5-10.1) mg/dl Phosphorus 5.1 H D (2.5-4.9) mg/dl Albumin 1.5 L (3.4-5.0) gm/dl Urine Color Urine Appearance (Clear) Urine pH (4.5-7.5) Ur Specific [place] (1.000-1.030) Urine Protein (Negative) Urine Glucose (UA) (Negative) Urine Ketones (Negative) Urine Blood (Negative) Urine Nitrite (Negative) Urine Bilirubin (Negative) Urine Urobilinogen (Negative) Ur Leukocyte Esterase (Negative) Urine RBC (0-4) /hpf Urine WBC (0-5) /hpf Ur Epithelial Cells (0-5) /lpf Calcium Oxalate Crystal (None Prsent) Urine Bacteria (Negative) WBC Casts (0) /lpf Urine Yeast (None Prsent) Blood Type Antibody Screen Crossmatch 12/22/18 12/22/18 12/20/18 Range/Units 15:44 14:45 12:11 WBC 8.35 (4.8-10.8) K/uL RBC 2.86 L (4.7-6.1) M/uL Hgb 7.7 L (14.0-18.0) g/dL Hct 23.6 L (42-52) % MCV 82.5 (80-100) fL MCH 26.9 (25-34) pg MCHC 32.6 (32-36) g/dL RDW Std Deviation 52.9 H (36.4-46.3) fL RDW Coeff of Lexy 17.3 H (11.5-14.5) % Plt Count 289 (130-400) K/uL MPV 7.7 (7.4-10.4) fL Immature Gran % (Auto) 1.2 % Neut % (Auto) 75.3 % Lymph % (Auto) 9.1 % [place] % (Auto) 9.1 % Eos % (Auto) 5.1 % Baso % (Auto) 0.2 % Immature Gran # (Auto) 0.10 H (0.00-0.02) K/uL Neut # (Auto) 6.28 (1.4-6.5) K/uL Lymph # (Auto) 0.76 L (1.2-3.4) K/uL [place] # (Auto) 0.76 H (0.11-0.59) K/uL Eos # (Auto) 0.43 (0-0.5) K/uL Baso # (Auto) 0.02 (0-0.2) K/uL Polychromasia 1+ Basophilic Stippling 1+ Sodium (136-145) mmol/L Potassium (3.5-5.1) mmol/L Chloride (98-107) mmol/L Carbon Dioxide (21-32) mmol/L Anion Gap (3-11) BUN (7-18) mg/dl Creatinine (0.6-1.4) mg/dl Est Cr Clr Drug Dosing ml/min Est GFR ( Amer) Est GFR (Non-Af Amer) BUN/Creatinine Ratio (10-20) Glucose (70-99) mg/dl Calcium (8.5-10.1) mg/dl Phosphorus (2.5-4.9) mg/dl Albumin (3.4-5.0) gm/dl Urine Color Nevaeh Urine Appearance Cloudy A (Clear) Urine pH 5.0 (4.5-7.5) Ur Specific [place] 1.020 (1.000-1.030) Urine Protein 1+ H (Negative) Urine Glucose (UA) Negative (Negative) Urine Ketones Negative (Negative) Urine Blood 3+ H (Negative) Urine Nitrite Negative (Negative) Urine Bilirubin Negative (Negative) Urine Urobilinogen Negative (Negative) Ur Leukocyte Esterase 2+ H (Negative) Urine RBC >30 H (0-4) /hpf Urine WBC >30 H (0-5) /hpf Ur Epithelial Cells 0-5 (0-5) /lpf Calcium Oxalate Crystal Present A (None Prsent) Urine Bacteria 2+ H (Negative) WBC Casts 1-5 H (0) /lpf Urine Yeast Budding w/ Hyphae A (None Prsent) Blood Type O Positive Antibody Screen NEGATIVE Crossmatch See Detail PG Care Time/CCT Total # of Minutes Spent Total Time Spent with Patient: Total time spent is greater than 50% in coordination of care (as documented) at patient's floor/unit and/or counseling patient: (1) Anemia Anemia type: other cause (2) Depression Depression Type: other depression Qualified Code(s): F32.89 - Other specified depressive episodes (3) Hypothyroidism Hypothyroidism type: acquired Qualified Code(s): E03.9 - Hypothyroidism, unspecified (4) Asthma Asthma severity: unspecified severity Asthma persistence: unspecified Asthma complication type: unspecified Qualified Code(s): J45.909 - Unspecified asthma, uncomplicated
--- NOTE | 2018-12-23 11:35 | Cardiology Progress Note ---
Date of Service December 23, 2018 Assessment & Plan (1) Gross hematuria: (2) Hematoma: (3) Severe protein-calorie malnutrition: (4) Elevated INR: (5) Nonsustained ventricular tachycardia: (6) Morbid obesity with BMI of 60.0-69.9, adult: (7) KEARA (obstructive sleep apnea): (8) Obesity hypoventilation syndrome: I will increase the patient's metoprolol. He is a large man and his vital signs indicate he would tolerate an increased dosage. He is still having frequent ventricular ectopy. I would continue to supplement his potassium as needed. No additional cardiac testing at this time. Subjective The patient has no new cardiac complaints. I reviewed his telemetry and he is still having frequent PVCs but no nonsustained ventricular tachycardia. Review of Systems Review of Systems: All systems reviewed & are unremarkable except as noted in HPI & below Nothing additional Physical Exam Physical Exam: General: no acute distress and stated age, morbidly obese Head: normocephalic, no masses, lesions, tenderness or abnormalities Eyes: conjunctiva are pink and non-injected, sclera clear Neck: Tracheostomy in place. Chest: normal shape and normal respiratory effort Lungs: clear to auscultation and percussion Cardiac Exam: - irregular rate & rhythm, no murmurs gallops or rubs - normal S1, normal S2 Pulses: 2(+) throughout Abdomen: Obese, abdomen soft, non-tender, no abnormal masses and no hepatosplenomegaly Musculoskeletal: no gait disturbance, no joint inflammation, no deforming arthritis Extremities: no edema and no cyanosis Neuro: grossly normal exam Results & Data Vital Signs (Past 12 Hours) Vital Signs Temp Pulse Pulse Pulse Resp BP BP 12/23/18 07:26 36.5 C 84 18 140/80 12/23/18 05:44 94 H 20 12/23/18 03:30 36.5 C 80 20 125/77 12/23/18 00:20 36.7 C 85 20 118/50 L 12/22/18 23:55 92 H Pulse Ox 12/23/18 07:26 94 12/23/18 05:44 92 12/23/18 03:30 90 12/23/18 00:20 90 12/22/18 23:55 Laboratory Results Laboratory Results - last 24 hr 12/20/18 12/22/18 12/22/18 12:11 14:45 15:44 WBC 8.35 RBC 2.86 L Hgb 7.7 L Hct 23.6 L MCV 82.5 MCH 26.9 MCHC 32.6 RDW Std Deviation 52.9 H RDW Coeff of Lexy 17.3 H Plt Count 289 MPV 7.7 Immature Gran % (Auto) 1.2 Neut % (Auto) 75.3 Lymph % (Auto) 9.1 Cavalier % (Auto) 9.1 Eos % (Auto) 5.1 Baso % (Auto) 0.2 Immature Gran # (Auto) 0.10 H Neut # (Auto) 6.28 Lymph # (Auto) 0.76 L Cavalier # (Auto) 0.76 H Eos # (Auto) 0.43 Baso # (Auto) 0.02 Polychromasia 1+ Basophilic Stippling 1+ Sodium Potassium Chloride Carbon Dioxide Anion Gap BUN Creatinine Est Cr Clr Drug Dosing Est GFR ( Amer) Est GFR (Non-Af Amer) BUN/Creatinine Ratio Glucose Calcium Phosphorus Albumin Urine Color Nevaeh Urine Appearance Cloudy A Urine pH 5.0 Ur Specific [place] 1.020 Urine Protein 1+ H Urine Glucose (UA) Negative Urine Ketones Negative Urine Blood 3+ H Urine Nitrite Negative Urine Bilirubin Negative Urine Urobilinogen Negative Ur Leukocyte Esterase 2+ H Urine RBC >30 H Urine WBC >30 H Ur Epithelial Cells 0-5 Calcium Oxalate Crystal Present A Urine Bacteria 2+ H WBC Casts 1-5 H Urine Yeast Budding w/ Hyphae A Blood Type O Positive Antibody Screen NEGATIVE Crossmatch See Detail 12/22/18 12/23/18 12/23/18 15:44 05:33 05:33 WBC 10.29 RBC 3.06 L Hgb 8.4 L Hct 25.9 L MCV 84.6 MCH 27.5 MCHC 32.4 RDW Std Deviation 54.4 H RDW Coeff of Lexy 17.6 H Plt Count 318 MPV 8.1 Immature Gran % (Auto) Neut % (Auto) Lymph % (Auto) Cavalier % (Auto) Eos % (Auto) Baso % (Auto) Immature Gran # (Auto) Neut # (Auto) Lymph # (Auto) Cavalier # (Auto) Eos # (Auto) Baso # (Auto) Polychromasia Basophilic Stippling Sodium 140 143 Potassium 3.2 L 3.1 L Chloride 105 106 Carbon Dioxide 24 29 Anion Gap 11.0 8.0 BUN 110 H 100 H Creatinine 4.03 H D 3.34 H D Est Cr Clr Drug Dosing 31.1 37.6 Est GFR ( Amer) 17.3 21.7 Est GFR (Non-Af Amer) 14.9 18.7 BUN/Creatinine Ratio 27.2 H 29.8 H Glucose 98 89 Calcium 7.5 L 8.0 L Phosphorus 5.1 H D Albumin 1.5 L Urine Color Urine Appearance Urine pH Ur Specific [place] Urine Protein Urine Glucose (UA) Urine Ketones Urine Blood Urine Nitrite Urine Bilirubin Urine Urobilinogen Ur Leukocyte Esterase Urine RBC Urine WBC Ur Epithelial Cells Calcium Oxalate Crystal Urine Bacteria WBC Casts Urine Yeast Blood Type Antibody Screen Crossmatch Medications Administered Current Inpatient Medications Acetaminophen (Tylenol) 650 mg PO Q4H PRN PRN Reason: Moderate Pain Stop: 01/19/19 14:27 Last Admin: 12/22/18 21:27 Dose: 650 mg Documented by: Albuterol (Duoneb) 3 ml NEB QIDR [facility] Stop: 01/19/19 14:59 Last Admin: 12/23/18 05:42 Dose: 3 ml Documented by: Calamine/Phenol (Calmoseptine) 1 appln EXT Q6 PRN PRN Reason: Wound Care Stop: 01/19/19 14:27 Last Admin: 12/21/18 05:21 Dose: 1 appln Documented by: Chlorhexidine Gluconate (Peridex) 15 ml MT BID [facility] Stop: 01/19/19 20:59 Last Admin: 12/23/18 08:14 Dose: 15 ml Documented by: Ferrous Sulfate (Feosol) 325 mg PO QAM [facility] Stop: 01/20/19 08:59 Last Admin: 12/23/18 08:15 Dose: 325 mg Documented by: Guaifenesin (Mucinex) 1,200 mg PO BID [facility] Stop: 01/19/19 20:59 Last Admin: 12/23/18 08:17 Dose: 1,200 mg Documented by: Sodium Chloride (Nss) 250 mls @ 15 mls/hr IV .[id number] PRN PRN Reason: For Transfusion Stop: 01/19/19 20:16 Sodium Bicarbonate 75 meq/ (Sodium Chloride) 1,075 mls @ 100 mls/hr IV .[id number] [facility] Stop: 01/20/19 10:29 Last Admin: 12/23/18 06:00 Dose: 100 mls/hr Documented by: Sodium Chloride (Nss) 250 mls @ 15 mls/hr IV .[id number] PRN PRN Reason: For Transfusion Stop: 01/20/19 19:06 Sodium Chloride (Nss) 250 mls @ 15 mls/hr IV .[id number] PRN PRN Reason: For Transfusion Stop: 01/21/19 16:18 Ioversol (Optiray 300) 50 ml IV ONCE PRN PRN Reason: Interaction Checking Stop: 12/25/18 11:35 Last Admin: 12/21/18 11:36 Dose: 50 ml Documented by: Levothyroxine Sodium (Synthroid) 100 mcg PO DAILYBB [facility] Stop: 01/20/19 06:29 Last Admin: 12/23/18 05:59 Dose: 100 mcg Documented by: Magnesium Hydroxide (Milk Of Magnesia) 30 ml PO HS PRN PRN Reason: Constipation Stop: 01/19/19 14:27 Metoprolol Tartrate (Lopressor) 50 mg PO BID17 [facility] Stop: 01/22/19 16:59 Nystatin (Mycostatin) 1 appln EXT DAILY [facility] Stop: 01/20/19 08:59 Last Admin: 12/23/18 08:16 Dose: 1 appln Documented by: Ondansetron HCl (Zofran) 4 mg IV Q4H PRN PRN Reason: Nausea And Vomiting Stop: 01/19/19 14:27 Pantoprazole Sodium ([facility]ix) [facility] [place] Stop: 01/20/19 08:59 Last Admin: 12/23/18 08:13 Dose: 40 mg Documented by: Sertraline HCl (Zoloft) [facility] [place] Stop: 01/20/19 08:59 Last Admin: 12/23/18 08:14 Dose: 100 mg Documented by: Simvastatin (Zocor) 10 mg PO QAM [facility] Stop: 01/20/19 08:59 Last Admin: 12/23/18 08:13 Dose: 10 mg Documented by: Vitamin B Complex/Folic Acid (Nephrocaps) [facility] [place] Stop: 01/21/19 08:59 Last Admin: 12/23/18 08:15 Dose: 1 cap Documented by:
[2018-12-23] MEDS ORDERED: Nursing to Pharmacy Communication ONE (13:44)
[2018-12-23 17:15] LABS: Hemoglobin 8.3 g/dL (14.0-18.0); Mean Corpuscular Hemoglobin 27.4 pg (25-34); Mean Corpuscular Hgb Conc 31.9 g/dL (32-36); Mean Corpuscular Volume 85.8 fL (80-100); Mean Platelet Volume 7.9 fL (7.4-10.4); Platelet Count 280 K/uL (130-400); RDW Coefficient of Variation 17.6 % (11.5-14.5); RDW Standard Deviation 54.8 fL (36.4-46.3); Red Blood Count 3.03 M/uL (4.7-6.1); White Blood Count 9.17 K/uL (4.8-10.8)
[2018-12-23 17:43] LABS: BUN Creatinine Ratio 35.5 (10-20); Creatinine Clr Calc Pharmacy 47.7 ml/min; Est GFR (African American) 28.9; Est GFR (Non-African American) 24.9; Magnesium 1.9 mg/dl (1.8-2.4); Potassium 3.2 mmol/L (3.5-5.1)
[2018-12-23] MEDS ORDERED: MAGNESIUM SULFATE / D5W 1 GM/100 ML BAG IV ONE (23:37)
[2018-12-24] MEDS: LEVOTHYROXINE SODIUM 100 MCG TABLET PO SCH (06:25)
[2018-12-24 06:41] LABS: Hematocrit (blood only) 28.7 % (42-52); Hemoglobin 8.9 g/dL (14.0-18.0); Mean Corpuscular Hemoglobin 27.1 pg (25-34); Mean Corpuscular Volume 87.2 fL (80-100); Platelet Count 300 K/uL (130-400); RDW Coefficient of Variation 17.6 % (11.5-14.5); RDW Standard Deviation 55.4 fL (36.4-46.3); Red Blood Count 3.29 M/uL (4.7-6.1); White Blood Count 10.82 K/uL (4.8-10.8)
[2018-12-24 06:49] LABS: INR 1.5 (0.9-1.1); Prothrombin Time 14.9 Seconds (9.0-12.0)
[2018-12-24 07:20] LABS: Albumin Level 1.6 gm/dl (3.4-5.0); BUN Creatinine Ratio 38.2 (10-20); Calcium 8.3 mg/dl (8.5-10.1); Creatinine Clr Calc Pharmacy 67.3 ml/min; Est GFR (African American) 37.7; Est GFR (Non-African American) 32.6; Potassium 3.4 mmol/L (3.5-5.1)
[2018-12-24] MEDS: ALBUT/IPRATROP 3MG/0.5MG NEB 3 ML VIAL NEB SCH ×4 (07:22→19:28)
[2018-12-24 07:31] LABS: Phosphorus 3.8 mg/dl (2.5-4.9)
[2018-12-24] MEDS: SIMVASTATIN 10 MG TAB PO SCH (09:01)
[2018-12-24] MEDS: PANTOprazole 40 MG TAB PO SCH (09:01)
[2018-12-24] MEDS: NEPHROCAPS PO SCH (09:01)
[2018-12-24] MEDS: FERROUS SULFATE 325 MG TAB PO SCH (09:01)
[2018-12-24] MEDS: SERTRALINE HCL 50 MG TABLET PO SCH (09:02)
[2018-12-24] MEDS: guaiFENesin 600 MG TABCR PO SCH ×2 (09:02→20:23)
[2018-12-24] MEDS: CHLORHEXIDINE GLUCONATE 0.12% 480 ML MT SCH ×2 (09:02→20:23)
[2018-12-24] MEDS: METOPROLOL TARTRATE 25 MG TAB PO SCH ×3 (09:03→20:22)
[2018-12-24] MEDS: NYSTATIN POWDER 15GM BTL EXT SCH (09:03)
[2018-12-24] MEDS ORDERED: POTASSIUM CHLORIDE 20 MEQ TABCR PO STA (09:47)
--- NOTE | 2018-12-24 09:59 | Urology Progress Note ---
Date of Service December 24, 2018 Assessment & Plan (1) Gross hematuria: Given prior Fitch traumablood around the catheter is expected He denies any complaints Urine draining appropriately in the bagclear Please call us if there are other issues during this hospitalization otherwise we will plan for outpatient follow-up Subjective He denies any subjective complaints He did receive one call from nursing overnight complaining of blood leaking around the catheter from the tip of the penis No blood within the urine Physical Exam Physical Exam: Modest amount of bloody discharge from the urethra around the catheter, urine in the Fitch catheter tubing and bag remains clear Trach Limited mobility Obesity Abdomen soft Edematous lower extremities Modest skin changes Results & Data Vital Signs (Past 12 Hours) Vital Signs Temp Pulse Resp BP Pulse Ox 12/24/18 07:49 36.7 C 87 20 139/71 95 12/24/18 07:23 99 H 20 95 12/24/18 02:53 36.7 C 83 16 121/59 L 94 12/23/18 23:38 36.8 C 70 16 124/55 L 97 PG Care Time/CCT Total # of Minutes Spent Total Time Spent with Patient: Total time spent is greater than 50% in coordina tion of care (as documented) at patient's floor/unit and/or counseling patient:
--- NOTE | 2018-12-24 11:18 | Hospitalist Progress Note ---
Date of Service December 24, 2018 Assessment & Plan (1) ADAM (acute kidney injury): Presented with profound ADAM with grain trader 8.4 on admission, secondary to obstruction--> Fitch bulb was in urethra and causing trauma in setting of INR>10 with gross hematuria Post-obstructive ADAM with ATN now resolving Appreciate urgent Urologic management--> removed Fitch and had large amount of bloody and purulent urine drain out--> 3L total initially Replaced with Fitch 12/20 and RN continues with hand irrigation for hematuria which is now resolved -continues to have excellent urine output -with AG met acidosis from ADAM, ABG with acidosis all now resolved -grain trader continues to improve initially with relief of obstruction and IVFs with bicarb and PRBC transfusion--> now down to 2.11 Serum bicarb improved up to 32 -have since dcd IVFs with bicarb as per Nephrology Appreciate Nephrology management, no urgent HD needed at this time Appreciate Urology management -if needed intermittent HD, would need transfer to another facility for the weekend there is no urgent HD availability -follow BMP daily now -avoid nephrotoxins -continue tele monitoring but ok for downgrade from PCU to med-tele (2) Gross hematuria: With large amount of hematuria secondary to Fitch trauma in setting of INR>10 as above -finally has resolved after much blood loss, with some oozing continuing at meatus today after being turned for cleaning up a BM Urology thinks just minor Fitch trauma bleeding at this point but none in urine -INR down to 1.3 after FFP and Vit K multiple doses, however now back up on its own to 1.5 -with acute blood loss anemia requiring 7 units PRBCs thus far and hgb finally up to 8.9 -follow CBC -appreciate Urology management -continue hand irrigation of Fitch as per Urology as needed -Urology has signed off, needs office f/u (3) UTI (urinary tract infection) due to urinary indwelling Fitch catheter: With UTI on admission secondary to profound obstruction as above. Purulent urine noted to drain out after Fitch replaced by Urol -given h/o resistant organisms, was placed initially on Ertapenem, however Ur cx growing Stenotrophomonas resistant to Ceftazidime and Levaquin, but sensitive to Bactrim Repeat culture also growing Julia -consult ID appreciated ID thinks Stenotroph is a colonizer and to not treat, recommends repeating urine culture-again growing Julia On admission, did have leukocytosis, no fever, but was noted to have purulent urine by Urology WBC count back up slightly today to 10k -have since dcd ertapenem for now as this will not work for Steno. -no need to treat Julia albicans either -await any further recommendations from ID (4) Anemia: Acute blood loss anemia in setting of chronic disease anemia and Fe- deficiency anemia With microcytic anemia and Fe deficiency Blood loss from gross hematuria and also with large hematoma in RUE from straining to pull himself upright/strain Hematuria now resolved except some scant oozing at meatus - Baseline Hgb is 9-10 - received 7 units PRBCs so far this admission and hgb now up to 8.9 INR back u to 1.5 as above -follow CBC in AM -transfuse for hgb<8.0 -hemodynamically stable (5) Supratherapeutic INR: - INR of 10.4 on admission - Received Vit K 10 mg IV in the ER, received FFP 2 units, then 2 more doses of Vit K after that on subsequent days INR was down at 1.3, now up again on own to 1.5 - continue to hold coumadin - Follow INR in AM -may need more po Vit K due to poor nutrition Does not have evidence of liver disease on labs or imaging (6) Chronic indwelling Fitch catheter: Since 2016, has been bed-bound since that time - Fitch was exchanged on 12/20 as above (7) Hyponatremia: - Na down 131 upon admission, secondary to ADAM Now resolved, at 145 with resolution of ADAM -follow BMP (8) Heart failure, systolic, due to idiopathic cardiomyopathy: - chronic systolic CHF -last ECHO in 2016 showing LVEF of 40% Now with normal EF but with moderately reduced right sided RV function likely secondary to OHS and KEARA - continue holding lasix and have since restarted metoprolol as per Cardiology--> of note, he is supposed to have Toprol XL 25mg daily on his home med list, but is on there as metoprolol tartrate 25mg po qday--> will have to sort out prior to discharge -for now, continue metoprolol and increased to 50 mg po bid of tartrate as per Cardiology for frequent PVCs, NSVT (9) Atrial fibrillation and flutter: - history of such and has pacer after Aflutter ablation currently in NSR, paced rhythm, frequent PVCs and nonsustained VT runs -held metoprolol initially due to acute blood loss and ongoing bleeding but BPs now stable -continue tele monitoring but can downgrade to med-tele -is on coumadin typically but being held as above -continue increased dose metoprolol 50mg bid -Appreciate Cardio consult (10) KEARA (obstructive sleep apnea): - s/p trach placement 2016 - previous noncompliance with CPAP for KEARA (11) Obesity hypoventilation syndrome: - noted, with trach in place (12) H/O tracheostomy: - spaced in 2016 following intubation and mechanical ventilation for respiratory failure - noncompliance with CPAP for KEARA and the trach was placed as a result - Was changed during last admission on 12/02/18 -trach care as per RT (13) Abnormal CT of the abdomen: With a h/o numerous extraperitoneal fluid collections with some up to 5cm in size, ? if these areas were microabscesses vs small hematomas vs a combination of the two. Consider old hematoma from even previous admission as well as possible new ones today with INR being significantly supratherapeutic again. Repeat CT 12/21 with decreased size of collections -follow along with imaging Cystogram here without evidence of bladder perforation WBC count up slightly but no fever Hgb stable to increased so do not suspect continued intra-abdominal bleeding -if hgb drops without obvious source, would repeat CT abdomen (14) Gait disorder: - Has not been ambulatory for 2 years - PT/OT consults (15) Renal mass, right: - Hx of right renal mass, unclear if ever diagnosed with cancer (16) Depression: - Continue sertraline 100 mg daily and consider increasing due to signs of depression like apathy over healthcare needs (17) Hypothyroidism: - Continue levothyroxine 100 mcg daily TSH here is 3.48 (18) Morbid obesity with BMI of 60.0-69.9, adult: - BMI of 56.6 this time, was over 60 during last admission - HH/DM diet (19) Venous insufficiency: - Chronic, wound consult for ulcerations on the R calf - Lymphedema at baseline (20) Lymphedema: - Wound consulted - appreciate (21) Dyslipidemia: - Cont statin therapy (22) Severe protein-calorie malnutrition: Albumin severely low at 1.6 and persists - appreciate Dietary recommendations--> add supplement when grain trader comes down -add nephrocaps for improved wound healing -follow labs, BMP, Phos, albumin (23) Asthma: - Hx of such, continue nebs QID as per home meds, no acute issues but is requiring 40% FiO2 via trach collar (24) Nonsustained ventricular tachycardia: frequent PVCs and short runs of VT VT runs now only 2-4 beats but frequent, also continues with frequent bigem, asymptomatic LVEF now normalized -restarted metoprolol and increased to 50mg bid follow on tele -appreciate Cardio consult -replace K+ (25) Hematoma: RUE, from straining, edema improving now -elevate arm for swelling, ice (26) Hypokalemia: replaced with po K+ again today -follow BMP (27) DVT prophylaxis: - no chemical ppx ordered with supratherapeutic INR, gross hematuria - teds/scds not able to be placed due to lymphedema and chronic wounds Dispo: From [facility], PT/OT consults Improving/stable Downgrade to Med-tele Eventually back to [facility], maybe in the next 2-3 days FULL CODE Subjective has no complaints. has some blood around meatus and Fitch but not in urine. RNs report he is refusing baths and refuses to be turned at times. He is moving his bowels. Tele with frequent PVCs, bigeminy, NSR Review of Systems Review of Systems: All systems reviewed & are unremarkable except as noted in HPI & below Physical Exam Constitutional: WD/WN, vitals as above + morbidly obese Eyes: + anicteric sclerae Neck: + tracheostomy present Respiratory: normal respiratory effort Auscultation: + diminished lung sounds (bilat bases) and + rhonchi; no wheezes Cardiovascular: Rate/Rhythm: regular rate and regular rhythm Heart Sounds: no murmur Extremities: + edema (3+ pitting edema to thighs bilat;RUE with 1+nonpitting edema improved) Gastrointestinal (Abdomen): normal bowel sounds, soft, nontender, no hepatosplenomegaly (morbidly obese abdomen) Musculoskeletal: Extremities: + extremities abnormal to inspection (RUE with large amount of edema throughout, with hematoma,purple ecchymosis ), no cyanosis and no clubbing Skin: + lesion (dry sloughing skin all over legs) and + wound (wound posterior leg) Neurologic: moves all extremities and awake; no focal motor deficits Psychiatric: Orientation: alert Affect: + flat affect Genitourinary: Fitch with clear yellow urine, no blood Results & Data Vital Signs (Past 12 Hours) Vital Signs Temp Pulse Resp BP Pulse Ox 12/24/18 10:51 70 22 91 12/24/18 07:49 36.7 C 87 20 139/71 95 12/24/18 07:23 99 H 20 95 12/24/18 02:53 36.7 C 83 16 121/59 L 94 12/23/18 23:38 36.8 C 70 16 124/55 L 97 Laboratory Results 12/24/18 12/24/18 12/24/18 Range/Units 06:19 06:19 06:19 WBC 10.82 H (4.8-10.8) K/uL RBC 3.29 L (4.7-6.1) M/uL Hgb 8.9 L (14.0-18.0) g/dL Hct 28.7 L (42-52) % MCV 87.2 (80-100) fL MCH 27.1 (25-34) pg MCHC 31.0 L (32-36) g/dL RDW Std Deviation 55.4 H (36.4-46.3) fL RDW Coeff of Lexy 17.6 H (11.5-14.5) % Plt Count 300 (130-400) K/uL MPV 8.0 (7.4-10.4) fL PT 14.9 H (9.0-12.0) Seconds INR 1.5 H (0.9-1.1) Sodium 145 (136-145) mmol/L Potassium 3.4 L (3.5-5.1) mmol/L Chloride 108 H (98-107) mmol/L Carbon Dioxide 32 (21-32) mmol/L Anion Gap 5.0 (3-11) BUN 81 H (7-18) mg/dl Creatinine 2.11 H D (0.6-1.4) mg/dl Est Cr Clr Drug Dosing 67.3 ml/min Est GFR ( Amer) 37.7 Est GFR (Non-Af Amer) 32.6 BUN/Creatinine Ratio 38.2 H (10-20) Glucose 101 H (70-99) mg/dl Calcium 8.3 L (8.5-10.1) mg/dl Phosphorus 3.8 D (2.5-4.9) mg/dl Magnesium (1.8-2.4) mg/dl Albumin 1.6 L (3.4-5.0) gm/dl 12/23/18 12/23/18 Range/Units 17:04 17:04 WBC 9.17 (4.8-10.8) K/uL RBC 3.03 L (4.7-6.1) M/uL Hgb 8.3 L (14.0-18.0) g/dL Hct 26.0 L (42-52) % MCV 85.8 (80-100) fL MCH 27.4 (25-34) pg MCHC 31.9 L (32-36) g/dL RDW Std Deviation 54.8 H (36.4-46.3) fL RDW Coeff of Lexy 17.6 H (11.5-14.5) % Plt Count 280 (130-400) K/uL MPV 7.9 (7.4-10.4) fL PT (9.0-12.0) Seconds INR (0.9-1.1) Sodium 145 (136-145) mmol/L Potassium 3.2 L (3.5-5.1) mmol/L Chloride 108 H (98-107) mmol/L Carbon Dioxide 31 (21-32) mmol/L Anion Gap 7.0 (3-11) BUN 93 H (7-18) mg/dl Creatinine 2.63 H D (0.6-1.4) mg/dl Est Cr Clr Drug Dosing 47.7 ml/min Est GFR ( Amer) 28.9 Est GFR (Non-Af Amer) 24.9 BUN/Creatinine Ratio 35.5 H (10-20) Glucose 106 H (70-99) mg/dl Calcium 8.0 L (8.5-10.1) mg/dl Phosphorus (2.5-4.9) mg/dl Magnesium 1.9 (1.8-2.4) mg/dl Albumin (3.4-5.0) gm/dl Diagnostic Findings Doppler LEs negative PG Care Time/CCT Total # of Minutes Spent Total Time Spent with Patient: Total time spent is greater than 50% in coordination of care (as documented) at patient's floor/unit and/or counseling patient: (1) Anemia Anemia type: other cause (2) Depression Depression Type: other depression Qualified Code(s): F32.89 - Other specified depressive episodes (3) Hypothyroidism Hypothyroidism type: acquired Qualified Code(s): E03.9 - Hypothyroidism, unspecified (4) Asthma Asthma severity: unspecified severity Asthma persistence: unspecified Asthma complication type: unspecified Qualified Code(s): J45.909 - Unspecified asthma, uncomplicated
--- NOTE | 2018-12-24 11:31 | Cardiology Progress Note ---
Date of Service December 24, 2018 Assessment & Plan (1) Gross hematuria: (2) Hematoma: (3) Severe protein-calorie malnutrition: (4) Elevated INR: (5) Nonsustained ventricular tachycardia: (6) Morbid obesity with BMI of 60.0-69.9, adult: (7) KEARA (obstructive sleep apnea): (8) Obesity hypoventilation syndrome: The patient's ventricular ectopy has cleared but he is having frequent PACs. I will increase his metoprolol again. Subjective No new complaints today. The patient is having frequent PACs and atrial bigeminy Review of Systems Review of Systems: All systems reviewed & are unremarkable except as noted in HPI & below Nothing additional to add. Physical Exam Physical Exam: General: no acute distress and stated age Head: normocephalic, no masses, lesions, tenderness or abnormalities Eyes: conjunctiva are pink and non-injected, sclera clear Neck: supple, no adenopathy, no bruits, normal jugular venous pulse, no hepatojugular reflux Chest: normal shape and normal respiratory effort Lungs: clear to auscultation and percussion Cardiac Exam: - irregular rate & rhythm, no murmurs gallops or rubs - normal S1, normal S2 Pulses: 2(+) throughout Abdomen: abdomen soft, non-tender, no abnormal masses and no hepatosplenomegaly Musculoskeletal: no gait disturbance, no joint inflammation, no deforming arthritis Extremities: no edema and no cyanosis Neuro: grossly normal exam Results & Data Vital Signs (Past 12 Hours) Vital Signs Temp Pulse Resp BP Pulse Ox 12/24/18 10:51 70 22 91 12/24/18 07:49 36.7 C 87 20 139/71 95 12/24/18 07:23 99 H 20 95 12/24/18 02:53 36.7 C 83 16 121/59 L 94 12/23/18 23:38 36.8 C 70 16 124/55 L 97 Laboratory Results Laboratory Results - last 24 hr 12/23/18 12/23/18 12/24/18 17:04 17:04 06:19 WBC 9.17 10.82 H RBC 3.03 L 3.29 L Hgb 8.3 L 8.9 L Hct 26.0 L 28.7 L MCV 85.8 87.2 MCH 27.4 27.1 MCHC 31.9 L 31.0 L RDW Std Deviation 54.8 H 55.4 H RDW Coeff of Lexy 17.6 H 17.6 H Plt Count 280 300 MPV 7.9 8.0 PT INR Sodium 145 Potassium 3.2 L Chloride 108 H Carbon Dioxide 31 Anion Gap 7.0 BUN 93 H Creatinine 2.63 H D Est Cr Clr Drug Dosing 47.7 Est GFR ( Amer) 28.9 Est GFR (Non-Af Amer) 24.9 BUN/Creatinine Ratio 35.5 H Glucose 106 H Calcium 8.0 L Phosphorus Magnesium 1.9 Albumin 12/24/18 12/24/18 06:19 06:19 WBC RBC Hgb Hct MCV MCH MCHC RDW Std Deviation RDW Coeff of Lexy Plt Count MPV PT 14.9 H INR 1.5 H Sodium 145 Potassium 3.4 L Chloride 108 H Carbon Dioxide 32 Anion Gap 5.0 BUN 81 H Creatinine 2.11 H D Est Cr Clr Drug Dosing 67.3 Est GFR ( Amer) 37.7 Est GFR (Non-Af Amer) 32.6 BUN/Creatinine Ratio 38.2 H Glucose 101 H Calcium 8.3 L Phosphorus 3.8 D Magnesium Albumin 1.6 L Medications Administered Current Inpatient Medications Acetaminophen (Tylenol) 650 mg PO Q4H PRN PRN Reason: Moderate Pain Stop: 01/19/19 14:27 Last Admin: 12/22/18 21:27 Dose: 650 mg Documented by: Albuterol (Duoneb) 3 ml NEB QIDR [facility] Stop: 01/19/19 14:59 Last Admin: 12/24/18 10:49 Dose: 3 ml Documented by: Calamine/Phenol (Calmoseptine) 1 appln EXT Q6 PRN PRN Reason: Wound Care Stop: 01/19/19 14:27 Last Admin: 12/21/18 05:21 Dose: 1 appln Documented by: Chlorhexidine Gluconate (Peridex) 15 ml MT BID [facility] Stop: 01/19/19 20:59 Last Admin: 12/24/18 09:02 Dose: 15 ml Documented by: Ferrous Sulfate (Feosol) 325 mg PO QAM [facility] Stop: 01/20/19 08:59 Last Admin: 12/24/18 09:01 Dose: 325 mg Documented by: Guaifenesin (Mucinex) 1,200 mg PO BID [facility] Stop: 01/19/19 20:59 Last Admin: 12/24/18 09:02 Dose: 1,200 mg Documented by: Sodium Chloride (Nss) 250 mls @ 15 mls/hr IV .[id number] PRN PRN Reason: For Transfusion Stop: 01/19/19 20:16 Sodium Chloride (Nss) 250 mls @ 15 mls/hr IV .[id number] PRN PRN Reason: For Transfusion Stop: 01/20/19 19:06 Sodium Chloride (Nss) 250 mls @ 15 mls/hr IV .[id number] PRN PRN Reason: For Transfusion Stop: 01/21/19 16:18 Ioversol (Optiray 300) 50 ml IV ONCE PRN PRN Reason: Interaction Checking Stop: 12/25/18 11:35 Last Admin: 12/21/18 11:36 Dose: 50 ml Documented by: Levothyroxine Sodium (Synthroid) 100 mcg PO DAILYBB [facility] Stop: 01/20/19 06:29 Last Admin: 12/24/18 06:25 Dose: 100 mcg Documented by: Magnesium Hydroxide (Milk Of Magnesia) 30 ml PO HS PRN PRN Reason: Constipation Stop: 01/19/19 14:27 Metoprolol Tartrate (Lopressor) 75 mg PO BID17 [facility] Stop: 01/23/19 16:59 Nystatin (Mycostatin) 1 appln EXT DAILY [facility] Stop: 01/20/19 08:59 Last Admin: 12/24/18 09:03 Dose: 1 appln Documented by: Ondansetron HCl (Zofran) 4 mg IV Q4H PRN PRN Reason: Nausea And Vomiting Stop: 01/19/19 14:27 Pantoprazole Sodium (Protonix) 40 mg PO QAM [facility] Stop: 01/20/19 08:59 Last Admin: 12/24/18 09:01 Dose: 40 mg Documented by: Sertraline HCl (Zoloft) 100 mg PO QAM [facility] Stop: 01/20/19 08:59 Last Admin: 12/24/18 09:02 Dose: 100 mg Documented by: Simvastatin (Zocor) 10 mg PO QAM [facility] Stop: 01/20/19 08:59 Last Admin: 12/24/18 09:01 Dose: 10 mg Documented by: Vitamin B Complex/Folic Acid (Nephrocaps) [facility] [place] Stop: 01/21/19 08:59 Last Admin: 12/24/18 09:01 Dose: 1 cap Documented by:
--- NOTE | 2018-12-24 13:59 | Nephrology Progress Note ---
Date of Service December 24, 2018 Assessment & Plan (1) ADAM (acute kidney injury): Baseline creatinine 1.25 milligram/deciliter. Non oliguric. Creatinine continues to improve. IVF discontinued yesterday to avoid notable third spacing. Remains in a positive fluid balance. Furosemide has been held. Volume status acceptable. No additional changes at this time. Volume status and electrolytes are acceptable. Repeat metabolic profile will be repeated tomorrow AM and within 1 week of discharge. Diuretics may be restarted as needed. Medications are appropriately dosed for kidney function. 20 mEq KCl provided for hypokalemia. Will recheck tomorrow AM. No additional recommendations from nephrology at this time pending kidney function continues to improve. We will sign off for now. Please call with questions or concerns. (2) Renal mass, right: (3) Supratherapeutic INR: (4) Atrial fibrillation and flutter: (5) Hyponatremia: Associated with renal dysfunction and decreased EAV. Improved. Diuretics held. Subjective No acute events overnight. Urine has significantly cleared. Some bleeding around the catheter noted overnight. Marcel feels well. No acute complaints or concerns. No fevers or chills. Continue to deny pain. Review of Systems Review of Systems: All systems reviewed & are unremarkable except as noted in HPI & below Physical Exam Constitutional: + morbidly obese; no acute distress Eyes: no scleral abnormality and no corneal abnormality ENMT: Mouth: no oral mucosal abnormality and oral mucous membranes not dry Neck: trachea midline and + tracheostomy present Respiratory: normal respiratory effort; no respiratory distress and not tachypneic Auscultation: lungs clear to auscultation bilaterally Cardiovascular: Heart Sounds: normal S1 and normal S2 Vessels: no JVD Extremities: + edema Gastrointestinal (Abdomen): Percussion/Palpation: abdomen nontender and no guarding Musculoskeletal: Extremities: no cyanosis and no clubbing Skin: normal turgor and + dry skin Neurologic: Motor/Sensory: no tremor and no asterixis Genitourinary: Fitch draining yellow urine Results & Data Vital Signs (Past 12 Hours) Vital Signs Temp Pulse Resp BP Pulse Ox 12/24/18 11:50 36.5 C 71 18 130/69 97 12/24/18 10:51 70 22 91 12/24/18 07:49 36.7 C 87 20 139/71 95 12/24/18 07:23 99 H 20 95 12/24/18 02:53 36.7 C 83 16 121/59 L 94 Laboratory Results Laboratory Results - last 24 hr 12/23/18 12/23/18 12/24/18 17:04 17:04 06:19 WBC 9.17 10.82 H RBC 3.03 L 3.29 L Hgb 8.3 L 8.9 L Hct 26.0 L 28.7 L MCV 85.8 87.2 MCH 27.4 27.1 MCHC 31.9 L 31.0 L RDW Std Deviation 54.8 H 55.4 H RDW Coeff of Lexy 17.6 H 17.6 H Plt Count 280 300 MPV 7.9 8.0 PT INR Sodium 145 Potassium 3.2 L Chloride 108 H Carbon Dioxide 31 Anion Gap 7.0 BUN 93 H Creatinine 2.63 H D Est Cr Clr Drug Dosing 47.7 Est GFR ( Amer) 28.9 Est GFR (Non-Af Amer) 24.9 BUN/Creatinine Ratio 35.5 H Glucose 106 H Calcium 8.0 L Phosphorus Magnesium 1.9 Albumin 12/24/18 12/24/18 06:19 06:19 WBC RBC Hgb Hct MCV MCH MCHC RDW Std Deviation RDW Coeff of Lexy Plt Count MPV PT 14.9 H INR 1.5 H Sodium 145 Potassium 3.4 L Chloride 108 H Carbon Dioxide 32 Anion Gap 5.0 BUN 81 H Creatinine 2.11 H D Est Cr Clr Drug Dosing 67.3 Est GFR ( Amer) 37.7 Est GFR (Non-Af Amer) 32.6 BUN/Creatinine Ratio 38.2 H Glucose 101 H Calcium 8.3 L Phosphorus 3.8 D Magnesium Albumin 1.6 L PG Care Time/CCT Total # of Minutes Spent Total Time Spent with Patient: Total time spent is greater than 50% in coordination of care (as documented) at patient's floor/unit and/or counseling patient:
[2018-12-25] MEDS: ALBUT/IPRATROP 3MG/0.5MG NEB 3 ML VIAL NEB SCH ×3 (00:55→11:11)
[2018-12-25] MEDS: LEVOTHYROXINE SODIUM 100 MCG TABLET PO SCH ×2 (05:55→09:18)
[2018-12-25 07:19] LABS: Basophils # (auto) 0.04 K/uL (0-0.2); Basophils % (auto) 0.3 %; Eosinophils # (auto) 0.38 K/uL (0-0.5); Eosinophils % (auto) 3.2 %; Hematocrit (blood only) 28.8 % (42-52); Hemoglobin 8.8 g/dL (14.0-18.0); Immature Granulocytes # (auto) 0.31 K/uL (0.00-0.02); Immature Granulocytes % (auto) 2.6 %; Lymphocytes # (auto) 1.02 K/uL (1.2-3.4); Lymphocytes % (auto) 8.5 %; Mean Corpuscular Hemoglobin 27.2 pg (25-34); Mean Corpuscular Hgb Conc 30.6 g/dL (32-36); Mean Corpuscular Volume 88.9 fL (80-100); Mean Platelet Volume 8.2 fL (7.4-10.4); Monocytes # (auto) 1.22 K/uL (0.11-0.59); Monocytes % (auto) 10.1 %; Neutrophils # (auto) 9.08 K/uL (1.4-6.5); Neutrophils % (auto) 75.3 %; Platelet Count 359 K/uL (130-400); RDW Coefficient of Variation 17.6 % (11.5-14.5); RDW Standard Deviation 56.3 fL (36.4-46.3); Red Blood Count 3.24 M/uL (4.7-6.1); White Blood Count 12.05 K/uL (4.8-10.8)
[2018-12-25 07:31] LABS: INR 1.7 (0.9-1.1); Prothrombin Time 16.7 Seconds (9.0-12.0)
[2018-12-25 07:44] LABS: Albumin Level 1.6 gm/dl (3.4-5.0); BUN Creatinine Ratio 46.1 (10-20); Calcium 8.8 mg/dl (8.5-10.1); Creatinine Clr Calc Pharmacy 91.8 ml/min; Est GFR (Non-African American) 46.6; Potassium 3.6 mmol/L (3.5-5.1)
[2018-12-25 07:45] LABS: Phosphorus 3.3 mg/dl (2.5-4.9)
[2018-12-25] MEDS: CHLORHEXIDINE GLUCONATE 0.12% 480 ML MT SCH ×2 (09:18→20:02)
[2018-12-25] MEDS: guaiFENesin 600 MG TABCR PO SCH ×2 (09:24→20:02)
[2018-12-25] MEDS: SIMVASTATIN 10 MG TAB PO SCH (09:24)
[2018-12-25] MEDS: SERTRALINE HCL 50 MG TABLET PO SCH (09:25)
[2018-12-25] MEDS: FERROUS SULFATE 325 MG TAB PO SCH (09:25)
[2018-12-25] MEDS: NEPHROCAPS PO SCH (09:25)
[2018-12-25] MEDS: METOPROLOL TARTRATE 25 MG TAB PO SCH ×2 (09:25→16:30)
[2018-12-25] MEDS: PANTOprazole 40 MG TAB PO SCH (09:25)
[2018-12-25] MEDS: NYSTATIN POWDER 15GM BTL EXT SCH (09:26)
--- NOTE | 2018-12-25 10:23 | Infectious Disease Progress Nt ---
Date of Service December 25, 2018 Assessment & Plan (1) UTI (urinary tract infection) due to urinary indwelling Fitch catheter: has had 2 cultures with C. albicans, will give short course po fluconazole, 7 days. Subjective pt creat much improved, 1.5 today. remains afebrile and clinically stable off of abx. wbc today slightly elevated at 12. Repeat urine culture done over weekend, growing C. albicans (initial culture grew as well). Results & Data Vital Signs (Past 12 Hours) Vital Signs Temp Pulse Resp BP Pulse Ox 12/25/18 07:06 88 20 93 12/25/18 04:45 37.2 C 89 20 125/65 92 12/25/18 00:55 95 H 16 93 12/24/18 23:00 36.8 C 88 20 107/59 L 98 Laboratory Results Microbiology 12/23/18 Unknown Urine,Indwelling Cath Urine Culture - Final Julia albicans 12/20/18 21:30 Urine,Straight Cath Urine Culture - Final Julia albicans 12/20/18 16:30 Urine,Clean Catch Urine Culture - Final Stenotrophomonas maltophilia PG Care Time/CCT Total # of Minutes Spent Total Time Spent with Patient: Total time spent is greater than 50% in coordination of care (as documented) at patient's floor/unit and/or counseling patient:
--- NOTE | 2018-12-25 11:52 | Cardiology Progress Note ---
Date of Service December 25, 2018 Assessment & Plan (1) Gross hematuria: (2) Hematoma: (3) Severe protein-calorie malnutrition: (4) Elevated INR: (5) Nonsustained ventricular tachycardia: (6) Morbid obesity with BMI of 60.0-69.9, adult: (7) KEARA (obstructive sleep apnea): (8) Obesity hypoventilation syndrome: The patient is still having baseline ectopy on the monitor. No additional cardiac complaints. Subjective Spoke to the patient and his family who were present in the room. His status is unchanged. Review of Systems Review of Systems: All systems reviewed & are unremarkable except as noted in HPI & below Nothing additional to add. Physical Exam Physical Exam: General: no acute distress and stated age Head: normocephalic, no masses, lesions, tenderness or abnormalities Eyes: conjunctiva are pink and non-injected, sclera clear Neck: supple, no adenopathy, no bruits, normal jugular venous pulse, no hepatojugular reflux Chest: normal shape and normal respiratory effort Lungs: clear to auscultation and percussion Cardiac Exam: - regular rate & rhythm, no murmurs gallops or rubs - normal S1, normal S2 Pulses: 2(+) throughout Abdomen: abdomen soft, non-tender, no abnormal masses and no hepatosplenomegaly Musculoskeletal: no gait disturbance, no joint inflammation, no deforming arthritis Extremities: no edema and no cyanosis Neuro: grossly normal exam Results & Data Vital Signs (Past 12 Hours) Vital Signs Temp Pulse Resp BP Pulse Ox 12/25/18 11:26 37.1 C 74 16 99/53 L 95 12/25/18 11:12 73 18 93 12/25/18 07:06 88 20 93 12/25/18 04:45 37.2 C 89 20 125/65 92 12/25/18 00:55 95 H 16 93 Laboratory Results Laboratory Results - last 24 hr 12/25/18 12/25/18 12/25/18 07:00 07:00 07:00 WBC 12.05 H RBC 3.24 L Hgb 8.8 L Hct 28.8 L MCV 88.9 MCH 27.2 MCHC 30.6 L RDW Std Deviation 56.3 H RDW Coeff of Lexy 17.6 H Plt Count 359 MPV 8.2 Immature Gran % (Auto) 2.6 Neut % (Auto) 75.3 Lymph % (Auto) 8.5 [place] % (Auto) 10.1 Eos % (Auto) 3.2 Baso % (Auto) 0.3 Immature Gran # (Auto) 0.31 H Neut # (Auto) 9.08 H Lymph # (Auto) 1.02 L [place] # (Auto) 1.22 H Eos # (Auto) 0.38 Baso # (Auto) 0.04 PT 16.7 H INR 1.7 H Sodium 145 Potassium 3.6 Chloride 109 H Carbon Dioxide 30 Anion Gap 6.0 BUN 72 H Creatinine 1.57 H D Est Cr Clr Drug Dosing 91.8 Est GFR ( Amer) 54.0 Est GFR (Non-Af Amer) 46.6 BUN/Creatinine Ratio 46.1 H Glucose 100 H Calcium 8.8 Phosphorus 3.3 Magnesium 2.0 Albumin 1.6 L Medications Administered Current Inpatient Medications Acetaminophen (Tylenol) 650 mg PO Q4H PRN PRN Reason: Moderate Pain Stop: 01/19/19 14:27 Last Admin: 12/22/18 21:27 Dose: 650 mg Documented by: Albuterol (Duoneb) 3 ml NEB QIDR [facility] Stop: 01/19/19 14:59 Last Admin: 12/25/18 11:11 Dose: 3 ml Documented by: Calamine/Phenol (Calmoseptine) 1 appln EXT Q6 PRN PRN Reason: Wound Care Stop: 01/19/19 14:27 Last Admin: 12/21/18 05:21 Dose: 1 appln Documented by: Chlorhexidine Gluconate (Peridex) 15 ml MT BID [facility] Stop: 01/19/19 20:59 Last Admin: 12/25/18 09:18 Dose: 15 ml Documented by: Ferrous Sulfate (Feosol) 325 mg PO QAM [facility] Stop: 01/20/19 08:59 Last Admin: 12/25/18 09:25 Dose: 325 mg Documented by: Fluconazole (Diflucan) 100 mg PO QAM [facility] Stop: 01/04/19 10:29 Guaifenesin (Mucinex) 1,200 mg PO BID [facility] Stop: 01/19/19 20:59 Last Admin: 12/25/18 09:24 Dose: 1,200 mg Documented by: Sodium Chloride (Nss) 250 mls @ 15 mls/hr IV .[id number] PRN PRN Reason: For Transfusion Stop: 01/19/19 20:16 Sodium Chloride (Nss) 250 mls @ 15 mls/hr IV .[id number] PRN PRN Reason: For Transfusion Stop: 01/20/19 19:06 Sodium Chloride (Nss) 250 mls @ 15 mls/hr IV .[id number] PRN PRN Reason: For Transfusion Stop: 01/21/19 16:18 Levothyroxine Sodium (Synthroid) 100 mcg PO DAILYBB [facility] Stop: 01/20/19 06:29 Last Admin: 12/25/18 09:18 Dose: 100 mcg Documented by: Magnesium Hydroxide (Milk Of Magnesia) 30 ml PO HS PRN PRN Reason: Constipation Stop: 01/19/19 14:27 Metoprolol Tartrate (Lopressor) 75 mg PO BID17 [facility] Stop: 01/23/19 16:59 Last Admin: 12/25/18 09:25 Dose: 75 mg Documented by: Nystatin (Mycostatin) 1 appln EXT DAILY [facility] Stop: 01/20/19 08:59 Last Admin: 12/25/18 09:26 Dose: 1 appln Documented by: Ondansetron HCl (Zofran) 4 mg IV Q4H PRN PRN Reason: Nausea And Vomiting Stop: 01/19/19 14:27 Pantoprazole Sodium ([facility]) [facility] [place]: 01/20/19 08:59 Last Admin: 12/25/18 09:25 Dose: 40 mg Documented by: Sertraline HCl (Zoloft) 100 mg PO [facility] Stop: 01/20/19 08:59 Last Admin: 12/25/18 09:25 Dose: 100 mg Documented by: Simvastatin (Zocor) 10 mg PO QAM [facility] Stop: 01/20/19 08:59 Last Admin: 12/25/18 09:24 Dose: 10 mg Documented by: Vitamin B Complex/Folic Acid (Nephrocaps) [facility] [place] Stop: 01/21/19 08:59 Last Admin: 12/25/18 09:25 Dose: 1 cap Documented by:
[2018-12-25] MEDS: FLUCONAZOLE 100 MG TAB PO SCH (12:21)
--- NOTE | 2018-12-25 16:08 | Hospitalist Progress Note ---
Date of Service December 25, 2018 Assessment & Plan (1) ADAM (acute kidney injury): Presented with Cr of 8.4 on admission, secondary to obstruction--> Fitch bulb was in urethra and causing trauma in setting of INR>10 with gross hematuria. Post-obstructive ADAM with ATN now resolving. - Nephrology followed, but signed off on 12/25. - Appreciate urologic management -> Removed prior Fitch and had large amount of bloody and purulent urine drain out--> 3L total initially. Replaced with Fitch . Will follow outpatient. - Can check a Cr in 1 week to see where baseline stands. On 12/25, Cr was down to 1.6. (2) UTI (urinary tract infection) due to urinary indwelling Fitch catheter: With UTI on admission secondary to profound obstruction as above. Purulent urine noted to drain out after Fitch replaced by urology. Ur cx from 12/20 grew Stenotrophomonas. ID felt Stenotroph was a colonizer and to not treat. Two urine cultures grew Julia. - Per ID, treating with fluconazole x 7 days. (3) Gross hematuria: With large amount of hematuria secondary to Fitch trauma in setting of INR>10 as above. (4) Anemia: Acute blood loss anemia in setting of chronic disease anemia and Fe- deficiency anemia. - Blood loss from gross hematuria and also with large hematoma in RUE from straining to pull himself upright/strain. Hematuria now resolved except some scant oozing at meatus. - Baseline Hgb is 9-10 - Received 7 units PRBCs so far this admission. (5) Supratherapeutic INR: INR of 10.4 on admission. - Received Vit K 10 mg IV in the ER, received FFP 2 units, then 2 more doses of Vit K after that on subsequent days. INR was down at 1.3. - Continue to hold warfarin - May need more PO Vit K due to poor nutrition - Does not have evidence of liver disease on labs or imaging - Follow INR in AM (6) Chronic indwelling Fitch catheter: Since 2016, has been bed-bound since that time. - Fitch was exchanged on 12/20 as above (7) Heart failure, systolic, due to idiopathic cardiomyopathy: Chronic systolic CHF. Last ECHO in 2015 showing LVEF of 40%. Now with normal EF but with moderately reduced right sided RV function likely secondary to OHS and KEARA. - Continue holding Lasix - Have since restarted metoprolol as per Cardiology - For now, continue metoprolol and increased to 50 mg po bid of tartrate as per Cardiology for frequent PVCs, NSVT (8) Atrial fibrillation and flutter: History of such and has pacer after aflutter ablation. Currently in NSR, paced rhythm, frequent PVCs and nonsustained VT runs. - Held metoprolol initially due to acute blood loss and ongoing bleeding but BPs now stable - Is on warfarin typically but being held as above. - Appreciate cardio consult (9) KEARA (obstructive sleep apnea): - s/p trach placement 2016 - previous noncompliance with CPAP for KEARA (10) Obesity hypoventilation syndrome: - noted, with trach in place (11) H/O tracheostomy: - spaced in 2015 following intubation and mechanical ventilation for respiratory failure - noncompliance with CPAP for KEARA and the trach was placed as a result - Was changed during last admission on 12/02/18 -trach care as per RT (12) Abnormal CT of the abdomen: With a h/o numerous extraperitoneal fluid collections with some up to 5cm in size, ? if these areas were microabscesses vs small hematomas vs a combination of the two. Consider old hematoma from even previous admission as well as possible. New ones noted with INR being significantly supratherapeutic again. - Repeat CT 12/21 with decreased size of collections - Follow along with imaging - Cystogram here without evidence of bladder perforation - If hgb drops without obvious source, would repeat CT abdomen (13) Renal mass, right: - Hx of right renal mass, unclear if ever diagnosed with cancer. (14) Depression: - Continue sertraline 100 mg daily and consider increasing due to signs of depression like apathy over healthcare needs (15) Hypothyroidism: - Continue levothyroxine 100 mcg daily TSH here is 3.48 (16) Morbid obesity with BMI of 60.0-69.9, adult: - BMI of 56.6 this time, was over 60 during last admission - HH/DM diet (17) Venous insufficiency: - Chronic, wound consult for ulcerations on the R calf - Lymphedema at baseline (18) Lymphedema: - Wound consulted - appreciate (19) Dyslipidemia: - Cont statin therapy (20) Severe protein-calorie malnutrition: Albumin severely low at 1.6 and persists. - Add nephrocaps for improved wound healing - Follow labs, BMP, Phos, albumin (21) Asthma: - Hx of such, continue nebs QID as per home meds, no acute issues but is requiring 40% FiO2 via trach collar (22) Nonsustained ventricular tachycardia: frequent PVCs and short runs of VT VT runs now only 2-4 beats but frequent, also continues with frequent bigem, asymptomatic LVEF now normalized -restarted metoprolol and increased to 50mg bid follow on tele -appreciate Cardio consult -replace K+ (23) Hematoma: RUE, from straining, edema improving now -elevate arm for swelling, ice (24) DVT prophylaxis: - no chemical ppx ordered with supratherapeutic INR, gross hematuria - teds/scds not able to be placed due to lymphedema and chronic wounds Subjective Feels like he has sometimes been on and off short of breath. Otherwise, no major complaints. No pain in the penis or bladder area. Review of Systems Review of Systems: All systems reviewed & are unremarkable except as noted in HPI & below Physical Exam Constitutional: WD/WN, vitals as above + morbidly obese Eyes: EOM intact bilaterally; no conjunctival abnormality ENMT: external ear and nose normal, oropharynx normal Neck: trachea midline, no thyromegaly normal visual inspection Respiratory: normal respiratory effort, lungs clear to auscultation no respiratory distress Cardiovascular: RRR, no murmur, no edema Gastrointestinal (Abdomen): Inspection/Auscultation: abdomen normal to inspection; abdomen not distended Musculoskeletal: no cyanosis or clubbing, extremities motor strength 5/5 Skin: no rashes, warm and dry Neurologic: moves all extremities and awake Psychiatric: Orientation: alert, oriented to person and cooperative Results & Data Vital Signs (Past 12 Hours) Vital Signs Temp Pulse Pulse Resp BP Pulse Ox 12/25/18 15:48 74 12/25/18 11:26 37.1 C 74 16 99/53 L 95 12/25/18 11:12 73 18 93 12/25/18 07:06 88 20 93 12/25/18 04:45 37.2 C 89 20 125/65 92 PG Care Time/CCT Total # of Minutes Spent Total Time Spent with Patient: Total time spent is greater than 50% in coordination of care (as documented) at patient's floor/unit and/or counseling patient: (1) Anemia Anemia type: other cause (2) Depression Depression Type: other depression Qualified Code(s): F32.89 - Other specified depressive episodes (3) Hypothyroidism Hypothyroidism type: acquired Qualified Code(s): E03.9 - Hypothyroidism, unspecified (4) Asthma Asthma severity: unspecified severity Asthma persistence: unspecified Asthma complication type: unspecified Qualified Code(s): J45.909 - Unspecified asthma, uncomplicated
[2018-12-25] MEDS: ALBUT/IPRATROP 3MG/0.5MG NEB 3 ML VIAL NEB PRN (17:51)
[2018-12-26] MEDS: LEVOTHYROXINE SODIUM 100 MCG TABLET PO SCH (06:23)
[2018-12-26 06:24] LABS: Hematocrit (blood only) 27.9 % (42-52); Hemoglobin 8.4 g/dL (14.0-18.0); Mean Corpuscular Hemoglobin 27.5 pg (25-34); Mean Corpuscular Hgb Conc 30.1 g/dL (32-36); Mean Corpuscular Volume 91.5 fL (80-100); Mean Platelet Volume 8.1 fL (7.4-10.4); Platelet Count 376 K/uL (130-400); RDW Standard Deviation 58.2 fL (36.4-46.3); Red Blood Count 3.05 M/uL (4.7-6.1)
[2018-12-26 06:49] LABS: Albumin Level 1.5 gm/dl (3.4-5.0); Calcium 8.7 mg/dl (8.5-10.1); Creatinine Clr Calc Pharmacy 96.7 ml/min; Est GFR (African American) 57.5; Est GFR (Non-African American) 49.6; Potassium 3.7 mmol/L (3.5-5.1)
[2018-12-26 06:50] LABS: Phosphorus 3.3 mg/dl (2.5-4.9)
[2018-12-26] MEDS: METOPROLOL TARTRATE 25 MG TAB PO SCH ×2 (09:03→16:53)
[2018-12-26] MEDS: FERROUS SULFATE 325 MG TAB PO SCH (09:03)
[2018-12-26] MEDS: FLUCONAZOLE 100 MG TAB PO SCH (09:03)
[2018-12-26] MEDS: guaiFENesin 600 MG TABCR PO SCH ×2 (09:04→21:07)
[2018-12-26] MEDS: NEPHROCAPS PO SCH (09:05)
[2018-12-26] MEDS: CHLORHEXIDINE GLUCONATE 0.12% 480 ML MT SCH ×2 (09:05→21:07)
[2018-12-26] MEDS: SIMVASTATIN 10 MG TAB PO SCH (09:06)
[2018-12-26] MEDS: NYSTATIN POWDER 15GM BTL EXT SCH (09:06)
[2018-12-26] MEDS: PANTOprazole 40 MG TAB PO SCH (09:06)
[2018-12-26] MEDS: SERTRALINE HCL 50 MG TABLET PO SCH (09:06)
[2018-12-26] MEDS: ALBUT/IPRATROP 3MG/0.5MG NEB 3 ML VIAL NEB PRN ×2 (10:53→18:02)
[2018-12-26 11:13] LABS: Prothrombin Time 19.7 Seconds (9.0-12.0)
--- NOTE | 2018-12-26 11:35 | XRay Report ---
XR chest 1V portable HISTORY: Shortness of breath COMPARISON: Chest 12/20/2018. FINDINGS: Tracheostomy tube terminates approximately 4.6 cm from the alysha. Left-sided dual-chamber pacemaker is again noted. No definite pneumothorax. The heart remains enlarged. There are low lung vo lumes. Interval progression of the asymmetric pulmonary edema and bilateral pleural effusions. IMPRESSION: Interval progression of the asymmetric pulmonary edema and bilateral pleural effusions. Electronically signed by: Julien Linton M.D. 12/26/2018 11:34 AM
--- NOTE | 2018-12-26 11:55 | Cardiology Progress Note ---
Date of Service December 26, 2018 Assessment & Plan (1) Gross hematuria: (2) Hematoma: (3) Severe protein-calorie malnutrition: (4) Elevated INR: (5) Nonsustained ventricular tachycardia: (6) Morbid obesity with BMI of 60.0-69.9, adult: (7) KEARA (obstructive sleep apnea): (8) Obesity hypoventilation syndrome: The patient has baseline ectopy. I would continue his current medications. No additional cardiac testing at this time. Subjective No new cardiac complaints. Review of Systems Review of Systems: All systems reviewed & are unremarkable except as noted in HPI & below Nothing additional. Physical Exam Physical Exam: General: No acute distress, morbidly obese Head: normocephalic, no masses, lesions, tenderness or abnormalities Eyes: conjunctiva are pink and non-injected, sclera clear Neck: Patient has a permanent tracheostomy Chest: normal shape and normal respiratory effort Lungs: clear to auscultation and percussion Cardiac Exam: - regular rate & rhythm, no murmurs gallops or rubs - normal S1, normal S2 Pulses: 2(+) throughout Abdomen: abdomen soft, non-tender, no abnormal masses and no hepatosplenomegaly Musculoskeletal: no gait disturbance, no joint inflammation, no deforming arthritis Extremities: no edema and no cyanosis Neuro: grossly normal exam Results & Data Vital Signs (Past 12 Hours) Vital Signs Temp Pulse Pulse Resp BP Pulse Ox 12/26/18 11:35 37.1 C 60 24 110/53 L 90 12/26/18 10:55 68 18 96 12/26/18 07:39 98 H 12/26/18 07:32 37.4 C 104 H 20 130/70 92 12/26/18 04:41 36.9 C 87 18 148/74 H 96 12/26/18 01:50 74 Laboratory Results Laboratory Results - last 24 hr 12/26/18 12/26/18 12/26/18 05:40 05:40 10:45 WBC 12.40 H RBC 3.05 L Hgb 8.4 L Hct 27.9 L MCV 91.5 MCH 27.5 MCHC 30.1 L RDW Std Deviation 58.2 H RDW Coeff of Lexy 18.0 H Plt Count 376 MPV 8.1 PT INR Sodium 147 H Potassium 3.7 Chloride 110 H Carbon Dioxide 32 Anion Gap 5.0 BUN 70 H Creatinine 1.49 H Est Cr Clr Drug Dosing 96.7 Est GFR ( Amer) 57.5 Est GFR (Non-Af Amer) 49.6 BUN/Creatinine Ratio 47.0 H Glucose 97 Calcium 8.7 Phosphorus 3.3 Magnesium 2.0 NT-Pro-B Natriuret Pep 86277 H Albumin 1.5 L Procalcitonin 12/26/18 12/26/18 10:45 10:45 WBC RBC Hgb Hct MCV MCH MCHC RDW Std Deviation RDW Coeff of Lexy Plt Count MPV PT 19.7 H INR 2.0 H Sodium Potassium Chloride Carbon Dioxide Anion Gap BUN Creatinine Est Cr Clr Drug Dosing Est GFR ( Amer) Est GFR (Non-Af Amer) BUN/Creatinine Ratio Glucose Calcium Phosphorus Magnesium NT-Pro-B Natriuret Pep Albumin Procalcitonin 0.10 Medications Administered Current Inpatient Medications Acetaminophen (Tylenol) 650 mg PO Q4H PRN PRN Reason: Moderate Pain Stop: 01/19/19 14:27 Last Admin: 12/22/18 21:27 Dose: 650 mg Documented by: Albuterol (Duoneb) 3 ml NEB Q4 PRN PRN Reason: Shortness Of Breath Or Wheezing Stop: 01/24/19 15:59 Last Admin: 12/26/18 10:53 Dose: 3 ml Documented by: Calamine/Phenol (Calmoseptine) 1 appln EXT Q6 PRN PRN Reason: Wound Care Stop: 01/19/19 14:27 Last Admin: 12/21/18 05:21 Dose: 1 appln Documented by: Chlorhexidine Gluconate (Peridex) 15 ml MT BID MI Stop: 01/19/19 20:59 Last Admin: 12/26/18 09:05 Dose: 15 ml Documented by: Ferrous Sulfate (Feosol) 325 mg PO QAM MI Stop: 01/20/19 08:59 Last Admin: 12/26/18 09:03 Dose: 325 mg Documented by: Fluconazole (Diflucan) 100 mg PO QAM MI Stop: 01/04/19 10:29 Last Admin: 12/26/18 09:03 Dose: 100 mg Documented by: Furosemide (Lasix) 40 mg IV NOW STA Stop: 12/26/18 12:06 Guaifenesin (Mucinex) 1,200 mg PO BID MI Stop: 01/19/19 20:59 Last Admin: 12/26/18 09:04 Dose: 1,200 mg Documented by: Sodium Chloride (Nss) 250 mls @ 15 mls/hr IV .[id number] PRN PRN Reason: For Transfusion Stop: 01/19/19 20:16 Sodium Chloride (Nss) 250 mls @ 15 mls/hr IV .[id number] PRN PRN Reason: For Transfusion Stop: 01/20/19 19:06 Sodium Chloride (Nss) 250 mls @ 15 mls/hr IV .[id number] PRN PRN Reason: For Transfusion Stop: 01/21/19 16:18 Levothyroxine Sodium (Synthroid) 100 mcg PO DAILYBB [facility] Stop: 01/20/19 06:29 Last Admin: 12/26/18 06:23 Dose: 100 mcg Documented by: Magnesium Hydroxide (Milk Of Magnesia) 30 ml PO HS PRN PRN Reason: Constipation Stop: 01/19/19 14:27 Metoprolol Tartrate (Lopressor) 75 mg PO BID17 [facility] Stop: 01/23/19 16:59 Last Admin: 12/26/18 09:03 Dose: 75 mg Documented by: Nystatin (Mycostatin) 1 appln EXT DAILY [facility] Stop: 01/20/19 08:59 Last Admin: 12/26/18 09:06 Dose: 1 appln Documented by: Ondansetron HCl (Zofran) 4 mg IV Q4H PRN PRN Reason: Nausea And Vomiting Stop: 01/19/19 14:27 Pantoprazole Sodium (Protonix) 40 mg PO QAM [facility] Stop: 01/20/19 08:59 Last Admin: 12/26/18 09:06 Dose: 40 mg Documented by: Sertraline HCl (Zoloft) 100 mg PO QAM [facility] Stop: 01/20/19 08:59 Last Admin: 12/26/18 09:06 Dose: 100 mg Documented by: Simvastatin (Zocor) 10 mg PO QAM [facility] Stop: 01/20/19 08:59 Last Admin: 12/26/18 09:06 Dose: 10 mg Documented by: Vitamin B Complex/Folic Acid (Nephrocaps) 1 cap PO QAM [facility] Stop: 01/21/19 08:59 Last Admin: 12/26/18 09:05 Dose: 1 cap Documented by:
[2018-12-26] MEDS ORDERED: FUROSEMIDE 40 MG/4 ML VIAL IV STA (12:05)
[2018-12-26] MEDS ORDERED: FUROSEMIDE 40 MG in SYRINGE 0 ML IV ONE (12:15)
--- NOTE | 2018-12-26 15:01 | Hospitalist Progress Note ---
Date of Service December 26, 2018 Assessment & Plan (1) Heart failure, systolic, due to idiopathic cardiomyopathy: Acute on chronic systolic CHF. Last echo in 2016 showing LVEF of 40%. Now with normal EF but with moderately reduced right sided RV function likely secondary to OHS and KEARA. - Continue metoprolol and increased to 50 mg po bid of tartrate as per cardiology for frequent PVCs, NSVT - Ordered CXR and BNP on 12/26 for increased shortness of breath. Indicated increased volume. Weight is up 45 kg from admission, but is likely inaccurate. - Gave Lasix IV 40mg x 1 on 12/25 (2) Supratherapeutic INR: INR of 10.4 on admission. - Received Vit K 10 mg IV in the ER, received FFP 2 units, then 2 more doses of Vit K after that on subsequent days. INR was down at 1.3. - Continue to hold warfarin - May need more PO Vit K due to poor nutrition - Does not have evidence of liver disease on labs or imaging - Follow INR in AM - On 12/26, his INR was back up to 2.0 despite being off warfarin. (3) Chronic indwelling Fitch catheter: Since 2015, has been bed-bound since that time. - Fitch was exchanged on 12/20 as above (4) ADAM (acute kidney injury): Presented with Cr of 8.4 on admission, secondary to obstruction--> Fitch bulb was in urethra and causing trauma in setting of INR>10 with gross hematuria. Post-obstructive ADAM with ATN now resolving. - Nephrology followed, but signed off on 12/25. - Appreciate urologic management -> Removed prior Fitch and had large amount of bloody and purulent urine drain out--> 3L total initially. Replaced with Fitch 12/20. Will follow outpatient. - Can check a Cr in 1 week to see where baseline stands. On 12/26, Cr was down to 1.5. (5) UTI (urinary tract infection) due to urinary indwelling Fitch catheter: With UTI on admission secondary to profound obstruction as above. Purulent urine noted to drain out after Fitch replaced by urology. Ur cx from 12/20 grew Stenotrophomonas. ID felt Stenotroph was a colonizer and to not treat. Two urine cultures grew Julia. - Per ID, treating with fluconazole x 7 days. (6) Gross hematuria: With large amount of hematuria secondary to Fitch trauma in setting of INR>10 as above. (7) Anemia: Acute blood loss anemia in setting of chronic disease anemia and Fe- deficiency anemia. - Blood loss from gross hematuria and also with large hematoma in RUE from straining to pull himself upright/strain. Hematuria now resolved except some scant oozing at meatus. - Baseline Hgb is 9-10 - Received 7 units PRBCs so far this admission. (8) Atrial fibrillation and flutter: History of such and has pacer after aflutter ablation. Currently in NSR, paced rhythm, frequent PVCs and nonsustained VT runs. - Held metoprolol initially due to acute blood loss and ongoing bleeding but BPs now stable - Is on warfarin typically but being held as above. - Appreciate cardio consult (9) KEARA (obstructive sleep apnea): - s/p trach placement 2015 - previous noncompliance with CPAP for KEARA (10) Obesity hypoventilation syndrome: - noted, with trach in place (11) H/O tracheostomy: - spaced in 2015 following intubation and mechanical ventilation for respiratory failure - noncompliance with CPAP for KEARA and the trach was placed as a result - Was changed during last admission on 12/02/18 -trach care as per RT (12) Abnormal CT of the abdomen: With a h/o numerous extraperitoneal fluid collections with some up to 5cm in size, ? if these areas were microabscesses vs small hematomas vs a combination of the two. Consider old hematoma from even previous admission as well as possible. New ones noted with INR being significantly supratherapeutic again. - Repeat CT 12/21 with decreased size of collections - Follow along with imaging - Cystogram here without evidence of bladder perforation - If hgb drops without obvious source, would repeat CT abdomen (13) Renal mass, right: - Hx of right renal mass, unclear if ever diagnosed with cancer. (14) Depression: - Continue sertraline 100 mg daily and consider increasing due to signs of depression like apathy over healthcare needs (15) Hypothyroidism: - Continue levothyroxine 100 mcg daily TSH here is 3.48 (16) Morbid obesity with BMI of 60.0-69.9, adult: - BMI of 56.6 this time, was over 60 during last admission - HH/DM diet (17) Venous insufficiency: - Chronic, wound consult for ulcerations on the R calf - Lymphedema at baseline (18) Lymphedema: - Wound consulted - appreciate (19) Dyslipidemia: - Cont statin therapy (20) Severe protein-calorie malnutrition: Albumin severely low at 1.6 and persists. - Add nephrocaps for improved wound healing - Follow labs, BMP, Phos, albumin (21) Asthma: - Hx of such, continue nebs QID as per home meds, no acute issues but is requiring 40% FiO2 via trach collar (22) Nonsustained ventricular tachycardia: frequent PVCs and short runs of VT VT runs now only 2-4 beats but frequent, also continues with frequent bigem, asymptomatic LVEF now normalized -restarted metoprolol and increased to 50mg bid follow on tele -appreciate Cardio consult -replace K+ (23) Hematoma: RUE, from straining, edema improving now. - Elevate arm for swelling, ice (24) DVT prophylaxis: No chemical ppx ordered with supratherapeutic INR, gross hematuria - SCDs not able to be placed due to lymphedema and chronic wounds Subjective Reports he is short of breath. Otherwise, unable to complete ROS due to difficulty with trach and communication. Review of Systems Review of Systems: Other Unobtainable due to tracheostomy Physical Exam Constitutional: WD/WN, vitals as above + morbidly obese Eyes: EOM intact bilaterally; no conjunctival abnormality ENMT: external ear and nose normal, oropharynx normal Neck: trachea midline, no thyromegaly normal visual inspection Respiratory: normal respiratory effort, lungs clear to auscultation no respiratory distress Cardiovascular: RRR, no murmur, no edema Gastrointestinal (Abdomen): Inspection/Auscultation: abdomen normal to inspection; abdomen not distended Musculoskeletal: no cyanosis or clubbing, extremities motor strength 5/5 Skin: no rashes, warm and dry Neurologic: moves all extremities and awake Psychiatric: Orientation: alert, oriented to person and cooperative Results & Data Vital Signs (Past 12 Hours) Vital Signs Temp Pulse Pulse Resp BP Pulse Ox 12/26/18 12:22 107/58 L 12/26/18 11:35 37.1 C 60 24 110/53 L 90 12/26/18 10:55 68 18 96 12/26/18 07:39 98 H 12/26/18 07:32 37.4 C 104 H 20 130/70 92 12/26/18 04:41 36.9 C 87 18 148/74 H 96 PG Care Time/CCT Total # of Minutes Spent Total Time Spent with Patient: Total time spent is greater than 50% in coordination of care (as documented) at patient's floor/unit and/or counseling p atient: (1) Anemia Anemia type: other cause (2) Depression Depression Type: other depression Qualified Code(s): F32.89 - Other specified depressive episodes (3) Hypothyroidism Hypothyroidism type: acquired Qualified Code(s): E03.9 - Hypothyroidism, unspecified (4) Asthma Asthma severity: unspecified severity Asthma persistence: unspecified Asthma complication type: unspecified Qualified Code(s): J45.909 - Unspecified asthma, uncomplicated
[2018-12-27] MEDS: ALBUT/IPRATROP 3MG/0.5MG NEB 3 ML VIAL NEB PRN ×2 (04:27→14:15)
[2018-12-27] MEDS: LEVOTHYROXINE SODIUM 100 MCG TABLET PO SCH (06:13)
[2018-12-27 07:58] LABS: Hemoglobin 8.2 g/dL (14.0-18.0); Mean Corpuscular Hemoglobin 27.2 pg (25-34); Mean Corpuscular Hgb Conc 29.3 g/dL (32-36); Mean Corpuscular Volume 92.7 fL (80-100); Mean Platelet Volume 7.8 fL (7.4-10.4); Platelet Count 312 K/uL (130-400); RDW Coefficient of Variation 18.2 % (11.5-14.5); RDW Standard Deviation 60.5 fL (36.4-46.3); Red Blood Count 3.02 M/uL (4.7-6.1); White Blood Count 13.45 K/uL (4.8-10.8)
[2018-12-27 08:35] LABS: BUN Creatinine Ratio 46.8 (10-20); Calcium 8.4 mg/dl (8.5-10.1); Creatinine Clr Calc Pharmacy 107.8 ml/min; Est GFR (African American) 65.3; Est GFR (Non-African American) 56.4; Potassium 3.9 mmol/L (3.5-5.1)
[2018-12-27] MEDS ORDERED: FUROSEMIDE 40 MG/4 ML VIAL IV STA (09:29)
[2018-12-27] MEDS: METOPROLOL TARTRATE 25 MG TAB PO SCH (10:23)
[2018-12-27] MEDS: FERROUS SULFATE 325 MG TAB PO SCH (10:23)
[2018-12-27] MEDS: guaiFENesin 600 MG TABCR PO SCH ×2 (10:23→21:48)
[2018-12-27] MEDS: FLUCONAZOLE 100 MG TAB PO SCH (10:23)
[2018-12-27] MEDS: NYSTATIN POWDER 15GM BTL EXT SCH (10:24)
[2018-12-27] MEDS: CHLORHEXIDINE GLUCONATE 0.12% 480 ML MT SCH ×2 (10:24→21:48)
[2018-12-27] MEDS: NEPHROCAPS PO SCH (10:24)
[2018-12-27] MEDS: PANTOprazole 40 MG TAB PO SCH (10:24)
[2018-12-27] MEDS: SERTRALINE HCL 50 MG TABLET PO SCH (10:25)
[2018-12-27] MEDS: SIMVASTATIN 10 MG TAB PO SCH (10:25)
[2018-12-27] MEDS ORDERED: FUROSEMIDE 40 MG in SYRINGE 0 ML IV ONE (11:15)
[2018-12-27 12:01] LABS: Appearance Urine Turbid (Clear); Color Urine Red
[2018-12-27 12:03] LABS: Ictotest Urine Positive (Negative); Specific Gravity Urine 1.022 (1.000-1.030); Sulfosalicylic Acid Urine Positive (Negative)
[2018-12-27 12:05] LABS: Bilirubin Urine 2+ (Negative); Blood Urine 2+ (Negative); Glucose Urine UA Negative (Negative); Ketones Urine Negative (Negative); Nitrite Urine Positive (Negative); Protein Urine 2+ (Negative); Urobilinogen Urine Negative (Negative)
[2018-12-27 12:06] LABS: Leukocyte Esterase Urine 3+ (Negative)
[2018-12-27 12:08] LABS: Bacteria Urine 4+ (Negative); RBC Urine >30 /hpf (0-4); WBC Urine >30 /hpf (0-5)
--- NOTE | 2018-12-27 14:59 | XRay Report ---
XR chest 1V portable CLINICAL HISTORY: Shortness of breath COMPARISON STUDY: 12/26/2018 FINDINGS: The heart remains enlarged. Probable mild pulmonary vascular congestion. There is a left preston bclavian dual-chamber central venous pacemaker. A tracheostomy tube is visualized in satisfactory pos ition. Bilateral pleural effusions right greater than left are suspected. There are persistent bilate ral airspace opacities right greater than left. IMPRESSION: No significant change from the prior study. Persistent cardiomegaly and bilateral pleural effusions right greater than left. Bilateral pulmonary airspace opacities right greater than left (p neumonia versus atelectasis). Probable mild pulmonary vascular congestion. Electronically signed by: Denton Lance M.D. 12/27/2018 2:58 PM
--- NOTE | 2018-12-27 15:51 | Critical Care Consultation ---
Date of Consultation December 27, 2018 Assessment & Plan (1) Admitted to intensive care unit: Reason Critically Ill: 63-year-old male here for BiPAP management in the setting of trach. Past medical history significant for A. fib/a flutter on Coumadin, history of DVT, chronic systolic CHF, tachybrady syndrome s/p pacemaker implantation in 2015, during that time he required tracheostomy for acute respiratory decompensation, uses a speaking valve chronically, morbidly obese with BMI of 60, HTN, HLD, hypothyroidism, history of invasive group B strep infection in July, August and September 2017, gait disorder, has been bedbound for approximately 2 years, lower extremity edema, depression, anemia of chronic disease, KEARA, venous insufficiency, obesity hypoventilation syndrome. Neuro: -[facility] ICU: NEGATIVE -No concerns at present Cardiac: Heart failure secondary to idiopathic cardiomyopathy. Acute on chronic systolic CHF, last echo 2015 showing LVEF of 40%. Most recent echo demonstrate normal EF with moderate to the reduced right-sided RV function likely secondary to OHS and KEARA. Cardiology consulted following recommendations -Metoprolol 50 mg p.o. twice daily -BNP 15,746 -Chest x-ray from this morning demonstrates cardiomegaly, bilateral pleural effusions right greater than left, bilateral pulmonary airspace opacities right greater than left pulmonary vascular congestion Holding diuretics in the setting of hypotension Nonsustained V. tach Frequent PVCs and short runs of A. tach, V. tach runs roughly 2-4 beats per frequent with associated bigeminy that is asymptomatic -As above Respiratory: Shortness of breath morning of 918 patient was doing well given another dose of Lasix 40 mill in the afternoon noted that he was obtunded having respiratory difficulty respiratory therapy was called and suctioned a mucous plug. He was put on BiPAP and an episode of hypotension afterwards concern for auto peeping. Given that his trach collar had to be inflated he was transferred to the ICU. Hold diuretics secondary to hypotension Ordered PCT, CRP, lactate, blood cultures, sputum cultures -CXR concerning for atelectasis versus pulmonary congestion KEARA Status post trach placement in 2016 previous noncompliance with CPAP for KEARA -CPAP at bedtime Obesity hypoventilation syndrome As above GI: Morbidly obese has been bedbound for 2 years secondary to obesity - diet Severe protein calorie malnutrition Albumin 1.5 this is a poor prognostic factor -Trend labs, BMP, Abhinav, albumin RENAL/LYTES: -Replace lytes as needed. ADAM Presents with a creatinine of 8.4 on admission was determined to be secondary to obstruction. Davey bulb was in the urethra and causing causing trauma in the setting of an INR greater than 10 with gross hematuria. Postobstructive ADAM with ATN now resolving. Davey bag still shows dark red urine. Nephrology consulted following the recommendations -Volume status acceptable will need BMP within 1 week of discharge -Furosemide held secondary to hypotension Gross hematuria Secondary to Davey trauma setting INR greater than 10 Right renal mass Unclear if ever biopsied or diagnosed Abnormal CT of the abdomen Patient has a history of extraperitoneal fluid collections unclear if these are microabscesses versus small hematomas. More likely hematoma given new ones noted with supratherapeutic INR -Repeat CT 12/21 decreased size of collections -Follow imaging -If hemoglobin drops would repeat CT abdomen : Urinary tract infection second to chronic indwelling Davey catheter On admission patient presented with a UTI and profound obstruction as described above. Urine was purulent and noted to drain out of the Davey after being replaced by urology approximately 3 L. Culture from 12/20 grew stenotrophomonas. ID felt that it was a colonizer and not to treat. 2 urine cultures grew out Julia. Fluconazole x7 UA on 918 for increasing WBCs ENDO: -No acute concerns HEME: - Stable H&H. At 8 Anemia: Acute blood loss anemia secondary to chronic disease anemia and iron deficiency anemia Baseline hemoglobin 9-10 received 7 units of PRBCs so far this admission ID: Concern for occult infection Procalcitonin blood cultures lactate pending Fluconazole 7 days INTEGUMENTARY: No acute concerns LINES/IV ACCESS: -PIVs intact. DVT PROPHYLAXIS: -SCD's Dispo:ICU, poor prognosis Thank you for allowing us to be part of this patient's care. Please refer to Dr. Godfrey's documentation for any further recommendations. (2) UTI (urinary tract infection) due to urinary indwelling Davey catheter: (3) Symptomatic anemia: (4) ADAM (acute kidney injury): (5) Shortness of breath: (6) Unfavorable prognosis: (7) Severe protein-calorie malnutrition: (8) Renal mass, right: (9) History of group B Streptococcus (GBS) infection: (10) Acute respiratory failure with hypoxia: (11) Acute hypercapnic respiratory failure: (12) Shock: Supervising Physician Co-Signing Physician Notes Dr. Garland was the resident-physician during care of patient. I separately evaluated patient for duggan portions of the history and the exam. I was present during the critical portion of medical decision making, and I discussed the case with the resident. I generally agree with the findings and plan except for any additions/exceptions noted. Impression: 63-year-old male with numerous multiple comorbidities including diastolic and systolic heart failure, morbid obesity, KEARA/OHS, chronic hypercapnic hypoxemic respiratory failure, atrial fibrillation on warfarin with frequent supratherapeutic INR and history of ESBL Klebsiella and Pseudomonas infections. His overall condition is extremely poor. His albumin is 1.5. We were asked to evaluate the patient for worsening hypercapnia. Patient was found to have an acute respiratory acidosis and then improved when he was placed on a ventilator. Due to the fact that the patient cannot be ventilated on the floors he was transferred to the ICU. Continue BiPAP with a cuffed trach with settings of 16/8 with a back-up rate of 14 and FiO2 of 40%. Obtain a blood gas in an hour. Obtain a procalcitonin, blood cultures and a lactic acid. Blood pressures are a little bit low. Prognosis overall is extremely poor. I have personally spent 50 minutes of critical care time in the direct management of this patient. This is a life/limb threatening event. This includes time spent evaluating patient, direct bedside care, chart review, placing orders, interpretation of diagnostic studies, discussion with consultants, patient, and/or family members regarding treatment decisions, as well as other required patient management activities. This time is exclusive of all separately billable procedures, and teaching time and separate from and in addition to any other critical care service time. History of Present Illness Attending Physician: Yoni Hawkins MD History of Present Illness Limited history obtained secondary to BiPAP through trach. Patient transferred down to the ICU for management of BiPAP with a cuffed trach. Manual BP was 102/40 See below for admission H&P: This is a 63-year-old male who was recently admitted from 11/29/2018 through 12/08/2018 and discharged back to [facility]. Patient medical comorbidities include A. fib/a flutter on Coumadin, history of DVT, chronic systolic CHF, tachybrady syndrome s/p pacemaker implantation in 2016, during that time he required tracheostomy for acute respiratory decompensation, uses a speaking v alve chronically, morbidly obese with BMI of 60, HTN, HLD, hypothyroidism, history of invasive group B strep infection in July, August and September 2017, gait disorder, has been bedbound for approximately 2 years, lower extremity edema, depression, anemia of chronic disease, KEARA, venous insufficiency, obesity hypoventilation syndrome. During his most recent hospital stay he was diagnosed with septic shock secondary to pseudomonas pneumonia and UTI (due to ESBL Klebsiella and Proteus) he was placed on Zerbaxa during that hospital stay by infectious disease as multiple pathogens were multidrug resistant. The patient has been at [facility] since his discharge. He has been experiencing gross hematuria which started about 3 days ago. It has been worsening to the point of being bright red with clots in davey. Denies pressure or cramping. Pt notes the davey was changed recently, per chart it was on 12/08/18 prior to discharge. Denies issues with shortness of breath or chest pain. He feels the issues with sob has nearly resolved since finishing the antibiotic course from the previous admission. He reports no changes of worsening swelling in his legs or feet. Oral intake has been poor as he states "nothing tastes any good", and therefore has been several days since he has had a BM. Today the patient had routine labs collected at [facility] which revealed significant abnormalities including INR of 10.4, creatinine of 8.10, BUN of 118, sodium 130, anion gap of 14, CO2 of 20, and hemoglobin of 7.1. CKR shows congestive failure. Nephrology consulted for possible needs for dialysis and fluid overload. INR being reversed with Vit K. Allergies Allergy/AdvReac Type Severity Reaction Status Date / Time cefepime Allergy Intermediate RASH Verified 11/29/18 10:01 latex Allergy Intermediate DERMITITIS Verified 11/29/18 10:01 aztreonam Allergy Mild RASH Verified 11/29/18 10:01 Home Medications Home Medications Medication Instructions Recorded Confirmed Type albuterol sulfate 2.5 mg/3 mL 2.5 mg INHALATION Q4H PRN ml 12/25/18 12/25/18 History (0.083 %) solution for nebulization aspirin 81 mg tablet 81 mg PO DAILY tab 12/25/18 12/25/18 History ferrous sulfate 325 mg (65 mg 325 mg PO BID tab 12/25/18 12/25/18 History iron) tablet furosemide 40 mg tablet 40 mg PO DAILY tab 12/25/18 12/25/18 History levothyroxine 100 mcg tablet 100 mcg PO DAILY tab 12/25/18 12/25/18 History metoprolol tartrate 25 mg tablet 25 mg PO DAILY tab 12/25/18 12/25/18 History pantoprazole 40 mg tablet,delayed 40 mg PO DAILY tab 12/25/18 12/25/18 History release sertraline 100 mg tablet 100 mg PO DAILY tab 12/25/18 12/25/18 History simvastatin 10 mg tablet 10 mg PO DAILY tab 12/25/18 12/25/18 History tamsulosin 0.4 mg capsule 0.4 mg PO DAILY cap 12/25/18 12/25/18 History warfarin 4 mg tablet 4 mg PO DAILY tab 12/25/18 12/25/18 History Patient History Medical History History of group B Streptococcus (GBS) infection Acute respiratory failure with hypoxia Pneumonia (Acute) Acute renal failure (Acute) Heart failure, systolic, due to idiopathic cardiomyopathy (Chronic) "echo 12/01/15 - EF 35-39%, abnormal diastolic dysfunction" KEARA (obstructive sleep apnea) (Chronic) Venous insufficiency (Chronic) Hx MRSA infection (Chronic) "02/2016 in sputum" Obesity hypoventilation syndrome Atrial fibrillation and flutter (Chronic) Pacemaker (Acute) 2011 - SSS Tracheostomy tube present (Acute) 2015 - 2/2 obesity hypoventilation syndrome Ventral hernia (Acute) Anemia Asthma Atrial fibrillation on warfarin BPH (benign prostatic hyperplasia) 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 catheter Bacteremia due to group B Streptococcus 09/2017 - requiring indefinite oral suppressive antibiotic therapy Cardiomyopathy Chronic edema BLLE Chronic indwelling Davey catheter Chronic respiratory failure Chronic venous stasis Congestive heart failure Generalized weakness Gross hematuria History of DVT (deep vein thrombosis) Hyperlipidemia Indwelling Davey catheter present Lymphedema Major depressive disorder Morbid obesity Obesity hypoventilation syndrome On home oxygen therapy Recurrent UTI Sleep apnea Surgical History Status post placement of cardiac pacemaker H/O tracheostomy (Chronic) History of bronchoscopy w/ trach change 01/2018 [facility] History of cholecystectomy History of hernia repair Family History Other No significant family history Social History Preferred Language: Syrian Communication Ability: Effective Abalone Sheller Required: No Beliefs That Will Affect Care: None marital status: Current Living Situation: Residential Current Living Situation Comment: resident at [facility] Other Information That Helps Us Care for You: No Feels Safe at Home: Yes Safety Concerns: Feels Safe At This Time Smoking Status: Never smoker Hx Alcohol Use: No Hx Substance Use: No Physical Exam Physical Exam: General: Morbidly obese gentleman laying in bed with BiPAP attached his trach HEENT: EOMI normocephalic atraumatic Neck: Trachea midline, no normal to visual inspection Cardiac: Regular rate and rhythm I do not appreciate murmurs rubs or gallops normal S1 normal S2, 1+ pedal edema bilaterally no calf tenderness Respiratory: Clear to auscultation bilaterally with slight symmetrical chest expansion I did not appreciate wheezes rales or rhonchi GI: Normal bowel sounds nondistended nontender MSK: Moves all extremities Skin: Warm, dry, intact Neuro:Alert unable to assess orientation Psych: Cooperative Results & Data Vital Signs (Past 12 Hours) Vital Signs Temp Pulse Pulse Resp BP Pulse Ox 12/27/18 15:09 85 18 100 12/27/18 15:04 36.9 C 63 17 72/45 L 100 12/27/18 14:15 85 26 H 84 L 12/27/18 11:40 37.2 C 71 17 99/57 L 91 12/27/18 07:30 84 12/27/18 07:19 36.6 C 89 17 111/53 L 100 12/27/18 04:34 36.3 C L 105 H 16 149/75 H 87 L 12/27/18 04:30 95 H 22 PG Care Time/CCT Total # of Minutes Spent Total Time Spent with Patient: Total time spent is greater than 50% in coordination of care (as documented) at patient's floor/unit and/or counseling patient: Critical Care Time: Yes Total Critical Care Time: 50 Resident Activity Tracking Resident Involvement: Resident Care Provided Care Provided: Adult Hospital Medicine (ICU: poor prognosis )
[2018-12-27 16:14] LABS: iSTAT Allen Test Pass; iSTAT Arterial Blood Gas HCO3 32 meg/L (19-24); iSTAT Arterial Blood Gas pCO2 70 mmHg (35-46); iSTAT Arterial Blood Gas pH 7.27 (7.35-7.45); iSTAT Arterial Blood Gas pO2 50 mmHg (80-95); iSTAT Carbon Dioxide 34 mEq/l (24-31); iSTAT FiO2 70 %; iSTAT Site L Radial
--- NOTE | 2018-12-27 16:37 | Hospitalist Progress Note ---
Date of Service December 27, 2018 Assessment & Plan (1) Shortness of breath: On AM of 12/27, was doing well. Gave another dose of Lasix 40mg IV. In the afternoon, noted that he was obtunded and having respiratory difficulty. - Suctioned by respiratory therapy with decent mucus plug removed. - Put on BiPap -> Hypotension afterward, concerning for auto-PEEP. Transfer to ICU. - Holding additional Lasix at this time. Considering abx though, PNA seemed less likely given CXR findings. (2) Heart failure, systolic, due to idiopathic cardiomyopathy: Acute on chronic systolic CHF. Last echo in 2015 showing LVEF of 40%. Now with normal EF but with moderately reduced right sided RV function likely secondary to OHS and KEARA. - Continue metoprolol and increased to 50 mg po bid of tartrate as per cardiology for frequent PVCs, NSVT - Ordered CXR and BNP on 12/26 for increased shortness of breath. Indicated increased volume. Weight is up 45 kg from admission, but is likely inaccurate. - Gave Lasix IV 40mg x 1 on 12/25 & 12/26 (3) Supratherapeutic INR: INR of 10.4 on admission. - Received Vit K 10 mg IV in the ER, received FFP 2 units, then 2 more doses of Vit K after that on subsequent days. INR was down at 1.3. - Continue to hold warfarin - May need more PO Vit K due to poor nutrition - Does not have evidence of liver disease on labs or imaging - Follow INR in AM - On 12/26, his INR was back up to 2.0 despite being off warfarin. (4) Chronic indwelling Fitch catheter: Since 2015, has been bed-bound since that time. - Fitch was exchanged on 12/20 as above (5) ADAM (acute kidney injury): Presented with Cr of 8.4 on admission, secondary to obstruction--> Fitch bulb was in urethra and causing trauma in setting of INR>10 with gross hematuria. Post-obstructive ADAM with ATN now resolving. - Nephrology followed, but signed off on 12/25. - Appreciate urologic management -> Removed prior Fitch and had large amount of bloody and purulent urine drain out--> 3L total initially. Replaced with Fitch 12/20. Will follow outpatient. - Can check a Cr in 1 week to see where baseline stands. On 12/26, Cr was down to 1.5. (6) UTI (urinary tract infection) due to urinary indwelling Fitch catheter: With UTI on admission secondary to profound obstruction as above. Purulent urine noted to drain out after Fitch replaced by urology. Ur cx from 12/20 grew Stenotrophomonas. ID felt Stenotroph was a colonizer and to not treat. Two urine cultures grew Julia. - Per ID, treating with fluconazole x 7 days. - UA repeated on 12/27 for increasing WBC (7) Gross hematuria: With large amount of hematuria secondary to Fitch trauma in setting of INR>10 as above. (8) Anemia: Acute blood loss anemia in setting of chronic disease anemia and Fe- deficiency anemia. - Blood loss from gross hematuria and also with large hematoma in RUE from straining to pull himself upright/strain. Hematuria now resolved except some scant oozing at meatus. - Baseline Hgb is 9-10 - Received 7 units PRBCs so far this admission. (9) Atrial fibrillation and flutter: History of such and has pacer after aflutter ablation. Currently in NSR, paced rhythm, frequent PVCs and nonsustained VT runs. - Held metoprolol initially due to acute blood loss and ongoing bleeding but BPs now stable - Is on warfarin typically but being held as above. - Appreciate cardio consult (10) KEARA (obstructive sleep apnea): - s/p trach placement 2015 - previous noncompliance with CPAP for KEARA (11) Obesity hypoventilation syndrome: - noted, with trach in place (12) H/O tracheostomy: - spaced in 2015 following intubation and mechanical ventilation for respiratory failure - noncompliance with CPAP for KEARA and the trach was placed as a result - Was changed during last admission on 12/02/18 -trach care as per RT (13) Abnormal CT of the abdomen: With a h/o numerous extraperitoneal fluid collections with some up to 5cm in size, ? if these areas were microabscesses vs small hematomas vs a combination of the two. Consider old hematoma from even previous admission as well as possible. New ones noted with INR being significantly supratherapeutic again. - Repeat CT 12/21 with decreased size of collections - Follow along with imaging - Cystogram here without evidence of bladder perforation - If hgb drops without obvious source, would repeat CT abdomen (14) Renal mass, right: - Hx of right renal mass, unclear if ever diagnosed with cancer. (15) Depression: - Continue sertraline 100 mg daily and consider increasing due to signs of depression like apathy over healthcare needs (16) Hypothyroidism: - Continue levothyroxine 100 mcg daily TSH here is 3.48 (17) Morbid obesity with BMI of 60.0-69.9, adult: - BMI of 56.6 this time, was over 60 during last admission - HH/DM diet (18) Venous insufficiency: - Chronic, wound consult for ulcerations on the R calf - Lymphedema at baseline (19) Lymphedema: - Wound consulted - appreciate (20) Dyslipidemia: - Cont statin therapy (21) Severe protein-calorie malnutrition: Albumin severely low at 1.6 and persists. - Add nephrocaps for improved wound healing - Follow labs, BMP, Phos, albumin (22) Asthma: - Hx of such, continue nebs QID as per home meds, no acute issues but is requiring 40% FiO2 via trach collar (23) Nonsustained ventricular tachycardia: frequent PVCs and short runs of VT VT runs now only 2-4 beats but frequent, also continues with frequent bigem, asymptomatic LVEF now normalized -restarted metoprolol and increased to 50mg bid follow on tele -appreciate Cardio consult -replace K+ (24) Hematoma: RUE, from straining, edema improving now. - Elevate arm for swelling, ice (25) DVT prophylaxis: No chemical ppx ordered with supratherapeutic INR, gross hematuria - SCDs not able to be placed due to lymphedema and chronic wounds Subjective Cannot complete ROS due to trach and communication difficulty. Reports shortness of breath. Physical Exam Constitutional: WD/WN, vitals as above + morbidly obese and + altered mental status Eyes: EOM intact bilaterally; no conjunctival abnormality ENMT: external ear and nose normal, oropharynx normal Neck: trachea midline, no thyromegaly normal visual inspection Respiratory: normal respiratory effort, lungs clear to auscultation no respiratory distress Cardiovascular: RRR, no murmur, no edema Gastrointestinal (Abdomen): Inspection/Auscultation: abdomen normal to inspection; abdomen not distended Musculoskeletal: no cyanosis or clubbing, extremities motor strength 5/5 Skin: no rashes, warm and dry Neurologic: moves all extremities; + not awake Psychiatric: Orientation: cooperative; + not alert and + not oriented to person Results & Data Vital Signs (Past 12 Hours) Vital Signs Temp Pulse Pulse Resp BP Pulse Ox 12/27/18 15:39 60 21 99 12/27/18 15:09 85 18 100 12/27/18 15:04 36.9 C 63 17 72/45 L 100 12/27/18 14:15 85 26 H 84 L 12/27/18 11:40 37.2 C 71 17 99/57 L 91 12/27/18 07:30 84 12/27/18 07:19 36.6 C 89 17 111/53 L 100 12/27/18 04:34 36.3 C L 105 H 16 149/75 H 87 L PG Care Time/CCT Total # of Minutes Spent Total Time Spent with Patient: Total time spent is greater than 50% in coordination of care (as documented) at patient's floor/unit and/or counseling patient: (1) Anemia Anemia type: other cause (2) Depression Depression Type: other depression Qualified Code(s): F32.89 - Other specified depressive episodes (3) Hypothyroidism Hypothyroidism type: acquired Qualified Code(s): E03.9 - Hypothyroidism, unspecified (4) Asthma Asthma severity: unspecified severity Asthma persistence: unspecified Asthma complication type: unspecified Qualified Code(s): J45.909 - Unspecified asthma, uncomplicated
[2018-12-27 18:12] LABS: iSTAT Allen Test Pass; iSTAT Art Bld Gas pCO2 Correct 73 mmHg (35-46); iSTAT Art Bld Gas pH Corrected 7.261 (7.35-7.45); iSTAT Arterial Blood Gas HCO3 33 meg/L (19-24); iSTAT Arterial Blood Gas pCO2 72 mmHg (35-46); iSTAT Arterial Blood Gas pH 7.27 (7.35-7.45); iSTAT Arterial Blood Gas pO2 168 mmHg (80-95); iSTAT Arterial Blood Gas pO2 C 170; iSTAT Carbon Dioxide 35 mEq/l (24-31); iSTAT FiO2 60 %; iSTAT Site L Radial
[2018-12-27 19:08] LABS: BUN Creatinine Ratio 42.3 (10-20); Calcium 8.7 mg/dl (8.5-10.1); Creatinine Clr Calc Pharmacy 97.6 ml/min; Est GFR (African American) 57.9
[2018-12-27 20:50] LABS: Basophils # (auto) 0.02 K/uL (0-0.2); Basophils % (auto) 0.2 %; Eosinophils # (auto) 0.15 K/uL (0-0.5); Eosinophils % (auto) 1.3 %; Hematocrit (blood only) 25.1 % (42-52); Hemoglobin 7.4 g/dL (14.0-18.0); Immature Granulocytes % (auto) 1.7 %; Lymphocytes % (auto) 9.5 %; Mean Corpuscular Hemoglobin 27.4 pg (25-34); Mean Corpuscular Hgb Conc 29.5 g/dL (32-36); Mean Platelet Volume 7.8 fL (7.4-10.4); Monocytes # (auto) 0.99 K/uL (0.11-0.59); Monocytes % (auto) 8.5 %; Neutrophils # (auto) 9.14 K/uL (1.4-6.5); Neutrophils % (auto) 78.8 %; Platelet Count 343 K/uL (130-400); RDW Coefficient of Variation 18.1 % (11.5-14.5); RDW Standard Deviation 59.4 fL (36.4-46.3)
[2018-12-27 20:59] LABS: iSTAT Allen Test Pass; iSTAT Art Bld Gas pCO2 Correct 60 mmHg (35-46); iSTAT Art Bld Gas pH Corrected 7.326 (7.35-7.45); iSTAT Arterial Blood Gas HCO3 31 meg/L (19-24); iSTAT Arterial Blood Gas pCO2 60 mmHg (35-46); iSTAT Arterial Blood Gas pH 7.32 (7.35-7.45); iSTAT Arterial Blood Gas pO2 115 mmHg (80-95); iSTAT Arterial Blood Gas pO2 C 114; iSTAT Carbon Dioxide 33 mEq/l (24-31); iSTAT FiO2 50 %; iSTAT Site L Radial
[2018-12-27 21:18] LABS: Polychromasia 1+
[2018-12-28 04:16] LABS: Hemoglobin 7.4 g/dL (14.0-18.0); Mean Corpuscular Hemoglobin 27.3 pg (25-34); Mean Corpuscular Hgb Conc 29.6 g/dL (32-36); Mean Corpuscular Volume 92.3 fL (80-100); Mean Platelet Volume 7.9 fL (7.4-10.4); Nucleated RBC # (auto) 0.02 K/uL (0-0); Nucleated RBC % (auto) 0.2 %; Platelet Count 349 K/uL (130-400); RDW Coefficient of Variation 18.3 % (11.5-14.5); RDW Standard Deviation 60.2 fL (36.4-46.3); Red Blood Count 2.71 M/uL (4.7-6.1); White Blood Count 11.87 K/uL (4.8-10.8)
[2018-12-28 04:17] LABS: Base Excess VBG 4.9 mEq/L; HCO3 VBG 32 mmol/L; Oxygen Saturation VBG 64.7 %; PCO2 VBG 62 mmHg (38-50); PO2 VBG 32 mmHg; pH VBG 7.33 (7.36-7.41)
[2018-12-28 04:36] LABS: Albumin Level 1.5 gm/dl (3.4-5.0); BUN Creatinine Ratio 42.4 (10-20); Calcium 8.3 mg/dl (8.5-10.1); Creatinine Clr Calc Pharmacy 89.8 ml/min; Est GFR (African American) 52.3; Est GFR (Non-African American) 45.2; Magnesium 1.8 mg/dl (1.8-2.4); Potassium 3.7 mmol/L (3.5-5.1)
[2018-12-28 04:42] LABS: Albumin Globulin Ratio 0.3 (0.9-2); Bilirubin,Total 0.5 mg/dl (0.2-1); Globulin 5.3 gm/dl (2.5-4.0); Phosphorus 3.1 mg/dl (2.5-4.9); Total Protein 6.8 gm/dl (6.4-8.2)
[2018-12-28] MEDS ORDERED: FUROSEMIDE 40 MG in SYRINGE 0 ML IV ONE (05:28)
[2018-12-28] MEDS ORDERED: POTASSIUM ACETATE 10 MEQ in 0.9 % SODIUM CHLORIDE 100 ML IV ONE (05:38)
[2018-12-28] MEDS: LEVOTHYROXINE SODIUM 100 MCG TABLET PO SCH (05:48)
[2018-12-28] MEDS: POTASSIUM CHLORIDE / WTR 10 MEQ/100 ML PLCT IV SCH ×2 (05:55→09:04)
--- NOTE | 2018-12-28 07:04 | XRay Report ---
XR chest 1V portable CLINICAL HISTORY: resp distress/ volume overload COMPARISON STUDY: 11/21/2018 FINDINGS: Cardiomegaly considered unchanged. Right pleural effusion and right basilar consolidation c onsidered similar. Prominent pulmonary vasculature is unaltered. Tracheostomy tube is in good position. Mild atelectatic change medial aspect left base. IMPRESSION: Stable components of mild congestive failure. Unchanged right and to a lesser extent lef t pleural effusions. The above report was generated using voice recognition software. It may contain grammatical, syntax or spelling errors. Electronically signed by: Andrey Link M.D. 12/28/2018 7:02 AM
--- NOTE | 2018-12-28 07:22 | Critical Care Progress Note ---
Date of Service December 28, 2018 Assessment & Plan (1) Admitted to intensive care unit: Reason Critically Ill: 63-year-old male here for BiPAP management in the setting of trach. Past medical history significant for A. fib/a flutter on Coumadin, history of DVT, chronic systolic CHF, tachybrady syndrome s/p pacemaker implantation in 2015, during that time he required tracheostomy for acute respiratory decompensation, uses a speaking valve chronically, morbidly obese with BMI of 60, HTN, HLD, hypothyroidism, history of invasive group B strep infection in July, August and September 2017, gait disorder, has been bedbound for approximately 2 years, lower extremity edema, depression, anemia of chronic disease, KEARA, venous insufficiency, obesity hypoventilation syndrome. Code Status: full code, addressing goals of care Neuro: -[facility] ICU: NEGATIVE -No concerns at present Cardiac: Heart failure secondary to idiopathic cardiomyopathy. Acute on chronic systolic CHF, last echo 2015 showing LVEF of 40%. Most recent echo demonstrate normal EF with moderate to the reduced right-sided RV function likely secondary to OHS and KEARA. Cardiology consulted following recommendations -Metoprolol 50 mg p.o. twice daily -BNP 15,746 -> 26,034 -Chest x-ray from 12/27 demonstrates cardiomegaly, bilateral pleural effusions right greater than left, bilateral pulmonary airspace opacities right greater than left pulmonary vascular congestion Holding diuretics in the setting of hypotension -12/28 stable components of mild congestive failure unchanged from right and to lesser extent left pleural effusion Nonsustained V. tach Frequent PVCs and short runs of A. tach, V. tach runs roughly 2-4 beats per frequent with associated bigeminy that is asymptomatic -As above Respiratory: Shortness of breath morning of 12/27 patient was doing well given another dose of Lasix 40 mg in the afternoon noted that he was obtunded having respiratory difficulty respiratory therapy was called and suctioned a mucous plug. He was put on BiPAP and an episode of hypotension afterwards concern for auto peeping. Given that his trach collar had to be inflated he was transferred to the ICU. Hold diuretics secondary to hypotension see ID -CXR concerning for atelectasis versus pulmonary congestion KEARA Status post trach placement in 2016 previous noncompliance with CPAP for KEARA -CPAP at bedtime Obesity hypoventilation syndrome As above GI: Morbidly obese has been bedbound for 2 years secondary to obesity -NPO diet Severe protein calorie malnutrition Albumin 1.5 this is a poor prognostic factor -Trend labs, BMP, albumin RENAL/LYTES: -Replace lytes as needed. ADAM Presents with a creatinine of 8.4 on admission was determined to be secondary to obstruction. Fitch bulb was in the urethra and causing causing trauma in the setting of an INR greater than 10 with gross hematuria. Postobstructive ADAM with ATN now resolving. Fitch bag still shows dark red urine. Nephrology consulted following the recommendations -Volume status acceptable will need BMP within 1 week of discharge -Furosemide held secondary to hypotension -Cr 1.52 today Gross hematuria Secondary to Fitch trauma setting INR greater than 10 Right renal mass Unclear if ever biopsied or diagnosed Abnormal CT of the abdomen Patient has a history of extraperitoneal fluid collections unclear if these are microabscesses versus small hematomas. More likely hematoma given new ones noted with supratherapeutic INR -Repeat CT 12/21 decreased size of collections -Follow imaging -If hemoglobin drops would repeat CT abdomen : Urinary tract infection second to chronic indwelling Fitch catheter On admission patient presented with a UTI and profound obstruction as described above. Urine was purulent and noted to drain out of the Fitch after being replaced by urology approximately 3 L. Culture from 12/20 grew stenotrophomonas. ID felt that it was a colonizer and not to treat. 2 urine cultures grew out Julia. Fluconazole x7 UA on 12/27 for increasing WBCs ENDO: -No acute concerns HEME: - Stable H&H. At 8 Anemia: Acute blood loss anemia secondary to chronic disease anemia and iron deficiency anemia Baseline hemoglobin 9-10 received 7 units of PRBCs so far this admission ID: Bacteremia There has been a concern that this patient has had an occult infection given his hypotension, and acute decompensation yesterday.Blood urine and sputum cultures were obtained. Blood cultures positive for gram-negative bacilli and gram- positive cocci in chains. Given the patient's history of frequent MDRO infections it will be pertinent to keep this in mind with antibiotic selection -Cultures demonstrate gram-negative bacilli and gram-positive cocci in chains -Patient started on empiric Zosyn and Zerbaxa -Infectious disease consulted appreciate recommendations -Continue broad-spectrum antibiotics pending speciation and sensitivities INTEGUMENTARY: No acute concerns LINES/IV ACCESS: -PIVs intact. DVT PROPHYLAXIS: -SCD's Dispo:ICU Thank you for allowing us to be part of this patient's care. Please refer to Dr. Godfrey's documentation for any further recommendations. (2) Shortness of breath: (3) Bacteremia: (4) Gram negative sepsis: (5) Unfavorable prognosis: (6) Nonsustained ventricular tachycardia: (7) Chronic hypercapnic respiratory failure: Supervising Physician Co-Signing Physician Notes Dr. Garland was the resident-physician during care of patient. I separately evaluated patient for duggan portions of the history and the exam. I was present during the critical portion of medical decision making, and I discussed the case with the resident. I generally agree with the findings and plan except for any additions/exceptions noted. Patient still remains mildly hypercapnic. We repeated blood gas with the cuff of the tracheostomy down which shows a mildly improving respiratory acidosis. He also has a mild hypernatremia which we are correcting with D5W. His blood cultures are now growing gram-positive cocci and gram-negative rods. He needs repeat blood cultures today. We have added vancomycin and Zerbaxa due to his prior history of significant resistant strains. He is also on fluconazole for h is Julia in his urine. Infectious disease is following. I did discuss with him goals of care and at this time he wants to think about changing his CODE STATUS, but is not willing to make any decision. He is still a full code. His was present during the conversation as well. His overall prognosis is very poor. I have personally spent 60 minutes of critical care time in the direct manag ement of this patient. This is a life/limb threatening event. This includes time spent evaluating patient, direct bedside care, chart review, placing orders, interpretation of diagnostic studies, discussion with consultants, patient, and/or family members regarding treatment decisions, as well as other required patient management activities. This time is exclusive of all separately billable procedures, and teaching time and separate from and in addition to any other critical care service time. Subjective Patient laying in bed this morning in no acute distress, alert and oriented. Patient says he is in no pain and feeling well. No acute events overnight we will continue to monitor. Physical Exam Physical Exam: General: Morbidly obese gentleman laying in bed with BiPAP attached his trach HEENT: EOMI normocephalic atraumatic Neck: Trachea midline, no normal to visual inspection Cardiac: Regular rate and rhythm I do not appreciate murmurs rubs or gallops normal S1 normal S2, 1+ pedal edema bilaterally no calf tenderness Respiratory: Clear to auscultation bilaterally with slight symmetrical chest expansion I did not appreciate wheezes rales or rhonchi GI: Normal bowel sounds nondistended nontender MSK: Moves all extremities Skin: Warm, dry, intact Neuro:Alert unable to assess orientation Psych: Cooperative Results & Data Vital Signs (Past 12 Hours) Vital Signs Temp Pulse Pulse Pulse Resp BP Pulse Ox 12/28/18 06:00 75 18 152/80 H 100 12/28/18 05:15 71 15 98 12/28/18 04:00 37 C 75 20 139/64 98 12/28/18 02:00 74 16 104/53 L 98 12/28/18 01:29 75 21 98 12/28/18 00:00 37 C 81 20 114/60 97 12/27/18 23:33 20 12/27/18 22:42 100 H 20 97 12/27/18 22:00 71 20 108/57 L 97 12/27/18 21:14 75 20 100 12/27/18 20:00 36.9 C 89 19 116/54 L 99 Laboratory Results 12/28/18 12/28/18 12/28/18 Range/Units 14:48 12:53 10:17 WBC (4.8-10.8) K/uL RBC (4.7-6.1) M/uL Hgb (14.0-18.0) g/dL Hct (42-52) % MCV (80-100) fL MCH (25-34) pg MCHC (32-36) g/dL RDW Std Deviation (36.4-46.3) fL RDW Coeff of Lexy (11.5-14.5) % Plt Count (130-400) K/uL MPV (7.4-10.4) fL Immature Gran % (Auto) % Neut % (Auto) % Lymph % (Auto) % [place] % (Auto) % Eos % (Auto) % Baso % (Auto) % Immature Gran # (Auto) (0.00-0.02) K/uL Neut # (Auto) (1.4-6.5) K/uL Lymph # (Auto) (1.2-3.4) K/uL [place] # (Auto) (0.11-0.59) K/uL Eos # (Auto) (0-0.5) K/uL Baso # (Auto) (0-0.2) K/uL Absolute Nucleated RBC (0-0) K/uL Nucleated RBC % (auto) % Polychromasia Sample Site R Radial POC pH 7.33 L (7.35-7.45) POC pCO2 57 H (35-46) mmHg POC pO2 93 (80-95) mmHg POC HCO3 30 H (19-24) anabell/L POC Total CO2 32 H (24-31) mEq/l POC Base Excess 4.0 H (-9-1.8) anabell/L ABG pH (Temp Correct) 7.336 L (7.35-7.45) ABG pCO2 (Temp Corrct 57 H (35-46) mmHg POC ABG pO2 at Pt Temp 92 POC ABG O2 Sat 96.0 H (90-95) % Kenton Test Pass VBG pH (7.36-7.41) VBG pCO2 (38-50) mmHg VBG pO2 mmHg VBG HCO3 mmol/L VBG O2 Saturation % VBG Base Excess mEq/L O2 Delivery Device Trach Col POC O2 Rate POC FiO2 50 % IPAP Sodium 149 H (136-145) mmol/L Potassium 5.1 D (3.5-5.1) mmol/L Chloride 114 H (98-107) mmol/L Carbon Dioxide 28 (21-32) mmol/L Anion Gap 7.0 (3-11) BUN 68 H (7-18) mg/dl Creatinine 1.52 H (0.6-1.4) mg/dl Est Cr Clr Drug Dosing 95.1 ml/min Est GFR ( Amer) 56.1 Est GFR (Non-Af Amer) 48.4 BUN/Creatinine Ratio 44.5 H (10-20) Glucose 100 H (70-99) mg/dl POC Glucose 106 H (70-99) Lactate (0.4-2.0) mmol/L Calcium 8.5 (8.5-10.1) mg/dl Phosphorus (2.5-4.9) mg/dl Magnesium (1.8-2.4) mg/dl Total Bilirubin (0.2-1) mg/dl AST (15-37) U/L ALT (12-78) U/L Alkaline Phosphatase (45-117) U/L C-Reactive Protein (0-0.29) mg/dl NT-Pro-B Natriuret Pep (0-900) pg/ml Total Protein (6.4-8.2) gm/dl Albumin (3.4-5.0) gm/dl Globulin (2.5-4.0) gm/dl Albumin/Globulin Ratio (0.9-2) Procalcitonin (0-0.5) ng/ml 12/28/18 12/28/18 12/28/18 Range/Units 03:56 03:56 03:56 WBC (4.8-10.8) K/uL RBC (4.7-6.1) M/uL Hgb (14.0-18.0) g/dL Hct (42-52) % MCV (80-100) fL MCH (25-34) pg MCHC (32-36) g/dL RDW Std Deviation (36.4-46.3) fL RDW Coeff of Lexy (11.5-14.5) % Plt Count (130-400) K/uL MPV (7.4-10.4) fL Immature Gran % (Auto) % Neut % (Auto) % Lymph % (Auto) % [place] % (Auto) % Eos % (Auto) % Baso % (Auto) % Immature Gran # (Auto) (0.00-0.02) K/uL Neut # (Auto) (1.4-6.5) K/uL Lymph # (Auto) (1.2-3.4) K/uL [place] # (Auto) (0.11-0.59) K/uL Eos # (Auto) (0-0.5) K/uL Baso # (Auto) (0-0.2) K/uL Absolute Nucleated RBC (0-0) K/uL Nucleated RBC % (auto) % Polychromasia Sample Site POC pH (7.35-7.45) POC pCO2 (35-46) mmHg POC pO2 (80-95) mmHg POC HCO3 (19-24) anablel/L POC Total CO2 (24-31) mEq/l POC Base Excess (-9-1.8) anabell/L ABG pH (Temp Correct) (7.35-7.45) ABG pCO2 (Temp Corrct (35-46) mmHg POC ABG pO2 at Pt Temp POC ABG O2 Sat (90-95) % Kenton Test VBG pH 7.33 L (7.36-7.41) VBG pCO2 62 H (38-50) mmHg VBG pO2 32 mmHg VBG HCO3 32 mmol/L VBG O2 Saturation 64.7 % VBG Base Excess 4.9 mEq/L O2 Delivery Device POC O2 Rate POC FiO2 % IPAP Sodium 151 H (136-145) mmol/L Potassium 3.7 (3.5-5.1) mmol/L Chloride 114 H (98-107) mmol/L Carbon Dioxide 32 (21-32) mmol/L Anion Gap 5.0 (3-11) BUN 68 H (7-18) mg/dl Creatinine 1.61 H (0.6-1.4) mg/dl Est Cr Clr Drug Dosing 89.8 ml/min Est GFR ( Amer) 52.3 Est GFR (Non-Af Amer) 45.2 BUN/Creatinine Ratio 42.4 H (10-20) Glucose 97 (70-99) mg/dl POC Glucose (70-99) Lactate (0.4-2.0) mmol/L Calcium 8.3 L (8.5-10.1) mg/dl Phosphorus 3.1 (2.5-4.9) mg/dl Magnesium 1.8 (1.8-2.4) mg/dl Total Bilirubin 0.5 (0.2-1) mg/dl AST 10 L (15-37) U/L ALT 10 L (12-78) U/L Alkaline Phosphatase 67 (45-117) U/L C-Reactive Protein (0-0.29) mg/dl NT-Pro-B Natriuret Pep 60287 H (0-900) pg/ml Total Protein 6.8 (6.4-8.2) gm/dl Albumin 1.5 L (3.4-5.0) gm/dl Globulin 5.3 H (2.5-4.0) gm/dl Albumin/Globulin Ratio 0.3 L (0.9-2) Procalcitonin 0.19 (0-0.5) ng/ml 12/28/18 12/27/1819 Range/Units 03:56 22:19 20:41 WBC 11.87 H 11.60 H (4.8-10.8) K/uL RBC 2.71 L 2.70 L (4.7-6.1) M/uL Hgb 7.4 L 7.4 L (14.0-18.0) g/dL Hct 25.0 L 25.1 L (42-52) % MCV 92.3 93.0 (80-100) fL MCH 27.3 27.4 (25-34) pg MCHC 29.6 L 29.5 L (32-36) g/dL RDW Std Deviation 60.2 H 59.4 H (36.4-46.3) fL RDW Coeff of Lexy 18.3 H 18.1 H (11.5-14.5) % Plt Count 349 343 (130-400) K/uL MPV 7.9 7.8 (7.4-10.4) fL Immature Gran % (Auto) 1.7 % Neut % (Auto) 78.8 % Lymph % (Auto) 9.5 % [place] % (Auto) 8.5 % Eos % (Auto) 1.3 % Baso % (Auto) 0.2 % Immature Gran # (Auto) 0.20 H (0.00-0.02) K/uL Neut # (Auto) 9.14 H (1.4-6.5) K/uL Lymph # (Auto) 1.10 L (1.2-3.4) K/uL [place] # (Auto) 0.99 H (0.11-0.59) K/uL Eos # (Auto) 0.15 (0-0.5) K/uL Baso # (Auto) 0.02 (0-0.2) K/uL Absolute Nucleated RBC 0.02 H (0-0) K/uL Nucleated RBC % (auto) 0.2 % Polychromasia 1+ Sample Site POC pH (7.35-7.45) POC pCO2 (35-46) mmHg POC pO2 (80-95) mmHg POC HCO3 (19-24) anablel/L POC Total CO2 (24-31) mEq/l POC Base Excess (-9-1.8) anabell/L ABG pH (Temp Correct) (7.35-7.45) ABG pCO2 (Temp Corrct (35-46) mmHg POC ABG pO2 at Pt Temp POC ABG O2 Sat (90-95) % Kenton Test VBG pH (7.36-7.41) VBG pCO2 (38-50) mmHg VBG pO2 mmHg VBG HCO3 mmol/L VBG O2 Saturation % VBG Base Excess mEq/L O2 Delivery Device POC O2 Rate POC FiO2 % IPAP Sodium (136-145) mmol/L Potassium (3.5-5.1) mmol/L Chloride (98-107) mmol/L Carbon Dioxide (21-32) mmol/L Anion Gap (3-11) BUN (7-18) mg/dl Creatinine (0.6-1.4) mg/dl Est Cr Clr Drug Dosing ml/min Est GFR ( Amer) Est GFR (Non-Af Amer) BUN/Creatinine Ratio (10-20) Glucose (70-99) mg/dl POC Glucose 107 H (70-99) Lactate (0.4-2.0) mmol/L Calcium (8.5-10.1) mg/dl Phosphorus (2.5-4.9) mg/dl Magnesium (1.8-2.4) mg/dl Total Bilirubin (0.2-1) mg/dl AST (15-37) U/L ALT (12-78) U/L Alkaline Phosphatase (45-117) U/L C-Reactive Protein (0-0.29) mg/dl NT-Pro-B Natriuret Pep (0-900) pg/ml Total Protein (6.4-8.2) gm/dl Albumin (3.4-5.0) gm/dl Globulin (2.5-4.0) gm/dl Albumin/Globulin Ratio (0.9-2) Procalcitonin (0-0.5) ng/ml 12/27/18 12/27/18 12/27/18 Range/Units 20:41 20:40 18:25 WBC (4.8-10.8) K/uL RBC (4.7-6.1) M/uL Hgb (14.0-18.0) g/dL Hct (42-52) % MCV (80-100) fL MCH (25-34) pg MCHC (32-36) g/dL RDW Std Deviation (36.4-46.3) fL RDW Coeff of Lexy (11.5-14.5) % Plt Count (130-400) K/uL MPV (7.4-10.4) fL Immature Gran % (Auto) % Neut % (Auto) % Lymph % (Auto) % [place] % (Auto) % Eos % (Auto) % Baso % (Auto) % Immature Gran # (Auto) (0.00-0.02) K/uL Neut # (Auto) (1.4-6.5) K/uL Lymph # (Auto) (1.2-3.4) K/uL [place] # (Auto) (0.11-0.59) K/uL Eos # (Auto) (0-0.5) K/uL Baso # (Auto) (0-0.2) K/uL Absolute Nucleated RBC (0-0) K/uL Nucleated RBC % (auto) % Polychromasia Sample Site L Radial POC pH 7.32 L (7.35-7.45) POC pCO2 60 H (35-46) mmHg POC pO2 115 H (80-95) mmHg POC HCO3 31 H (19-24) anabell/L POC Total CO2 33 H (24-31) mEq/l POC Base Excess 5.0 H (-9-1.8) anabell/L ABG pH (Temp Correct) 7.326 L (7.35-7.45) ABG pCO2 (Temp Corrct 60 H (35-46) mmHg POC ABG pO2 at Pt Temp 114 POC ABG O2 Sat 98.0 H (90-95) % Kenton Test Pass VBG pH (7.36-7.41) VBG pCO2 (38-50) mmHg VBG pO2 mmHg VBG HCO3 mmol/L VBG O2 Saturation % VBG Base Excess mEq/L O2 Delivery Device BIPAP POC O2 Rate 21 POC FiO2 50 % IPAP 20 Sodium (136-145) mmol/L Potassium (3.5-5.1) mmol/L Chloride (98-107) mmol/L Carbon Dioxide (21-32) mmol/L Anion Gap (3-11) BUN (7-18) mg/dl Creatinine (0.6-1.4) mg/dl Est Cr Clr Drug Dosing ml/min Est GFR ( Amer) Est GFR (Non-Af Amer) BUN/Creatinine Ratio (10-20) Glucose (70-99) mg/dl POC Glucose (70-99) Lactate 0.7 (0.4-2.0) mmol/L Calcium (8.5-10.1) mg/dl Phosphorus (2.5-4.9) mg/dl Magnesium (1.8-2.4) mg/dl Total Bilirubin (0.2-1) mg/dl AST (15-37) U/L ALT (12-78) U/L Alkaline Phosphatase (45-117) U/L C-Reactive Protein (0-0.29) mg/dl NT-Pro-B Natriuret Pep (0-900) pg/ml Total Protein (6.4-8.2) gm/dl Albumin (3.4-5.0) gm/dl Globulin (2.5-4.0) gm/dl Albumin/Globulin Ratio (0.9-2) Procalcitonin 0.19 (0-0.5) ng/ml 12/27/18 12/27/18 Range/Units 18:25 17:59 WBC (4.8-10.8) K/uL RBC (4.7-6.1) M/uL Hgb (14.0-18.0) g/dL Hct (42-52) % MCV (80-100) fL MCH (25-34) pg MCHC (32-36) g/dL RDW Std Deviation (36.4-46.3) fL RDW Coeff of Lexy (11.5-14.5) % Plt Count (130-400) K/uL MPV (7.4-10.4) fL Immature Gran % (Auto) % Neut % (Auto) % Lymph % (Auto) % [place] % (Auto) % Eos % (Auto) % Baso % (Auto) % Immature Gran # (Auto) (0.00-0.02) K/uL Neut # (Auto) (1.4-6.5) K/uL Lymph # (Auto) (1.2-3.4) K/uL [place] # (Auto) (0.11-0.59) K/uL Eos # (Auto) (0-0.5) K/uL Baso # (Auto) (0-0.2) K/uL Absolute Nucleated RBC (0-0) K/uL Nucleated RBC % (auto) % Polychromasia Sample Site L Radial POC pH 7.27 L (7.35-7.45) POC pCO2 72 H (35-46) mmHg POC pO2 168 H (80-95) mmHg POC HCO3 33 H (19-24) anabell/L POC Total CO2 35 H (24-31) mEq/l POC Base Excess 6.0 H (-9-1.8) anabell/L ABG pH (Temp Correct) 7.261 L (7.35-7.45) ABG pCO2 (Temp Corrct 73 H (35-46) mmHg POC ABG pO2 at Pt Temp 170 POC ABG O2 Sat 99.0 H (90-95) % Kenton Test Pass VBG pH (7.36-7.41) VBG pCO2 (38-50) mmHg VBG pO2 mmHg VBG HCO3 mmol/L VBG O2 Saturation % VBG Base Excess mEq/L O2 Delivery Device BIPAP POC O2 Rate 14 POC FiO2 60 % IPAP 16 Sodium 148 H (136-145) mmol/L Potassium 4.0 (3.5-5.1) mmol/L Chloride 113 H (98-107) mmol/L Carbon Dioxide 33 H (21-32) mmol/L Anion Gap 2.0 L (3-11) BUN 63 H (7-18) mg/dl Creatinine 1.48 H (0.6-1.4) mg/dl Est Cr Clr Drug Dosing 97.6 ml/min Est GFR ( Amer) 57.9 Est GFR (Non-Af Amer) 50.0 BUN/Creatinine Ratio 42.3 H (10-20) Glucose 108 H (70-99) mg/dl POC Glucose (70-99) Lactate (0.4-2.0) mmol/L Calcium 8.7 (8.5-10.1) mg/dl Phosphorus (2.5-4.9) mg/dl Magnesium (1.8-2.4) mg/dl Total Bilirubin (0.2-1) mg/dl AST (15-37) U/L ALT (12-78) U/L Alkaline Phosphatase (45-117) U/L C-Reactive Protein 16.00 H (0-0.29) mg/dl NT-Pro-B Natriuret Pep (0-900) pg/ml Total Protein (6.4-8.2) gm/dl Albumin (3.4-5.0) gm/dl Globulin (2.5-4.0) gm/dl Albumin/Globulin Ratio (0.9-2) Procalcitonin (0-0.5) ng/ml Medications Administered Current Inpatient Medications Acetaminophen (Tylenol) 650 mg PO Q4H PRN PRN Reason: Moderate Pain Stop: 01/19/19 14:27 Last Admin: 12/22/18 21:27 Dose: 650 mg Documented by: Albuterol (Duoneb) 3 ml NEB Q4 PRN PRN Reason: Shortness Of Breath Or Wheezing Stop: 01/24/19 15:59 Last Admin: 12/27/18 14:15 Dose: 3 ml Documented by: Calamine/Phenol (Calmoseptine) 1 appln EXT Q6 PRN PRN Reason: Wound Care Stop: 01/19/19 14:27 Last Admin: 12/21/18 05:21 Dose: 1 appln Documented by: Chlorhexidine Gluconate (Peridex) 15 ml MT BID REPLACED BY [facility] Stop: 01/19/19 20:59 Last Admin: 12/28/18 08:48 Dose: 15 ml Documented by: Ferrous Sulfate (Feosol) 325 mg PO QAM REPLACED BY [facility] Stop: 01/20/19 08:59 Last Admin: 12/28/18 08:47 Dose: Not Given Documented by: Fluconazole (Diflucan) 100 mg PO QAM REPLACED BY [facility] Stop: 01/04/19 10:29 Last Admin: 12/28/18 08:47 Dose: Not Given Documented by: Guaifenesin (Mucinex) 1,200 mg PO BID REPLACED BY [facility] Stop: 01/19/19 20:59 Last Admin: 12/28/18 08:47 Dose: Not Given Documented by: Dextrose (D5w) 1,000 mls @ 80 mls/hr IV .[id number] REPLACED BY [facility] Stop: 01/27/19 08:44 Last Admin: 12/28/18 08:49 Dose: 80 mls/hr Documented by: Ceftolozane/Tazobactam 3,000 (mg/ Dextrose) 122.8 mls @ 122.8 mls/hr IV Q8H REPLACED BY [facility] Stop: 01/11/19 21:59 Vancomycin HCl 2,500 mg/ (Sodium Chloride) 550 mls @ 200 mls/hr IV Q12H REPLACED BY [facility] Stop: 01/12/19 00:00 Levothyroxine Sodium (Synthroid) 100 mcg PO DAILYBB REPLACED BY [facility] Stop: 01/20/19 06:29 Last Admin: 12/28/18 05:48 Dose: Not Given Documented by: Magnesium Hydroxide (Milk Of Magnesia) 30 ml PO HS PRN PRN Reason: Constipation Stop: 01/19/19 14:27 Miscellaneous Information (Consult) 1 ea N/A UD PRN PRN Reason: Consult Stop: 01/27/19 11:38 Nystatin (Mycostatin) 1 appln EXT DAILY REPLACED BY [facility] Stop: 01/20/19 08:59 Last Admin: 12/28/18 08:48 Dose: 1 appln Documented by: Ondansetron HCl (Zofran) 4 mg IV Q4H PRN PRN Reason: Nausea And Vomiting Stop: 01/19/19 14:27 Pantoprazole Sodium (Protonix) 40 mg PO QAM REPLACED BY [facility] Stop: 01/20/19 08:59 Last Admin: 12/28/18 08:47 Dose: Not Given Documented by: Sertraline HCl (Zoloft) 100 mg PO QAM REPLACED BY [facility] Stop: 01/20/19 08:59 Last Admin: 12/28/18 08:47 Dose: Not Given Documented by: Simvastatin (Zocor) 10 mg PO QAM REPLACED BY [facility] Stop: 01/20/19 08:59 Last Admin: 12/28/18 08:47 Dose: Not Given Documented by: Vitamin B Complex/Folic Acid (Nephrocaps) [facility] [place] [place] Stop: 01/21/19 08:59 Last Admin: 12/28/18 08:47 Dose: Not Given Documented by: PG Care Time/CCT Total # of Minutes Spent Total Time Spent with Patient: Total time spent is greater than 50% in coordination of care (as documented) at patient's floor/unit and/or counseling patient: Critical Care Time: Yes Total Critical Care Time: 60
[2018-12-28] MEDS ORDERED: DEXTROSE 5% 500 ML IV SCH (08:15)
[2018-12-28] MEDS: FERROUS SULFATE 325 MG TAB PO SCH (08:47)
[2018-12-28] MEDS: SERTRALINE HCL 50 MG TABLET PO SCH (08:47)
[2018-12-28] MEDS: SIMVASTATIN 10 MG TAB PO SCH (08:47)
[2018-12-28] MEDS: NEPHROCAPS PO SCH (08:47)
[2018-12-28] MEDS: guaiFENesin 600 MG TABCR PO SCH ×2 (08:47→20:58)
[2018-12-28] MEDS: PANTOprazole 40 MG TAB PO SCH (08:47)
[2018-12-28] MEDS: FLUCONAZOLE 100 MG TAB PO SCH (08:47)
[2018-12-28] MEDS: CHLORHEXIDINE GLUCONATE 0.12% 480 ML MT SCH ×2 (08:48→20:58)
[2018-12-28] MEDS: NYSTATIN POWDER 15GM BTL EXT SCH (08:48)
[2018-12-28] MEDS: DEXTROSE 5% 1,000 ML IV SCH ×2 (08:49→21:26)
[2018-12-28 10:43] LABS: BUN Creatinine Ratio 44.5 (10-20); Calcium 8.5 mg/dl (8.5-10.1); Creatinine Clr Calc Pharmacy 95.1 ml/min; Est GFR (African American) 56.1; Est GFR (Non-African American) 48.4; Potassium 5.1 mmol/L (3.5-5.1)
[2018-12-28] MEDS ORDERED: PIPERACILL/TAZOBAC CONSULT ACTIVE PRN (11:39)
[2018-12-28] MEDS ORDERED: VANCOMYCIN CONSULT ACTIVE PRN (11:39)
[2018-12-28] MEDS ORDERED: VANCOMYCIN HCL 2,750 MG in SODIUM CHLORIDE 0.9% 500 ML IV ONE (12:00)
[2018-12-28] MEDS ORDERED: PIPERACILLIN/TAZOBACTAM 4.5 GM in DEXTROSE 5% 100 ML IV ONE (12:00)
[2018-12-28] MEDS ORDERED: CEFTOLOZANE/TAZOBACTAM 3,000 MG in DEXTROSE 5% 100 ML IV ONE (12:45)
--- NOTE | 2018-12-28 14:18 | Hospitalist Progress Note ---
Date of Service December 28, 2018 Assessment & Plan (1) Bacteremia: Blood culture from 12/27 when he was in distress is growing Gram(+) cocci in chains and Gram(-) bacilli. - On vancomycin for Gram(+) - Will considering adding cefoxitin and Bactrim on the suspicion that the Gram(- ) is the Stenotrophomonas, Klebsiella, or Proteus from his urine cultures - Repeat blood cultures tomorrow and follow current ones (2) Shortness of breath: On AM of 12/27, was doing well. Gave another dose of Lasix 40mg IV. In the afternoon, noted that he was obtunded and having respiratory difficulty. Acute hypoxic respiratory failure. - Suctioned by respiratory therapy with decent mucus plug removed. - Put on BiPap -> Hypotension afterward, concerning for auto-PEEP. Transferred to ICU. - Now after BiPap, is doing much better. BP is stable. (3) Heart failure, systolic, due to idiopathic cardiomyopathy: Acute on chronic systolic CHF. Last echo in 2015 showing LVEF of 40%. Now with normal EF but with moderately reduced right sided RV function likely secondary to OHS and KEARA. - Continue metoprolol and increased to 50 mg po bid of tartrate as per cardiology for frequent PVCs, NSVT - Ordered CXR and BNP on 12/26 for increased shortness of breath. Indicated increased volume. Weight is up 45 kg from admission, but is likely inaccurate. - Giving Lasix IV 40mg as able (4) Supratherapeutic INR: INR of 10.4 on admission. - Received Vit K 10 mg IV in the ER, received FFP 2 units, then 2 more doses of Vit K after that on subsequent days. INR was down at 1.3. - Continue to hold warfarin - May need more PO Vit K due to poor nutrition - Does not have evidence of liver disease on labs or imaging - Follow INR in AM - On 12/26, his INR was back up to 2.0 despite being off warfarin. (5) Chronic indwelling Fitch catheter: Since 2015, has been bed-bound since that time. - Fitch was exchanged on 12/20 as above (6) ADAM (acute kidney injury): Presented with Cr of 8.4 on admission, secondary to obstruction--> Fitch bulb was in urethra and causing trauma in setting of INR>10 with gross hematuria. Post-obstructive ADAM with ATN now resolving. - Nephrology followed, but signed off on 12/25. - Appreciate urologic management -> Removed prior Fitch and had large amount of bloody and purulent urine drain out--> 3L total initially. Replaced with Fitch 12/20. Will follow outpatient. - Can check a Cr in 1 week to see where baseline stands. On 12/26, Cr was down to 1.5. (7) UTI (urinary tract infection) due to urinary indwelling Fitch catheter: With UTI on admission secondary to profound obstruction as above. Purulent urine noted to drain out after Fitch replaced by urology. Ur cx from 12/20 grew Stenotrophomonas. ID felt Stenotroph was a colonizer and to not treat. Two urine cultures grew Julia. - Per ID, treating with fluconazole x 7 days. - UA repeated on 12/27 for increasing WBC (8) Gross hematuria: With large amount of hematuria secondary to Fitch trauma in setting of INR>10 as above. (9) Anemia: Acute blood loss anemia in setting of chronic disease anemia and Fe- deficiency anemia. - Blood loss from gross hematuria and also with large hematoma in RUE from straining to pull himself upright/strain. Hematuria now resolved except some scant oozing at meatus. - Baseline Hgb is 9-10 - Received 7 units PRBCs so far this admission. (10) Atrial fibrillation and flutter: History of such and has pacer after aflutter ablation. Currently in NSR, paced rhythm, frequent PVCs and nonsustained VT runs. - Held metoprolol initially due to acute blood loss and ongoing bleeding but BPs now stable - Is on warfarin typically but being held as above. - Appreciate cardio consult (11) KEARA (obstructive sleep apnea): - s/p trach placement 2016 - previous noncompliance with CPAP for KEARA (12) Obesity hypoventilation syndrome: - noted, with trach in place (13) H/O tracheostomy: - spaced in 2016 following intubation and mechanical ventilation for respiratory failure - noncompliance with CPAP for KEARA and the trach was placed as a result - Was changed during last admission on 12/02/18 -trach care as per RT (14) Abnormal CT of the abdomen: With a h/o numerous extraperitoneal fluid collections with some up to 5cm in size, ? if these areas were microabscesses vs small hematomas vs a combination of the two. Consider old hematoma from even previous admission as well as possible. New ones noted with INR being significantly supratherapeutic again. - Repeat CT 12/21 with decreased size of collections - Follow along with imaging - Cystogram here without evidence of bladder perforation - If hgb drops without obvious source, would repeat CT abdomen (15) Renal mass, right: - Hx of right renal mass, unclear if ever diagnosed with cancer. (16) Depression: - Continue sertraline 100 mg daily and consider increasing due to signs of depression like apathy over healthcare needs (17) Hypothyroidism: - Continue levothyroxine 100 mcg daily TSH here is 3.48 (18) Morbid obesity with BMI of 60.0-69.9, adult: - BMI of 56.6 this time, was over 60 during last admission - HH/DM diet (19) Venous insufficiency: - Chronic, wound consult for ulcerations on the R calf - Lymphedema at baseline (20) Lymphedema: - Wound consulted - appreciate (21) Dyslipidemia: - Cont statin therapy (22) Severe protein-calorie malnutrition: Albumin severely low at 1.6 and persists. - Add nephrocaps for improved wound healing - Follow labs, BMP, Phos, albumin (23) Asthma: - Hx of such, continue nebs QID as per home meds, no acute issues but is requiring 40% FiO2 via trach collar (24) Nonsustained ventricular tachycardia: frequent PVCs and short runs of VT VT runs now only 2-4 beats but frequent, also continues with frequent bigem, asymptomatic LVEF now normalized -restarted metoprolol and increased to 50mg bid follow on tele -appreciate Cardio consult -replace K+ (25) Hematoma: RUE, from straining, edema improving now. - Elevate arm for swelling, ice (26) DVT prophylaxis: No chemical ppx ordered with supratherapeutic INR, gross hematuria - SCDs not able to be placed due to lymphedema and chronic wounds Subjective Feeling much better today. No shortness of breath. Is feeling hungry and would like something to eat and/or drink. Review of Systems Review of Systems: All systems reviewed & are unremarkable except as noted in HPI & below Physical Exam Constitutional: WD/WN, vitals as above + morbidly obese and + altered mental status Eyes: EOM intact bilaterally; no conjunctival abnormality ENMT: external ear and nose normal, oropharynx normal Neck: trachea midline, no thyromegaly normal visual inspection Respiratory: normal respiratory effort, lungs clear to auscultation no respiratory distress Cardiovascular: RRR, no murmur, no edema Gastrointestinal (Abdomen): Inspection/Auscultation: abdomen normal to inspection; abdomen not distended Musculoskeletal: no cyanosis or clubbing, extremities motor strength 5/5 Skin: no rashes, warm and dry Neurologic: moves all extremities; + not awake Psychiatric: Orientation: cooperative; + not alert and + not oriented to person Results & Data Vital Signs (Past 12 Hours) Vital Signs Temp Pulse Pulse Resp BP BP Pulse Ox 12/28/18 12:41 77 20 98 12/28/18 11:38 71 18 100 12/28/18 09:00 78 19 125/63 100 12/28/18 08:15 67 18 94 12/28/18 08:00 36.7 C 70 13 141/68 H 99 12/28/18 07:00 72 20 161/86 H 99 12/28/18 06:00 75 18 152/80 H 100 12/28/18 05:15 71 15 98 12/28/18 04:00 37 C 75 20 139/64 98 PG Care Time/CCT Total # of Minutes Spent Total Time Spent with Patient: Total time spent is greater than 50% in coordination of care (as documented) at patient's floor/unit and/or counseling patient: (1) Anemia Anemia type: other cause (2) Depression Depression Type: other depression Qualified Code(s): F32.89 - Other specified depressive episodes (3) Hypothyroidism Hypothyroidism type: acquired Qualified Code(s): E03.9 - Hypothyroidism, unspecified (4) Asthma Asthma complication type: unspecified Asthma persistence: unspecified Asthma severity: unspecified severity Qualified Code(s): J45.909 - Unspecified asthma, uncomplicated
[2018-12-28 15:02] LABS: iSTAT Allen Test Pass; iSTAT Art Bld Gas pCO2 Correct 57 mmHg (35-46); iSTAT Art Bld Gas pH Corrected 7.336 (7.35-7.45); iSTAT Arterial Blood Gas HCO3 30 meg/L (19-24); iSTAT Arterial Blood Gas pCO2 57 mmHg (35-46); iSTAT Arterial Blood Gas pH 7.33 (7.35-7.45); iSTAT Arterial Blood Gas pO2 93 mmHg (80-95); iSTAT Arterial Blood Gas pO2 C 92; iSTAT Carbon Dioxide 32 mEq/l (24-31); iSTAT FiO2 50 %; iSTAT Site R Radial
--- NOTE | 2018-12-28 15:28 | Pharmacy Report ---
Pharmacy Abx Dose Short Note - Date of Service December 28, 2018 - Assessment & Plan Assessment * 63 year old M receiving ZERBAXA + VANCOMYCIN IV + FLUCONAZOLE PO for treatment of bacteremia / possible pulm infxn / possible UTI * One of two BLCX's growing GPC in chains as well as GNR * Patient has a h/o MDR pseudomonas (sputum) as well as ESBL klebsiella (urine) + MDR proteus mirabilis (urine) * Urine cx also growing stenotrophamonas maltophila and kaity albicans this admission * BP stable Plan Vancomycin * Treatment will be challenging given extremes of body weight (BMI 71) and lack of representation of this population in kinetic studies * Loading dose: 2750mg x 1 (~12mg/kg) * Maint dose: 2500mg (~11mg/kg) IV Q 12 hrs * Will check trough level prior to second maint dose given dosing uncertainties * Goal trough level for bacteremia : 15 to 20 mcg/mL * P'kinetic estimates: Vd 0.5L/kg (due to BMI > 40), half-life ~9 hrs * Might consider use of daptomycin as alternative agent if MRSA nasal swab negative as this is a weight based medication Zerbaxa * eCrCl > 50, given body habitus and bacteremia would rec maximum dose: 3gm IV Q 8 hrs Pharmacy will continue to follow and will adjust dose/frequency as necessary. Thank you.
--- NOTE | 2018-12-28 17:06 | Infectious Disease Progress Nt ---
Date of Service December 28, 2018 Assessment & Plan (1) Gram negative sepsis: To now with gram-negative/gram-positive bacteremia in the setting of indwelling Fitch catheter with recurrent urinary tract infections, most recently with fluconazole. Patient to continue on current broad-spectrum antibiotics pending final identification and sensitivity results. Will follow. (2) UTI (urinary tract infection) due to urinary indwelling Fitch catheter: Subjective Patient seen in follow-up for fungal urinary tract infection. Developed acute compensation, transferred to ICU. Blood cultures now reported positive for gram-negative bacilli and gram-positive cocci. Pt. is actually feeling better today. Chest x-ray shows evidence of congestive failure, no worsening infiltrate. Review of Systems Review of Systems: Unobtainable due to cognitive status Physical Exam Constitutional: WD/WN, vitals as above comfortable; no acute distress Eyes: PERRL, conjunctivae normal, anicteric sclerae ENMT: external ear and nose normal, oropharynx normal Neck: trachea midline, no thyromegaly neck nontender Respiratory: normal respiratory effort, lungs clear to auscultation normal percussion; does not use accessory muscles Cardiovascular: Rate/Rhythm: regular rate and regular rhythm Heart Sounds: normal S1 and normal S2; no gallop, no murmur and no cardiac rub Vessels: normal peripheral pulses; no JVD Gastrointestinal (Abdomen): normal bowel sounds, soft, nontender, no hepatosplenomegaly Musculoskeletal: no cyanosis or clubbing, extremities motor strength 5/5 Spine: thoracic spine normal to inspection and lumbar spine normal to inspection; no cervical spinal tenderness Skin: no rashes, warm and dry normal turgor; no lesions Neurologic: moves all extremities, awake and + confused Psychiatric: Orientation: alert; + not oriented x 3 Lymphatic: no cervical or axillary lymphadenopathy no inguinal lymphadenopathy Results & Data Vital Signs (Past 12 Hours) Vital Signs Temp Pulse Pulse Resp BP BP Pulse Ox 12/28/18 12:41 77 20 98 12/28/18 11:38 71 18 100 12/28/18 09:00 78 19 125/63 100 12/28/18 08:15 67 18 94 12/28/18 08:00 36.7 C 70 13 141/68 H 99 12/28/18 07:00 72 20 161/86 H 99 12/28/18 06:00 75 18 152/80 H 100 12/28/18 05:15 71 15 98 Laboratory Results Short CBC 12/27/18 12/28/18 Range/Units 20:41 03:56 WBC 11.60 H 11.87 H (4.8-10.8) K/uL Hgb 7.4 L 7.4 L (14.0-18.0) g/dL Hct 25.1 L 25.0 L (42-52) % Plt Count 343 349 (130-400) K/uL BMP 12/27/18 12/28/18 12/28/18 18:25 03:56 10:17 Sodium 148 H 151 H 149 H Potassium 4.0 3.7 5.1 D Chloride 113 H 114 H 114 H Carbon Dioxide 33 H 32 28 BUN 63 H 68 H 68 H Creatinine 1.48 H 1.61 H 1.52 H Glucose 108 H 97 100 H Calcium 8.7 8.3 L 8.5 Liver Function 12/28/18 Range/Units 03:56 Total Bilirubin 0.5 (0.2-1) mg/dl AST 10 L (15-37) U/L ALT 10 L (12-78) U/L Alkaline Phosphatase 67 (45-117) U/L Albumin 1.5 L (3.4-5.0) gm/dl Diagnostic Findings Microbiology 12/26/18 11:00 Sputum,Trach Gram Stain - Final 12/26/18 11:00 Sputum,Trach Sputum Culture - Final Heavy normal clarisse. 12/27/18 20:41 Blood Aerobic Blood Culture - Preliminary Gram negative bacilli Gram positive cocci in chains 12/27/18 11:35 Urine,Indwelling Cath Urine Culture - Preliminary Julia albicans 12/23/18 Unknown Urine,Indwelling Cath Urine Culture - Final Julia albicans 12/20/18 21:30 Urine,Straight Cath Urine Culture - Final Julia albicans 12/20/18 16:30 Urine,Clean Catch Urine Culture - Final Stenotrophomonas maltophilia Interpreting Phy: Andrey Link MD Admit Phy: Margaret Garland D.O. Ordering Phy: Mario Cornelius CRNP cc: ~ XR chest 1V portable CLINICAL HISTORY: resp distress/ volume overload COMPARISON STUDY: 11/21/2018 FINDINGS: Cardiomegaly considered unchanged. Right pleural effusion and right basilar consolidation considered similar. Prominent pulmonary vasculature is unaltered. Tracheostomy tube is in good position. Mild atelectatic change medial aspect left base. IMPRESSION: Stable components of mild congestive failure. Unchanged right and to a lesser extent left pleural effusions. The above report was generated using voice recognition software. It may contain grammatical, syntax or spelling errors. PG Care Time/CCT Total # of Minutes Spent Total Time Spent with Patient: Total time spent is greater than 50% in coordination of care (as documented) at patient's floor/unit and/or counseling patient:
[2018-12-28] MEDS ORDERED: PIPERACILLIN/TAZOBACTAM 4.5 GM in DEXTROSE 5% 100 ML IV SCH (18:00)
[2018-12-28] MEDS ORDERED: SULFAMETHOXAZOLE/TRIMETHOPRIM DS 800/160MG TAB PO ONE (21:10)
[2018-12-28] MEDS: CEFTOLOZANE/TAZOBACTAM 3,000 MG in DEXTROSE 5% 100 ML IV SCH (21:27)
[2018-12-28 22:30] LABS: iSTAT Allen Test Pass; iSTAT Art Bld Gas pCO2 Correct 68 mmHg (35-46); iSTAT Art Bld Gas pH Corrected 7.279 (7.35-7.45); iSTAT Arterial Blood Gas HCO3 32 meg/L (19-24); iSTAT Arterial Blood Gas pCO2 69 mmHg (35-46); iSTAT Arterial Blood Gas pH 7.27 (7.35-7.45); iSTAT Arterial Blood Gas pO2 70 mmHg (80-95); iSTAT Arterial Blood Gas pO2 C 67; iSTAT Carbon Dioxide 34 mEq/l (24-31); iSTAT FiO2 50 %; iSTAT Site R Radial
[2018-12-29 05:36] LABS: Basophils # (auto) 0.04 K/uL (0-0.2); Basophils % (auto) 0.5 %; Eosinophils % (auto) 3.8 %; Hematocrit (blood only) 23.6 % (42-52); Hemoglobin 7.1 g/dL (14.0-18.0); Immature Granulocytes % (auto) 1.3 %; Lymphocytes # (auto) 0.83 K/uL (1.2-3.4); Lymphocytes % (auto) 10.4 %; Mean Corpuscular Hemoglobin 27.6 pg (25-34); Mean Corpuscular Hgb Conc 30.1 g/dL (32-36); Mean Corpuscular Volume 91.8 fL (80-100); Mean Platelet Volume 7.8 fL (7.4-10.4); Monocytes # (auto) 0.82 K/uL (0.11-0.59); Monocytes % (auto) 10.3 %; Neutrophils # (auto) 5.89 K/uL (1.4-6.5); Neutrophils % (auto) 73.7 %; Nucleated RBC # (auto) 0.02 K/uL (0-0); Nucleated RBC % (auto) 0.3 %; Platelet Count 322 K/uL (130-400); RDW Coefficient of Variation 18.5 % (11.5-14.5); RDW Standard Deviation 61.5 fL (36.4-46.3); Red Blood Count 2.57 M/uL (4.7-6.1); White Blood Count 7.98 K/uL (4.8-10.8)
[2018-12-29 05:37] LABS: Base Excess ABG 3.6 mEq/L (-9-1.8); HCO3 ABG 30 mmol/L (19-24); Oxygen Saturation ABG 94.1 % (90-95); PCO2 ABG 54 mmHg (35-46); PO2 ABG 106 mm/Hg (80-95); pH ABG 7.36 (7.35-7.45)
[2018-12-29 05:38] LABS: Allen Test Pos (Pos)
[2018-12-29 05:45] LABS: INR 2.8 (0.9-1.1); Prothrombin Time 26.6 Seconds (9.0-12.0)
[2018-12-29 05:53] LABS: Basophilic Stippling 1+
[2018-12-29 06:02] LABS: BUN Creatinine Ratio 47.8 (10-20); Calcium 8.1 mg/dl (8.5-10.1); Creatinine Clr Calc Pharmacy 112.9 ml/min; Est GFR (African American) 69.1; Est GFR (Non-African American) 59.6; Magnesium 1.6 mg/dl (1.8-2.4); Phosphorus 2.6 mg/dl (2.5-4.9); Potassium 3.4 mmol/L (3.5-5.1)
[2018-12-29] MEDS: CEFTOLOZANE/TAZOBACTAM 3,000 MG in DEXTROSE 5% 100 ML IV SCH ×3 (06:22→22:22)
[2018-12-29] MEDS ORDERED: POTASSIUM CHLORIDE 20 MEQ TABCR PO STA (06:28)
--- NOTE | 2018-12-29 07:43 | Critical Care Progress Note ---
Date of Service December 29, 2018 Assessment & Plan (1) Admitted to intensive care unit: Reason Critically Ill: 63-year-old male here for BiPAP management in the setting of trach. Past medical history significant for A. fib/a flutter on Coumadin, history of DVT, chronic systolic CHF, tachybrady syndrome s/p pacemaker implantation in 2015, during that time he required tracheostomy for acute respiratory decompensation, uses a speaking valve chronically, morbidly obese with BMI of 60, HTN, HLD, hypothyroidism, history of invasive group B strep infection in July, August and September 2017, gait disorder, has been bedbound for approximately 2 years, lower extremity edema, depression, anemia of chronic disease, KEARA, venous insufficiency, obesity hypoventilation syndrome. Code Status: full code, addressing goals of care Neuro: -CAM ICU: NEGATIVE -No concerns at present Cardiac: Heart failure secondary to idiopathic cardiomyopathy. Acute on chronic systolic CHF, last echo 2015 showing LVEF of 40%. Most recent echo demonstrate normal EF with moderate to the reduced right-sided RV function likely secondary to OHS and KEARA. Cardiology consulted following recommendations -Metoprolol 50 mg p.o. twice daily -Holding diuretics in the setting of hypotension -BNP 15,746 -> 26,034 -Chest x-ray from 12/27 demonstrates cardiomegaly, bilateral pleural effusions right greater than left, bilateral pulmonary airspace opacities right greater than left pulmonary vascular congestion -12/28 stable components of mild congestive failure unchanged from right and to lesser extent left pleural effusion Nonsustained V. tach Frequent PVCs and short runs of A. tach, V. tach runs roughly 2-4 beats per frequent with associated bigeminy that is asymptomatic -As above Respiratory: Shortness of breath morning of 12/27 patient was doing well given another dose of Lasix 40 mg in the afternoon noted that he was obtunded having respiratory difficulty respiratory therapy was called and suctioned a mucous plug. He was put on BiPAP and an episode of hypotension afterwards concern for auto peeping. Given that his trach collar had to be inflated he was transferred to the ICU. Hold diuretics secondary to hypotension see ID -CXR concerning for atelectasis versus pulmonary congestion KEARA Status post trach placement in 2016 previous noncompliance with CPAP for KEARA -CPAP at bedtime Obesity hypoventilation syndrome As above GI: Morbidly obese has been bedbound for 2 years secondary to obesity Severe protein calorie malnutrition Albumin 1.5 this is a poor prognostic factor -Trend labs, BMP, albumin RENAL/LYTES: -Replace lytes as needed. ADAM (resolved) Presents with a creatinine of 8.4 on admission was determined to be secondary to obstruction. Fitch bulb was in the urethra and causing causing trauma in the setting of an INR greater than 10 with gross hematuria. Postobstructive ADAM with ATN now resolving. Fitch bag still shows dark red urine. Nephrology consulted following the recommendations -Volume status acceptable will need BMP within 1 week of discharge -Furosemide held secondary to hypotension -Cr 1.28 today Hypernatremia Patient's sodium peaked at 151 was provided D5W and sodium has been downtrending since. -Sodium 145 this morning holding D5W -Patient is at risk for hypernatremia with further diuretic therapy would use cautiously Gross hematuria Secondary to Fitch trauma setting INR greater than 10 -Still having some bloody output Right renal mass Unclear if ever biopsied or diagnosed Abnormal CT of the abdomen Patient has a history of extraperitoneal fluid collections unclear if these are microabscesses versus small hematomas. More likely hematoma given new ones noted with supratherapeutic INR -Repeat CT 12/21 decreased size of collections -Follow imaging -If hemoglobin drops would repeat CT abdomen : Urinary tract infection second to chronic indwelling Fitch catheter On admission patient presented with a UTI and profound obstruction as described above. Urine was purulent and noted to drain out of the Fitch after being replaced by urology approximately 3 L. Culture from 12/20 grew stenotrophomonas. ID felt that it was a colonizer and not to treat. 2 urine cultures grew out Julia. Fluconazole x7 UA on 12/27 for increasing WBCs ENDO: -No acute concerns HEME: Anemia: Acute blood loss anemia secondary to chronic disease anemia and iron deficiency anemia Baseline hemoglobin 9-10 received 7 units of PRBCs so far this admission -Hemoglobin dropped from 7.4-7.1 today likely represents hemodilution secondary to D5W ministration for hypernatremia ID: Bacteremia There has been a concern that this patient has had an occult infection given his hypotension, and acute decompensation yesterday.Blood urine and sputum cultures were obtained. Blood cultures positive for gram-negative bacilli and gram- positive cocci in chains. Given the patient's history of frequent MDRO infections it will be pertinent to keep this in mind with antibiotic selection -Cultures demonstrate gram-negative bacilli and gram-positive cocci in chains -Patient started on empiric Zosyn and Zerbaxa -Narrow pending speciation and sensitivities -Infectious disease consulted appreciate recommendations -Continue broad-spectrum antibiotics pending speciation and sensitivities History of stenotrophomonas Infectious disease feels that this is a colonizer and would not treat. Furthermore there is a concern that the use of Bactrim in the setting of renal failure and elevated INR. INTEGUMENTARY: No acute concerns LINES/IV ACCESS: -PIVs intact. DVT PROPHYLAXIS: -SCD's -Most contraindicated most recent INR 2.8 Dispo:ICU Thank you for allowing us to be part of this patient's care. Please refer to Dr. Godfrey's documentation for any further recommendations. (2) Chronic hypercapnic respiratory failure: (3) Gram negative sepsis: (4) Bacteremia: (5) Acute hypercapnic respiratory failure: (6) UTI (urinary tract infection) due to urinary indwelling Fitch catheter: (7) Elevated INR: Supervising Physician Co-Signing Physician Notes Dr. Garland was the resident-physician during care of patient. I separately evaluated patient for duggan portions of the history and the exam. I was present during the critical portion of medical decision making, and I discussed the case with the resident. I generally agree with the findings and plan except for any additions/exceptions noted. His mental status is improved today. His sodium is improved to 145 with D5W. We will stop the D5W. He is at risk for hypernatremia with further Lasix. He is growing Streptococcus from his blood along with gram-negative rods. He is currently on vancomycin and Zerbaxa. I do not see much utility in Bactrim. I am concerned of Bactrim because renal failure and an elevated INR. He has been doing well with his cuff deflated. I think he is safe to be transferred out of ICU to a floor bed with telemetry. Subjective Patient doing well this morning in no acute distress. BiPAP turned off and cuff deflated patient maintaining saturation off BiPAP. Patient reports feeling better, mentating better. Ongoing conversations about goals of care. No acute concerns, all questions answered. Patient stable for downgrade. Physical Exam Physical Exam: General: Morbidly obese gentleman laying in bed HEENT: EOMI normocephalic atraumatic Neck: Trachea midline, no normal to visual inspection Cardiac: Regular rate and rhythm I do not appreciate murmurs rubs or gallops normal S1 normal S2, profound pedal edema bilaterally no calf tenderness Respiratory: Clear to auscultation bilaterally with slight symmetrical chest expansion I did not appreciate wheezes rales or rhonchi GI: Normal bowel sounds nondistended nontender MSK: Moves all extremities Skin: Warm, dry, intact Neuro:Alert unable to assess orientation Psych: Cooperative Results & Data Vital Signs (Past 12 Hours) Vital Signs Temp Pulse Resp BP Pulse Ox 12/29/18 06:30 69 15 138/65 100 12/29/18 06:01 70 17 135/67 100 12/29/18 05:30 66 18 118/54 L 99 12/29/18 05:00 68 15 143/78 H 99 12/29/18 04:30 69 17 149/69 H 99 12/29/18 04:00 36.6 C 63 13 160/70 H 100 12/29/18 03:30 72 20 142/83 H 99 12/29/18 03:00 67 16 129/72 100 12/29/18 02:30 67 20 141/91 H 100 12/29/18 02:00 68 17 159/76 H 100 12/29/18 01:30 70 16 135/65 99 12/29/18 01:01 74 19 162/120 H 100 12/29/18 00:31 76 19 147/68 H 100 12/29/18 00:00 82 19 115/68 100 12/28/18 23:30 89 19 124/76 99 12/28/18 23:00 105 H 32 H 181/111 H 88 L 12/28/18 22:00 88 25 H 172/74 H 95 12/28/18 21:00 94 H 22 180/103 H 93 12/28/18 20:00 36.6 C 97 H 26 H 91/78 L 86 L PG Care Time/CCT Total # of Minutes Spent Total Time Spent with Patient: Total time spent is greater than 50% in coordination of care (as documented) at patient's floor/unit and/or counseling patient: Critical Care Time: Yes Total Critical Care Time: 35 Resident Activity Tracking Resident Involvement: Resident Care Provided Care Provided: Adult Hospital Medicine (ICU: Sepesis, trach requiring bipap, profound lymphedema )
[2018-12-29] MEDS: FLUCONAZOLE 100 MG TAB PO SCH (08:20)
[2018-12-29] MEDS: NEPHROCAPS PO SCH (08:20)
[2018-12-29] MEDS: FERROUS SULFATE 325 MG TAB PO SCH (08:21)
[2018-12-29] MEDS: SERTRALINE HCL 50 MG TABLET PO SCH (08:21)
[2018-12-29] MEDS: SIMVASTATIN 10 MG TAB PO SCH (08:21)
[2018-12-29] MEDS: PANTOprazole 40 MG TAB PO SCH (08:21)
[2018-12-29] MEDS: NYSTATIN POWDER 15GM BTL EXT SCH (08:21)
[2018-12-29] MEDS: LEVOTHYROXINE SODIUM 100 MCG TABLET PO SCH (08:21)
[2018-12-29] MEDS: CHLORHEXIDINE GLUCONATE 0.12% 480 ML MT SCH ×2 (08:22→21:22)
[2018-12-29] MEDS: guaiFENesin 600 MG TABCR PO SCH ×2 (08:54→21:20)
[2018-12-29] MEDS: MAGNESIUM SULFATE / D5W 1 GM/100 ML BAG IV SCH ×2 (10:51→11:42)
[2018-12-29] MEDS ORDERED: VANCOMYCIN TROUGH ONE (11:00)
[2018-12-29] MEDS ORDERED: CHLOROTHIAZIDE SODIUM 500 MG in DEXTROSE 5% 50 ML IV ONE (11:30)
[2018-12-29] MEDS ORDERED: POTASSIUM CHLORIDE 20 MEQ TABCR PO SCH (11:30)
[2018-12-29] MEDS: VANCOMYCIN HCL 2,500 MG in SODIUM CHLORIDE 0.9% 500 ML IV SCH ×3 (13:19→13:29)
--- NOTE | 2018-12-29 13:35 | Hospitalist Progress Note ---
Date of Service December 29, 2018 Assessment & Plan (1) Bacteremia: Blood cultures from 12/27 when he was in distress is growing Strep spc and Gram(-) bacilli. - On ceftolozane/tazobactam presently. - Added Bactrim on 12/28 for possibility that the Gram(-) is the Stenotrophomonas from his urine culture on 12/20 - Follow up repeat blood cultures (2) Shortness of breath: On AM of 12/27, was doing well. Gave another dose of Lasix 40mg IV. In the afternoon, noted that he was obtunded and having respiratory difficulty. Acute hypoxic respiratory failure. - Suctioned by respiratory therapy with decent mucus plug removed. - Put on BiPap -> Hypotension afterward, concerning for auto-PEEP. Transferred to ICU. - Now after BiPap, is doing much better. BP is stable. (3) Heart failure, systolic, due to idiopathic cardiomyopathy: Acute on chronic systolic CHF. Last echo in 2015 showing LVEF of 40%. Now with normal EF but with moderately reduced right sided RV function likely secondary to OHS and KEARA. - Continue metoprolol and increased to 50 mg po bid of tartrate as per cardiology for frequent PVCs, NSVT - Ordered CXR and BNP on 12/26 for increased shortness of breath. Indicated increased volume. Weight is up 45 kg from admission, but is likely inaccurate. - Giving Lasix IV (4) Supratherapeutic INR: INR of 10.4 on admission. - Received Vit K 10 mg IV in the ER, received FFP 2 units, then 2 more doses of Vit K after that on subsequent days. INR was down at 1.3. - Continue to hold warfarin - May need more PO Vit K due to poor nutrition - Does not have evidence of liver disease on labs or imaging - Follow INR in AM - On 12/29, his INR was back up to 2.8 despite being off warfarin -> Indicates poor stores of vitamin K. (5) Chronic indwelling Fitch catheter: Since 2015, has been bed-bound since that time. - Fitch was exchanged on 12/20 as above (6) ADAM (acute kidney injury): Presented with Cr of 8.4 on admission, secondary to obstruction--> Fitch bulb was in urethra and causing trauma in setting of INR>10 with gross hematuri a. Post-obstructive ADAM with ATN now resolving. - Nephrology followed, but signed off on 12/25. - Appreciate urologic management -> Removed prior Fitch and had large amount of bloody and purulent urine drain out--> 3L total initially. Replaced with Fitch 12/20. Will follow outpatient. - Can check a Cr in 1 week to see where baseline stands. On 12/26, Cr was down to 1.5. (7) UTI (urinary tract infection) due to urinary indwelling Fitch catheter: With UTI on admission secondary to profound obstruction as above. Purulent urine noted to drain out after Fitch replaced by urology. Ur cx from 12/20 grew Stenotrophomonas. ID felt Stenotroph was a colonizer and to not treat. Two urine cultures grew Julia. - Per ID, treating with fluconazole x 7 days. - UA repeated on 12/27 for increasing WBC -> Grew Julia albicans (8) Gross hematuria: With large amount of hematuria secondary to Fitch trauma in setting of INR>10 as above. (9) Anemia: Acute blood loss anemia in setting of chronic disease anemia and Fe- deficiency anemia. - Blood loss from gross hematuria and also with large hematoma in RUE from straining to pull himself upright/strain. Hematuria now resolved except some scant oozing at meatus. - Baseline Hgb is 9-10 - Received 7 units PRBCs so far this admission. (10) Atrial fibrillation and flutter: History of such and has pacer after aflutter ablation. Currently in NSR, paced rhythm, frequent PVCs and nonsustained VT runs. - Held metoprolol initially due to acute blood loss and ongoing bleeding but BPs now stable - Is on warfarin typically but being held as above. - Appreciate cardio consult (11) KEARA (obstructive sleep apnea): - s/p trach placement 2016 - previous noncompliance with CPAP for KEARA (12) Obesity hypoventilation syndrome: - noted, with trach in place (13) H/O tracheostomy: - spaced in 2016 following intubation and mechanical ventilation for respiratory failure - noncompliance with CPAP for KEARA and the trach was placed as a result - Was changed during last admission on 12/02/18 -trach care as per RT (14) Abnormal CT of the abdomen: With a h/o numerous extraperitoneal fluid collections with some up to 5cm in size, ? if these areas were microabscesses vs small hematomas vs a combination of the two. Consider old hematoma from even previous admission as well as possible. New ones noted with INR being significantly supratherapeutic again. - Repeat CT 12/21 with decreased size of collections - Follow along with imaging - Cystogram here without evidence of bladder perforation - If hgb drops without obvious source, would repeat CT abdomen (15) Renal mass, right: - Hx of right renal mass, unclear if ever diagnosed with cancer. (16) Depression: - Continue sertraline 100 mg daily and consider increasing due to signs of depression like apathy over healthcare needs (17) Hypothyroidism: - Continue levothyroxine 100 mcg daily TSH here is 3.48 (18) Morbid obesity with BMI of 60.0-69.9, adult: - BMI of 56.6 this time, was over 60 during last admission - HH/DM diet (19) Venous insufficiency: - Chronic, wound consult for ulcerations on the R calf - Lymphedema at baseline (20) Lymphedema: - Wound consulted - appreciate (21) Dyslipidemia: - Cont statin therapy (22) Severe protein-calorie malnutrition: Albumin severely low at 1.6 and persists. - Add nephrocaps for improved wound healing - Follow labs, BMP, Phos, albumin (23) Asthma: - Hx of such, continue nebs QID as per home meds, no acute issues but is requiring 40% FiO2 via trach collar (24) Nonsustained ventricular tachycardia: frequent PVCs and short runs of VT VT runs now only 2-4 beats but frequent, also continues with frequent bigem, asymptomatic LVEF now normalized -restarted metoprolol and increased to 50mg bid follow on tele -appreciate Cardio consult -replace K+ (25) Hematoma: RUE, from straining, edema improving now. - Elevate arm for swelling, ice (26) DVT prophylaxis: No chemical ppx ordered with supratherapeutic INR, gross hematuria - SCDs not able to be placed due to lymphedema and chronic wounds Subjective Feeling better today. Less shortness of breath. Review of Systems Review of Systems: All systems reviewed & are unremarkable except as noted in HPI & below Physical Exam Constitutional: WD/WN, vitals as above + morbidly obese; no altered mental status Eyes: EOM intact bilaterally; no conjunctival abnormality ENMT: external ear and nose normal, oropharynx normal Neck: trachea midline, no thyromegaly normal visual inspection Respiratory: normal respiratory effort, lungs clear to auscultation no respiratory distress Cardiovascular: RRR, no murmur, no edema Gastrointestinal (Abdomen): Inspection/Auscultation: abdomen normal to inspection; abdomen not distended Musculoskeletal: no cyanosis or clubbing, extremities motor strength 5/5 Skin: no rashes, warm and dry Neurologic: moves all extremities and awake Psychiatric: Orientation: alert, oriented to person and cooperative Results & Data Vital Signs (Past 12 Hours) Vital Signs Temp Pulse Resp BP Pulse Ox Pulse Ox 12/29/18 12:34 24 90 12/29/18 08:20 82 21 95 12/29/18 06:30 69 15 138/65 100 12/29/18 06:01 70 17 135/67 100 12/29/18 05:30 66 18 118/54 L 99 12/29/18 05:00 68 15 143/78 H 99 12/29/18 04:30 69 17 149/69 H 99 12/29/18 04:00 36.6 C 63 13 160/70 H 100 12/29/18 03:30 72 20 142/83 H 99 12/29/18 03:00 67 16 129/72 100 12/29/18 02:30 67 20 141/91 H 100 12/29/18 02:00 68 17 159/76 H 100 PG Care Time/CCT Total # of Minutes Spent Total Time Spent with Patient: Total time spent is greater than 50% in coordination of care (as documented) at patient's floor/unit and/or counseling patient: (1) Anemia Anemia type: other cause (2) Depression Depression Type: other depression Qualified Code(s): F32.89 - Other specified depressive episodes (3) Hypothyroidism Hypothyroidism type: acquired Qualified Code(s): E03.9 - Hypothyroidism, unspecified (4) Asthma Asthma severity: unspecified severity Asthma persistence: unspecified Asthma complication type: unspecified Qualified Code(s): J45.909 - Unspecified asthma, uncomplicated
--- NOTE | 2018-12-29 13:38 | Pharmacy Report ---
Pharmacy Abx Dose Short Note - Date of Service December 29, 2018 - Assessment & Plan Assessment * 63 year old M receiving ZERBAXA + VANCOMYCIN IV + FLUCONAZOLE PO for treatment of bacteremia / possible pulm infxn / possible UTI * Day # 5/10 Fluconazole; Day #2/? Vancomycin, Day #2/? Zerbaxa * One of two BLCX's growing GPC in chains (strep sp vs enterococcus) as well as GNR * Patient has a h/o MDR pseudomonas (sputum) + MRSA (sputum) as well as ESBL klebsiella (urine) + MDR proteus mirabilis (urine) * Patient also has a h/o Grp B strep bacteremia * Urine cx also growing stenotrophamonas maltophila and kaity albicans this admission * BPs stable, afebrile, O2 stats in 90's on FiO2 50% (unchanged), renal fxn improving (SCr 1.52 -->1.28) * Procal 0.19 * MRSA nasal swab negative Plan Vancomycin * Vancomycin trough obtained this AM following one maint dose of 2500mg (~11mg/kg). Trough level is supratherapeutic 28.9mcg/mL. Prior dose had been hung on time and this level was drawn at the appropriate time. * Next maintenance dose was held as a result * Will check a random level in 12 hrs to assess rate of clearance to help guide future doses * Treatment will be challenging given extremes of body weight (BMI 71) and lack of representation of this population in kinetic studies * Goal trough level for bacteremia : 15 to 20 mcg/mL * P'kinetic estimates: Vd < or = 0.5L/kg (due to BMI > 40), half-life > 12 hrs * Might consider use of daptomycin as alternative agent if pulmonary source of infection r/o - however daptomycin should not be used if strep species ID'd as viridans strep Zerbaxa * eCrCl > 50, given body habitus and bacteremia would rec maximum dose: 3gm IV Q 8 hrs Pharmacy will continue to follow and will adjust dose/frequency as necessary. Thank you.
[2018-12-29] MEDS ORDERED: PHYTONADIONE 5 MG TAB PO STA (16:30)
[2018-12-29] MEDS: SULFAMETHOXAZOLE/TRIMETHOPRIM DS 800/160MG TAB PO SCH (21:20)
[2018-12-30 05:40] LABS: Hematocrit (blood only) 24.9 % (42-52); Hemoglobin 7.4 g/dL (14.0-18.0); Mean Corpuscular Hemoglobin 27.6 pg (25-34); Mean Corpuscular Hgb Conc 29.7 g/dL (32-36); Mean Corpuscular Volume 92.9 fL (80-100); Mean Platelet Volume 7.8 fL (7.4-10.4); Platelet Count 340 K/uL (130-400); RDW Coefficient of Variation 18.7 % (11.5-14.5); RDW Standard Deviation 62.3 fL (36.4-46.3); Red Blood Count 2.68 M/uL (4.7-6.1); White Blood Count 9.22 K/uL (4.8-10.8)
[2018-12-30 05:43] LABS: Base Excess VBG 2.7 mEq/L; Oxygen Saturation VBG 72.2 %; pH VBG 7.26 (7.36-7.41)
[2018-12-30 05:52] LABS: INR 1.6 (0.9-1.1); Prothrombin Time 16.3 Seconds (9.0-12.0)
[2018-12-30 06:21] LABS: Albumin Globulin Ratio 0.3 (0.9-2); Albumin Level 1.4 gm/dl (3.4-5.0); BUN Creatinine Ratio 40.9 (10-20); Bilirubin,Total 0.6 mg/dl (0.2-1); Calcium 8.4 mg/dl (8.5-10.1); Creatinine Clr Calc Pharmacy 118.1 ml/min; Est GFR (African American) 72.5; Est GFR (Non-African American) 62.5; Globulin 5.4 gm/dl (2.5-4.0); Magnesium 1.8 mg/dl (1.8-2.4); Phosphorus 2.9 mg/dl (2.5-4.9); Potassium 4.1 mmol/L (3.5-5.1); Total Protein 6.8 gm/dl (6.4-8.2)
[2018-12-30] MEDS: CEFTOLOZANE/TAZOBACTAM 3,000 MG in DEXTROSE 5% 100 ML IV SCH ×2 (06:28→14:08)
[2018-12-30] MEDS: LEVOTHYROXINE SODIUM 100 MCG TABLET PO SCH (07:21)
[2018-12-30] MEDS ORDERED: FUROSEMIDE 60 MG in SYRINGE 0 ML IV ONE (07:30)
[2018-12-30] MEDS: FERROUS SULFATE 325 MG TAB PO SCH (09:25)
[2018-12-30] MEDS: FLUCONAZOLE 100 MG TAB PO SCH (09:25)
[2018-12-30] MEDS: NEPHROCAPS PO SCH (09:26)
[2018-12-30] MEDS: guaiFENesin 600 MG TABCR PO SCH ×2 (09:26→21:09)
[2018-12-30] MEDS: SERTRALINE HCL 50 MG TABLET PO SCH (09:27)
[2018-12-30] MEDS: SULFAMETHOXAZOLE/TRIMETHOPRIM DS 800/160MG TAB PO SCH ×2 (09:27→21:08)
[2018-12-30] MEDS: PANTOprazole 40 MG TAB PO SCH (09:27)
[2018-12-30] MEDS: SIMVASTATIN 10 MG TAB PO SCH (09:27)
[2018-12-30] MEDS: CHLORHEXIDINE GLUCONATE 0.12% 480 ML MT SCH ×2 (09:28→21:08)
[2018-12-30] MEDS: NYSTATIN POWDER 15GM BTL EXT SCH (14:04)
--- NOTE | 2018-12-30 14:09 | Hospitalist Progress Note ---
Date of Service December 30, 2018 Assessment & Plan (1) Bacteremia: Blood cultures from 12/27 when he was in distress is growing Enterococcus and Providencia. - Stopped ceftolozane/tazobactam on 12/30. - On Bactrim since 12/28 for the Providencia. Added ampicillin on 12/30 for the Enterococcus. - Follow up repeat blood cultures (2) Shortness of breath: On AM of 12/27, was doing well. Gave another dose of Lasix 40mg IV. In the afternoon, noted that he was obtunded and having respiratory difficulty. Acute hypoxic respiratory failure. - Suctioned by respiratory therapy with decent mucus plug removed. - Put on BiPap -> Hypotension afterward, concerning for auto-PEEP. Transferred to ICU. - Out of ICU on 12/29, but already shortness of breath is back. Considering comfort care per . (3) Heart failure, systolic, due to idiopathic cardiomyopathy: Acute on chronic systolic CHF. Last echo in 2015 showing LVEF of 40%. Now with normal EF but with moderately reduced right sided RV function likely secondary to OHS and KEARA. - Continue metoprolol and increased to 50 mg po bid of tartrate as per cardiology for frequent PVCs, NSVT - Ordered CXR and BNP on 12/26 for increased shortness of breath. Indicated increased volume. Weight is up 45 kg from admission, but is likely inaccurate. - Giving Lasix IV as able (4) Supratherapeutic INR: INR of 10.4 on admission. - Received Vit K 10 mg IV in the ER, received FFP 2 units, then 2 more doses of Vit K after that on subsequent days. INR was down at 1.3. - Continue to hold warfarin - May need more PO Vit K due to poor nutrition - Does not have evidence of liver disease on labs or imaging - Follow INR in AM - On 12/30, his INR was 1.6. He required another round of vitamin K 5mg PO on 12/29. (5) Chronic indwelling Fitch catheter: Since 2015, has been bed-bound since that time. - Fitch was exchanged on 12/20 as above (6) ADAM (acute kidney injury): Presented with Cr of 8.4 on admission, secondary to obstruction--> Fitch bulb was in urethra and causing trauma in setting of INR>10 with gross hematuria. Post-obstructive ADAM with ATN now resolving. - Nephrology followed, but signed off on 12/25. - Appreciate urologic management -> Removed prior Fitch and had large amount of bloody and purulent urine drain out -> 3L total initially. Replaced with Fitch 12/20. Will follow outpatient. - Can check a Cr in 1 week to see where baseline stands. On 12/26, Cr was down to 1.5. (7) UTI (urinary tract infection) due to urinary indwelling Fitch catheter: With UTI on admission secondary to profound obstruction as above. Purulent urine noted to drain out after Fitch replaced by urology. Ur cx from 12/20 grew Stenotrophomonas. ID felt Stenotroph was a colonizer and to not treat. Two urine cultures grew Julia. - Per ID, treating with fluconazole x 7 days. - UA repeated on 12/27 for increasing WBC -> Grew Julia albicans (8) Gross hematuria: With large amount of hematuria secondary to Fitch trauma in setting of INR>10 as above. (9) Anemia: Acute blood loss anemia in setting of chronic disease anemia and Fe- deficiency anemia. - Blood loss from gross hematuria and also with large hematoma in RUE from straining to pull himself upright/strain. Hematuria now resolved except some scant oozing at meatus. - Baseline Hgb is 9-10 - Received 7 units PRBCs so far this admission. (10) Atrial fibrillation and flutter: History of such and has pacer after aflutter ablation. Currently in NSR, paced rhythm, frequent PVCs and nonsustained VT runs. - Held metoprolol initially due to acute blood loss and ongoing bleeding but BPs now stable - Is on warfarin typically but being held as above. - Appreciate cardio consult (11) KEARA (obstructive sleep apnea): - s/p trach placement 2016 - previous noncompliance with CPAP for KEARA (12) Obesity hypoventilation syndrome: - noted, with trach in place (13) H/O tracheostomy: - spaced in 2015 following intubation and mechanical ventilation for respiratory failure - noncompliance with CPAP for KEARA and the trach was placed as a result - Was changed during last admission on 12/02/18 -trach care as per RT (14) Abnormal CT of the abdomen: With a h/o numerous extraperitoneal fluid collections with some up to 5cm in size, ? if these areas were microabscesses vs small hematomas vs a combinati on of the two. Consider old hematoma from even previous admission as well as possible. New ones noted with INR being significantly supratherapeutic again. - Repeat CT 12/21 with decreased size of collections - Follow along with imaging - Cystogram here without evidence of bladder perforation - If hgb drops without obvious source, would repeat CT abdomen (15) Renal mass, right: - Hx of right renal mass, unclear if ever diagnosed with cancer. (16) Depression: - Continue sertraline 100 mg daily and consider increasing due to signs of depression like apathy over healthcare needs (17) Hypothyroidism: - Continue levothyroxine 100 mcg daily TSH here is 3.48 (18) Morbid obesity with BMI of 60.0-69.9, adult: - BMI of 56.6 this time, was over 60 during last admission - HH/DM diet (19) Venous insufficiency: - Chronic, wound consult for ulcerations on the R calf - Lymphedema at baseline (20) Lymphedema: - Wound consulted - appreciate (21) Dyslipidemia: - Cont statin therapy (22) Severe protein-calorie malnutrition: Albumin severely low at 1.6 and persists. - Add nephrocaps for improved wound healing - Follow labs, BMP, Phos, albumin (23) Asthma: - Hx of such, continue nebs QID as per home meds, no acute issues but is requiring 40% FiO2 via trach collar (24) Nonsustained ventricular tachycardia: frequent PVCs and short runs of VT VT runs now only 2-4 beats but frequent, also continues with frequent bigem, asymptomatic LVEF now normalized -restarted metoprolol and increased to 50mg bid follow on tele -appreciate Cardio consult -replace K+ (25) Hematoma: RUE, from straining, edema improving now. - Elevate arm for swelling, ice (26) DVT prophylaxis: No chemical ppx ordered with supratherapeutic INR, gross hematuria - SCDs not able to be placed due to lymphedema and chronic wounds Subjective Somewhat obtunded again. Reports his breathing is "ok," but otherwise cannot complete ROS. Review of Systems Review of Systems: Unobtainable due to cognitive status Physical Exam Constitutional: WD/WN, vitals as above + morbidly obese, + altered mental status and + lethargic Eyes: EOM intact bilaterally; no conjunctival abnormality ENMT: external ear and nose normal, oropharynx normal Neck: trachea midline, no thyromegaly normal visual inspection Respiratory: normal respiratory effort, lungs clear to auscultation no respiratory distress Cardiovascular: RRR, no murmur, no edema Gastrointestinal (Abdomen): Inspection/Auscultation: abdomen normal to inspection; abdomen not distended Musculoskeletal: no cyanosis or clubbing, extremities motor strength 5/5 Skin: no rashes, warm and dry Neurologic: moves all extremities and awake Psychiatric: Orientation: oriented to person and cooperative; + not alert Results & Data Vital Signs (Past 12 Hours) Vital Signs Temp Pulse Pulse Resp BP Pulse Ox 12/30/18 10:52 86 12/30/18 07:24 36.7 C 99 H 22 176/89 H 95 12/30/18 04:32 36.8 C 92 H 26 H 150/66 H 94 PG Care Time/CCT Total # of Minutes Spent Total Time Spent with Patient: Total time spent is greater than 50% in coordination of care (as documented) at patient's floor/unit and/or counseling patient: (1) Anemia Anemia type: other cause (2) Depression Depression Type: other depression Qualified Code(s): F32.89 - Other specified depressive episodes (3) Hypothyroidism Hypothyroidism type: acquired Qualified Code(s): E03.9 - Hypothyroidism, unspecified (4) Asthma Asthma complication type: unspecified Asthma persistence: unspecified Asthma severity: unspecified severity Qualified Code(s): J45.909 - Unspecified asthma, uncomplicated
[2018-12-30] MEDS: AMPICILLIN 2,000 MG in SODIUM CHLOR 0.9% AD-VAN 100 ML IV SCH ×3 (16:16→21:09)
[2018-12-30] MEDS ORDERED: MoRPHine SULFATE 4 MG/ML 1 ML CARP\\VIAL IV PRN (17:03)
[2018-12-30] MEDS ORDERED: LORazepam 1 MG/2 ML VIAL IV PRN (17:10)
[2018-12-31] MEDS: AMPICILLIN 2,000 MG in SODIUM CHLOR 0.9% AD-VAN 100 ML IV SCH ×6 (03:11→22:50)
[2018-12-31] MEDS: LEVOTHYROXINE SODIUM 100 MCG TABLET PO SCH (05:33)
[2018-12-31 06:05] LABS: Hematocrit (blood only) 25.2 % (42-52); Hemoglobin 7.4 g/dL (14.0-18.0); Mean Corpuscular Hemoglobin 27.1 pg (25-34); Mean Corpuscular Hgb Conc 29.4 g/dL (32-36); Mean Corpuscular Volume 92.3 fL (80-100); Mean Platelet Volume 7.9 fL (7.4-10.4); Platelet Count 319 K/uL (130-400); RDW Coefficient of Variation 18.7 % (11.5-14.5); RDW Standard Deviation 61.3 fL (36.4-46.3); Red Blood Count 2.73 M/uL (4.7-6.1); White Blood Count 9.16 K/uL (4.8-10.8)
[2018-12-31 06:16] LABS: INR 1.4 (0.9-1.1); Prothrombin Time 14.2 Seconds (9.0-12.0)
[2018-12-31 06:48] LABS: BUN Creatinine Ratio 40.5 (10-20); Calcium 8.3 mg/dl (8.5-10.1); Creatinine Clr Calc Pharmacy 128.5 ml/min; Est GFR (African American) 80.3; Est GFR (Non-African American) 69.3; Potassium 3.9 mmol/L (3.5-5.1)
[2018-12-31] MEDS: guaiFENesin 600 MG TABCR PO SCH ×2 (08:29→20:32)
[2018-12-31] MEDS: CHLORHEXIDINE GLUCONATE 0.12% 480 ML MT SCH ×2 (08:29→20:32)
[2018-12-31] MEDS: SIMVASTATIN 10 MG TAB PO SCH (08:30)
[2018-12-31] MEDS: SULFAMETHOXAZOLE/TRIMETHOPRIM DS 800/160MG TAB PO SCH ×2 (08:30→20:32)
[2018-12-31] MEDS: SERTRALINE HCL 50 MG TABLET PO SCH (08:30)
[2018-12-31] MEDS: FERROUS SULFATE 325 MG TAB PO SCH (08:30)
[2018-12-31] MEDS: NEPHROCAPS PO SCH (08:30)
[2018-12-31] MEDS: FLUCONAZOLE 100 MG TAB PO SCH (08:30)
[2018-12-31] MEDS: PANTOprazole 40 MG TAB PO SCH (08:30)
[2018-12-31] MEDS: NYSTATIN POWDER 15GM BTL EXT SCH (08:32)
[2018-12-31] MEDS ORDERED: FUROSEMIDE 60 MG in SYRINGE 0 ML IV STA (08:45)
--- NOTE | 2018-12-31 13:41 | Hospitalist Progress Note ---
Date of Service December 31, 2018 Assessment & Plan (1) Bacteremia: Blood cultures from 12/27 when he was in distress is growing Enterococcus and Providencia. - Stopped ceftolozane/tazobactam on 12/30. - On Bactrim since 12/28 for the Providencia. Added ampicillin on 12/30 for the Enterococcus. End date abx: 01/12/19 for a 2 week course. - Follow up repeat blood cultures from 12/28 - As of 12/31, still negative. (2) Shortness of breath: On AM of 12/27, was doing well. Gave another dose of Lasix 40mg IV. In the afternoon, noted that he was obtunded and having respiratory difficulty. Acute hypoxic respiratory failure. - Suctioned by respiratory therapy with decent mucus plug removed. - Put on BiPap -> Hypotension afterward, concerning for auto-PEEP. Transferred to ICU. - Out of ICU on 12/29, but already shortness of breath is back. After discussion on 12/30, patient is now DNR/DNI. Will get palliative involved on Tuesday. (3) Heart failure, systolic, due to idiopathic cardiomyopathy: Acute on chronic systolic CHF. Last echo in 2015 showing LVEF of 40%. Now with normal EF but with moderately reduced right sided RV function likely secondary to OHS and KEARA. - Continue metoprolol and increased to 50 mg po bid of tartrate as per cardiology for frequent PVCs, NSVT - Ordered CXR and BNP on 12/26 for increased shortness of breath. Indicated increased volume. Weight is up 45 kg from admission, but is likely inaccurate. - Giving Lasix IV as able - Gave 60mg IV x 1 on 12/30 & 12/31 - Yesterday had a large output (3L) from it and was net -2L. Weight also down by 1.5 kg. (4) Supratherapeutic INR: INR of 10.4 on admission. - Received Vit K 10 mg IV in the ER, received FFP 2 units, then 2 more doses of Vit K after that on subsequent days. INR was down at 1.3. - Continue to hold warfarin - May need more PO Vit K due to poor nutrition - Does not have evidence of liver disease on labs or imaging - Follow INR in AM - On 12/31, his INR was 1.4. He required another round of vitamin K 5mg PO on 12/29. (5) Chronic indwelling Fitch catheter: Since 2015, has been bed-bound since that time. - Fitch was exchanged on 12/20 as above (6) ADAM (acute kidney injury): Presented with Cr of 8.4 on admission, secondary to obstruction--> Fitch bulb was in urethra and causing trauma in setting of INR>10 with gross hematuria. Post-obstructive ADAM with ATN now resolving. - Nephrology followed, but signed off on 12/25. - Appreciate urologic management -> Removed prior Fitch and had large amount of bloody and purulent urine drain out -> 3L total initially. Replaced with Fitch 12/20. Will follow outpatient. - Can check a Cr in 1 week to see where baseline stands. On 12/31, Cr was down to 1.3. (7) UTI (urinary tract infection) due to urinary indwelling Fitch catheter: With UTI on admission secondary to profound obstruction as above. Purulent urine noted to drain out after Fitch replaced by urology. Ur cx from 12/20 grew Stenotrophomonas. ID felt Stenotroph was a colonizer and to not treat. Two urine cultures grew Julia. - Per ID, treating with fluconazole x 7 days. - UA repeated on 12/27 for increasing WBC -> Grew Julia albicans (8) Gross hematuria: With large amount of hematuria secondary to Fitch trauma in setting of INR>10 as above. (9) Anemia: Acute blood loss anemia in setting of chronic disease anemia and Fe- deficiency anemia. - Blood loss from gross hematuria and also with large hematoma in RUE from straining to pull himself upright/strain. Hematuria now resolved except some scant oozing at meatus. - Baseline Hgb is 9-10 - Received 7 units PRBCs so far this admission. (10) Atrial fibrillation and flutter: History of such and has pacer after aflutter ablation. Currently in NSR, paced rhythm, frequent PVCs and nonsustained VT runs. - Held metoprolol initially due to acute blood loss and ongoing bleeding but BPs now stable - Is on warfarin typically but being held as above. - Appreciate cardio consult (11) KEARA (obstructive sleep apnea): - s/p trach placement 2015 - previous noncompliance with CPAP for KEARA (12) Obesity hypoventilation syndrome: - noted, with trach in place (13) H/O tracheostomy: - spaced in 2016 following intubation and mechanical ventilation for respiratory failure - noncompliance with CPAP for KEARA and the trach was placed as a result - Was changed during last admission on 12/02/18 -trach care as per RT (14) Abnormal CT of the abdomen: With a h/o numerous extraperitoneal fluid collections with some up to 5cm in size, ? if these areas were microabscesses vs small hematomas vs a combination of the two. Consider old hematoma from even previous admission as well as possible. New ones noted with INR being significantly supratherapeutic again. - Repeat CT 12/21 with decreased size of collections - Follow along with imaging - Cystogram here without evidence of bladder perforation - If hgb drops without obvious source, would repeat CT abdomen (15) Renal mass, right: - Hx of right renal mass, unclear if ever diagnosed with cancer. (16) Depression: - Continue sertraline 100 mg daily and consider increasing due to signs of depression like apathy over healthcare needs (17) Hypothyroidism: - Continue levothyroxine 100 mcg daily TSH here is 3.48 (18) Morbid obesity with BMI of 60.0-69.9, adult: - BMI of 56.6 this time, was over 60 during last admission - HH/DM diet (19) Venous insufficiency: - Chronic, wound consult for ulcerations on the R calf - Lymphedema at baseline (20) Lymphedema: - Wound consulted - appreciate (21) Dyslipidemia: - Cont statin therapy (22) Severe protein-calorie malnutrition: Albumin severely low at 1.6 and persists. - Add nephrocaps for improved wound healing - Follow labs, BMP, Phos, albumin (23) Asthma: - Hx of such, continue nebs QID as per home meds, no acute issues but is requiring 40% FiO2 via trach collar (24) Nonsustained ventricular tachycardia: frequent PVCs and short runs of VT VT runs now only 2-4 beats but frequent, also continues with frequent bigem, asymptomatic LVEF now normalized -restarted metoprolol and increased to 50mg bid follow on tele -appreciate Cardio consult -replace K+ (25) Hematoma: RUE, from straining, edema improving now. - Elevate arm for swelling, ice (26) DVT prophylaxis: No chemical ppx ordered with supratherapeutic INR, gross hematuria - SCDs not able to be placed due to lymphedema and chronic wounds Subjective Feeling better today. Reports his breathing is improved. No other focal complaints. Appears alert and awake. Review of Systems Review of Systems: All systems reviewed & are unremarkable except as noted in HPI & below Physical Exam Constitutional: WD/WN, vitals as above + morbidly obese; no altered mental status and not lethargic Eyes: EOM intact bilaterally; no conjunctival abnormality ENMT: external ear and nose normal, oropharynx normal Neck: trachea midline, no thyromegaly normal visual inspection Respiratory: no respiratory distress and no labored breathing Auscultation: + diminished lung sounds and + rhonchi Cardiovascular: RRR, no murmur, no edema Gastrointestinal (Abdomen): Inspection/Auscultation: abdomen normal to inspection; abdomen not distended Musculoskeletal: no cyanosis or clubbing, extremities motor strength 5/5 Skin: no rashes, warm and dry Neurologic: moves all extremities and awake Psychiatric: Orientation: alert, oriented to person and cooperative Results & Data Vital Signs (Past 12 Hours) Vital Signs Temp Pulse Pulse Resp BP Pulse Ox 12/31/18 11:12 36.9 C 89 22 141/75 H 94 12/31/18 09:57 86 12/31/18 07:13 36.8 C 95 H 26 H 177/62 H 91 PG Care Time/CCT Total # of Minutes Spent Total Time Spent with Patient: Total time spent is greater than 50% in coordination of care (as documented) at patient's floor/unit and/or counseling patient: (1) Anemia Anemia type: other cause (2) Depression Depression Type: other depression Qualified Code(s): F32.89 - Other specified depressive episodes (3) Hypothyroidism Hypothyroidism type: acquired Qualified Code(s): E03.9 - Hypothyroidism, unspecified (4) Asthma Asthma severity: unspecified severity Asthma persistence: unspecified Asthma complication type: unspecified Qualified Code(s): J45.909 - Unspecified asthma, uncomplicated
[2019-01-01] MEDS: AMPICILLIN 2,000 MG in SODIUM CHLOR 0.9% AD-VAN 100 ML IV SCH ×6 (04:03→23:06)
[2019-01-01] MEDS: LEVOTHYROXINE SODIUM 100 MCG TABLET PO SCH (06:03)
[2019-01-01 07:57] LABS: Hemoglobin 7.7 g/dL (14.0-18.0); Mean Corpuscular Hemoglobin 27.7 pg (25-34); Mean Corpuscular Hgb Conc 29.6 g/dL (32-36); Mean Corpuscular Volume 93.5 fL (80-100); Mean Platelet Volume 7.9 fL (7.4-10.4); Platelet Count 287 K/uL (130-400); RDW Coefficient of Variation 18.9 % (11.5-14.5); RDW Standard Deviation 63.7 fL (36.4-46.3); Red Blood Count 2.78 M/uL (4.7-6.1); White Blood Count 7.76 K/uL (4.8-10.8)
[2019-01-01 08:11] LABS: INR 1.5 (0.9-1.1); Prothrombin Time 15.1 Seconds (9.0-12.0)
[2019-01-01] MEDS: SERTRALINE HCL 50 MG TABLET PO SCH (08:12)
[2019-01-01] MEDS: NEPHROCAPS PO SCH (08:12)
[2019-01-01] MEDS: FLUCONAZOLE 100 MG TAB PO SCH (08:12)
[2019-01-01] MEDS: guaiFENesin 600 MG TABCR PO SCH ×2 (08:12→20:28)
[2019-01-01] MEDS: FERROUS SULFATE 325 MG TAB PO SCH (08:12)
[2019-01-01] MEDS: SIMVASTATIN 10 MG TAB PO SCH (08:12)
[2019-01-01 08:28] LABS: BUN Creatinine Ratio 31.8 (10-20); Calcium 8.8 mg/dl (8.5-10.1); Creatinine Clr Calc Pharmacy 127.5 ml/min; Est GFR (African American) 81.2; Magnesium 1.8 mg/dl (1.8-2.4); Potassium 3.9 mmol/L (3.5-5.1)
[2019-01-01] MEDS: NYSTATIN POWDER 15GM BTL EXT SCH (08:41)
[2019-01-01] MEDS: PANTOprazole 40 MG TAB PO SCH (08:41)
[2019-01-01] MEDS: CHLORHEXIDINE GLUCONATE 0.12% 480 ML MT SCH ×2 (08:41→20:28)
[2019-01-01] MEDS: SULFAMETHOXAZOLE/TRIMETHOPRIM DS 800/160MG TAB PO SCH ×2 (09:17→20:28)
[2019-01-01] MEDS ORDERED: FUROSEMIDE 60 MG in SYRINGE 0 ML IV STA (09:45)
--- NOTE | 2019-01-01 10:53 | Palliative Care Consultation ---
Date of Consultation January 01, 2019 Assessment & Plan (1) Goals of care, counseling/discussion: -63 year old male patient who [facility] at local [facility] with extensive and complicated past medical history, most significantly morbid obesity, chronic respiratory failure with tracheostomy, presented to the hospital 12 days ago with gross hematuria. Patient had had many hospital admissions over the years. Was seen by palliative care back in 2015 to discuss goals of care and patient has maintained since then, until now, that he would want to be a full code, full treatment, etc. A complicating factor is that patient also refuses certain treatments and does not allow appropriate management of his medical conditions at times. At any rate, patient's hospital course has been complicated by ADAM and acute on chronic respiratory failure and heart failure. On 12/27, went into respiratory distress despite being given some IV Lasix. Was placed on bipap via his trach. Patient also being treated for UTI and sepsis. Discussion was had again about code status and GOC with patient's Tammy. She stated she just wants patient to be comfortable. patient's mental status did clear and he was able to participate in conversation over the weekend and agreed that he would NOT want to be placed back on bipap or ventilator. He also wants to be DNR. Palliative care is reconsulted to discuss GOC. -Patient is known to palliative care service. He was seen in room 201 this morning when no family at bedside. -patient mouths words but does not have speaking valve on trach. Patient oriented x4. -Patient confirmed his DNR status and agreed again that he would not want to go back on bipap. -patient is uncertain about his long-term goals of care once he leaves the hospital. He agreed to continue this conversation when his , Tammy, is available to discuss. -Palliative care will return to patient's room when available. -Given patient's many comorbidities including respiratory and heart failure, severe protein-calorie malnutrition with albumin 1.4, morbid obesity causing sedentary/bedbound lifestyle, recurrent infections and hospitalizations, prognosis is quite poor. This has been discussed many times with patient and his . Patient would certainly qualify for hospice care depending on his goals. -PPS 30%. (2) Acute hypercapnic respiratory failure: (3) Severe protein-calorie malnutrition: (4) Gross hematuria: History of Present Illness Reason for Consultation: Goals of care Requesting Physician: Dr. Hawkins Attending Physician: Yoni Hawkins MD History of Present Illness This 63 year old male patient who [facility] local [facility] with extensive and complicated past medical history, most significantly morbid obesity, chronic respiratory failure with tracheostomy, presented to the hospital 12 days ago with gross hematuria. Patient had had many hospital admissions over the years. Was seen by palliative care back in 2015 to discuss goals of care and patient has maintained since then, until now, that he would want to be a full code, full treatment, etc. A complicating factor is that patient also refuses certain treatments and does not allow appropriate management of his medical conditions at times. At any rate, patient's hospital course has been complicated by ADAM and acute on chronic respiratory failure and heart failure. On 12/27, went into respiratory distress despite being given some IV Lasix. Was placed on bipap via his trach. Patient also being treated for UTI and sepsis. Discussion was had again about code status and GOC with patient's Tammy. She stated she just wants patient to be comfortable. patient's mental status did clear and he was able to participate in conversation over the weekend and agreed that he would NOT want to be placed back on bipap or ventilator. He also wants to be DNR. Palliative care is reconsulted to discuss GOC. Thank you kindly for this consult. Palliative care team will follow as needed. Allergies Allergy/AdvReac Type Severity Reaction Status Date / Time cefepime Allergy Intermediate RASH Verified 12/28/18 12:33 latex Allergy Intermediate DERMITITIS Verified 11/29/18 10:01 aztreonam Allergy Mild RASH Verified 11/29/18 10:01 Home Medications Home Medications Medication Instructions Recorded Confirmed Type albuterol sulfate 2.5 mg/3 mL 2.5 mg INHALATION Q4H PRN ml 12/25/18 12/25/18 History (0.083 %) solution for nebulization aspirin 81 mg tablet 81 mg PO DAILY tab 12/25/18 12/25/18 History ferrous sulfate 325 mg (65 mg 325 mg PO BID tab 12/25/18 12/25/18 History iron) tablet furosemide 40 mg tablet 40 mg PO DAILY tab 12/25/18 12/25/18 History levothyroxine 100 mcg tablet 100 mcg PO DAILY tab 12/25/18 12/25/18 History metoprolol tartrate 25 mg tablet 25 mg PO DAILY tab 12/25/18 12/25/18 History pantoprazole 40 mg tablet,delayed 40 mg PO DAILY tab 12/25/18 12/25/18 History release sertraline 100 mg tablet 100 mg PO DAILY tab 12/25/18 12/25/18 History simvastatin 10 mg tablet 10 mg PO DAILY tab 12/25/18 12/25/18 History tamsulosin 0.4 mg capsule 0.4 mg PO DAILY cap 12/25/18 12/25/18 History warfarin 4 mg tablet 4 mg PO DAILY tab 12/25/18 12/25/18 History Patient History Medical History History of group B Streptococcus (GBS) infection Acute respiratory failure with hypoxia Pneumonia (Acute) Acute renal failure (Acute) Heart failure, systolic, due to idiopathic cardiomyopathy (Chronic) "echo 12/01/15 - EF 35-39%, abnormal diastolic dysfunction" KEARA (obstructive sleep apnea) (Chronic) Venous insufficiency (Chronic) Hx MRSA infection (Chronic) "02/2016 in sputum" Obesity hypoventilation syndrome Atrial fibrillation and flutter (Chronic) Pacemaker (Acute) 2011 - Tracheostomy tube present (Acute) 2015 - 05/13 obesity hypoventilation syndrome Ventral hernia (Acute) Anemia Asthma Atrial fibrillation on warfarin BPH (benign prostatic hyperplasia) chronic urinary retention requiring chronic indwelling fitch catheter Bacteremia due to group B Streptococcus 09/2017 - requiring indefinite oral suppressive antibiotic therapy Cardiomyopathy Chronic edema BLLE Chronic indwelling Fitch catheter Chronic respiratory failure Chronic venous stasis Congestive heart failure Generalized weakness Gross hematuria History of DVT (deep vein thrombosis) Hyperlipidemia Indwelling Fitch catheter present Lymphedema Major depressive disorder Morbid obesity Obesity hypoventilation syndrome On home oxygen therapy Recurrent UTI Sleep apnea Surgical History Status post placement of cardiac pacemaker H/O tracheostomy (Chronic) History of bronchoscopy w/ trach change 01/2018 [facility] History of cholecystectomy History of hernia repair Family History Other No significant family history Social History Preferred Language: Icelandic Communication Ability: Effective 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 Driver Required: No Beliefs That Will Affect Care: None marital status: Current Living Situation: Halfway Current Living Situation Comment: resident at [facility] Other Information That Helps Us Care for You: No Feels Safe at Home: Yes Safety Concerns: Feels Safe At This Time Smoking Status: Never smoker Hx Alcohol Use: No Hx Substance Use: No Review of Systems Review of Systems: Const: + weakness, no fever, no chills ENMT: No dysphagia Resp: No SOB, + cough Cardio: No chest pain, no edema GI: No abdominal pain, N/V MS: No musculoskeletal pain Neuro: No confusion Psych: No anxiety, no depression Physical Exam Constitutional: + morbidly obese and comfortable; no acute distress Eyes: PERRL, conjunctivae normal, anicteric sclerae ENMT: external ear and nose normal, oropharynx normal Neck: + tracheostomy present Respiratory: no labored breathing Auscultation: + diminished lung sounds and + rhonchi Cardiovascular: Rate/Rhythm: regular rate and regular rhythm Vessels: no JVD Gastrointestinal (Abdomen): Inspection/Auscultation: + significant pannus Percussion/Palpation: abdomen soft; abdomen nontender Neurologic: moves all extremities and awake Psychiatric: A+Ox3, euthymic affect Results & Data Vital Signs (Past 12 Hours) Vital Signs Temp Pulse Pulse Pulse Resp BP Pulse Ox 01/01/19 07:00 36.5 C 83 18 146/70 H 99 01/01/19 03:06 36.5 C 82 20 134/82 98 01/01/19 00:00 84 12/31/18 23:11 36.7 C 84 22 133/90 96 PG Care Time/CCT Total # of Minutes Spent Total Time Spent with Patient: Total time spent is greater than 50% in coordination of care (as documented) at patient's floor/unit and/or counseling patient: Time Spent Midlevel 60 minutes with >50% of the time spent at bedside with patient discussing condition and GOC.
--- NOTE | 2019-01-01 12:35 | Hospitalist Progress Note ---
Date of Service January 01, 2019 Assessment & Plan (1) Bacteremia: Blood cultures from 12/27 when he was in distress is growing Enterococcus and Providencia. - Stopped ceftolozane/tazobactam on 12/30. - On Bactrim since 12/28 for the Providencia. Added ampicillin on 12/30 for the Enterococcus. End date abx: 01/12/19 for a 2 week course. - Follow up repeat blood cultures from 12/28 - As of 12/31, still negative. (2) Shortness of breath: On AM of 12/27, was doing well. Gave another dose of Lasix 40mg IV. In the afternoon, noted that he was obtunded and having respiratory difficulty. Acute hypoxic respiratory failure. - Suctioned by respiratory therapy with decent mucus plug removed. - Put on BiPap -> Hypotension afterward, concerning for auto-PEEP. Transferred to ICU. - Out of ICU on 12/29, but shortness of breath was back within 1 day off BiPap. After discussion on 12/30, patient is now DNR/DNI. Palliative involved now as he does not want BiPap again. - Shortness of breath improving on 01/01 with continued aggressive diuresis. (3) Heart failure, systolic, due to idiopathic cardiomyopathy: Acute on chronic systolic CHF. Last echo in 2015 showing LVEF of 40%. Now with normal EF but with moderately reduced right sided RV function likely secondary to OHS and KEARA. - Continue metoprolol and increased to 50 mg po bid of tartrate as per cardiology for frequent PVCs, NSVT - Ordered CXR and BNP on 12/26 for increased shortness of breath. Indicated increased volume. Weight is up 45 kg from admission, but is likely inaccurate. - Giving Lasix IV as able - Gave 60mg IV x 1 on 12/30 - 01/01 - Yesterday had a large output (3L) from it and was net -2L. Weight also down by 3 kg. (4) Supratherapeutic INR: INR of 10.4 on admission. - Received Vit K 10 mg IV in the ER, received FFP 2 units, then 2 more doses of Vit K after that on subsequent days. INR was down at 1.3. - Continue to hold warfarin - May need more PO Vit K due to poor nutrition - Does not have evidence of liver disease on labs or imaging - Follow INR in AM - On 01/01, his INR was 1.5. He required another round of vitamin K 5mg PO on 12/29. (5) Chronic indwelling Fitch catheter: Since 2015, has been bed-bound since that time. - Fitch was exchanged on 12/20 as above (6) ADAM (acute kidney injury): Presented with Cr of 8.4 on admission, secondary to obstruction--> Fitch bulb was in urethra and causing trauma in setting of INR>10 with gross hematuria. Post-obstructive ADAM with ATN now resolving. - Nephrology followed, but signed off on 12/25. - Appreciate urologic management -> Removed prior Iftch and had large amount of bloody and purulent urine drain out -> 3L total initially. Replaced with Fitch 12/20. Will follow outpatient. - Can check a Cr in 1 week to see where baseline stands. On 12/31, Cr was down to 1.3. - Monitor on Lasix. (7) UTI (urinary tract infection) due to urinary indwelling Fitch catheter: With UTI on admission secondary to profound obstruction as above. Purulent urine noted to drain out after Fitch replaced by urology. Ur cx from 12/20 grew Stenotrophomonas. ID felt Stenotroph was a colonizer and to not treat. Two urine cultures grew Julia. - Per ID, treating with fluconazole x 7 days. - UA repeated on 12/27 for increasing WBC -> Grew Julia albicans (8) Gross hematuria: With large amount of hematuria secondary to Fitch trauma in setting of INR>10 as above. (9) Anemia: Acute blood loss anemia in setting of chronic disease anemia and Fe- deficiency anemia. - Blood loss from gross hematuria and also with large hematoma in RUE from straining to pull himself upright/strain. Hematuria now resolved except some scant oozing at meatus. - Baseline Hgb is 9-10 - Received 7 units PRBCs so far this admission. (10) Atrial fibrillation and flutter: History of such and has pacer after aflutter ablation. Currently in NSR, paced rhythm, frequent PVCs and nonsustained VT runs. - Held metoprolol initially due to acute blood loss and ongoing bleeding but BPs now stable - Is on warfarin typically but being held as above. - Appreciate cardio consult (11) KEARA (obstructive sleep apnea): - s/p trach placement 2015 - previous noncompliance with CPAP for KEARA (12) Obesity hypoventilation syndrome: - noted, with trach in place (13) H/O tracheostomy: - spaced in 2016 following intubation and mechanical ventilation for respiratory failure - noncompliance with CPAP for KEARA and the trach was placed as a result - Was changed during last admission on 12/02/18 -trach care as per RT (14) Abnormal CT of the abdomen: With a h/o numerous extraperitoneal fluid collections with some up to 5cm in size, ? if these areas were microabscesses vs small hematomas vs a combination of the two. Consider old hematoma from even previous admission as well as possible. New ones noted with INR being significantly supratherapeutic again. - Repeat CT 12/21 with decreased size of collections - Follow along with imaging - Cystogram here without evidence of bladder perforation - If hgb drops without obvious source, would repeat CT abdomen (15) Renal mass, right: - Hx of right renal mass, unclear if ever diagnosed with cancer. (16) Depression: - Continue sertraline 100 mg daily and consider increasing due to signs of depression like apathy over healthcare needs (17) Hypothyroidism: - Continue levothyroxine 100 mcg daily TSH here is 3.48 (18) Morbid obesity with BMI of 60.0-69.9, adult: - BMI of 56.6 this time, was over 60 during last admission - HH/DM diet (19) Venous insufficiency: - Chronic, wound consult for ulcerations on the R calf - Lymphedema at baseline (20) Lymphedema: - Wound consulted - appreciate (21) Dyslipidemia: - Cont statin therapy (22) Severe protein-calorie malnutrition: Albumin severely low at 1.6 and persists. - Add nephrocaps for improved wound healing - Follow labs, BMP, Phos, albumin (23) Asthma: - Hx of such, continue nebs QID as per home meds, no acute issues but is requiring 40% FiO2 via trach collar (24) Nonsustained ventricular tachycardia: frequent PVCs and short runs of VT VT runs now only 2-4 beats but frequent, also continues with frequent bigem, asymptomatic LVEF now normalized -restarted metoprolol and increased to 50mg bid follow on tele -appreciate Cardio consult -replace K+ (25) Hematoma: RUE, from straining, edema improving now. - Elevate arm for swelling, ice (26) DVT prophylaxis: No chemical ppx ordered with supratherapeutic INR, gross hematuria - SCDs not able to be placed due to lymphedema and chronic wounds Subjective Feeling well this morning. He denies any shortness of breath this morning. Review of Systems Review of Systems: All systems reviewed & are unremarkable except as noted in HPI & below Physical Exam Constitutional: WD/WN, vitals as above + morbidly obese; no altered mental status and not lethargic Eyes: EOM intact bilaterally; no conjunctival abnormality ENMT: external ear and nose normal, oropharynx normal Neck: trachea midline, no thyromegaly normal visual inspection Respiratory: normal respiratory effort, lungs clear to auscultation no respiratory distress and no labored breathing Auscultation: + diminished lung sounds and + rhonchi Cardiovascular: RRR, no murmur, no edema Gastrointestinal (Abdomen): Inspection/Auscultation: abdomen normal to inspection; abdomen not distended Musculoskeletal: no cyanosis or clubbing, extremities motor strength 5/5 Skin: no rashes, warm and dry Neurologic: moves all extremities and awake Psychiatric: Orientation: alert, oriented to person and cooperative Results & Data Vital Signs (Past 12 Hours) Vital Signs Temp Pulse Pulse Resp BP Pulse Ox 01/01/19 07:00 36.5 C 83 18 146/70 H 99 01/01/19 03:06 36.5 C 82 20 134/82 98 PG Care Time/CCT Total # of Minutes Spent Total Time Spent with Patient: Total time spent is greater than 50% in coordination of care (as documented) at patient's floor/unit and/or counseling patient: 35 (1) Anemia Anemia type: other cause (2) Depression Depression Type: other depression Qualified Code(s): F32.89 - Other specified depressive episodes (3) Hypothyroidism Hypothyroidism type: acquired Qualified Code(s): E03.9 - Hypothyroidism, unspecified (4) Asthma Asthma severity: unspecified severity Asthma persistence: unspecified Asthma complication type: unspecified Qualified Code(s): J45.909 - Unspecified asthma, uncomplicated
[2019-01-02] MEDS: AMPICILLIN 2,000 MG in SODIUM CHLOR 0.9% AD-VAN 100 ML IV SCH ×6 (02:59→23:23)
[2019-01-02] MEDS: LEVOTHYROXINE SODIUM 100 MCG TABLET PO SCH (05:41)
[2019-01-02 08:08] LABS: Hematocrit (blood only) 25.7 % (42-52); Hemoglobin 7.5 g/dL (14.0-18.0); Mean Corpuscular Hgb Conc 29.2 g/dL (32-36); Mean Corpuscular Volume 92.4 fL (80-100); Mean Platelet Volume 7.9 fL (7.4-10.4); Platelet Count 256 K/uL (130-400); RDW Standard Deviation 62.9 fL (36.4-46.3); Red Blood Count 2.78 M/uL (4.7-6.1); White Blood Count 6.92 K/uL (4.8-10.8)
[2019-01-02 08:17] LABS: INR 1.8 (0.9-1.1); Prothrombin Time 17.7 Seconds (9.0-12.0)
[2019-01-02 08:36] LABS: BUN Creatinine Ratio 29.7 (10-20); Calcium 8.7 mg/dl (8.5-10.1); Creatinine Clr Calc Pharmacy 145.7 ml/min; Est GFR (Non-African American) 79.3; Potassium 3.6 mmol/L (3.5-5.1)
[2019-01-02] MEDS: PANTOprazole 40 MG TAB PO SCH (08:49)
[2019-01-02] MEDS: SULFAMETHOXAZOLE/TRIMETHOPRIM DS 800/160MG TAB PO SCH ×2 (08:50→20:05)
[2019-01-02] MEDS: SIMVASTATIN 10 MG TAB PO SCH (08:50)
[2019-01-02] MEDS: SERTRALINE HCL 50 MG TABLET PO SCH (08:50)
[2019-01-02] MEDS: FERROUS SULFATE 325 MG TAB PO SCH (08:51)
[2019-01-02] MEDS: FLUCONAZOLE 100 MG TAB PO SCH (08:51)
[2019-01-02] MEDS: guaiFENesin 600 MG TABCR PO SCH ×2 (08:51→20:05)
[2019-01-02] MEDS: NEPHROCAPS PO SCH (08:51)
[2019-01-02] MEDS: CHLORHEXIDINE GLUCONATE 0.12% 480 ML MT SCH ×2 (08:52→20:07)
[2019-01-02] MEDS: NYSTATIN POWDER 15GM BTL EXT SCH (08:52)
[2019-01-02] MEDS: FUROSEMIDE 80 MG TAB PO SCH (15:10)
--- NOTE | 2019-01-02 17:01 | Hospitalist Progress Note ---
Date of Service January 02, 2019 Assessment & Plan (1) Bacteremia: Blood cultures from 12/27 when he was in distress is growing Enterococcus and Providencia. - Stopped ceftolozane/tazobactam on 12/30. - On Bactrim since 12/28 for the Providencia. Added ampicillin on 12/30 for the Enterococcus. End date abx: 01/12/19 for a 2 week course. - Follow up repeat blood cultures from 12/28 - As of 01/02, still negative. -Appears to be stable in this regard (2) Shortness of breath: -Has had significant ups and downs, but now appearing to be more stable - Out of ICU on 12/29, but shortness of breath was back within 1 day off BiPap. After discussion on 12/30, patient is now DNR/DNI. Palliative involved now as he does not want BiPap again. -Breathing continues to improve with diuresis, continue and follow closely -There is also the concern of whether or not he has any degree of aspiration, but after extensive discussions with patient and he would prefer to eat what he pleases and manage fallout if it occurs as best as we are able (3) Heart failure, systolic, due to idiopathic cardiomyopathy: Acute on chronic systolic CHF. Last echo in 2015 showing LVEF of 40%. Now with normal EF but with moderately reduced right sided RV function likely secondary to OHS and KEARA. - Continue metoprolol 50 mg po bid -Continue to diurese. Further Lasix today. (4) Supratherapeutic INR: No improved, although INR is floating in a slightly elevated range, I suspect likely from malnutrition. He is not showing any further bleeding, so we can hold on additional vitamin K, but should continue to follow. Right now because of the bleeding we need to hold off on truly having him anticoagulated. (5) Chronic indwelling Fitch catheter: Since 2015, has been bed-bound since that time. - Fitch was exchanged on 12/20, continue to follow (6) ADAM (acute kidney injury): Creatinine overall improved, continue Fitch drainage for now, follow on Lasix. (7) UTI (urinary tract infection) due to urinary indwelling Fitch catheter: With UTI on admission secondary to profound obstruction as above. Purulent urine noted to drain out after Fitch replaced by urology. Ur cx from 12/20 grew Stenotrophomonas. ID felt Stenotroph was a colonizer and to not treat. Two urine cultures grew Julia. - Per ID, treated with a full course of fluconazole by recommendations (8) Gross hematuria: With large amount of hematuria secondary to Fitch trauma in setting of INR>10 as above. Does not appear to have further hematuria or blood loss, but given the significant amount of hematuria, as well as abdominal findings (see below) we will hold on further anticoagulation at this time (9) Anemia: Acute blood loss anemia in setting of chronic disease anemia and Fe-de ficiency anemia. - Blood loss from gross hematuria and also with large hematoma in RUE from straining to pull himself upright/strain. Hematuria now resolved except some scant oozing at meatus. - Baseline Hgb is 9-10 - Received 7 units PRBCs so far this admission. (10) Atrial fibrillation and flutter: History of such and has pacer after aflutter ablation. Currently in NSR, paced rhythm, frequent PVCs and nonsustained VT runs. -Rate controlled, anticoagulation being held right now as above and below (11) KEARA (obstructive sleep apnea): - s/p trach placement 2016 - previous noncompliance with CPAP for KEARA (12) Obesity hypoventilation syndrome: - noted, with trach in place (13) H/O tracheostomy: - spaced in 2015 following intubation and mechanical ventilation for respiratory failure - noncompliance with CPAP for KEARA and the trach was placed as a result - Was changed during last admission on 12/02/18 -trach care as per RT (14) Abnormal CT of the abdomen: With a h/o numerous extraperitoneal fluid collections with some up to 5cm in size, ? if these areas were microabscesses vs small hematomas vs a combination of the two. Consider old hematoma from even previous admission as well as possible. New ones noted with INR being significantly supratherapeutic again. - Repeat CT 12/21 with decreased size of collections -Concern would be intra-abdominal bleeding versus small areas of infection (see bacteremia)continue antibiotics, continue to hold warfarin, follow clinically. (15) Renal mass, right: - Hx of right renal mass, unclear if ever diagnosed with cancer. Given his overall palliative mindset, defer to outpatient follow-up in this regard (16) Depression: - Continue sertraline 100 mg daily (17) Hypothyroidism: - Continue levothyroxine 100 mcg daily (18) Morbid obesity with BMI of 60.0-69.9, adult: - HH/DM diet -Certainly with his hypoventilation and need for a tracheostomy, his BMI does play significant role in his illnesses (19) Venous insufficiency: - Chronic, wound consult for ulcerations on the R calf - Lymphedema at baseline (20) Lymphedema: - Wound consulted - appreciate (21) Dyslipidemia: - Cont statin therapy (22) Severe protein-calorie malnutrition: Albumin severely low at 1.6 and persists. -Continue nutritional support, opening up his diet may be helpful (23) Asthma: - Hx of such, continue nebs QID as per home meds, no acute issues but is requiring 40% FiO2 via trach collar (24) Nonsustained ventricular tachycardia: Continue metoprolol, continue electrolyte replacement as needed (25) Hematoma: RUE, from straining, edema improving now. - Elevate arm for swelling, ice (26) DVT prophylaxis: No chemical ppx ordered with supratherapeutic INR, gross hematuria - SCDs not able to be placed due to lymphedema and chronic wounds Subjective Breathing feels better, still feels like there is a little in his chest though. Mostly he complains about wanting to be on to eat whatever he can. We have an extensive discussion of risks and benefits of this with him and his , and he would prefer to eat what he can and enjoy it, even if he has a degree of aspiration, knowing that we would simply be able to do our best to treat what ever "fall out" may come from an aspiration event. We discussed how this is very similar in the context of quality of life to Dr. Hawkins's discussions with him earlier in his hospital stay in regards to noninvasive ventilation etc. He and his expressed good understanding of this. They also note discharge planning towards SNF again once he is ready. No other acute complaints Review of Systems Review of Systems: All systems reviewed & are unremarkable except as noted in HPI & below Physical Exam Physical Exam: General he is awake and alert pleasant no distress. HEENT normocephalic atraumatic mucous membranes moist. Breathing is unlabored on his trach collar diffuse but mild scattered rhonchi no wheezing good effort no accessory muscle use. Neuro shows no focal deficits. Mental status appears to be intact Results & Data Vital Signs (Past 12 Hours) Vital Signs Temp Pulse Pulse Pulse Resp BP BP 01/02/19 15:30 88 24 01/02/19 15:00 82 26 H 01/02/19 14:57 82 26 H 155/82 H 01/02/19 14:56 98.1 F 84 23 155/82 H 01/02/19 14:30 81 29 H 01/02/19 14:00 83 24 01/02/19 13:30 75 17 01/02/19 13:00 79 23 01/02/19 12:30 80 24 01/02/19 12:00 86 19 01/02/19 11:30 83 23 01/02/19 11:04 85 18 189/82 H 01/02/19 11:03 97.5 F L 83 18 189/82 H 01/02/19 11:00 82 24 01/02/19 10:30 85 22 01/02/19 10:00 86 19 01/02/19 09:30 90 18 01/02/19 09:00 97 H 25 H 01/02/19 08:30 126 H 22 01/02/19 08:00 87 22 01/02/19 07:30 83 22 01/02/19 07:01 98.1 F 83 57 L 82 23 149/77 H 149/77 H 01/02/19 07:00 78 23 01/02/19 06:30 76 16 01/02/19 06:00 75 16 01/02/19 05:30 80 18 01/02/19 05:00 76 17 Pulse Ox 01/02/19 15:30 97 01/02/19 15:00 99 01/02/19 14:57 98 01/02/19 14:56 98 01/02/19 14:30 100 01/02/19 14:00 100 01/02/19 13:30 100 01/02/19 13:00 99 01/02/19 12:30 99 01/02/19 12:00 98 01/02/19 11:30 96 01/02/19 11:04 98 01/02/19 11:03 99 01/02/19 11:00 95 01/02/19 10:30 97 01/02/19 10:00 96 01/02/19 09:30 95 01/02/19 09:00 96 01/02/19 08:30 78 L 01/02/19 08:00 100 01/02/19 07:30 97 01/02/19 07:01 99 01/02/19 07:00 99 01/02/19 06:30 98 01/02/19 06:00 97 01/02/19 05:30 98 01/02/19 05:00 95 PG Care Time/CCT Total # of Minutes Spent Total Time Spent with Patient: Total time spent is greater than 50% in coordination of care (as documented) at patient's floor/unit and/or counseling patient: (1) Anemia Anemia type: other cause (2) Depression Depression Type: other depression Qualified Code(s): F32.89 - Other specified depressive episodes (3) Hypothyroidism Hypothyroidism type: acquired Qualified Code(s): E03.9 - Hypothyroidism, unspecified (4) Asthma Asthma severity: unspecified severity Asthma persistence: unspecified Asthma complication type: unspecified Qualified Code(s): J45.909 - Unspecified asthma, uncomplicated
[2019-01-03] MEDS: AMPICILLIN 2,000 MG in SODIUM CHLOR 0.9% AD-VAN 100 ML IV SCH ×6 (03:26→23:29)
[2019-01-03] MEDS: LEVOTHYROXINE SODIUM 100 MCG TABLET PO SCH (04:52)
[2019-01-03] MEDS: SULFAMETHOXAZOLE/TRIMETHOPRIM DS 800/160MG TAB PO SCH ×2 (08:34→20:27)
[2019-01-03] MEDS: guaiFENesin 600 MG TABCR PO SCH ×2 (08:34→20:27)
[2019-01-03] MEDS: SIMVASTATIN 10 MG TAB PO SCH (08:34)
[2019-01-03] MEDS: PANTOprazole 40 MG TAB PO SCH (08:34)
[2019-01-03] MEDS: FUROSEMIDE 80 MG TAB PO SCH ×2 (08:35→17:42)
[2019-01-03] MEDS: SERTRALINE HCL 50 MG TABLET PO SCH (08:35)
[2019-01-03] MEDS: NEPHROCAPS PO SCH (08:35)
[2019-01-03] MEDS: FERROUS SULFATE 325 MG TAB PO SCH (08:36)
[2019-01-03] MEDS: NYSTATIN POWDER 15GM BTL EXT SCH (08:37)
[2019-01-03] MEDS: CHLORHEXIDINE GLUCONATE 0.12% 480 ML MT SCH ×2 (08:39→20:25)
--- NOTE | 2019-01-03 12:53 | Palliative Care Progress Note ---
Date of Service January 03, 2019 Assessment & Plan (1) Goals of care, counseling/discussion: -63 year old male patient who [place] [facility] with extensive and complicated past medical history, most significantly morbid obesity, chronic respiratory failure with tracheostomy, presented to the hospital 12 days ago with gross hematuria. Patient had had many hospital admissions over the years. Was seen by palliative care back in 2016 to discuss goals of care and patient has maintained since then, until now, that he would want to be a full code, full treatment, etc. A complicating factor is that patient also refuses certain treatments and does not allow appropriate management of his medical conditions at times. At any rate, patient's hospital course has been complicated by ADAM and acute on chronic respiratory failure and heart failure. On 12/27, went into respiratory distress despite being given some IV Lasix. Was placed on bipap via his trach. Patient also being treated for UTI and sepsis. Discussion was had again about code status and GOC with patient's Tammy. She stated she just wants patient to be comfortable. patient's mental status did clear and he was able to participate in conversation over the weekend and agreed that he would NOT want to be placed back on Bipap or ventilator. He also wants to be DNR. Palliative care is reconsulted to discuss GOC. -Pt was seen in room 201 this morning when no family at bedside. -Patient oriented x4. -I spoke with patients , Tammy over the phone and confirmed her goals of him returning to [facility]. She had questions related to his bed hold which I discussed with Poly Hawkins from Case management and she discussed with her as well, that he can return to [facility]. -Discussed Hospice with Tammy over the phone and she is very interested in having Hospice services in place upon his return. Poly discussed agencies with Tammy and the patient will return to [facility] with [facility]. Case management to complete these arrangements. -Patient confirmed his DNR status and agreed again that he would not want to go back on bipap. -Given patient's many comorbidities including respiratory and heart failure, severe protein-calorie malnutrition with albumin 1.4, morbid obesity causing sedentary/bedbound lifestyle, recurrent infections and hospitalizations, prognosis is quite poor. -A POLST form was completed with the patients , indicating DNR/DNI, comfort measures only upon his return to [facility], trial abx, and no artificial nutrition or hydration. -Hopeful discharge over the next few days back to [facility]. -Palliative Care will follow peripherally at this time. Please contact us with any symptom management or decision making needs. -PPS 30%. (2) Acute hypercapnic respiratory failure: (3) Severe protein-calorie malnutrition: (4) Gross hematuria: Subjective Patient states he feels he is breathing better. Patient denies chest pain. I talked with patient about returning to [facility]. He stated that he is very concerned about end of life and his 's adjustment to this. He wants to be comfortable, providing reassurance. See A/P for further details Review of Systems Review of Systems: Const: + weakness, no fever ENMT: No dysphagia Resp: No SOB, + cough Cardio: No chest pain, no edema GI: No abdominal pain, N/V MS: No musculoskeletal pain Neuro: No confusion Psych: No anxiety, no depression Physical Exam Constitutional: + ill appearing, + morbidly obese and cooperative Eyes: PERRL, conjunctivae normal, anicteric sclerae Respiratory: normal respiratory effort Auscultation: + rhonchi Tracheostomy in place with humidified trach collar. Cardiovascular: RRR, no murmur, no edema Gastrointestinal (Abdomen): normal bowel sounds, soft, nontender, no hepatosplenomegaly Skin: no rashes, warm and dry Psychiatric: A+Ox3, euthymic affect Lymphatic: no cervical or axillary lymphadenopathy Results & Data Vital Signs (Past 12 Hours) Vital Signs Temp Pulse Pulse Resp BP Pulse Ox 01/03/19 11:01 36.6 C 83 25 H 158/70 H 92 01/03/19 07:11 36.5 C 85 18 171/75 H 98 01/03/19 03:53 97 01/03/19 03:04 36.4 C L 79 24 144/53 H 97 PG Care Time/CCT Total # of Minutes Spent Total Time Spent with Patient: Total time spent is greater than 50% in coordination of care (as documented) at patient's floor/unit and/or counseling patient: 35 Time Spent Midlevel total time spent 35 minute with > 50% of that time spent assessing the patient, discussing goals of care and completing a POLST form with the patients .
--- NOTE | 2019-01-03 15:14 | Hospitalist Progress Note ---
Date of Service January 03, 2019 Assessment & Plan (1) Bacteremia: Blood cultures from 12/27 when he was in distress is growing Enterococcus and Providencia. - Stopped ceftolozane/tazobactam on 12/30. - On Bactrim since 12/28 for the Providencia. Added ampicillin on 12/30 for the Enterococcus. End date abx: 01/12/19 for a 2 week course. - Follow up repeat blood cultures from 12/28 - As of 01/03, still negative. -Continue antibiotics, stable (2) Shortness of breath: -Has had significant ups and downs, but now appearing to be more stable in a chronic degree of respiratory failure. Continue to try to diurese to affect better breathing, with a goal of getting him back to [facility] on hospice. (3) Heart failure, systolic, due to idiopathic cardiomyopathy: Acute on chronic systolic CHF. Last echo in 2015 showing LVEF of 40%. Now with normal EF but with moderately reduced right sided RV function likely secondary to OHS and KEARA. - Continue metoprolol 50 mg po bid -Continue to diurese, with a goal of weaning oxygen so that he can safely return to [facility] on hospice. (4) Supratherapeutic INR: No improved, although INR is floating in a slightly elevated range, I suspect likely from malnutrition. He is not showing any further bleeding, so we can hold on additional vitamin K, but should continue to follow. Hold anticoagulation indefinitely, especially in light of his overall decline (5) Chronic indwelling Fitch catheter: Since 2015, has been bed-bound since that time. - Fitch was exchanged on 12/20, continue to follow (6) ADAM (acute kidney injury): Creatinine overall improved, continue Fitch drainage for now. (7) UTI (urinary tract infection) due to urinary indwelling Fitch catheter: With UTI on admission secondary to profound obstruction as above. Purulent urine noted to drain out after Fitch replaced by urology. Ur cx from 12/20 grew Stenotrophomonas. ID felt Stenotroph was a colonizer and to not treat. Two urine cultures grew Julia. - Per ID, treated with a full course of fluconazole by recommendations (8) Gross hematuria: With large amount of hematuria secondary to Fitch trauma in setting of INR>10 as above. Does not appear to have further hematuria or blood loss, but given the significant amount of hematuria, as well as abdominal findings (see below) we will hold on further anticoagulation at this time, INR has crept up, but no further bleeding noted right now. (9) Anemia: Acute blood loss anemia in setting of chronic disease anemia and Fe- deficiency anemia. - Blood loss from gross hematuria and also with large hematoma in RUE from straining to pull himself upright/strain. Hematuria now resolved. - Baseline Hgb is 9-10 - Received 7 units PRBCs so far this admission. (10) Atrial fibrillation and flutter: History of such and has pacer after aflutter ablation. Currently in NSR, paced rhythm, frequent PVCs and nonsustained VT runs. -Rate controlled, anticoagulation being held right now as above and below, and I discussed with the different strategies to approach when to turn off his pacemaker. (11) KEARA (obstructive sleep apnea): - s/p trach placement 2015 - previous noncompliance with CPAP for KEARA (12) Obesity hypoventilation syndrome: - noted, with trach in place (13) H/O tracheostomy: - spaced in 2015 following intubation and mechanical ventilation for respiratory failure - noncompliance with CPAP for KEARA and the trach was placed as a result - Was changed during last admission on 12/02/18 -trach care as per RT (14) Abnormal CT of the abdomen: With a h/o numerous extraperitoneal fluid collections with some up to 5cm in size, ? if these areas were microabscesses vs small hematomas vs a combination of the two. Consider old hematoma from even previous admission as well as possible. New ones noted with INR being significantly supratherapeutic again. - Repeat CT 12/21 with decreased size of collections -Concern would be intra-abdominal bleeding versus small areas of infection (see bacteremia)continue antibiotics, continue to hold warfarin, follow clinically. With his hospice goal, discerning the exact etiology of this (bleeding versus infectious) seems to be significantly less important than making sure he is comfortable (15) Renal mass, right: - Hx of right renal mass, unclear if ever diagnosed with cancer. With hospice goals, would hold on any further work-up of this (16) Depression: - Continue sertraline 100 mg daily (17) Hypothyroidism: - Continue levothyroxine 100 mcg daily (18) Morbid obesity with BMI of 60.0-69.9, adult: - HH/DM diet -Certainly with his hypoventilation and need for a tracheostomy, his BMI does play significant role in his illnesses (19) Venous insufficiency: - Chronic, wound consult for ulcerations on the R calf - Lymphedema at baseline (20) Lymphedema: - Wound consulted - appreciate (21) Dyslipidemia: - Cont statin therapy (22) Severe protein-calorie malnutrition: Noted. Diet as tolerated. (23) Asthma: - Hx of such, continue nebs QID as per home meds, no acute issues, and breathing seems to be improving with management of pulmonary edema (24) Nonsustained ventricular tachycardia: Continue metoprolol (25) Hematoma: RUE, from straining, edema improving now. - Elevate arm for swelling, ice (26) DVT prophylaxis: No chemical ppx ordered with supratherapeutic INR, gross hematuria - SCDs not able to be placed due to lymphedema and chronic wounds Subjective Plan will be for [facility] with hospice. His breathing is feeling okay today, not good, but on directed questioning definitely not worse than yesterday. Questionably better. He is happy with the plan. Unfortunately with opening up his diet last night they still brought him chicken which was something he was averse to having more of. But overall is happy with his care. asks in regards to his pacemaker as he approaches end of life, we discussed how this can be turned off as the need approaches. Review of Systems Review of Systems: All systems reviewed & are unremarkable except as noted in HPI & below Physical Exam Physical Exam: General he is awake and alert pleasant no distress. HEENT normal cephalic atraumatic mucous membranes moist. Lungs show faint scattered rhonchi, he is breathing with his trach collar, no accessory muscle use no rales no wheezes. Extremities show diffuse chronic edema with stasis changes. No focal neuro deficits. Results & Data Vital Signs (Past 12 Hours) Vital Signs Temp Pulse Resp BP Pulse Ox 01/03/19 15:02 98.4 F 80 23 166/71 H 95 01/03/19 11:01 97.9 F 83 25 H 158/70 H 92 01/03/19 07:11 97.7 F 85 18 171/75 H 98 01/03/19 03:53 97 PG Care Time/CCT Total # of Minutes Spent Total Time Spent with Patient: Total time spent is greater than 50% in coordination of care (as documented) at patient's floor/unit and/or counseling patient: (1) Anemia Anemia type: other cause (2) Depression Depression Type: other depression Qualified Code(s): F32.89 - Other specified depressive episodes (3) Hypothyroidism Hypothyroidism type: acquired Qualified Code(s): E03.9 - Hypothyroidism, unspecified (4) Asthma Asthma severity: unspecified severity Asthma persistence: unspecified Asthma complication type: unspecified Qualified Code(s): J45.909 - Unspecified asthma, uncomplicated
[2019-01-04] MEDS: AMPICILLIN 2,000 MG in SODIUM CHLOR 0.9% AD-VAN 100 ML IV SCH ×6 (03:21→23:29)
[2019-01-04] MEDS: LEVOTHYROXINE SODIUM 100 MCG TABLET PO SCH (06:08)
[2019-01-04] MEDS: PANTOprazole 40 MG TAB PO SCH (09:20)
[2019-01-04] MEDS: SIMVASTATIN 10 MG TAB PO SCH (09:20)
[2019-01-04] MEDS: guaiFENesin 600 MG TABCR PO SCH ×2 (09:20→19:57)
[2019-01-04] MEDS: FUROSEMIDE 80 MG TAB PO SCH ×2 (09:20→17:09)
[2019-01-04] MEDS: SERTRALINE HCL 50 MG TABLET PO SCH (09:21)
[2019-01-04] MEDS: SULFAMETHOXAZOLE/TRIMETHOPRIM DS 800/160MG TAB PO SCH ×2 (09:21→19:57)
[2019-01-04] MEDS: NEPHROCAPS PO SCH (09:22)
[2019-01-04] MEDS: FERROUS SULFATE 325 MG TAB PO SCH (09:24)
[2019-01-04] MEDS: CHLORHEXIDINE GLUCONATE 0.12% 480 ML MT SCH ×2 (11:58→19:56)
[2019-01-04] MEDS: NYSTATIN POWDER 15GM BTL EXT SCH (11:59)
--- NOTE | 2019-01-04 16:34 | Hospitalist Progress Note ---
Date of Service January 04, 2019 Assessment & Plan (1) Bacteremia: Blood cultures from 12/27 when he was in distress is growing Enterococcus and Providencia. - Stopped ceftolozane/tazobactam on 12/30. - On Bactrim since 12/28 for the Providencia. Added ampicillin on 12/30 for the Enterococcus. End date abx: 01/12/19 for a 2 week course. - Follow up repeat blood cultures from 12/28 showing no growth -Continue antibiotics to complete his course as above (2) Shortness of breath: -Has had significant ups and downs, but now appearing to be more stable in a chronic degree of respiratory failure. He is been surprisingly comfortable last several days. Anticipate back to [facility] on hospice in the near future (3) Heart failure, systolic, due to idiopathic cardiomyopathy: Acute on chronic systolic CHF. Last echo in 2015 showing LVEF of 40%. Now with normal EF but with moderately reduced right sided RV function likely secondary to OHS and KEARA. - Continue metoprolol 50 mg po bid -Continue to diurese, with a goal of weaning oxygen so that he can safely return to [facility] on hospice. Thus far on 80 mg twice daily Lasix he seems to be doing okay. (4) Supratherapeutic INR: No improved, although INR is floating in a slightly elevated range, I suspect likely from malnutrition. He is showing a little bit of blood-tinged urine, so we will give a little additional vitamin K, but fortunately is not showing any active hemorrhaging. Continue to follow (5) Chronic indwelling Fitch catheter: Since 2015, has been bed-bound since that time. - Fitch was exchanged on 12/20, continue to follow (6) ADAM (acute kidney injury): Creatinine overall improved, continue Fitch drainage for now. (7) UTI (urinary tract infection) due to urinary indwelling Fitch catheter: With UTI on admission secondary to profound obstruction as above. Purulent urine noted to drain out after Fitch replaced by urology. Ur cx from 12/20 grew Stenotrophomonas. ID felt Stenotroph was a colonizer and to not treat. Two urine cultures grew Julia. - Per ID, treated with a full course of fluconazole by recommendations (8) Gross hematuria: Improved, now starting to worsen somewhat again, will give additional vitamin K. (9) Anemia: Acute blood loss anemia in setting of chronic disease anemia and Fe- deficiency anemia. - Blood loss from gross hematuria and also with large hematoma in RUE from straining to pull himself upright/strain. Hematuria now resolved. - Baseline Hgb is 9-10 - Received 7 units PRBCs so far this admission. -He is asymptomatic, and is much more of a comfort goal, so the threshold for transfusion would be much more in line with symptoms than a hemoglobin value. (10) Atrial fibrillation and flutter: History of such and has pacer after aflutter ablation. Currently in NSR, paced rhythm, frequent PVCs and nonsustained VT runs. -Rate controlled, anticoagulation being held right now, and on 01/03 hospitalist team discussed with the different strategies to approach when to turn off his pacemaker. (11) KEARA (obstructive sleep apnea): - s/p trach placement 2015 - previous noncompliance with CPAP for KEARA (12) Obesity hypoventilation syndrome: - noted, with trach in place (13) H/O tracheostomy: - spaced in 2015 following intubation and mechanical ventilation for respiratory failure - noncompliance with CPAP for KEARA and the trach was placed as a result - Was changed during last admission on 12/02/18 -trach care as per RT (14) Abnormal CT of the abdomen: With a h/o numerous extraperitoneal fluid collections with some up to 5cm in size, ? if these areas were microabscesses vs small hematomas vs a combination of the two. Consider old hematoma from even previous admission as well as possible. New ones noted with INR being significantly supratherapeutic again. - Repeat CT 12/21 with decreased size of collections -Concern would be intra-abdominal bleeding versus small areas of infection (see bacteremia)continue antibiotics, continue to hold warfarin, follow clinically. With his hospice goal, discerning the exact etiology of this (bleeding versus infectious) seems to be significantly less important than making sure he is comfortableshe has not complained of any abdominal discomfort (15) Renal mass, right: - Hx of right renal mass, unclear if ever diagnosed with cancer. With hospice goals, would hold on any further work-up of this (16) Depression: - Continue sertraline 100 mg daily (17) Hypothyroidism: - Continue levothyroxine 100 mcg daily (18) Morbid obesity with BMI of 60.0-69.9, adult: - HH/DM diet -Certainly with his hypoventilation and need for a tracheostomy, his BMI does play significant role in his illnesses (19) Venous insufficiency: - Chronic, wound consult for ulcerations on the R calf - Lymphedema at baseline (20) Lymphedema: - Wound consulted - appreciate (21) Dyslipidemia: - Cont statin therapy (22) Severe protein-calorie malnutrition: Noted. Diet as tolerated. (23) Asthma: - Hx of such, continue nebs QID as per home meds, no acute issues, and breathing seems to be improving with management of pulmonary edema (24) Nonsustained ventricular tachycardia: Continue metoprolol, pacer discussions as above (25) Hematoma: RUE, from straining, edema improving now. - Elevate arm for swelling, ice (26) DVT prophylaxis: No chemical ppx ordered with supratherapeutic INR, gross hematuria - SCDs not able to be placed due to lymphedema and chronic wounds (27) Discharge planning issues: /case management/hospice all working towards a return to [facility] with hospice care in the near future. Anticipate return once his needs will be able to be met in that environment. Subjective Generally seems to be feeling better. Breathing better. No other new complaints. Case management/hospice/[facility] working on disposition. Nursing today working on trying to titrate down his oxygen requirements to make disposition easier for him. He offers no other new complaints. Review of Systems Review of Systems: All systems reviewed & are unremarkable except as noted in HPI & below Physical Exam Physical Exam: In general he is awake and alert pleasant no distress. HEENT normocephalic atraumatic mucous membranes moist. Trach in place without any local skin breakdown. Cardio somewhat distant. Lungs with scattered amount of coarse rhonchi bilaterally no notable rales no wheezes no accessory muscle use good effort. Skin shows chronic venous stasis changes, legs show chronic edema. Results & Data Vital Signs (Past 12 Hours) Vital Signs Temp Pulse Pulse Pulse Resp BP Pulse Ox 01/04/19 15:44 93 H 01/04/19 15:22 98.4 F 83 21 156/76 H 93 01/04/19 11:42 98.6 F 83 22 144/76 H 100 01/04/19 08:00 82 01/04/19 07:35 98.2 F 83 20 166/72 H 93 01/04/19 05:05 97.7 F 77 20 162/82 H 97 PG Care Time/CCT Total # of Minutes Spent Total Time Spent with Patient: Total time spent is greater than 50% in coordination of care (as documented) at patient's floor/unit and/or counseling patient: (1) Anemia Anemia type: other cause (2) Depression Depression Type: other depression Qualified Code(s): F32.89 - Other specified depressive episodes (3) Hypothyroidism Hypothyroidism type: acquired Qualified Code(s): E03.9 - Hypothyroidism, unspecified (4) Asthma Asthma severity: unspecified severity Asthma persistence: unspecified Asthma complication type: unspecified Qualified Code(s): J45.909 - Unspecified asthma, uncomplicated
[2019-01-04] MEDS ORDERED: PHYTONADIONE 5 MG TAB PO ONE (17:00)
[2019-01-05] MEDS: AMPICILLIN 2,000 MG in SODIUM CHLOR 0.9% AD-VAN 100 ML IV SCH ×6 (03:45→23:37)
[2019-01-05] MEDS: LEVOTHYROXINE SODIUM 100 MCG TABLET PO SCH (06:05)
[2019-01-05] MEDS: CHLORHEXIDINE GLUCONATE 0.12% 480 ML MT SCH ×2 (08:16→20:20)
[2019-01-05] MEDS: NYSTATIN POWDER 15GM BTL EXT SCH (08:16)
[2019-01-05] MEDS: FERROUS SULFATE 325 MG TAB PO SCH (08:17)
[2019-01-05] MEDS: NEPHROCAPS PO SCH (08:17)
[2019-01-05] MEDS: SULFAMETHOXAZOLE/TRIMETHOPRIM DS 800/160MG TAB PO SCH ×2 (08:17→20:21)
[2019-01-05] MEDS: PANTOprazole 40 MG TAB PO SCH (08:17)
[2019-01-05] MEDS: SERTRALINE HCL 50 MG TABLET PO SCH (08:18)
[2019-01-05] MEDS: SIMVASTATIN 10 MG TAB PO SCH (08:18)
[2019-01-05] MEDS: FUROSEMIDE 80 MG TAB PO SCH ×2 (08:18→17:18)
[2019-01-05] MEDS: guaiFENesin 600 MG TABCR PO SCH ×2 (08:18→20:20)
--- NOTE | 2019-01-05 10:25 | Hospitalist Progress Note ---
Date of Service January 05, 2019 Assessment & Plan (1) Bacteremia: Blood cultures from 12/27 when he was in distress is growing Enterococcus and Providencia. - Stopped ceftolozane/tazobactam on 12/30. - On Bactrim since 12/28 for the Providencia. Added ampicillin on 12/30 for the Enterococcus. End date abx: 01/12/19 for a 2 week course. - Follow up repeat blood cultures from 12/28: no growth, final -Continue antibiotics to complete his course as above (2) Shortness of breath: -Has had significant ups and downs, but now appearing to be more stable in a chronic degree of respiratory failure. breathing is comfortable for now plan for Hospice on Tuesday at [facility] (3) Heart failure, systolic, due to idiopathic cardiomyopathy: Acute on chronic systolic CHF. Last echo in 2015 showing LVEF of 40%. Now with normal EF but with moderately reduced right sided RV function likely secondary to OHS and KEARA. - Continue metoprolol 50 mg po bid -Continue to diurese, with a goal of weaning oxygen so that he can safely return to [facility] on hospice. continue on 80 mg twice daily Lasix he seems to be doing okay. (4) Supratherapeutic INR: likely due to malnutrition will not monitor given hospice status (5) Chronic indwelling Fitch catheter: Since 2015, has been bed-bound since that time. - Fitch was exchanged on 12/20, continue to follow (6) ADAM (acute kidney injury): Creatinine overall improved, continue Fitch drainage for now. (7) UTI (urinary tract infection) due to urinary indwelling Fitch catheter: With UTI on admission secondary to profound obstruction as above. Purulent urine noted to drain out after Fitch replaced by urology. Ur cx from 12/20 grew Stenotrophomonas. ID felt Stenotroph was a colonizer and to not treat. Two urine cultures grew Julia. - Per ID, treated with a full course of fluconazole by recommendations (8) Gross hematuria: Improved, now starting to worsen somewhat again, will give additional vitamin K. (9) Anemia: Acute blood loss anemia in setting of chronic disease anemia and Fe- deficiency anemia. - Blood loss from gross hematuria and also with large hematoma in RUE from straining to pull himself upright/strain. Hematuria now resolved. - Baseline Hgb is 9-10 - Received 7 units PRBCs so far this admission. -He is asymptomatic, and is much more of a comfort goal, so the threshold for transfusion would be much more in line with symptoms than a hemoglobin value. no labs today (10) Atrial fibrillation and flutter: History of such and has pacer after aflutter ablation. Currently in NSR, paced rhythm, frequent PVCs and nonsustained VT runs. -Rate controlled, anticoagulation being held right now, and on 01/03 hospitalist team discussed with the different strategies to approach when to turn off his pacemaker. (11) KEARA (obstructive sleep apnea): - s/p trach placement 2016 - previous noncompliance with CPAP for KEARA (12) Obesity hypoventilation syndrome: - noted, with trach in place (13) H/O tracheostomy: - placed in 2015 following intubation and mechanical ventilation for respiratory failure - noncompliance with CPAP for KEARA and the trach was placed as a result - Was changed during last admission on 12/02/18 -trach care as per RT (14) Abnormal CT of the abdomen: With a h/o numerous extraperitoneal fluid collections with some up to 5cm in size, ? if these areas were microabscesses vs small hematomas vs a combination of the two. Consider old hematoma from even previous admission as well as possible. New ones noted with INR being significantly supratherapeutic again. - Repeat CT 12/21 with decreased size of collections -Concern would be intra-abdominal bleeding versus small areas of infection (see bacteremia)continue antibiotics, continue to hold warfarin, follow clinically. With his hospice goal, discerning the exact etiology of this (bleeding versus infectious) seems to be significantly less important than making sure he is comfortable no abdominal pain today (15) Renal mass, right: - Hx of right renal mass, unclear if ever diagnosed with cancer. With hospice goals, would hold on any further work-up of this (16) Depression: - Continue sertraline 100 mg daily (17) Hypothyroidism: - Continue levothyroxine 100 mcg daily (18) Morbid obesity with BMI of 60.0-69.9, adult: - HH/DM diet -Certainly with his hypoventilation and need for a tracheostomy, his BMI does play significant role in his illnesses (19) Venous insufficiency: - Chronic, wound consult for ulcerations on the R calf - Lymphedema at baseline (20) Lymphedema: - Wound consulted - appreciate (21) Dyslipidemia: - Cont statin therapy (22) Severe protein-calorie malnutrition: Noted. Diet as tolerated. (23) Asthma: - Hx of such, continue nebs QID as per home meds, no acute issues, and breathing seems to be improving with management of pulmonary edema (24) Nonsustained ventricular tachycardia: Continue metoprolol, pacer discussions as above (25) Hematoma: RUE, from straining, edema improving now. - Elevate arm for swelling, ice (26) DVT prophylaxis: No chemical ppx ordered with supratherapeutic INR, gross hematuria - SCDs not able to be placed due to lymphedema and chronic wounds (27) Discharge planning issues: /case management/hospice all working towards a return to [facility] with hospice care in the near future. Anticipate return once his needs will be able to be met in that environment. plan to go to [facility] on Tuesday Subjective no major changes over night breathing is stable/baseline vitals are stable, no fever no labs today reviewed chart d/w CM, plan for hospice at [facility] on Tuesday Review of Systems Review of Systems: All systems reviewed & are unremarkable except as noted in HPI & below Constitutional: + fatigue and + weakness; no fever Respiratory: + dyspnea on exertion; no cough and no dyspnea Cardiovascular: + edema; no chest pain and no syncope Gastrointestinal: no abdominal pain, no nausea, no vomiting, no constipation and no diarrhea/loose stools Physical Exam Constitutional: WD/WN, vitals as above Eyes: PERRL, conjunctivae normal, anicteric sclerae ENMT: external ear and nose normal, oropharynx normal Neck: trachea midline, no thyromegaly (tracheostomy in place) Respiratory: normal respiratory effort, lungs clear to auscultation Auscultation: + diminished lung sounds (bases) Cardiovascular: Rate/Rhythm: regular rate and regular rhythm Heart Sounds: normal S1 and normal S2; no murmur Vessels: no JVD Extremities: normal capillary refill and + edema (pitting to knees) Gastrointestinal (Abdomen): normal bowel sounds, soft, nontender, no hepatosplenomegaly Musculoskeletal: Head/Neck/Chest: normocephalic and head atraumatic Ext remities: + abnormal strength (generalized weakness, cannot transfer or ambulate) Skin: no rashes, warm and dry Neurologic: patellar DTR's 2+ bilat, sensation intact and PERRL, EOMI, accommodation nl, no face palsy, no dysarthria Psychiatric: A+Ox3, euthymic affect Lymphatic: no cervical or axillary lymphadenopathy Results & Data Vital Signs (Past 12 Hours) Vital Signs Temp Pulse Pulse Resp BP Pulse Ox Pulse Ox 01/05/19 07:04 36.6 C 78 27 H 172/68 H 96 01/05/19 03:18 36.9 C 85 21 143/63 H 93 01/04/19 23:45 77 20 95 01/04/19 23:00 36.7 C 77 24 147/61 H 95 Medications Administered Current Inpatient Medications Acetaminophen (Tylenol) 650 mg PO Q4H PRN PRN Reason: Moderate Pain Stop: 01/19/19 14:27 Last Admin: 12/22/18 21:27 Dose: 650 mg Documented by: Albuterol (Duoneb) 3 ml NEB Q4 PRN PRN Reason: Shortness Of Breath Or Wheezing Stop: 01/24/19 15:59 Last Admin: 12/27/18 14:15 Dose: 3 ml Documented by: Calamine/Phenol (Calmoseptine) 1 appln EXT Q6 PRN PRN Reason: Wound Care Stop: 01/19/19 14:27 Last Admin: 12/21/18 05:21 Dose: 1 appln Documented by: Chlorhexidine Gluconate (Peridex) 15 ml MT BID [facility] Stop: 01/19/19 20:59 Last Admin: 01/05/19 08:16 Dose: 15 ml Documented by: Ferrous Sulfate (Feosol) 325 mg PO QAM [facility] Stop: 01/20/19 08:59 Last Admin: 01/05/19 08:17 Dose: 325 mg Documented by: Furosemide (Lasix) 80 mg PO BID17 [facility] Stop: 02/01/19 16:59 Last Admin: 01/05/19 08:18 Dose: 80 mg Documented by: Guaifenesin (Mucinex) 1,200 mg PO BID [facility] Stop: 01/19/19 20:59 Last Admin: 01/05/19 08:18 Dose: 1,200 mg Documented by: Ampicillin Sodium 2,000 mg/ (Sodium Chloride) 100 mls @ 200 mls/hr IV Q4H [facility]; Protocol Stop: 01/13/19 14:59 Last Infusion: 01/05/19 08:47 Dose: Infused Documented by: Lorazepam (Ativan) 1 mg in 2 mls @ 2 mls/min IV Q4H PRN PRN Reason: Anxiety Stop: 01/29/19 17:09 Levothyroxine Sodium (Synthroid) 100 mcg PO DAILYBB [facility] Stop: 01/20/19 06:29 Last Admin: 01/05/19 06:05 Dose: 100 mcg Documented by: Magnesium Hydroxide (Milk Of Magnesia) 30 ml PO HS PRN PRN Reason: Constipation Stop: 01/19/19 14:27 Morphine Sulfate (Morphine Sulfate) 4 mg IV Q3H PRN PRN Reason: Shortness of breath or pain Stop: 01/13/19 17:02 Nystatin (Mycostatin) 1 appln EXT DAILY [facility] Stop: 01/20/19 08:59 Last Admin: 01/05/19 08:16 Dose: 1 appln Documented by: Ondansetron HCl (Zofran) 4 mg IV Q4H PRN PRN Reason: Nausea And Vomiting Stop: 01/19/19 14:27 Pantoprazole Sodium (Protonix) 40 mg PO QAM [facility] Stop: 01/20/19 08:59 Last Admin: 01/05/19 08:17 Dose: 40 mg Documented by: Sertraline HCl (Zoloft) 100 mg PO QAM [facility] Stop: 01/20/19 08:59 Last Admin: 01/05/19 08:18 Dose: 100 mg Documented by: Simvastatin (Zocor) 10 mg PO QAM [facility] Stop: 01/20/19 08:59 Last Admin: 01/05/19 08:18 Dose: 10 mg Documented by: Trimethoprim/Sulfamethoxazole (Septra Ds 800/160mg Tab) 1 tab PO Q12 [facility] Stop: 01/12/19 20:59 Last Admin: 01/05/19 08:17 Dose: 1 tab Documented by: Vitamin B Complex/Folic Acid (Nephrocaps) 1 cap PO QAM [facility] Stop: 01/21/19 08:59 Last Admin: 01/05/19 08:17 Dose: 1 cap Documented by: PG Care Time/CCT Total # of Minutes Spent Total Time Spent with Patient: Total time spent is greater than 50% in coordination of care (as documented) at patient's floor/unit and/or counseling patient: (1) Anemia Anemia type: other cause (2) Depression Depression Type: other depression Qualified Code(s): F32.89 - Other specified depressive episodes (3) Hypothyroidism Hypothyroidism type: acquired Qualified Code(s): E03.9 - Hypothyroidism, unspecified (4) Asthma Asthma severity: unspecified severity Asthma persistence: unspecified Asthma complication type: unspecified Qualified Code(s): J45.909 - Unspecified asthma, uncomplicated
[2019-01-06] MEDS: ACETAMINOPHEN 325 MG TAB PO PRN (03:07)
[2019-01-06] MEDS: AMPICILLIN 2,000 MG in SODIUM CHLOR 0.9% AD-VAN 100 ML IV SCH ×6 (03:07→21:40)
[2019-01-06] MEDS: LEVOTHYROXINE SODIUM 100 MCG TABLET PO SCH (06:00)
[2019-01-06] MEDS: NYSTATIN POWDER 15GM BTL EXT SCH (08:33)
[2019-01-06] MEDS: PANTOprazole 40 MG TAB PO SCH (08:36)
[2019-01-06] MEDS: SIMVASTATIN 10 MG TAB PO SCH (08:36)
[2019-01-06] MEDS: guaiFENesin 600 MG TABCR PO SCH ×2 (08:36→21:40)
[2019-01-06] MEDS: FUROSEMIDE 80 MG TAB PO SCH ×2 (08:36→17:13)
[2019-01-06] MEDS: SULFAMETHOXAZOLE/TRIMETHOPRIM DS 800/160MG TAB PO SCH ×2 (08:37→21:39)
[2019-01-06] MEDS: FERROUS SULFATE 325 MG TAB PO SCH (08:37)
[2019-01-06] MEDS: NEPHROCAPS PO SCH (08:37)
[2019-01-06] MEDS: SERTRALINE HCL 50 MG TABLET PO SCH (08:38)
[2019-01-06] MEDS: CHLORHEXIDINE GLUCONATE 0.12% 480 ML MT SCH ×2 (08:42→21:40)
[2019-01-06 17:47] LABS: Calcium 8.6 mg/dl (8.5-10.1); Creatinine Clr Calc Pharmacy 145.3 ml/min; Est GFR (African American) 106.2; Est GFR (Non-African American) 91.6; Potassium 3.7 mmol/L (3.5-5.1)
--- NOTE | 2019-01-06 22:41 | Hospitalist Progress Note ---
Date of Service January 06, 2019 Assessment & Plan (1) Bacteremia: Blood cultures from 12/27 when he was in distress is growing Enterococcus and Providencia. - Stopped ceftolozane/tazobactam on 12/30. - On Bactrim since 12/28 for the Providencia. Added ampicillin on 12/30 for the Enterococcus. End date abx: 01/12/19 for a 2 week course. - Follow up repeat blood cultures from 12/28: no growth, final -Continue antibiotics to complete his course as above (2) Shortness of breath: -Has had significant ups and downs, but now appearing to be more stable in a chronic degree of respiratory failure. breathing is comfortable for now plan for Hospice on Tuesday at [facility] (3) Heart failure, systolic, due to idiopathic cardiomyopathy: Acute on chronic systolic CHF. Last echo in 2015 showing LVEF of 40%. Now with normal EF but with moderately reduced right sided RV function likely secondary to OHS and KEARA. - Continue metoprolol 50 mg po bid -Continue to diurese, with a goal of weaning oxygen so that he can safely return to [facility] on hospice. continue on 80 mg twice daily Lasix he seems to be doing okay. (4) Supratherapeutic INR: likely due to malnutrition will not monitor given hospice status (5) Chronic indwelling Fitch catheter: Since 2015, has been bed-bound since that time. - Fitch was exchanged on 12/20, continue to follow (6) ADAM (acute kidney injury): Creatinine overall improved, continue Fitch drainage for now. (7) UTI (urinary tract infection) due to urinary indwelling Fitch catheter: With UTI on admission secondary to profound obstruction as above. Purulent urine noted to drain out after Fitch replaced by urology. Ur cx from 12/20 grew Stenotrophomonas. ID felt Stenotroph was a colonizer and to not treat. Two urine cultures grew Julia. - Per ID, treated with a full course of fluconazole by recommendations (8) Gross hematuria: Improved, now starting to worsen somewhat again, will give additional vitamin K. (9) Anemia: Acute blood loss anemia in setting of chronic disease anemia and Fe- deficiency anemia. - Blood loss from gross hematuria and also with large hematoma in RUE from straining to pull himself upright/strain. Hematuria now resolved. - Baseline Hgb is 9-10 - Received 7 units PRBCs so far this admission. -He is asymptomatic, and is much more of a comfort goal, so the threshold for transfusion would be much more in line with symptoms than a hemoglobin value. no labs today (10) Atrial fibrillation and flutter: History of such and has pacer after aflutter ablation. Currently in NSR, paced rhythm, frequent PVCs and nonsustained VT runs. -Rate controlled, anticoagulation being held right now, and on 01/03 hospitalist team discussed with the different strategies to approach when to turn off his pacemaker. (11) KEARA (obstructive sleep apnea): - s/p trach placement 2016 - previous noncompliance with CPAP for KEARA (12) Obesity hypoventilation syndrome: - noted, with trach in place (13) H/O tracheostomy: - placed in 2015 following intubation and mechanical ventilation for respiratory failure - noncompliance with CPAP for KEARA and the trach was placed as a result - Was changed during last admission on 12/02/18 -trach care as per RT (14) Abnormal CT of the abdomen: With a h/o numerous extraperitoneal fluid collections with some up to 5cm in size, ? if these areas were microabscesses vs small hematomas vs a combination of the two. Consider old hematoma from even previous admission as well as possible. New ones noted with INR being significantly supratherapeutic again. - Repeat CT 12/21 with decreased size of collections -Concern would be intra-abdominal bleeding versus small areas of infection (see bacteremia)continue antibiotics, continue to hold warfarin, follow clinically. With his hospice goal, discerning the exact etiology of this (bleeding versus infectious) seems to be significantly less important than making sure he is comfortable no abdominal pain today (15) Renal mass, right: - Hx of right renal mass, unclear if ever diagnosed with cancer. With hospice goals, would hold on any further work-up of this (16) Depression: - Continue sertraline 100 mg daily (17) Hypothyroidism: - Continue levothyroxine 100 mcg daily (18) Morbid obesity with BMI of 60.0-69.9, adult: - HH/DM diet -Certainly with his hypoventilation and need for a tracheostomy, his BMI does play significant role in his illnesses (19) Venous insufficiency: - Chronic, wound consult for ulcerations on the R calf - Lymphedema at baseline (20) Lymphedema: - Wound consulted - appreciate (21) Dyslipidemia: - Cont statin therapy (22) Severe protein-calorie malnutrition: Noted. Diet as tolerated. (23) Asthma: - Hx of such, continue nebs QID as per home meds, no acute issues, and breathing seems to be improving with management of pulmonary edema (24) Nonsustained ventricular tachycardia: Continue metoprolol, pacer discussions as above (25) Hematoma: RUE, from straining, edema improving now. - Elevate arm for swelling, ice (26) DVT prophylaxis: No chemical ppx ordered with supratherapeutic INR, gross hematuria - SCDs not able to be placed due to lymphedema and chronic wounds No significanrt change in plan on 01/06 (27) Discharge planning issues: /case management/hospice all working towards a return to [facility] with hospice care in the near future. Anticipate return once his needs will be able to be met in that environment. plan to go to [facility] on Tuesday Subjective No events overnight. Patient smiles. Not showing any signs of distress. He shakes his head when asked if he has any new problems. reviewed chart Appears plan is for hospice at [facility] on Tuesday Review of Systems Review of Systems: Other Patient is unable to verbalize complaints. Has trach Physical Exam Physical Exam: Constitutional: WD/WN, vitals as above Eyes: PERRL, conjunctivae normal, anicteric sclerae ENMT: external ear and nose normal, oropharynx normal Neck: trachea midline, no thyromegaly (tracheostomy in place) Respiratory: normal respiratory effort, lungs clear to auscultation Auscultation: + diminished lung sounds (bases) Cardiovascular: Rate/Rhythm: regular rate and regular rhythm Heart Sounds: normal S1 and normal S2; no murmur Vessels: no JVD Extremities: normal capillary refill and + edema (pitting to knees) Gastrointestinal (Abdomen): normal bowel sounds, soft, nontender, no hepatosplenomegaly Musculoskeletal: Head/Neck/Chest: normocephalic and head atraumatic Extre mities: + abnormal strength (generalized weakness, cannot transfer or ambulate) Skin: no rashes, warm and dry Neurologic: patellar DTR's 2+ bilat, sensation intact and PERRL, EOMI, accommodation nl, no face palsy, no dysarthria Psychiatric: A+Ox3, euthymic affect Lymphatic: no cervical or axillary lymphadenopathy Results & Data Vital Signs (Past 12 Hours) Vital Signs Temp Pulse Pulse Resp BP BP Pulse Ox 01/06/19 19:40 36.6 C 83 22 211/104 H 93 01/06/19 16:00 93 01/06/19 15:40 37.0 C 86 20 173/89 H 93 01/06/19 11:00 37.0 C 88 25 H 142/74 H 99 PG Care Time/CCT Total # of Minutes Spent Total Time Spent with Patient: Total time spent is greater than 50% in coordination of care (as documented) at patient's floor/unit and/or counseling patient: (1) Anemia Anemia type: other cause (2) Depression Depression Type: other depression Qualified Code(s): F32.89 - Other specified depressive episodes (3) Hypothyroidism Hypothyroidism type: acquired Qualified Code(s): E03.9 - Hypothyroidism, unspecified (4) Asthma Asthma complication type: unspecified Asthma persistence: unspecified Asthma severity: unspecified severity Qualified Code(s): J45.909 - Unspecified asthma, uncomplicated
[2019-01-07] MEDS: AMPICILLIN 2,000 MG in SODIUM CHLOR 0.9% AD-VAN 100 ML IV SCH ×6 (03:50→21:36)
[2019-01-07] MEDS: LEVOTHYROXINE SODIUM 100 MCG TABLET PO SCH (06:19)
[2019-01-07] MEDS: CHLORHEXIDINE GLUCONATE 0.12% 480 ML MT SCH ×2 (08:22→21:23)
[2019-01-07] MEDS: FERROUS SULFATE 325 MG TAB PO SCH (08:23)
[2019-01-07] MEDS: PANTOprazole 40 MG TAB PO SCH (08:24)
[2019-01-07] MEDS: SULFAMETHOXAZOLE/TRIMETHOPRIM DS 800/160MG TAB PO SCH ×2 (08:24→21:36)
[2019-01-07] MEDS: NEPHROCAPS PO SCH (08:24)
[2019-01-07] MEDS: guaiFENesin 600 MG TABCR PO SCH ×2 (08:24→21:23)
[2019-01-07] MEDS: NYSTATIN POWDER 15GM BTL EXT SCH (08:24)
[2019-01-07] MEDS: SERTRALINE HCL 50 MG TABLET PO SCH (08:24)
[2019-01-07] MEDS: FUROSEMIDE 80 MG TAB PO SCH ×2 (08:24→16:42)
[2019-01-07] MEDS: SIMVASTATIN 10 MG TAB PO SCH (08:24)
--- NOTE | 2019-01-07 23:04 | Hospitalist Progress Note ---
Date of Service January 07, 2019 Assessment & Plan (1) Bacteremia: Blood cultures from 12/27 when he was in distress is growing Enterococcus and Providencia. - Stopped ceftolozane/tazobactam on 12/30. - On Bactrim since 12/28 for the Providencia. Added ampicillin on 12/30 for the Enterococcus. End date abx: 01/12/19 for a 2 week course. - Follow up repeat blood cultures from 12/28: no growth, final -Continue antibiotics to complete his course as above (2) Shortness of breath: -Has had significant ups and downs, but now appearing to be more stable in a chronic degree of respiratory failure. breathing is comfortable for now plan for Hospice on Tuesday at [facility] (3) Heart failure, systolic, due to idiopathic cardiomyopathy: Acute on chronic systolic CHF. Last echo in 2015 showing LVEF of 40%. Now with normal EF but with moderately reduced right sided RV function likely secondary to OHS and KEARA. - Continue metoprolol 50 mg po bid -Continue to diurese, with a goal of weaning oxygen so that he can safely return to [facility] on hospice. continue on 80 mg twice daily Lasix he seems to be doing okay. (4) Supratherapeutic INR: likely due to malnutrition will not monitor given hospice status (5) Chronic indwelling Fitch catheter: Since 2015, has been bed-bound since that time. - Fitch was exchanged on 12/20, continue to follow (6) ADAM (acute kidney injury): Creatinine overall improved, continue Fitch drainage for now. (7) UTI (urinary tract infection) due to urinary indwelling Fitch catheter: With UTI on admission secondary to profound obstruction as above. Purulent urine noted to drain out after Fitch replaced by urology. Ur cx from 12/20 grew Stenotrophomonas. ID felt Stenotroph was a colonizer and to not treat. Two urine cultures grew Julia. - Per ID, treated with a full course of fluconazole by recommendations (8) Gross hematuria: Improved, now starting to worsen somewhat again, will give additional vit payton K. (9) Anemia: Acute blood loss anemia in setting of chronic disease anemia and Fe- deficiency anemia. - Blood loss from gross hematuria and also with large hematoma in RUE from straining to pull himself upright/strain. Hematuria now resolved. - Baseline Hgb is 9-10 - Received 7 units PRBCs so far this admission. -He is asymptomatic, and is much more of a comfort goal, so the threshold for transfusion would be much more in line with symptoms than a hemoglobin value. No labs today. (10) Atrial fibrillation and flutter: History of such and has pacer after aflutter ablation. Currently in NSR, paced rhythm, frequent PVCs and nonsustained VT runs. -Rate controlled, anticoagulation being held right now, and on 01/03 hospitalist team discussed with the different strategies to approach when to turn off his pacemaker. (11) KEARA (obstructive sleep apnea): - s/p trach placement 2016 - previous noncompliance with CPAP for KEARA (12) Obesity hypoventilation syndrome: - noted, with trach in place (13) H/O tracheostomy: - placed in 2015 following intubation and mechanical ventilation for respiratory failure - noncompliance with CPAP for KEARA and the trach was placed as a result - Was changed during last admission on 12/02/18 -trach care as per RT (14) Abnormal CT of the abdomen: With a h/o numerous extraperitoneal fluid collections with some up to 5cm in size, ? if these areas were microabscesses vs small hematomas vs a combination of the two. Consider old hematoma from even previous admission as well as possible. New ones noted with INR being significantly supratherapeutic again. - Repeat CT 12/21 with decreased size of collections -Concern would be intra-abdominal bleeding versus small areas of infection (see bacteremia)continue antibiotics, continue to hold warfarin, follow clinically. With his hospice goal, discerning the exact etiology of this (bleeding versus infectious) seems to be significantly less important than making sure he is comfortable no abdominal pain today (15) Renal mass, right: - Hx of right renal mass, unclear if ever diagnosed with cancer. With hospice goals, would hold on any further work-up of this (16) Depression: - Continue sertraline 100 mg daily (17) Hypothyroidism: - Continue levothyroxine 100 mcg daily (18) Morbid obesity with BMI of 60.0-69.9, adult: - HH/DM diet -Certainly with his hypoventilation and need for a tracheostomy, his BMI does play significant role in his illnesses (19) Venous insufficiency: - Chronic, wound consult for ulcerations on the R calf - Lymphedema at baseline (20) Lymphedema: - Wound consulted - appreciate (21) Dyslipidemia: - Cont statin therapy (22) Severe protein-calorie malnutrition: Noted. Diet as tolerated. (23) Asthma: - Hx of such, continue nebs QID as per home meds, no acute issues, and breathing seems to be improving with management of pulmonary edema (24) Nonsustained ventricular tachycardia: Continue metoprolol, pacer discussions as above (25) Hematoma: RUE, from straining, edema improving now. - Elevate arm for swelling, ice (26) DVT prophylaxis: No chemical ppx ordered with supratherapeutic INR, gross hematuria - SCDs not able to be placed due to lymphedema and chronic wounds No significanrt change in plan on 01/06 (27) Discharge planning issues: /case management/hospice all working towards a return to [facility] with hospice care in the near future. Anticipate return once his needs will be able to be met in that environment. plan to go to [facility] on Tuesday Subjective Patient reports no new symptoms. Leslie charles was able to ask how long he is going to be on antibioitcs for. Review of Systems Review of Systems: All systems reviewed & are unremarkable except as noted in HPI & below Physical Exam Physical Exam: Constitutional: WD/WN, vitals as above Eyes: PERRL, conjunctivae normal, anicteric sclerae ENMT: external ear and nose normal, oropharynx normal Neck: trachea midline, no thyromegaly (tracheostomy in place) Respiratory: normal respiratory effort, lungs clear to auscultation Auscultation: + diminished lung sounds (bases) Cardiovascular: Rate/Rhythm: regular rate and regular rhythm Heart Sounds: normal S1 and normal S2; no murmur Vessels: no JVD Extremities: normal capillary refill and + edema (pitting to knees) Gastrointestinal (Abdomen): normal bowel sounds, soft, nontender, no hepatosplenomegaly Musculoskeletal: Head/Neck/Chest: normocephalic and head atraumatic Extremities: + abnormal strength (generalized weakness, cannot transfer or ambulate) Skin: no rashes, warm and dry Neurologic: patellar DTR's 2+ bilat, sensation intact and PERRL, EOMI, accommodation nl, no face palsy, no dysarthria Psychiatric: A+Ox3, euthymic affect Lymphatic: no cervical or axillary lymphadenopathy Results & Data Vital Signs (Past 12 Hours) Vital Signs Temp Pulse Pulse Pulse Pulse Resp BP 01/07/19 19:50 36.8 C 82 83 94 H 19 123/58 L 01/07/19 19:01 36.8 C 83 19 123/58 L 01/07/19 16:00 80 01/07/19 15:54 36.9 C 82 23 01/07/19 12:06 36.9 C 85 20 135/62 01/07/19 12:01 80 BP Pulse Ox 01/07/19 19:50 126/54 L 88 L 01/07/19 19:01 88 L 01/07/19 16:00 01/07/19 15:54 126/54 L 85 L 01/07/19 12:06 93 01/07/19 12:01 PG Care Time/CCT Total # of Minutes Spent Total Time Spent with Patient: Total time spent is greater than 50% in coordination of care (as documented) at patient's floor/unit and/or counseling patient: (1) Anemia Anemia type: other cause (2) Depression Depression Type: other depression Qualified Code(s): F32.89 - Other specified depressive episodes (3) Hypothyroidism Hypothyroidism type: acquired Qualified Code(s): E03.9 - Hypothyroidism, unspecified (4) Asthma Asthma severity: unspecified severity Asthma persistence: unspecified Asthma complication type: unspecified Qualified Code(s): J45.909 - Unspecified asthma, uncomplicated
[2019-01-08] MEDS: AMPICILLIN 2,000 MG in SODIUM CHLOR 0.9% AD-VAN 100 ML IV SCH ×4 (03:49→14:29)
[2019-01-08] MEDS: LEVOTHYROXINE SODIUM 100 MCG TABLET PO SCH (06:03)
[2019-01-08] MEDS: SERTRALINE HCL 50 MG TABLET PO SCH (07:37)
[2019-01-08] MEDS: FERROUS SULFATE 325 MG TAB PO SCH (07:38)
[2019-01-08] MEDS: guaiFENesin 600 MG TABCR PO SCH (07:38)
[2019-01-08] MEDS: PANTOprazole 40 MG TAB PO SCH (07:39)
[2019-01-08] MEDS: FUROSEMIDE 80 MG TAB PO SCH ×2 (07:39→16:14)
[2019-01-08] MEDS: SIMVASTATIN 10 MG TAB PO SCH (07:39)
[2019-01-08] MEDS: NEPHROCAPS PO SCH (07:40)
[2019-01-08] MEDS: SULFAMETHOXAZOLE/TRIMETHOPRIM DS 800/160MG TAB PO SCH (07:40)
[2019-01-08] MEDS: CHLORHEXIDINE GLUCONATE 0.12% 480 ML MT SCH (07:43)
[2019-01-08] MEDS: NYSTATIN POWDER 15GM BTL EXT SCH (07:44)
--- NOTE | 2019-01-08 15:37 | Discharge Summary ---
Date of Service January 08, 2019 Admission HPI Per Admitting Provider This is a 63-year-old male who was recently admitted from 11/29/2018 through 12/08/2018 and discharged back to [facility]. Patient medical comorbidities include A. fib/a flutter on Coumadin, history of DVT, chronic systolic CHF, tachybrady syndrome s/p pacemaker implantation in 2016, during that time he required tracheostomy for acute respiratory decompensation, uses a speaking valve chronically, morbidly obese with BMI of 60, HTN, HLD, hypothyroidism, history of invasive group B strep infection in July, August and September 2017, gait disorder, has been bedbound for approximately 2 years, lower extremity edema, d epression, anemia of chronic disease, KEARA, venous insufficiency, obesity hypoventilation syndrome. During his most recent hospital stay he was diagnosed with septic shock secondary to pseudomonas pneumonia and UTI (due to ESBL Klebsiella and Proteus) he was placed on Zerbaxa during that hospital stay by infectious disease as multiple pathogens were multidrug resistant. The patient has been at [facility] since his discharge. He has been experiencing gross hematuria which started about 3 days ago. It has been worsening to the point of being bright red with clots in davey. Denies pressure or cramping. Pt notes the davey was changed recently, per chart it was on 12/08/18 prior to discharge. Denies issues with shortness of breath or chest pain. He feels the issues with sob has nearly resolved since finishing the antibiotic course from the previous admission. He reports no changes of worsening swelling in his legs or feet. Oral intake has been poor as he states "nothing tastes any good", and therefore has been several days since he has had a BM. Today the patient had routine labs collected at [facility] which revealed significant abnormalities including INR of 10.4, creatinine of 8.10, BUN of 118, sodium 130, anion gap of 14, CO2 of 20, and hemoglobin of 7.1. CKR shows congestive failure. Nephrology consulted for possible needs for dialysis and fluid overload. INR being reversed with Vit K. Principal Diagnosis Bacteremia Discharge Exam Constitutional WD/WN, vitals as above Eyes PERRL, conjunctivae normal, anicteric sclerae ENMT external ear and nose normal, oropharynx normal Neck trachea midline, no thyromegaly (tracheostomy in place) Respiratory normal respiratory effort, lungs clear to auscultation Auscultation: + diminished lung sounds (bases) Cardiovascular Rate/Rhythm: regular rate and regular rhythm Heart Sounds: normal S1 and normal S2; no murmur Vessels: no JVD Extremities: normal capillary refill and + edema (pitting to knees) Gastrointestinal (Abdomen) normal bowel sounds, soft, nontender, no hepatosplenomegaly Musculoskeletal Head/Neck/Chest: normocephalic and head atraumatic Extremities: + abnormal strength (generalized weakness, cannot transfer or ambulate) Skin no rashes, warm and dry Neurologic patellar DTR's 2+ bilat, sensation intact and PERRL, EOMI, accommodation nl, no face palsy, no dysarthria Psychiatric A+Ox3, euthymic affect Lymphatic no cervical or axillary lymphadenopathy Discharge Data Allergies Allergy/AdvReac Type Severity Reaction Status Date / Time cefepime Allergy Intermediate RASH Verified 12/28/18 12:33 latex Allergy Intermediate DERMITITIS Verified 11/29/18 10:01 aztreonam Allergy Mild RASH Verified 11/29/18 10:01 Consultations 12/20/18 13:16 ED Decision to Admit Stat 12/20/18 14:28 Consult Case Management - Discharge Planning Routine Consult Nephrology Routine 12/20/18 17:47 Consult Urology Routine 12/22/18 10:44 Consult Infectious Diseases Routine 12/22/18 12:22 Consult Cardiology Routine 12/27/18 20:14 Consult Infectious Diseases Routine 12/28/18 12:24 Consult Infectious Diseases Routine 12/30/18 17:04 Consult Palliative Care Routine Ordered Studies 12/20/18 16:59 CT abd pelvis wo con Routine 12/21/18 07:58 CT abd pelvis IV con only Urgent 12/23/18 08:00 US venous doppler LE Routine Hospital Course (1) Bacteremia: Blood cultures from 12/27 when he was in distress is growing Enterococcus and Providencia. - Stopped ceftolozane/tazobactam on 12/30. - On Bactrim since 12/28 for the Providencia. Added ampicillin on 12/30 for the Enterococcus. End date abx: 01/12/19 for a 2 week course. - Follow up repeat blood cultures from 12/28: no growth, final -Continue antibiotics to complete his course as above (2) Shortness of breath: -Has had significant ups and downs, but now appearing to be more stable in a chronic degree of respiratory failure. breathing is comfortable for now plan for Hospice on Tuesday at [facility] patient essentially has end stage respiratory failure palliative care will follow patient at [facility] (3) Heart failure, systolic, due to idiopathic cardiomyopathy: Acute on chronic systolic CHF. Last echo in 2015 showing LVEF of 40%. Now with normal EF but with moderately reduced right sided RV function likely secondary to OHS and KEARA. - Continue metoprolol 50 mg po bid -Continue to diurese, continue on 80 mg twice daily Lasix he seems to be doing okay. (4) Supratherapeutic INR: likely due to malnutrition will not monitor given hospice status (5) Chronic indwelling Davey catheter: Since 2015, has been bed-bound since that time. - Davey was exchanged on 12/20, continue to follow (6) ADAM (acute kidney injury): Creatinine overall improved, continue Davey drainage for now. (7) UTI (urinary tract infection) due to urinary indwelling Davey catheter: With UTI on admission secondary to profound obstruction as above. Purulent urine noted to drain out after Davey replaced by urology. Ur cx from 12/20 grew Stenotrophomonas. ID felt Stenotroph was a colonizer and to not treat. Two urine cultures grew Julia. - Per ID, treated with a full course of fluconazole by recommendations, this was completed during admission (8) Gross hematuria: resolved (9) Anemia: Acute blood loss anemia in setting of chronic disease anemia and Fe- deficiency anemia. - Blood loss from gross hematuria and also with large hematoma in RUE from straining to pull himself upright/strain. Hematuria now resolved. - Baseline Hgb is 9-10 - Received 7 units PRBCs during admission. -He is asymptomatic, and is much more of a comfort goal, so the threshold for transfusion would be much more in line with symptoms than a hemoglobin value. no planned lab draws given hospice (10) Atrial fibrillation and flutter: History of such and has pacer after aflutter ablation. Currently in NSR, paced rhythm, frequent PVCs and nonsustained VT runs. -Rate controlled, anticoagulation being held right now, and on 01/03 hospitalist team discussed with the different strategies to approach when to turn off his pacemaker. (11) KAERA (obstructive sleep apnea): - s/p trach placement 2015 - previous noncompliance with CPAP for KEARA (12) Obesity hypoventilation syndrome: - noted, with trach in place (13) H/O tracheostomy: - placed in 2016 following intubation and mechanical ventilation for respiratory failure - noncompliance with CPAP for KEARA and the trach was placed as a result - Was changed during last admission on 12/02/18 -trach care as per RT (14) Abnormal CT of the abdomen: With a h/o numerous extraperitoneal fluid collections with some up to 5cm in size, ? if these areas were microabscesses vs small hematomas vs a combination of the two. Consider old hematoma from even previous admission as well as possible. New ones noted with INR being significantly supratherapeutic again. - Repeat CT 12/21 with decreased size of collections -Concern would be intra-abdominal bleeding versus small areas of infection (see bacteremia)continue antibiotics, continue to hold warfarin, follow clinically. With his hospice goal, discerning the exact etiology of this (bleeding versus infectious) seems to be significantly less important than making sure he is comfortable no abdominal pain today (15) Renal mass, right: - Hx of right renal mass, unclear if ever diagnosed with cancer. With hospice goals, would hold on any further work-up of this (16) Depression: - Continue sertraline 100 mg daily (17) Hypothyroidism: - Continue levothyroxine 100 mcg daily (18) Morbid obesity with BMI of 60.0-69.9, adult: - HH/DM diet -Certainly with his hypoventilation and need for a tracheostomy, his BMI does play significant role in his illnesses (19) Venous insufficiency: - Chronic, wound consult for ulcerations on the R calf - Lymphedema at baseline (20) Lymphedema: - Wound consulted - appreciate (21) Dyslipidemia: - Cont statin therapy (22) Severe protein-calorie malnutrition: Noted. Diet as tolerated. (23) Asthma: - Hx of such, continue nebs QID as per home meds, no acute issues, and breathing seems to be improving with management of pulmonary edema (24) Nonsustained ventricular tachycardia: Continue metoprolol, pacer discussions as above (25) Hematoma: RUE, from straining, edema improving now. - Elevate arm for swelling, ice Total Time Total Time Spent Total Time Spent (In Minutes): 32 minutes Total Time Includes: Examination of the Patient, Discharge Planning, Medication Reconciliation and Communication With Other Providers (palliative care, case management) Discharge Plan Discharge Items Patient Disposition: Hospice - Medical Facility Reason For Visit: ADAM,HEMATURIA Condition on Discharge: Fair Health Concerns: comfort measures Goals: transition to hospice care for respiratory failure Activity: Resume your previous activity Non-emergency contact: Primary Care Provider Call non-emergency contact if: you have any medication questions, your symptoms worsen, your pain is not controlled and you have a fever Follow-up/Referrals: [facility] [Primary Care Provider] - Diet: Carb Consistent or DM2 Addtl Attending Provider Instructions: Medications: - BACTRIM and AMOXICILLIN: take each for 4 more days, last day is 01/12 - LASIX: dose increased to 80mg twice a day from 40mg daily, to keep volume status acceptable - COUMADIN: stopped - NYSTATIN and CALMOSEPTINE: use as prescribed for skin folds, inguinal area and legs and stomach Patient with end stage respiratory failure, with tracheostomy will transition to hospice at [facility], palliative care will follow patient should only return to hospital if he cannot be kept comfortable at [facility] Bacteremia: will need 4 more days of Bactrim and Amoxicillin medication list tailored to comfort care, can be further decreased as provider sees fit at SNF Pending Studies at Discharge: No Stand-Alone Forms: [facility] Skilled Items Patient informed of condition?: Yes DNR: Yes Discharge Level of Care: Skilled Communicable Disease: No Discharge Prognosis: Stable Lines: None Urinary Catheter: Yes Medications and DC Order Prescriptions: New furosemide 80 mg Tablet 80 mg PO BID17 30 Days Qty: 60 RF: 0 Calmoseptine 0.44-20.6 % Ointment 1 applic EXT Q6 PRN (Reason: skin irritation) 30 Days Qty: 113 RF: 0 nystatin [Nystop] 100,000 unit/gram Powder 1 applic EXT DAILY 30 Days Qty: 60 RF: 0 Renal Caps 1 mg Capsule 1 cap PO QAM 30 Days Qty: 30 RF: 0 amoxicillin 500 mg capsule 500 mg PO Q12H Qty: 8 RF: 0 Continued ferrous sulfate 325 mg (65 mg iron) tablet 325 mg PO BID RF: 0 tamsulosin 0.4 mg capsule 0.4 mg PO DAILY RF: 0 albuterol sulfate 2.5 mg /3 mL (0.083 %) solution for nebulization 2.5 mg inhalation Q4H PRN (Reason: shortness of breath or wheezing) RF: 0 sertraline 100 mg tablet 100 mg PO DAILY RF: 0 pantoprazole 40 mg tablet,delayed release (DR/EC) 40 mg PO DAILY RF: 0 simvastatin 10 mg tablet 10 mg PO DAILY RF: 0 metoprolol tartrate 25 mg tablet 25 mg PO DAILY RF: 0 levothyroxine 100 mcg tablet 100 mcg PO DAILY RF: 0 Discontinued aspirin 81 mg tablet 81 mg PO DAILY RF: 0 warfarin 4 mg tablet 4 mg PO DAILY RF: 0 furosemide 40 mg tablet 40 mg PO DAILY RF: 0 Discharge Orders: Discharge Order (Routine); Ordered 01/08/19 Ordered By: Miguel Graves Admission Data Admit Date/Time: 12/20/18 13:08 Attending Provider: Miguel Graves Admit Provider: Margaret Garland Primary Care Provider: Bharathi Wilson Other Providers: Bharathi Wilson ; Bhavik Coleman ; Margaret Garland ; Dirk Coles ; Jeffry Hawkins I. ; Jillian Morales ; Star Harris ; Jennifer Moe ; Yoni Hawkins. Other Interventions: Discharge Summary Assessment (RN) Last Done: 01/08/19 15:07 DC Date/Time DO NOT enter until pt leaves facility: 01/08/19 16:58
== END 2019-01-08 16:58 | disposition hospice, inpatient (51) | DRG 698 ==
LOC: ED 11:07 → 2S 13:08 → SUATTDRO 13:08 → 2S 13:36 → 2N 12-24 10:57 → 1E 12-27 15:05 → 2E 12-29 13:41
DX: E43 Unspecified severe protein-calorie malnutrition; S46.901A Unspecified injury of unspecified muscle, fascia and tendon at shoulder and upper arm level, right arm, initial encounter; Z74.01 Bed confinement status; Z51.5 Encounter for palliative care; N18.9 Chronic kidney disease, unspecified; D62 Acute posthemorrhagic anemia; R78.81 Bacteremia; E87.0 Hyperosmolality and hypernatremia; T83.021A Displacement of indwelling urethral catheter, initial encounter; Z86.14 Personal history of Methicillin resistant Staphylococcus aureus infection; E66.2 Morbid (severe) obesity with alveolar hypoventilation; S37.39XA Other injury of urethra, initial encounter; B37.49 Other urogenital candidiasis; N30.91 Cystitis, unspecified with hematuria; I49.3 Ventricular premature depolarization; Z85.528 Personal history of other malignant neoplasm of kidney; I48.0 Paroxysmal atrial fibrillation; Z86.718 Personal history of other venous thrombosis and embolism; T83.511A Infection and inflammatory reaction due to indwelling urethral catheter, initial encounter; J96.11 Chronic respiratory failure with hypoxia; J45.909 Unspecified asthma, uncomplicated; R79.1 Abnormal coagulation profile; J96.02 Acute respiratory failure with hypercapnia; B95.2 Enterococcus as the cause of diseases classified elsewhere; Y84.6 Urinary catheterization as the cause of abnormal reaction of the patient, or of later complication, without mention of misadventure at the time of the procedure; F32.9 Major depressive disorder, single episode, unspecified; C64.9 Malignant neoplasm of unspecified kidney, except renal pelvis; Y92.129 Unspecified place in nursing home as the place of occurrence of the external cause; Z93.0 Tracheostomy status; Z79.01 Long term (current) use of anticoagulants; I48.92 Unspecified atrial flutter; E87.1 Hypo-osmolality and hyponatremia; I50.23 Acute on chronic systolic (congestive) heart failure; E03.9 Hypothyroidism, unspecified; E78.5 Hyperlipidemia, unspecified; Z91.040 Latex allergy status; X50.9XXA Other and unspecified overexertion or strenuous movements or postures, initial encounter; I13.10 Hypertensive heart and chronic kidney disease without heart failure, with stage 1 through stage 4 chronic kidney disease, or unspecified chronic kidney disease; Z95.0 Presence of cardiac pacemaker; I49.5 Sick sinus syndrome; I25.5 Ischemic cardiomyopathy